=== PATIENT | female | born 1950 | race Caucasian/White ===

== ENCOUNTER 2016-12-22 13:29 | Emergency (ER) | payer OTHER ==
[~2016-12-22] VITALS: Ht 165.1 cm; Wt 96.2 kg
[~2016-12-22 13:29] MED LIST: ALBU1AER9 INH; CLOP1TAB15 PO; FLUT110A INH; GABA-113 PO; LISI-729 PO; METO25TA3 PO; OXYC-57 PO; PANT40TA PO; RANI300T2 PO; SYMIN/8045 INH; TRAZ100T29 PO; VITAMIN B12 INJ INJ
[2016-12-22 13:33] VITALS: TEMP 36.8; O2SAT 95; Ht 165.1 cm; Wt 96.2 kg
[2016-12-22] MEDS ORDERED: OXYCODONE HCL IR 5 MG TAB (IMMEDIATE RELEASE) PO STA (13:51)
[2016-12-22] MEDS ORDERED: ONDANSETRON 4MG OD TAB PO STA (13:51)
[2016-12-22] MEDS ORDERED: HYDR-4313 PO (13:53)
[2016-12-22] MEDS ORDERED: CYAN100074 IM (13:58)
[2016-12-22] MEDS ORDERED: PARO30TA4 PO (13:58)
--- NOTE | 2016-12-22 14:01 | EMERGENCY ROOM VISIT NOTE ---
History Report prepared by Jo-Ann: Irene Enriquez Under the Supervision of: Dr. Doug Quinteros M.D. First contact with patient: 13:46 Chief Complaint: HEAD INJURY (MINOR) Stated Complaint: FALL 1 WK AGO, HIT BACK OF HEAD, REFERRED History of Present Illness The patient is a 66 year old female who presents to the Emergency Room with complaints of a persistent, worsening headache that began 9 days ago. She currently rates her discomfort as a 9/10 in severity. The patient states that she was walking out of the post office 9 days ago and states that her feet went out from under her, noting that she hit the back of her head and back. She notes that her headache has been worsening since the day she fell. The patient additionally notes neck pain, back pain, and shoulder pain. She notes that she has been getting lightheaded intermittently and has been nauseous. The patient denies any loss of consciousness, increased shortness of breath, or vomiting. She states that she is a smoker. The patient states that she is on Aspirin and Plavix, but denies being on Coumadin. She states that she consulted her PCP today and states that she was told to come to the emergency department for further work up. The patient states that she takes Vicodin for pain, noting that she took two prior to arrival without relief of her symptoms. Source of History: patient Onset: 9 days ago Position: head Symptom Intensity: 9/10 Timing: worsening Associated Symptoms: + back pain, + nausea, + neck pain, No LOC, No SOB, No vomiting Note: Associated Symptoms: shoulder pain, recent fall, lightheaded Review of Systems See HPI for pertinent positives & negatives. A total of 10 systems reviewed and were otherwise negative. Past Medical & Surgical Medical Problems: (1) Williamson's esophagus (2) Coronary artery disease (3) GERD (gastroesophageal reflux disease) (4) Hematemesis (5) HTN (hypertension) (6) Hypertension Surgical Problems: (1) H/O cardiac catheterization (2) H/O percutaneous transluminal coronary angioplasty (3) S/P CABG (coronary artery bypass graft) (4) Stented coronary artery Family History Cancer Heart disease Social History Smoking Status: Current Every Day Smoker Marital Status: Occupation Status: disabled Current/Historical Medications Scheduled Acetaminophen/Hydrocodone (Hydrocodone/Acetaminophen 5-325 mg), 1 TAB PO BID Aspirin (Aspirin Chewable), 81 MG PO QAM Atorvastatin (Lipitor), 80 MG PO HS Budesonide/Formoterol Fumarate (Symbicort 80/4.5 Inhaler), 2 PUFFS INH BID Clopidogrel (Plavix), 75 MG PO QAM Cyanocobalamin (Vitamin Deficiency Inject), Unknown Dose IM MONTHLY Ferrous Sulfate (Iron Supplement), 1 TAB PO QAM Fluticasone Propionate Hfa (Flovent Hfa 110MCG Inhaler), 2 PUFF INH BID Fluticasone Propionate (Nasal) (Flonase), 2 SPRAYS MARTINEZ QAM Gabapentin (Neurontin), 300 MG PO TID Lisinopril (Prinivil), 5 MG PO QAM Loratadine (Claritin), 10 MG PO QAM Metoprolol Succ (Toprol Xl) (Toprol-Xl), 12.5 MG PO QAM Montelukast Sodium (Singulair), 10 MG PO QAM Oxygen (Oxygen), 2 LITERS NA HS & PRN Pantoprazole (Protonix), 40 MG PO BID Paroxetine (Paroxetine HCl), 30 MG PO DAILY Ranitidine (Zantac), 300 MG PO HS Tiotropium [place] (Spiriva Handihaler), 1 CAP INH QAM Scheduled PRN Albuterol (Proair Hfa), 2 PUFF INH Q4 PRN for SOB/Wheezing Allergies Coded Allergies: No Known Allergies (Verified , 11/05/16) Physical Exam Vital Signs Date Time Temp Pulse Resp B/P Pulse Ox O2 Delivery O2 Flow Rate FiO2 12/22/16 15:15 84 16 138/78 12/22/16 13:33 36.8 72 18 122/73 95 Room Air Physical Exam GENERAL: Patient is in no acute distress. HEENT: No acute trauma, normocephalic atraumatic, mucous membranes moist, no nasal congestion, no scleral icterus. NECK: Contusion noted to posterior neck, no hematoma, no yanelis stepoff, but entire area is sore to touch. No stridor, no adenopathy, trachea is midline. LUNGS: Scattered wheezing, breath sounds are equal, no respiratory distress, no rhonchi. HEART: Without murmurs gallops or rubs, regular rate and rhythm. ABDOMEN: Soft, nontender, bowel sounds positive, no hernias, no peritonitis. EXTREMITIES: Brace on left wrist. No cyanosis or edema, no signs for acute trauma. NEUROLOGIC: Oriented x 3, no acute motor or sensory deficits, no focal weakness. SKIN: No rash, no jaundice, no diaphoresis. Medical Decision & Procedures ER Provider Diagnostic Interpretation: CT results as stated below per my review and radiologist interpretation: CT HEAD WITHOUT CONTRAST (CT) CLINICAL HISTORY: Headache. Head trauma. COMPARISON STUDY: 09/01/2006 TECHNIQUE: Axial CT of the brain is performed from the vertex to the skull base. IV contrast was not administered for this examination. CT DOSE: FINDINGS: No intra or extra-axial mass lesions are visualized. There is no CT evidence of acute cortical infarction. There is no evidence of midline shift. There is no acute hemorrhage. No calvarial fractures are visualized. There are minimal white matter hypodensities likely on a small vessel basis. There is no evidence of pathologic ventricular dilatation. There is no acute sinusitis. Postsurgical changes are present within the paranasal sinuses. The right mastoid is somewhat sclerotic. IMPRESSION: No acute intracranial findings Electronically signed by: Adrien Hebert M.D. 12/22/2016 2:25 PM Dictated Date/Time: 12/22/2016 2:[address] DOSE: 929.66 mGy.cm HISTORY: FALL, NECK PAIN TECHNIQUE: Multiaxial CT images of the cervical spine were performed and reformatted in the sagittal and coronal plane without the use of contrast. COMPARISON: None. FINDINGS: No fractures. No subluxation. Prevertebral soft tissues and the C1-C2 interval are intact. No pneumothorax. Distended proximal esophagus. Moderate disc space narrowing at C5-C6 and C6-C7 with small endplate osteophytes present results in mild central canal narrowing at these levels. IMPRESSION: No fractures within the cervical spine. Electronically signed by: John Jones M.D. 12/22/2016 3:02 PM Dictated Date/Time: 12/22/2016 2:42 PM Medications Administered Medications (Trade) Dose Ordered Sig/Sj Route Start Time Stop Time Status Last Admin Dose Admin Ondansetron HCl (Zofran Odt) 4 mg NOW STAT PO 12/22/16 13:51 12/22/16 13:54 DC 12/22/16 14:08 4 MG Oxycodone HCl (Roxicodone Immediate Rel Tab) 5 mg NOW STAT PO 12/22/16 13:51 12/22/16 13:54 DC 12/22/16 14:09 5 MG ED Course 1347: The patient was evaluated in room A8. A complete history and physical exam was performed. 1351: Ordered Oxycodone HCl 5 mg PO, Zofran Odt 4 mg PO. 1507: I reevaluated the patient and she is resting comfortably. I discussed the exam findings with her and I discussed the treatment plan. She verbalized complete understanding and agreement. She is ready to go home. Medical Decision The patient is a 66 year old female who presents to the ED with complaints of a headache. Differential diagnoses considered include Intracranial bleeding, cervical spine fracture, concussion, contusion, skull fracture. The patient presents for a headache and nausea. She fell 9 days ago. She is on aspirin and Plavix. She has an older-appearing hematoma to the posterior cervical spine on my exam. Brain CT shows no skull fracture, no bleed or mass effect. C-spine CT shows no acute fracture. I could not find evidence for injury to the other areas of her body based on my exam. The patient's fall does sound mechanical. She slipped on a slippery surface and went to the ground. During her ER stay, she was given oral oxycodone for pain, oral Zofran for nausea. She is being discharged, I talked to her about the possibility of concussion. She will follow with her doctors office and return here for worsening symptoms. She has pain meds to use at home for her discomfort. Impression Primary Impression: Closed head injury Additional Impressions: Concussion Neck pain, acute Scribe Attestation The scribe's documentation has been prepared under my direction and personally reviewed by me in its entirety. I confirm that the note above accurately reflects all work, treatment, procedures, and medical decision making performed by me. Departure Information Dispostion Home / Self-Care Referrals Juliane Oconnor D.O. (PCP) Forms HOME CARE DOCUMENTATION FORM, IMPORTANT VISIT INFORMATION Patient Instructions Concussion, My [facility] [place] [facility] Additional Instructions pain meds at home as before ice may help tylenol may help rest follow with april ag[facility] brain CT scan today was ok--no bleeding noted Problem Qualifiers
--- NOTE | 2016-12-22 14:27 | DIAGNOSTIC IMAGING REPORT ---
CT HEAD WITHOUT CONTRAST (CT) CLINICAL HISTORY: Headache. Head trauma. COMPARISON STUDY: 09/01/2006 TECHNIQUE: Axial CT of the brain is performed from the vertex to the skull base. IV contrast was not administered for this examination. CT DOSE: FINDINGS: No intra or extra-axial mass lesions are visualized. There is no CT evidence of acute cortical infarction. There is no evidence of midline shift. There is no acute hemorrhage. No calvarial fractures are visualized. There are minimal white matter hypodensities likely on a small vessel basis. There is no evidence of pathologic ventricular dilatation. There is no acute sinusitis. Postsurgical changes are present within the paranasal sinuses. The right mastoid is somewhat sclerotic. IMPRESSION: No acute intracranial findings Electronically signed by: Adrien Hebert M.D. 12/22/2016 2:25 PM Dictated Date/Time: 12/22/2016 2:24 PM
--- NOTE | 2016-12-22 15:04 | DIAGNOSTIC IMAGING REPORT ---
CERVICAL SPINE CT CT DOSE: 929.66 mGy.cm HISTORY: FALL, NECK PAIN TECHNIQUE: Multiaxial CT images of the cervical spine were performed and reformatted in the sagittal and coronal plane without the use of contrast. COMPARISON: None. FINDINGS: No fractures. No subluxation. Prevertebral soft tissues and the C1-C2 interval are intact. No pneumothorax. Distended proximal esophagus. Moderate disc space narrowing at C5-C6 and C6-C7 with small endplate osteophytes present results in mild central canal narrowing at these levels. IMPRESSION: No fractures within the cervical spine. Electronically signed by: John Jones M.D. 12/22/2016 3:02 PM Dictated Date/Time: 12/22/2016 2:42 PM
[2016-12-22 15:15] VITALS: BP 138/78; PULSE 84
[2016-12-22] MEDS ORDERED: MONT1TAB3 PO (15:24)
[2016-12-22] MEDS ORDERED: BUPR-79 PO (15:24)
[2016-12-22] MEDS ORDERED: ATOR-26 PO (15:24)
[2016-12-22] MEDS ORDERED: METO-157 PO (15:24)
[2016-12-22] MEDS ORDERED: OXGN (15:24)
[2016-12-22] MEDS ORDERED: TIOTCAP INH (15:24)
[2016-12-22] MEDS ORDERED: ASPCH81X PO (15:24)
[2016-12-22] MEDS ORDERED: FERR325T51 PO (15:24)
[2016-12-22] MEDS ORDERED: CLR10 PO (15:24)
[2016-12-22] MEDS ORDERED: FLUT0.0529 NAE (16:53)
[2017-01-15] MEDS ORDERED: FERROUS SULFATE PO (14:08)
[2017-01-15] MEDS ORDERED: PRLSR20 PO (14:08)
[2017-01-15] MEDS ORDERED: METO-157 PO (14:08)
[2017-01-15] MEDS ORDERED: VICODIN PO (14:08)
[2017-01-15] MEDS ORDERED: SUMA100T16 PO (14:08)
[2017-01-15] MEDS ORDERED: LXT PO (14:08)
[2017-01-15] MEDS ORDERED: METO1TAB69 PO (14:08)
[2017-01-15] MEDS ORDERED: SIMV80TA2 PO (14:10)
[2017-01-15] MEDS ORDERED: GABA-113 PO (14:11)
[2017-01-15] MEDS ORDERED: FLUO40CA8 PO (14:12)
[2017-01-15] MEDS ORDERED: NTRGSL/4 UT (14:15)
[2017-03-23] MEDS ORDERED: METO1TAB31 PO (19:45)
[2017-03-27] MEDS ORDERED: LVQ500 PO (12:20)
[2017-03-27] MEDS ORDERED: PRED10TA PO (12:20)
[2017-03-27] MEDS ORDERED: NCDT21 TD (12:20)
[2017-04-09] MEDS ORDERED: TRAZ100T29 PO (09:24)
[2017-04-09] MEDS ORDERED: PRED10TA PO (09:24)
[2017-04-09] MEDS ORDERED: FERR1TAB23 PO (09:24)
[2017-04-09] MEDS ORDERED: FLUO20CA20 PO (09:24)
[2017-04-09] MEDS ORDERED: OMEP40CA41 PO (09:27)
== END 2016-12-22 15:16 | disposition home or self-care (01) ==
LOC: C.EDB 13:31 → C.EDD 15:16
DX: S06.0X0A Concussion without loss of consciousness, initial encounter (principal); M54.2 Cervicalgia; W19.XXXA Unspecified fall, initial encounter; Y92.242 Post office as the place of occurrence of the external cause; F17.210 Nicotine dependence, cigarettes, uncomplicated; Z79.82 Long term (current) use of aspirin; Z79.01 Long term (current) use of anticoagulants; K22.70 Barrett's esophagus without dysplasia; I25.10 Atherosclerotic heart disease of native coronary artery without angina pectoris; K21.9 Gastro-esophageal reflux disease without esophagitis; I10 Essential (primary) hypertension; Z95.5 Presence of coronary angioplasty implant and graft; Z95.1 Presence of aortocoronary bypass graft; Z79.899 Other long term (current) drug therapy

== ENCOUNTER 2017-01-20 10:04 | Day surgery (SDC) | payer OTHER ==
[2017-01-15 14:17] VITALS: BMI 34.0
--- NOTE | 2017-01-15 15:12 | PAT Medication Instructions ---
Service Date Jan 15, 2017. Current Home Medication List Albuterol (Proair Hfa), 2 PUFF INH Q4 PRN for SOB/Wheezing Aspirin (Aspirin Chewable), 81 MG PO QAM Budesonide/Formoterol Fumarate (Symbicort 80/4.5 Inhaler), 2 PUFFS INH BID Clopidogrel (Plavix), 75 MG PO QAM Cyanocobalamin (Vitamin Deficiency Inject), Unknown Dose IM MONTHLY Fluoxetine (Prozac), 40 MG PO QAM Fluticasone Propionate Hfa (Flovent Hfa 110MCG Inhaler), 2 PUFF INH BID Fluticasone Propionate (Nasal) (Flonase), 2 SPRAYS MARTINEZ QAM Gabapentin (Neurontin), 300 MG PO AM/NOON Gabapentin (Neurontin), 600 MG PO HS Laxative (Laxative), 1 TAB PO PRN Loratadine (Claritin), 10 MG PO QAM Metoclopramide (Reglan), 5 MG PO QAM Metoprolol Succ (Toprol Xl) (Toprol-Xl ), 100 MG PO QAM Montelukast Sodium (Singulair), 10 MG PO QAM Nitroglycerin (Nitrostat), 0.4 MG UT PRN Omeprazole (Prilosec), 40 MG PO QAM Oxygen (Oxygen), 2 LITERS NA HS & PRN Paroxetine (Paroxetine HCl), 30 MG PO QAM Ranitidine (Zantac), 300 MG PO HS Simvastatin (Zocor), 80 MG PO QAM Sumatriptan Succinate (Imitrex), 100 MG PO PRN PRN for UD Tiotropium [place] (Spiriva Handihaler), 1 CAP INH QAM [Ferrous Sulfate], 150 MG PO QAM [Vicodin], 1-2 TAB PO Q4H 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 Instructions For Your Scheduled Surgery - Continue as directed: Nitroglycerin (Nitrostat), 0.4 MG UT PRN - Instructions per surgeon and prescribing physician: Clopidogrel (Plavix), 75 MG PO QAM Aspirin (Aspirin Chewable), 81 MG PO QAM - Hold the following medications the morning of surgery: [Ferrous Sulfate], 150 MG PO QAM Laxative (Laxative), 1 TAB PO PRN Loratadine (Claritin), 10 MG PO QAM - Take the following medications the morning of surgery with a sip of water: Albuterol (Proair Hfa), 2 PUFF INH Q4 PRN for SOB/Wheezing (use if needed; BRING TO HOSPITAL) [Vicodin], 1-2 TAB PO Q4H PRN for RN (may take if needed up to 4 hours prior to surgery) Budesonide/Formoterol Fumarate (Symbicort 80/4.5 Inhaler), 2 PUFFS INH BID Fluticasone Propionate Hfa (Flovent Hfa 110MCG Inhaler), 2 PUFF INH BID Fluoxetine (Prozac), 40 MG PO QAM Omeprazole (Prilosec), 40 MG PO QAM Simvastatin (Zocor), 80 MG PO QAM Paroxetine (Paroxetine HCl), 30 MG PO QAM Gabapentin (Neurontin), 300 MG PO AM/NOON Metoclopramide (Reglan), 5 MG PO QAM Metoprolol Succ (Toprol Xl) (Toprol-Xl ), 100 MG PO QAM Montelukast Sodium (Singulair), 10 MG PO QAM Fluticasone Propionate (Nasal) (Flonase), 2 SPRAYS MARTINEZ QAM Tiotropium [place] (Spiriva Handihaler), 1 CAP INH QAM Sumatriptan Succinate (Imitrex), 100 MG PO PRN PRN for UD - Take the following medications as scheduled the night before surgery: Albuterol (Proair Hfa), 2 PUFF INH Q4 PRN for SOB/Wheezing [Vicodin], 1-2 TAB PO Q4H PRN for RN Budesonide/Formoterol Fumarate (Symbicort 80/4.5 Inhaler), 2 PUFFS INH BID Fluticasone Propionate Hfa (Flovent Hfa 110MCG Inhaler), 2 PUFF INH BID Laxative (Laxative), 1 TAB PO PRN Gabapentin (Neurontin), 600 MG PO HS Ranitidine (Zantac), 300 MG PO HS Sumatriptan Succinate (Imitrex), 100 MG PO PRN PRN for UD If you have any questions please call us at [phone] or [phone] or [phone]
--- NOTE | 2017-01-15 15:19 | DIAGNOSTIC IMAGING REPORT ---
CHEST 2 VIEWS ROUTINE HISTORY: Preop. COMPARISON: Chest 06/03/2016. FINDINGS: There are postoperative changes. The heart is stable in size. Prior cholecystectomy. Stable blunting of the costophrenic sulci suggest trace pleural effusions or pleural scarring. Linear densities within the right mid to lower lung zone likely represents scarring. This is also unchanged. No pneumothorax. No new focal lung consolidations. No evidence for pulmonary edema. IMPRESSION: No significant change compared to the prior study. No acute process. Electronically signed by: John Jones M.D. 01/15/2017 3:18 PM Dictated Date/Time: 01/15/2017 3:16 PM
[2017-01-15 15:26] LABS: BASO % 0.3 %; BASO ABS # 0.03 K/uL (0-0.2); COMPLETE YES; EOS % 3.3 %; HEMATOCRIT 42.7 % (37-47); LYMPH % 27.2 %; LYMPH ABS # 3.24 K/uL (1.2-3.4); MEAN CELL VOLUME 92.8 fL (80-100); MEAN CORPUSCULAR HEMOGLOBIN 30.7 pg (25-34); MEAN PLATELET VOLUME 9.5 fL (7.4-10.4); MONO % 7.6 %; NEUT % 60.6 %; PLATELET COUNT 425 K/uL (130-400); WHITE BLOOD COUNT 11.93 K/uL (4.8-10.8)
[2017-01-15 15:28] LABS: URINE APPEARANCE CLEAR (CLEAR); URINE BILIRUBIN NEG (NEG); URINE COLOR YELLOW; URINE NITRITE NEG (NEG); URINE SPECIFIC GRAVITY 1.004 (1.000-1.030); UROBILINOGEN NEG (NEG)
[2017-01-15 15:30] LABS: MANUAL MICROSCOPIC REQUIRED? NO; REVIEW REQ? NO
[2017-01-15 15:38] LABS: PARTIAL THROMBOPLASTIN RATIO 1.1; PROTHROMBIN TIME (PATIENT) 10.6 SECONDS (9.0-12.0)
[2017-01-15 15:49] LABS: BUN/CREATININE RATIO 10.8 (10-20); CALCIUM 9.3 mg/dl (8.5-10.1); CREATININE 0.97 mg/dl (0.60-1.20); POTASSIUM 3.9 mmol/L (3.5-5.1)
--- NOTE | 2017-01-19 17:19 | HISTORY & PHYSICAL EXAMINATION ---
DATE OF ADMISSION: 01/20/2017 HISTORY OF PRESENT ILLNESS: The patient is a 66-year-old white female, 5 feet 5 inches, 218 pounds, BMI of 36.28. The patient presents after sustaining a fall injuring her right elbow. She has a calcification avulsion of a piece of chip of bone from her lateral epicondyle, which has been ongoing painful. It is palpable under the skin and is painful for her. She has no evidence of disruption of her extensor mechanism. She is neurovascularly and neurologically intact. PAST MEDICAL HISTORY: Significant for previous history of angina, previous myocardial infarction, hypertension, hypercholesterolemia, history of a previous asthma as well as chronic cough, shortness of breath when lying flat, no history of thyroid or diabetes. PAST SURGICAL HISTORY: Consistent with previous ganglion cyst excision. MEDICATIONS: Include metoprolol 100 mg b.i.d., omeprazole 20 mg daily, lorazepam 0.5 mg p.o. at bedtime, Plavix 75 mg 1 p.o. daily, Zetia 10 mg p.o. daily, simvastatin 80 mg p.o. daily, trazodone 50 mg p.o. at bedtime, Singulair 81 mg p.o. daily. REVIEW OF SYSTEMS: Otherwise unremarkable. See history of present illness for pertinent positives. PHYSICAL EXAMINATION: GENERAL: Reveals a very pleasant 66-year-old white female, 5 fee 5 inches, 218, BMI of 36.28 with the above complaints noted. HEENT: Otherwise unremarkable, atraumatic, normocephalic. HEART: Regular at 72 beats per minute. LUNGS: Clear without rales, rhonchi, or wheezes noted. ABDOMEN: Soft, nontender, nondistended. Bowel sounds are present in all 4 quadrants. RECTAL: No rectal examination was performed. MUSCULOSKELETAL: Consistent with that of a painful right elbow with piece of free floating calcification. PLAN: For surgical procedure. Postop pain management, DVT prophylaxis, antibiotics as noted above. MTDD
[~2017-01-20] VITALS: Ht 165.1 cm; Wt 95.0 kg
--- NOTE | 2017-01-20 07:16 | History & Physical Bridge Note ---
H&P Re-Evaluation Bridge Note: I have examined the patient, reviewed the History & Physical and in the interval since the performance of the History & Physical I have noted the following changes of clinical significance: No changes noted
[~2017-01-20 10:04] MED LIST changes: +ASPCH81X PO; +BUPIVACAINE/EPINEPHRINE 0.25% 1:200,000 30 ML VIAL ONE; +CEFAZOLIN 2000 MG/60 ML D5W 60 ML IV SCH; +CLR10 PO; +CYAN100074 IM; +DEXAMETHASONE SOD INJ 4 MG/ML VIAL ONE; +FENTANYL CITRATE INJ 50 MCG/1 ML 2 ML VIAL ONE; +FERROUS SULFATE PO; +FLUO40CA8 PO; +FLUT0.0529 NAE; +LACTATED RINGER'S 1000ML IV SCH; +LIDOCAINE HCL 2% 2 ML VIAL (20MG/ML) ONE; -LISI-729 PO; +LXT PO; +METO-157 PO; +METO1TAB69 PO; -METO25TA3 PO; +MIDAZOLAM HCL 1 MG/ML 2ML VIAL ONE; +MONT1TAB3 PO; +NTRGSL/4 UT; +ONDANSETRON INJ 2 MG/ML 2 ML VIAL ONE; +OXGN; -OXYC-57 PO; -PANT40TA PO; +PARO30TA4 PO; +PRLSR20 PO; +PROPOFOL IV EMULSION 10 MG/ML 20 ML VIAL IV ONE; +SIMV80TA2 PO; +SUMA100T16 PO; +TIOTCAP INH; -TRAZ100T29 PO; +VICODIN PO; -VITAMIN B12 INJ INJ
[2017-01-20 10:34] VITALS: BP 182/98; PULSE 73; TEMP 36.6; O2SAT 95; Ht 165.1 cm; Wt 95.0 kg
[2017-01-20] MEDS ORDERED: PHENYLEPHRINE HCL INJ 10 MG/ML VIAL ONE (11:39)
--- NOTE | 2017-01-20 12:00 | [facility] Post Operative Brief Note ---
Immediate Operative Summary Operative Date Jan 20, 2017. Pre-Operative Diagnosis calcification lateral epicondyle rt elbow Post-Operative Diagnosis same Procedure(s) Performed excision calcification rt lateral epicondyle Surgeon shannon Poultry Pinner Surgeon(s) rudy Estimated Blood Loss 1cc Findings 1 x 1 cm calcification lateral epicondyle Specimens calcification Complication(s) None Disposition Recovery Room / PACU
--- NOTE | 2017-01-20 12:13 | OPERATIVE REPORT ---
DATE OF OPERATION: 01/20/2017 PREOPERATIVE DIAGNOSIS: Ankle calcific mass right extensor mechanism right elbow. POSTOPERATIVE DIAGNOSIS: Same. PROCEDURE: Excision of painful calcific mass x3, right elbow extensor mechanism. SURGEON: Dr. Pillai. SALES OPERATIONS ASSISTANT: Janak Howard, who was necessary for prepping, draping, retraction, wound closure defects to subsequent skin and was necessary for the case. COMPLICATIONS: None. HISTORY OF PRESENT ILLNESS: The patient presents as a very pleasant 66-year-old white female with complaints of painful masses about her right elbow. She has 3 masses measuring approximately 5 x 5 mm involving the lateral epicondyle insertion. DESCRIPTION OF PROCEDURE: After proper prepping and draping of the right elbow region incision made over the region of the lateral epicondyle. Special attention was paid to protect neurovascular structures at all times. The calcific masses were excised in their entirety. The extensor mechanism was repaired utilizing 2-0 Vicryl, subQ was closed with 3-0 Vicryl, skin was closed with 4-0 Monocryl. Sterile compression dressing was placed. The patient was taken to the recovery room in stable condition. ESTIMATED BLOOD LOSS: 1 mL. COMPLICATIONS: None. TOURNIQUET TIME: 15 minutes. I attest to the content of the Intraoperative Record and any orders documented therein. Any exceptio ns are noted below.
[2017-01-20] MEDS ORDERED: SODIUM CHLORIDE 0.9% 1000ML 1,000 ML IV SCH (12:14)
[2017-01-20] MEDS ORDERED: HYDROCODONE/ACETAMOPHEN 5/325MG TAB PO PRN ×2 (12:15)
[2017-01-20] MEDS ORDERED: ATROPINE SULFATE 0.1 MG/ML 5ML SYR IV PRN (12:15)
[2017-01-20] MEDS ORDERED: EpHEDrine SULFATE INJ 50 MG/ML AMP IV PRN (12:15)
[2017-01-20] MEDS ORDERED: ONDANSETRON INJ 2 MG/ML 2 ML VIAL IV PRN ×2 (12:15)
[2017-01-20] MEDS ORDERED: HYDR-5688 PO (12:20)
--- NOTE | 2017-01-20 12:26 | Discharge Instructions ---
Discharge Instructions Visit Reason for Visit: Right Elbow Calcific Tendinitis Discharge Discharge Diagnosis / Problem: excision right elbow calcification Discharge Goals Goal(s): Decrease discomfort, Improve function, Increase independence Activity Recommendations Activity Limitations: as noted below Lifting Limitations: gradually increase as tolerated Exercise/Sports Limitations: gradually increase as tolerated Anesthesia Post Anesthesia Instructions: If you have had General Anesthesia or IV Sedation: * Do not drive today. * Resume driving when surgeon permits. * Do not make important decisions or sign legal documents today. * Call surgeon for: 1. Temperature elevations greater than 101 degrees F. 2. Uncontrollable pain. 3. Excessive bleeding. 4. Persistent nausea and vomiting. 5. Medication intolerance (nausea, vomiting or rash). * For nausea and vomiting use only clear liquids such as: tea, soda, bouillon until nausea subsides, then gradually increase diet as tolerated. * If you have any concerns or questions, call your surgeon's office. If physician is unavailable and it is an emergency, call 911 or go to the nearest emergency room. . Instructions / Follow-Up Instructions / Follow-Up Anesthesia . Post Anesthesia Instructions: If you have had General Anesthesia or IV Sedation: * Do not drive today. * Resume driving when surgeon permits. * Do not make important decisions or sign legal documents today. * Call surgeon for: 1. Temperature elevations greater than 101 degrees F. 2. Uncontrollable pain. 3. Excessive bleeding. 4. Persistent nausea and vomiting. 5. Medication intolerance (nausea, vomiting or rash). * For nausea and vomiting use only clear liquids such as: tea, soda, bouillon until nausea subsides, then gradually increase diet as tolerated. * If you have any concerns or questions, call your surgeon's office. If physician is unavailable and it is an emergency, call 911 or go to the nearest emergency room. . Instructions / Follow-Up Instructions / Follow-Up ACTIVITY RECOMMENDATIONS: * Avoid lifting anything heavier than a medium water glass until your first post operative visit. SPECIAL CARE INSTRUCTIONS: * Your bandage should be left in place. * Some drainage onto the dressing may occur. This is normal. If it continues and is excessive, please call the office. * If the bandage feels excessively tight, you may loosen the elastic bandage. Then call the physician's office for further instructions. * If possible, keep your hand elevated above the level of your heart for the first 2 post operative days as much as possible. You may use a sling if necessary. * You should move your fingers regularly (50-100 motions per hour) unless otherwise instructed. * You may shower with a waterproof covering over the bandage. * Keep the bandage clean and dry. SPECIAL PRECAUTIONS: * If you notice increased drainage, fever over 101 degrees F. or severe, unremitting pain, call your physician/office at . * You may have been prescribed pain medication. If you experience nausea and/or skin rash, discontinue this medication and contact our office for an alternative medication. FOLLOW UP VISIT: If appointment is not already scheduled: Please call [facility] to make a follow-up appointment after your surgery at . Diet Recommendations Recommended Home Diet: resume previous diet Procedures Procedures Performed: Left Wrist Revision Excision Recurrent Ganglion Cyst Pending Studies Studies pending at discharge: no Medical Emergencies . Who to Call and When: Medical Emergencies: If at any time you feel your situation is an emergency, please call [phone] immediately. . Non-Emergent Contact Non-Emergency issues call your: Surgeon Contact Number: [phone] Call Non-Emergent contact if: temperature is above 101.5, your pain is worsening, wound has increased drainage, wound has increased redness Diet Recommendations Recommended Home Diet: resume previous diet Procedures Procedures Performed: excision calcification rt lateral epicondyle Pending Studies Studies pending at discharge: no Medical Emergencies . Who to Call and When: Medical Emergencies: If at any time you feel your situation is an emergency, please call [phone] immediately. . Non-Emergent Contact Non-Emergency issues call your: Primary Care Provider, Surgeon . . "Provider Documentation" section prepared by Janak Howard. [place] Drug Monitoring Program Search Results: patient reviewed within database, no issues identified
[2017-01-20] MEDS ORDERED: BUPIVACAINE 0.5% W/EPI 1:200,000 INJ ONE (12:27)
[2017-01-20] MEDS: FENTANYL CITRATE INJ 50 MCG/1 ML 2 ML VIAL IV PRN ×3 (12:28→12:43)
[2017-01-20] MEDS ORDERED: NURSING VERBAL MED ORDER ONE (12:36)
[2017-01-20 12:44] VITALS: PULSE 71; O2SAT 97
--- NOTE | 2017-01-20 12:56 | Anesthesiology Progress Note ---
Anesthesia Post Op Note Date & Time Jan 20, 2017 at 12:56 Vital Signs Pain Intensity: 5.0 Vital Signs Past 12 Hours Date Time Temp Pulse Resp B/P Pulse Ox O2 Delivery O2 Flow Rate FiO2 01/20/17 12:44 71 14 97 Room Air 01/20/17 12:35 76 13 142/79 100 Mask 10 01/20/17 12:25 75 15 141/84 100 Mask 10 01/20/17 12:15 36.1 76 12 167/106 100 Mask 10 01/20/17 10:34 36.6 73 20 182/98 95 Room Air Notes Mental Status: alert / awake / arousable, participated in evaluation Pt Amnestic to Procedure: Yes Nausea / Vomiting: adequately controlled Pain: adequately controlled Airway Patency, RR, SpO2: stable & adequate BP & HR: stable & adequate Hydration State: stable & adequate Anesthetic Complications: no major complications apparent
[2017-01-20 13:10] VITALS: BP 129/70; PULSE 77; TEMP 37; O2SAT 96
[2017-01-20] MEDS ORDERED: ALBUT/IPRATROP 3MG/0.5MG NEB 3 ML VIAL INH ONE (13:30)
[2017-01-20 13:40] VITALS: BP 142/65; PULSE 82; O2SAT 94
[2017-01-20 13:59] VITALS: BP 139/66; PULSE 79; TEMP 36.9; O2SAT 94
[2017-03-23] MEDS ORDERED: METO1TAB31 PO (19:45)
[2017-03-27] MEDS ORDERED: NCDT21 TD (12:20)
[2017-03-27] MEDS ORDERED: LVQ500 PO (12:20)
[2017-03-27] MEDS ORDERED: PRED10TA PO (12:20)
[2017-04-09] MEDS ORDERED: FERR1TAB23 PO (09:24)
[2017-04-09] MEDS ORDERED: FLUO20CA20 PO (09:24)
[2017-04-09] MEDS ORDERED: TRAZ100T29 PO (09:24)
[2017-04-09] MEDS ORDERED: PRED10TA PO (09:24)
[2017-04-09] MEDS ORDERED: OMEP40CA41 PO (09:27)
== END 2017-01-20 14:00 | disposition home or self-care (01) ==
LOC: C.ACU 10:04
PROVIDERS: ATTEND Orthopaedic Surgery
DX: R22.31 Localized swelling, mass and lump, right upper limb (principal); I10 Essential (primary) hypertension; Z79.899 Other long term (current) drug therapy; I25.2 Old myocardial infarction

== ENCOUNTER → 2017-03-10 | Outpatient (CLI) | payer OTHER ==
[~2017-03-10] MED LIST changes: +ALBU18002 INH; +ANTIBIO; +ANTIBIOTIC PO; +ATOR80TA PO; -BUPIVACAINE/EPINEPHRINE 0.25% 1:200,000 30 ML VIAL ONE; -CEFAZOLIN 2000 MG/60 ML D5W 60 ML IV SCH; -DEXAMETHASONE SOD INJ 4 MG/ML VIAL ONE; +DOXY100C PO; +DULO60CA44 PO; -FENTANYL CITRATE INJ 50 MCG/1 ML 2 ML VIAL ONE; +FERR1TAB23 PO; +FLUO20CA20 PO; +FLUT0.15; +FLUT0.15 NAE; +FLUT1AER5 INH; +FLVHFA110 INH; +FLVHFA44 INH; +HYDR-3419 PO; +HYDR-5688 PO; +IPRASOL4 INH; +ISOS30TA3 PO; -LACTATED RINGER'S 1000ML IV SCH; -LIDOCAINE HCL 2% 2 ML VIAL (20MG/ML) ONE; +LISI-729 PO; +LORA10CA2 PO; +LVQ500 PO; +METO-478 PO; +METO100T44 PO; -METO1TAB69 PO; -MIDAZOLAM HCL 1 MG/ML 2ML VIAL ONE; +NCDT21 TD; +OMEP40CA41 PO; -ONDANSETRON INJ 2 MG/ML 2 ML VIAL ONE; +PRED-301 PO; +PRED10TA PO; +PRED20TA PO; +PREG1CAP70 PO; -PROPOFOL IV EMULSION 10 MG/ML 20 ML VIAL IV ONE; +REGADENOSON 0.4 MG/5 ML SYR ONE; +RXC5 PO; +SPRIN/30 INH; -SUMA100T16 PO; +TRAZ100T29 PO; +TRAZ50TA35 PO; -VICODIN PO; +VNTHFA/IN INH
--- NOTE | 2017-03-10 23:51 | MYOCARDIAL PERFUSION SCAN ---
NUCLEAR STRESS TEST REQUESTING PHYSICIAN: Braden Thakur Jr, MD STUDY TITLE: One day nuclear medicine technetium-99m Cardiolite myocardial perfusion scan. INDICATIONS: Atypical chest pain, history of coronary artery disease. EKG: Baseline normal sinus rhythm with nonspecific ST changes, ventricular rate of 83. LEXISCAN EKG: Heart rate dom from 81 to 103 representing 66% of maximum predicted heart rate. Study was nondiagnostic with no significant EKG changes noted with Lexiscan. There were occasional PVCs. TECHNIQUE: For the stress portion of the study, a 33.1 mCi of technetium-99m Cardiolite IV was injected at 13:12 p.m. on 03/10/2017. Thirty minutes following the injection, imaging of the heart was performed in multiple projections. For the rest portion of the study, 10.9 mCi of technetium-99m Cardiolite was injected IV at 11:35 a.m. One hour following the injection, imaging of the heart was performed in the same projections. FINDINGS: Raw images were reviewed in detail. There was suggestion of mild left lateral breast attenuation. There was mild gut and liver tracer uptake impacting the inferior imaging of the border of the heart on the stress, more so than the rest. There was no significant pathologic extracardiac uptake. The short axis, vertical long axis and horizontal long axis images were reviewed in detail. There was no significant visual TID. There was a small, mild largely reversible perfusion defect involving the mid inferolateral and apical inferior wall. Summed difference score of 3. LV function was mild to moderately reduced with an EF of 40%, visually EF appears normal. LV size was normal with end-diastolic volume of 39. There was septal dyskinesis. Otherwise, no regional wall motion abnormalities. IMPRESSION: 1. Small, mild largely reversible perfusion defect involving the mid inferolateral and apical inferior chong. Suspect this represents artifact. Less likely potentially represents a small amount of single vessel ischemia involving possible PDA or posterolateral branch. 2. Normal left ventricular size. [id number] calculated left ventricular dysfunction with an ejection fraction of 40%. Visually, left ventricular function appears normal with septal dyskinesis consistent with postoperative state. 3. Nondiagnostic Lexiscan EKG with only occasional PVCs. MTDD
== END | disposition home or self-care (01) ==
LOC: C.NUCL 10:48
PROVIDERS: ATTEND Internal Medicine Cardiovascular Disease
DX: R07.89 Other chest pain (principal); I25.10 Atherosclerotic heart disease of native coronary artery without angina pectoris; R06.09 Other forms of dyspnea

== ENCOUNTER 2017-03-16 10:20 | Emergency (ER) | payer OTHER ==
[~2017-03-16] VITALS: Ht 165.1 cm; Wt 96.6 kg
[~2017-03-16 10:20] MED LIST changes: -ALBU18002 INH; -ANTIBIO; -ANTIBIOTIC PO; -ATOR80TA PO; -DOXY100C PO; -DULO60CA44 PO; -FERR1TAB23 PO; -FLUO20CA20 PO; -FLUT0.15; -FLUT0.15 NAE; -FLUT1AER5 INH; -FLVHFA110 INH; -FLVHFA44 INH; -HYDR-3419 PO; -IPRASOL4 INH; -ISOS30TA3 PO; -LISI-729 PO; -LORA10CA2 PO; -LVQ500 PO; -METO-157 PO; -METO-478 PO; -NCDT21 TD; -OMEP40CA41 PO; -PRED-301 PO; -PRED10TA PO; -PRED20TA PO; -PREG1CAP70 PO; -REGADENOSON 0.4 MG/5 ML SYR ONE; -RXC5 PO; -SPRIN/30 INH; -TRAZ100T29 PO; -TRAZ50TA35 PO; -VNTHFA/IN INH
[2017-03-16 10:21] VITALS: TEMP 36.6; Ht 165.1 cm; Wt 96.6 kg
[2017-03-16] MEDS ORDERED: SODIUM CHLORIDE 0.9% 1000ML 1,000 ML IV STA (10:31)
[2017-03-16] MEDS ORDERED: ALBUT/IPRATROP 3MG/0.5MG NEB 3 ML VIAL INH STA (10:31)
[2017-03-16] MEDS ORDERED: METHYLPREDNISOLONE 125 MG VIAL IV STA (10:31)
[2017-03-16] MEDS ORDERED: ACETAMINOPHEN 500 MG TAB PO STA (10:39)
[2017-03-16] MEDS ORDERED: ALBU18002 INH (10:50)
--- NOTE | 2017-03-16 10:55 | DIAGNOSTIC IMAGING REPORT ---
SINGLE VIEW CHEST CLINICAL HISTORY: Dyspnea. FINDINGS: An AP, portable, upright chest radiograph is compared to study dated 01/15/2017. The examination is degraded by portable technique, large body habitus, and patient rotation. The patient is status post midline sternotomy. The heart is top normal for projection and there is atherosclerotic calcification of the thoracic aorta. The pulmonary vasculature is noncongested. Chronic interstitial thickening is unchanged. Scarring in the right lower lung is similar to previous. No airspace consolidation is identified typical for pneumonia. Small pleural effusions are suspected. No pneumothorax is seen. The skeletal structures are osteopenic. The bony thorax is grossly intact. Cholecystectomy clips are identified in the right upper quadrant. IMPRESSION: 1.There is no airspace consolidation typical for pneumonia. 2. Small pleural effusions. Electronically signed by: Doug Figueredo M.D. 03/16/2017 10:53 AM Dictated Date/Time: 03/16/2017 10:51 AM
[2017-03-16] MEDS ORDERED: SPRIN/30 INH (11:11)
[2017-03-16] MEDS ORDERED: FLUT0.15 NAE (11:12)
[2017-03-16] MEDS ORDERED: FLVHFA110 INH (11:16)
[2017-03-16 11:24] LABS: BASO % 0.2 %; BASO ABS # 0.02 K/uL (0-0.2); COMPLETE YES; EOS % 3.3 %; HEMATOCRIT 34.7 % (37-47); IG% 0.6 %; LYMPH % 18.3 %; LYMPH ABS # 2.14 K/uL (1.2-3.4); MEAN CELL VOLUME 93.8 fL (80-100); MEAN CORPUSCULAR HEMOGLOBIN 31.4 pg (25-34); MEAN CORPUSCULAR HGB CONC 33.4 g/dl (32-36); MEAN PLATELET VOLUME 9.4 fL (7.4-10.4); MONO % 8.3 %; NEUT % 69.3 %; PLATELET COUNT 421 K/uL (130-400); WHITE BLOOD COUNT 11.67 K/uL (4.8-10.8)
[2017-03-16] MEDS ORDERED: FLVHFA44 INH (11:32)
[2017-03-16 11:35] LABS: PARTIAL THROMBOPLASTIN RATIO 1.2; PROTHROMBIN TIME (PATIENT) 10.6 SECONDS (9.0-12.0)
[2017-03-16 11:42] LABS: ALT/SGPT 22 U/L (12-78); AST/SGOT 8 U/L (15-37); BLOOD UREA NITROGEN 9 mg/dl (7-18); BUN/CREATININE RATIO 11.3 (10-20); CALCIUM 8.6 mg/dl (8.5-10.1); CARBON DIOXIDE 26 mmol/L (21-32); CHLORIDE 106 mmol/L (98-107); CREATININE 0.76 mg/dl (0.60-1.20); GLUCOSE 118 mg/dl (70-99); POTASSIUM 3.6 mmol/L (3.5-5.1); SODIUM 140 mmol/L (136-145)
[2017-03-16 11:46] LABS: ALB/GLOB RATIO 0.7 (0.9-2); ALKALINE PHOSPHATASE 146 U/L (45-117)
[2017-03-16] MEDS ORDERED: DOXYCYCLINE HYCLATE 100 MG CAP PO ONE (12:00)
[2017-03-16 12:02] VITALS: O2SAT 93
[2017-03-16] MEDS ORDERED: PRED20TA PO (12:28)
[2017-03-16] MEDS ORDERED: DOXY100C PO (12:28)
[2017-03-16] MEDS ORDERED: VNTHFA/IN INH (12:28)
[2017-03-16 12:43] VITALS: BP 130/70; PULSE 85; O2SAT 99
--- NOTE | 2017-03-16 13:58 | EMERGENCY ROOM VISIT NOTE ---
History Report prepared by Jo-Ann: Thom Brown Under the Supervision of: Dr. Doug Quinteros M.D. First contact with patient: 10:27 Chief Complaint: SHORTNESS OF BREATH Stated Complaint: SOB,TROUBLE BREATHING History of Present Illness The patient is a 66 year old female who presents to the Emergency Room with complaints of persistent shortness of breath for the past 1.5 weeks. The patient also complains of a productive cough, headache and chest tightness. She feels warm but is not sure if she is febrile. The patient has a history of COPD and emphysema. She also has a history of pneumonia. The patient was on antibiotics and steroids last month. She notes that her symptoms worsened when she finished the medications. The patient is on Spiriva and Singulair. She does not have an albuterol inhaler. She was immunized for influenza this year. The patient had a stress test last week which was normal. She has a history of CABG and stent placement. The patient follows up with the [facility] group. Source of History: patient Onset: 1.5 weeks ago Position: other (respiratory) Quality: other (short of breath) Timing: other (persistent) Associated Symptoms: + cough, + fevers (subjective), + headache Review of Systems See HPI for pertinent positives & negatives. A total of 10 systems reviewed and were otherwise negative. Past Medical & Surgical Medical Problems: (1) Williamson's esophagus (2) Coronary artery disease (3) GERD (gastroesophageal reflux disease) (4) Hematemesis (5) HTN (hypertension) (6) Hypertension Surgical Problems: (1) H/O cardiac catheterization (2) H/O percutaneous transluminal coronary angioplasty (3) S/P CABG (coronary artery bypass graft) (4) Stented coronary artery Family History Cancer Heart disease Social History Smoking Status: Current Every Day Smoker Marital Status: Occupation Status: disabled Current/Historical Medications Scheduled Albuterol Hfa (Ventolin Hfa), 3 PUFFS INH Q4 Aspirin (Aspirin Chewable), 81 MG PO QAM Budesonide/Formoterol Fumarate (Symbicort 80/4.5 Inhaler), 2 PUFFS INH BID Clopidogrel (Plavix), 75 MG PO QAM Cyanocobalamin (Vitamin Deficiency Inject), Unknown Dose IM MONTHLY Doxycycline Hyclate (Vibramycin), 100 MG PO BID Fluticasone Propionate (Nasal) (Flonase Allergy Relief), 2 SPRAYS MARTINEZ QAM Gabapentin (Neurontin), 300 MG PO AM/NOON Gabapentin (Neurontin), 600 MG PO HS Loratadine (Claritin), 10 MG PO QAM Metoprolol Succ (Toprol Xl) (Toprol-Xl ), 100 MG PO QAM Montelukast Sodium (Singulair), 10 MG PO QAM Nitroglycerin (Nitrostat), 0.4 MG UT PRN Omeprazole (Prilosec), 40 MG PO QAM Oxygen (Oxygen), 2 LITERS NA HS & PRN Prednisone (Prednisone), 0 PO DAILY Ranitidine (Zantac), 300 MG PO HS Simvastatin (Zocor), 80 MG PO QAM Tiotropium [place] (Spiriva Handihaler), 1 CAP INH QAM [Ferrous Sulfate], 150 MG PO QAM Scheduled PRN Albuterol Sulfate (Proair Respiclick), 2 PUFFS INH Q4H PRN for SOB/Wheezing Hydrocodone/Acetaminophen 5MG/325MG ([place] 5MG/325MG), 1-2 TABLETS PO q4-6 Hours PRN for Pain Allergies Coded Allergies: No Known Allergies (Verified , 03/16/17) Physical Exam Vital Signs Date Time Temp Pulse Resp B/P Pulse Ox O2 Delivery O2 Flow Rate FiO2 03/16/17 12:43 85 20 130/70 99 Nasal Cannula 3.0 03/16/17 12:03 Nasal Cannula 2.0 03/16/17 12:02 93 Room Air 03/16/17 11:58 89 20 134/78 93 03/16/17 11:31 142/66 03/16/17 10:21 36.6 93 18 131/73 Room Air Physical Exam GENERAL: Patient is in no acute distress. HEENT: No acute trauma, normocephalic atraumatic, mucous membranes moist, no nasal congestion, no scleral icterus. NECK: No stridor, no adenopathy, no meningismus, trachea is midline. LUNGS: Lung wheezing and rhonchi bilaterally, dry cough noted, breath sounds are equal, no respiratory distress. HEART: Without murmurs gallops or rubs, regular rate and rhythm. ABDOMEN: Soft, nontender, bowel sounds positive, no hernias, no peritonitis. EXTREMITIES: Mild bilateral pedal edema. No cyanosis, full range of motion of all the joints without pain or difficulty, no signs for acute trauma. NEUROLOGIC: Oriented x 3, no acute motor or sensory deficits, no focal weakness. SKIN: No rash, no jaundice, no diaphoresis. Medical Decision & Procedures ER Provider Diagnostic Interpretation: X-ray results as stated below per interpretation by me and the radiologist: SINGLE VIEW CHEST CLINICAL HISTORY: Dyspnea. FINDINGS: An AP, portable, upright chest radiograph is compared to study dated 01/15/2017. The examination is degraded by portable technique, large body habitus, and patient rotation. The patient is status post midline sternotomy. The heart is top normal for projection and there is atherosclerotic calcification of the thoracic aorta. The pulmonary vasculature is noncongested. Chronic interstitial thickening is unchanged. Scarring in the right lower lung is similar to previous. No airspace consolidation is identified typical for pneumonia. Small pleural effusions are suspected. No pneumothorax is seen. The skeletal structures are osteopenic. The bony thorax is grossly intact. Cholecystectomy clips are identified in the right upper quadrant. IMPRESSION: 1.There is no airspace consolidation typical for pneumonia. 2. Small pleural effusions. Electronically signed by: Doug Figueredo M.D. 03/16/2017 10:53 AM Dictated Date/Time: 03/16/2017 10:51 AM Laboratory Results 03/16/17 10:55 Red Blood Count 3.70, Mean Corpuscular Volume 93.8, Mean Corpuscular Hemoglobin 31.4, Mean Corpuscular Hemoglobin Concent 33.4, Mean Platelet Volume 9.4, Neutrophils (%) (Auto) 69.3, Lymphocytes (%) (Auto) 18.3, Monocytes (%) (Auto) 8.3, Eosinophils (%) (Auto) 3.3, Basophils (%) (Auto) 0.2, Neutrophils # (Auto) 8.08, Lymphocytes # (Auto) 2.14, Monocytes # (Auto) 0.97, Eosinophils # (Auto) 0.39, Basophils # (Auto) 0.02 03/16/17 10:55 Test 03/16/17 10:55 03/16/17 11:20 White Blood Count 11.67 K/uL (4.8-10.8) Red Blood Count 3.70 M/uL (4.2-5.4) Hemoglobin 11.6 g/dL (12.0-16.0) Hematocrit 34.7 % (37-47) Mean Corpuscular Volume 93.8 fL (80-100) Mean Corpuscular Hemoglobin 31.4 pg (25-34) Mean Corpuscular Hemoglobin Concent 33.4 g/dl (32-36) Platelet Count 421 K/uL (130-400) Mean Platelet Volume 9.4 fL (7.4-10.4) Neutrophils (%) (Auto) 69.3 % Lymphocytes (%) (Auto) 18.3 % Monocytes (%) (Auto) 8.3 % Eosinophils (%) (Auto) 3.3 % Basophils (%) (Auto) 0.2 % Neutrophils # (Auto) 8.08 K/uL (1.4-6.5) Lymphocytes # (Auto) 2.14 K/uL (1.2-3.4) Monocytes # (Auto) 0.97 K/uL (0.11-0.59) Eosinophils # (Auto) 0.39 K/uL (0-0.5) Basophils # (Auto) 0.02 K/uL (0-0.2) RDW Standard Deviation 50.2 fL (36.4-46.3) RDW Coefficient of Variation 14.6 % (11.5-14.5) Immature Granulocyte % (Auto) 0.6 % Immature Granulocyte # (Auto) 0.07 K/uL (0.00-0.02) Prothrombin Time 10.6 SECONDS (9.0-12.0) Prothromb Time International Ratio 1.0 (0.9-1.1) Activated Partial Thromboplast Time 32.4 SECONDS (21.0-31.0) Partial Thromboplastin Ratio 1.2 Anion Gap 8.0 mmol/L (3-11) Est Creatinine Clear Calc Drug Dose 83.7 ml/min Estimated GFR () 94.7 Estimated GFR (Non- 81.7 BUN/Creatinine Ratio 11.3 (10-20) Calcium Level 8.6 mg/dl (8.5-10.1) Total Bilirubin 0.3 mg/dl (0.2-1) Aspartate Amino Transf (AST/SGOT) 8 U/L (15-37) Alanine Aminotransferase (ALT/SGPT) 22 U/L (12-78) Alkaline Phosphatase 146 U/L (45-117) Troponin I < 0.015 ng/ml (0-0.045) Total Protein 6.9 gm/dl (6.4-8.2) Albumin 2.9 gm/dl (3.4-5.0) Globulin 4.0 gm/dl (2.5-4.0) Albumin/Globulin Ratio 0.7 (0.9-2) Influenza Type A Antigen Neg for Influ A (NEG) Influenza Type B Antigen Neg for Influ B (NEG) Laboratory results reviewed by me. Medications Administered Medications (Trade) Dose Ordered Sig/Sj Route Start Time Stop Time Status Last Admin Dose Admin Sodium Chloride (Nss 1000ml) 1,000 ml @ 200 mls/hr Q5H STAT IV 03/16/17 10:31 03/16/17 13:01 DC 03/16/17 11:01 200 MLS/HR Methylprednisolone Sodium Succinate (Solu-Medrol IV) 125 mg NOW STAT IV 03/16/17 10:31 03/16/17 10:37 DC 03/16/17 11:02 125 MG Albuterol/ Ipratropium (Duoneb) 3 ml NOW STAT INH 03/16/17 10:31 03/16/17 10:37 DC 03/16/17 11:01 3 ML Acetaminophen (Tylenol Tab) 1,000 mg NOW STAT PO 03/16/17 10:39 03/16/17 10:40 DC 03/16/17 11:02 1,000 MG Doxycycline Hyclate (Vibramycin Cap) 100 mg ONE ONCE PO 03/16/17 12:00 03/16/17 12:16 DC 03/16/17 11:55 100 MG ECG Indication: SOB/dyspnea Rate (beats per minute): 83 Rhythm: normal sinus Findings: T-wave inversion (Anterior), no ectopy Comparison ECG Date: 03 June 2016 Change: no significant change ED Course 1030: The patient was evaluated in room B5. A complete history and physical exam was performed. 1031: DuoNeb 3 ml INH, Solu-Medrol 125 mg IV, NSS 1000 ml @ 200 mls/hr. 1039: Tylenol 1000 mg PO. 1200: Doxycycline Hyclate 100 mg PO. 1217: Reassessed the patient. She was feeling better after the DuoNeb treatment. Discussed results and discharge instructions: She verbalized understanding and agreement. The patient is ready for discharge. Medical Decision Differential diagnosis includes pneumonia, bronchitis, exacerbation of COPD, CHF , cardiac ischemia, influenza. There is a mild leukocytosis which could be consistent with infection. No worrisome anemia. No significant electrolyte abnormality, kidney failure or hepatitis. Influenza testing was negative. Chest film shows no pneumonia, pneumothorax or CHF. EKG shows a sinus rhythm, no acute ischemia. Cardiac enzyme testing times one is not consistent with acute cardiac injury. The patient received IV saline, she received a DuoNeb. She was given oral Tylenol and oral doxycycline. She was given a dose of IV Solu-Medrol. The patient feels improved since the nebulizer treatment. She is not hypoxic or toxic. She likely has an acute bronchitis with an exacerbation of COPD. Given her COPD history, I do think antibiotics are indicated. She will be discharged on doxycycline, a prednisone taper, frequent albuterol use. Of note , she had no albuterol inhaler to use at home for rescue purposes. The patient was encouraged to follow with her doctor this week. She was encouraged to return here for worsening symptoms or if not improving. Impression Primary Impression: Acute bronchitis Additional Impression: COPD exacerbation Scribe Attestation The scribe's documentation has been prepared under my direction and personally reviewed by me in its entirety. I confirm that the note above accurately reflects all work, treatment, procedures, and medical decision making performed by me. Departure Information Dispostion Home / Self-Care Prescriptions Prednisone (Prednisone) 20 Mg Tab 0 PO DAILY, #18 TAB 3 DAILY FOR 3 DAYS, THEN 2 DAILY FOR 3 DAYS, THEN 1 DAILY FOR 3 DAYS. Prov: Doug Quinteros M.D. 03/16/17 Doxycycline Hyclate (VIBRAMYCIN) 100 Mg Cap 100 MG PO BID for 10 Days, #20 CAP Prov: Doug Quinteros M.D. 03/16/17 Albuterol Hfa (VENTOLIN HFA) 200 Puffs/85554 Mcg Aers 3 PUFFS INH Q4, #1 INHA Prov: Doug Quinteros M.D. 03/16/17 Referrals Juliane Oconnor D.OMauricio (PCP) Forms HOME CARE DOCUMENTATION FORM, IMPORTANT VISIT INFORMATION Patient Instructions My [facility] Additional Instructions albuterol inhaler 3 puffs every 4 hours all other inhaler use to stay the same prednisone as directed doxycycline 2x per day for 10 days return if worsening see april garcia this week for a recheck and possible nebulizer or oxygen use Problem Qualifiers
[2017-03-27] MEDS ORDERED: PRED10TA PO (12:20)
[2017-03-27] MEDS ORDERED: LVQ500 PO (12:20)
[2017-03-27] MEDS ORDERED: NCDT21 TD (12:20)
[2017-04-09] MEDS ORDERED: FERR1TAB23 PO (09:24)
[2017-04-09] MEDS ORDERED: PRED10TA PO (09:24)
[2017-04-09] MEDS ORDERED: FLUO20CA20 PO (09:24)
[2017-04-09] MEDS ORDERED: TRAZ100T29 PO (09:24)
[2017-04-09] MEDS ORDERED: OMEP40CA41 PO (09:27)
[2017-10-05] MEDS ORDERED: HYDR-3419 PO (11:57)
[2017-10-05] MEDS ORDERED: ANTIBIO (12:15)
[2017-10-05] MEDS ORDERED: PRED-301 PO (12:17)
[2017-10-05] MEDS ORDERED: ANTIBIOTIC PO (12:17)
[2017-10-30] MEDS ORDERED: PREG1CAP70 PO (06:31)
[2017-10-30] MEDS ORDERED: METO-157 PO (06:31)
[2017-10-30] MEDS ORDERED: DULO60CA44 PO (06:31)
[2017-10-30] MEDS ORDERED: LORA10CA2 PO (06:31)
[2017-10-31] MEDS ORDERED: RXC5 PO (07:44)
== END 2017-03-16 12:45 | disposition home or self-care (01) ==
LOC: C.EDB 10:21
DX: J20.9 Acute bronchitis, unspecified (principal); J44.1 Chronic obstructive pulmonary disease with (acute) exacerbation; Z87.01 Personal history of pneumonia (recurrent); K22.70 Barrett's esophagus without dysplasia; I25.10 Atherosclerotic heart disease of native coronary artery without angina pectoris; K21.9 Gastro-esophageal reflux disease without esophagitis; I10 Essential (primary) hypertension; Z95.1 Presence of aortocoronary bypass graft; Z80.9 Family history of malignant neoplasm, unspecified; Z82.49 Family history of ischemic heart disease and other diseases of the circulatory system; F17.210 Nicotine dependence, cigarettes, uncomplicated; Z79.82 Long term (current) use of aspirin; Z79.02 Long term (current) use of antithrombotics/antiplatelets; Z79.899 Other long term (current) drug therapy

== ENCOUNTER 2017-03-23 14:31 | Inpatient (IN) | payer OTHER ==
[~2017-03-23] VITALS: Ht 165.1 cm; Wt 96.9 kg
[~2017-03-23 14:31] MED LIST changes: +ALBU18002 INH; -ALBU1AER9 INH; +DOXY100C PO; -FLUO40CA8 PO; -FLUT0.0529 NAE; +FLUT0.15 NAE; -FLUT110A INH; -LXT PO; -PARO30TA4 PO; +PRED20TA PO; +SPRIN/30 INH; -TIOTCAP INH; +VNTHFA/IN INH
[2017-03-23] MEDS ORDERED: ALBUT/IPRATROP 3MG/0.5MG NEB 3 ML VIAL INH STA (16:24)
[2017-03-23] MEDS ORDERED: PIPERACILLIN/TAZOBACTAM 4.5 GM/100ML D5W IV STA (16:44)
--- NOTE | 2017-03-23 16:44 | DIAGNOSTIC IMAGING REPORT ---
SINGLE VIEW CHEST CLINICAL HISTORY: Dyspnea. FINDINGS: An AP, portable, upright chest radiograph is compared to study dated 03/16/2017. The examination is degraded by portable technique, large body habitus, and patient rotation. The patient is status post midline sternotomy. The heart is top normal for projection and there is atherosclerotic calcification of the thoracic aorta. The pulmonary vasculature is noncongested. Chronic interstitial thickening is unchanged. Scarring in the right lower lung is similar to previous. No airspace consolidation is identified typical for pneumonia. Small pleural effusions are suspected. No pneumothorax is seen. The skeletal structures are osteopenic. The bony thorax is grossly intact. Cholecystectomy clips are identified in the right upper quadrant. IMPRESSION: 1.There is no airspace consolidation typical for pneumonia and there has been no significant change from 03/16/2017. 2. Small pleural effusions are again noted. Electronically signed by: Doug Figueredo M.D. 03/23/2017 4:42 PM Dictated Date/Time: 03/23/2017 4:41 PM
[2017-03-23 16:54] LABS: BASO % 0.2 %; BASO ABS # 0.04 K/uL (0-0.2); COMPLETE YES; EOS % 0.1 %; HEMATOCRIT 37.5 % (37-47); IG% 2.7 %; LYMPH % 12.5 %; LYMPH ABS # 2.33 K/uL (1.2-3.4); MEAN CELL VOLUME 94.9 fL (80-100); MEAN CORPUSCULAR HEMOGLOBIN 30.9 pg (25-34); MEAN CORPUSCULAR HGB CONC 32.5 g/dl (32-36); MEAN PLATELET VOLUME 9.2 fL (7.4-10.4); MONO % 5.9 %; NEUT % 78.6 %; PLATELET COUNT 544 K/uL (130-400); RED BLOOD COUNT 3.95 M/uL (4.2-5.4); WHITE BLOOD COUNT 18.66 K/uL (4.8-10.8)
[2017-03-23 17:02] LABS: PROTHROMBIN TIME (PATIENT) 10.8 SECONDS (9.0-12.0)
[2017-03-23] MEDS ORDERED: TRAZ50TA35 PO (17:04)
--- NOTE | 2017-03-23 17:04 | EMERGENCY ROOM VISIT NOTE ---
History Report prepared by Jo-Ann: Kibmerly Hogue Under the Supervision of: Dr. Doug Quinteros M.D. First contact with patient: 16:18 Chief Complaint: SHORTNESS OF BREATH Stated Complaint: FLUID IN LUNGS Nursing Triage Summary: Pt reports "fluid in her lungs" SOB x1 week PCP told pt to come to ED History of Present Illness The patient is a 66 year old female who presents to the Emergency Room with complaints of worsening shortness of breath that started 1 week ago. The shortness of breath is worse with exertion. The patient has been using a nebulizer at home, as well as oxygen PRN and inhalers but nothing has offered her any relief. The patient's last dose of albuterol was this morning. She is also experiencing intermittent bilateral lower extremity edema. The patient was seen in the ED for similar symptoms last week. She was diagnosed with bronchitis and discharged home. The patient was also started on doxycycline and a prednisone taper. She states that she is supposed to finish the prednisone taper on Thursday. The patient is also experiencing a productive cough that is about the same as it was when she was seen in the ED last week. She saw her PCP today for a follow-up from her ED visit. Per nursing staff, the patient's PCP heard rales in the patient's lungs. The patient denies any history of fluid build-up and she denies recent increased fluid intake. The patient's daughter states that the patient has history of a LA with a double bypass and a stent. Source of History: patient, nursing staff Onset: 1 week ago Position: chest Quality: other (shortness of breath) Timing: worsening Modifying Factors (Relieving): other (None) Associated Symptoms: + cough (productive) Note: intermittent bilateral lower extremity edema Review of Systems See HPI for pertinent positives & negatives. A total of 10 systems reviewed and were otherwise negative. Past Medical & Surgical Medical Problems: (1) Williamson's esophagus (2) Coronary artery disease (3) GERD (gastroesophageal reflux disease) (4) Hematemesis (5) HTN (hypertension) (6) Hypertension (7) Shortness of breath Surgical Problems: (1) H/O cardiac catheterization (2) H/O percutaneous transluminal coronary angioplasty (3) S/P CABG (coronary artery bypass graft) (4) Stented coronary artery Family History Cancer Heart disease Social History Smoking Status: Current Every Day Smoker Marital Status: Occupation Status: disabled Current/Historical Medications Scheduled Aspirin (Aspirin Chewable), 81 MG PO QAM Atorvastatin Calcium (Lipitor), 1 TAB PO DAILY Budesonide/Formoterol Fumarate (Symbicort 80/4.5 Inhaler), 2 PUFFS INH BID Clopidogrel (Plavix), 75 MG PO QAM Fluticasone Propionate (Inhala (Flovent Diskus), 2 PUFFS INH BID Gabapentin (Neurontin), 300 MG PO AM/NOON Gabapentin (Neurontin), 600 MG PO HS Isosorbide Mononitrate Ext Rel (Imdur Ext Rel), 1 TAB PO DAILY Lisinopril (Prinivil), 5 MG PO DAILY Metoclopramide (Reglan), 5 MG PO TIDM Metoprolol Succinate (Toprol Xl), 25 MG PO DAILY Montelukast Sodium (Singulair), 10 MG PO QAM Nitroglycerin (Nitrostat), 0.4 MG UT PRN Omeprazole (Prilosec), 40 MG PO QAM Oxygen (Oxygen), 2 LITERS NA HS & PRN Ranitidine (Zantac), 300 MG PO HS Tiotropium [place] (Spiriva Handihaler), 1 CAP INH QAM Trazodone Hcl (Trazodone), 50 MG PO HS Scheduled PRN Albuterol Sulfate (Proair Respiclick), 2 PUFFS INH Q4H PRN for SOB/Wheezing Hydrocodone/Acetaminophen 5MG/325MG ([place] 5MG/325MG), 1-2 TABLETS PO q4-6 Hours PRN for Pain Ipratropium-Albuterol (Duoneb), 1 TREATMENT INH Q4H PRN for SOB/Wheezing Allergies Coded Allergies: No Known Allergies (Verified , 03/23/17) Physical Exam Vital Signs Date Time Temp Pulse Resp B/P Pulse Ox O2 Delivery O2 Flow Rate FiO2 03/23/17 18:00 74 18 149/71 94 03/23/17 17:30 72 18 131/68 93 03/23/17 17:00 72 18 147/62 95 Room Air 03/23/17 17:00 97 Room Air 03/23/17 17:00 97 Room Air 03/23/17 16:30 64 18 152/89 95 Room Air 03/23/17 16:09 70 26 170/77 97 Room Air 03/23/17 14:36 36.5 84 20 142/71 92 Room Air Physical Exam GENERAL: Patient is in no acute distress. HEENT: No acute trauma, normocephalic atraumatic, mucous membranes moist, no nasal congestion, no scleral icterus. NECK: No stridor, no adenopathy, no meningismus, trachea is midline. LUNGS: Bilateral wheezing, some diminished breath sounds bilaterally, breath sounds equal, crackles in right base. HEART: Without murmurs gallops or rubs, regular rate and rhythm. ABDOMEN: Soft, nontender, bowel sounds positive, no hernias, no peritonitis. EXTREMITIES: No cyanosis or edema, full range of motion of all the joints without pain or difficulty, no signs for acute trauma. NEUROLOGIC: Oriented x 3, no acute motor or sensory deficits, no focal weakness. SKIN: No rash, no jaundice, no diaphoresis. Medical Decision & Procedures ER Provider Diagnostic Interpretation: X-ray results as stated below per interpretation by me and the radiologist: SINGLE VIEW CHEST IMPRESSION: 1.There is no airspace consolidation typical for pneumonia and there has been no significant change from 03/16/2017. 2. Small pleural effusions are again noted. Electronically signed by: Doug Figueredo M.D. 03/23/2017 4:42 PM Dictated Date/Time: 03/23/2017 4:41 PM Laboratory Results 03/23/17 16:38 Red Blood Count 3.95, Mean Corpuscular Volume 94.9, Mean Corpuscular Hemoglobin 30.9, Mean Corpuscular Hemoglobin Concent 32.5, Mean Platelet Volume 9.2, Neutrophils (%) (Auto) 78.6, Lymphocytes (%) (Auto) 12.5, Monocytes (%) (Auto) 5.9, Eosinophils (%) (Auto) 0.1, Basophils (%) (Auto) 0.2, Neutrophils # (Auto) 14.66, Lymphocytes # (Auto) 2.33, Monocytes # (Auto) 1.11, Eosinophils # (Auto) 0.02, Basophils # (Auto) 0.04 03/23/17 16:38 Test 03/23/17 16:38 03/23/17 16:53 White Blood Count 18.66 K/uL (4.8-10.8) Red Blood Count 3.95 M/uL (4.2-5.4) Hemoglobin 12.2 g/dL (12.0-16.0) Hematocrit 37.5 % (37-47) Mean Corpuscular Volume 94.9 fL (80-100) Mean Corpuscular Hemoglobin 30.9 pg (25-34) Mean Corpuscular Hemoglobin Concent 32.5 g/dl (32-36) Platelet Count 544 K/uL (130-400) Mean Platelet Volume 9.2 fL (7.4-10.4) Neutrophils (%) (Auto) 78.6 % Lymphocytes (%) (Auto) 12.5 % Monocytes (%) (Auto) 5.9 % Eosinophils (%) (Auto) 0.1 % Basophils (%) (Auto) 0.2 % Neutrophils # (Auto) 14.66 K/uL (1.4-6.5) Lymphocytes # (Auto) 2.33 K/uL (1.2-3.4) Monocytes # (Auto) 1.11 K/uL (0.11-0.59) Eosinophils # (Auto) 0.02 K/uL (0-0.5) Basophils # (Auto) 0.04 K/uL (0-0.2) RDW Standard Deviation 51.7 fL (36.4-46.3) RDW Coefficient of Variation 14.8 % (11.5-14.5) Immature Granulocyte % (Auto) 2.7 % Immature Granulocyte # (Auto) 0.50 K/uL (0.00-0.02) Prothrombin Time 10.8 SECONDS (9.0-12.0) Prothromb Time International Ratio 1.0 (0.9-1.1) Activated Partial Thromboplast Time 25.6 SECONDS (21.0-31.0) Partial Thromboplastin Ratio 1.0 Anion Gap 6.0 mmol/L (3-11) Est Creatinine Clear Calc Drug Dose 75.0 ml/min Estimated GFR () 82.8 Estimated GFR (Non- 71.4 BUN/Creatinine Ratio 21.7 (10-20) Calcium Level 9.2 mg/dl (8.5-10.1) Total Bilirubin 0.3 mg/dl (0.2-1) Alanine Aminotransferase (ALT/SGPT) 27 U/L (12-78) Alkaline Phosphatase 111 U/L (45-117) Troponin I < 0.015 ng/ml (0-0.045) Pro-B-Type Natriuretic Peptide 317 pg/ml (0-900) Total Protein 6.4 gm/dl (6.4-8.2) Albumin 3.2 gm/dl (3.4-5.0) Globulin 3.2 gm/dl (2.5-4.0) Albumin/Globulin Ratio 1.0 (0.9-2) Influenza Type A (RT-PCR) Neg for Influ A (NEG) Influenza Type B (RT-PCR) Neg for Influ B (NEG) Laboratory results reviewed by me. Medications Administered Medications (Trade) Dose Ordered Sig/Sj Route Start Time Stop Time Status Last Admin Dose Admin Albuterol/ Ipratropium (Duoneb) 3 ml NOW STAT INH 03/23/17 16:24 03/23/17 16:26 DC 03/23/17 16:59 3 ML Piperacillin Sod/ Tazobactam Sod (Zosyn Iv) 4.5 gm NOW STAT IV 03/23/17 16:44 03/23/17 16:45 DC 03/23/17 18:17 4.5 GM ECG Indication: SOB/dyspnea Rate (beats per minute): 68 Rhythm: normal sinus Findings: T-wave inversion (Anterior), no acute ischemic change, no ectopy Comparison ECG Date: 03/16/2017 ED Course 1620: The patient was evaluated in room C9. A complete history and physical exam was performed. 1624: Ordered DuoNeb 3 ml INH 1644: Ordered Zosyn 4.5 gm IV 1810: Discussed the patient's case with Dr. Bong Vasquez. The patient will be evaluated for further management. 1811: Upon reexamination the patient is resting comfortably. I discussed results and treatment plan with the patient. She verbalizes agreement and understanding. The patient will be evaluated for further management. Medical Decision Differential diagnoses considered include bronchitis or pneumonia, CHF, cardiac ischemia, influenza, fluid overload, electrolyte imbalance, failed outpatient treatment. There is a moderate leukocytosis which could be consistent with infection or possibly, consistent with her recent steroid use. No concerning anemia. No significant electrolyte abnormality, kidney failure or hepatitis. There was no coagulopathy. Influenza testing was negative. Blood cultures are pending. EKG shows a sinus rhythm. No acute ischemia. Chest x-ray does not show any acute CHF, no obvious pneumonia, no pneumothorax. Cardiac enzyme testing times one is not consistent with acute cardiac injury. BNP was not elevated making CHF less likely. The patient has crackles at her right base. I do think she is an early pneumonia in this area, this would fit with her presentation. She did receive IV Zosyn. She was given a DuoNeb. Admission/observation is warranted. She has been on antibiotics and steroids and is worsening. Her family doctor sent her in today since her condition was not improving. She is feeling quite short of breath. I do think a hospital stay is warranted. I spoke to the patient and to case management. The on-call hospitalist was consulted. Consults Time Called: 1808 Consulting Physician: Dr. Bong Vasquez Returned Call: 1809 Discussed the patient's case with Dr. Bong Vasquez. The patient will be evaluated for further management. Impression Primary Impression: Pneumonia Additional Impressions: Shortness of breath Failure of outpatient treatment Scribe Attestation The scribe's documentation has been prepared under my direction and personally reviewed by me in its entirety. I confirm that the note above accurately reflects all work, treatment, procedures, and medical decision making performed by me. Departure Information Dispostion Being Evaluated By Hospitalist Referrals No Doctor, Assigned (PCP) Patient Instructions My [facility] Problem Qualifiers Primary Impression: Pneumonia Pneumonia type: due to unspecified organism Laterality: unspecified laterality Lung location: unspecified part of lung Qualified Codes: J18.9 - Pneumonia, unspecified organism
[2017-03-23 18:02] LABS: ALKALINE PHOSPHATASE 111 U/L (45-117); ALT/SGPT 27 U/L (12-78); BLOOD UREA NITROGEN 18 mg/dl (7-18); BUN/CREATININE RATIO 21.7 (10-20); CALCIUM 9.2 mg/dl (8.5-10.1); CARBON DIOXIDE 31 mmol/L (21-32); CHLORIDE 105 mmol/L (98-107); CREATININE 0.85 mg/dl (0.60-1.20); GLUCOSE 124 mg/dl (70-99); SODIUM 142 mmol/L (136-145)
[2017-03-23 19:16] LABS: INFLUENZA A PCR Neg for Influ A (NEG); INFLUENZA B PCR Neg for Influ B (NEG)
[2017-03-23] MEDS ORDERED: ONDANSETRON INJ 2 MG/ML 2 ML VIAL IV PRN (19:30)
[2017-03-23] MEDS ORDERED: ACETAMINOPHEN 325 MG TAB PO PRN (19:30)
[2017-03-23 19:42] LABS: MAGNESIUM 2.3 mg/dl (1.8-2.4)
[2017-03-23] MEDS ORDERED: ATOR80TA PO (19:45)
[2017-03-23] MEDS ORDERED: METO-478 PO (19:45)
[2017-03-23] MEDS ORDERED: IPRASOL4 INH (19:45)
[2017-03-23] MEDS ORDERED: FLUT1AER5 INH (19:45)
[2017-03-23] MEDS ORDERED: ISOS30TA3 PO (19:45)
[2017-03-23] MEDS ORDERED: LISI-729 PO (20:08)
[2017-03-23] MEDS ORDERED: METO-157 PO (20:08)
[2017-03-23] MEDS: ALBUT/IPRATROP 3MG/0.5MG NEB 3 ML VIAL INH SCH (21:00)
[2017-03-23 21:01] VITALS: PULSE 64; O2SAT 96
[2017-03-23 21:16] VITALS: BP 133/77; PULSE 74; TEMP 36.7; O2SAT 97; Ht 165.1 cm; Wt 96.9 kg
[2017-03-23] MEDS ORDERED: FLUT0.15 (21:17)
[2017-03-23] MEDS: RANITIDINE HCL 150 MG TAB PO SCH (21:54)
[2017-03-23] MEDS: GABAPENTIN 600 MG TAB PO SCH (21:55)
[2017-03-23] MEDS: TRAZODONE HCL 50 MG TAB PO SCH (21:55)
[2017-03-23] MEDS: METHYLPREDNISOLONE IV 40 MG in SYRINGE 0 ML IV SCH (21:56)
[2017-03-23] MEDS: NICOTINE 21 MG/24 HR TDSY TD SCH (21:56)
[2017-03-23] MEDS: LEVOFLOXACIN / D5W 500 MG in PREMIXED IN D5W 100 ML IV SCH (21:56)
[2017-03-23] MEDS: ENOXAPARIN 40 MG/0.4 ML SYR SQ SCH (21:56)
--- NOTE | 2017-03-23 22:19 | History and Physical ---
History & Physical Date & Time of Service: Mar 23, 2017 at 21:56 Chief Complaint: Shortness Of Breath Primary Care Physician: Juliane Oconnor D.O. History of Present Illness 66 year old female who presents to the ER with shortness of breath. Patient was seen in the ER on 03/16 for similar symptoms and was given doxycycline and prednisone taper. Patient reports continued symptoms despite the use of these medicines. She reports shortness of breath with minimal exertion. She has had a cough productive for yellow and green sputum. She reports hot flashes and chills at times which are chronic. She did not take her temperature at home. She denies chest pain, pressure, or palpitations. She denies abdominal pain, nausea, or vomiting. She reports diarrhea since starting the doxycycline. She denies urinary symptoms. In the ER, patient is saturating well on room air. She was given neb and IV Zosyn. Past Medical/Surgical History Medical Problems: (1) Williamson's esophagus Status: Chronic (2) CKD (chronic kidney disease), stage III Status: Chronic (3) COPD (chronic obstructive pulmonary disease) Status: Chronic (4) Coronary artery disease Permanent Comment: 2010 - CABG x 2 2015 - left cx stent Status: Chronic (5) DDD (degenerative disc disease) Status: Chronic (6) Gastroparesis Status: Chronic (7) GERD (gastroesophageal reflux disease) Status: Chronic (8) HTN (hypertension) Status: Chronic (9) HTN (hypertension) Status: Chronic (10) TIA (transient ischemic attack) Status: Chronic Surgical Problems: (1) H/O left knee surgery Status: Chronic (2) H/O shoulder surgery Status: Chronic (3) History of carpal tunnel surgery Status: Chronic (4) History of hysterectomy Status: Chronic (5) History of Lauren fundoplication Status: Chronic (6) Hx of cholecystectomy Status: Chronic (7) Hx of tonsillectomy Status: Chronic (8) S/P right knee arthroscopy Status: Chronic (9) Status post total hip replacement, left Status: Chronic Family History FH: breast cancer MOTHER Heart disease FATHER Social History Smoking Status: Current Every Day Smoker Alcohol Use: none Immunizations History of Influenza Vaccine: Yes Influenza Vaccine Date: Sep 19, 2016 History of Tetanus Vaccine?: Yes Tetanus Immunization Date: May 20, 2016 History of Pneumococcal: Yes Pneumococcal Date: Jan 02, 2017 Multi-Drug Resistant Organisms History of MDRO: No Allergies Coded Allergies: No Known Allergies (Verified , 03/23/17) Home Medications Scheduled Aspirin (Aspirin Chewable), 81 MG PO QAM Atorvastatin Calcium (Lipitor), 1 TAB PO DAILY Budesonide/Formoterol Fumarate (Symbicort 80/4.5 Inhaler), 2 PUFFS INH BID Clopidogrel (Plavix), 75 MG PO QAM Fluticasone Propionate (Inhala (Flovent Diskus), 2 PUFFS INH BID Fluticasone Propionate (Nasal) (Flonase Allergy Relief), 1 SPRAY NA BID Gabapentin (Neurontin), 300 MG PO AM/NOON Gabapentin (Neurontin), 600 MG PO HS Isosorbide Mononitrate Ext Rel (Imdur Ext Rel), 1 TAB PO DAILY Lisinopril (Prinivil), 5 MG PO DAILY Metoclopramide (Reglan), 5 MG PO TIDM Metoprolol Succinate (Toprol Xl), 25 MG PO DAILY Montelukast Sodium (Singulair), 10 MG PO QAM Nitroglycerin (Nitrostat), 0.4 MG UT PRN Omeprazole (Prilosec), 40 MG PO QAM Oxygen (Oxygen), 2 LITERS NA HS & PRN Ranitidine (Zantac), 300 MG PO HS Tiotropium [place] (Spiriva Handihaler), 1 CAP INH QAM Trazodone Hcl (Trazodone), 50 MG PO HS Scheduled PRN Albuterol Sulfate (Proair Respiclick), 2 PUFFS INH Q4H PRN for SOB/Wheezing Hydrocodone/Acetaminophen 5MG/325MG ([place] 5MG/325MG), 1-2 TABLETS PO q4-6 Hours PRN for Pain Ipratropium-Albuterol (Duoneb), 1 TREATMENT INH Q4H PRN for SOB/Wheezing Review of Systems 10 point review of systems was completed with the pertinent positives and negatives noted per the HPI Physical Exam Vital Signs Date Time Temp Pulse Resp B/P Pulse Ox O2 Delivery O2 Flow Rate FiO2 03/23/17 21:16 36.7 74 18 133/77 97 Room Air 03/23/17 21:01 64 16 96 Room Air 03/23/17 18:00 74 18 149/71 94 03/23/17 17:30 72 18 131/68 93 03/23/17 17:00 72 18 147/62 95 Room Air 03/23/17 17:00 97 Room Air 03/23/17 17:00 97 Room Air 03/23/17 16:30 64 18 152/89 95 Room Air 03/23/17 16:09 70 26 170/77 97 Room Air 03/23/17 14:36 36.5 84 20 142/71 92 Room Air General Appearance: no apparent distress Head: normocephalic Eyes: normal inspection ENT: hearing grossly normal Neck: supple, no JVD Respiratory/Chest: no respiratory distress, + decreased breath sounds (mild), + crackles (faint, BL bases) Cardiovascular: regular rate, rhythm, no edema, normal peripheral pulses Abdomen/GI: normal bowel sounds, non tender, soft Extremities/Musculoskelatal: normal inspection, no calf tenderness Neurologic/Psych: no motor/sensory deficits, alert, normal mood/affect, oriented x 3 Skin: normal color, warm/dry Diagnostics Laboratory Results Results Past 24 Hours Test 03/23/17 16:38 03/23/17 16:53 03/23/17 18:58 Range/Units White Blood Count 18.66 4.8-10.8 K/uL Red Blood Count 3.95 4.2-5.4 M/uL Hemoglobin 12.2 12.0-16.0 g/dL Hematocrit 37.5 37-47 % Mean Corpuscular Volume 94.9 80-100 fL Mean Corpuscular Hemoglobin 30.9 25-34 pg Mean Corpuscular Hemoglobin Concent 32.5 32-36 g/dl Platelet Count 544 130-400 K/uL Mean Platelet Volume 9.2 7.4-10.4 fL Neutrophils (%) (Auto) 78.6 % Lymphocytes (%) (Auto) 12.5 % Monocytes (%) (Auto) 5.9 % Eosinophils (%) (Auto) 0.1 % Basophils (%) (Auto) 0.2 % Neutrophils # (Auto) 14.66 1.4-6.5 K/uL Lymphocytes # (Auto) 2.33 1.2-3.4 K/uL Monocytes # (Auto) 1.11 0.11-0.59 K/uL Eosinophils # (Auto) 0.02 0-0.5 K/uL Basophils # (Auto) 0.04 0-0.2 K/uL RDW Standard Deviation 51.7 36.4-46.3 fL RDW Coefficient of Variation 14.8 11.5-14.5 % Immature Granulocyte % (Auto) 2.7 % Immature Granulocyte # (Auto) 0.50 0.00-0.02 K/uL Prothrombin Time 10.8 9.0-12.0 SECONDS Prothromb Time International Ratio 1.0 0.9-1.1 Activated Partial Thromboplast Time 25.6 21.0-31.0 SECONDS Partial Thromboplastin Ratio 1.0 Sodium Level 142 136-145 mmol/L Potassium Level 4.0 3.5-5.1 mmol/L Chloride Level 105 98-107 mmol/L Carbon Dioxide Level 31 21-32 mmol/L Anion Gap 6.0 3-11 mmol/L Blood Urea Nitrogen 18 7-18 mg/dl Creatinine 0.85 0.60-1.20 mg/dl Est Creatinine Clear Calc Drug Dose 75.0 ml/min Estimated GFR () 82.8 Estimated GFR (Non- 71.4 BUN/Creatinine Ratio 21.7 10-20 Random Glucose 124 70-99 mg/dl Calcium Level 9.2 8.5-10.1 mg/dl Magnesium Level 2.3 1.8-2.4 mg/dl Total Bilirubin 0.3 0.2-1 mg/dl Aspartate Amino Transf (AST/SGOT) 10 15-37 U/L Alanine Aminotransferase (ALT/SGPT) 27 12-78 U/L Alkaline Phosphatase 111 45-117 U/L Troponin I < 0.015 0-0.045 ng/ml Pro-B-Type Natriuretic Peptide 317 0-900 pg/ml Total Protein 6.4 6.4-8.2 gm/dl Albumin 3.2 3.4-5.0 gm/dl Globulin 3.2 2.5-4.0 gm/dl Albumin/Globulin Ratio 1.0 0.9-2 Influenza Type A (RT-PCR) Neg for Influ A NEG Influenza Type B (RT-PCR) Neg for Influ B NEG Microbiology Results 03/23/17 Blood Culture, Received Pending 03/23/17 Blood Culture, Received Pending Diagnostic Radiology CXR IMPRESSION: 1.There is no airspace consolidation typical for pneumonia and there has been no significant change from 03/16/2017. 2. Small pleural effusions are again noted. Impression Assessment and Plan SHORTNESS OF BREATH, MILD COPD EXACERBATION - admit to med/surg - patient presenting with increasing shortness of breath and cough despite the use of doxycycline and prednisone taper as an outpatient - patient's continued smoking likely contributing to her symptoms - patient saturating well on room air, no infiltrate noted on CXR, no wheezing during my exam - will place patient on IV steroids, around the clock nebs, continue home inhaled corticosteroid - s/p Zosyn in the ED, will change to Levaquin - sputum culture CAD - stable, no reports of chest pain - continue ASA, Plavix, beta yair, nitrate, and statin HTN - BP controlled, continue isosorbide, lisinopril, and metoprolol GASTROPARESIS - continue Reglan GERD - continue H2 yair DVT PROPHYLAXIS - SQ Lovenox DISPO - In my clinical judgment this beneficiary meets acute admission criteria, established by [facility], that includes being hospitalized through two midnights. Level of Care Med/Surg Advanced Directives Existing Living Will: No Existing Power of Radial Drill Press Set Up Operator: No Resuscitation Status FULL RESUSCITATION VTE Prophylaxis VTE Risk Assessment Done? Y/N: Yes Risk Level: Moderate Given or contraindicated: Enoxaparin (Lovenox)SQ Note I have seen and examined the patient and have discussed the case with the provider above. I agree with the assessment and plan above. Ms. Jesus is an active smoker, which is putting her at risk for recurrent bouts of bronchitis as she appears to have today. She has some rhonchi at the lung bases on exam but is not wheezing, and she is not ill-appearing. Agree with Levaquin and IV steroids up front, which will likely be tapered in am based on her clinical appearance. Although she states she has gained 7 lbs in the last week, she has also been on steroids and there is no evidence of heart failure on exam today. She is off oxygen and has no conversational dyspnea. Cont with plan as above. DO Bong
[2017-03-23] MEDS: FLUTICASONE PROPIONATE NA SPR 16 GM BTL SCH (22:31)
[2017-03-23 23:13] VITALS: BP 111/71; PULSE 80; TEMP 36.7; O2SAT 97
[2017-03-24] VITALS (10 sets, daily range): BP systolic 109–130; BP diastolic 65–75; PULSE 67–107; TEMP 36.7–36.8; O2SAT 90–98
[2017-03-24] MEDS: ALBUT/IPRATROP 3MG/0.5MG NEB 3 ML VIAL INH SCH ×4 (02:13→19:30)
[2017-03-24] MEDS ORDERED: NURSING DECISION MEDICATION ORDER SCH (02:15)
[2017-03-24] MEDS ORDERED: MICONAZOLE NITRATE POWDER 43 GM EXT PRN (04:30)
[2017-03-24] MEDS: METHYLPREDNISOLONE IV 40 MG in SYRINGE 0 ML IV SCH ×3 (05:35→20:47)
[2017-03-24 07:41] LABS: HEMATOCRIT 37.1 % (37-47); MEAN CELL VOLUME 94.6 fL (80-100); MEAN CORPUSCULAR HEMOGLOBIN 30.4 pg (25-34); MEAN CORPUSCULAR HGB CONC 32.1 g/dl (32-36); MEAN PLATELET VOLUME 9.2 fL (7.4-10.4); PLATELET COUNT 517 K/uL (130-400); RED BLOOD COUNT 3.92 M/uL (4.2-5.4); WHITE BLOOD COUNT 16.14 K/uL (4.8-10.8)
[2017-03-24] MEDS: HYDROCODONE/ACETAMOPHEN 5/325MG TAB PO PRN ×3 (07:55→21:51)
[2017-03-24] MEDS: FLUTICASONE PROPIONATE NA SPR 16 GM BTL SCH ×2 (07:56→20:44)
[2017-03-24] MEDS: BUDESONIDE/FORMOTEROL FUMARATE 80/4.5 60 PUFFS/INHALER INH SCH ×2 (07:56→20:44)
[2017-03-24] MEDS: GABAPENTIN 300 MG CAP PO SCH ×2 (07:57→20:47)
[2017-03-24] MEDS: NICOTINE 21 MG/24 HR TDSY TD SCH (07:57)
[2017-03-24] MEDS: METOPROLOL SUCC 25MG EXT REL TAB PO SCH (07:59)
[2017-03-24] MEDS: LISINOPRIL 5 MG TAB PO SCH (07:59)
[2017-03-24] MEDS: MONTELUKAST SOD 10 MG TAB PO SCH (07:59)
[2017-03-24] MEDS: ASPIRIN 81 MG ECTAB PO SCH (07:59)
[2017-03-24] MEDS: ISOSORBIDE MONONITRATE 30 MG TABCR PO SCH (07:59)
[2017-03-24] MEDS: CLOPIDOGREL BISULFATE 75 MG TAB PO SCH (07:59)
[2017-03-24] MEDS: ATORVASTATIN 40 MG TAB PO SCH (08:00)
[2017-03-24] MEDS: METOCLOPRAMIDE HCL 5 MG TAB PO SCH ×3 (08:00→16:44)
[2017-03-24] MEDS: PANTOprazole SOD 40 MG TAB PO SCH (08:00)
[2017-03-24 08:38] LABS: BUN/CREATININE RATIO 17.3 (10-20); CALCIUM 8.8 mg/dl (8.5-10.1); CREATININE 0.96 mg/dl (0.60-1.20); POTASSIUM 4.1 mmol/L (3.5-5.1)
[2017-03-24] MEDS ORDERED: FLUCONAZOLE 100 MG TAB PO ONE (12:15)
[2017-03-24 16:28] LABS: MANUAL MICROSCOPIC REQUIRED? NO; REVIEW REQ? NO; URINE APPEARANCE CLEAR (CLEAR); URINE BILIRUBIN NEG (NEG); URINE COLOR DK YELLOW; URINE EPITHELIAL CELL AUTO >30 /lpf (0-5); URINE NITRITE NEG (NEG); URINE PH 5.5 (4.5-7.5); UROBILINOGEN NEG (NEG); ZZUR CULT IF INDIC CLEAN CATCH NO
--- NOTE | 2017-03-24 16:51 | Progress Note ---
Subjective Date of Service: Mar 24, 2017. Subjective Pt evaluation today including: conversation w/ patient, physical exam, lab review, review of studies, review of inpatient medication list Saw/examined the patient in room 461 C/o shortness of breath - used prednisone as outpatient but did not help her breathing pain in the right rib area, as well as right hip Problem List Medical Problems: (1) Acute bronchitis Status: Acute (2) Closed head injury Status: Acute (3) Concussion Status: Acute (4) COPD exacerbation Status: Acute (5) Hypotension Status: Acute (6) Neck pain, acute Status: Acute (7) Upper GI bleed Status: Acute (8) Vomiting Status: Acute Review of Systems Constitutional: No chills, No fever Respiratory: + cough, + dyspnea at rest, + dyspnea on exertion, + shortness of breath, + sputum, + wheezing, No hemoptysis Cardiac: No chest pain, No edema, No palpitations Abdomen: No diarrhea, No nausea, No pain, No vomiting Musculoskeletal: + joint pain (multiple joints, R hip, R ribs, L knee) Female : + dysuria, + urinary frequency, No abnormal vaginal bleeding, No hematuria, No incontinence Medications Current Inpatient Medications Medications (Trade) Dose Ordered Sig/Sj Route Start Time Stop Time Status Last Admin Dose Admin Enoxaparin Sodium (Lovenox Inj) 40 mg QPM SQ 03/23/17 21:00 04/22/17 20:59 03/23/17 21:56 40 MG Acetaminophen (Tylenol Tab) 650 mg Q4H PRN PO 03/23/17 19:30 04/22/17 19:29 Ondansetron HCl (Zofran Inj) 4 mg Q6H PRN IV 03/23/17 19:30 04/22/17 19:29 Albuterol/ Ipratropium 3 ml 3 ml Q6R INH 03/23/17 21:00 04/22/17 20:59 03/24/17 14:28 3 ML Methylprednisolone Sodium Succinate/ Syringe (Solu-Medrol IV/ Syringe) 0.64 ml @ 1.5 mls/min Q8H IV 03/23/17 21:00 04/22/17 20:59 03/24/17 12:40 1.5 MLS/MIN Nicotine (Nicoderm Cq 21MG Patch) 1 patch QAM TD 03/23/17 20:15 04/22/17 20:14 03/24/17 07:57 1 PATCH Miscellaneous 1 ea 1 ea HS N/A 03/24/17 22:00 04/23/17 21:59 Levofloxacin/Prmx (Levaquin / D5W/ Premixed D5W) 100 ml @ 100 mls/hr DAILY@2100 IV 03/23/17 21:00 03/30/17 20:59 03/23/17 21:56 100 MLS/HR Aspirin (Ecotrin Tab) 81 mg QAM PO 03/24/17 08:00 04/23/17 07:59 03/24/17 07:59 81 MG Atorvastatin Calcium (Lipitor Tab) 80 mg DAILY PO 03/24/17 08:00 04/23/17 07:59 03/24/17 08:00 80 MG Budesonide/ Formoterol Fumarate (Symbicort 80/ 4.5 Inh) 2 puffs BID INH 03/24/17 08:00 04/23/17 07:59 03/24/17 07:56 2 PUFFS Clopidogrel Bisulfate (plAVix TAB) 75 mg QAM PO 03/24/17 08:00 04/23/17 07:59 03/24/17 07:59 75 MG Gabapentin (Neurontin Cap) 300 mg BID PO 03/24/17 08:00 04/23/17 07:59 03/24/17 07:57 300 MG Gabapentin (Neurontin Tab) 600 mg HS PO 03/23/17 22:00 04/22/17 21:59 03/23/17 21:55 600 MG Acetaminophen/ Hydrocodone Bitart ([employer] 5/325 Tab) 1 tab Q6H PRN PO 03/23/17 20:15 04/06/17 20:14 03/24/17 14:48 1 TAB Isosorbide Mononitrate (Imdur Ext Rel Tab) 30 mg DAILY PO 03/24/17 08:00 04/23/17 07:59 03/24/17 07:59 30 MG Lisinopril (Zestril Tab) 5 mg DAILY PO 03/24/17 08:00 04/23/17 07:59 03/24/17 07:59 5 MG Metoclopramide HCl (Reglan Tab) 5 mg TIDM PO 03/24/17 08:00 5/25/17 07:59 03/24/17 12:40 5 MG Metoprolol Succinate (Toprol Xl Tab) 25 mg DAILY PO 03/24/17 08:00 04/23/17 07:59 03/24/17 07:59 25 MG Montelukast Sodium (Singulair Tab) 10 mg QAM PO 03/24/17 08:00 04/23/17 07:59 03/24/17 07:59 10 MG Trazodone HCl (Desyrel Tab) 50 mg HS PO 03/23/17 22:00 04/22/17 21:59 03/23/17 21:55 50 MG Miscellaneous Information (Order Awaiting Action) 1 ea QS N/A 03/24/17 00:00 04/23/17 00:00 Pantoprazole Sodium (Protonix Tab) 40 mg QAM PO 03/24/17 08:00 04/23/17 07:59 03/24/17 08:00 40 MG Ranitidine HCl (zANTac TAB) 300 mg HS PO 03/23/17 22:00 04/22/17 21:59 03/23/17 21:54 300 MG Fluticasone Propionate (Flonase Nasal [place]) 2 sprays BID NA 03/23/17 21:30 04/22/17 21:29 03/24/17 07:56 2 SPRAYS Miconazole Nitrate (Desenex Powder) 1 appln PRN PRN EXT 03/24/17 04:30 04/23/17 04:29 Objective Vital Signs Date Time Temp Pulse Resp B/P Pulse Ox O2 Delivery O2 Flow Rate FiO2 03/24/17 15:10 36.8 79 20 129/69 94 Room Air 03/24/17 14:28 68 16 90 Room Air 03/24/17 12:00 94 Room Air 03/24/17 08:00 Nasal Cannula 2.0 03/24/17 08:00 98 Nasal Cannula 2.0 03/24/17 07:41 36.7 67 20 130/75 98 Nasal Cannula 2.0 03/24/17 07:14 68 16 98 Room Air 03/24/17 00:00 97 Nasal Cannula 2.0 03/24/17 00:00 97 Room Air 2.0 03/23/17 23:13 36.7 80 18 111/71 97 Nasal Cannula 2.0 03/23/17 21:16 36.7 74 18 133/77 97 Room Air 03/23/17 21:01 64 16 96 Room Air 03/23/17 18:00 74 18 149/71 94 03/23/17 17:30 72 18 131/68 93 03/23/17 17:00 72 18 147/62 95 Room Air 03/23/17 17:00 97 Room Air 03/23/17 17:00 97 Room Air 03/23/17 16:30 64 18 152/89 95 Room Air Physical Exam General Appearance: no apparent distress, + obese Respiratory/Chest: no respiratory distress, no accessory muscle use, + decreased breath sounds, + wheezing Cardiovascular: regular rate, rhythm, no murmur Abdomen: normal bowel sounds, non tender, soft, + hernia Extremities: + pertinent finding (trace pedal edema) Neurologic/Psychiatric: no motor/sensory deficits, alert, normal mood/affect Skin: normal color Laboratory Results Last 24 Hours Test 03/23/17 16:38 03/23/17 16:53 03/23/17 18:58 03/24/17 00:00 White Blood Count 18.66 K/uL Red Blood Count 3.95 M/uL Hemoglobin 12.2 g/dL Hematocrit 37.5 % Mean Corpuscular Volume 94.9 fL Mean Corpuscular Hemoglobin 30.9 pg Mean Corpuscular Hemoglobin Concent 32.5 g/dl Platelet Count 544 K/uL Mean Platelet Volume 9.2 fL Neutrophils (%) (Auto) 78.6 % Lymphocytes (%) (Auto) 12.5 % Monocytes (%) (Auto) 5.9 % Eosinophils (%) (Auto) 0.1 % Basophils (%) (Auto) 0.2 % Neutrophils # (Auto) 14.66 K/uL Lymphocytes # (Auto) 2.33 K/uL Monocytes # (Auto) 1.11 K/uL Eosinophils # (Auto) 0.02 K/uL Basophils # (Auto) 0.04 K/uL RDW Standard Deviation 51.7 fL RDW Coefficient of Variation 14.8 % Immature Granulocyte % (Auto) 2.7 % Immature Granulocyte # (Auto) 0.50 K/uL Prothrombin Time 10.8 SECONDS Prothromb Time International Ratio 1.0 Activated Partial Thromboplast Time 25.6 SECONDS Partial Thromboplastin Ratio 1.0 Sodium Level 142 mmol/L Potassium Level mmol/L 4.0 mmol/L Chloride Level 105 mmol/L Carbon Dioxide Level 31 mmol/L Anion Gap 6.0 mmol/L Blood Urea Nitrogen 18 mg/dl Creatinine 0.85 mg/dl Est Creatinine Clear Calc Drug Dose 75.0 ml/min Estimated GFR () 82.8 Estimated GFR (Non- 71.4 BUN/Creatinine Ratio 21.7 Random Glucose 124 mg/dl Calcium Level 9.2 mg/dl Magnesium Level mg/dl 2.3 mg/dl Total Bilirubin 0.3 mg/dl Aspartate Amino Transf (AST/SGOT) U/L 10 U/L Alanine Aminotransferase (ALT/SGPT) 27 U/L Alkaline Phosphatase 111 U/L Troponin I < 0.015 ng/ml Pro-B-Type Natriuretic Peptide 317 pg/ml Total Protein 6.4 gm/dl Albumin 3.2 gm/dl Globulin 3.2 gm/dl Albumin/Globulin Ratio 1.0 Influenza Type A (RT-PCR) Neg for Influ A Influenza Type B (RT-PCR) Neg for Influ B Urine Color DK YELLOW Urine Appearance CLEAR Urine pH 5.5 Urine Specific [place] 1.030 Urine Protein NEG Urine Glucose (UA) NEG Urine Ketones TRACE Urine Occult Blood NEG Urine Nitrite NEG Urine Bilirubin NEG Urine Urobilinogen NEG Urine Leukocyte Esterase TRACE Urine WBC (Auto) 1-5 /hpf Urine RBC (Auto) 0-4 /hpf Urine Hyaline Casts (Auto) 5-10 /lpf Urine Epithelial Cells (Auto) >30 /lpf Urine Bacteria (Auto) NEG Test 03/24/17 07:07 White Blood Count 16.14 K/uL Red Blood Count 3.92 M/uL Hemoglobin 11.9 g/dL Hematocrit 37.1 % Mean Corpuscular Volume 94.6 fL Mean Corpuscular Hemoglobin 30.4 pg Mean Corpuscular Hemoglobin Concent 32.1 g/dl RDW Standard Deviation 50.9 fL RDW Coefficient of Variation 14.9 % Platelet Count 517 K/uL Mean Platelet Volume 9.2 fL Sodium Level 141 mmol/L Potassium Level 4.1 mmol/L Chloride Level 107 mmol/L Carbon Dioxide Level 28 mmol/L Anion Gap 6.0 mmol/L Blood Urea Nitrogen 17 mg/dl Creatinine 0.96 mg/dl Est Creatinine Clear Calc Drug Dose 66.4 ml/min Estimated GFR () 71.4 Estimated GFR (Non- 61.6 BUN/Creatinine Ratio 17.3 Random Glucose 179 mg/dl Calcium Level 8.8 mg/dl Assessment and Plan This is a 66 year old female with PMH of tobacco use disorder and COPD, CAD s/p CABG x 2 and stent in 2015, HTN, Williamson's esophagus, hx. of TIA presents with worsening shortness of breath Acute COPD Exacerbation was seen in the ER on 03/16 - sent home with doxycycline and prednisone states that this did not work and she had to come back to the ER on 03/23 CXR shows no new findings - no pneumonia, consolidation, etc. started on IV solu-medrol and Levaquin - which we can continue for today (03/24) will likely switch to oral prednisone on 03/25 continue nebulizers - restart Spiriva on discharge saturating well without supplemental oxygen - continue to use O2 via nasal cannula nocturnally Tobacco Use Disorder continues to smoke cigarettes ~ 1/2 PPD currently has a nicotine patch on and is motivated to quit counseled on tobacco cessation and pt. agreeable Dysuria patient states that she has some dysuria tells me that this is similar to when she had a yeast infection will give one dose of 150mg fluconazole UA ordered and does not look dirty, no further antibiotics for this are needed CAD s/p CABG no chest pain, no findings on EKG, no elevation of troponins continue current medications: aspirin, Plavix, statin, Imdur, Toprol, Lisinopril DVT ppx Lovenox FULL CODE
[2017-03-24] MEDS: ENOXAPARIN 40 MG/0.4 ML SYR SQ SCH (20:48)
[2017-03-24] MEDS: LEVOFLOXACIN / D5W 500 MG in PREMIXED IN D5W 100 ML IV SCH (20:48)
[2017-03-24] MEDS: TRAZODONE HCL 50 MG TAB PO SCH (21:48)
[2017-03-24] MEDS: GABAPENTIN 600 MG TAB PO SCH (21:48)
[2017-03-24] MEDS: RANITIDINE HCL 150 MG TAB PO SCH (21:49)
[2017-03-25] VITALS (7 sets, daily range): BP systolic 121–134; BP diastolic 76; PULSE 62–82; TEMP 36.4–36.8; O2SAT 92–97
[2017-03-25] MEDS: ALBUT/IPRATROP 3MG/0.5MG NEB 3 ML VIAL INH SCH ×6 (02:15→23:28)
[2017-03-25] MEDS: METHYLPREDNISOLONE IV 40 MG in SYRINGE 0 ML IV SCH ×2 (05:22→12:26)
[2017-03-25 08:52] LABS: BUN/CREATININE RATIO 20.5 (10-20); POTASSIUM 4.3 mmol/L (3.5-5.1)
[2017-03-25 08:54] LABS: CALCIUM 9.6 mg/dl (8.5-10.1)
[2017-03-25 09:27] LABS: HEMATOCRIT 38.1 % (37-47); MEAN CELL VOLUME 95.7 fL (80-100); MEAN CORPUSCULAR HEMOGLOBIN 30.2 pg (25-34); MEAN CORPUSCULAR HGB CONC 31.5 g/dl (32-36); MEAN PLATELET VOLUME 9.2 fL (7.4-10.4); PLATELET COUNT 524 K/uL (130-400); RED BLOOD COUNT 3.98 M/uL (4.2-5.4); WHITE BLOOD COUNT 25.23 K/uL (4.8-10.8)
[2017-03-25] MEDS: ASPIRIN 81 MG ECTAB PO SCH (09:29)
[2017-03-25] MEDS: BUDESONIDE/FORMOTEROL FUMARATE 80/4.5 60 PUFFS/INHALER INH SCH ×2 (09:29→21:14)
[2017-03-25] MEDS: FLUTICASONE PROPIONATE NA SPR 16 GM BTL SCH ×2 (09:29→21:14)
[2017-03-25] MEDS: MONTELUKAST SOD 10 MG TAB PO SCH (09:30)
[2017-03-25] MEDS: GABAPENTIN 300 MG CAP PO SCH ×2 (09:30→17:03)
[2017-03-25] MEDS: ATORVASTATIN 40 MG TAB PO SCH (09:30)
[2017-03-25] MEDS: ISOSORBIDE MONONITRATE 30 MG TABCR PO SCH (09:30)
[2017-03-25] MEDS: METOPROLOL SUCC 25MG EXT REL TAB PO SCH (09:30)
[2017-03-25] MEDS: CLOPIDOGREL BISULFATE 75 MG TAB PO SCH (09:30)
[2017-03-25] MEDS: METOCLOPRAMIDE HCL 5 MG TAB PO SCH ×3 (09:30→17:04)
[2017-03-25] MEDS: PANTOprazole SOD 40 MG TAB PO SCH ×2 (09:30→21:16)
[2017-03-25] MEDS: LISINOPRIL 5 MG TAB PO SCH (09:31)
[2017-03-25] MEDS: NICOTINE 21 MG/24 HR TDSY TD SCH (09:31)
[2017-03-25] MEDS: HYDROCODONE/ACETAMOPHEN 5/325MG TAB PO PRN ×3 (09:36→23:44)
--- NOTE | 2017-03-25 12:33 | Clinical Documentation Query ---
CLINICAL DOCUMENTATION QUERY Dr. WATKINS, In your clinical opinion is this patient being managed for: ( ) Acute bronchitis with acute COPD exacerbation ( ) Other explanation of clinical findings (Please Explain) ( ) Unable to determine (Please Define) ( ) Need to Discuss ( ) Not Agree The medical record reflects the following clinical findings, treatment, and risk factors. Clinical Indicators: 66 yo female presenting with worsening dyspnea. Was seen in ER previously and diagnosed with bronchitis--discharged with outpatient treatment of oral antibiotics and oral steroids. Now noted to have a cough productive for yellow and green sputum. Treatment:IV zosyn, duonebs, IV levaquin, IV solumedrol, O2 HS Risk Factors: chronic tobacco use, COPD Please clarify and document your clinical opinion in the progress notes and discharge summary. Terms such as "probable", "suspected", "likely", "questionable", "possible", or "still to be ruled out" are acceptable. IF IN AGREEMENT, YOU MUST DOCUMENT ABOVE DIAGNOSTIC STATEMENT IN DAILY PROGRESS NOTES AND DISCHARGE SUMMARY. This document is not part of the patient's record. Thank You, Saranya Sahu RN [phone]
--- NOTE | 2017-03-25 15:54 | DIAGNOSTIC IMAGING REPORT ---
ULTRASOUND ABDOMINAL WALL CLINICAL HISTORY: Epigastric abdominal pain. Clinical concern for hernia. FINDINGS: Real-time grayscale sonography of the supraumbilical abdominal wall is performed at the indicated site of interest. There is no sonographic evidence of umbilical hernia. No hernia could be induced and the patient perform the Valsalva maneuver. The septae soft tissues are normal in appearance. IMPRESSION: There is no sonographic evidence of umbilical/periumbilical hernia as clinically queried. Electronically signed by: Doug Figueredo M.D. 03/25/2017 3:52 PM Dictated Date/Time: 03/25/2017 3:51 PM
--- NOTE | 2017-03-25 16:05 | Progress Note ---
Subjective Date of Service: Mar 25, 2017. Subjective Pt evaluation today including: conversation w/ patient, physical exam, lab review, review of studies, review of inpatient medication list Saw/examined the patient in room 461 C/o abdominal pain and reflux like symptoms breathing improving Problem List Medical Problems: (1) Acute bronchitis Status: Acute (2) Closed head injury Status: Acute (3) Concussion Status: Acute (4) COPD exacerbation Status: Acute (5) Hypotension Status: Acute (6) Neck pain, acute Status: Acute (7) Upper GI bleed Status: Acute (8) Vomiting Status: Acute Review of Systems Constitutional: No chills, No fever Respiratory: + cough, + shortness of breath, + sputum Cardiac: No chest pain, No edema, No palpitations Abdomen: + pain, No GI bleeding, No constipation, No diarrhea, No nausea, No vomiting Medications Current Inpatient Medications Medications (Trade) Dose Ordered Sig/Sj Route Start Time Stop Time Status Last Admin Dose Admin Enoxaparin Sodium (Lovenox Inj) 40 mg QPM SQ 03/23/17 21:00 04/22/17 20:59 03/24/17 20:48 40 MG Acetaminophen (Tylenol Tab) 650 mg Q4H PRN PO 03/23/17 19:30 04/22/17 19:29 Ondansetron HCl (Zofran Inj) 4 mg Q6H PRN IV 03/23/17 19:30 04/22/17 19:29 Albuterol/ Ipratropium (Duoneb) 3 ml Q6R INH 03/23/17 21:00 04/22/17 20:59 03/25/17 13:47 3 ML Nicotine (Nicoderm Cq 21MG Patch) 1 patch QAM TD 03/23/17 20:15 04/22/17 20:14 03/25/17 09:31 1 PATCH Miscellaneous 1 ea 1 ea HS N/A 03/24/17 22:00 04/23/17 21:59 03/24/17 21:49 1 EA Levofloxacin/Prmx (Levaquin / D5W/ Premixed D5W) 100 ml @ 100 mls/hr DAILY@2100 IV 03/23/17 21:00 03/30/17 20:59 03/24/17 20:48 100 MLS/HR Aspirin (Ecotrin Tab) 81 mg QAM PO 03/24/17 08:00 04/23/17 07:59 03/25/17 09:29 81 MG Atorvastatin Calcium (Lipitor Tab) 80 mg DAILY PO 03/24/17 08:00 04/23/17 07:59 03/25/17 09:30 80 MG Budesonide/ Formoterol Fumarate (Symbicort 80/ 4.5 Inh) 2 puffs BID INH 03/24/17 08:00 04/23/17 07:59 03/25/17 09:29 2 PUFFS Clopidogrel Bisulfate (plAVix TAB) 75 mg QAM PO 03/24/17 08:00 04/23/17 07:59 03/25/17 09:30 75 MG Gabapentin (Neurontin Tab) 600 mg HS PO 03/23/17 22:00 04/22/17 21:59 03/24/17 21:48 600 MG Acetaminophen/ Hydrocodone Bitart ([place] 5/325 Tab) 1 tab Q6H PRN PO 03/23/17 20:15 04/06/17 20:14 03/25/17 09:36 1 TAB Isosorbide Mononitrate (Imdur Ext Rel Tab) 30 mg DAILY PO 03/24/17 08:00 04/23/17 07:59 03/25/17 09:30 30 MG Lisinopril (Zestril Tab) 5 mg DAILY PO 03/24/17 08:00 04/23/17 07:59 03/25/17 09:31 5 MG Metoclopramide HCl (Reglan Tab) 5 mg TIDM PO 03/24/17 08:00 04/23/17 07:59 03/25/17 12:26 5 MG Metoprolol Succinate (Toprol Xl Tab) 25 mg DAILY PO 03/24/17 08:00 04/23/17 07:59 03/25/17 09:30 25 MG Montelukast Sodium (Singulair Tab) 10 mg QAM PO 03/24/17 08:00 04/23/17 07:59 03/25/17 09:30 10 MG Trazodone HCl (Desyrel Tab) 50 mg HS PO 03/23/17 22:00 04/22/17 21:59 03/24/17 21:48 50 MG Miscellaneous Information (Order Awaiting Action) 1 ea QS N/A 03/24/17 00:00 04/23/17 00:00 Ranitidine HCl (zANTac TAB) 300 mg HS PO 03/23/17 22:00 04/22/17 21:59 03/24/17 21:49 300 MG Fluticasone Propionate (Flonase Nasal [place]) 2 sprays BID NA 03/23/17 21:30 04/22/17 21:29 03/25/17 09:29 2 SPRAYS Miconazole Nitrate (Desenex Powder) 1 appln PRN PRN EXT 03/24/17 04:30 04/23/17 04:29 Pantoprazole Sodium (Protonix Tab) 40 mg BID PO 03/25/17 20:00 04/24/17 19:59 Prednisone (PredniSONE TAB) 40 mg DAILY PO 03/26/17 08:00 04/25/17 07:59 Gabapentin (Neurontin Cap) 300 mg BID@0800,1200 PO 03/25/17 15:00 04/24/17 14:59 Objective Vital Signs Date Time Temp Pulse Resp B/P Pulse Ox O2 Delivery O2 Flow Rate FiO2 03/25/17 13:47 62 20 95 Room Air 03/25/17 11:48 Room Air 03/25/17 07:58 36.8 69 18 121/76 95 Room Air 03/25/17 07:56 62 20 97 Nasal Cannula 2.0 03/25/17 02:51 62 20 92 Room Air 03/25/17 00:00 Room Air 2.0 Nasal Cannula 03/24/17 23:44 36.7 87 18 109/65 93 Room Air 03/24/17 20:00 Room Air 2.0 Nasal Cannula 03/24/17 19:30 107 16 93 Room Air Physical Exam General Appearance: no apparent distress, + obese Respiratory/Chest: chest non-tender, no respiratory distress, no accessory muscle use, + wheezing (end expiratory) Cardiovascular: regular rate, rhythm, no edema, no murmur Abdomen: normal bowel sounds, soft, + tenderness Extremities: normal inspection, no pedal edema Laboratory Results Last 24 Hours Test 03/25/17 08:00 White Blood Count 25.23 K/uL Red Blood Count 3.98 M/uL Hemoglobin 12.0 g/dL Hematocrit 38.1 % Mean Corpuscular Volume 95.7 fL Mean Corpuscular Hemoglobin 30.2 pg Mean Corpuscular Hemoglobin Concent 31.5 g/dl RDW Standard Deviation 52.5 fL RDW Coefficient of Variation 15.0 % Platelet Count 524 K/uL Mean Platelet Volume 9.2 fL Sodium Level 142 mmol/L Potassium Level 4.3 mmol/L Chloride Level 106 mmol/L Carbon Dioxide Level 27 mmol/L Anion Gap 9.0 mmol/L Blood Urea Nitrogen 21 mg/dl Creatinine 1.00 mg/dl Est Creatinine Clear Calc Drug Dose 63.7 ml/min Estimated GFR () 68.0 Estimated GFR (Non- 58.7 BUN/Creatinine Ratio 20.5 Random Glucose 147 mg/dl Calcium Level 9.6 mg/dl Assessment and Plan This is a 66 year old female with PMH of tobacco use disorder and COPD, CAD s/p CABG x 2 and stent in 2014, HTN, Williamson's esophagus, hx. of TIA presents with worsening shortness of breath Acute COPD Exacerbation 03/25 patient is doing well, requiring no supplemental O2 will switch IV solu-medrol to prednisone in AM (03/26) continue Levaquin for now 03/24 was seen in the ER on 03/16 - sent home with doxycycline and prednisone states that this did not work and she had to come back to the ER on 03/23 CXR shows no new findings - no pneumonia, consolidation, etc. started on IV solu-medrol and Levaquin - which we can continue for today (03/24) will likely switch to oral prednisone on 03/25 continue nebulizers - restart Spiriva on discharge saturating well without supplemental oxygen - continue to use O2 via nasal cannula nocturnally Abdominal Pain obtain an U/S no evidence of hernia noted PPI increased to BID dosing (increased reflux symptoms) Tobacco Use Disorder continues to smoke cigarettes ~ 1/2 PPD currently has a nicotine patch on and is motivated to quit counseled on tobacco cessation and pt. agreeable Dysuria patient states that she has some dysuria tells me that this is similar to when she had a yeast infection will give one dose of 150mg fluconazole UA ordered and does not look dirty, no further antibiotics for this are needed CAD s/p CABG no chest pain, no findings on EKG, no elevation of troponins continue current medications: aspirin, Plavix, statin, Imdur, Toprol, Lisinopril DVT ppx Lovenox FULL CODE
[2017-03-25] MEDS: LEVOFLOXACIN / D5W 500 MG in PREMIXED IN D5W 100 ML IV SCH (21:16)
[2017-03-25] MEDS: ENOXAPARIN 40 MG/0.4 ML SYR SQ SCH (21:17)
[2017-03-25] MEDS: TRAZODONE HCL 50 MG TAB PO SCH (21:24)
[2017-03-25] MEDS: GABAPENTIN 600 MG TAB PO SCH (21:25)
[2017-03-25] MEDS: RANITIDINE HCL 150 MG TAB PO SCH (21:25)
[2017-03-26] VITALS: O2SAT 95
[2017-03-26 00:23] VITALS: BP 131/81; PULSE 71; TEMP 36.6; O2SAT 96
[2017-03-26] MEDS: ALBUT/IPRATROP 3MG/0.5MG NEB 3 ML VIAL INH SCH ×4 (02:56→20:36)
[2017-03-26 07:29] LABS: MEAN CELL VOLUME 96.8 fL (80-100); MEAN PLATELET VOLUME 9.3 fL (7.4-10.4); PLATELET COUNT 479 K/uL (130-400); RED BLOOD COUNT 4.03 M/uL (4.2-5.4)
[2017-03-26 07:55] VITALS: BP 138/84; PULSE 68; TEMP 36.5; O2SAT 97
[2017-03-26 08:05] LABS: BUN/CREATININE RATIO 20.3 (10-20); CALCIUM 9.1 mg/dl (8.5-10.1); CREATININE 0.96 mg/dl (0.60-1.20); POTASSIUM 3.7 mmol/L (3.5-5.1)
[2017-03-26] MEDS: BUDESONIDE/FORMOTEROL FUMARATE 80/4.5 60 PUFFS/INHALER INH SCH ×2 (08:56→22:02)
[2017-03-26] MEDS: CLOPIDOGREL BISULFATE 75 MG TAB PO SCH (08:57)
[2017-03-26] MEDS: FLUTICASONE PROPIONATE NA SPR 16 GM BTL SCH ×2 (08:57→22:02)
[2017-03-26] MEDS: GABAPENTIN 300 MG CAP PO SCH ×2 (08:57→13:30)
[2017-03-26] MEDS: ISOSORBIDE MONONITRATE 30 MG TABCR PO SCH (08:57)
[2017-03-26] MEDS: ATORVASTATIN 40 MG TAB PO SCH (08:57)
[2017-03-26] MEDS: ASPIRIN 81 MG ECTAB PO SCH (08:57)
[2017-03-26] MEDS: MONTELUKAST SOD 10 MG TAB PO SCH (08:58)
[2017-03-26] MEDS: PANTOprazole SOD 40 MG TAB PO SCH ×2 (08:58→22:04)
[2017-03-26] MEDS: LISINOPRIL 5 MG TAB PO SCH (08:58)
[2017-03-26] MEDS: METOPROLOL SUCC 25MG EXT REL TAB PO SCH (08:58)
[2017-03-26] MEDS: METOCLOPRAMIDE HCL 5 MG TAB PO SCH ×3 (08:58→17:59)
[2017-03-26] MEDS: NICOTINE 21 MG/24 HR TDSY TD SCH (08:59)
[2017-03-26] MEDS: HYDROCODONE/ACETAMOPHEN 5/325MG TAB PO PRN ×2 (09:00→22:08)
[2017-03-26] MEDS ORDERED: SODIUM CHLORIDE 0.65% NA SOLN 45 ML (OCEAN) ONE (09:04)
[2017-03-26] MEDS ORDERED: SODIUM CHLORIDE 0.65% NA SOLN 45 ML (OCEAN) PRN (09:45)
[2017-03-26] MEDS ORDERED: NURSING VERBAL MED ORDER ONE (11:45)
[2017-03-26] MEDS ORDERED: BISACODYL 5 MG TABEC ONE ×2 (11:52→17:57)
[2017-03-26] MEDS ORDERED: BISACODYL 5 MG TABEC PO ONE ×2 (12:00→15:30)
[2017-03-26 14:44] VITALS: BP_SYST 109; BP_SYST 166; BP_DIAS 68; BP_DIAS 76; PULSE 55; PULSE 75; PULSE 91; TEMP 36.3; TEMP 36.8; O2SAT 96; O2SAT 97
[2017-03-26] MEDS ORDERED: DOCUSATE SODIUM 100 MG CAP PO ONE (15:30)
[2017-03-26] MEDS: LEVOFLOXACIN 500 MG TAB PO SCH (16:13)
--- NOTE | 2017-03-26 16:37 | Progress Note ---
Subjective Date of Service: Mar 26, 2017. Subjective Pt evaluation today including: conversation w/ patient, physical exam, lab review, review of studies, review of inpatient medication list Saw/examined the patient in room 461 she's breathing much better with no significant issues c/o constipation Problem List Medical Problems: (1) Acute bronchitis Status: Acute (2) Closed head injury Status: Acute (3) Concussion Status: Acute (4) COPD exacerbation Status: Acute (5) Hypotension Status: Acute (6) Neck pain, acute Status: Acute (7) Upper GI bleed Status: Acute (8) Vomiting Status: Acute Review of Systems Constitutional: No chills, No fever Respiratory: + cough, + sputum (improving), No shortness of breath Cardiac: No chest pain Abdomen: + constipation, No GI bleeding, No diarrhea, No nausea, No pain, No vomiting Medications Current Inpatient Medications Medications (Trade) Dose Ordered Sig/Sj Route Start Time Stop Time Status Last Admin Dose Admin Enoxaparin Sodium (Lovenox Inj) 40 mg QPM SQ 03/23/17 21:00 04/22/17 20:59 03/25/17 21:17 40 MG Acetaminophen (Tylenol Tab) 650 mg Q4H PRN PO 03/23/17 19:30 04/22/17 19:29 Ondansetron HCl (Zofran Inj) 4 mg Q6H PRN IV 03/23/17 19:30 04/22/17 19:29 Albuterol/ Ipratropium (Duoneb) 3 ml Q6R INH 03/23/17 21:00 04/22/17 20:59 03/26/17 14:44 3 ML Nicotine (Nicoderm Cq 21MG Patch) 1 patch QAM TD 03/23/17 20:15 04/22/17 20:14 03/26/17 08:59 1 PATCH Miscellaneous (Remove Nicoderm Patch) 1 ea HS N/A 03/24/17 22:00 04/23/17 21:59 03/25/17 21:17 1 EA Aspirin (Ecotrin Tab) 81 mg QAM PO 03/24/17 08:00 04/23/17 07:59 03/26/17 08:57 81 MG Atorvastatin Calcium (Lipitor Tab) 80 mg DAILY PO 03/24/17 08:00 04/23/17 07:59 03/26/17 08:57 80 MG Budesonide/ Formoterol Fumarate (Symbicort 80/ 4.5 Inh) 2 puffs BID INH 03/24/17 08:00 04/23/17 07:59 03/26/17 08:56 2 PUFFS Clopidogrel Bisulfate (plAVix TAB) 75 mg QAM PO 03/24/17 08:00 04/23/17 07:59 03/26/17 08:57 75 MG Gabapentin (Neurontin Tab) 600 mg HS PO 03/23/17 22:00 04/22/17 21:59 03/25/17 21:25 600 MG Acetaminophen/ Hydrocodone Bitart ([place] 5/325 Tab) 1 tab Q6H PRN PO 03/23/17 20:15 04/06/17 20:14 03/26/17 09:00 1 TAB Isosorbide Mononitrate (Imdur Ext Rel Tab) 30 mg DAILY PO 03/24/17 08:00 04/23/17 07:59 03/26/17 08:57 30 MG Lisinopril (Zestril Tab) 5 mg DAILY PO 03/24/17 08:00 04/23/17 07:59 03/26/17 08:58 5 MG Metoclopramide HCl (Reglan Tab) 5 mg TIDM PO 03/24/17 08:00 04/23/17 07:59 03/26/17 12:40 5 MG Metoprolol Succinate (Toprol Xl Tab) 25 mg DAILY PO 03/24/17 08:00 04/23/17 07:59 03/26/17 08:58 25 MG Montelukast Sodium (Singulair Tab) 10 mg QAM PO 03/24/17 08:00 04/23/17 07:59 03/26/17 08:58 10 MG Trazodone HCl (Desyrel Tab) 50 mg HS PO 03/23/17 22:00 04/22/17 21:59 03/25/17 21:24 50 MG Miscellaneous Information (Order Awaiting Action) 1 ea QS N/A 03/24/17 00:00 04/23/17 00:00 Ranitidine HCl (zANTac TAB) 300 mg HS PO 03/23/17 22:00 04/22/17 21:59 03/25/17 21:25 300 MG Fluticasone Propionate (Flonase Nasal [place]) 2 sprays BID NA 03/23/17 21:30 04/22/17 21:29 03/26/17 08:57 2 SPRAYS Miconazole Nitrate (Desenex Powder) 1 appln PRN PRN EXT 03/24/17 04:30 04/23/17 04:29 Pantoprazole Sodium (Protonix Tab) 40 mg BID PO 03/25/17 20:00 04/24/17 19:59 03/26/17 08:58 40 MG Prednisone (PredniSONE TAB) 40 mg DAILY PO 03/26/17 08:00 04/25/17 07:59 03/26/17 08:58 40 MG Gabapentin (Neurontin Cap) 300 mg BID@0800,1200 PO 03/25/17 15:00 04/24/17 14:59 03/26/17 13:30 300 MG Sodium Chloride ([place] Nasal [place]) 1 sprays PRN PRN NA 03/26/17 09:45 04/25/17 09:44 Levofloxacin (Levaquin Tab) 500 mg DAILY@11 PO 03/26/17 16:00 03/30/17 20:59 03/26/17 16:13 500 MG Docusate Sodium (coLACE CAP) 100 mg BID PO 03/26/17 20:00 04/25/17 19:59 Senna (Senokot Tab) 8.6 mg QAM PO 03/27/17 08:00 04/26/17 07:59 Objective Vital Signs Date Time Temp Pulse Resp B/P Pulse Ox O2 Delivery O2 Flow Rate FiO2 03/26/17 14:44 36.8 75 18 109/68 96 Room Air 03/26/17 14:44 55 20 96 Nasal Cannula 2.0 03/26/17 13:43 Nasal Cannula 2.0 03/26/17 07:55 36.5 68 18 138/84 97 Nasal Cannula 1.5 03/26/17 00:23 36.6 71 18 131/81 96 2.0 03/26/17 00:00 95 Room Air 03/25/17 23:28 68 20 95 Room Air 03/25/17 19:56 62 20 95 Room Air Physical Exam General Appearance: no apparent distress Respiratory/Chest: chest non-tender, lungs clear, normal breath sounds, no respiratory distress, no accessory muscle use Cardiovascular: regular rate, rhythm, no edema, no murmur Abdomen: non tender, soft, + distended Laboratory Results Last 24 Hours Test 03/26/17 07:09 White Blood Count 27.10 K/uL Red Blood Count 4.03 M/uL Hemoglobin 12.1 g/dL Hematocrit 39.0 % Mean Corpuscular Volume 96.8 fL Mean Corpuscular Hemoglobin 30.0 pg Mean Corpuscular Hemoglobin Concent 31.0 g/dl RDW Standard Deviation 54.1 fL RDW Coefficient of Variation 15.3 % Platelet Count 479 K/uL Mean Platelet Volume 9.3 fL Sodium Level 140 mmol/L Potassium Level 3.7 mmol/L Chloride Level 105 mmol/L Carbon Dioxide Level 28 mmol/L Anion Gap 7.0 mmol/L Blood Urea Nitrogen 20 mg/dl Creatinine 0.96 mg/dl Est Creatinine Clear Calc Drug Dose 66.4 ml/min Estimated GFR () 71.4 Estimated GFR (Non- 61.6 BUN/Creatinine Ratio 20.3 Random Glucose 127 mg/dl Calcium Level 9.1 mg/dl Assessment and Plan This is a 66 year old female with PMH of tobacco use disorder and COPD, CAD s/p CABG x 2 and stent in 2015, HTN, Williamson's esophagus, hx. of TIA presents with worsening shortness of breath Acute COPD Exacerbation 03/26 continue prednisone for now continue Levaquin (switch IV to PO) requesting O2 for home, but she is saturating well on RA she can use nocturnal O2, which she has 03/25 patient is doing well, requiring no supplemental O2 will switch IV solu-medrol to prednisone in AM (03/26) continue Levaquin for now 03/24 was seen in the ER on 03/16 - sent home with doxycycline and prednisone states that this did not work and she had to come back to the ER on 03/23 CXR shows no new findings - no pneumonia, consolidation, etc. started on IV solu-medrol and Levaquin - which we can continue for today (03/24) will likely switch to oral prednisone on 03/25 continue nebulizers - restart Spiriva on discharge saturating well without supplemental oxygen - continue to use O2 via nasal cannula nocturnally Abdominal Pain obtain an U/S no evidence of hernia noted PPI increased to BID dosing (increased reflux symptoms) ordered Colace, Dulcolax, Senna Tobacco Use Disorder continues to smoke cigarettes ~ 1/2 PPD currently has a nicotine patch on and is motivated to quit counseled on tobacco cessation and pt. agreeable Dysuria patient states that she has some dysuria tells me that this is similar to when she had a yeast infection will give one dose of 150mg fluconazole UA ordered and does not look dirty, no further antibiotics for this are needed CAD s/p CABG no chest pain, no findings on EKG, no elevation of troponins continue current medications: aspirin, Plavix, statin, Imdur, Toprol, Lisinopril DVT ppx Lovenox FULL CODE
[2017-03-26 20:37] VITALS: PULSE 68; O2SAT 95
[2017-03-26] MEDS: DOCUSATE SODIUM 100 MG CAP PO SCH (22:04)
[2017-03-26] MEDS: GABAPENTIN 600 MG TAB PO SCH (22:05)
[2017-03-26] MEDS: ENOXAPARIN 40 MG/0.4 ML SYR SQ SCH (22:05)
[2017-03-26] MEDS: TRAZODONE HCL 50 MG TAB PO SCH (22:05)
[2017-03-26] MEDS: RANITIDINE HCL 150 MG TAB PO SCH (22:06)
[2017-03-26 23:52] VITALS: BP 125/79; PULSE 79; TEMP 36.8; O2SAT 98
[2017-03-27] VITALS: O2SAT 98
[2017-03-27] MEDS: ALBUT/IPRATROP 3MG/0.5MG NEB 3 ML VIAL INH SCH ×2 (01:07→08:08)
[2017-03-27] MEDS: ASPIRIN 81 MG ECTAB PO SCH (07:42)
[2017-03-27] MEDS: GABAPENTIN 300 MG CAP PO SCH ×2 (07:43→11:57)
[2017-03-27] MEDS: ATORVASTATIN 40 MG TAB PO SCH (07:43)
[2017-03-27] MEDS: CLOPIDOGREL BISULFATE 75 MG TAB PO SCH (07:43)
[2017-03-27] MEDS: DOCUSATE SODIUM 100 MG CAP PO SCH (07:44)
[2017-03-27] MEDS: ISOSORBIDE MONONITRATE 30 MG TABCR PO SCH (07:44)
[2017-03-27] MEDS: METOPROLOL SUCC 25MG EXT REL TAB PO SCH (07:44)
[2017-03-27] MEDS: PANTOprazole SOD 40 MG TAB PO SCH (07:45)
[2017-03-27] MEDS: METOCLOPRAMIDE HCL 5 MG TAB PO SCH ×2 (07:45→11:57)
[2017-03-27] MEDS: MONTELUKAST SOD 10 MG TAB PO SCH (07:45)
[2017-03-27] MEDS: LISINOPRIL 5 MG TAB PO SCH (07:45)
[2017-03-27] MEDS: LEVOFLOXACIN 500 MG TAB PO SCH (07:46)
[2017-03-27] MEDS: BUDESONIDE/FORMOTEROL FUMARATE 80/4.5 60 PUFFS/INHALER INH SCH (07:46)
[2017-03-27] MEDS: FLUTICASONE PROPIONATE NA SPR 16 GM BTL SCH (07:46)
[2017-03-27] MEDS: NICOTINE 21 MG/24 HR TDSY TD SCH (07:46)
[2017-03-27] MEDS: HYDROCODONE/ACETAMOPHEN 5/325MG TAB PO PRN (07:51)
[2017-03-27 08:00] VITALS: O2SAT 98
[2017-03-27] MEDS ORDERED: SENNA 8.6 MG TAB PO SCH (08:00)
[2017-03-27 08:02] LABS: HEMATOCRIT 37.5 % (37-47); MEAN CELL VOLUME 96.4 fL (80-100); MEAN CORPUSCULAR HEMOGLOBIN 31.1 pg (25-34); MEAN CORPUSCULAR HGB CONC 32.3 g/dl (32-36); MEAN PLATELET VOLUME 9.3 fL (7.4-10.4); PLATELET COUNT 443 K/uL (130-400); RED BLOOD COUNT 3.89 M/uL (4.2-5.4); WHITE BLOOD COUNT 22.94 K/uL (4.8-10.8)
[2017-03-27 08:27] LABS: BUN/CREATININE RATIO 23.7 (10-20); CREATININE 0.9 mg/dl (0.60-1.20); POTASSIUM 3.9 mmol/L (3.5-5.1)
[2017-03-27 08:40] LABS: CALCIUM 9.5 mg/dl (8.5-10.1)
[2017-03-27 08:46] VITALS: BP 115/75; PULSE 70; TEMP 36.4; O2SAT 99
--- NOTE | 2017-03-27 12:13 | Progress Note ---
Subjective Date of Service: Mar 27, 2017. Subjective Pt evaluation today including: conversation w/ patient, physical exam, lab review, review of studies, review of inpatient medication list Saw/examined the patient in room 461 She's doing well, no problems/issues to note today Problem List Medical Problems: (1) Acute bronchitis Status: Acute (2) Closed head injury Status: Acute (3) Concussion Status: Acute (4) COPD exacerbation Status: Acute (5) Hypotension Status: Acute (6) Neck pain, acute Status: Acute (7) Upper GI bleed Status: Acute (8) Vomiting Status: Acute Review of Systems Constitutional: No chills, No fever Respiratory: + cough, + sputum, No shortness of breath Cardiac: No chest pain, No edema, No palpitations Abdomen: No diarrhea, No nausea, No pain, No vomiting Heme: No abnormal bleeding/bruising Medications Current Inpatient Medications Medications (Trade) Dose Ordered Sig/Sj Route Start Time Stop Time Status Last Admin Dose Admin Enoxaparin Sodium (Lovenox Inj) 40 mg QPM SQ 03/23/17 21:00 04/22/17 20:59 03/26/17 22:05 40 MG Acetaminophen (Tylenol Tab) 650 mg Q4H PRN PO 03/23/17 19:30 04/22/17 19:29 Ondansetron HCl (Zofran Inj) 4 mg Q6H PRN IV 03/23/17 19:30 04/22/17 19:29 Albuterol/ Ipratropium (Duoneb) 3 ml Q6R INH 03/23/17 21:00 04/22/17 20:59 03/26/17 20:36 3 ML Nicotine (Nicoderm Cq 21MG Patch) 1 patch QAM TD 03/23/17 20:15 04/22/17 20:14 03/27/17 07:46 1 PATCH Miscellaneous (Remove Nicoderm Patch) 1 ea HS N/A 03/24/17 22:00 04/23/17 21:59 03/26/17 22:05 1 EA Aspirin (Ecotrin Tab) 81 mg QAM PO 03/24/17 08:00 04/23/17 07:59 03/27/17 07:42 81 MG Atorvastatin Calcium (Lipitor Tab) 80 mg DAILY PO 03/24/17 08:00 04/23/17 07:59 03/27/17 07:43 80 MG Budesonide/ Formoterol Fumarate (Symbicort 80/ 4.5 Inh) 2 puffs BID INH 03/24/17 08:00 04/23/17 07:59 03/27/17 07:46 2 PUFFS Clopidogrel Bisulfate (plAVix TAB) 75 mg QAM PO 03/24/17 08:00 04/23/17 07:59 03/27/17 07:43 75 MG Gabapentin (Neurontin Tab) 600 mg HS PO 03/23/17 22:00 04/22/17 21:59 03/26/17 22:05 600 MG Acetaminophen/ Hydrocodone Bitart ([place] 5/325 Tab) 1 tab Q6H PRN PO 03/23/17 20:15 04/06/17 20:14 03/27/17 07:51 1 TAB Isosorbide Mononitrate (Imdur Ext Rel Tab) 30 mg DAILY PO 03/24/17 08:00 04/23/17 07:59 03/27/17 07:44 30 MG Lisinopril (Zestril Tab) 5 mg DAILY PO 03/24/17 08:00 04/23/17 07:59 03/27/17 07:45 5 MG Metoclopramide HCl (Reglan Tab) 5 mg TIDM PO 03/24/17 08:00 04/23/17 07:59 03/27/17 11:57 5 MG Metoprolol Succinate (Toprol Xl Tab) 25 mg DAILY PO 03/24/17 08:00 04/23/17 07:59 03/27/17 07:44 25 MG Montelukast Sodium (Singulair Tab) 10 mg QAM PO 03/24/17 08:00 04/23/17 07:59 03/27/17 07:45 10 MG Trazodone HCl (Desyrel Tab) 50 mg HS PO 03/23/17 22:00 04/22/17 21:59 03/26/17 22:05 50 MG Miscellaneous Information (Order Awaiting Action) 1 ea QS N/A 03/24/17 00:00 04/23/17 00:00 Ranitidine HCl (zANTac TAB) 300 mg HS PO 03/23/17 22:00 04/22/17 21:59 03/26/17 22:06 300 MG Fluticasone Propionate (Flonase Nasal [place]) 2 sprays BID NA 03/23/17 21:30 04/22/17 21:29 03/27/17 07:46 2 SPRAYS Miconazole Nitrate (Desenex Powder) 1 appln PRN PRN EXT 03/24/17 04:30 04/23/17 04:29 Pantoprazole Sodium (Protonix Tab) 40 mg BID PO 03/25/17 20:00 04/24/17 19:59 03/27/17 07:45 40 MG Prednisone (PredniSONE TAB) 40 mg DAILY PO 03/26/17 08:00 04/25/17 07:59 03/27/17 07:44 40 MG Gabapentin (Neurontin Cap) 300 mg BID@0800,1200 PO 03/25/17 15:00 04/24/17 14:59 03/27/17 11:57 300 MG Sodium Chloride ([place] Nasal [place]) 1 sprays PRN PRN NA 03/26/17 09:45 04/25/17 09:44 Levofloxacin (Levaquin Tab) 500 mg DAILY@11 PO 03/26/17 16:00 03/30/17 20:59 03/27/17 07:46 500 MG Docusate Sodium (coLACE CAP) 100 mg BID PO 03/26/17 20:00 04/25/17 19:59 03/27/17 07:44 100 MG Senna (Senokot Tab) 8.6 mg QAM PO 03/27/17 08:00 04/26/17 07:59 03/27/17 07:44 8.6 MG Objective Vital Signs Date Time Temp Pulse Resp B/P Pulse Ox O2 Delivery O2 Flow Rate FiO2 03/27/17 08:46 36.4 70 18 115/75 99 2.0 03/27/17 08:00 98 Nasal Cannula 2.0 03/27/17 00:00 98 Nasal Cannula 2.0 03/26/17 23:52 36.8 79 20 125/79 98 2.0 03/26/17 20:37 68 18 95 Nasal Cannula 2.0 03/26/17 16:00 Nasal Cannula 2.0 03/26/17 14:44 36.8 75 18 109/68 96 Room Air 03/26/17 14:44 55 20 96 Nasal Cannula 2.0 03/26/17 13:43 Nasal Cannula 2.0 Physical Exam General Appearance: no apparent distress, + obese Respiratory/Chest: chest non-tender, lungs clear, normal breath sounds, no respiratory distress, no accessory muscle use Cardiovascular: regular rate, rhythm, no edema, no murmur Abdomen: normal bowel sounds, non tender, soft Neurologic/Psychiatric: no motor/sensory deficits, alert, normal mood/affect Laboratory Results Last 24 Hours Test 03/27/17 07:30 White Blood Count 22.94 K/uL Red Blood Count 3.89 M/uL Hemoglobin 12.1 g/dL Hematocrit 37.5 % Mean Corpuscular Volume 96.4 fL Mean Corpuscular Hemoglobin 31.1 pg Mean Corpuscular Hemoglobin Concent 32.3 g/dl RDW Standard Deviation 53.5 fL RDW Coefficient of Variation 15.3 % Platelet Count 443 K/uL Mean Platelet Volume 9.3 fL Sodium Level 140 mmol/L Potassium Level 3.9 mmol/L Chloride Level 101 mmol/L Carbon Dioxide Level 30 mmol/L Anion Gap 9.0 mmol/L Blood Urea Nitrogen 21 mg/dl Creatinine 0.90 mg/dl Est Creatinine Clear Calc Drug Dose 70.8 ml/min Estimated GFR () 77.2 Estimated GFR (Non- 66.6 BUN/Creatinine Ratio 23.7 Random Glucose 91 mg/dl Calcium Level 9.5 mg/dl Assessment and Plan This is a 66 year old female with PMH of tobacco use disorder and COPD, CAD s/p CABG x 2 and stent in 2015, HTN, Williamson's esophagus, hx. of TIA presents with worsening shortness of breath Acute COPD Exacerbation 03/27 patient is doing well, will discharge on prednisone + Levaquin outpatient PCP follow-up 03/26 continue prednisone for now continue Levaquin (switch IV to PO) requesting O2 for home, but she is saturating well on RA she can use nocturnal O2, which she has 03/25 patient is doing well, requiring no supplemental O2 will switch IV solu-medrol to prednisone in AM (03/26) continue Levaquin for now 03/24 was seen in the ER on 03/16 - sent home with doxycycline and prednisone states that this did not work and she had to come back to the ER on 03/23 CXR shows no new findings - no pneumonia, consolidation, etc. started on IV solu-medrol and Levaquin - which we can continue for today (03/24) will likely switch to oral prednisone on 03/25 continue nebulizers - restart Spiriva on discharge saturating well without supplemental oxygen - continue to use O2 via nasal cannula nocturnally Abdominal Pain obtain an U/S no evidence of hernia noted PPI increased to BID dosing (increased reflux symptoms) ordered Colace, Dulcolax, Senna Tobacco Use Disorder continues to smoke cigarettes ~ 1/2 PPD currently has a nicotine patch on and is motivated to quit counseled on tobacco cessation and pt. agreeable Dysuria patient states that she has some dysuria tells me that this is similar to when she had a yeast infection will give one dose of 150mg fluconazole UA ordered and does not look dirty, no further antibiotics for this are needed CAD s/p CABG no chest pain, no findings on EKG, no elevation of troponins continue current medications: aspirin, Plavix, statin, Imdur, Toprol, Lisinopril DVT ppx Lovenox FULL CODE
[2017-03-27] MEDS ORDERED: PRED10TA PO (12:20)
[2017-03-27] MEDS ORDERED: NCDT21 TD (12:20)
[2017-03-27] MEDS ORDERED: LVQ500 PO (12:20)
--- NOTE | 2017-03-27 12:22 | Discharge Instructions ---
Discharge Instructions Date of Service Mar 27, 2017. Admission Reason for Admission: Shortness Of Breath Discharge Discharge Diagnosis / Problem: Acute COPD exacerbation Discharge Goals Goal(s): Decrease discomfort, Improve function Activity Recommendations Activity Limitations: resume your previous activity . Instructions / Follow-Up Instructions / Follow-Up Please follow-up with Dr. Oconnor on March 31 @ 10:15AM * You will be given Levaquin for three days (antibiotic) * You will be given prednisone (steroid); please take as follows * Take 4 tablets (40mg) for two days (03/28, 03/29) * Take 3 tablets (30mg) for the next two days (03/30, 03/31) * Take 2 tablets (20mg) for the next two days (04/01, 04/02) * Take 1 tablet (10mg) for the next two days (04/03, 04/04) * You will be prescribed a nicotine patch and are encouraged to stop smoking Current Hospital Diet Patient's current hospital diet: AHA Diet (Heart Healthy), Low Sodium Diet (2gm Na) Discharge Diet Recommended Diet: AHA Diet (Heart Healthy), Low Sodium Diet (2gm Na) Pending Studies Studies pending at discharge: no Medical Emergencies . Who to Call and When: Medical Emergencies: If at any time you feel your situation is an emergency, please call 911 immediately. . Non-Emergent Contact Non-Emergency issues call your: Primary Care Provider . . "Provider Documentation" section prepared by Helen Peña. . VTE Core Measure Inpt VTE Proph given/why not?: Enoxaparin (Lovenox)SQ
--- NOTE | 2017-03-27 12:26 | Discharge Summary ---
Discharge Summary Date of Service Mar 27, 2017. Discharge Summary Admission Date: Mar 23, 2017 at 18:20 Discharge Date: Mar 27, 2017 Discharge Disposition: Home Principal Diagnosis: Acute COPD exacerbation Medication Reconciliation New Medications: Prednisone Tab (Prednisone) 10 Mg Tab 10 MG PO DAILY for 8 Days, #20 TAB Levofloxacin (Levofloxacin) 500 Mg Tab 500 MG PO DAILY for 3 Days, #3 TAB Nicotine (Nicotine) 1 Patch Tdsy 21 MG TD QAM for 30 Days, #1 BOX Continued Medications: Albuterol Sulfate (Proair Respiclick) 108 Mcg/Act Aer 2 PUFFS INH Q4H PRN for SOB/Wheezing Aspirin (Aspirin Chewable) 81 Mg Chew 81 MG PO QAM Atorvastatin Calcium (Lipitor) 80 Mg Tab 1 TAB PO DAILY for 30 Days, #30 TAB 5 Refills Budesonide/Formoterol Fumarate (Symbicort 80/4.5 Inhaler) Aero 2 PUFFS INH BID, INHALER Clopidogrel (Plavix) 75 Mg Tab 75 MG PO QAM Fluticasone Propionate (Inhala (Flovent Diskus) 100 Mcg/Blist Aer 2 PUFFS INH BID, #1 INHALER 5 Refills Fluticasone Propionate (Nasal) (Flonase Allergy Relief) 50 Mcg/Act Spr 1 SPRAY NA BID Gabapentin (Neurontin) 300 Mg Cap 300 MG PO AM/NOON, CAP TAKE AM SURG SIP WATER Gabapentin (Neurontin) 300 Mg Cap 600 MG PO HS, CAP Hydrocodone/Acetaminophen 5MG/325MG ([place] 5MG/325MG) Tab 1-2 TABLETS PO q4-6 Hours PRN for Pain, #30 TAB PRN PAIN Ipratropium-Albuterol (Duoneb) 3 Ml Nebu 1 TREATMENT INH Q4H PRN for SOB/Wheezing, INHA Isosorbide Mononitrate Ext Rel (Imdur Ext Rel) 30 Mg Ertab 1 TAB PO DAILY for 30 Days, #30 TAB 5 Refills Lisinopril (Prinivil) 5 Mg Tab 5 MG PO DAILY, TAB Metoclopramide (Reglan) 10 Mg Tab 5 MG PO TIDM, TAB Metoprolol Succinate (Toprol Xl) 25 Mg Tab 25 MG PO DAILY for 30 Days, #30 TAB 5 Refills Montelukast Sodium (Singulair) 10 Mg Tab 10 MG PO QAM, TAB Nitroglycerin (Nitrostat) 0.4 Mg Tab 0.4 MG UT PRN, BTL Omeprazole (Prilosec) 20 Mg Capcr 40 MG PO QAM, CAP Oxygen (Oxygen) Gas 2 LITERS NA HS & PRN Ranitidine (Zantac) 300 Mg Tab 300 MG PO HS, TAB Tiotropium [place] (Spiriva Handihaler) 30 Puff/540 Mcg Aerp 1 CAP INH QAM, INHALER Trazodone Hcl (Trazodone) 50 Mg Tab 50 MG PO HS, TAB Admission Information HPI (per Admitting provider): 66 year old female who presents to the ER with shortness of breath. Patient was seen in the ER on 03/16 for similar symptoms and was given doxycycline and prednisone taper. Patient reports continued symptoms despite the use of these medicines. She reports shortness of breath with minimal exertion. She has had a cough productive for yellow and green sputum. She reports hot flashes and chills at times which are chronic. She did not take her temperature at home. She denies chest pain, pressure, or palpitations. She denies abdominal pain, nausea, or vomiting. She reports diarrhea since starting the doxycycline. She denies urinary symptoms. In the ER, patient is saturating well on room air. She was given neb and IV Zosyn. Physical Exam (per Admitting): General Appearance: no apparent distress Head: normocephalic Eyes: normal inspection ENT: hearing grossly normal Neck: supple, no JVD Respiratory/Chest: no respiratory distress, + decreased breath sounds (mild) , + crackles (faint, BL bases) Cardiovascular: regular rate, rhythm, no edema, normal peripheral pulses Abdomen/GI: normal bowel sounds, non tender, soft Extremities/Musculoskelatal: normal inspection, no calf tenderness Neurologic/Psych: no motor/sensory deficits, alert, normal mood/affect, oriented x 3 Skin: normal color, warm/dry Hospital Course This is a 66 year old female with PMH of tobacco use disorder and COPD, CAD s/p CABG x 2 and stent in 2014, HTN, Williamson's esophagus, hx. of TIA presents with worsening shortness of breath Acute COPD Exacerbation 03/27 patient is doing well, will discharge on prednisone + Levaquin outpatient PCP follow-up 03/26 continue prednisone for now continue Levaquin (switch IV to PO) requesting O2 for home, but she is saturating well on RA she can use nocturnal O2, which she has 03/25 patient is doing well, requiring no supplemental O2 will switch IV solu-medrol to prednisone in AM (03/26) continue Levaquin for now 03/24 was seen in the ER on 03/16 - sent home with doxycycline and prednisone states that this did not work and she had to come back to the ER on 03/23 CXR shows no new findings - no pneumonia, consolidation, etc. started on IV solu-medrol and Levaquin - which we can continue for today (03/24) will likely switch to oral prednisone on 03/25 continue nebulizers - restart Spiriva on discharge saturating well without supplemental oxygen - continue to use O2 via nasal cannula nocturnally Abdominal Pain obtain an U/S no evidence of hernia noted PPI increased to BID dosing (increased reflux symptoms) ordered Colace, Dulcolax, Senna Tobacco Use Disorder continues to smoke cigarettes ~ 1/2 PPD currently has a nicotine patch on and is motivated to quit counseled on tobacco cessation and pt. agreeable Dysuria patient states that she has some dysuria tells me that this is similar to when she had a yeast infection will give one dose of 150mg fluconazole UA ordered and does not look dirty, no further antibiotics for this are needed CAD s/p CABG no chest pain, no findings on EKG, no elevation of troponins continue current medications: aspirin, Plavix, statin, Imdur, Toprol, Lisinopril DVT ppx Lovenox FULL CODE Total time spent on discharge = 40 minutes This includes examination of the patient, discharge planning, medication reconciliation, and communication with other providers. Discharge Instructions Please follow-up with Dr. Oconnor on March 31 @ 10:15AM * You will be given Levaquin for three days (antibiotic) * You will be given prednisone (steroid); please take as follows * Take 4 tablets (40mg) for two days (03/28, 03/29) * Take 3 tablets (30mg) for the next two days (03/30, 03/31) * Take 2 tablets (20mg) for the next two days (3, 04/02) * Take 1 tablet (10mg) for the next two days (04/03, 04/04) * You will be prescribed a nicotine patch and are encouraged to stop smoking
[2017-03-27 12:39] VITALS: BP 115/75; PULSE 70; TEMP 36.4; O2SAT 99
[2017-04-09] MEDS ORDERED: FERR1TAB23 PO (09:24)
[2017-04-09] MEDS ORDERED: FLUO20CA20 PO (09:24)
[2017-04-09] MEDS ORDERED: TRAZ100T29 PO (09:24)
[2017-04-09] MEDS ORDERED: PRED10TA PO (09:24)
[2017-04-09] MEDS ORDERED: OMEP40CA41 PO (09:27)
[2017-10-05] MEDS ORDERED: HYDR-3419 PO (11:57)
[2017-10-05] MEDS ORDERED: ANTIBIO (12:15)
[2017-10-05] MEDS ORDERED: PRED-301 PO (12:17)
[2017-10-05] MEDS ORDERED: ANTIBIOTIC PO (12:17)
[2017-10-30] MEDS ORDERED: LORA10CA2 PO (06:31)
[2017-10-30] MEDS ORDERED: PREG1CAP70 PO (06:31)
[2017-10-30] MEDS ORDERED: METO-157 PO (06:31)
[2017-10-30] MEDS ORDERED: DULO60CA44 PO (06:31)
[2017-10-31] MEDS ORDERED: RXC5 PO (07:44)
== END 2017-03-27 13:45 | disposition home or self-care (01) | DRG 192 ==
LOC: ENRESERVDT → ENRESERVTM → C.EDB 14:32 → C.MS4W 18:20
PROVIDERS: ADMIT Hospitalist; ATTEND Family Medicine
DX: J44.1 Chronic obstructive pulmonary disease with (acute) exacerbation (principal); K22.70 Barrett's esophagus without dysplasia; I25.10 Atherosclerotic heart disease of native coronary artery without angina pectoris; N18.3 Chronic kidney disease, stage 3 (moderate); I12.9 Hypertensive chronic kidney disease with stage 1 through stage 4 chronic kidney disease, or unspecified chronic kidney disease; K21.9 Gastro-esophageal reflux disease without esophagitis; Z86.73 Personal history of transient ischemic attack (TIA), and cerebral infarction without residual deficits; Z90.49 Acquired absence of other specified parts of digestive tract; Z90.710 Acquired absence of both cervix and uterus; Z96.642 Presence of left artificial hip joint; Z80.3 Family history of malignant neoplasm of breast; Z82.49 Family history of ischemic heart disease and other diseases of the circulatory system; F17.210 Nicotine dependence, cigarettes, uncomplicated; Z79.82 Long term (current) use of aspirin; Z79.899 Other long term (current) drug therapy; Z79.02 Long term (current) use of antithrombotics/antiplatelets; Z99.81 Dependence on supplemental oxygen; K31.84 Gastroparesis; R30.0 Dysuria; R35.0 Frequency of micturition; E66.9 Obesity, unspecified; Z68.35 Body mass index [BMI] 35.0-35.9, adult; Z95.1 Presence of aortocoronary bypass graft; Z95.5 Presence of coronary angioplasty implant and graft

== ENCOUNTER → 2017-04-06 | Outpatient (CLI) | payer OTHER ==
[~2017-04-06] MED LIST changes: +ANTIBIO; +ANTIBIOTIC PO; +ATOR80TA PO; -CLR10 PO; -CYAN100074 IM; -DOXY100C PO; +DULO60CA44 PO; +FERR1TAB23 PO; -FERROUS SULFATE PO; +FLUO20CA20 PO; +FLUT0.15; -FLUT0.15 NAE; +FLUT1AER5 INH; +HYDR-3419 PO; +IPRASOL4 INH; +ISOS30TA3 PO; +LISI-729 PO; +LORA10CA2 PO; +LVQ500 PO; +METO-157 PO; +METO-478 PO; -METO100T44 PO; +NCDT21 TD; +OMEP40CA41 PO; +PRED-301 PO; +PRED10TA PO; -PRED20TA PO; +PREG1CAP70 PO; +RXC5 PO; -SIMV80TA2 PO; +TRAZ100T29 PO; +TRAZ50TA35 PO; -VNTHFA/IN INH
[2017-04-06 13:56] LABS: BLOOD UREA NITROGEN 33 mg/dl (7-18); BUN/CREATININE RATIO 27.8 (10-20); CALCIUM 9.1 mg/dl (8.5-10.1); CARBON DIOXIDE 25 mmol/L (21-32); CHLORIDE 104 mmol/L (98-107); GLUCOSE 184 mg/dl (70-99); MAGNESIUM 2.3 mg/dl (1.8-2.4); POTASSIUM 4.4 mmol/L (3.5-5.1); SODIUM 138 mmol/L (136-145)
== END | disposition home or self-care (01) ==
LOC: C.LABPBG 10:30
PROVIDERS: ATTEND Internal Medicine Cardiovascular Disease
DX: I10 Essential (primary) hypertension (principal); E78.5 Hyperlipidemia, unspecified; I25.10 Atherosclerotic heart disease of native coronary artery without angina pectoris; I42.9 Cardiomyopathy, unspecified

== ENCOUNTER → 2017-04-14 | Day surgery (SDC) | payer OTHER ==
[2017-04-09 09:29] VITALS: Ht 165.1 cm; Wt 95.0 kg
[~2017-04-14] VITALS: Ht 165.1 cm; Wt 95.0 kg
[~2017-04-14] MED LIST changes: +LIDOCAINE HCL 2% 2 ML VIAL (20MG/ML) ONE; -LVQ500 PO; +PHENYLEPHRINE HCL INJ 10 MG/ML VIAL ONE; -PRLSR20 PO; +PROPOFOL IV EMULSION 10 MG/ML 20 ML VIAL IV ONE; +SODIUM CHLORIDE 0.9% 500ML 500 ML IV ONE; -TRAZ50TA35 PO
--- NOTE | 2017-04-14 13:46 | Endo History and Physical ---
History & Physical Date of Service: April 14, 2017. Chief Complaint: HISTORY OF BARRETTS,DYSPHAGIA Referring Physician: DR WRAY History of Present Illness Epigastric pain, history of Williamson's Past Medical History Angioplasty/Stent, Arthritis, Asthma, Anxiety, Reflux, High Cholesterol, CABG, Hypertension, COPD, CVA/TIA, Depression, [place] Past Surgical History Hx Cardiac Surgery: Yes (HEART CATH-1 STENT PLACED, CABG-2 VESSELS) Hx Internal Defibrillator: No Hx Pacemaker: No Hx Abdominal Surgery: Yes (ANGLE, LAURENT, HERNIA) Hx of Implantable Prosthesis: No Hx Post-Op Nausea and Vomiting: No Hx Cancer Surgery: No Hx Thoracic Surgery: No Hx Orthopedic: Yes (RT/LEFT TKA, RT WRIST GANGLION CYST X 6, RT ELBOW EXCISION) Hx Urinary Tract Surgery: No Family History None Social History Smoking Status: Former Smoker Hx Substance Use: No Hx Alcohol Use: No Allergies Coded Allergies: No Known Allergies (Verified , 04/14/17) Current Medications Reported Home Medications Medications Dose Route/Sig Max Daily Dose Days Date Category Dose Instructions Prilosec (Omeprazole) 40 Mg Cap 40 Mg PO BID 04/09/17 Reported Fluoxetine (Fluoxetine Hcl (Pmdd)) 20 Mg Cap 1 Cap PO QAM 90 04/09/17 Reported Iron (Ferrous Sulfate) 325 Mg Tab 1 Tab PO QAM 04/09/17 Reported Trazodone (Trazodone HCl) 100 Mg Tab 100 Mg PO HS 04/09/17 Reported Prednisone 10 Mg Tab 10 Mg PO QAM 04/09/17 Reported Nicotine 1 Patch Tdsy 21 Mg TD QAM 30 03/27/17 Rx Flonase Allergy Relief (Fluticasone Propionate (Nasal)) 50 Mcg/Act Spr 1 [place] NA BID 03/23/17 Reported Reglan (Metoclopramide HCl) 10 Mg Tab 5 Mg PO TIDM 03/23/17 Reported Prinivil (Lisinopril) 5 Mg Tab 5 Mg PO QAM 03/23/17 Reported Duoneb (Ipratropium-Albuterol) 3 Ml Nebu 1 Treatment INH Q4H PRN 03/23/17 Reported Imdur Ext Rel (Isosorbide Mononitrate) 30 Mg Ertab 1 Tab PO QAM 30 03/23/17 Reported Lipitor (Atorvastatin Calcium) 80 Mg Tab 1 Tab PO QAM 30 03/23/17 Reported Toprol Xl (Metoprolol Succinate) 25 Mg Tab 1 Tab PO QAM 30 03/23/17 Reported Flovent Diskus (Fluticasone Propionate (Inhala) 100 Mcg/Blist Aer 2 Puffs INH BID 03/23/17 Reported Spiriva Handihaler (Tiotropium [place]) 30 Puff/540 Mcg Aerp 1 Cap INH QAM 03/16/17 Reported Proair Respiclick (Albuterol Sulfate) 108 Mcg/Act Aer 2 Puffs INH Q4H PRN 03/16/17 Reported [place] 5MG/325MG (Acetaminophen/Hydrocodone Bitart) Tab 1-2 Tablets PO Q4-6 HOURS PRN 01/20/17 Rx PRN PAIN Nitrostat (Nitroglycerin) 0.4 Mg Tab 0.4 Mg UT PRN 01/15/17 Reported Neurontin (Gabapentin) 300 Mg Cap 300 Mg PO TID 10/16/16 Reported 1 TAB IN AM AND AT LUNCH 2 TAB AT HS Zantac (Ranitidine HCl) 300 Mg Tab 300 Mg PO HS 06/03/16 Reported Symbicort 80/4.5 Inhaler (Budesonide/Formoterol Fumarate) Aero 2 Puffs INH BID 06/03/16 Reported Aspirin Chewable (Aspirin) 81 Mg Chew 81 Mg PO QAM 01/09/16 Reported Singulair (Montelukast Sodium) 10 Mg Tab 10 Mg PO QAM 01/09/16 Reported Oxygen Gas 2 Liters NA HS & PRN 01/09/16 Reported Plavix (Clopidogrel Bisulfate) 75 Mg Tab 75 Mg PO QAM 10/02/09 Reported Vital Signs Weight (Kilograms): 95 Height (Feet): 5 Height (Inches): 5 Date Time Temp Pulse Resp B/P Pulse Ox O2 Delivery O2 Flow Rate FiO2 04/14/17 12:34 36.8 92 20 104/60 94 Room Air Physical Exam General Appearance: WD/WN, no apparent distress Respiratory/Chest: Auscultation: breath sounds normal, rhonchi Cardiovascular: Heart Auscultation: RRR, no murmurs Abdomen: Inspection & Palpation: soft, no tenderness, guarding & rebound Assessment and Plan EGD today.
--- NOTE | 2017-04-14 14:08 | GI REPORT ---
Procedure Date: 04/14/2017 1:26 PM Procedure: Upper GI endoscopy Indications: Epigastric abdominal pain, Dysphagia, Follow-up of Williamson's esophagus Medicines: Monitored Anesthesia Care Complications: No immediate complications. Estimated blood loss: None. Estimated Blood Loss: Estimated blood loss: none. Procedure: Pre-Anesthesia Assessment: - Prior to the procedure, a History and Physical was performed, and patient medications, allergies and sensitivities were reviewed. The patient's tolerance of previous anesthesia was reviewed. - ASA Grade Assessment: III - A patient with severe systemic disease. After obtaining informed consent, the endoscope was passed under direct vision. Throughout the procedure, the patient's blood pressure, pulse, and oxygen saturations were monitored continuously. The Scope was introduced through the mouth, and advanced to the third part of duodenum. The upper GI endoscopy was accomplished with ease. The patient tolerated the procedure well. Findings: No endoscopic abnormality was evident in the esophagus to explain the patient's complaint of dysphagia. It was decided, however, to proceed with dilation of the entire esophagus. A guidewire was placed and the scope was withdrawn. Dilation was performed with a Savary dilator with no resistance at 54 Fr. The esophagus and gastroesophageal junction were examined with white light from a forward view and retroflexed position. There were esophageal mucosal changes classified as Williamson's stage C1-M3 per [place] criteria. These changes involved the mucosa at the upper extent of the gastric folds (33 cm from the incisors) extending to the Z-line (30 cm from the incisors). [place]-colored mucosa was present. The maximum longitudinal extent of these esophageal mucosal changes was 2 cm in length. Mucosa was biopsied with a cold forceps for histology. One specimen bottle was sent to pathology. A medium-sized hiatus hernia was present. A medium amount of food (residue) was found in the cardia. The examined duodenum was normal. Verification of patient identification for the specimen was done by the physician and nurse using the patient's name, date and medical record number. Impression: - No endoscopic esophageal abnormality to explain patient's dysphagia. Esophagus dilated. Dilated. - Esophageal mucosal changes classified as Williamson's stage C1-M3 per [place] criteria. Biopsied. - Medium-sized hiatus hernia. - A medium amount of food (residue) in the stomach. - Normal examined duodenum. Recommendation: - Await pathology results. - Observe patient's clinical course. - Discharge patient to home (with escort). Toi Terry M.D. Toi Terry MD 04/14/2017 2:07:54 PM This report has been signed electronically. Note Initiated On: 04/14/2017 1:26 PM I attest to the content of the Intraoperative Record and orders documented therein, exceptions below
--- NOTE | 2017-04-14 14:09 | Discharge Instructions ---
Endoscopy Patient Instructions Date / Procedure(s) Performed April 14, 2017. EGD Allergy Information Coded Allergies: No Known Allergies (Verified , 04/14/17) Discharge Date / Findings April 14, 2017. Williamson's esophagus, dilation performed. Retained food in stomach (gastroparesis ). Medication Instructions Stopped Medication(s): ASPIRIN 81MG LAST DOSE 04/14/17 PLAVIX LAST DOSE 04/07/17 Restart Stopped Medication(s): Restart all medication today. Provider Instructions Activity Restrictions - No exercising or heavy lifting for 24 hours. - Do not drink alcohol the day of the procedure. - Do not drive a car or operate machinery until the day after the procedure. - Do not make any important decisions or sign important papers in 24 hours after the procedure. Following Day: - Return to full activity which may include returning to work/school. Diet Start your diet with liquids and light foods (jello, soup, juice, toast). Then eat your usual diet if not nauseated. Eat small equal sized meals. Do not eat within three hours of lying down. Treatment For Common After Affects For mild abdominal pain, bloating, or excessive gas: - Rest - Eat lightly - Lie on right side Follow-Up Information Follow-up with DR WRAY as scheduled Anesthesia Information What You Should Know You have had a procedure that required some medicine to reduce anxiety and discomfort. This treatment is called moderate sedation. After receiving the treatment, you may be sleepy, but you will be able to breathe on your own. The effects of the treatment may last for several hours. Follow these instructions along with Activity/Diet recommendations noted above: * Do NOT do anything where dizziness or clumsiness would be dangerous. * Rest quietly at home today, then you can be up and about tomorrow. * Have a responsible person stay with you the rest of today. * You may have had an I.V. today. If so, you may take the dressing off later today. Recommendations Call your doctor if: * Trouble breathing * Continuous vomiting for more than 24 hours * Temperature above 101 degrees * Severe abdominal pain or bloating * Pain not relieved by pain medicine ordered * There is increased drainage or redness from any incision * A large amount of rectal bleeding greater than 2-3 tablespoons. (If you had a polyp/s removed or have hemorrhoids, a small amount of blood - from the rectum is to be expected.) * You have any unanswered questions or concerns. IN THE EVENT OF A SERIOUS EMERGENCY, GO TO THE NEAREST EMERGENCY ROOM Your discharge instructions were prepared by provider Toi Terry. Patient Instructions Signature Page Laury Jesus Patient (or Guardian) Signature/Date: I have read and understand the instructions given to me by my caregivers. Caregiver/RN/Doctor Signature/Date: The above-named patient and/or guardian has received patient instructions on this date. + Original Patient Signature Page (only) stays with chart. Please make copy for patient.
[2017-04-14 14:38] VITALS: BP 110/68; PULSE 80; O2SAT 97
--- NOTE | 2017-04-14 14:40 | Anesthesiology Progress Note ---
Anesthesia Post Op Note Date & Time April 14, 2017 at 14:40 Vital Signs Pain Intensity: 0 Vital Signs Past 12 Hours Date Time Temp Pulse Resp B/P Pulse Ox O2 Delivery O2 Flow Rate FiO2 04/14/17 14:24 80 20 114/71 97 Room Air 04/14/17 14:10 82 20 102/63 97 Room Air 04/14/17 12:34 36.8 92 20 104/60 94 Room Air Notes Mental Status: alert / awake / arousable, participated in evaluation Pt Amnestic to Procedure: Yes Nausea / Vomiting: adequately controlled Pain: adequately controlled Airway Patency, RR, SpO2: stable & adequate BP & HR: stable & adequate Hydration State: stable & adequate Anesthetic Complications: no major complications apparent
== END | disposition home or self-care (01) ==
LOC: C.GI 11:58
PROVIDERS: ATTEND Internal Medicine Gastroenterology
DX: R10.13 Epigastric pain (principal); R13.10 Dysphagia, unspecified; K44.9 Diaphragmatic hernia without obstruction or gangrene; I12.9 Hypertensive chronic kidney disease with stage 1 through stage 4 chronic kidney disease, or unspecified chronic kidney disease; J44.9 Chronic obstructive pulmonary disease, unspecified; N18.9 Chronic kidney disease, unspecified; J45.909 Unspecified asthma, uncomplicated; E78.00 Pure hypercholesterolemia, unspecified; E66.9 Obesity, unspecified; G47.33 Obstructive sleep apnea (adult) (pediatric); I25.10 Atherosclerotic heart disease of native coronary artery without angina pectoris; I25.2 Old myocardial infarction; Z95.1 Presence of aortocoronary bypass graft; Z98.890 Other specified postprocedural states; Z87.891 Personal history of nicotine dependence; Z86.73 Personal history of transient ischemic attack (TIA), and cerebral infarction without residual deficits; Z96.653 Presence of artificial knee joint, bilateral; Z68.34 Body mass index [BMI] 34.0-34.9, adult; Z79.02 Long term (current) use of antithrombotics/antiplatelets

== ENCOUNTER → 2017-05-11 | Outpatient (CLI) | payer OTHER ==
[~2017-05-11] MED LIST changes: -LIDOCAINE HCL 2% 2 ML VIAL (20MG/ML) ONE; -PHENYLEPHRINE HCL INJ 10 MG/ML VIAL ONE; -PROPOFOL IV EMULSION 10 MG/ML 20 ML VIAL IV ONE; -SODIUM CHLORIDE 0.9% 500ML 500 ML IV ONE
--- NOTE | 2017-05-11 13:00 | DIAGNOSTIC IMAGING REPORT ---
GI SERIES W/AIR ROUTINE CLINICAL HISTORY: HIATAL Hernia, pre SURGERYpreoperative evaluation COMPARISON STUDY: None FLUOROSCOPY TIME: 2.2 minutes. FINDINGS: Patient initiated swallow function well. Esophageal motility is diminished throughout. There is a fixed hiatal hernia. There is moderate gastroesophageal reflux. Esophageal emptying is poor. Potential early achalasia is considered. Size and configuration stomach are normal. Duodenal bulb fills well. Duodenal sweep is unremarkable. IMPRESSION: 1. Markedly diminished esophageal motility with mild esophageal dilatation. 2. Possibly of developing achalasia is considered. 3. Hiatal hernia with moderate gastroesophageal reflux. 4. Study is otherwise negative. Electronically signed by: Janak Nelson M.D. 05/11/2017 12:59 PM Dictated Date/Time: 05/11/2017 12:57 PM
== END ==
LOC: C.RAD 12:12
PROVIDERS: ATTEND Surgery
DX: K44.9 Diaphragmatic hernia without obstruction or gangrene (principal)

== ENCOUNTER → 2018-01-08 | Outpatient (CLI) | payer OTHER ==
[~2018-01-08] MED LIST changes: -ANTIBIO; -ANTIBIOTIC PO; -ASPCH81X PO; +ASPI81TA28 PO; -CLOP1TAB15 PO; +CLOP1TAB5 PO; +CYCL5TAB PO; -FLUO20CA20 PO; -GABA-113 PO; -HYDR-3419 PO; -HYDR-5688 PO; +LORA-554 PO; -NCDT21 TD; -PRED-301 PO; -PRED10TA PO; +PREG225C PO; +PRLSR20 PO; -RANI300T2 PO; +TRAZ1TAB52 PO; +VITAMIN B12 IM
--- NOTE | 2018-01-08 10:31 | DIAGNOSTIC IMAGING REPORT ---
GI SERIES W/O KUB CLINICAL HISTORY: N18.3,J44.1,F32.1,K22.70,K21.0,K31.84,F17.200heartburn and reflux. COMPARISON STUDY: April 2017 FLUOROSCOPY TIME: 1.8 minutes. NUMBER OF FLUOROSCOPIC IMAGES: 21 FINDINGS: The patient swallowed barium without difficulty. There is esophageal dysmotility. There are postsurgical changes of an interval gastroplasty. There is focal irregularity involving the gastric cardia. Given the history, this is likely secondary to interval surgery. If there is clinical concern the presence of a mucosal lesion, then endoscopic correlation should be considered in follow-up. There are retained gastric secretions within the stomach. There is no gastric outlet obstruction. The duodenal bulb appeared normal. IMPRESSION: 1. Postsurgical changes of an interval [place] gastroplasty 2. Significant dysmotility 3. Focal fold irregularity involving the gastric cardia. Given the clinical history this likely is secondary to interval surgery. Endoscopic correlation could be obtained as deemed clinically indicated. Electronically signed by: Adrien Hebert M.D. 01/08/2018 10:29 AM Dictated Date/Time: 01/08/2018 10:23 AM
== END | disposition home or self-care (01) ==
LOC: C.RAD 09:55
PROVIDERS: ATTEND Surgery
DX: K22.4 Dyskinesia of esophagus (principal); K31.89 Other diseases of stomach and duodenum; N18.3 Chronic kidney disease, stage 3 (moderate); J44.1 Chronic obstructive pulmonary disease with (acute) exacerbation; F32.1 Major depressive disorder, single episode, moderate; K22.70 Barrett's esophagus without dysplasia; K21.0 Gastro-esophageal reflux disease with esophagitis; K31.84 Gastroparesis; F17.200 Nicotine dependence, unspecified, uncomplicated; I12.9 Hypertensive chronic kidney disease with stage 1 through stage 4 chronic kidney disease, or unspecified chronic kidney disease

== ENCOUNTER → 2018-01-13 | Day surgery (SDC) | payer OTHER ==
[2018-01-11 13:23] VITALS: Ht 165.1 cm; Wt 77.0 kg
[~2018-01-13] VITALS: Ht 165.1 cm; Wt 77.0 kg
[~2018-01-13] MED LIST changes: +LIDOCAINE HCL 2% 2 ML VIAL (20MG/ML) ONE; -LORA10CA2 PO; -MONT1TAB3 PO; -PREG1CAP70 PO; +PROPOFOL IV EMULSION 10 MG/ML 20 ML VIAL IV ONE; -RXC5 PO; +SODIUM CHLORIDE 0.9% 500ML 500 ML IV ONE; -TRAZ100T29 PO
[2018-01-13 12:18] VITALS: TEMP 36.8
--- NOTE | 2018-01-13 13:16 | Endo History and Physical ---
History & Physical Date of Service: Jan 13, 2018. Chief Complaint: Reccurrent hiatel hernia Referring Physician: Dr. Valles History of Present Illness 67 yo presenting for EGD for refractory GERD Past Medical History Angioplasty/Stent, Arthritis, Asthma, Anxiety, Reflux, High Cholesterol, CABG, Hypertension, COPD, CVA/TIA, Depression, [place] Past Surgical History Hx Cardiac Surgery: Yes (HEART CATH (A COUPLE), STENT X1; CABG X2 VESSELS) Hx Internal Defibrillator: No Hx Pacemaker: No Hx Abdominal Surgery: Yes (PARTIAL HYSTER AND THEN FULL, LAURENT) Hx of Implantable Prosthesis: No Hx Post-Op Nausea and Vomiting: No Hx Cancer Surgery: No Hx Thoracic Surgery: No Hx Orthopedic: Yes (CERVICAL SURGERY 10/30/2017 (FULL ROM), LT LISANDRO, RT/LT PARTIAL REPLACEMENTS) Hx Urinary Tract Surgery: No Family History None Social History Smoking Status: Current Every Day Smoker Hx Substance Use: No Hx Alcohol Use: No Allergies Coded Allergies: Sumatriptan (Verified Adverse Reaction, Unknown, "CAN'T TAKE BECAUSE OF HER HEART", 01/13/18) Varenicline (Verified Adverse Reaction, Unknown, "CAN'T TAKE BECAUSE OF HER HEART", 01/13/18) Current Medications Reported Home Medications Medications Dose Route/Sig Max Daily Dose Days Date Category [Vitamin B12] 1 Dose IM MONTHLY 01/11/18 Reported Plavix (Clopidogrel Bisulfate) 75 Mg Tab 75 Mg PO QAM 01/11/18 Reported Allergy Relief (Loratadine) 10 Mg Tab 1 Tab PO QAM 01/11/18 Reported Aspirin Ec (Aspirin) 81 Mg Tab 81 Mg PO QAM 01/11/18 Reported Prilosec (Omeprazole) 20 Mg Capcr 20 Mg PO QAM 01/11/18 Reported Flexeril (Cyclobenzaprine Hcl) 5 Mg Tab 5 Mg PO TID 01/11/18 Reported Lyrica (Pregabalin) 225 Mg Cap 225 Mg PO BID 01/11/18 Reported Desyrel (Trazodone Hcl) 150 Mg Tab 150 Mg PO HS 01/11/18 Reported Cymbalta (Duloxetine Hcl) 60 Mg Cap 60 Mg PO QAM 10/30/17 Reported Reglan (Metoclopramide HCl) 10 Mg Tab 5 Mg PO ACHS 10/30/17 Reported Prilosec (Omeprazole) 40 Mg Cap 40 Mg PO QAM 04/09/17 Reported Iron (Ferrous Sulfate) 325 Mg Tab 1 Tab PO QAM 04/09/17 Reported Flonase Allergy Relief (Fluticasone Propionate (Nasal)) 50 Mcg/Act Spr 1 [place] NA BID 03/23/17 Reported Prinivil (Lisinopril) 5 Mg Tab 5 Mg PO QAM 03/23/17 Reported Imdur Ext Rel (Isosorbide Mononitrate) 30 Mg Ertab 1 Tab PO QAM 03/23/17 Reported Lipitor (Atorvastatin) 80 Mg Tab 1 Tab PO HS 03/23/17 Reported Toprol Xl (Metoprolol Succinate) 25 Mg Tab 1 Tab PO QAM 03/23/17 Reported Flovent Diskus (Fluticasone Propionate (Inhala) 100 Mcg/Blist Aer 2 Puffs INH BID 03/23/17 Reported Spiriva Handihaler (Tiotropium [place]) 30 Puff/540 Mcg Aerp 1 Cap INH QAM 03/16/17 Reported Proair Respiclick (Albuterol Sulfate) 108 Mcg/Act Aer 2 Puffs INH Q4H PRN 03/16/17 Reported Nitrostat (Nitroglycerin) 0.4 Mg Tab 0.4 Mg UT UD PRN 01/15/17 Reported Symbicort 80/4.5 Inhaler (Budesonide/Formoterol Fumarate) Aero 2 Puffs INH BID 06/03/16 Reported Oxygen Gas 2 Liters NA CONTINOUS 01/09/16 Reported Vital Signs Weight (Kilograms): 77.05 Height (Feet): 5 Height (Inches): 5 Date Time Temp Pulse Resp B/P (MAP) Pulse Ox O2 Delivery O2 Flow Rate FiO2 01/13/18 12:18 36.8 71 20 112/56 (74) 95 Room Air Physical Exam General Appearance: WD/WN, no apparent distress Respiratory/Chest: Auscultation: breath sounds normal, CTA except as noted Cardiovascular: Heart Auscultation: RRR, normal S1, normal S2 Abdomen: Inspection & Palpation: soft, non-distended Assessment and Plan 67 yo presenting for refractory GERD
--- NOTE | 2018-01-13 13:47 | GI REPORT ---
Procedure Date: 01/13/2018 1:22 PM Procedure: Upper GI endoscopy Indications: Heartburn Medicines: Monitored Anesthesia Care Complications: No immediate complications. Estimated blood loss: None. Estimated Blood Loss: Estimated blood loss: none. Procedure: Pre-Anesthesia Assessment: - Pre-Anesthesia Assessment: - Prior to the procedure, a History and Physical was performed, and patient medications, allergies and sensitivities were reviewed. The patient's tolerance of previous anesthesia was reviewed. Please see [place] for complete details. - The risks and benefits of the procedure and the sedation options and risks were discussed with the patient. All questions were answered and informed consent was obtained. - Patient identification and proposed procedure were verified prior to the procedure by the physician and the nurse. The procedure was verified in the pre-procedure area in the procedure room. After obtaining informed consent, the endoscope was passed carefully and meticuously under direct vision and only advanced when the lumen was clearly identified, C02 insuflation was utilized throughout the entirity of the procedure. Throughout the procedure, the patient's blood pressure, pulse, and oxygen saturations were monitored continuously. After obtaining informed consent, the endoscope was passed under direct vision. Throughout the procedure, the patient's blood pressure, pulse, and oxygen saturations were monitored continuously. The scope was introduced through the mouth, and advanced to the body of the stomach. The upper GI endoscopy was accomplished without difficulty. The patient tolerated the procedure well. Findings: LA Grade A (one or more mucosal breaks less than 5 mm, not extending between tops of 2 mucosal folds) esophagitis with no bleeding was found. A large amount of food (residue) was found in the gastric body. Therefore procedure aborted. Impression: - LA Grade A reflux esophagitis. - A large amount of food (residue) in the stomach. - No specimens collected. Recommendation: - Discharge patient to home (with escort). - Gastroparesis diet. - Refer to a dietitian at appointment to be scheduled to discuss Gastroparesis. - Repeat Study with liquids prior x 24 hrs. - Ok to increase prilosec to twice daily. Mino Lea MD 01/13/2018 1:46:49 PM This report has been signed electronically. Note Initiated On: 01/13/2018 1:22 PM I attest to the content of the Intraoperative Record and orders documented therein, exceptions below
--- NOTE | 2018-01-13 13:49 | Anesthesiology Progress Note ---
Anesthesia Post Op Note Date & Time Jan 13, 2018 at 13:48 Vital Signs Pain Intensity: 0 Vital Signs Past 12 Hours Date Time Temp Pulse Resp B/P (MAP) Pulse Ox O2 Delivery O2 Flow Rate FiO2 01/13/18 13:39 73 20 113/67 (82) 98 Room Air 01/13/18 12:18 36.8 71 20 112/56 (74) 95 Room Air Notes Mental Status: alert / awake / arousable, participated in evaluation Pt Amnestic to Procedure: Yes Nausea / Vomiting: adequately controlled Pain: adequately controlled Airway Patency, RR, SpO2: stable & adequate BP & HR: stable & adequate Hydration State: stable & adequate Anesthetic Complications: no major complications apparent Food discovered in stomach on endoscopic evaluation. No evidence for intraoperative aspiration or during emergence. Doing well in pacu.
--- NOTE | 2018-01-13 13:59 | Discharge Instructions ---
Endoscopy Patient Instructions Date / Procedure(s) Performed Jan 13, 2018. EGD Allergy Information Coded Allergies: Sumatriptan (Verified Adverse Reaction, Unknown, "CAN'T TAKE BECAUSE OF HER HEART", 01/13/18) Varenicline (Verified Adverse Reaction, Unknown, "CAN'T TAKE BECAUSE OF HER HEART", 01/13/18) Discharge Date / Findings Jan 13, 2018. well. Findings: LA Grade A (one or more mucosal breaks less than 5 mm, not extending between tops of 2 mucosal folds) esophagitis with no bleeding was found. A large amount of food (residue) was found in the gastric body. Therefore procedure aborted. Impression: - LA Grade A reflux esophagitis. - A large amount of food (residue) in the stomach. - No specimens collected. Recommendation: - Discharge patient to home (with escort). - Gastroparesis diet. - Refer to a dietitian at appointment to be scheduled to discuss Gastroparesis. - Repeat Study with liquids prior x 24 hrs. - Ok to increase prilosec to twice daily. Medication Instructions Stopped Medication(s): Plavix stopped 01-06-18. Provider Instructions Activity Restrictions - No exercising or heavy lifting for 24 hours. - Do not drink alcohol the day of the procedure. - Do not drive a car or operate machinery until the day after the procedure. - Do not make any important decisions or sign important papers in 24 hours after the procedure. Following Day: - Return to full activity which may include returning to work/school. Diet Start your diet with liquids and light foods (jello, soup, juice, toast). Then eat your usual diet if not nauseated. Treatment For Common After Affects For mild abdominal pain, bloating, or excessive gas: - Rest - Eat lightly - Lie on right side Follow-Up Information Follow-up with Dr. Valles as scheduled Anesthesia Information What You Should Know You have had a procedure that required some medicine to reduce anxiety and discomfort. This treatment is called moderate sedation. After receiving the treatment, you may be sleepy, but you will be able to breathe on your own. The effects of the treatment may last for several hours. Follow these instructions along with Activity/Diet recommendations noted above: * Do NOT do anything where dizziness or clumsiness would be dangerous. * Rest quietly at home today, then you can be up and about tomorrow. * Have a responsible person stay with you the rest of today. * You may have had an I.V. today. If so, you may take the dressing off later today. Recommendations Call your doctor if: * Trouble breathing * Continuous vomiting for more than 24 hours * Temperature above 101 degrees * Severe abdominal pain or bloating * Pain not relieved by pain medicine ordered * There is increased drainage or redness from any incision * A large amount of rectal bleeding greater than 2-3 tablespoons. (If you had a polyp/s removed or have hemorrhoids, a small amount of blood - from the rectum is to be expected.) * You have any unanswered questions or concerns. IN THE EVENT OF A SERIOUS EMERGENCY, GO TO THE NEAREST EMERGENCY ROOM Your discharge instructions were prepared by provider Mino Lea. Patient Instructions Signature Page Laury Jesus Patient (or Guardian) Signature/Date: I have read and understand the instructions given to me by my caregivers. Caregiver/RN/Doctor Signature/Date: The above-named patient and/or guardian has received patient instructions on this date. + Original Patient Signature Page (only) stays with chart. Please make copy for patient.
[2018-01-13 14:05] VITALS: BP 130/79; PULSE 77; O2SAT 98
== END | disposition home or self-care (01) ==
LOC: C.GI 11:33
PROVIDERS: ATTEND Internal Medicine
DX: R12 Heartburn (principal); K21.0 Gastro-esophageal reflux disease with esophagitis; K44.9 Diaphragmatic hernia without obstruction or gangrene; J44.9 Chronic obstructive pulmonary disease, unspecified; I25.2 Old myocardial infarction; I63.9 Cerebral infarction, unspecified; E78.00 Pure hypercholesterolemia, unspecified; I10 Essential (primary) hypertension; Z90.711 Acquired absence of uterus with remaining cervical stump; F17.200 Nicotine dependence, unspecified, uncomplicated; Z88.9 Allergy status to unspecified drugs, medicaments and biological substances; Z95.1 Presence of aortocoronary bypass graft; Z96.642 Presence of left artificial hip joint; Z98.890 Other specified postprocedural states; Z79.82 Long term (current) use of aspirin; Z79.899 Other long term (current) drug therapy; Z79.02 Long term (current) use of antithrombotics/antiplatelets

== ENCOUNTER 2019-12-06 09:52 | Inpatient (IN) ==
--- NOTE | 2019-11-02 16:14 | PAT Medication Instructions ---
Medication Instructions Date of Service November 02, 2019 Home Medications acetaminophen [Tylenol Extra Strength] 2 tab PO Q6H PRN atorvastatin 80 mg PO QAM cetirizine [Allergy Relief (cetirizine)] 10 mg PO QAM cholecalciferol (vitamin D3) [Vitamin D3] 1,000 unit PO DAILY clopidogrel [Plavix] 75 mg PO QAM cyanocobalamin (vitamin B-12) 1,000 mcg SUBLINGUAL QAM duloxetine [Cymbalta] 30 mg PO QAM ferrous sulfate [Iron (ferrous sulfate)] 325 mg PO DAILY magnesium oxide 400 mg PO HS metoprolol succinate 25 mg PO QAM trazodone 150 mg PO HS albuterol sulfate 90 mcg/actuation aerosol inhaler 1 - 2 puff INHALATION Q4H PRN apixaban 5 mg tablet 5 mg PO BID cyclobenzaprine 5 mg tablet 5 mg PO Q8H PRN fluticasone propionate 220 mcg/actuation HFA aerosol inhaler 1 puffs INHALATION BID gabapentin 300 mg capsule 300 mg PO TID loratadine 10 mg tablet 10 mg PO DAILY lorazepam 0.5 mg tablet 0.5 mg PO TID PRN metoclopramide HCl 10 mg tablet 10 mg PO QID PRN nitroglycerin 0.4 mg sublingual tablet 0.4 mg SL UD PRN omeprazole 20 mg capsule,delayed release 20 mg PO BID pantoprazole 40 mg tablet,delayed release 40 mg PO DAILY pregabalin 225 mg capsule 225 mg PO BID tiotropium bromide 18 mcg capsule with inhalation device 1 cap INHALATION DAILY puffs triamterene 37.5 mg-hydrochlorothiazide 25 mg tablet 1 tab PO .COMPLEX PRN Continue as directed nitroglycerin 0.4 mg sublingual tablet 0.4 mg SL UD PRN (if needed) ASK your prescriber and surgeon clopidogrel [Plavix] 75 mg PO QAM apixaban 5 mg tablet 5 mg PO BID DO NOT take the morning of surgery cetirizine [Allergy Relief (cetirizine)] 10 mg PO QAM cholecalciferol (vitamin D3) [Vitamin D3] 1,000 unit PO DAILY cyanocobalamin (vitamin B-12) 1,000 mcg SUBLINGUAL QAM ferrous sulfate [Iron (ferrous sulfate)] 325 mg PO DAILY cyclobenzaprine 5 mg tablet 5 mg PO Q8H PRN loratadine 10 mg tablet 10 mg PO DAILY metoclopramide HCl 10 mg tablet 10 mg PO QID PRN triamterene 37.5 mg-hydrochlorothiazide 25 mg tablet 1 tab PO .COMPLEX PRN Take morning of surgery With a small sip of water, OTHERWISE NOTHING TO EAT OR DRINK AFTER MIDNIGHT: acetaminophen [Tylenol Extra Strength] 2 tab PO Q6H PRN (okay to take up to 4 hours prior to surgery if needed) atorvastatin 80 mg PO QAM duloxetine [Cymbalta] 30 mg PO QAM metoprolol succinate 25 mg PO QAM albuterol sulfate 90 mcg/actuation aerosol inhaler 1 - 2 puff INHALATION Q4H PRN (use if needed; please bring with you to hospital day of surgery if possible) fluticasone propionate 220 mcg/actuation HFA aerosol inhaler 1 puffs INHALATION BID gabapentin 300 mg capsule 300 mg PO TID lorazepam 0.5 mg tablet 0.5 mg PO TID PRN (if needed) omeprazole 20 mg capsule,delayed release 20 mg PO BID pantoprazole 40 mg tablet,delayed release 40 mg PO DAILY pregabalin 225 mg capsule 225 mg PO BID tiotropium bromide 18 mcg capsule with inhalation device 1 cap INHALATION DAILY puffs Take evening before surgery acetaminophen [Tylenol Extra Strength] 2 tab PO Q6H PRN (if needed) magnesium oxide 400 mg PO HS trazodone 150 mg PO HS albuterol sulfate 90 mcg/actuation aerosol inhaler 1 - 2 puff INHALATION Q4H PRN (if needed) cyclobenzaprine 5 mg tablet 5 mg PO Q8H PRN (if needed) fluticasone propionate 220 mcg/actuation HFA aerosol inhaler 1 puffs INHALATION BID gabapentin 300 mg capsule 300 mg PO TID lorazepam 0.5 mg tablet 0.5 mg PO TID PRN (if needed) metoclopramide HCl 10 mg tablet 10 mg PO QID PRN (if needed) omeprazole 20 mg capsule,delayed release 20 mg PO BID pregabalin 225 mg capsule 225 mg PO BID triamterene 37.5 mg-hydrochlorothiazide 25 mg tablet 1 tab PO .COMPLEX PRN (if n eeded) Other Notes If you have any questions please call us at [phone] or [phone] or [phone] or [phone]
--- NOTE | 2019-11-03 14:30 | Anesthesiology Consultation ---
Date of Service November 03, 2019 Assessment & Plan (1) Encounter for pre-operative examination: - Cardiology addendum: 10/24/19: "Based on my visit with the patient in June she would be an acceptable cardiac risk to undergo surgery. This is provided that she has had no significant change in her clinical condition since I last saw her." [Patient subsequently seen at [facility] 11/03/19 and voiced no acute cardiopulmonary complaints/changes to clinical status since last cardiology office visit]. - Apixaban/plavix instructions per surgeon/prescriber - Possible difficult intubation: d/t cervical extension s/p ACDF* Chart Review Chart Review: Acceptable Risk for Surgery and Patient seen in Pre Admission Testing Teaching & Discussion Pre-Anesthesia Teaching/Discussion Notes: Instructed NPO after midnight before surgery,except medications with 15 cc of water. Medication instructions provided according to the [facility] guidelines. History Surgery Operation Date: 12/06/19 12:45 Proposed Procedures p L4-L5 Decompression and Fusion, L5-S1 Hardware Removal, Spinal Cord Monitoring - Bret Miller, Height/Weight Height: 5 ft 5 in Weight: 81.3 kg Allergies Allergy/AdvReac Type Severity Reaction Status Date / Time sumatriptan AdvReac Unknown advised to Verified 11/03/19 14:11 avoid d/t hx heart surgery varenicline AdvReac Unknown advised to Verified 11/03/19 14:11 avoid d/t hx heart surgery Medications Home Medications Medication Instructions Recorded Confirmed Last Taken acetaminophen [Tylenol Extra 2 tab PO Q6H PRN 03/22/19 10/31/19 03/27/19 14:00 Strength] atorvastatin 80 mg PO QAM 03/22/19 10/31/19 03/27/19 09:00 cetirizine [Allergy Relief 10 mg PO QAM 03/22/19 10/31/19 03/27/19 09:00 (cetirizine)] cholecalciferol (vitamin D3) 1,000 unit PO DAILY 03/22/19 10/31/19 03/27/19 09:00 [Vitamin D3] clopidogrel [Plavix] 75 mg PO QAM 03/22/19 10/31/19 03/21/19 cyanocobalamin (vitamin B-12) 1,000 mcg SUBLINGUAL QAM 03/22/19 10/31/19 03/27/19 09:00 duloxetine [Cymbalta] 30 mg PO QAM 03/22/19 10/31/19 03/27/19 09:00 ferrous sulfate [Iron (ferrous 325 mg PO DAILY 03/22/19 10/31/19 03/27/19 09:00 sulfate)] magnesium oxide 400 mg PO 03/22/19 10/31/19 03/27/19 09:00 metoprolol succinate 25 mg PO QAM 03/22/19 10/31/19 03/28/19 06:30 trazodone 150 mg PO HS 03/22/19 10/31/19 03/27/19 21:00 albuterol sulfate 90 mcg/actuation 1 - 2 puff INHALATION Q4H PRN 06/24/19 10/31/19 Unknown aerosol inhaler apixaban 5 mg tablet 5 mg PO BID 06/24/19 10/31/19 Unknown cyclobenzaprine 5 mg tablet 5 mg PO Q8H PRN tab 06/24/19 10/31/19 Unknown fluticasone propionate 220 1 puffs INHALATION BID 06/24/19 10/31/19 Unknown mcg/actuation HFA aerosol inhaler gabapentin 300 mg capsule 300 mg PO TID 06/24/19 10/31/19 Unknown loratadine 10 mg tablet 10 mg PO DAILY tab 06/24/19 10/31/19 Unknown lorazepam 0.5 mg tablet 0.5 mg PO TID PRN tab 06/24/19 10/31/19 Unknown metoclopramide HCl 10 mg tablet 10 mg PO QID PRN tab 06/24/19 10/31/19 Unknown nitroglycerin 0.4 mg sublingual 0.4 mg SL UD PRN #1 tab 06/24/19 10/31/19 Unknown tablet omeprazole 20 mg capsule,delayed 20 mg PO BID cap 06/24/19 10/31/19 Unknown release pantoprazole 40 mg tablet,delayed 40 mg PO DAILY tab 06/24/19 10/31/19 Unknown release pregabalin 225 mg capsule 225 mg PO BID cap 06/24/19 10/31/19 Unknown tiotropium bromide 18 mcg capsule 1 cap INHALATION DAILY puffs 06/24/19 10/31/19 Unknown with inhalation device triamterene 37.5 1 tab PO .COMPLEX PRN tab 06/24/19 10/31/19 Unknown mg-hydrochlorothiazide 25 mg tablet Past Medical History Medical History Anxiety Barretts esophagus Carotid artery disease Chronic obstructive pulmonary disease CKD (chronic kidney disease), stage III (Inactive) Coronary artery disease CABG x 2 (2009) cardiac stent x 1 (2014 - LCx) Degenerative disc disease Depression GERD (gastroesophageal reflux disease) controlled Hyperlipidemia Hypertension Learning disability cannot spell/limited reading skills Migraine Myocardial Infarction "silent" MO- remote/several years ago Osteoarthritis PAD (peripheral artery disease) <50% aorta-iliac system stenosis per 09/26/19 duplex Paroxysmal atrial fibrillation Peripheral neuropathy LLE PVD (peripheral vascular disease) Stroke "silent" stroke noted incidentally on imaging several years ago= no residual issues Exercise / Class Metabolic Activity III < 4 Walking/Shop/Light housework Past Family History Family History Father Family history of diabetes mellitus Past Surgical History Surgical History Fusion of spine LUMBAR ACDF C5-C7: 10/30/17: Grade view 1, MAC#3, ETT 7.0 at [facility] History of bilateral tubal ligation History of cardiac cath CABG x 2 (2009) cardiac stent x 1 (2014 - LCx) History of cholecystectomy History of colonoscopy History of esophagogastroduodenoscopy (EGD) History of Lauren fundoplication History of tonsillectomy History of tooth extraction History of total abdominal hysterectomy and bilateral salpingo-oophorectomy History of total hip arthroplasty LEFT History of total knee replacement RT/LEFT Past Anesthesia History No Hx of Anesthesia Complications and No Family Hx of Anesthesia Complications History of PONV No Hx of PONV and No Hx of Motion Sickness Social History Smoking Status: Current every day smoker tobacco type: cigarettes Smoking cigarettes per day: 10 CIG DAILY (TOBACCO USE X 40+ YEARS AGO) Do You Dip or Chew Tobacco: No Hx Alcohol Use: No Hx Substance Use: No substance use type: does not use Review of Systems Reflux controlled. Patient denies chest pain, shortness of breath, cough, wheezing, palpitations. Physical Exam Vital Signs VITALS BP 120/79 P 91 TEMP 98.4 SP02 94%RA RESP 16 PHYSICAL Decreased cervical extension s/p ACDF* Full TMJ range of motion. TMD 3 finger breaths Mallampati Score 2 Dentition: edentulous Lungs: + rhonchi Cardiac: regular rate and rhythm, no murmurs noted Spine: normal Carotid arteries: negative bruit Extremities: no edema Testing Laboratory Results 11/03/19 14:06 11/03/19 14:49 PT 10.5 Seconds (9.0-12.0) 11/03/19 14:06 INR 1.0 (0.9-1.1) 11/03/19 14:06 APTT 33.6 Seconds (21.0-31.0) H 11/03/19 14:06 Urine Color Yellow 11/03/19 14:06 Urine Appearance Clear (Clear) 11/03/19 14:06 Urine pH 5.5 (4.5-7.5) 11/03/19 14:06 Ur Specific Cook 1.015 (1.000-1.030) 11/03/19 14:06 Urine Protein Negative (Negative) 11/03/19 14:06 Urine Glucose (UA) Negative (Negative) 11/03/19 14:06 Urine Ketones Negative (Negative) 11/03/19 14:06 Urine Nitrite Negative (Negative) 11/03/19 14:06 Ur Leukocyte Esterase Trace (Negative) H 11/03/19 14:06 Urine WBC (Auto) 5-10 /hpf (0-5) H 11/03/19 14:06 Urine RBC (Auto) 0-4 /hpf (0-4) 11/03/19 14:06 U Hyaline Cast (Auto) 0 /lpf (0-5) 11/03/19 14:06 U Epithel Cells (Auto) >30 /lpf (0-5) H 11/03/19 14:06 Urine Bacteria (Auto) Negative (Negative) 11/03/19 14:06 Blood Type O Positive 11/03/19 14:49 Antibody Screen NEGATIVE 11/03/19 14:49 Electrocardiogram Date: 10/26/19 NSr at 89bpm. NS STA. Chest X-Ray Date: 11/03/19 There are stable areas of presumed pleural scarring. There are linear opacities at the right mid and lower lung zone, likely representing atelectasis/scarring. These remain similar to the preceding study. There is no failure. There is no evidence of lobar consolidation.[There are postsurgical changes of midline sternotomy. There are postsurgical changes present within the cervical spine. No acute findings. Echocardiogram Date: 08/24/17 EF 55-59%. Grade I DD. No significant valvular disease. Stress Test Date: 03/10/17 Type: nuclear Small, mild largely reversible perfusion defect involving the mid interolateral and apical inferior chong-- suspect this represents artifact. Less potentially r epresents a small amount of single vessel ischemia involving possible PDA and posterolateral branch. EF 40% (visually left ventricular function appears normal with septal dyskinesis consistent with postoperative state). Nondiagnostic Lexiscan EKG with only occasional PVC's. Stress test was again reviewed by cardiology at 07/01/19 office visit which again felt stress test perfusion defect represented artifact. Per cardiology addendum: 10/24/19: "Based on my visit with the patient in June she would be an acceptable cardiac risk to undergo surgery. This is provided that she has had no significant change in her clinical condition since I last saw her." Cardiac Catheterization Date: 02/22/15 Dominant: Right Left Main (% Stenosis): Normal LAD (% Stenosis): Proximal (50) D1 (% Stenosis): Normal Circumflex (% Stenosis): Ostial (70), Proximal (70) OM1 (% Stenosis): Normal RCA (% Stenosis): Proximal (100) Grafts - RCA (%): Normal Grafts - Ramus (%): Normal *Resolute 2.5x8mm THOMAS to LCx* Other Testing Aorta-Iliac arterial duplex: 09/26/19: <50% aorta-iliac system stenosis per 09/26/19 duplex. No evidence of aneurysm in the abdominal aorta or common iliac arteries bilaterally. No significant change compared with previous exam done 06/18/15 per report. Carotid duplex: 07/01/19: 50-60% b/l ICA stenosis. Antegrade flow in the vertebral arteries b/l.
--- NOTE | 2019-11-03 15:19 | XRay Report ---
XR chest Pre-admission PA/Lat CLINICAL HISTORY: Preoperative chest COMPARISON STUDY: 03/23/2017, 06/03/2016 FINDINGS: There are stable areas of presumed pleural scarring. There are linear opacities at the righ t mid and lower lung zone, likely representing atelectasis/scarring. These remain similar to the prec eding study. There is no failure. There is no evidence of lobar consolidation.[There are postsurgical changes of midline sternotomy. There are postsurgical changes present within the cervical spine. IMPRESSION: 1. Areas of chronic pleural-parenchymal scarring. No acute findings. Electronically signed by: Adrien Hebert M.D. 11/03/2019 3:18 PM
[2019-11-03 16:04] LABS: Basophils # (auto) 0.02 K/uL (0-0.2); Basophils % (auto) 0.2 %; Eosinophils # (auto) 0.15 K/uL (0-0.5); Eosinophils % (auto) 1.5 %; Hematocrit (blood only) 39.9 % (37-47); Hemoglobin 12.9 g/dL (12.0-16.0); Immature Granulocytes # (auto) 0.03 K/uL (0.00-0.02); Immature Granulocytes % (auto) 0.3 %; Lymphocytes # (auto) 3.23 K/uL (1.2-3.4); Lymphocytes % (auto) 31.8 %; Mean Corpuscular Hgb Conc 32.3 g/dL (32-36); Mean Corpuscular Volume 95.9 fL (80-100); Monocytes # (auto) 0.83 K/uL (0.11-0.59); Monocytes % (auto) 8.2 %; Neutrophils # (auto) 5.91 K/uL (1.4-6.5); Platelet Count 369 K/uL (130-400); RDW Coefficient of Variation 15.3 % (11.5-14.5); RDW Standard Deviation 53.8 fL (36.4-46.3); Red Blood Count 4.16 M/uL (4.2-5.4); White Blood Count 10.17 K/uL (4.8-10.8)
[2019-11-03 16:14] LABS: BUN Creatinine Ratio 9.2 (10-20); Calcium 8.7 mg/dl (8.5-10.1); Creatinine Clr Calc Pharmacy 60.8 ml/min; Est GFR (African American) 73.6; Est GFR (Non-African American) 63.5
[2019-11-03 16:17] LABS: Partial Thromboplastin Ratio 1.2; Partial Thromboplastin Time 33.6 Seconds (21.0-31.0); Prothrombin Time 10.5 Seconds (9.0-12.0)
[2019-11-03 16:23] LABS: Appearance Urine Clear (Clear); Bacteria Urine Automated Negative (Negative); Bilirubin Urine Negative (Negative); Blood Urine Negative (Negative); Cast Urine Automated 0 /lpf (0-5); Color Urine Yellow; Epithelial Cell Urine Auto >30 /lpf (0-5); Glucose Urine UA Negative (Negative); Ketones Urine Negative (Negative); Leukocyte Esterase Urine Trace (Negative); Nitrite Urine Negative (Negative); Protein Urine Negative (Negative); RBC Urine Automated 0-4 /hpf (0-4); Specific Gravity Urine 1.015 (1.000-1.030); Urobilinogen Urine Negative (Negative); pH Urine 5.5 (4.5-7.5)
[~2019-12-06 09:52] MED LIST changes: +ACETAMINOPHEN 500 MG TAB PO SCH; -ALBU18002 INH; -ASPI81TA28 PO; -ATOR80TA PO; +CEFAZOLIN 2000MG 2,000 MG/15 ML SYR IV SCH; -CLOP1TAB5 PO; -CYCL5TAB PO; +CeleBREX 200 MG CAP PO SCH; -DULO60CA44 PO; -FERR1TAB23 PO; -FLUT0.15; -FLUT1AER5 INH; +GABAPENTIN 300 MG CAP PO SCH; -IPRASOL4 INH; -ISOS30TA3 PO; -LIDOCAINE HCL 2% 2 ML VIAL (20MG/ML) ONE; -LISI-729 PO; -LORA-554 PO; +LR 15ML/HR IV SCH; -METO-157 PO; -METO-478 PO; -NTRGSL/4 UT; -OMEP40CA41 PO; -OXGN; -PREG225C PO; -PRLSR20 PO; -PROPOFOL IV EMULSION 10 MG/ML 20 ML VIAL IV ONE; -SODIUM CHLORIDE 0.9% 500ML 500 ML IV ONE; -SPRIN/30 INH; -SYMIN/8045 INH; -TRAZ1TAB52 PO; -VITAMIN B12 IM
[2019-12-06] MEDS ORDERED: fentaNYL citrate 100 MCG/2 ML VIAL IV PRN (10:06)
[2019-12-06] MEDS ORDERED: ONDANSETRON INJ 2 MG/ML 2 ML VIAL IV PRN ×2 (10:06→16:19)
[2019-12-06] MEDS ORDERED: PHENYLEPHRINE 100MCG/ML 5ML SYR IV PRN (10:06)
[2019-12-06] MEDS ORDERED: MEPERIDINE HCL 25 MG/ML CARP IV PRN (10:06)
[2019-12-06] MEDS ORDERED: ePHEDrine sulfate 50 MG/ML AMP IV PRN (10:06)
[2019-12-06] MEDS ORDERED: ATROPINE SULFATE 0.1 MG/ML 10ML SYR IV PRN (10:06)
[2019-12-06] MEDS ORDERED: LABETALOL HCL IV 5 MG/ML 20ML IV PRN (10:06)
[2019-12-06] MEDS ORDERED: PROPOFOL IV EMULSION 10 MG/ML 20 ML VIAL IV ONE (11:04)
[2019-12-06] MEDS ORDERED: ONDANSETRON INJ 2 MG/ML 2 ML VIAL ONE (11:04)
[2019-12-06] MEDS ORDERED: fentaNYL citrate 100 MCG/2 ML VIAL ONE ×3 (11:04→15:10)
[2019-12-06] MEDS ORDERED: LIDOCAINE HCL 2% 2 ML VIAL/AMP(20MG/ML) INFIL ONE (11:04)
[2019-12-06] MEDS ORDERED: ROCURONIUM BROMIDE 10 MG/ML 5 ML VIAL ONE (11:04)
[2019-12-06] MEDS ORDERED: MIDAZOLAM HCL 1 MG/ML 2ML VIAL ONE (11:05)
--- NOTE | 2019-12-06 12:00 | History & Physical Bridge Note ---
Date of Service December 06, 2019 History & Physical Bridge Note I have examined the patient, reviewed the History & Physical and in the interval since the performance of the History & Physical I have noted the following changes of clinical significance: no changes noted
--- NOTE | 2019-12-06 12:01 | History & Physical Report ---
Date of Service December 06, 2019 Assessment & Plan (1) Neurogenic claudication due to lumbar spinal stenosis: L4-L5 decompression and fusion L5-S1 hardware removal Present on Admission?: Yes History of Present Illness Chief Complaint: Back and leg pain Primary Care Provider: Juliane Oconnor, DO This is a 69-year-old female well-known to me that presents with chronic persistent back and leg pain. After failing extensive course of nonoperative care is here for surgical intervention. Allergies Allergy/AdvReac Type Severity Reaction Status Date / Time sumatriptan AdvReac Unknown advised to Verified 12/06/19 10:24 avoid d/t hx heart surgery varenicline AdvReac Unknown advised to Verified 12/06/19 10:24 avoid d/t hx heart surgery Home Medications Home Medications Medication Instructions Recorded Confirmed Type acetaminophen [Tylenol Extra 2 tab PO Q6H PRN 03/22/19 12/06/19 History Strength] atorvastatin 80 mg PO QAM 03/22/19 12/06/19 History cetirizine [Allergy Relief 10 mg PO QAM 03/22/19 12/06/19 History (cetirizine)] cholecalciferol (vitamin D3) 1,000 unit PO DAILY 03/22/19 12/06/19 History [Vitamin D3] clopidogrel [Plavix] 75 mg PO QAM 03/22/19 12/06/19 History cyanocobalamin (vitamin B-12) 1,000 mcg SUBLINGUAL QAM 03/22/19 12/06/19 History duloxetine [Cymbalta] 30 mg PO QAM 03/22/19 12/06/19 History ferrous sulfate [Iron (ferrous 325 mg PO DAILY 03/22/19 12/06/19 History sulfate)] magnesium oxide 400 mg PO HS 03/22/19 12/06/19 History metoprolol succinate 25 mg PO QAM 03/22/19 12/06/19 History trazodone 150 mg PO HS 03/22/19 12/06/19 History albuterol sulfate 90 mcg/actuation 1 - 2 puff INHALATION Q4H PRN gm 06/24/19 12/06/19 History aerosol inhaler apixaban 5 mg tablet 5 mg PO BID 06/24/19 12/06/19 History cyclobenzaprine 5 mg tablet 5 mg PO Q8H PRN tab 06/24/19 12/06/19 History fluticasone propionate 220 1 puffs INHALATION BID gm 06/24/19 12/06/19 History mcg/actuation HFA aerosol inhaler gabapentin 300 mg capsule 300 mg PO TID 06/24/19 12/06/19 History loratadine 10 mg tablet 10 mg PO DAILY tab 06/24/19 12/06/19 History lorazepam 0.5 mg tablet 0.5 mg PO TID PRN tab 06/24/19 12/06/19 History metoclopramide HCl 10 mg tablet 10 mg PO QID PRN tab 06/24/19 10/31/19 History nitroglycerin 0.4 mg sublingual 0.4 mg SL UD PRN #1 tab 06/24/19 12/06/19 History tablet omeprazole 20 mg capsule,delayed 20 mg PO BID cap 06/24/19 12/06/19 History release pantoprazole 40 mg tablet,delayed 40 mg PO DAILY tab 06/24/19 12/06/19 History release pregabalin 225 mg capsule 225 mg PO BID cap 06/24/19 12/06/19 History tiotropium bromide 18 mcg capsule 1 cap INHALATION DAILY puffs 06/24/19 12/06/19 History with inhalation device triamterene 37.5 1 tab PO .COMPLEX PRN tab 06/24/19 12/06/19 History mg-hydrochlorothiazide 25 mg tablet Past Med/Surg History Medical History Anxiety Barretts esophagus Carotid artery disease Chronic obstructive pulmonary disease CKD (chronic kidney disease), stage III (Inactive) Coronary artery disease CABG x 2 (2009) cardiac stent x 1 (2014 - LCx) Degenerative disc disease Depression GERD (gastroesophageal reflux disease) controlled Hyperlipidemia Hypertension Learning disability cannot spell/limited reading skills Migraine Myocardial Infarction "silent" [place]- remote/several years ago Osteoarthritis PAD (peripheral artery disease) <50% aorta-iliac system stenosis per 09/26/19 duplex Paroxysmal atrial fibrillation Peripheral neuropathy LLE PVD (peripheral vascular disease) Stroke "silent" stroke noted incidentally on imaging several years ago= no residual issues Surgical History Fusion of spine LUMBAR ACDF C5-C7: 10/30/17: Grade view 1, MAC#3, ETT 7.0 at [facility] History of bilateral tubal ligation History of cardiac cath CABG x 2 (2009) cardiac stent x 1 (2015 - LCx) History of cholecystectomy History of colonoscopy History of esophagogastroduodenoscopy (EGD) History of Lauren fundoplication History of tonsillectomy History of tooth extraction History of total abdominal hysterectomy and bilateral salpingo-oophorectomy History of total hip arthroplasty LEFT History of total knee replacement RT/LEFT Family History Father Family history of diabetes mellitus Social History Preferred Language: Singaporean Communication Ability: Effective Incident Response Analyst Required: No Beliefs That Will Affect Care: None Current Living Situation: Spouse Other Information That Helps Us Care for You: No Feels Safe at Home: Yes Safety Concerns: Feels Safe At This Time Smoking Status: Current every day smoker Tobacco Type: cigarettes ; Cigarettes Per Day: 10 CIG DAILY (TOBACCO USE X 40+ YEARS AGO) ; Do You Dip or Chew Tobacco: No ; Second Hand Exposure: No ; Tobacco Cessation Education Requested by Patient: No Hx Alcohol Use: No Hx Substance Use: No Physical Exam Physical Exam: Patient is alert and oriented neurologically intact. Results & Data Vital Signs (Past 12 Hours) Vital Signs Temp Pulse Resp BP Pulse Ox 12/06/19 10:32 36.4 C L 98 H 20 164/81 H 98
[2019-12-06] MEDS ORDERED: BACITRACIN INJ 50,000 UNIT VIAL ONE (12:27)
[2019-12-06] MEDS ORDERED: BUPIVACAINE/EPINEPHRINE 0.5% MPF 1:200,000 10 ML VIAL ONE (12:31)
[2019-12-06] MEDS ORDERED: FLOSEAL HEMOSTATIC MATRIX 10ML TOP ONE (13:15)
--- NOTE | 2019-12-06 14:40 | Operative Report ---
Post Operative Report Pre & Post Diagnosis Operation Date: 12/06/19 11:55 Pre-Op Diagnosis: Lumbar spinal stenosis with radiculopathy Post-Op Diagnosis: Same I identified the patient and participated in the time-out.: Yes Procedure Operation Date: 12/06/19 11:55 Actual Procedures #1 removal of instrumentation L5-S1. #2 expiration of fusion L5-S1. #3 lumbar decompression with bilateral medial facetectomies foraminotomies L4-5. #4 posterior spinal fusion L4-5 per #5 placement posterior instrumentation L4-5 L5- S1. #6 interbody fusion L4-5. #7 placement of titanium cage 12 x 22 mm L4-5. #8 placement of locally harvested morselized autograft in the posterior lateral gutters. #9 patient infuse collagen sponge master graft and posterior gutters and ostial amp and interbody space. Surgeon Bret Miller DO Patient Transporter Layla Navarro Estimated Blood Loss 150 Findings Consistent with Post-Op Diagnosis Specimens None Indications This is a 69-year-old female known to the presents with above-mentioned diagnosis after failing stents course of nonoperative care is here for surgical invention. Description of Procedure Patient was met with identified informed consent obtained. Patient was then taken to the operative suite underwent an patient placed in a prone position Ja ckson table on top Landon frame. All bony prominences well-padded eyes inspected to ensure no external pressure placed upon. This point the lumbar spine was prepped and draped in the normal sterile fashion. Sharp dissection with assistance pericardial form down to and exposing the lamina and trans- processes of L4 and the instrumentation L5 and S1 levels bilaterally. Then proceeded with the hardware bilaterally explore the fusion mass noting some continued motion. Then performed complete laminectomy of L4 including bilateral medial facetectomies and foraminotomies addressing severe stenosis. Pedicle screws were then placed in L4-L5 and S1 levels bilaterally with assistance of fluoroscopy and appropriate size efrain placed. By way of a transforaminal portion left complete discectomy was performed endplates curetted to subcortical being bone and a 12 x 22 mm titanium cage filled with osteo-bone graft tapped in position. The rods were then compressed locked in final position bilaterally. The transverse processes of L4 and L5 bur to subcortical bleeding bone. Infuse collagen sponge master graft and local autograft was then placed in the posterior lateral gutters. 15 round CLAUDIO drain inserted. Patient was then closed with 1 Vicryl in the fascia 2-0 Vicryl subcutaneously and 4 Monocryl for possible closure. Patient was then awakened taken to PACU stable condition. Please note Layla Navarro was present at the entire procedure involved in patient positioning complex portions of the surgery and final skin closure. Lastly spinal cord monitoring was utilized that the procedure no changes noted. I attest to the content of the Intraoperative Record and any orders documented therein. Any exceptions are noted below.
--- NOTE | 2019-12-06 14:44 | Fluoroscopy Report ---
FL lumbar spine 2-3V CLINICAL HISTORY: L4-L5 DECOMPRESSION AND FUSION L5-S1 HARDWARE REMOVAL COMPARISON STUDY: 05/31/2018 FLUOROSCOPY TIME: 10 seconds. NUMBER OF FLUOROSCOPIC IMAGES: 2 FINDINGS: There are postsurgical changes of L4-5 and L5-S1 discectomies interbody fusions. There is p osterior pedicle screw fixation with L4-S1 pedicle screws and adjoining spinal rods. IMPRESSION: Intraoperative radiographs demonstrating postsurgical changes as described above. ACT 112: Negative or not required by law. Electronically signed by: Adrien Hebert M.D. 12/06/2019 2:42 PM
[2019-12-06] MEDS: HYDROmorphone INJ 2 MG/ML SYR/VIAL IV PRN ×6 (15:12→15:38)
--- NOTE | 2019-12-06 15:37 | Anesthesiology Progress Note ---
Date of Service December 06, 2019 Anesthesia Post Procedure Vital Signs Vital Signs: Temp Pulse Pulse Resp BP Pulse Ox 12/06/19 15:25 82 20 121/65 98 12/06/19 15:15 77 13 142/82 H 99 12/06/19 14:55 82 13 131/69 99 12/06/19 14:48 36.5 C 89 13 165/108 H 99 12/06/19 14:05 79 13 148/70 H 99 12/06/19 10:32 36.4 C L 98 H 20 164/81 H 98 Pain Intensity Lower Back: Pain Intensity: 2 Transfer of Care Handoff Completed per policy Notes Mental Status: alert / awake / arousable Patient Amnestic to Procedure: Yes Nausea / Vomiting: adequately controlled Pain: adequately controlled Airway Patency, RR, SpO2: stable & adequate BP & HR: stable & adequate Hydration State: stable & adequate Anesthetic Complications: no major complications apparent and Pt Satisfied with anesthetic care Notes: The patient is awake and stable.
[2019-12-06] MEDS ORDERED: NITROGLYCERIN SL 0.4 MG/TAB TAB SL PRN (16:19)
[2019-12-06] MEDS ORDERED: HYDROmorphone INJ 1 MG/ML SYRINGE IV PRN (16:19)
[2019-12-06] MEDS ORDERED: ACETAMINOPHEN 500 MG TAB PO PRN (16:19)
[2019-12-06] MEDS ORDERED: PROMETHAZINE HCL 12.5 MG in SODIUM CHLORIDE 0.9% 50 ML IV PRN (16:19)
[2019-12-06] MEDS ORDERED: HYDROmorphone INJ 0.5 MG/0.5 ML SYR IV PRN (16:19)
[2019-12-06] MEDS ORDERED: DO NOT ADMINISTER FLU VACCINE PRN (16:19)
[2019-12-06] MEDS ORDERED: LORazepam 0.5 MG/1 ML VIAL IV PRN (16:19)
[2019-12-06] MEDS ORDERED: METOCLOPRAMIDE HCL INJ 5 MG/ML 2 ML VIAL IV PRN (16:19)
[2019-12-06] MEDS ORDERED: ONDANSETRON 4 MG OD TAB PO PRN (16:19)
[2019-12-06] MEDS ORDERED: DO NOT ADMINISTER PNEUMOCOCCAL VACCINE PRN (16:19)
[2019-12-06] MEDS ORDERED: LORazepam 0.5 MG TAB PO PRN (16:19)
[2019-12-06] MEDS ORDERED: MAGNESIUM HYDROXIDE SUSP 30 ML UDC PO PRN (16:19)
[2019-12-06] MEDS ORDERED: FAMOTIDINE 20 MG TAB PO PRN (16:19)
[2019-12-06] MEDS ORDERED: ALUMINUM/MAGNESIUM SUSP 30 ML UDC PO PRN (16:19)
[2019-12-06] MEDS ORDERED: bisacodyL 10 MG SUPP PR PRN (16:19)
[2019-12-06] MEDS ORDERED: ACETAMINOPHEN 1,000 MG/100 ML VIAL IV PRN (16:19)
[2019-12-06] MEDS ORDERED: NALOXONE HCL 0.4 MG/1 ML VIAL/CARP IV PRN (16:19)
[2019-12-06] MEDS ORDERED: METOCLOPRAMIDE HCL 10 MG TABLET PO PRN (16:19)
[2019-12-06] MEDS ORDERED: CYCLOBENZAPRINE HCL 5 MG TAB PO PRN (16:19)
[2019-12-06] MEDS ORDERED: SOD PHOSPHATE/SOD BIPHOSPHATE ENEMA 132 ML BTL PR PRN (16:19)
--- NOTE | 2019-12-06 19:53 | Hospitalist Consultation ---
Date of Consultation December 06, 2019 Assessment & Plan (1) Neurogenic claudication due to lumbar spinal stenosis: S/P decompression and fusion performed by Dr. Miller today. No post op complication Incentive spirometry Monitor H/H Pain control PT/OT evl Paroxysmal Afib Rate control with metoprolol Apixaban 5mg on hold due to recent procedure Will restart anticoagulant once bleeding stable HTN BP stable Continue metoprolol CAD Please restart plavix once bleeding improved Continue statin and metoprolol DVR px as per ortho CODE STATUS Full code History of Present Illness Reason for Consultation: Medical management Attending Physician: Bret Miller, DO History of Present Illness Past medical history of COPD, cardiomyopathy, CAD, peripheral vascular disease, hypertension, paroxysmal A. fib, dyslipidemia who failed conservative management for neurogenic claudication due to lumbar spinal stenosis. [facility] was consulted for medical management. S/P removal of instrumentation L5-S1. #2 expiration of fusion L5-S1. #3 lumbar decompression with bilateral medial facetectomies foraminotomies L4-[address] Miller today. Currently pt said that pain controlled. Denies any chest pain, palpitation, dizziness, shortness of breath. Allergies Allergy/AdvReac Type Severity Reaction Status Date / Time sumatriptan AdvReac Unknown advised to Verified 12/06/19 10:24 avoid d/t hx heart surgery varenicline AdvReac Unknown advised to Verified 12/06/19 10:24 avoid d/t hx heart surgery Home Medications Home Medications Medication Instructions Recorded Confirmed Type acetaminophen [Tylenol Extra 2 tab PO Q6H PRN 03/22/19 12/06/19 History Strength] atorvastatin 80 mg PO QAM 03/22/19 12/06/19 History cetirizine [Allergy Relief 10 mg PO QAM 03/22/19 12/06/19 History (cetirizine)] cholecalciferol (vitamin D3) 1,000 unit PO DAILY 03/22/19 12/06/19 History [Vitamin D3] clopidogrel [Plavix] 75 mg PO QAM 03/22/19 12/06/19 History cyanocobalamin (vitamin B-12) 1,000 mcg SUBLINGUAL QAM 03/22/19 12/06/19 History duloxetine [Cymbalta] 30 mg PO QAM 03/22/19 12/06/19 History ferrous sulfate [Iron (ferrous 325 mg PO DAILY 03/22/19 12/06/19 History sulfate)] magnesium oxide 400 mg PO HS 03/22/19 12/06/19 History metoprolol succinate 25 mg PO QAM 03/22/19 12/06/19 History trazodone 150 mg PO HS 03/22/19 12/06/19 History albuterol sulfate 90 mcg/actuation 1 - 2 puff INHALATION Q4H PRN gm 06/24/19 12/06/19 History aerosol inhaler apixaban 5 mg tablet 5 mg PO BID 06/24/19 12/06/19 History cyclobenzaprine 5 mg tablet 5 mg PO Q8H PRN tab 06/24/19 12/06/19 History fluticasone propionate 220 1 puffs INHALATION BID gm 06/24/19 12/06/19 History mcg/actuation HFA aerosol inhaler gabapentin 300 mg capsule 300 mg PO TID 06/24/19 12/06/19 History loratadine 10 mg tablet 10 mg PO DAILY tab 06/24/19 12/06/19 History lorazepam 0.5 mg tablet 0.5 mg PO TID PRN tab 06/24/19 12/06/19 History metoclopramide HCl 10 mg tablet 10 mg PO QID PRN tab 06/24/19 10/31/19 History nitroglycerin 0.4 mg sublingual 0.4 mg SL UD PRN #1 tab 06/24/19 12/06/19 History tablet omeprazole 20 mg capsule,delayed 20 mg PO BID cap 06/24/19 12/06/19 History release pantoprazole 40 mg tablet,delayed 40 mg PO DAILY tab 06/24/19 12/06/19 History release tiotropium bromide 18 mcg capsule 1 cap INHALATION DAILY puffs 06/24/19 12/06/19 History with inhalation device triamterene 37.5 1 tab PO .COMPLEX PRN tab 06/24/19 12/06/19 History mg-hydrochlorothiazide 25 mg tablet Patient History Medical History Anxiety Barretts esophagus Carotid artery disease Chronic obstructive pulmonary disease CKD (chronic kidney disease), stage III (Inactive) Coronary artery disease CABG x 2 (2009) cardiac stent x 1 (2014 - LCx) Degenerative disc disease Depression GERD (gastroesophageal reflux disease) controlled Hyperlipidemia Hypertension Learning disability cannot spell/limited reading skills Migraine Myocardial Infarction "silent" TX- remote/several years ago Osteoarthritis PAD (peripheral artery disease) <50% aorta-iliac system stenosis per 09/26/19 duplex Paroxysmal atrial fibrillation Peripheral neuropathy LLE PVD (peripheral vascular disease) Stroke "silent" stroke noted incidentally on imaging several years ago= no residual issues Surgical History Fusion of spine LUMBAR ACDF C5-C7: 10/30/17: Grade view 1, MAC#3, ETT 7.0 at [facility] History of bilateral tubal ligation History of cardiac cath CABG x 2 (2009) cardiac stent x 1 (2015 - LCx) History of cholecystectomy History of colonoscopy History of esophagogastroduodenoscopy (EGD) History of Lauren fundoplication History of tonsillectomy History of tooth extraction History of total abdominal hysterectomy and bilateral salpingo-oophorectomy History of total hip arthroplasty LEFT History of total knee replacement RT/LEFT Family History Father Family history of diabetes mellitus Social History Preferred Language: Luxembourgish Communication Ability: Effective Pilot Safety Inspector Required: No Beliefs That Will Affect Care: None Current Living Situation: Spouse Other Information That Helps Us Care for You: No Feels Safe at Home: Yes Safety Concerns: Feels Safe At This Time Smoking Status: Current every day smoker Tobacco Type: cigarettes ; Cigarettes Per Day: 10 CIG DAILY (TOBACCO USE X 40+ YEARS AGO) ; Do You Dip or Chew Tobacco: No ; Second Hand Exposure: No ; Tobacco Cessation Education Requested by Patient: No Hx Alcohol Use: No Hx Substance Use: No Review of Systems Review of Systems: All systems reviewed & are unremarkable except as noted in HPI & below Physical Exam Physical Exam: General- No acute distress Head- atraumatic Eyes- PERRL, EOMI, ENT- oropharynx clear Neck- supple, no JVD Lungs- clear to auscultation Heart- regular rhythm; no murmur Abdomen- normal bowel sounds, soft, nontender Extremities- no calf tenderness Neuro- alert, oriented x 3; PERRL, EOMI; no facial palsy; no dysarthria Skin- warm & dry Results & Data Vital Signs (Past 12 Hours) Vital Signs Temp Pulse Pulse Pulse Resp BP Pulse Ox 12/06/19 19:18 36.4 C L 82 16 104/65 93 12/06/19 18:16 36.6 C 83 18 117/68 98 12/06/19 17:15 36.4 C L 82 16 104/63 96 12/06/19 16:40 36.5 C 80 16 103/68 95 12/06/19 16:15 36.8 C 85 16 104/68 96 12/06/19 15:55 36.4 C L 80 14 107/60 95 12/06/19 15:45 36.4 C L 87 21 125/56 L 97 12/06/19 15:35 81 17 108/61 98 12/06/19 15:25 82 20 121/65 98 12/06/19 15:15 77 13 142/82 H 99 12/06/19 14:55 82 13 131/69 99 12/06/19 14:48 36.5 C 89 13 165/108 H 99 12/06/19 14:05 79 13 148/70 H 99 12/06/19 10:32 36.4 C L 98 H 20 164/81 H 98 Diagnostic Findings FL lumbar spine 2-3V CLINICAL HISTORY: L4-L5 DECOMPRESSION AND FUSION L5-S1 HARDWARE REMOVAL COMPARISON STUDY: 05/31/2018 FLUOROSCOPY TIME: 10 seconds. NUMBER OF FLUOROSCOPIC IMAGES: 2 FINDINGS: There are postsurgical changes of L4-5 and L5-S1 discectomies interbody fusions. There is posterior pedicle screw fixation with L4-S1 pedicle screws and adjoining spinal rods. IMPRESSION: Intraoperative radiographs demonstrating postsurgical changes as described above. ACT 112: Negative or not required by law. Electronically signed by: Adrien Hebert M.D. 12/06/2019 2:42 PM Dictated: 12/06/19 1440 Transcribed: 12/06/19 1440 XR chest Pre-admission PA/Lat CLINICAL HISTORY: Preoperative chest COMPARISON STUDY: 03/23/2017, 06/03/2016 FINDINGS: There are stable areas of presumed pleural scarring. There are linear opacities at the right mid and lower lung zone, likely representing atelectasis/scarring. These remain similar to the preceding study. There is no failure. There is no evidence of lobar consolidation.[There are postsurgical changes of midline sternotomy. There are postsurgical changes present within the cervical spine. IMPRESSION: 1. Areas of chronic pleural-parenchymal scarring. No acute findings. Electronically signed by: Adrien Hebert M.D. 11/03/2019 3:18 PM Dictated: 11/03/19 1516 Transcribed: 11/03/19 1516
[2019-12-06] MEDS: SODIUM CHLORIDE 0.9% 1000ML 1,000 ML IV SCH (20:11)
[2019-12-06] MEDS: GABAPENTIN 300 MG CAP PO SCH (20:13)
[2019-12-06] MEDS: DOCUSATE SODIUM/SENNA 50/8.6MG TAB PO SCH (20:13)
[2019-12-06] MEDS: MAGNESIUM OXIDE 400 MG TAB PO SCH (20:13)
[2019-12-06] MEDS: TRAZODONE HCL 50 MG TAB PO SCH (20:13)
[2019-12-06] MEDS: OXYCODONE HCL IR 5 MG TAB (IMMEDIATE RELEASE) PO PRN (20:19)
[2019-12-06] MEDS: CEFAZOLIN 2000MG 2,000 MG/15 ML SYR IV SCH (20:33)
[2019-12-06] MEDS ORDERED: PREGABALIN 75 MG CAP PO SCH (21:00)
[2019-12-06] MEDS ORDERED: NON-FORMULARY MEDICATION (Omeprazole 20 MG) PO SCH (21:00)
[2019-12-07] MEDS: OXYCODONE HCL IR 5 MG TAB (IMMEDIATE RELEASE) PO PRN ×3 (00:34→13:10)
[2019-12-07] MEDS: CEFAZOLIN 2000MG 2,000 MG/15 ML SYR IV SCH (04:15)
[2019-12-07] MEDS: TRAMADOL HCL 50 MG TABLET PO PRN (04:20)
[2019-12-07] MEDS: SODIUM CHLORIDE 0.9% 1000ML 1,000 ML IV SCH (04:27)
[2019-12-07 05:33] LABS: Basophils # (auto) 0.01 K/uL (0-0.2); Basophils % (auto) 0.1 %; Eosinophils # (auto) 0.09 K/uL (0-0.5); Eosinophils % (auto) 0.8 %; Hematocrit (blood only) 32.9 % (37-47); Hemoglobin 10.4 g/dL (12.0-16.0); Immature Granulocytes # (auto) 0.04 K/uL (0.00-0.02); Immature Granulocytes % (auto) 0.3 %; Lymphocytes # (auto) 1.05 K/uL (1.2-3.4); Mean Corpuscular Hemoglobin 30.9 pg (25-34); Mean Corpuscular Hgb Conc 31.6 g/dL (32-36); Mean Corpuscular Volume 97.6 fL (80-100); Mean Platelet Volume 9.3 fL (7.4-10.4); Monocytes # (auto) 0.91 K/uL (0.11-0.59); Monocytes % (auto) 7.8 %; Neutrophils # (auto) 9.59 K/uL (1.4-6.5); Platelet Count 292 K/uL (130-400); RDW Coefficient of Variation 14.8 % (11.5-14.5); Red Blood Count 3.37 M/uL (4.2-5.4); White Blood Count 11.69 K/uL (4.8-10.8)
[2019-12-07] MEDS: POLYETHYLENE (MIRALAX) 17 GM PACK PO SCH ×3 (05:53→17:59)
[2019-12-07 06:02] LABS: BUN Creatinine Ratio 9.4 (10-20); Creatinine Clr Calc Pharmacy 79.2 ml/min; Est GFR (African American) 102.5; Est GFR (Non-African American) 88.4
[2019-12-07] MEDS: FERROUS SULFATE 325 MG TAB PO SCH (08:42)
[2019-12-07] MEDS: PANTOprazole 40 MG TAB PO SCH (08:43)
[2019-12-07] MEDS: CHOLECALCIFEROL 1,000 UNITS TAB PO SCH (08:43)
[2019-12-07] MEDS: DULOXETINE HCL 30 MG CAP PO SCH (08:43)
[2019-12-07] MEDS: GABAPENTIN 300 MG CAP PO SCH ×3 (08:44→20:42)
[2019-12-07] MEDS: ATORVASTATIN 40 MG TAB PO SCH (08:44)
[2019-12-07] MEDS: LORATADINE 10 MG TAB PO SCH (08:45)
[2019-12-07] MEDS: METOPROLOL SUCC 25MG EXT REL TAB PO SCH (08:49)
--- NOTE | 2019-12-07 08:57 | Hospitalist Progress Note ---
Date of Service December 07, 2019 Assessment & Plan (1) Neurogenic claudication due to lumbar spinal stenosis: S/P decompression and fusion POD # [address] Miller EBL: 150ml, CLAUDIO drain 190ml tolerated procedure well pain/wound management per ortho activity and therapy as directed by ortho Incentive spirometry Monitor H/H - (pre op 12.9 and 39.9) today 10.4 and 32.9 (2) Paroxysmal atrial fibrillation: mildly tachycardic this morning, likely 2/2 to pain, rhythm controlled continue metoprolol Apixaban 5mg on hold due to recent procedure, recommend resume starting at discretion of Dr. Miller (3) HTN (hypertension): blood pressure controlled continue metoprolol (4) COPD (chronic obstructive pulmonary disease): no acute exac pt prescribed spiriva, states she hasn't used it in 2 years, "I don't need it." Will d/c encourage incentive spirometry pt did require O2 supplementation over night, states she use to use O2 at HS at home, but unable to afford monitor O2 saturations, currently stable (5) Coronary artery disease: restart plavix once hemostasis achieved - resume at discretion of Dr. Miller Continue statin and metoprolol (6) Tobacco abuse: current smoker encourage cessation declines nicotine patch Disposition: per primary Follow up: Dr. Oconnor FULL CODE Pt was seen and examined in collaboration with Dr. Phillips please see addendum Thank you for this consultation. We will follow the patient with you during their hospital stay. You can reach a [facility] via pager @ [phone]. Supervising Physician Co-Signing Physician Notes I saw this patient with the physician web marketing assistant, I participated in the history, physical, review of systems, and physical exam. I reviewed the medications with the patient and the physician web marketing assistant and helped reconcile the medications. I helped take a detailed family and social history as well. I formulated the assessment and plan personally with the physician web marketing assistant and went over it with the patient. Physical Exam Gen-AAO x 3, NAD, Afebrile, Edentulous Head-NCAT, EOMI, PERRLA, Anicteric Sclera, No Posterior Pharyngeal Erythema Neck-Supple, No JVD, No Thyromegaly, No Masses, No LAD, No Bruits Lungs-Clear to Auscultation Bilaterally, No Rales, No Rhonchi, No Wheezing, No Crepitus Chest-No S4, +S1, +S2, No S3, No Murmurs, No Rubs, No Gallops, No Ectopy Abdomen-Soft, Bowel Sounds Present, Non Tender, Non Distended, No Hepatomegaly, No Splenomegaly, No Palpable Masses, No Rebound, No Rigidity, No Guarding Musculoskeletal-Full Range of Motion Bilaterally, No CVAT Extremities-No Cyanosis, No Clubbing, No Edema Nuero-Cranial Nerves II-XII grossly intact, Motor WNL, DTRs WNL, Strength WNL, Non Focal Psych-Normal Mood Subjective Patient was seen and examined in room 311. Follow-up POD #[address] Miller. Patient complains of lumbar discomfort, no radiation of pain. Pain currently 8/10. Recently received analgesia. She denies any fever, chills, sweats, lightheadedness, dizziness, chest pain, shortness breath at rest, hemoptysis, nausea, vomiting, abdominal pain. She is not passing flatus. Continues to have Craig catheter in place. She does elicit to cough that started this morning wi th occasional production and purulent sputum. She denies chronic cough, but feels a secondary to her ET tube. Appetite is decreased since surgery, but is drinking liquids. She admits to doing incentive spirometer, last use first and this morning. According to nursing staff she did require oxygen via nasal cannula overnight. Patient states at home she used to require 2 L at bedtime; ever, has not used in the past 2 years secondary to inability to afford. Review of Systems Review of Systems: All systems reviewed & are unremarkable except as noted in HPI & below Physical Exam Physical Exam: Gen: WD/WN, NAD,Female, A&O x3 HEENT: Normocephalic, atraumatic, conjunctivae moist, sclerae anicteric, mucous membranes dry, dentition absent Lung: Clear to Auscultation bilaterally, no wheezes/rales/rhonchi Heart: tachycardic rate 100, regular rhythm, no murmurs, rubs, or gallops Abdomen: Soft, NT, ND +BS x 4 Extremities: No edema Skin: Warm, no rash, negative turgor. : Craig in place draining tamiko colored urine Results & Data Vital Signs (Past 12 Hours) Vital Signs Temp Pulse Pulse Pulse Resp BP BP 12/07/19 08:49 99 H 108/67 12/07/19 07:45 37.1 C 92 H 20 114/70 12/07/19 03:56 96 H 12/07/19 03:55 37.0 C 108 H 20 133/79 12/07/19 03:54 12/06/19 23:16 36.9 C 98 H 16 125/69 12/06/19 21:17 36.4 C L 84 16 103/66 Pulse Ox 12/07/19 08:49 12/07/19 07:45 92 12/07/19 03:56 12/07/19 03:55 97 12/07/19 03:54 85 L 12/06/19 23:16 92 12/06/19 21:17 94 Laboratory Results Short CBC 12/07/19 Range/Units 05:22 WBC 11.69 H (4.8-10.8) K/uL Hgb 10.4 L (12.0-16.0) g/dL Hct 32.9 L (37-47) % Plt Count 292 (130-400) K/uL BMP 12/07/19 05:22 Sodium 138 Potassium 4.0 Chloride 106 Carbon Dioxide 30 BUN 7 Creatinine 0.70 Glucose 104 H Calcium 8.0 L Medications Administered Atorvastatin Calcium (Lipitor) 80 mg PO QAM [facility] Stop: 01/06/20 08:59 Last Admin: 12/07/19 08:44 Dose: 80 mg Documented by: [id number] Duloxetine HCl (Cymbalta) 30 mg PO QAM [facility] Stop: 01/06/20 08:59 Last Admin: 12/07/19 08:43 Dose: 30 mg Documented by: [id number] Ferrous Sulfate (Feosol) 325 mg PO DAILY [facility] Stop: 01/06/20 08:59 Last Admin: 12/07/19 08:42 Dose: 325 mg Documented by: [id number] Gabapentin (Neurontin) 300 mg PO TID [facility] Stop: 01/05/20 20:59 Last Admin: 12/07/19 08:44 Dose: 300 mg Documented by: [id number] Admin: 12/06/19 20:13 Dose: 300 mg Documented by: [id number] Loratadine (Claritin) 10 mg PO DAILY [facility] Stop: 01/06/20 08:59 Last Admin: 12/07/19 08:45 Dose: 10 mg Documented by: [id number] Magnesium Oxide (Mag-Ox) 400 mg PO [facility] Stop: 01/05/20 20:59 Last Admin: 12/06/19 20:13 Dose: 400 mg Documented by: [id number] Metoprolol Succinate (Toprol Xl) 25 mg PO QAM [facility] Stop: 01/06/20 08:59 Last Admin: 12/07/19 08:49 Dose: 25 mg Documented by: [id number] Oxycodone HCl (Roxicodone Immediate Rel) 5 - 10 mg PO Q4H PRN PRN Reason: Moderate-Severe Pain Stop: 12/20/19 16:18 Last Admin: 12/07/19 07:45 Dose: 10 mg Documented by: [id number] Admin: 12/07/19 00:34 Dose: 10 mg Documented by: [id number] Admin: 12/06/19 20:19 Dose: 10 mg Documented by: [id number] Pantoprazole Sodium (Protonix) 40 mg PO DAILY [facility] Stop: 01/06/20 08:59 Last Admin: 12/07/19 08:43 Dose: 40 mg Documented by: [id number] Polyethylene Glycol (Miralax Powder Packet) 17 gm PO Q6 [facility] Stop: 01/06/20 05:59 Last Admin: 12/07/19 05:53 Dose: 17 gm Documented by: [id number] Senna/Docusate Sodium (Senokot S) 2 tab PO [facility] Stop: 01/05/20 20:59 Last Admin: 12/06/19 20:13 Dose: 2 tab Documented by: [id number] Tiotropium [place] (Spiriva) 1 puffs INH DAILY [facility] Stop: 01/06/20 08:59 Last Admin: 12/07/19 08:50 Dose: Not Given Documented by: [id number] Tramadol HCl (Ultram) 50 - 100 mg PO Q4H PRN PRN Reason: Moderate-Severe Pain Stop: 01/05/20 16:18 Last Admin: 12/07/19 04:20 Dose: 100 mg Documented by: [id number] Trazodone HCl (Desyrel) 150 mg PO [facility] Stop: 01/05/20 20:59 Last Admin: 12/06/19 20:13 Dose: 150 mg Documented by: [id number] Vitamin D (Vitamin D3) 1,000 units PO DAILY [facility] Stop: 01/06/20 08:59 Last Admin: 12/07/19 08:43 Dose: 1,000 units Documented by: [id number] Discontinued Medications Acetaminophen (Tylenol) 1,000 mg PO PREOP [facility] Stop: 12/06/19 18:00 Last Admin: 12/06/19 10:46 Dose: 1,000 mg Documented by: [id number] Bacitracin (Bacitracin) Confirm Administered Dose 50,000 units .ROUTE .STK-MED [facility] Stop: 12/06/19 12:28 Last Admin: 12/06/19 13:14 Dose: 50,000 units Documented by: [id number] Bupivacaine HCl/Epinephrine Bitart (Sensorcaine/Epinephrine 0.5% Mpf 1:200,000) Confirm Administered Dose 30 ml .ROUTE .[facility] Stop: 12/06/19 12:32 Last Admin: 12/06/19 13:15 Dose: 20 ml Documented by: [id number] Celecoxib (Celebrex) 200 mg PO PREOP [facility] Stop: 12/06/19 18:00 Last Admin: 12/06/19 10:46 Dose: 200 mg Documented by: [id number] Fentanyl Citrate (Fentanyl Citrate) Confirm Administered Dose 100 mcg .ROUTE .[facility] Stop: 12/06/19 15:11 Last Admin: 12/06/19 22:11 Dose: Not Given Documented by: [id number] Gabapentin (Neurontin) 300 mg PO PREOP [facility] Stop: 12/06/19 18:00 Last Admin: 12/06/19 10:46 Dose: 300 mg Documented by: [id number] Hydromorphone HCl (Dilaudid) 0.25 mg IV Q5M PRN PRN Reason: Pain Stop: 12/20/19 10:09 Last Admin: 12/06/19 15:38 Dose: 0.25 mg Documented by: [id number] Admin: 12/06/19 15:33 Dose: 0.25 mg Documented by: [id number] Admin: 12/06/19 15:27 Dose: 0.25 mg Documented by: [id number] Admin: 12/06/19 15:23 Dose: 0.25 mg Documented by: [id number] Admin: 12/06/19 15:17 Dose: 0.25 mg Documented by: [id number] Admin: 12/06/19 15:12 Dose: 0.25 mg Documented by: [id number] Lactated Ringer's (Lr) 1,000 mls @ 15 mls/hr IV .Q24H [facility] Stop: 12/07/19 05:59 Last Infusion: 12/06/19 12:35 Dose: 0 mls/hr Documented by: [id number] Admin: 12/06/19 10:45 Dose: 15 mls/hr Documented by: [id number] Cefazolin Sodium (Ancef 2000mg) 2,000 mg in 15 mls @ 3.75 mls/min IV PREOP [facility]; Protocol Stop: 12/06/19 18:00 Last Admin: 12/06/19 12:35 Dose: 3.75 mls/min Documented by: [id number] Cefazolin Sodium (Ancef 2000mg) 2,000 mg in 15 mls @ 3.75 mls/min IV Q8H [facility]; Protocol Stop: 12/07/19 04:33 Last Admin: 12/07/19 04:15 Dose: 3.75 mls/min Documented by: [id number] Admin: 12/06/19 20:33 Dose: 3.75 mls/min Documented by: [id number] Sodium Chloride (Nss 1000ml) 1,000 mls @ 100 mls/hr IV .Q10H [facility] Stop: 01/05/20 16:18 Last Admin: 12/07/19 04:27 Dose: Not Given Documented by: [id number] Infusion: 12/07/19 04:26 Dose: 0 mls/hr Documented by: [id number] Infusion: 12/06/19 22:15 Dose: 100 mls/hr Documented by: [id number] Admin: 12/06/19 20:11 Dose: 100 mls/hr Documented by: [id number] Miscellaneous (Floseal Hemostatic Matrix 10ml) 10 ml TOP ONCE ONE Stop: 12/06/19 13:16 Last Admin: 12/06/19 14:20 Dose: 15 ml Documented by: [id number]
[2019-12-07] MEDS ORDERED: TIOTROPIUM BROMIDE 5 PUFF/90 MCG INH INH SCH (09:00)
[2019-12-07] MEDS ORDERED: CETIRIZINE HCL 10 MG TABLET PO SCH (09:00)
--- NOTE | 2019-12-07 13:01 | Orthopedic Progress Note ---
Date of Service December 07, 2019 Assessment & Plan (1) Neurogenic claudication due to lumbar spinal stenosis: This time we will continue physical therapy monitor her CLAUDIO output hopefully discharge home in the next few days. Present on Admission?: Yes Subjective Back pain is controlled leg pain improved. Physical Exam Physical Exam: Patient is neurologically intact comfortable. Ambulating with a walker. Results & Data Vital Signs (Past 12 Hours) Vital Signs Temp Pulse Pulse Pulse Resp BP BP 12/07/19 12:00 37.1 C 85 19 132/70 12/07/19 08:49 99 H 108/67 12/07/19 07:45 37.1 C 92 H 20 114/70 12/07/19 03:56 96 H 12/07/19 03:55 37.0 C 108 H 20 133/79 12/07/19 03:54 Pulse Ox 12/07/19 12:00 92 12/07/19 08:49 12/07/19 07:45 92 12/07/19 03:56 12/07/19 03:55 97 12/07/19 03:54 85 L
[2019-12-07] MEDS: MAGNESIUM OXIDE 400 MG TAB PO SCH (20:41)
[2019-12-07] MEDS: DOCUSATE SODIUM/SENNA 50/8.6MG TAB PO SCH (20:42)
[2019-12-07] MEDS: TRAZODONE HCL 50 MG TAB PO SCH (20:42)
[2019-12-08] MEDS: POLYETHYLENE (MIRALAX) 17 GM PACK PO SCH ×5 (00:40→23:55)
[2019-12-08] MEDS: OXYCODONE HCL IR 5 MG TAB (IMMEDIATE RELEASE) PO PRN (00:42)
[2019-12-08 06:49] LABS: BUN Creatinine Ratio 7.5 (10-20); Calcium 8.4 mg/dl (8.5-10.1); Creatinine Clr Calc Pharmacy 79.2 ml/min; Est GFR (African American) 102.5; Est GFR (Non-African American) 88.4; Potassium 3.8 mmol/L (3.5-5.1)
[2019-12-08] MEDS: TRAMADOL HCL 50 MG TABLET PO PRN ×2 (08:34→13:21)
[2019-12-08] MEDS: CHOLECALCIFEROL 1,000 UNITS TAB PO SCH (08:35)
[2019-12-08] MEDS: ATORVASTATIN 40 MG TAB PO SCH (08:35)
[2019-12-08] MEDS: DULOXETINE HCL 30 MG CAP PO SCH (08:35)
[2019-12-08] MEDS: LORATADINE 10 MG TAB PO SCH (08:36)
[2019-12-08] MEDS: PANTOprazole 40 MG TAB PO SCH (08:36)
[2019-12-08] MEDS: GABAPENTIN 300 MG CAP PO SCH ×3 (08:36→19:53)
[2019-12-08] MEDS: FERROUS SULFATE 325 MG TAB PO SCH (08:36)
[2019-12-08] MEDS: METOPROLOL SUCC 25MG EXT REL TAB PO SCH (08:39)
[2019-12-08 09:29] LABS: Hematocrit (blood only) 32.2 % (37-47); Hemoglobin 10.2 g/dL (12.0-16.0); Mean Corpuscular Hemoglobin 30.6 pg (25-34); Mean Corpuscular Hgb Conc 31.7 g/dL (32-36); Mean Corpuscular Volume 96.7 fL (80-100); Platelet Count 298 K/uL (130-400); RDW Coefficient of Variation 15.1 % (11.5-14.5); RDW Standard Deviation 53.5 fL (36.4-46.3); Red Blood Count 3.33 M/uL (4.2-5.4); White Blood Count 12.63 K/uL (4.8-10.8)
--- NOTE | 2019-12-08 09:55 | Hospitalist Progress Note ---
Date of Service December 08, 2019 Assessment & Plan (1) Neurogenic claudication due to lumbar spinal stenosis: S/P decompression and fusion POD #[address] Miller EBL: 150ml, CLAUDIO drain 300ml to date tolerated procedure well pain/wound management per ortho activity and therapy as directed by ortho Incentive spirometry Monitor H/H - hgb stable at 10.2 today (hgb 10.4 yesterday) (2) Paroxysmal atrial fibrillation: mildly tachycardic this morning, likely 2/2 to pain, rhythm controlled continue metoprolol Apixaban 5mg on hold due to recent procedure, recommend resume starting at discretion of Dr. Miller (3) HTN (hypertension): blood pressure controlled continue metoprolol (4) COPD (chronic obstructive pulmonary disease): no acute exac but wheezing at baseline, per patient pt prescribed Spiriva, states she hasn't used it in 2 years, "I don't need it." encourage incentive spirometry pt did require O2 supplementation over night, states she use to use O2 at HS at home, but unable to afford monitor O2 saturations, currently stable (5) Coronary artery disease: restart plavix once hemostasis achieved - resume at discretion of Dr. Miller Continue statin and metoprolol (6) Tobacco abuse: current smoker encourage cessation declines nicotine patch Disposition: per primary Follow up: Dr. Oconnor FULL CODE Pt was seen and examined in collaboration with Dr. Phillips please see addendum Thank you for this consultation. We will follow the patient with you during their hospital stay. You can reach a member of the [facility]ist Team 22/06 via pager @ [phone]. Supervising Physician Co-Signing Physician Notes I saw this patient with the physician personnel assistant, I participated in the history, physical, review of systems, and physical exam. I reviewed the medications with the patient and the physician personnel assistant and helped reconcile the medications. I helped take a detailed family and social history as well. I formulated the assessment and plan personally with the physician personnel assistant and went over it with the patient. ROS-No Headache, No Visual Changes, No Nausea, No Vomiting, No Fever, No Chills, No Neck Pain or Stiffness, No Chest Pain, No Palpitations, No SOB, No RUSSO, No Cough, No Sputum, No Wheezing, No Abdominal Pain, No Diarrhea, No Hematemesis, No Hemoptysis, No Unexpected Weight Loss, No Flank pain, No Melena, No Hematochezia, No Frequency, No Urgency, No Burning, No Hematuria, No Rashes, No Diaphoresis. Appetite is Normal Gen-AAO x 3, NAD, Afebrile, Edentulous Head-NCAT, EOMI, PERRLA, Anicteric Sclera, No Posterior Pharyngeal Erythema Neck-Supple, No JVD, No Thyromegaly, No Masses, No LAD, No Bruits Lungs-Clear to Auscultation Bilaterally, No Rales, No Rhonchi, No Wheezing, No Crepitus Chest-No S4, +S1, +S2, No S3, No Murmurs, No Rubs, No Gallops, No Ectopy Abdomen-Soft, Bowel Sounds Present, Non Tender, Non Distended, No Hepatomegaly, No Splenomegaly, No Palpable Masses, No Rebound, No Rigidity, No Guarding Musculoskeletal-Full Range of Motion Bilaterally, No CVAT Extremities-No Cyanosis, No Clubbing, No Edema Nuero-Cranial Nerves II-XII grossly intact, Motor WNL, DTRs WNL, Strength WNL, Non Focal Psych-Normal Mood Subjective Seen and examined in 311-1. Endorses some surgical site pain, especially while participating in therapy. Denies any distal pain or paresthesias to bilateral lower extremities. Tolerating diet well without any nausea, vomiting or abdominal pain. No chest pain or shortness of breath. Urinating on own without issue. Passing flatus but no BM yet. Review of Systems Review of Systems: At least ten systems reviewed and negative except as noted in the HPI. Physical Exam Physical Exam: Physical Exam: General Appearance: WD/WN, vitals as above, NAD, sitting up in bedside chair watching TV, pleasant, conversing easily Head: normocephalic, atraumatic Eyes: normal inspection, PERRL, conjunctivae normal, anicteric sclerae ENT: external ear and nose normal, oropharynx normal Neck: trachea midline, no thyromegaly, normal visual inspection Respiratory: lungs clear to auscultation except for scattered wheezes. No rales or rhonchi. Normal insp/exp effort, no accessory muscle use Cardiovascular: regular rate, rhythm, no murmur appreciated, normal peripheral pulses Chest: normal inspection of chest Abdomen/GI: normal bowel sounds, soft, nontender, no hepatosplenomegaly Extremities/Musculoskeletal: Spinal dressing clean, dry, intact. CLAUDIO drain visualized. No cyanosis or clubbing, extremities motor strength 5/5 Neurologic: PERRL, EOMI, accommodation nl, no face palsy, no dysarthria, CN's II-XI intact bilaterally and moves all extremities Psychiatric: A+Ox3, euthymic affect Skin: no rashes, normal color, warm/dry Results & Data Vital Signs (Past 12 Hours) Vital Signs Temp Pulse Pulse Resp BP Pulse Ox 12/08/19 08:38 97 H 113/73 12/08/19 06:54 37.1 C 101 H 16 102/65 90 12/07/19 23:52 36.7 C 89 17 124/77 91 Laboratory Results Short CBC 12/08/19 Range/Units 05:57 WBC 12.63 H (4.8-10.8) K/uL Hgb 10.2 L (12.0-16.0) g/dL Hct 32.2 L (37-47) % Plt Count 298 (130-400) K/uL BMP 12/08/19 05:57 Sodium 138 Potassium 3.8 Chloride 104 Carbon Dioxide 30 BUN 5 L Creatinine 0.70 Glucose 148 H Calcium 8.4 L
--- NOTE | 2019-12-08 12:19 | Orthopedic Progress Note ---
Date of Service December 08, 2019 Assessment & Plan (1) Neurogenic claudication due to lumbar spinal stenosis: This time we will continue physical therapy monitor CLAUDIO output anticipate discharge home tomorrow. Present on Admission?: Yes Subjective Patient's back pain is controlled leg symptoms markedly improved. Physical Exam Physical Exam: Patient is in the chair at the bedside. She has good strength testing. Appears comfortable. Results & Data Vital Signs (Past 12 Hours) Vital Signs Temp Pulse Pulse Resp BP Pulse Ox 12/08/19 08:38 97 H 113/73 12/08/19 06:54 37.1 C 101 H 16 102/65 90
[2019-12-08] MEDS: DOCUSATE SODIUM/SENNA 50/8.6MG TAB PO SCH (19:50)
[2019-12-08] MEDS: TRAZODONE HCL 50 MG TAB PO SCH (19:52)
[2019-12-08] MEDS: MAGNESIUM OXIDE 400 MG TAB PO SCH (19:52)
[2019-12-09 05:42] LABS: Hematocrit (blood only) 33.2 % (37-47); Hemoglobin 10.7 g/dL (12.0-16.0); Mean Corpuscular Hemoglobin 30.9 pg (25-34); Mean Corpuscular Hgb Conc 32.2 g/dL (32-36); Mean Platelet Volume 9.7 fL (7.4-10.4); Platelet Count 319 K/uL (130-400); RDW Coefficient of Variation 14.8 % (11.5-14.5); RDW Standard Deviation 51.8 fL (36.4-46.3); Red Blood Count 3.46 M/uL (4.2-5.4); White Blood Count 14.99 K/uL (4.8-10.8)
[2019-12-09] MEDS: POLYETHYLENE (MIRALAX) 17 GM PACK PO SCH ×4 (06:02→22:46)
[2019-12-09 06:22] LABS: BUN Creatinine Ratio 8.8 (10-20); Calcium 8.9 mg/dl (8.5-10.1); Creatinine Clr Calc Pharmacy 95.5 ml/min; Potassium 3.8 mmol/L (3.5-5.1)
[2019-12-09] MEDS: DULOXETINE HCL 30 MG CAP PO SCH (09:01)
[2019-12-09] MEDS: FERROUS SULFATE 325 MG TAB PO SCH (09:01)
[2019-12-09] MEDS: ATORVASTATIN 40 MG TAB PO SCH (09:01)
[2019-12-09] MEDS: LORATADINE 10 MG TAB PO SCH (09:01)
[2019-12-09] MEDS: CHOLECALCIFEROL 1,000 UNITS TAB PO SCH (09:01)
[2019-12-09] MEDS: METOPROLOL SUCC 25MG EXT REL TAB PO SCH (09:02)
[2019-12-09] MEDS: PANTOprazole 40 MG TAB PO SCH (09:02)
[2019-12-09] MEDS: GABAPENTIN 300 MG CAP PO SCH ×3 (09:02→20:22)
--- NOTE | 2019-12-09 09:53 | Hospitalist Progress Note ---
Date of Service December 09, 2019 Assessment & Plan (1) Neurogenic claudication due to lumbar spinal stenosis: S/P decompression and fusion POD #[address] Miller EBL: 150ml, CLAUDIO drain 300ml to date tolerated procedure well pain/wound management per ortho activity and therapy as directed by ortho Incentive spirometry Monitor H/H - hgb stable at 10.2 today (hgb 10.4 yesterday) (2) Paroxysmal atrial fibrillation: mildly tachycardic this morning, likely 2/2 to pain, rhythm controlled continue metoprolol Apixaban 5mg on hold due to recent procedure, recommend resume starting at discretion of Dr. Miller (3) HTN (hypertension): blood pressure controlled continue metoprolol (4) COPD (chronic obstructive pulmonary disease): no acute exac but wheezing at baseline, per patient pt prescribed Spiriva, states she hasn't used it in 2 years, "I don't need it." encourage incentive spirometry pt did require O2 supplementation over night, states she use to use O2 at HS at home, but unable to afford monitor O2 saturations, currently stable (5) Coronary artery disease: restart plavix once hemostasis achieved - resume at discretion of Dr. Miller Continue statin and metoprolol (6) Tobacco abuse: current smoker encouraged cessation declines nicotine patch Disposition: Panculture for Leukocytosis-DC when WBCs are trending down Follow up: Dr. Oconnor FULL CODE ROS-No Headache, No Visual Changes, No Nausea, No Vomiting, No Fever, No Chills, No Neck Pain or Stiffness, No Chest Pain, No Palpitations, No SOB, No RUSSO, No Cough, No Sputum, No Wheezing, No Abdominal Pain, No Diarrhea, No Hematemesis, No Hemoptysis, No Unexpected Weight Loss, No Flank pain, No Melena, No Hematochezia, No Frequency, No Urgency, No Burning, No Hematuria, No Rashes, No Diaphoresis. Appetite is Normal Physical Exam Gen-AAO x 3, NAD, Afebrile, Edentulous Head-NCAT, EOMI, PERRLA, Anicteric Sclera, No Posterior Pharyngeal Erythema Neck-Supple, No JVD, No Thyromegaly, No Masses, No LAD, No Bruits Lungs-Clear to Auscultation Bilaterally, No Rales, No Rhonchi, No Wheezing, No Crepitus Chest-Tachy, No S4, +S1, +S2, No S3, No Murmurs, No Rubs, No Gallops, No Ectopy Abdomen-Soft, Bowel Sounds Present, Non Tender, Non Distended, No Hepatomegaly, No Splenomegaly, No Palpable Masses, No Rebound, No Rigidity, No Guarding Musculoskeletal-Full Range of Motion Bilaterally, No CVAT Extremities-No Cyanosis, No Clubbing, No Edema Nuero-Cranial Nerves II-XII grossly intact, Motor WNL, DTRs WNL, Strength WNL, Non Focal Psych-Normal Mood Results & Data Vital Signs (Past 12 Hours) Vital Signs Temp Pulse Pulse Resp BP BP Pulse Ox 12/09/19 08:57 104 H 141/82 H 12/09/19 07:30 36.8 C 102 H 20 132/80 94 12/08/19 22:55 36.8 C 100 H 17 121/77 91
[2019-12-09 10:59] LABS: Appearance Urine Cloudy (Clear); Bacteria Urine Automated Negative (Negative); Bilirubin Urine Negative (Negative); Blood Urine Negative (Negative); Cast Urine Automated 0 /lpf (0-5); Color Urine Yellow; Glucose Urine UA Trace (Negative); Ketones Urine Negative (Negative); Leukocyte Esterase Urine Negative (Negative); Nitrite Urine Negative (Negative); Protein Urine Negative (Negative); RBC Urine Automated 0-4 /hpf (0-4); Specific Gravity Urine 1.011 (1.000-1.030); Urobilinogen Urine Negative (Negative); pH Urine 7.5 (4.5-7.5)
--- NOTE | 2019-12-09 15:15 | Orthopedic Progress Note ---
Date of Service December 09, 2019 Assessment & Plan (1) Neurogenic claudication due to lumbar spinal stenosis: This time we will continue physical therapy await her urinalysis and labs to work-up her increased white count. This may just be postoperative elevation and demargination secondary to steroids. Hopefully discharge home tomorrow. Present on Admission?: Yes Subjective Back pain is controlled leg symptoms markedly improved. Physical Exam Physical Exam: Patient is comfortable is good strength testing. Results & Data Vital Signs (Past 12 Hours) Vital Signs Temp Pulse Resp BP BP Pulse Ox 12/09/19 12:00 36.9 C 96 H 18 126/74 94 12/09/19 08:57 104 H 141/82 H 12/09/19 07:30 36.8 C 102 H 20 132/80 94
[2019-12-09] MEDS: TRAZODONE HCL 50 MG TAB PO SCH (20:23)
[2019-12-09] MEDS: DOCUSATE SODIUM/SENNA 50/8.6MG TAB PO SCH (20:23)
[2019-12-09] MEDS: MAGNESIUM OXIDE 400 MG TAB PO SCH (20:23)
[2019-12-10 05:29] LABS: Basophils # (auto) 0.02 K/uL (0-0.2); Basophils % (auto) 0.2 %; Eosinophils # (auto) 0.39 K/uL (0-0.5); Eosinophils % (auto) 3.5 %; Hematocrit (blood only) 29.6 % (37-47); Hemoglobin 9.5 g/dL (12.0-16.0); Immature Granulocytes # (auto) 0.05 K/uL (0.00-0.02); Immature Granulocytes % (auto) 0.4 %; Lymphocytes # (auto) 1.81 K/uL (1.2-3.4); Lymphocytes % (auto) 16.1 %; Mean Corpuscular Hemoglobin 30.7 pg (25-34); Mean Corpuscular Hgb Conc 32.1 g/dL (32-36); Mean Corpuscular Volume 95.8 fL (80-100); Mean Platelet Volume 9.8 fL (7.4-10.4); Monocytes # (auto) 1.34 K/uL (0.11-0.59); Monocytes % (auto) 11.9 %; Neutrophils # (auto) 7.64 K/uL (1.4-6.5); Neutrophils % (auto) 67.9 %; Platelet Count 331 K/uL (130-400); RDW Coefficient of Variation 14.8 % (11.5-14.5); RDW Standard Deviation 51.6 fL (36.4-46.3); Red Blood Count 3.09 M/uL (4.2-5.4); White Blood Count 11.25 K/uL (4.8-10.8)
[2019-12-10] MEDS ORDERED: SODIUM CHLORIDE 0.9% 1000ML 1,000 ML IV ONE (05:38)
[2019-12-10 05:45] LABS: Albumin Level 1.9 gm/dl (3.4-5.0); BUN Creatinine Ratio 11.8 (10-20); Calcium 8.5 mg/dl (8.5-10.1); Creatinine Clr Calc Pharmacy 93.9 ml/min; Est GFR (African American) 108.4; Est GFR (Non-African American) 93.5; Potassium 3.9 mmol/L (3.5-5.1)
[2019-12-10 05:48] LABS: Albumin Globulin Ratio 0.5 (0.9-2); Bilirubin,Total 0.4 mg/dl (0.2-1); Globulin 3.7 gm/dl (2.5-4.0); Total Protein 5.6 gm/dl (6.4-8.2)
[2019-12-10] MEDS: POLYETHYLENE (MIRALAX) 17 GM PACK PO SCH (06:19)
[2019-12-10] MEDS: CHOLECALCIFEROL 1,000 UNITS TAB PO SCH (08:59)
[2019-12-10] MEDS: DULOXETINE HCL 30 MG CAP PO SCH (08:59)
[2019-12-10] MEDS: METOPROLOL SUCC 25MG EXT REL TAB PO SCH (08:59)
[2019-12-10] MEDS: ATORVASTATIN 40 MG TAB PO SCH (08:59)
[2019-12-10] MEDS: FERROUS SULFATE 325 MG TAB PO SCH (09:00)
[2019-12-10] MEDS: LORATADINE 10 MG TAB PO SCH (09:00)
[2019-12-10] MEDS: GABAPENTIN 300 MG CAP PO SCH (09:00)
[2019-12-10] MEDS: PANTOprazole 40 MG TAB PO SCH (09:00)
--- NOTE | 2019-12-10 09:38 | Hospitalist Progress Note ---
Date of Service December 10, 2019 Assessment & Plan (1) Neurogenic claudication due to lumbar spinal stenosis: S/P decompression and fusion POD #[address] Miller EBL: 150ml, CLAUDIO drain 300ml to date tolerated procedure well pain/wound management per ortho activity and therapy as directed by ortho Incentive spirometry Monitor H/H - hgb stable at 10.2 today (hgb 10.4 yesterday) (2) Paroxysmal atrial fibrillation: mildly tachycardic this morning, likely 2/2 to pain, rhythm controlled continue metoprolol Apixaban 5mg on hold due to recent procedure, recommend resume starting at discretion of Dr. Miller (3) HTN (hypertension): blood pressure controlled continue metoprolol (4) COPD (chronic obstructive pulmonary disease): no acute exac but wheezing at baseline, per patient pt prescribed Spiriva, states she hasn't used it in 2 years, "I don't need it." encourage incentive spirometry pt did require O2 supplementation over night, states she use to use O2 at HS at home, but unable to afford monitor O2 saturations, currently stable (5) Coronary artery disease: restart plavix once hemostasis achieved - resume at discretion of Dr. Miller Continue statin and metoprolol (6) Tobacco abuse: current smoker encouraged cessation declines nicotine patch Disposition: Panculture for Leukocytosis-DC today, WBCs are trending down, will continue to monitor cx and if positive will notify Dr Miller and PCP Follow up: Dr. Oconnor FULL CODE ROS-No Headache, No Visual Changes, No Nausea, No Vomiting, No Fever, No Chills, No Neck Pain or Stiffness, No Chest Pain, No Palpitations, No SOB, No RUSSO, No Cough, No Sputum, No Wheezing, No Abdominal Pain, No Diarrhea, No Hematemesis, No Hemoptysis, No Unexpected Weight Loss, No Flank pain, No Melena, No Hematochezia, No Frequency, No Urgency, No Burning, No Hematuria, No Rashes, No Diaphoresis. Appetite is Normal Physical Exam Gen-AAO x 3, NAD, Afebrile, Edentulous Head-NCAT, EOMI, PERRLA, Anicteric Sclera, No Posterior Pharyngeal Erythema Neck-Supple, No JVD, No Thyromegaly, No Masses, No LAD, No Bruits Lungs-Clear to Auscultation Bilaterally, No Rales, No Rhonchi, No Wheezing, No Crepitus Chest-Tachy, No S4, +S1, +S2, No S3, No Murmurs, No Rubs, No Gallops, No Ectopy Abdomen-Soft, Bowel Sounds Present, Non Tender, Non Distended, No Hepatomegaly, No Splenomegaly, No Palpable Masses, No Rebound, No Rigidity, No Guarding Musculoskeletal-Full Range of Motion Bilaterally, No CVAT Extremities-No Cyanosis, No Clubbing, No Edema Nuero-Cranial Nerves II-XII grossly intact, Motor WNL, DTRs WNL, Strength WNL, Non Focal Psych-Normal Mood Results & Data Vital Signs (Past 12 Hours) Vital Signs Temp Pulse Pulse Pulse Resp BP Pulse Ox 12/10/19 08:58 101 H 106/71 12/10/19 06:31 37.0 C 90 17 113/67 90 12/10/19 05:57 36.6 C 89 16 122/77 91 12/09/19 23:19 36.9 C 94 H 17 92/50 L 92
--- NOTE | 2019-12-10 09:49 | Discharge Summary ---
Date of Service December 10, 2019 Admission HPI Per Admitting Provider This is a 69-year-old female well-known to me that presents with chronic persistent back and leg pain. After failing extensive course of nonoperative care is here for surgical intervention. Principal Diagnosis Lumbar spinal stenosis with neurogenic claudication Discharge Data Allergies Allergy/AdvReac Type Severity Reaction Status Date / Time sumatriptan AdvReac Unknown advised to Verified 12/06/19 10:24 avoid d/t hx heart surgery varenicline AdvReac Unknown advised to Verified 12/06/19 10:24 avoid d/t hx heart surgery Consultations 12/06/19 16:19 Consult Case Management - Discharge Planning Routine Consult Hospitalist Routine Procedures Performed Operation Date: 12/06/19 11:55 Actual Procedures p L4-L5 Decompression and Fusion, Use of Osteoamp and Infuse, Spinal Cord Monitoring(Not Applicable) - Bret Miller DO s L5-S1 Hardware Removal(Not Applicable) - Bret Miller DO Ordered Studies 12/06/19 11:55 FL fluoroscopy <1hr Routine FL lumbar spine 2-3V Routine Hospital Course (1) Neurogenic claudication due to lumbar spinal stenosis: Patient with lumbar decompression fusion tolerated so was taken to the orthopedic floor postoperative. Postop day 1 she was up and ambulating progressed quickly to postop day #2 on postop day 3 she is markedly improved pain well controlled subsequent discharge home. Discharge orders instructions from the chart for further review. Total Time Total Time Spent Total Time Spent (In Minutes): 20 minutes Discharge Plan Discharge Items Patient Disposition: Home - Self-Care Reason For Visit: Radiculopathy, Lumbar Region, Other Bursal Cyst Discharge Diagnosis: Lumbar spinal stenosis with neurogenic claudication Activity: As commented below Non-emergency contact: Primary Care Provider Call non-emergency contact if: you have any medication questions Follow-up/Referrals: Juliane Oconnor DO [Primary Care Provider] - Diet: Regular Addtl Attending Provider Instructions: ACTIVITY RECOMMENDATIONS: SELF CARE INSTRUCTIONS AFTER THORACIC/LUMBAR FUSIONS 1. You may walk to your tolerance. It is good exercise for your legs and back. Expect some back and intermittent leg aches and pains. 2. You may perform "counter-top" level activities (make a sandwich, ayo with a project, etc.). 3. No bending or lifting of more than 10 pounds or back twisting of any nature (roll like a log when turning in bed). 4. You may ride in a car for 20-30 minutes at a time. No driving until after your first visit with your doctor. 5. Frequent changes of position and restricting sitting to 30 minutes at a time will help limit the amount of back spasms and stiffness you may experience. 6. You may discontinue the use of ambulatory aids (cane, crutches, etc.) once your strength and confidence allow. 7. You may destination sign repairer the shower and let water strike your incision when you arrive home at least once daily. Do not take a tub bath, sit in a hot tub or go into a swimming pool until after your first recheck in the office. SPECIAL CARE INSTRUCTIONS: VERY IMPORTANT TO READ AND REVIEW A. Your surgical incision has been closed with a cosmetic suture under the skin that will dissolve in about 6 weeks. In 14 days, you can use a pair of clean scissors and cut the suture that is left outside of the skin at the ends of your incision. 1. The small skin tapes can be removed 7 days after surgery if they have not fallen off by that point. 2. You may keep the wound open to air as much as possible to promote healing after post-op day number 5 unless told otherwise by your doctor. 3. If you think the wound looks like it is becoming infected (redness or worsening drainage) and/or you are experiencing fever, chill or worsening back pain and muscle spasms, contact the office so that we may evaluate you as soon as possible. B. Complications are uncommon, but please contact us if you have any signs or symptoms of: 1. wound infection (fever higher than 102.5 degrees F, redness, separation of wound, drainage, or increasing pain from the incision) 2. blood clots in legs (pain, swelling, redness and warmth in legs) 3. urinary tract infection (fever higher than 102.5 degrees F, burning upon urination or increased frequency of urination) 4. nerve problems (inability to walk on your toes or heels, numbness, loss of bowel or bladder control) 5. any other symptoms that concern you C. Please call the office at if you have any concerns or questions about your operation or recovery. D. No smoking! Smoking drastically decreases the chance of a solid fusion. E. Do not take any anti-inflammatory medications (Indocin, Advil, Motrin, Aspirin, Naprosyn, etc.) as these may inhibit the chance of a solid fusion. Tylenol is okay to take for pain. MANAGING PAIN AFTER SPINAL SURGERY 1. Narcotic medication is intended for short-term use and will be provided for surgical pain. Surgical pain usually lasts for a period of 4-6 weeks. Narcotic medication includes Percocet, Vicodin, Darvocet, Tylenol #3 or Lortab. 2. Longer-term pain is more appropriately treated with non-narcotic medication such as Tylenol ES. 3. Muscle spasm is not appropriately treated with narcotics. Muscle relaxers such as Soma, Flexeril or Skelaxin can be used along with Tylenol ES. 4. Remember that we all live with some "aches and pains". This is not unusual or uncommon after an injury or as we get older. a. Back pain is expected and may include muscle spasms for 4 to 6 weeks after surgery. The pain should gradually improve. If the pain worsens for no apparent reason, please contact the office. b. Intermittent leg pain may also be experienced and should not be concerned about unless it worsens for no apparent reason. If so, please contact the office. 5. We will provide appropriate medication within the normal guidelines of their prescribed use. We will also be very cautious and aware of potential abuse and extended duration of patients' medication needs. a. Pain medications are for your comfort and to assist with sleep and rest so that the tissue can heal. They are not provided in order to return to normal activity and should not be used through the day. To do so or worsening pain at night can result from ongoing tissue damage and development of tolerance to the prescribed medicine. 6. Please allow 2-3 days to process refills. Prescriptions will not be mailed but must be picked up at the office. FOLLOW UP VISIT: Keep your scheduled follow-up appointment. Any questions, please call the office at . Pending Studies at Discharge: No Stand-Alone Forms: My [employer], Smoking Cessation Medications and DC Order Prescriptions: New hydrocodone-acetaminophen 5-325 mg tablet See Rx Instructions .ROUTE .COMPLEX PRN (Reason: pain) Qty: 30 RF: 0 tramadol 50 mg tablet 50 mg PO Q6H PRN (Reason: pain, moderate) Qty: 30 RF: 0 Continued cyclobenzaprine 5 mg tablet 5 mg PO Q8H PRN (Reason: muscle spasm) RF: 0 loratadine 10 mg tablet 10 mg PO DAILY RF: 0 lorazepam 0.5 mg tablet 0.5 mg PO TID PRN (Reason: anxiety) RF: 0 metoclopramide HCl 10 mg tablet 10 mg PO QID PRN (Reason: nausea and vomiting) RF: 0 nitroglycerin 0.4 mg tablet, sublingual 0.4 mg SL UD PRN (Reason: chest pain) Qty: 1 RF: 0 omeprazole 20 mg capsule,delayed release(DR/EC) 20 mg PO BID RF: 0 pantoprazole 40 mg tablet,delayed release (DR/EC) 40 mg PO DAILY RF: 0 tiotropium bromide 18 mcg capsule, w/inhalation device 1 cap inhalation DAILY RF: 0 triamterene-hydrochlorothiazid 37.5-25 mg tablet 1 tab PO .COMPLEX PRN (Reason: edema) RF: 0 albuterol sulfate 90 mcg/actuation HFA aerosol inhaler 1 - 2 puff inhalation Q4H PRN (Reason: shortness of breath or wheezing) RF: 0 Eliquis 5 mg tablet 5 mg PO BID RF: 0 fluticasone propionate 220 mcg/actuation HFA aerosol inhaler 1 puffs inhalation BID RF: 0 gabapentin 300 mg capsule 300 mg PO TID RF: 0 atorvastatin 80 mg Tablet 80 mg PO QAM RF: 0 cetirizine [Allergy Relief (cetirizine)] 10 mg Tablet 10 mg PO QAM RF: 0 clopidogrel [Plavix] 75 mg Tablet 75 mg PO QAM RF: 0 acetaminophen [Tylenol Extra Strength] 500 mg Tablet 2 tab PO Q6H PRN (Reason: Pain) RF: 0 trazodone 150 mg Tablet 150 mg PO HS RF: 0 ferrous sulfate [Iron (ferrous sulfate)] 325 mg (65 mg iron) Tablet 325 mg PO DAILY RF: 0 cyanocobalamin (vitamin B-12) 1,000 mcg Tablet, Sublingual 1,000 mcg SUBLINGUAL QAM RF: 0 metoprolol succinate 25 mg Tablet Extended Release 24 Hr 25 mg PO QAM RF: 0 duloxetine [Cymbalta] 30 mg Capsule,Delayed Release(Dr/Ec) 30 mg PO QAM RF: 0 cholecalciferol (vitamin D3) [Vitamin D3] 1,000 unit Tablet 1,000 unit PO DAILY RF: 0 magnesium oxide 400 mg Capsule 400 mg PO HS RF: 0 Discharge Orders: Discharge Order (Routine); Ordered 12/10/19 Ordered By: Bret Miller Admission Data Admit Date/Time: 12/06/19 14:46 Attending Provider: Bret Miller Admit Provider: Bret Miller Primary Care Provider: Juliane Oconnor Other Providers: Fausto Phillips Other Interventions: Discharge Summary Assessment (RN) Last Done: 12/10/19 09:35
== END 2019-12-10 11:02 | disposition home or self-care (01) | DRG 455 ==
LOC: ASU 09:52 → 3E 14:46

== ENCOUNTER 2022-09-17 23:33 | Inpatient (IN) ==
[2022-09-18] MEDS ORDERED: PROMETHAZINE HCL 12.5 MG in SODIUM CHLORIDE 0.9% 50 ML IV PRN (00:02)
[2022-09-18] MEDS ORDERED: LORazepam 0.5 MG TAB PO PRN (00:02)
[2022-09-18] MEDS ORDERED: oxyCODONE HCL IR 5 MG TAB (IMMEDIATE RELEASE) PO PRN (00:02)
[2022-09-18] MEDS ORDERED: LACTATED RINGER'S 1,000 ML IV STA (00:19)
[2022-09-18 01:24] LABS: Basophils # (auto) 0.02 K/uL (0-0.2); Basophils % (auto) 0.2 %; Eosinophils # (auto) 0.03 K/uL (0-0.50); Eosinophils % (auto) 0.2 %; Hematocrit (blood only) 35.8 % (34.1-44.9); Hemoglobin 11.8 g/dl (12.0-16.0); Immature Granulocytes # (auto) 0.07 K/uL (0.00-0.02); Immature Granulocytes % (auto) 0.5 %; Lymphocytes # (auto) 2.27 K/uL (1.2-3.4); Lymphocytes % (auto) 17.8 %; Mean Corpuscular Hemoglobin 30.3 pg (25.0-34.0); Mean Corpuscular Volume 91.8 fL (80.0-100.0); Mean Platelet Volume 9.1 fL (9.4-12.3); Monocytes # (auto) 1.25 K/uL (0.24-0.82); Monocytes % (auto) 9.8 %; Neutrophils # (auto) 9.14 K/uL (1.4-6.5); Neutrophils % (auto) 71.5 %; Platelet Count 406 K/uL (130-400); RDW Coefficient of Variation 14.9 % (11.5-14.5); RDW Standard Deviation 50.4 fL (36.4-46.3); White Blood Count 12.78 K/ul (4.8-10.8)
[2022-09-18 01:37] LABS: Partial Thromboplastin Ratio 1.1; Partial Thromboplastin Time 30.8 Seconds (21.0-31.0)
[2022-09-18 02:25] LABS: BUN Creatinine Ratio 9.9 (10-20); Calcium 8.2 mg/dl (8.5-10.1); Creatinine Clr Calc Pharmacy 71.1 ml/min; Est GFR (African American) 98.6 ml/min; Est GFR (Non-African American) 85.1 ml/min; Magnesium 1.8 mg/dl (1.7-2.4); Potassium 3.7 mmol/L (3.5-5.1)
[2022-09-18] MEDS: GABAPENTIN 300 MG CAP PO SCH ×4 (02:29→21:34)
[2022-09-18] MEDS: traZODone HCL 50 MG TAB PO SCH ×2 (02:30→21:34)
[2022-09-18] MEDS: ACETAMINOPHEN 325 MG TAB PO PRN (02:33)
[2022-09-18] MEDS ORDERED: MAGNESIUM SULFATE / D5W 1 GM/100 ML BAG IV ONE ×2 (02:42→22:29)
--- NOTE | 2022-09-18 02:42 | History & Physical Report ---
Date of Service September 17, 2022 Assessment & Plan (1) Recurrent syncope: Plan: Likely secondary to orthostasis given borderline BP, ketonuria and hemoconcentration Rule out structural cardiac dysfunction/arrhythmia given patient's cardiac history Rule out metastatic brain tumor given headache symptoms in light of recent esophageal cancer diagnosis Troponin elevation secondary to tachycardia hx CAD status post CABG status post stent, hx PVD PAF on Eliquis history of cardiomyopathy (EF 55 to 60%, TTE 2016), patient on the dry side history TIA hypertension, BP on the lower side hyperlipidemia, on statin Rx Williamson's esophagus/recent diagnosis of esophageal adenocarcinoma, outpatient Oncology consultation contemplated chronic anemia, hemoglobin better than baseline likely secondary to hemoconcentration prediabetes, hemoglobin A1c of 5.8 last May 2022 Right shoulder ecchymosis secondary to fall in the setting of Eliquis Rx ongoing tobacco abuse OBS Medical telemetry orthostatic vitals, TTE, Brain MRI for recurrent syncope work-up IVF Follow troponin Hold Eliquis for now given right shoulder ecchymosis, resume if H&H stable and brain MRI negative for malignancy. Nicotine patch as needed DVT prophylaxis. TEDs while Eliquis on hold (RE right shoulder ecchymosis, SCDs contraindicated in PAD history) Full code Text document was generated using [employer] voice recognition software. It may contain grammatical or spelling errors. Kindly contact undersigned for clarification of any documentation item in question. Admission and Anticipated Discharge Date Admission Date: September 17, 2022 History of Present Illness Chief Complaint: recurrent syncope Primary Care Provider: Juliane Oconnor DO History obtained from patient and records. Medical history significant for CAD status post CABG status post stent, PAF on Eliquis, history of cardiomyopathy (EF 55 to 60%, TTE 2017), PVD, history TIA, hypertension, hyperlipidemia, Williamson's esophagus, recent diagnosis of esophageal adenocarcinoma, prediabetes, chronic anemia (baseline hemoglobin 9- 10), ongoing tobacco abuse. Last 2019 under Orthopedics spine service for lumbar spine stenosis status post decompression surgery. Patient recently found to have esophageal adenocarcinoma following outpatient EGD 2 weeks ago. Outpatient Oncology consultation contemplated. Patient appetite worse than usual the last few weeks. Patient drinking green tea for fluids. Patient denies depression. Three recurrent syncopal events at home since last night preceded by lightheadedness. All episodes noted in the upright position. No chest pain, no SOB, no belly pain. No tongue biting, no incontinence, no witnessed seizures. One syncopal event leading to fall causing some bruising on the right shoulder. Tolerable right shoulder discomfort. Patient brought to [facility] ER for evaluation. SBP noted to be 100. Patient tachycardic at 115. Other pertinent labs include WBC 15, high-sensitivity troponin of 94; UA showed ketones. Patient noted achy frontal headache symptoms during ER stay. Transfer recommended by hospitalist on-call because [facility] unable to do Brain MRI as per ER provider. Patient requested to be transferred to [facility]. 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 Allergies Allergy/AdvReac Type Severity Reaction Status Date / Time sumatriptan AdvReac Unknown advised to Verified 09/03/22 09:04 avoid d/t hx heart surgery varenicline AdvReac Unknown advised to Verified 09/03/22 09:04 avoid d/t hx heart surgery Home Medications Medication Instructions Recorded Confirmed Type atorvastatin 80 mg tablet 80 mg PO HS 03/22/19 09/18/22 History duloxetine 30 mg capsule,delayed 30 mg PO QAM 03/22/19 09/18/22 History release (Cymbalta) metoprolol succinate 25 mg 25 mg PO QAM 03/22/19 09/18/22 History tablet,extended release 24 hr trazodone 150 mg tablet 150 mg PO HS 03/22/19 09/18/22 History nitroglycerin 0.4 mg sublingual 0.4 mg sublingual UD PRN chest 06/24/19 09/18/22 History tablet pain #1 tab apixaban 5 mg tablet (Eliquis) 5 mg PO BID 09/18/22 09/18/22 History cyclobenzaprine 10 mg tablet 10 mg PO HS PRN Muscle Spasm 09/18/22 09/18/22 History gabapentin 300 mg capsule 300 mg PO TID 09/18/22 09/18/22 History metoclopramide HCl 10 mg tablet 10 mg PO BID 09/18/22 09/18/22 History omeprazole 40 mg capsule,delayed 40 mg PO QAM 09/18/22 09/18/22 History release Past Med/Surg History Medical History Anxiety Barretts esophagus Carotid artery disease Chronic obstructive pulmonary disease inh prn CKD (chronic kidney disease), stage III Coronary artery disease CABG x 2 (2009) cardiac stent x 1 (2014 - LCx) Degenerative disc disease Depression GERD (gastroesophageal reflux disease) controlled Hyperlipidemia Hypertension Learning disability cannot spell/limited reading skills Migraine "haven't had one in awhile" Myocardial Infarction "silent" [place]- remote/several years ago Osteoarthritis PAD (peripheral artery disease) <50% aorta-iliac system stenosis per 09/26/19 duplex Paroxysmal atrial fibrillation Peripheral neuropathy LLE PVD (peripheral vascular disease) Stroke "silent" stroke noted incidentally on imaging several years ago= no residual issues Surgical History Fusion of spine LUMBAR ACDF C5-C7: 10/30/17: Grade view 1, MAC#3, ETT 7.0 at [facility] History of bilateral tubal ligation History of cardiac cath CABG x 2 (2009); Donna; f/u dr kemp, [place] cardiac stent x 1 (2014 - LCx); [facility] History of cholecystectomy History of colonoscopy History of esophagogastroduodenoscopy (EGD) History of Lauren fundoplication History of tonsillectomy History of tooth extraction History of total abdominal hysterectomy and bilateral salpingo-oophorectomy History of total hip arthroplasty LEFT History of total knee replacement RT/LEFT Family History Father Family history of diabetes mellitus Social History Smoking Status: Current every day smoker Cigarettes Per Day: 20; Second Hand Exposure: No; Tobacco Cessation Education Requested by Patient: No Hx Alcohol Use: No Hx Substance Use: No Preferred Language: Syrian Communication Ability: Effective Insole Rasper Required: No Beliefs That Will Affect Care: None marital status: Current Living Situation: Spouse Other Information That Helps Us Care for You: No Feels Safe at Home: Yes Safety Concerns: Feels Safe At This Time Assistive Devices: Denture - Upper and Denture - Lower Review of Systems Review of Systems: As per HPI, all other systems reviewed and negative Physical Exam Physical Exam: GENERAL: Comfortable, pleasant, no respiratory distress SKIN: Pallor, warm HEENT: Pale palpebral conjunctivae, no ptosis, dry buccal mucosa NECK : Supple, no tenderness CHEST : Decreased breath sounds, occasional expiratory wheezes, no tenderness HEART : RRR, no obvious murmurs ABDOMEN: Some distention, nontender EXTREMITIES : No LE swelling/tenderness, no other conspicuous deformities noted NEUROLOGIC : Coherent, no facial asymmetry, no other gross focality Results & Data Results & Data ([facility]) Vital Signs (Past 12 Hours) Vital Signs Temp Resp BP Pulse Ox O2 Del Method 09/17/22 23:35 36.9 C 20 126/73 93 Room Air Laboratory Results From [facility] (09/17/22) Hemoglobin 11, hematocrit 39, WBC 15, platelets 421 Serum sodium 135, potassium 3.8, chloride 98, CO2 25, BUN 8, creatinine 1, glucose 138 High-sensitivity troponin was 94 (normal value 0-50) UA ketones; WBC and nitrite negative Diagnostic Findings [facility] imaging results (09/17/22) CT head: No acute intracranial abnormality. Chronic lacunar infarctions, bilateral cerebellar hemispheres. CT chest abdomen, pelvis: No thoracic aortic aneurysm or dissection. No central pulmonary embolism. Few groundglass reticular opacities in the right upper lobe, chronic scarring versus pneumonia, scarring is favored. Few nodular densities in the lung with low suspicion. Vent dependent mild right pleural thickening likely related to remote insult. Marked fusiform mural thickening lower esophagus consistent with reported history of cervical cancer. No acute findings in the abdomen. EKG from [facility] (09/17/22) as per interpretation: Rate 115, sinus tachycardia, normal axis, T wave abnormalities septal leads
[2022-09-18] MEDS ORDERED: POTASSIUM CHLORIDE PWD 20 MEQ PACK PO STA (02:43)
[2022-09-18 03:17] LABS: Troponin I High Sensitivity 71.5 pg/ml (0-14)
[2022-09-18 06:07] LABS: Hematocrit (blood only) 32.8 % (34.1-44.9); Hemoglobin 10.9 g/dl (12.0-16.0)
[2022-09-18 07:24] LABS: Estimated Average Glucose 117 mg/dl; Hemoglobin A1C 5.7 % (4.5-5.6)
--- NOTE | 2022-09-18 08:50 | Magnetic Resonance Report ---
Brain MRI WITH AND WITHOUT CONTRAST HISTORY: Syncope. Headache. History of lung cancer. TECHNIQUE: Multiplanar multisequence MRI of the brain was performed both before and after the intrave nous administration of contrast. COMPARISON STUDY: Head CT 12/22/2016. FINDINGS: There is no mass, hematoma, midline shift, or acute infarct. The paranasal sinuses are flo r. The mastoid air cells are clear. The ventricles and sulci demonstrate mild age-related involutiona l changes. Scattered foci of T2 hyperintensity seen within the periventricular and subcortical white matter are nonspecific but suggestive of mild microvascular ischemic changes. The major vascular flow voids at the skull base are well-maintained. No abnormal enhancement to suggest intracranial metasta tic disease. IMPRESSION: 1. No acute infarct or intracranial hemorrhage. 2. No evidence for intracranial metastatic disease. ACT 112: Negative or not required by law. Electronically signed by: John Jones M.D. 09/18/2022 8:48 AM
[2022-09-18] MEDS: METOCLOPRAMIDE HCL 10 MG TABLET PO SCH ×2 (08:58→21:34)
[2022-09-18] MEDS: PANTOprazole 40 MG TAB PO SCH (08:58)
[2022-09-18] MEDS: METOPROLOL SUCC 25MG EXT REL TAB PO SCH (08:58)
[2022-09-18] MEDS: APIXABAN 5 MG TABLET PO SCH ×2 (08:58→21:34)
[2022-09-18] MEDS: DULoxetine HCL 30 MG CAP PO SCH (08:59)
[2022-09-18] MEDS ORDERED: INFLUENZA VACCINE HIGH DOSE PF 65+ 0.7 ML SYR IM ONE (09:00)
[2022-09-18] MEDS ORDERED: SODIUM CHLORIDE 0.9% 1000ML 1,000 ML IV SCH (12:45)
--- NOTE | 2022-09-18 15:02 | Hospitalist Progress Note ---
Date of Service September 18, 2022 Assessment & Plan (1) Recurrent syncope: Plan 72-year-old lady with PMH of CAD status post CABG and status post stent, PAF on Eliquis, CM [EF 55 to 60% on TTE 2017], PVD, TIA, HTN, HLD, Williamson's esophagus, recent diagnosis of esophageal adenocarcinoma, prediabetes, chronic anemia [baseline hemoglobin 9-10], ongoing tobacco abuse presented to our ED 09/17 with complaint of multiple syncope, decreased appetite, nausea and vomiting. Recurrent syncope Nausea/vomiting Recent diagnosis of esophageal carcinoma Likely demand ischemia secondary to tachycardia Patient recently found to have esophageal adenocarcinoma following outpatient EGD 2 weeks ago [employer], outpatient oncology consultation contemplated. Patient presented with recurrent syncope likely secondary to nausea/vomiting on the background of recent diagnosis of esophageal carcinoma. Patient reported 3 recurrent syncopal events at home since 1-2 days [employer] preceded by lightheadedness --all events noted in upright position. Patient reports decreasing appetite due to nausea/vomiting that follows after each meal. Outpatient CT head with no acute intracranial abnormality, chronic lacunar infarction bilateral cerebral hemispheres noted. 09/18 MRI head: No acute findings, no evidence for intracranial metastasis. Few punctate old lacunar infarcts noted within the cerebral hemispheres. F/u ECHO At presentation, WBC appears minimally elevated [appears at baseline elevation], procalcitonin negative, troponin mildly elevated but flat trended/patient with no chest pain, hemoglobin around her baseline, EKG with sinus tachycardia. Orthostatic vitals positive. Continue with IV fluids, Zofran half an hour prior to meals to avoid nausea/vomiting, if nausea vomiting does not control consider GI consult. Patient advised to take time/advised for slow transition between lying/sitting/standing position changes. Patient will need follow-up with oncology as an outpatient upon discharge. Continue with telemetry monitoring, my DC flexeril upon DC as this is known to give hypotension. Other chronic medical conditions: CAD status post CABG/stent, PVD, PAF on Love luiz, CM, TIA, HTN, HLD, Williamson's esophagus, chronic anemia, prediabetes, ongoing tobacco abuse --->> continue with/resume home meds as and when able. DVT prophylaxis: On Eliquis Full code Text document was generated using voice recognition software. It may contain grammatical or spelling errors. Kindly contact undersigned for clarification of any documentation item in question. Admission and Anticipated Discharge Date Admission Date: September 17, 2022 Subjective Patient seen and examined at bedside as a follow-up of recurrent syncope, vomiting and decreased appetite. Patient was lying in bed, on room air, NAD, reports nausea/vomiting immediately after eating food since last few weeks, has decreased appetite due to that, denies any fever or headache or chills or sore throat or cough, reports dizziness while standing up from sitting position, reports having 1 diarrheal bowel movement today, reports feeling weak and tired, denies changes in her bladder habits. Physical Exam Physical Exam: GENERAL: Alert and oriented x3. NAD, on RA. appears ill/frail. HEENT: No pallor, no icterus. Pupils equal, round and reactive to light. Oral mucosa moist. NECK: No JVD, no neck masses. HEART: S1 and S2 heard. Tachycardia. No murmur, no gallop. RESPIRATORY SYSTEM: Normal AP diameter. No accessory muscle use. No wheezing, no crackles. ABDOMEN: Soft, bowel sounds present, nontender, no distention. CENTRAL NERVOUS SYSTEM: No facial droop. Speech is clear. Obeys simple commands. Moves extremities. EXTREMITIES: No edema, no erythema seen. Results & Data Results & Data ([facility]) Vital Signs (Past 12 Hours) Vital Signs Temp Pulse Pulse Resp BP Pulse Ox O2 Del Method 09/18/22 14:37 37.5 C 94 H 18 99/61 L 92 Room Air 09/18/22 10:32 36.7 C 127 H 19 141/83 H 93 Room Air 09/18/22 10:04 Room Air 09/18/22 09:19 98 H 102/68 09/18/22 07:08 36.6 C 88 18 85/52 L 94 Room Air 09/18/22 06:55 90 09/18/22 02:56 37 C 85 20 119/73 93 Room Air
--- NOTE | 2022-09-18 16:03 | XCELERA ---
[id number]
[2022-09-18] MEDS: ONDANSETRON INJ 2 MG/ML 2 ML VIAL IV PRN (16:58)
[2022-09-18] MEDS: ATORVASTATIN 40 MG TAB PO SCH (21:34)
[2022-09-18] MEDS ORDERED: POTASSIUM CHLORIDE CRTAB 20 MEQ TABCR PO STA (22:28)
[2022-09-18] MEDS ORDERED: LACTATED RINGER'S 1,000 ML IV ONE (22:28)
[2022-09-18] MEDS ORDERED: DIGOXIN 250 MCG in SYRINGE 9 ML IV ONE ×2 (22:45→23:45)
[2022-09-19] MEDS ORDERED: LACTATED RINGER'S 1,000 ML IV ONE
[2022-09-19 06:06] LABS: Hemoglobin 9.9 g/dl (12.0-16.0); Mean Corpuscular Hemoglobin 30.1 pg (25.0-34.0); Mean Corpuscular Hgb Conc 31.9 g/dL (32.0-36.0); Mean Corpuscular Volume 94.2 fL (80.0-100.0); Mean Platelet Volume 9.1 fL (9.4-12.3); Platelet Count 311 K/uL (130-400); RDW Coefficient of Variation 15.3 % (11.5-14.5); RDW Standard Deviation 53.1 fL (36.4-46.3); Red Blood Count 3.29 M/uL (3.93-5.22); White Blood Count 10.47 K/ul (4.8-10.8)
[2022-09-19 06:18] LABS: BUN Creatinine Ratio 5.6 (10-20); Calcium 7.7 mg/dl (8.5-10.1); Creatinine Clr Calc Pharmacy 93.5 ml/min; Est GFR (African American) 109.3 ml/min; Est GFR (Non-African American) 94.3 ml/min; Magnesium 2.2 mg/dl (1.7-2.4); Phosphorus 3.7 mg/dl (2.5-4.9); Potassium 4.6 mmol/L (3.5-5.1)
--- NOTE | 2022-09-19 08:42 | Electrocardiogram Report ---
Test Reason : Blood Pressure : / mmHG Vent. Rate : 110 BPM Atrial Rate : 110 BPM P-R Int : 180 ms QRS Dur : 086 ms QT Int : 344 ms P-R-T Axes : 052 048 037 degrees QTc Int : 465 ms Sinus tachycardia Nonspecific T wave abnormality Septal leads Otherwise normal ECG When compared with ECG of 23-MAR-2017 16:46, Vent. rate has increased BY 42 BPM Nonspecific T wave abnormality has replaced inverted T waves in Anterior leads Confirmed by Fernando Avelar ([id number]) on 09/19/2022 8:42:44 AM Referred By: Alexis Scanlon Confirmed By:Fernando Avelar
[2022-09-19] MEDS: DULoxetine HCL 30 MG CAP PO SCH (10:07)
[2022-09-19] MEDS: GABAPENTIN 300 MG CAP PO SCH ×3 (10:07→20:37)
[2022-09-19] MEDS: METOCLOPRAMIDE HCL 10 MG TABLET PO SCH ×2 (10:07→20:38)
[2022-09-19] MEDS: APIXABAN 5 MG TABLET PO SCH ×2 (10:07→20:37)
[2022-09-19] MEDS: PANTOprazole 40 MG TAB PO SCH (10:07)
[2022-09-19] MEDS ORDERED: MIDODRINE HCL 2.5 MG TAB PO ONE (10:33)
[2022-09-19] MEDS: METOPROLOL SUCC 25MG EXT REL TAB PO SCH (11:25)
[2022-09-19] MEDS: ONDANSETRON INJ 2 MG/ML 2 ML VIAL IV PRN (11:25)
--- NOTE | 2022-09-19 16:17 | Hospitalist Progress Note ---
Date of Service September 19, 2022 Assessment & Plan (1) Recurrent syncope: Plan 72-year-old lady with PMH of CAD status post CABG and status post stent, PAF on Eliquis, CM [EF 55 to 60% on TTE 2017], PVD, TIA, HTN, HLD, Williamson's esophagus, recent diagnosis of esophageal adenocarcinoma, prediabetes, chronic anemia [baseline hemoglobin 9-10], ongoing tobacco abuse presented to our ED 09/17 with complaint of multiple syncope, decreased appetite, nausea and vomiting. Recurrent syncope Nausea/vomiting Recent diagnosis of esophageal carcinoma Likely demand ischemia secondary to tachycardia Patient recently found to have esophageal adenocarcinoma following outpatient EGD 2 weeks ago [employer], outpatient oncology consultation contemplated. Patient presented with recurrent syncope likely secondary to nausea/vomiting on the background of recent diagnosis of esophageal carcinoma. Patient reported 3 recurrent syncopal events at home since 1-2 days [employer] preceded by lightheadedness --all events noted in upright position. Patient reports decreasing appetite due to nausea/vomiting that follows after each meal. Outpatient CT head with no acute intracranial abnormality, chronic lacunar infarction bilateral cerebral hemispheres noted. 09/18 MRI head: No acute findings, no evidence for intracranial metastasis. Few punctate old lacunar infarcts noted within the cerebral hemispheres. 09/18/2022 echo: EF 60 to 65%, grade 2 diastolic dysfunction. Moderate concentric LVH. At presentation, WBC appears minimally elevated [appears at baseline elevation], procalcitonin negative, troponin mildly elevated but flat trended/patient with no chest pain, hemoglobin around her baseline, EKG with sinus tachycardia. Orthostatic vitals positive. Patient reports being able to eat and not throwing up, hold IV fluids for now. Continue Zofran half an hour prior to meals to avoid nausea/vomiting, if nausea vomiting does not control consider GI consult Patient advised to take time/advised for slow transition between lying/sitting/standing position changes. Patient will need follow-up with oncology as an outpatient upon discharge. Continue with telemetry monitoring, may DC flexeril upon DC as this is known to give hypotension. Midodrine added, orthostatic vitals tomorrow a.m., PT/OT, likely DC in next 1 to 2 days with improvement in her strength/orthostasis/appetite. Other chronic medical conditions: CAD status post CABG/stent, PVD, PAF on Eliquis, CM, TIA, HTN, HLD, Williamson's esophagus, chronic anemia, prediabetes, ongoing tobacco abuse --->> continue with/resume home meds as and when able. DVT prophylaxis: On Eliquis Full code Text document was generated using voice recognition software. It may contain grammatical or spelling errors. Kindly contact undersigned for clarification of any documentation item in question. Admission and Anticipated Discharge Date Admission Date: September 19, 2022 Subjective Patient seen and examined at bedside as a follow-up of recurrent syncope, vomiting and decreased appetite. Patient was lying in bed, on room air, NAD, patient reports feeling better, no nausea since yesterday late morning, adequate appetite without vomiting today morning, was still hypotensive on standing up with PT/OT today per RN. Patient denies any fever or headache or chills or sore throat or cough or other review of symptoms. Overnight patient was sinus tachycardic, received digoxin dose, received IV fluid resuscitation, heart rate better controlled in the morning and afternoon. Physical Exam Physical Exam: GENERAL: Alert and oriented x3. NAD, on RA. appears ill/frail. HEENT: No pallor, no icterus. Pupils equal, round and reactive to light. Oral mucosa moist. NECK: No JVD, no neck masses. HEART: S1 and S2 heard. Tachycardia. No murmur, no gallop. RESPIRATORY SYSTEM: Normal AP diameter. No accessory muscle use. No wheezing, no crackles. ABDOMEN: Soft, bowel sounds present, nontender, no distention. CENTRAL NERVOUS SYSTEM: No facial droop. Speech is clear. Obeys simple commands. Moves extremities. EXTREMITIES: No edema, no erythema seen. Results & Data Results & Data ([facility]) Vital Signs (Past 12 Hours) Vital Signs Temp Pulse Pulse Resp BP BP Pulse Ox 09/19/22 16:04 37.3 C 99 H 18 108/68 91 09/19/22 15:48 97 H 09/19/22 11:31 95 09/19/22 11:08 37.0 C 101 H 18 128/79 95 09/19/22 07:33 36.6 C 97 H 18 102/69 93 09/19/22 07:19 97 H O2 Del Method 09/19/22 16:04 Room Air 09/19/22 15:48 09/19/22 11:31 09/19/22 11:08 Room Air 09/19/22 07:33 Room Air 09/19/22 07:19
[2022-09-19] MEDS: MIDODRINE HCL 2.5 MG TAB PO SCH (17:34)
[2022-09-19] MEDS ORDERED: SODIUM CHLORIDE 0.45 % 1,000 ML IV SCH (18:15)
[2022-09-19] MEDS: ACETAMINOPHEN 325 MG TAB PO PRN (19:38)
[2022-09-19] MEDS: ATORVASTATIN 40 MG TAB PO SCH (20:37)
[2022-09-19] MEDS: traZODone HCL 50 MG TAB PO SCH (20:42)
[2022-09-19 23:44] LABS: BUN Creatinine Ratio 4.3 (10-20); Creatinine Clr Calc Pharmacy 72.3 ml/min; Est GFR (African American) 100.3 ml/min; Est GFR (Non-African American) 86.6 ml/min; Potassium 4.2 mmol/L (3.5-5.1)
[2022-09-20] MEDS ORDERED: SODIUM CHLORIDE 0.9% 1000ML 1,000 ML IV ONE (01:39)
[2022-09-20 06:20] LABS: Hematocrit (blood only) 31.9 % (34.1-44.9); Hemoglobin 10.2 g/dl (12.0-16.0); Mean Corpuscular Hemoglobin 29.8 pg (25.0-34.0); Mean Corpuscular Volume 93.3 fL (80.0-100.0); Mean Platelet Volume 9.3 fL (9.4-12.3); Platelet Count 326 K/uL (130-400); RDW Standard Deviation 51.3 fL (36.4-46.3); Red Blood Count 3.42 M/uL (3.93-5.22)
[2022-09-20 07:20] LABS: Calcium 8.1 mg/dl (8.5-10.1); Creatinine Clr Calc Pharmacy 84.3 ml/min; Est GFR (African American) 105.5 ml/min; Est GFR (Non-African American) 91.1 ml/min; Potassium 4.2 mmol/L (3.5-5.1)
[2022-09-20] MEDS: PANTOprazole 40 MG TAB PO SCH (08:04)
[2022-09-20] MEDS: MIDODRINE HCL 2.5 MG TAB PO SCH ×3 (08:04→16:39)
[2022-09-20] MEDS: METOCLOPRAMIDE HCL 10 MG TABLET PO SCH ×2 (08:04→23:03)
[2022-09-20] MEDS: GABAPENTIN 300 MG CAP PO SCH ×3 (08:04→23:03)
[2022-09-20] MEDS: APIXABAN 5 MG TABLET PO SCH ×2 (08:04→23:04)
[2022-09-20] MEDS: METOPROLOL SUCC 25MG EXT REL TAB PO SCH (08:04)
[2022-09-20] MEDS: DULoxetine HCL 30 MG CAP PO SCH (08:04)
[2022-09-20] MEDS ORDERED: LEVALBUTEROL HCL 1.25 MG/3 ML NEB NEB PRN (09:39)
--- NOTE | 2022-09-20 10:00 | XRay Report ---
XR chest 1V portable CLINICAL HISTORY: wheezing TECHNIQUE: Single frontal radiograph of the chest was obtained. Comparison: Comparison is made to chest radiographs 11/03/2019 FINDINGS: Median sternotomy wires are unchanged. The cardiomediastinal silhouette is normal. Right lower lung a telectasis is noted. There is right pleural thickening, similar to prior exam. Trace bilateral pleura l effusions cannot be excluded. IMPRESSION: Right lower lung atelectasis is seen. There is right pleural thickening, unchanged from prior. Trace bilateral pleural effusions cannot be excluded. ACT 112: Negative or not required by law. Electronically signed by: Louie Hardy M.D. 09/20/2022 9:59 AM
[2022-09-20] MEDS: ACETAMINOPHEN 325 MG TAB PO PRN ×3 (10:56→23:00)
--- NOTE | 2022-09-20 16:09 | Discharge Summary ---
Date of Service September 20, 2022 Admission HPI Per Admitting Provider History obtained from patient and records. Medical history significant for CAD status post CABG status post stent, PAF on Eliquis, history of cardiomyopathy (EF 55 to 60%, TTE 2017), PVD, history TIA, hypertension, hyperlipidemia, Williamson's esophagus, recent diagnosis of esophageal adenocarcinoma, prediabetes, chronic anemia (baseline hemoglobin 9- 10), ongoing tobacco abuse. Last confinement 2019 under Orthopedics spine service for lumbar spine stenosis status post decompression surgery. Patient recently found to have esophageal adenocarcinoma following outpatient EGD 2 weeks ago. Outpatient Oncology consultation contemplated. Patient appetite worse than usual the last few weeks. Patient drinking green tea for fluids. Patient denies depression. Three recurrent syncopal events at home since last night preceded by lightheadedness. All episodes noted in the upright position. No chest pain, no SOB, no belly pain. No tongue biting, no incontinence, no witnessed seizures. One syncopal event leading to fall causing some bruising on the right shoulder. Tolerable right shoulder discomfort. Patient brought to [facility] ER for evaluation. SBP noted to be 100. Patient tachycardic at 115. Other pertinent labs include WBC 15, high-sensitivity troponin of 94; UA showed ketones. Patient noted achy frontal headache symptoms during ER stay. Transfer recommended by hospitalist on-call because [facility] unable to do Brain MRI as per ER provider. Patient requested to be transferred to [facility]. 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 Admission Exam Per Admitting Provider GENERAL: Comfortable, pleasant, no respiratory distress SKIN: Pallor, warm HEENT: Pale palpebral conjunctivae, no ptosis, dry buccal mucosa NECK : Supple, no tenderness CHEST : Decreased breath sounds, occasional expiratory wheezes, no tenderness HEART : RRR, no obvious murmurs ABDOMEN: Some distention, nontender EXTREMITIES : No LE swelling/tenderness, no other conspicuous deformities noted NEUROLOGIC : Coherent, no facial asymmetry, no other gross focality Principal Diagnosis Recurrent syncope Nausea/vomiting Recent diagnosis of esophageal carcinoma Likely demand ischemia secondary to tachycardia Orthostatic hypotension Discharge Exam GENERAL: Alert and oriented x3. NAD, on RA. HEENT: No pallor, no icterus. Pupils equal, round and reactive to light. Oral mucosa moist. NECK: No JVD, no neck masses. HEART: S1 and S2 heard. Tachycardia. No murmur, no gallop. RESPIRATORY SYSTEM: Normal AP diameter. No accessory muscle use. No wheezing, no crackles. ABDOMEN: Soft, bowel sounds present, nontender, no distention. CENTRAL NERVOUS SYSTEM: No facial droop. Speech is clear. Obeys simple commands. Moves extremities. EXTREMITIES: No edema, no erythema seen. Discharge Data Allergies Allergy/AdvReac Type Severity Reaction Status Date / Time sumatriptan AdvReac Unknown advised to Verified 09/03/22 09:04 avoid d/t hx heart surgery varenicline AdvReac Unknown advised to Verified 09/03/22 09:04 avoid d/t hx heart surgery Ordered Studies 09/18/22 01:28 MRI Brain [MR brain wo/w con] Urgent Hospital Course (1) Recurrent syncope: Plan 72-year-old lady with PMH of CAD status post CABG and status post stent, PAF on Eliquis, CM [EF 55 to 60% on TTE 2017], PVD, TIA, HTN, HLD, Williamson's esophagus, recent diagnosis of esophageal adenocarcinoma, prediabetes, chronic anemia [baseline hemoglobin 9-10], ongoing tobacco abuse presented to our ED 09/17 with complaint of multiple syncope, decreased appetite, nausea and vomiting. 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 Patient presented with recurrent syncope likely secondary to nausea/vomiting on the background of recent diagnosis of esophageal carcinoma. Patient reported 3 recurrent syncopal events at home since 1-2 days CATTLE DIPPER preceded by lightheadedness --all events noted in upright position. Patient reports decreasing appetite due to nausea/vomiting that follows after each meal. Outpatient CT head with no acute intracranial abnormality, chronic lacunar infarction bilateral cerebral hemispheres noted. 09/18 MRI head: No acute findings, no evidence for intracranial metastasis. Few punctate old lacunar infarcts noted within the cerebral hemispheres. 09/18/2022 echo: EF 60 to 65%, grade 2 diastolic dysfunction. Moderate concentric LVH. At presentation, WBC appears minimally elevated [appears at baseline elevation], procalcitonin negative, troponin mildly elevated but flat trended/patient with no chest pain, hemoglobin around her baseline, EKG with sinus tachycardia. Orthostatic vitals positive. Upon starting midodrine and with improvement of patient's diet with Zofran, orthostatic vitals are negative today. Patient reports less nausea and vomiting, but patient has not been taking Zofran consistently. Patient advised to take Zofran half an hour prior to meal to avoid nausea/vomiting after meal. Patient advised to take small-volume yellow at the time, can take frequent meals. Patient advised to take Pedialyte solution or other electrolyte solution at least 1 L/day spread throughout the day. Patient advised to have slow transition between lying/sitting/standing position. Patient reports feeling more stronger and has been feeling better. Patient will have to follow-up with PCP as an outpatient in a week time and have the blood test CBC/CMP/magnesium/phosphorus level done. Flexeril has been discontinued and midodrine has been added. Patient to follow-up with her outpatient oncology as soon as possible. Patient made aware. PT/OT reevaluated, cleared for home per case folder, PT/OT notes pending. Other chronic medical conditions: CAD status post CABG/stent, PVD, PAF on Eliquis, CM, TIA, HTN, HLD, Williamson's esophagus, chronic anemia, prediabetes, ongoing tobacco abuse --->> continue with/resume home meds as and when able. DVT prophylaxis: On Eliquis Full code Patient being discharged home with following instruction at the point of discharge: Follow-up with your primary care physician in 5 to 7 days upon discharge, you will likely need blood test CBC/CMP/magnesium/phosphorus level upon PCP visit. For your nausea/vomiting, continue to take your Zofran as needed, maintain frequent but small volume meals to avoid nausea/vomiting. This point is very important. For your blood pressure dropping due to position change and recurrent syncope, you will need to have slow transition between lying/sitting/standing position as discussed at bedside. Continue to take Pedialyte solution or other electrolyte solution at least 1 L a day [divided throughout the day] along with other fluid intake. Increase protein intake in diet. You have been started on midodrine. You will need further evaluation upon your PCP visit. Your Flexeril has been discontinued as it is known to cause hypotension. For your recent diagnosis of esophageal carcinoma, establish and follow-up with oncology. Continue with the test/imaging prescribed by your outpatient provider. Take your medications as prescribed. Text document was generated using voice recognition software. It may contain grammatical or spelling errors. Kindly contact undersigned for clarification of any documentation item in question. Home Health Attestation I certify that this patient is under my care and that I, or a physicians operations manager assistant working with me, had a face to-face encounter that meets the home health [id number] encounter requirements with this patient. The encounter with the patient was in whole, or in part, for the following medical condition, which is the primary reason for home health care (list medical condition): I certify that, based on my findings, the following services are medically necessary home health services: My clinical findings support the need for the above services because: Further, I certify that my clinical findings support that this patient is homebound (i.e. absences from home require considerable and taxing effort and are for medical reasons or denominational services or infrequently or of short duration when for other reasons) because: Certification for Home Health Services: Based on the above findings, I certify that this patient is confined to the home and needs intermittent long term care, physical therapy and/or speech therapy or continues to need occupational therapy. The patient is under my care, and I have initiated the establishment of the plan of care. This patient will be followed by a physician who will periodically review the plan of care. Total Time Total Time Spent Total Time Spent (In Minutes): 50 Discharge Plan Discharge Items Patient Disposition: Home - Self-Care Reason For Visit: REC SYNCOPE Discharge Diagnosis: Recurrent syncope Nausea/vomiting Recent diagnosis of esophageal carcinoma Likely demand ischemia secondary to tachycardia Orthostatic hypotension Activity: As commented below Activity Comment: Slow transition between lying/sitting/standing position as discussed at bed Non-emergency contact: Primary Care Provider Call non-emergency contact if: you have any medication questions, your symptoms worsen and your temperature is above 101.5 Follow-up/Referrals: Juliane Oconnor DO [Primary Care Provider] - Diet: Regular Addtl Attending Provider Instructions: Follow-up with your primary care physician in 5 to 7 days upon discharge, you will likely need blood test CBC/CMP/magnesium/phosphorus level upon PCP visit. For your nausea/vomiting, continue to take your Zofran as needed, maintain frequent but small volume meals to avoid nausea/vomiting. This point is very important. For your blood pressure dropping due to position change and recurrent syncope, you will need to have slow transition between lying/sitting/standing position as discussed at bedside. Continue to take Pedialyte solution or other electrolyte solution at least 1 L a day [divided throughout the day] along with other fluid intake. Increase protein intake in diet. You have been started on midodrine. You will need further evaluation upon your PCP visit. Your Flexeril has been discontinued as it is known to cause hypotension. For your recent diagnosis of esophageal carcinoma, establish and follow-up with oncology. Continue with the test/imaging prescribed by your outpatient provider. Take your medications as prescribed. Pending Studies at Discharge: Yes (Admitting blood culture final results.) Stand-Alone Forms: My [facility], Smoking Cessation Medications and DC Order Prescriptions: New midodrine 2.5 mg Tablet 2.5 mg PO TID@0800,1200,1700 Qty: 90 0RF ondansetron 4 mg tablet,disintegrating 4 mg PO Q8H PRN (Reason: nausea and vomiting) Qty: 60 0RF Continued nitroglycerin 0.4 mg tablet, sublingual 0.4 mg SL UD PRN (Reason: chest pain) Qty: 1 atorvastatin 80 mg Tablet 80 mg PO HS trazodone 150 mg Tablet 150 mg PO HS metoprolol succinate 25 mg Tablet Extended Release 24 Hr 25 mg PO QAM duloxetine [Cymbalta] 30 mg Capsule,Delayed Release(Dr/Ec) 30 mg PO QAM omeprazole 40 mg capsule,delayed release(DR/EC) 40 mg PO QAM gabapentin 300 mg Capsule 300 mg PO TID metoclopramide HCl 10 mg tablet 10 mg PO BID Eliquis 5 mg tablet 5 mg PO BID Discontinued cyclobenzaprine 10 mg Tablet 10 mg PO HS PRN (Reason: Muscle Spasm) Discharge Orders: Discharge Order (Routine); Ordered 09/20/22 Ordered By: Gerard Cole Admission Data Admit Date/Time: 09/19/22 12:33 Attending Provider: Gerard Cole Admit Provider: Alexis Scanlon Primary Care Provider: Juliane Oconnor
[2022-09-20] MEDS: ONDANSETRON INJ 2 MG/ML 2 ML VIAL IV PRN (16:48)
--- NOTE | 2022-09-20 17:11 | Hospitalist Progress Note ---
Date of Service September 20, 2022 Assessment & Plan (1) Recurrent syncope: Plan 72-year-old lady with PMH of CAD status post CABG and status post stent, PAF on Eliquis, CM [EF 55 to 60% on TTE 2017], PVD, TIA, HTN, HLD, Williamson's esophagus, recent diagnosis of esophageal adenocarcinoma, prediabetes, chronic anemia [baseline hemoglobin 9-10], ongoing tobacco abuse presented to our ED 09/17 with complaint of multiple syncope, decreased appetite, nausea and vomiting. 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 Patient presented with recurrent syncope likely secondary to nausea/vomiting on the background of recent diagnosis of esophageal carcinoma. 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 Patient reports decreasing appetite due to nausea/vomiting that follows after each meal. Outpatient CT head with no acute intracranial abnormality, chronic lacunar infarction bilateral cerebral hemispheres noted. 09/18 MRI head: No acute findings, no evidence for intracranial metastasis. Few punctate old lacunar infarcts noted within the cerebral hemispheres. 09/18/2022 echo: EF 60 to 65%, grade 2 diastolic dysfunction. Moderate concentric LVH. At presentation, WBC appears minimally elevated [appears at baseline elevation], procalcitonin negative, troponin mildly elevated but flat trended/patient with no chest pain, hemoglobin around her baseline, EKG with sinus tachycardia. Orthostatic vitals positive. Upon starting midodrine and with improvement of patient's diet with Zofran, orthostatic vitals are negative today. Patient reports less nausea and vomiting, but patient has not been taking Zofran consistently. Patient advised to take Zofran half an hour prior to meal to avoid nausea/vomiting after meal. Patient advised to take small-volume yellow at the time, can take frequent meals. Patient advised to take Pedialyte solution or other electrolyte solution at least 1 L/day spread throughout the day. Patient advised to have slow transition between lying/sitting/standing position. Patient reports feeling more stronger and has been feeling better. had a vomiting episode in the afternoon. Patient will have to follow-up with PCP as an outpatient in a week time and have the blood test CBC/CMP/magnesium/phosphorus level done. Flexeril has been discontinued and midodrine has been added. Patient to follow-up with her outpatient oncology as soon as possible. Patient made aware. Pending pt/ot re-eval. Other chronic medical conditions: CAD status post CABG/stent, PVD, PAF on Eliquis, CM, TIA, HTN, HLD, Williamson's esophagus, chronic anemia, prediabetes, ongoing tobacco abuse --->> continue with/resume home meds as and when able. DVT prophylaxis: On Eliquis Full code Text document was generated using voice recognition software. It may contain grammatical or spelling errors. Kindly contact undersigned for clarification of any documentation item in question. Admission and Anticipated Discharge Date Admission Date: September 19, 2022 Subjective Patient seen and examined at bedside as a follow-up of recurrent syncope, vomiting and decreased appetite. Patient was lying in bed, on room air, NAD, patient reports feeling better, no nausea since yesterday late morning, adequate appetite without vomiting today morning, ortho vitals better today. Patient denies any fever or headache or chills or sore throat or cough or other review of symptoms. During the day, patient vomited, still feels weak, pending further Pt/ot eval. Physical Exam Physical Exam: GENERAL: Alert and oriented x3. NAD, on RA. HEENT: No pallor, no icterus. Pupils equal, round and reactive to light. Oral mucosa moist. NECK: No JVD, no neck masses. HEART: S1 and S2 heard. Tachycardia. No murmur, no gallop. RESPIRATORY SYSTEM: Normal AP diameter. No accessory muscle use. No wheezing, no crackles. ABDOMEN: Soft, bowel sounds present, nontender, no distention. CENTRAL NERVOUS SYSTEM: No facial droop. Speech is clear. Obeys simple commands. Moves extremities. EXTREMITIES: No edema, no erythema seen. Results & Data Results & Data ([facility]) Vital Signs (Past 12 Hours) Vital Signs Temp Pulse Pulse Resp BP Pulse Ox O2 Del Method 09/20/22 15:47 36.9 C 79 18 144/77 H 94 Room Air 09/20/22 11:17 37.1 C 70 18 96 Room Air 09/20/22 09:00 Room Air 09/20/22 07:45 76 09/20/22 06:40 37.1 C 78 18 118/70 92 Room Air
[2022-09-20] MEDS: ATORVASTATIN 40 MG TAB PO SCH (23:04)
[2022-09-20] MEDS: traZODone HCL 50 MG TAB PO SCH (23:04)
[2022-09-21 06:05] LABS: Hemoglobin 11.1 g/dl (12.0-16.0); Mean Corpuscular Hemoglobin 29.9 pg (25.0-34.0); Mean Corpuscular Hgb Conc 31.7 g/dL (32.0-36.0); Mean Corpuscular Volume 94.3 fL (80.0-100.0); Mean Platelet Volume 9.3 fL (9.4-12.3); Platelet Count 362 K/uL (130-400); RDW Coefficient of Variation 14.8 % (11.5-14.5); RDW Standard Deviation 51.4 fL (36.4-46.3); Red Blood Count 3.71 M/uL (3.93-5.22); White Blood Count 7.74 K/ul (4.8-10.8)
[2022-09-21] MEDS: MIDODRINE HCL 2.5 MG TAB PO SCH ×3 (06:14→17:32)
[2022-09-21 06:24] LABS: BUN Creatinine Ratio 5.7 (10-20); Calcium 8.9 mg/dl (8.5-10.1); Creatinine Clr Calc Pharmacy 73.8 ml/min; Est GFR (African American) 100.3 ml/min; Est GFR (Non-African American) 86.6 ml/min; Magnesium 1.9 mg/dl (1.7-2.4); Phosphorus 4.6 mg/dl (2.5-4.9); Potassium 4.5 mmol/L (3.5-5.1)
[2022-09-21] MEDS: GABAPENTIN 300 MG CAP PO SCH ×3 (09:24→20:13)
[2022-09-21] MEDS: DULoxetine HCL 30 MG CAP PO SCH (09:24)
[2022-09-21] MEDS: METOCLOPRAMIDE HCL 10 MG TABLET PO SCH ×2 (09:24→20:14)
[2022-09-21] MEDS: APIXABAN 5 MG TABLET PO SCH (09:24)
[2022-09-21] MEDS: PANTOprazole 40 MG TAB PO SCH (09:25)
[2022-09-21] MEDS: METOPROLOL SUCC 25MG EXT REL TAB PO SCH (09:25)
[2022-09-21] MEDS: ACETAMINOPHEN 325 MG TAB PO PRN ×2 (11:16→19:24)
[2022-09-21] MEDS: DOCUSATE SODIUM 100 MG CAP PO SCH ×2 (12:59→20:13)
[2022-09-21] MEDS: POLYETHYLENE (MIRALAX) 17 GM PACK PO SCH (12:59)
--- NOTE | 2022-09-21 16:03 | Hospitalist Progress Note ---
Date of Service September 21, 2022 Assessment & Plan (1) Recurrent syncope: Plan 72-year-old lady with PMH of CAD status post CABG and status post stent, PAF on Eliquis, CM [EF 55 to 60% on TTE 2017], PVD, TIA, HTN, HLD, Williamson's esophagus, recent diagnosis of esophageal adenocarcinoma, prediabetes, chronic anemia [baseline hemoglobin 9-10], ongoing tobacco abuse presented to our ED 09/17 with complaint of multiple syncope, decreased appetite, nausea and vomiting. 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 Patient presented with recurrent syncope likely secondary to nausea/vomiting on the background of recent diagnosis of esophageal carcinoma. 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 Patient reports decreasing appetite due to nausea/vomiting that follows after each meal. Outpatient CT head with no acute intracranial abnormality, chronic lacunar infarction bilateral cerebral hemispheres noted. 09/18 MRI head: No acute findings, no evidence for intracranial metastasis. Few punctate old lacunar infarcts noted within the cerebral hemispheres. 09/18/2022 echo: EF 60 to 65%, grade 2 diastolic dysfunction. Moderate concentric LVH. At presentation, WBC appears minimally elevated [appears at baseline elevation], procalcitonin negative, troponin mildly elevated but flat trended/patient with no chest pain, hemoglobin around her baseline, EKG with sinus tachycardia. Orthostatic vitals positive. Orthostatic vitals are negative 09/20 and on 09/21. Patient's with ongoing nausea and vomiting again, since until we correct her appetite we would not be able to correct her weakness and risk ongoing dizziness/weakness/orthostatic hyp otension I will consult GI and see if they can help with her ongoing nausea/vomiting and consider possibility of EGD scope/see any kind of intervention needed. Patient advised to take Zofran half an hour prior to meal to avoid nausea/vomiting after meal. Patient advised to take small-volume meal at the time, can take frequent meals. Patient advised to take Pedialyte solution or other electrolyte solution at least 1 L/day spread throughout the day. Patient advised to have slow transition between lying/sitting/standing position. Patient will have to follow-up with PCP as an outpatient in a week time and have the blood test CBC/CMP/magnesium/phosphorus level done. Flexeril has been discontinued and midodrine has been added. Patient to follow-up with her outpatient oncology as soon as possible. Patient made aware. PT/OT, CM to assist, pt might need placement. Other chronic medical conditions: CAD status post CABG/stent, PVD, PAF on Eliquis, CM, TIA, HTN, HLD, Williamson's esophagus, chronic anemia, prediabetes, ongoing tobacco abuse --->> continue with/resume home meds as and when able. DVT prophylaxis: On Eliquis, on hold in light of any procedures needed by GI estephania. Full code Text document was generated using voice recognition software. It may contain grammatical or spelling errors. Kindly contact undersigned for clarification of any documentation item in question. Admission and Anticipated Discharge Date Admission Date: September 19, 2022 Subjective Patient seen and examined at bedside as a follow-up of recurrent syncope, vomiting and decreased appetite. Patient was lying in bed, on room air, NAD, patient reports feeling better, again started having nausea and vomiting, has been able to eat better though, ortho vitals better . Patient denies any fever or headache or chills or sore throat or cough or other review of symptoms. Physical Exam Physical Exam: GENERAL: Alert and oriented x3. NAD, on RA. HEENT: No pallor, no icterus. Pupils equal, round and reactive to light. Oral mucosa moist. NECK: No JVD, no neck masses. HEART: S1 and S2 heard. Tachycardia. No murmur, no gallop. RESPIRATORY SYSTEM: Normal AP diameter. No accessory muscle use. No wheezing, no crackles. ABDOMEN: Soft, bowel sounds present, nontender, no distention. CENTRAL NERVOUS SYSTEM: No facial droop. Speech is clear. Obeys simple commands. Moves extremities. EXTREMITIES: No edema, no erythema seen. Results & Data Results & Data ([facility]) Vital Signs (Past 12 Hours) Vital Signs Temp Pulse Pulse Resp BP BP Pulse Ox 09/21/22 14:33 37.0 C 84 16 101/68 93 09/21/22 11:32 37.0 C 67 20 127/62 94 09/21/22 09:49 53 L 09/21/22 09:30 09/21/22 06:59 36.6 C 66 18 107/71 91 O2 Del Method 09/21/22 14:33 Room Air 09/21/22 11:32 Room Air 09/21/22 09:49 09/21/22 09:30 Room Air 09/21/22 06:59 Nasal Cannula
[2022-09-21] MEDS: ONDANSETRON INJ 2 MG/ML 2 ML VIAL IV PRN (17:39)
[2022-09-21] MEDS: ATORVASTATIN 40 MG TAB PO SCH (20:13)
[2022-09-21] MEDS: traZODone HCL 50 MG TAB PO SCH (20:14)
[2022-09-22] MEDS: ACETAMINOPHEN 325 MG TAB PO PRN ×2 (05:34→10:19)
[2022-09-22 07:11] LABS: BUN Creatinine Ratio 8.8 (10-20); Calcium 8.6 mg/dl (8.5-10.1); Creatinine Clr Calc Pharmacy 75.9 ml/min; Est GFR (African American) 101.3 ml/min; Est GFR (Non-African American) 87.4 ml/min; Potassium 4.3 mmol/L (3.5-5.1)
[2022-09-22] MEDS: MIDODRINE HCL 2.5 MG TAB PO SCH ×2 (08:05→11:29)
[2022-09-22] MEDS: DULoxetine HCL 30 MG CAP PO SCH (08:05)
[2022-09-22] MEDS: METOPROLOL SUCC 25MG EXT REL TAB PO SCH (08:06)
[2022-09-22] MEDS: PANTOprazole 40 MG TAB PO SCH (08:07)
[2022-09-22] MEDS: DOCUSATE SODIUM 100 MG CAP PO SCH (08:07)
[2022-09-22] MEDS: POLYETHYLENE (MIRALAX) 17 GM PACK PO SCH (08:08)
[2022-09-22] MEDS: METOCLOPRAMIDE HCL 10 MG TABLET PO SCH (08:08)
[2022-09-22] MEDS: GABAPENTIN 300 MG CAP PO SCH ×2 (08:08→13:44)
[2022-09-22] MEDS ORDERED: METOCLOPRAMIDE HCL 10 MG TABLET PO SCH (09:00)
--- NOTE | 2022-09-22 09:46 | Gastrointestinal Consultation ---
Date of Consultation September 22, 2022 Assessment & Plan (1) Nausea & vomitin72 year old female admitted with syncope, GI asked to evaluate for nausea/vomiting, discomfort. 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 Please call with any acute changes, questions or concerns. Please see addendum below with additional recommendation from my supervising physician. Supervising Physician Co-Signing Physician Notes I have seen and examined the patient and discussed the management with JC Story. Recent diagnosis of esophageal cancer. PE as above. Labs/imaging as above. Agree with further plan of care as above. History of Present Illness Reason for Consultation: nausea/vomiting Requesting Physician: Douglas Attending Physician: Gerard Cole MD History of Present Illness 72 year old female with history of CAD s/p CABG w/ stent, PAF on Eliquis, cardiomyopathy (EF 55 to 60%, TTE 2017), PVD, TIA, dyslipidemia, HTN, Williamson's esophagus, recent diagnosis of esophageal adenocarcinoma presenting with syncope, GI asked to evaluate for nausea/vomiting and discomfort. PT notes that she has discomfort at the location of her tumor. Explained as a pressure. She has had recent issues with nausea/vomiting post-prandially and a lot of regurgitation and acid reflux. Denies dysphagia. EGD 2021: - Likely malignant esophageal tumor was found from GE junction to the mid esophagus. Biopsied. - Normal stomach. - Normal examined duodenum. Allergies Allergy/AdvReac Type Severity Reaction Status Date / Time sumatriptan AdvReac Unknown advised to Verified 09/03/22 09:04 avoid d/t hx heart surgery varenicline AdvReac Unknown advised to Verified 09/03/22 09:04 avoid d/t hx heart surgery Home Medications Medication Instructions Recorded Confirmed Type atorvastatin 80 mg tablet 80 mg PO HS 03/22/19 09/18/22 History duloxetine 30 mg capsule,delayed 30 mg PO QAM 03/22/19 09/18/22 History release (Cymbalta) metoprolol succinate 25 mg 25 mg PO QAM 03/22/19 09/18/22 History tablet,extended release 24 hr trazodone 150 mg tablet 150 mg PO HS 03/22/19 09/18/22 History nitroglycerin 0.4 mg sublingual 0.4 mg sublingual UD PRN chest 06/24/19 09/18/22 History tablet pain #1 tab apixaban 5 mg tablet (Eliquis) 5 mg PO BID 09/18/22 09/18/22 History cyclobenzaprine 10 mg tablet 10 mg PO HS PRN Muscle Spasm 09/18/22 09/18/22 History gabapentin 300 mg capsule 300 mg PO TID 09/18/22 09/18/22 History metoclopramide HCl 10 mg tablet 10 mg PO BID 09/18/22 09/18/22 History omeprazole 40 mg capsule,delayed 40 mg PO QAM 09/18/22 09/18/22 History release midodrine 2.5 mg tablet 2.5 mg PO TID@0800,1200,1700 #90 09/20/22 Rx tabs ondansetron 4 mg disintegrating 4 mg PO Q8H PRN nausea and 09/20/22 Rx tablet vomiting #60 tabs Patient History Medical History Anxiety Barretts esophagus Carotid artery disease Chronic obstructive pulmonary disease inh prn CKD (chronic kidney disease), stage III Coronary artery disease CABG x 2 (2009) cardiac stent x 1 (2014 - LCx) Degenerative disc disease Depression GERD (gastroesophageal reflux disease) controlled Hyperlipidemia Hypertension Learning disability cannot spell/limited reading skills Migraine "haven't had one in awhile" Myocardial Infarction "silent" SD- remote/several years ago Osteoarthritis PAD (peripheral artery disease) <50% aorta-iliac system stenosis per 09/26/19 duplex Paroxysmal atrial fibrillation Peripheral neuropathy LLE PVD (peripheral vascular disease) Stroke "silent" stroke noted incidentally on imaging several years ago= no residual issues Surgical History Fusion of spine LUMBAR ACDF C5-C7: 10/30/17: Grade view 1, MAC#3, ETT [address] [facility] History of bilateral tubal ligation History of cardiac cath CABG x 2 (2009); Donna; f/u dr kemp, ut cardiac stent x 1 (2015 - LCx); [facility] History of cholecystectomy History of colonoscopy History of esophagogastroduodenoscopy (EGD) History of Lauren fundoplication History of tonsillectomy History of tooth extraction History of total abdominal hysterectomy and bilateral salpingo-oophorectomy History of total hip arthroplasty LEFT History of total knee replacement RT/LEFT Family History Father Family history of diabetes mellitus Social History Smoking Status: Current every day smoker Cigarettes Per Day: 20; Second Hand Exposure: No; Tobacco Cessation Education Requested by Patient: No Hx Alcohol Use: No Hx Substance Use: No Preferred Language: Faroese Communication Ability: Effective 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 Beliefs That Will Affect Care: None marital status: Current Living Situation: Spouse Other Information That Helps Us Care for You: No Feels Safe at Home: Yes Safety Concerns: Feels Safe At This Time Assistive Devices: None Review of Systems Review of Systems: All systems reviewed & are unremarkable except as noted in HPI & below Physical Exam Respiratory: normal respiratory effort; no respiratory distress and no labored breathing Cardiovascular: Rate/Rhythm: regular rate and regular rhythm Gastrointestinal (Abdomen): Inspection/Auscultation: abdomen normal to inspection; abdomen not distended and + abnormal bowel sounds Percussion/Palpation: abdomen soft; abdomen nontender, no guarding and abdomen not rigid Skin: no rashes, warm and dry Results & Data ([facility]) Vital Signs (Past 12 Hours) Vital Signs Temp Pulse Pulse Resp BP Pulse Ox Pulse Ox 09/22/22 08:15 09/22/22 06:36 37.0 C 61 18 113/54 L 96 09/22/22 04:33 37.2 C 93 H 20 107/67 91 09/21/22 22:11 57 L 09/22/22 00:00 96 O2 Del Method O2 Del Method 09/22/22 08:15 Room Air 09/22/22 06:36 Room Air 09/22/22 04:33 Room Air 09/21/22 22:11 09/22/22 00:00 Room Air Laboratory Results 09/22/22 Range/Units 05:29 Sodium 139 (136-145) mmol/L Potassium 4.3 (3.5-5.1) mmol/L Chloride 102 (98-107) mmol/L Carbon Dioxide 33 H (21-32) mmol/L Anion Gap 4 (3-11) BUN 6 (6-23) mg/dl Creatinine 0.68 (0.6-1.2) mg/dl Est Cr Clr Drug Dosing 75.9 ml/min Est GFR ( Amer) 101.3 ml/min Est GFR (Non-Af Amer) 87.4 ml/min BUN/Creatinine Ratio 8.8 L (10-20) Glucose 102 H (70-99(Fasting)) mg/dl Calcium 8.6 (8.5-10.1) mg/dl
--- NOTE | 2022-09-22 14:20 | Discharge Summary ---
Date of Service September 22, 2022 Admission HPI Per Admitting Provider History obtained from patient and records. Medical history significant for CAD status post CABG status post stent, PAF on Eliquis, history of cardiomyopathy (EF 55 to 60%, TTE 2017), PVD, history TIA, hypertension, hyperlipidemia, Williamson's esophagus, recent diagnosis of esophageal adenocarcinoma, prediabetes, chronic anemia (baseline hemoglobin 9- 10), ongoing tobacco abuse. Last confinement 2019 under Orthopedics spine service for lumbar spine stenosis status post decompression surgery. Patient recently found to have esophageal adenocarcinoma following outpatient EGD 2 weeks ago. Outpatient Oncology consultation contemplated. Patient appetite worse than usual the last few weeks. Patient drinking green tea for fluids. Patient denies depression. Three recurrent syncopal events at home since last night preceded by lightheadedness. All episodes noted in the upright position. No chest pain, no SOB, no belly pain. No tongue biting, no incontinence, no witnessed seizures. One syncopal event leading to fall causing some bruising on the right shoulder. Tolerable right shoulder discomfort. Patient brought to [facility] ER for evaluation. SBP noted to be 100. Patient tachycardic at 115. Other pertinent labs include WBC 15, high-sensitivity troponin of 94; UA showed ketones. Patient noted achy frontal headache symptoms during ER stay. Transfer recommended by hospitalist on-call because [facility] unable to do Brain MRI as per ER provider. Patient requested to be transferred to [facility]. 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 Admission Exam Per Admitting Provider GENERAL: Comfortable, pleasant, no respiratory distress SKIN: Pallor, warm HEENT: Pale palpebral conjunctivae, no ptosis, dry buccal mucosa NECK : Supple, no tenderness CHEST : Decreased breath sounds, occasional expiratory wheezes, no tenderness HEART : RRR, no obvious murmurs ABDOMEN: Some distention, nontender EXTREMITIES : No LE swelling/tenderness, no other conspicuous deformities noted NEUROLOGIC : Coherent, no facial asymmetry, no other gross focality Principal Diagnosis Recurrent syncope Nausea/vomiting Recent diagnosis of esophageal carcinoma Likely demand ischemia secondary to tachycardia Orthostatic hypotension Discharge Exam GENERAL: Alert and oriented x3. NAD, on RA. HEENT: No pallor, no icterus. Pupils equal, round and reactive to light. Oral mucosa moist. NECK: No JVD, no neck masses. HEART: S1 and S2 heard. Tachycardia. No murmur, no gallop. RESPIRATORY SYSTEM: Normal AP diameter. No accessory muscle use. No wheezing, no crackles. ABDOMEN: Soft, bowel sounds present, nontender, no distention. CENTRAL NERVOUS SYSTEM: No facial droop. Speech is clear. Obeys simple commands. Moves extremities. EXTREMITIES: No edema, no erythema seen. Discharge Data Allergies Allergy/AdvReac Type Severity Reaction Status Date / Time sumatriptan AdvReac Unknown advised to Verified 09/03/22 09:04 avoid d/t hx heart surgery varenicline AdvReac Unknown advised to Verified 09/03/22 09:04 avoid d/t hx heart surgery Consultations 09/21/22 13:58 Consult Gastroenterology Routine Ordered Studies 09/18/22 01:28 MRI Brain [MR brain wo/w con] Urgent Hospital Course (1) Recurrent syncope: Plan 72-year-old lady with PMH of CAD status post CABG and status post stent, PAF on Eliquis, CM [EF 55 to 60% on TTE 2017], PVD, TIA, HTN, HLD, Williamson's esophagus, recent diagnosis of esophageal adenocarcinoma, prediabetes, chronic anemia [baseline hemoglobin 9-10], ongoing tobacco abuse presented to our ED 09/17 with complaint of multiple syncope, decreased appetite, nausea and vomiting. 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 Patient presented with recurrent syncope likely secondary to nausea/vomiting on the background of recent diagnosis of esophageal carcinoma. 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 Patient reports decreasing appetite due to nausea/vomiting that follows after each meal. Outpatient CT head with no acute intracranial abnormality, chronic lacunar infarction bilateral cerebral hemispheres noted. 09/18 MRI head: No acute findings, no evidence for intracranial metastasis. Few punctate old lacunar infarcts noted within the cerebral hemispheres. 09/18/2022 echo: EF 60 to 65%, grade 2 diastolic dysfunction. Moderate concentric LVH. At presentation, WBC appears minimally elevated [appears at baseline elevation], procalcitonin negative, troponin mildly elevated but flat trended/patient with no chest pain, hemoglobin around her baseline, EKG with sinus tachycardia. Orthostatic vitals positive. Orthostatic vitals are negative 09/20 and on 09/21. Pt seen and evaluated by GI, recs are slippery small freq meals. Increased PPI to BID. No plan of EGD. Patient advised to take Zofran half an hour prior to meal to avoid nausea/vomiting after meal. Patient advised to take small-volume meal at the time, can take frequent meals. Patient advised to take Pedialyte solution or other electrolyte solution at least 1 L/day spread throughout the day. Patient advised to have slow transition between lying/sitting/standing position. Pt will be provided wheeled walker. Patient will have to follow-up with PCP as an outpatient in a week time and have the blood test CBC/CMP/magnesium/phosphorus level done. Flexeril has been discontinued and midodrine has been added. Patient to follow-up with her outpatient oncology as soon as possible. Patient made aware. PT/OT, CM to assist, pt might need placement. Other chronic medical conditions: CAD status post CABG/stent, PVD, PAF on Eliquis, CM, TIA, HTN, HLD, Williamson's esophagus, chronic anemia, prediabetes, ongoing tobacco abuse --->> continue with/resume home meds as and when able. DVT prophylaxis: On Eliquis Full code Patient declined SNF. Patient is being discharged home with family support with following instruction at the point of discharge: Follow-up with your primary care physician in 5 to 7 days upon discharge, you will likely need blood test CBC/CMP/magnesium/phosphorus level upon PCP visit. For your nausea/vomiting, continue to take your Zofran as needed, maintain frequent but small volume meals to avoid nausea/vomiting. Maintain soft slippery diet. This point is very important. For your blood pressure dropping due to position change and recurrent syncope, you will need to have slow transition between lying/sitting/standing position as discussed at bedside. Continue to take Pedialyte solution or other electrolyte solution at least 1 L a day [divided throughout the day] along with other fluid intake. Increase protein intake in diet. You have been started on midodrine. You will need further evaluation upon your PCP visit. Your Flexeril has been discontinued as it is known to cause hypotension. For your recent diagnosis of esophageal carcinoma, establish and follow-up with oncology. Continue with the test/imaging prescribed by your outpatient provider. Take your medications as prescribed. Text document was generated using voice recognition software. It may contain grammatical or spelling errors. Kindly contact undersigned for clarification of any documentation item in question. Home Health Attestation I certify that this patient is under my care and that I, or a physicians resident programs assistant working with me, had a face to-face encounter that meets the home health [id number] encounter requirements with this patient. The encounter with the patient was in whole, or in part, for the following medical condition, which is the primary reason for home health care (list medical condition): I certify that, based on my findings, the following services are medically nec essary home health services: My clinical findings support the need for the above services because: Further, I certify that my clinical findings support that this patient is homebound (i.e. absences from home require considerable and taxing effort and are for medical reasons or restorationism services or infrequently or of short duration when for other reasons) because: Certification for Home Health Services: Based on the above findings, I certify that this patient is confined to the home and needs intermittent jail care, physical therapy and/or speech therapy or continues to need occupational therapy. The patient is under my care, and I have initiated the establishment of the plan of care. This patient will be followed by a physician who will periodically review the plan of care. Total Time Total Time Spent Total Time Spent (In Minutes): 40 Discharge Plan Discharge Items Patient Disposition: Home - Self-Care Reason For Visit: REC SYNCOPE Discharge Diagnosis: Recurrent syncope Nausea/vomiting Recent diagnosis of esophageal carcinoma Likely demand ischemia secondary to tachycardia Orthostatic hypotension Activity: As commented below Activity Comment: Slow transition between lying/sitting/standing position as discussed at bed Non-emergency contact: Primary Care Provider Call non-emergency contact if: you have any medication questions, your symptoms worsen and your temperature is above 101.5 Follow-up/Referrals: Newhouser,Juliane M., DO [Primary Care Provider] - Diet: Regular Diet Comment: soft slippery diet Addtl Attending Provider Instructions: Follow-up with your primary care physician in 5 to 7 days upon discharge, you will likely need blood test CBC/CMP/magnesium/phosphorus level upon PCP visit. For your nausea/vomiting, continue to take your Zofran as needed, maintain frequent but small volume meals to avoid nausea/vomiting. Maintain soft slippery diet. This point is very important. For your blood pressure dropping due to position change and recurrent syncope, you will need to have slow transition between lying/sitting/standing position as discussed at bedside. Continue to take Pedialyte solution or other electrolyte solution at least 1 L a day [divided throughout the day] along with other fluid intake. Increase protein intake in diet. You have been started on midodrine. You will need further evaluation upon your PCP visit. Your Flexeril has been discontinued as it is known to cause hypotension. For your recent diagnosis of esophageal carcinoma, establish and follow-up with oncology. Continue with the test/imaging prescribed by your outpatient provider. Take your medications as prescribed. Pending Studies at Discharge: Yes (Admitting blood culture final results.) Stand-Alone Forms: My [facility] [employer], Smoking Cessation Medications and DC Order Prescriptions: New midodrine 2.5 mg Tablet 2.5 mg PO TID@0800,1200,1700 Qty: 90 0RF ondansetron 4 mg tablet,disintegrating 4 mg PO Q8H PRN (Reason: nausea and vomiting) Qty: 60 0RF Continued nitroglycerin 0.4 mg tablet, sublingual 0.4 mg SL UD PRN (Reason: chest pain) Qty: 1 atorvastatin 80 mg Tablet 80 mg PO HS trazodone 150 mg Tablet 150 mg PO HS metoprolol succinate 25 mg Tablet Extended Release 24 Hr 25 mg PO QAM duloxetine [Cymbalta] 30 mg Capsule,Delayed Release(Dr/Ec) 30 mg PO QAM gabapentin 300 mg Capsule 300 mg PO TID metoclopramide HCl 10 mg tablet 10 mg PO BID Eliquis 5 mg tablet 5 mg PO BID Changed omeprazole 40 mg capsule,delayed release(DR/EC) 40 mg PO BID Qty: 60 0RF Discontinued cyclobenzaprine 10 mg Tablet 10 mg PO HS PRN (Reason: Muscle Spasm) Discharge Orders: Discharge Order (Routine); Ordered 09/22/22 Ordered By: Gerard Cole Admission Data Admit Date/Time: 09/19/22 12:33 Attending Provider: Gerard Cole Admit Provider: Alexis Scanlon Primary Care Provider: Juliane Oconnor Other Providers: Evert Gaytan
== END 2022-09-22 16:09 | disposition home or self-care (01) | DRG 312 ==
LOC: INTOOBSV 23:33 → 2W 23:33

== ENCOUNTER 2022-10-31 13:58 | Inpatient (IN) ==
[2022-10-31] MEDS ORDERED: ADENOSINE IV SOLN 3 MG/ML 2 ML VIAL IV STA (14:19)
[2022-10-31] MEDS ORDERED: SODIUM CHLORIDE 0.9% 1000ML 1,000 ML IV STA (14:19)
[2022-10-31] MEDS ORDERED: dilTIAZem HCl 5 MG/ML 5 ML VIAL IV STA (14:26)
--- NOTE | 2022-10-31 14:28 | Emergency Department Note ---
Impression & Plan Atrial fibrillation with RVR ADMIT ED Provider Note HPI: The patient is a 72-year-old female with history of atrial fibrillation, on Eliquis, with history of adenocarcinoma of the lower esophagus, presents emergency department with chief complaint of tachyarrhythmia. Patient states that earlier today, she was going to her appointment with oncology to be evaluated for chemo/radiation therapy for her recently diagnosed adenocarcinoma of the esophagus, she was not feeling well and had an episode of vomiting while on the way to her appointment. She denies any abdominal pain. When she arrived, she was noted to have a heart rate in the 170s, she was therefore refe rred to the ED for further management. Patient denies any chest pain or shortness of breath, on arrival she is noted to have what appears to be SVT on EKG with heart rate in the 180s. She denies any chest pain, denies any shortness of breath, she is in no acute distress on my initial assessment. ROS: -Cardio: Tachyarrhythmia/SVT -GI: Nausea and vomiting *10 point review systems was conducted and is otherwise negative unless stated above *Outpatient medications and allergy history reviewed PE: General: Alert, frail-appearing, no acute distress HEENT: Normocephalic, trachea midline Eyes: Extraocular eye movement is intact, no scleral erythema Pulmonary: Clear to auscultation bilaterally, no wheezing Cardio: Tachycardic rate with regular rhythm GI: Abdomen is soft, nontender : No suprapubic tenderness MSK: No evidence of trauma or malformation of the extremities, no edema Skin: No evidence of rash Neuro: Alert, no focal deficits Psychiatric: Cooperative equipment monitor phototypesetting: - An order was placed for continuous cardiac monitoring - Patient was noted to be in narrow complex tachycardia with rate of 181 EKG: Rate: 191 Rhythm: Supraventricular tachycardia Intervals: QRS 86 ms, QTC 435 ms, MO indeterminate ST changes, no ST elevation Time: 1405 Interventions provided in ED: -IV fluid, IV adenosine, IV diltiazem bolus and drip, IV cefepime, IV vancomycin Medical Decision Making: Patient presented to the emergency department with a tachyarrhythmia, this is in the setting of her not feeling well over about the past 8 hours, she has had nausea, had an episode of vomiting on her way to see oncology today. On arrival here to the ED she is noted to be in supraventricular tachycardia, she is otherwise in no acute distress. Patient was placed on conveyor monitor, blood pressure is noted to be stable, I discussed adenosine therapy with the patient as she does show an obvious narrow complex tachycardia on her EKG consistent with SVT, she was in agreement and therefore adenosine was administered. This did successfully convert the patient to sinus tachycardia with rates in the 130s, there was no evidence of any flutter waves with administration of adenosine. Patient was being IV fluid resuscitated, lab work was pending, she then lost her P waves and went into atrial fibrillation with RVR in the 140s. Blood pressure remained stable therefore patient was given a diltiazem bolus and initiated on diltiazem drip, heart rate did eventually downtrend in the low 100s, blood pressure remained stable on my reassessment at 125/75. Patient's lab work shows evidence of a leukocytosis greater than 15,000, she is not noted to be on any steroids, potassium is within normal limits, troponin is mildly elevated at 24.0, patient denies any active chest pain. Given the patient's leukocytosis, medical history, and earlier symptoms, CT angiography of the chest as well as CT imaging of the abdomen pelvis with IV contrast were obtained. There is evidence of wall thickening lower esophagus and possible mass lesion which is likely consistent with the patient's history of adenocarcinoma, no evidence of any small bowel obstruction, no evidence of any pneumonia, no obvious infectious pathology noted on CT imaging. Patient was treated with broad-spectrum antibiotics, cefepime and vancomycin, heart rate is well controlled on my reassessment at 101 and she remains in atrial fibrillation, she is anticoagulated. She was given greater than 30 cc/kg of IV fluid, lactic acid is pending, urinalysis is also pending at the time of admission. I discussed all of the above with the on-call hospitalist for [facility], Dr. Mercado, and the patient was in agreement for admission. Patient was admitted in stable condition for further care. Critical care time: 65-minutes -Management of tachyarrhythmia including SVT and atrial fibrillation with RVR requiring IV rate control medications including adenosine and diltiazem to be administered, time spent at the bedside, management of complex medical issues and arrangement of admission, discussion with other physicians Diagnosis: 1. Supraventricular tachycardia 2. Atrial fibrillation with RVR 3. Leukocytosis 4. History of esophageal adenocarcinoma 5. Elevated high-sensitivity troponin level Disposition: Admission Janak Nogueira DO Emergency Medicine Past Med/Surg History Medical History (Updated 10/31/22 @ 18:19 by Janak Nogueira DO) Anxiety Barretts esophagus Chronic obstructive pulmonary disease CKD (chronic kidney disease), stage III Coronary artery disease CABG x 2 (2009) cardiac stent x 1 (2014 - LCx) Degenerative disc disease Depression Esophageal cancer Ganglion cyst Surgery on both wrists for this GERD (gastroesophageal reflux disease) controlled Hyperlipidemia Hypertension Learning disability cannot spell/limited reading skills Migraine "haven't had one in awhile" Myocardial Infarction "silent" HI- remote/several years ago Osteoarthritis PAD (peripheral artery disease) <50% aorta-iliac system stenosis per 09/26/19 duplex Paroxysmal atrial fibrillation Peripheral neuropathy LLE Port-A-Cath in place PVD (peripheral vascular disease) Stroke "silent" stroke noted incidentally on imaging several years ago, no residual issues Surgical History (Updated 10/29/22 @ 10:21 by Alivia Brar, MADELYN) Fusion of spine LUMBAR ACDF C5-C7: 10/30/17: Grade view 1, MAC#3, ETT 7.0 at [facility] H/O esophagogastroduodenoscopy H/O shoulder surgery Left H/O sinus surgery History of bilateral tubal ligation History of cardiac cath CABG x 2 (2009); Donna; f/u dr kemp, co cardiac stent x 1 (2014 - LCx); [facility] History of carpal tunnel surgery History of cholecystectomy History of colonoscopy History of esophagogastroduodenoscopy (EGD) History of Lauren fundoplication History of surgery Reconstruction of pyloris History of surgery Paraesophageal hernia repair with mesh in 2017 History of tonsillectomy History of tooth extraction History of total abdominal hysterectomy and bilateral salpingo-oophorectomy History of total hip arthroplasty LEFT History of total knee replacement RT/LEFT Removal of knee prosthesis Family History (Updated 10/29/22 @ 10:25 by Alivia Brar, MADELYN) Father , 73yo Myocardial infarction Mother , in her 80s Breast cancer Myocardial infarction Brother Natural with unknown cause Brother Natural with unknown cause Brother No problems noted. Brother No problems noted. Sister Breast cancer Sister No problems noted. Sister No problems noted. Sister No problems noted. Son No problems noted. Daughter No problems noted. Daughter No problems noted. Daughter No problems noted. 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 Feels Safe at Home: Yes caffeine: No during the past year weight has: remained stable Allergies Allergies Allergy/AdvReac Type Severity Reaction Status Date / Time sumatriptan AdvReac Unknown advised to Verified 10/29/22 10:13 avoid d/t hx heart surgery varenicline AdvReac Unknown advised to Verified 10/29/22 10:13 avoid d/t hx heart surgery Home Meds Home Medications Medication Instructions Recorded Confirmed atorvastatin 80 mg tablet 80 mg PO HS 03/22/19 10/31/22 duloxetine 30 mg capsule,delayed 30 mg PO QAM 03/22/19 10/31/22 release (Cymbalta) trazodone 150 mg tablet 150 mg PO HS 03/22/19 10/31/22 nitroglycerin 0.4 mg sublingual 0.4 mg sublingual UD PRN chest 06/24/19 10/31/22 tablet pain #1 tab apixaban 5 mg tablet (Eliquis) 5 mg PO AMHS 09/18/22 10/31/22 acetaminophen 500 mg tablet 500 mg PO Q4 PRN Pain 10/29/22 10/31/22 (Tylenol Extra Strength) albuterol sulfate 2.5 mg/3 mL 2.5 mg inhalation Q4H PRN 10/29/22 10/31/22 (0.083 %) solution for nebulization Abdominal Discomfort ferrous sulfate 325 mg (65 mg 325 mg PO DAILY 10/29/22 10/31/22 iron) tablet (FeroSul) fluticasone propionate 220 2 puff inhalation BID PRN as 10/29/22 10/31/22 mcg/actuation HFA aerosol inhaler directed (Flovent HFA) mecobalamin (vitamin B12) 1,000 1,000 mcg PO DAILY 10/29/22 10/31/22 mcg lozenges ropinirole 0.25 mg tablet 0.5 mg PO HS 10/29/22 10/31/22 tiotropium bromide 18 mcg capsule 1 cap inhalation DAILY PRN as 10/29/22 10/31/22 with inhalation device (Spiriva directed with HandiHaler) aspirin 81 mg chewable tablet 81 mg PO DAILY 10/30/22 10/31/22 cholecalciferol (vitamin D3) 25 25 mcg PO DAILY 10/30/22 10/31/22 mcg (1,000 unit) capsule albuterol sulfate 90 mcg/actuation 2 puff inhalation Q4 PRN Wheezing 10/31/22 10/31/22 aerosol inhaler magnesium oxide 400 mg PO DAILY 10/31/22 10/31/22 metoprolol succinate 25 mg 25 mg PO QAM 10/31/22 10/31/22 tablet,extended release 24 hr mirtazapine 15 mg tablet 15 mg PO HS 10/31/22 10/31/22 omeprazole 40 mg capsule,delayed 40 mg PO DAILYBB 10/31/22 10/31/22 release Previous Rx's Medication Instructions Recorded ondansetron 4 mg disintegrating 4 mg PO Q8H PRN nausea and 09/20/22 tablet vomiting #60 tabs prochlorperazine maleate 5 mg 5 mg PO TID PRN nausea and 10/30/22 tablet (Compazine) vomiting #30 tabs Results & Data (ED) Vital Signs Vital Signs - 24 hr 10/31/22 13:43 10/31/22 14:19 10/31/22 14:23 Pulse Rate 152 H Pulse Rate [Apical] Respiratory Rate 16 Blood Pressure [Left Arm] Blood Pressure Mean [Left Arm] Pulse Oximetry 95 Oxygen Delivery Method Room Air Room Air Sepsis Recent Fever Within 48 Hours No Sepsis New/Unexplained Change in Mental Status N/A Sepsis Action Taken by Nursing No Action Required 10/31/22 14:23 10/31/22 17:00 Pulse Rate Pulse Rate [Apical] 121 H 96 H Respiratory Rate 16 16 Blood Pressure [Left Arm] 110/75 125/75 Blood Pressure Mean [Left Arm] 86 91 Pulse Oximetry 98 95 Oxygen Delivery Method Room Air Sepsis Recent Fever Within 48 Hours Sepsis New/Unexplained Change in Mental Status Sepsis Action Taken by Nursing Laboratory Data Result diagrams: 10/31/22 14:20 10/31/22 14:20 Lab Results 10/31/22 10/31/22 10/31/22 Range/Units 14:20 14:20 14:20 WBC 15.74 H (4.8-10.8) K/ul RBC 4.38 (3.93-5.22) M/uL Hgb 13.0 (12.0-16.0) g/dl Hct 40.7 (34.1-44.9) % MCV 92.9 (80.0-100.0) fL MCH 29.7 (25.0-34.0) pg MCHC 31.9 L (32.0-36.0) g/dL RDW Std Deviation 50.9 H (36.4-46.3) fL RDW Coeff of Cassi 14.9 H (11.5-14.5) % Plt Count 657 H (130-400) K/uL MPV 9.4 (9.4-12.3) fL Immature Gran % (Auto) 1.7 % Neut % (Auto) 69.0 % Lymph % (Auto) 20.8 % Dewitt % (Auto) 8.1 % Eos % (Auto) 0.1 % Baso % (Auto) 0.3 % Neut # (Auto) 10.85 H (1.4-6.5) K/uL Lymph # (Auto) 3.28 (1.2-3.4) K/uL Dewitt # (Auto) 1.28 H (0.24-0.82) K/uL Eos # (Auto) 0.02 (0-0.50) K/uL Baso # (Auto) 0.05 (0-0.2) K/uL Immature Gran # (Auto) 0.26 H (0.00-0.02) K/uL PT 12.6 H (9.0-12.0) Seconds INR 1.2 H (0.9-1.1) APTT 34.2 H (21.0-31.0) Seconds PTT Ratio 1.2 Sodium 136 (136-145) mmol/L Potassium 3.6 (3.5-5.1) mmol/L Chloride 97 L (98-107) mmol/L Carbon Dioxide 23 (21-32) mmol/L Anion Gap 16 H (3-11) BUN 11 (6-23) mg/dl Creatinine 0.95 (0.6-1.2) mg/dl Est Cr Clr Drug Dosing 48.2 ml/min Est GFR ( Amer) 69.4 ml/min Est GFR (Non-Af Amer) 59.8 ml/min BUN/Creatinine Ratio 11.6 (10-20) Glucose 203 H (70-99(Fasting)) mg/dl Calcium 8.9 (8.5-10.1) mg/dl Total Bilirubin 0.5 (0.2-1.0) mg/dl AST 15 (13-39) U/L ALT 9 (7-52) U/L Alkaline Phosphatase 121 H (34-104) U/L Troponin I High Sens 24.0 H D (0-14) pg/ml Total Protein 6.2 (6.0-8.3) gm/dl Albumin 3.0 L (3.4-5.0) gm/dl Globulin 3.2 (2.5-4.0) gm/dl Albumin/Globulin Ratio 0.9 (0.9-2) Lipase 20 (11-82) U/L SARS-CoV-2 (PCR) (Negative) Influenza Type A (PCR) (Neg) Influenza Type B (PCR) (Neg) RSV (RT-PCR) (Neg) 10/31/22 Range/Units 14:52 WBC (4.8-10.8) K/ul RBC (3.93-5.22) M/uL Hgb (12.0-16.0) g/dl Hct (34.1-44.9) % MCV (80.0-100.0) fL MCH (25.0-34.0) pg MCHC (32.0-36.0) g/dL RDW Std Deviation (36.4-46.3) fL RDW Coeff of Cassi (11.5-14.5) % Plt Count (130-400) K/uL MPV (9.4-12.3) fL Immature Gran % (Auto) % Neut % (Auto) % Lymph % (Auto) % Dewitt % (Auto) % Eos % (Auto) % Baso % (Auto) % Neut # (Auto) (1.4-6.5) K/uL Lymph # (Auto) (1.2-3.4) K/uL Dewitt # (Auto) (0.24-0.82) K/uL Eos # (Auto) (0-0.50) K/uL Baso # (Auto) (0-0.2) K/uL Immature Gran # (Auto) (0.00-0.02) K/uL PT (9.0-12.0) Seconds INR (0.9-1.1) APTT (21.0-31.0) Seconds PTT Ratio Sodium (136-145) mmol/L Potassium (3.5-5.1) mmol/L Chloride (98-107) mmol/L Carbon Dioxide (21-32) mmol/L Anion Gap (3-11) BUN (6-23) mg/dl Creatinine (0.6-1.2) mg/dl Est Cr Clr Drug Dosing ml/min Est GFR ( Amer) ml/min Est GFR (Non-Af Amer) ml/min BUN/Creatinine Ratio (10-20) Glucose (70-99(Fasting)) mg/dl Calcium (8.5-10.1) mg/dl Total Bilirubin (0.2-1.0) mg/dl AST (13-39) U/L ALT (7-52) U/L Alkaline Phosphatase (34-104) U/L Troponin I High Sens (0-14) pg/ml Total Protein (6.0-8.3) gm/dl Albumin (3.4-5.0) gm/dl Globulin (2.5-4.0) gm/dl Albumin/Globulin Ratio (0.9-2) Lipase (11-82) U/L SARS-CoV-2 (PCR) NEGATIVE (Negative) Influenza Type A (PCR) Negative (Neg) Influenza Type B (PCR) Negative (Neg) RSV (RT-PCR) Negative (Neg) Administered Medications Diltiazem HCl 125 mg/ Dextrose 125 mls @ 10 mls/hr IV .[id number] [facility]; Protocol Stop: 11/30/22 14:59 Last Titration: 10/31/22 15:48 Dose: 10 mg/hr, 10 mls/hr Documented By: VANE Co-signed By: AL Admin: 10/31/22 15:06 Dose: 5 mg/hr, 5 mls/hr Documented By: VANE Co-signed By: CONRAD Vancomycin HCl 1,250 mg/ (Sodium Chloride) 525 mls @ 200 mls/hr IV NOW ONE Stop: 10/31/22 19:43 Last Admin: 10/31/22 17:41 Dose: 200 mls/hr Documented By: VANE Discontinued Medications Adenosine (Adenosine Iv Soln 3 Mg/Ml 2 Ml Vial) 6 mg IV NOW STA Stop: 10/31/22 14:20 Last Admin: 10/31/22 14:40 Dose: 6 mg Documented By: VANE Diltiazem HCl (Diltiazem Hcl 5 Mg/Ml 5 Ml Vial) 10 mg IV NOW STA Stop: 10/31/22 14:27 Last Admin: 10/31/22 14:32 Dose: 10 mg Documented By: VANE Co-signed By: MICHAEL Sodium Chloride (Nss 1000ml) 1,000 mls @ 999 mls/hr IV .Q1H1M STA Stop: 10/31/22 15:19 Last Infusion: 10/31/22 14:41 Dose: 0 mls/hr Documented By: Admin: 10/31/22 14:41 Dose: 999 mls/hr Documented By: VANE Cefepime HCl (Maxipime) 2,000 mg in 20 mls @ 5 mls/min IV NOW STA; Protocol Stop: 10/31/22 17:09 Last Admin: 10/31/22 17:41 Dose: 5 mls/min Documented By: VANE Sodium Chloride (Nss 1000ml) 1,000 mls @ 999 mls/hr IV .Q1H1M ONE Stop: 10/31/22 18:07 Last Admin: 10/31/22 17:42 Dose: 999 mls/hr Documented By: VANE Miscellaneous (Stat Iv Infusion Titration Per Protocol) 1 each N/A NOW STA Stop: 10/31/22 14:49 Last Admin: 10/31/22 15:08 Dose: 1 each Documented By: VANE Imaging Data Radiologist's Impression: Chest X-Ray 10/31/22 14:19 SINGLE VIEW CHEST CLINICAL HISTORY: Atypical chest pain. FINDINGS: An AP, portable, upright chest radiograph is compared to study dated 09/20/2022 and correlated with chest CT dated 09/17/2022. A right internal jugular central venous catheter is new from previous. The patient is status post midline sternotomy. The cardiomediastinal silhouette is unremarkable noting atherosclerotic calcification of the thoracic aorta. Emphysema and chronic interstitial thickening is similar to previous. There are small pleural effusions, right larger than left with foci of parenchymal scarring in the lower lungs. Fibrotic change and fluid is incidental right apex. No pneumothorax is seen. The skeletal structures are osteopenic. The bony thorax is grossly intact. Fusion hardware is noted in the lower cervical spine. IMPRESSION: 1. Small pleural effusions, right larger than left with bibasilar scarring/atelectasis. 2. Emphysema. ACT 112: Negative or not required by law. Electronically signed by: Doug Figueredo M.D. 10/31/2022 3:11 PM Abdomen/Pelvis CT 10/31/22 14:38 CT SCAN OF THE ABDOMEN AND PELVIS WITH IV CONTRAST CLINICAL HISTORY: Vomiting. COMPARISON STUDY: Abdominal CT dated scans dated 09/17/2022 and 12/23/2015. TECHNIQUE: Following the IV administration of 118 cc of Optiray 320, CT scan of the abdomen and pelvis is performed from the lung bases to the proximal femora. Images are reviewed in the axial, sagittal, and coronal planes. IV contrast was administered without complication. A dose lowering technique was utilized adhering to the principles of ALARA. CT DOSE: 629.99 mGy.cm FINDINGS: Lung bases: The patient is status post midline sternotomy. The heart is normal in size and without pericardial effusion. There is trace right pleural effusion with bibasilar scarring/atelectasis. Pleural thickening is seen at the right lung base. Postsurgical change is noted at the gastroesophageal junction with evidence of at least partial gastric pull-through. The distal esophagus/gastric pull-through is markedly thick walled and edematous. There is a 1.8 cm outpouching from the distal aspect of the distal esophagus/stomach at this level versus a necrotic paraesophageal lymph node seen on image #12. Liver: The contrast-enhanced liver is normal in size, contour, and attenuation. There is no intrahepatic biliary ductal dilatation. The hepatic veins and portal veins are patent. Gallbladder: Surgically absent and clips in the gallbladder fossa. Spleen: Normal in size and attenuation. Pancreas: Moderately atrophic and grossly unremarkable. Adrenal glands: Unremarkable. Kidneys: The contrast enhanced kidneys demonstrate mild cortical atrophy and are without hydronephrosis. There are bilateral renovascular calcifications. The kidneys enhance symmetrically. Abdominal vasculature: The abdominal aorta is normal in course and caliber noting moderate to advanced atherosclerotic calcification. Bowel: There is no bowel obstruction. Residual enteric contrast is seen throu ghout the colon. There is mild colonic diverticulosis without CT evidence of acute diverticulitis. The appendix is well-visualized and normal. Peritoneum: There is no intraperitoneal free air or abdominal ascites. Lymphadenopathy: None. Pelvic viscera: Evaluation of the pelvis is degraded by streak artifact from a left hip arthroplasty. The bladder is distended but otherwise normal as imaged. The uterus is surgically absent. No adnexal lesion is seen. Skeletal structures: The skeletal structures are osteopenic. The skeletal structures are osteopenic. There is an severe spondylosis with postsurgical change from L4-S1 spinal fusion. No lytic or blastic lesions are seen. A left hip arthroplasty is in place. IMPRESSION: 1. The partially visualized distal esophagus/gastric pull-through is markedly thick walled and edematous. This could represent a severe gastritis/esophagitis or possibly a mass lesion. Clinical correlation will be required and endoscopy could be considered for further assessment. 2. There is a 12 mm focal outpouching of the distal esophagus/gastric pull- through versus necrotic paraesophageal lymph node. 3. Trace right pleural effusion with associated pleural thickening. This was also seen in 2016. 4. No acute infectious or inflammatory findings are identified in the abdomen or pelvis. 5. Additional findings as above. ACT 112: Negative or not required by law. Electronically signed by: Doug Figueredo M.D. 10/31/2022 4:40 PM Chest CTA 10/31/22 15:58 CT angio chest PE protocol CLINICAL HISTORY: PE TECHNIQUE: Multidetector row helical CT of the chest was performed with angiographic protocol. Coronal and sagittal reformations were obtained. Coronal and sagittal MIPS were obtained from the axial data set and were submitted for review. Automated dose lowering techniques and/or adjustment according to patient size were utilized for this exam. Comparison: Comparison is made to chest radiograph 10/31/2022 FINDINGS: Lungs and pleura: Diffuse centrilobular emphysema is seen most prominent in the upper lobes. Atelectasis versus scarring is seen in the lungs. There is a small right pleural effusion. There is a 5 mm pulmonary nodule in the right upper lobe (series 4 image 180). Heart and pericardium: Heart size is normal. No pericardial effusion. Vessels: No evidence of pulmonary embolism. Bovine arch is noted. Mediastinum and patricia: The esophagus is markedly patulous. There is postsurgical change from esophageal resection with gastric pull-through. Chest wall and lower neck: Right port catheter is unchanged. Abdomen: For findings below the diaphragm, please refer to CT of the abdomen dated the same. Bones: Degenerative changes in the thoracic spine. IMPRESSION: 1. No evidence of pulmonary embolism. 2. Postsurgical changes of esophageal resection and gastric pull-through. 3. Additional findings as above. ACT 112: Negative or not required by law. Electronically signed by: Louie Hardy M.D. 10/31/2022 4:29 PM Discharge Plan Visit Data Chief Complaint: Weakness ED Provider: Janak Nogueira Discharge Problem: Atrial fibrillation with RVR Patient Disposition: Admitted As Inpatient Forms Stand Alone Forms: [facility] Prescriptions Prescriptions: No Action acetaminophen [Tylenol Extra Strength] 500 mg tablet 500 mg PO Q4 PRN (Reason: Pain) albuterol sulfate 2.5 mg /3 mL (0.083 %) solution for nebulization 2.5 mg inhalation Q4H PRN (Reason: Abdominal Discomfort) mecobalamin (vitamin B12) 1,000 mcg lozenge 1,000 mcg PO DAILY Rx Instructions: allow to dissolve in mouth OR may chew lightly before swallowing ferrous sulfate [FeroSul] 325 mg (65 mg iron) tablet 325 mg PO DAILY ropinirole 0.25 mg tablet 0.5 mg PO HS Rx Instructions: take 2 tablets with food fluticasone propionate [Flovent HFA] 220 mcg/actuation HFA aerosol inhaler 2 puff inhalation BID PRN (Reason: as directed) Spiriva with HandiHaler 18 mcg capsule, w/inhalation device 1 cap inhalation DAILY PRN (Reason: as directed) Rx Instructions: puncture 1 cap using device; one dose = 2 inhalations cholecalciferol (vitamin D3) 25 mcg (1,000 unit) capsule 25 mcg PO DAILY aspirin 81 mg tablet,chewable 81 mg PO DAILY prochlorperazine maleate [Compazine] 5 mg tablet 5 mg PO TID PRN (Reason: nausea and vomiting) Qty: 30 1RF Rx Instructions: Metoclopramide has been stopped. nitroglycerin 0.4 mg tablet, sublingual 0.4 mg SL UD PRN (Reason: chest pain) Qty: 1 Rx Instructions: may repeat 3 times if chest pain continues call 911 atorvastatin 80 mg Tablet 80 mg PO HS trazodone 150 mg Tablet 150 mg PO HS duloxetine [Cymbalta] 30 mg Capsule,Delayed Release(Dr/Ec) 30 mg PO QAM Eliquis 5 mg tablet 5 mg PO AMHS ondansetron 4 mg tablet,disintegrating 4 mg PO Q8H PRN (Reason: nausea and vomiting) Qty: 60 0RF mirtazapine 15 mg tablet 15 mg PO HS omeprazole 40 mg capsule,delayed release(DR/EC) 40 mg PO DAILYBB metoprolol succinate 25 mg tablet extended release 24 hr 25 mg PO QAM magnesium oxide 400 mg magnesium Tablet 400 mg PO DAILY albuterol sulfate 90 mcg/actuation Hfa Aerosol Inhaler 2 puff INHALATION Q4 PRN (Reason: Wheezing) Referrals Referrals: Juliane Oconnor DO [Primary Care Provider] -
[2022-10-31 14:32] LABS: Basophils # (auto) 0.05 K/uL (0-0.2); Basophils % (auto) 0.3 %; Eosinophils # (auto) 0.02 K/uL (0-0.50); Eosinophils % (auto) 0.1 %; Hematocrit (blood only) 40.7 % (34.1-44.9); Immature Granulocytes # (auto) 0.26 K/uL (0.00-0.02); Immature Granulocytes % (auto) 1.7 %; Lymphocytes # (auto) 3.28 K/uL (1.2-3.4); Lymphocytes % (auto) 20.8 %; Mean Corpuscular Hemoglobin 29.7 pg (25.0-34.0); Mean Corpuscular Hgb Conc 31.9 g/dL (32.0-36.0); Mean Corpuscular Volume 92.9 fL (80.0-100.0); Mean Platelet Volume 9.4 fL (9.4-12.3); Monocytes # (auto) 1.28 K/uL (0.24-0.82); Monocytes % (auto) 8.1 %; Neutrophils # (auto) 10.85 K/uL (1.4-6.5); Platelet Count 657 K/uL (130-400); RDW Coefficient of Variation 14.9 % (11.5-14.5); RDW Standard Deviation 50.9 fL (36.4-46.3); Red Blood Count 4.38 M/uL (3.93-5.22); White Blood Count 15.74 K/ul (4.8-10.8)
[2022-10-31] MEDS ORDERED: STAT IV Infusion **Titration per Protocol STA (14:48)
[2022-10-31 14:52] LABS: INR 1.2 (0.9-1.1); Partial Thromboplastin Ratio 1.2; Partial Thromboplastin Time 34.2 Seconds (21.0-31.0); Prothrombin Time 12.6 Seconds (9.0-12.0)
[2022-10-31 15:06] LABS: Albumin Globulin Ratio 0.9 (0.9-2); BUN Creatinine Ratio 11.6 (10-20); Bilirubin,Total 0.5 mg/dl (0.2-1.0); Calcium 8.9 mg/dl (8.5-10.1); Creatinine Clr Calc Pharmacy 48.2 ml/min; Est GFR (African American) 69.4 ml/min; Est GFR (Non-African American) 59.8 ml/min; Globulin 3.2 gm/dl (2.5-4.0); Potassium 3.6 mmol/L (3.5-5.1); Total Protein 6.2 gm/dl (6.0-8.3)
[2022-10-31] MEDS: dilTIAZem HCL 125 MG in DEXTROSE 5% 100 ML IV SCH (15:06)
--- NOTE | 2022-10-31 15:13 | XRay Report ---
SINGLE VIEW CHEST CLINICAL HISTORY: Atypical chest pain. FINDINGS: An AP, portable, upright chest radiograph is compared to study dated 09/20/2022 and correla lyle with chest CT dated 09/17/2022. A right internal jugular central venous catheter is new from [facility]. The patient is status post midline sternotomy. The cardiomediastinal silhouette is unremarkable noting atherosclerotic calcification of the thoracic aorta. Emphysema and chronic interstitial thick ening is similar to previous. There are small pleural effusions, right larger than left with foci of parenchymal scarring in the lower lungs. Fibrotic change and fluid is incidental right apex. No pneum othorax is seen. The skeletal structures are osteopenic. The bony thorax is grossly intact. Fusion ratliff rdware is noted in the lower cervical spine. IMPRESSION: 1. Small pleural effusions, right larger than left with bibasilar scarring/atelectasis. 2. Emphysema. ACT 112: Negative or not required by law. Electronically signed by: Doug Figueredo M.D. 10/31/2022 3:11 PM
[2022-10-31 15:55] LABS: Influenza A virus by PCR Negative (Neg); Influenza B virus by PCR Negative (Neg); RSV by PCR Negative (Neg); SARS CoV2 RNA(COVID-19) Ceph NEGATIVE (Negative)
--- NOTE | 2022-10-31 16:30 | CT Scan Report ---
CT angio chest PE protocol CLINICAL HISTORY: PE TECHNIQUE: Multidetector row helical CT of the chest was performed with angiographic protocol. Chaudhry l and sagittal reformations were obtained. Coronal and sagittal MIPS were obtained from the axial chico a set and were submitted for review. Automated dose lowering techniques and/or adjustment according to patient size were utilized for this exam. Comparison: Comparison is made to chest radiograph 10/31/2022 FINDINGS: Lungs and pleura: Diffuse centrilobular emphysema is seen most prominent in the upper lobes. Atelecta sis versus scarring is seen in the lungs. There is a small right pleural effusion. There is a 5 mm pu lmonary nodule in the right upper lobe (series 4 image 180). Heart and pericardium: Heart size is normal. No pericardial effusion. Vessels: No evidence of pulmonary embolism. Bovine arch is noted. Mediastinum and patricia: The esophagus is markedly patulous. There is postsurgical change from esophagea l resection with gastric pull-through. Chest wall and lower neck: Right port catheter is unchanged. Abdomen: For findings below the diaphragm, please refer to CT of the abdomen dated the same. Bones: Degenerative changes in the thoracic spine. IMPRESSION: 1. No evidence of pulmonary embolism. 2. Postsurgical changes of esophageal resection and gastric pull-through. 3. Additional findings as above. ACT 112: Negative or not required by law. Electronically signed by: Louie Hardy M.D. 10/31/2022 4:29 PM
--- NOTE | 2022-10-31 16:43 | CT Scan Report ---
CT SCAN OF THE ABDOMEN AND PELVIS WITH IV CONTRAST CLINICAL HISTORY: Vomiting. COMPARISON STUDY: Abdominal CT dated scans dated 09/17/2022 and 12/23/2015. TECHNIQUE: Following the IV administration of 118 cc of Optiray 320, CT scan of the abdomen and pelv is is performed from the lung bases to the proximal femora. Images are reviewed in the axial, sagitta l, and coronal planes. IV contrast was administered without complication. A dose lowering technique w as utilized adhering to the principles of ALARA. CT DOSE: 629.99 mGy.cm FINDINGS: Lung bases: The patient is status post midline sternotomy. The heart is normal in size and without pe ricardial effusion. There is trace right pleural effusion with bibasilar scarring/atelectasis. Pleura l thickening is seen at the right lung base. Postsurgical change is noted at the gastroesophageal saundra ction with evidence of at least partial gastric pull-through. The distal esophagus/gastric pull-throu gh is markedly thick walled and edematous. There is a 1.8 cm outpouching from the distal aspect of th e distal esophagus/stomach at this level versus a necrotic paraesophageal lymph node seen on image #1 2. Liver: The contrast-enhanced liver is normal in size, contour, and attenuation. There is no intrahepa tic biliary ductal dilatation. The hepatic veins and portal veins are patent. Gallbladder: Surgically absent and clips in the gallbladder fossa. Spleen: Normal in size and attenuation. Pancreas: Moderately atrophic and grossly unremarkable. Adrenal glands: Unremarkable. Kidneys: The contrast enhanced kidneys demonstrate mild cortical atrophy and are without hydronephros is. There are bilateral renovascular calcifications. The kidneys enhance symmetrically. Abdominal vasculature: The abdominal aorta is normal in course and caliber noting moderate to advance d atherosclerotic calcification. Bowel: There is no bowel obstruction. Residual enteric contrast is seen throughout the colon. There i s mild colonic diverticulosis without CT evidence of acute diverticulitis. The appendix is well-visu alized and normal. Peritoneum: There is no intraperitoneal free air or abdominal ascites. Lymphadenopathy: None. Pelvic viscera: Evaluation of the pelvis is degraded by streak artifact from a left hip arthroplasty. The bladder is distended but otherwise normal as imaged. The uterus is surgically absent. No adnexal lesion is seen. Skeletal structures: The skeletal structures are osteopenic. The skeletal structures are osteopenic. There is an severe spondylosis with postsurgical change from L4-S1 spinal fusion. No lytic or blastic lesions are seen. A left hip arthroplasty is in place. IMPRESSION: 1. The partially visualized distal esophagus/gastric pull-through is markedly thick walled and edemat ous. This could represent a severe gastritis/esophagitis or possibly a mass lesion. Clinical correlat ion will be required and endoscopy could be considered for further assessment. 2. There is a 12 mm focal outpouching of the distal esophagus/gastric pull-through versus necrotic pa raesophageal lymph node. 3. Trace right pleural effusion with associated pleural thickening. This was also seen in 2016. 4. No acute infectious or inflammatory findings are identified in the abdomen or pelvis. 5. Additional findings as above. ACT 112: Negative or not required by law. Electronically signed by: Doug Figueredo M.D. 10/31/2022 4:40 PM
[2022-10-31] MEDS ORDERED: CEFEPIME 2,000 MG/20 ML VIAL IV STA (17:06)
[2022-10-31] MEDS ORDERED: VANCOMYCIN HCL 1,250 MG in SODIUM CHLORIDE 0.9% 500 ML IV ONE (17:06)
[2022-10-31] MEDS ORDERED: VANCOMYCIN CONSULT ACTIVE PRN (17:06)
[2022-10-31] MEDS ORDERED: SODIUM CHLORIDE 0.9% 1000ML 1,000 ML IV ONE (17:07)
[2022-10-31 19:56] LABS: Appearance Urine Clear (Clear); Bilirubin Urine Negative (Negative); Blood Urine Negative (Negative); Color Urine Yellow; Glucose Urine UA Negative (Negative); Ketones Urine Negative (Negative); Leukocyte Esterase Urine Negative (Negative); Nitrite Urine Negative (Negative); Protein Urine Negative (Negative); Specific Gravity Urine 1.044 (1.000-1.030); Urobilinogen Urine Negative (Negative)
--- NOTE | 2022-10-31 20:13 | Electrocardiogram Report ---
Test Reason : Blood Pressure : / mmHG Vent. Rate : 191 BPM Atrial Rate : 182 BPM P-R Int : 000 ms QRS Dur : 086 ms QT Int : 244 ms P-R-T Axes : 000 047 260 degrees QTc Int : 435 ms Supraventricular tachycardia Marked ST abnormality, possible inferolateral subendocardial injury Abnormal ECG When compared with ECG of 18-SEP-2022 23:18, Vent. rate has increased BY [address] now depressed in Inferior leads ST now depressed in Lateral leads T wave inversion now evident in Inferior leads T wave inversion now evident in Lateral leads Confirmed by Lupillo Montesinos ([id number]) on 10/31/2022 8:12:58 PM Referred By: SELF Confirmed By:Germain Montesinos
--- NOTE | 2022-10-31 20:14 | Electrocardiogram Report ---
Test Reason : Blood Pressure : / mmHG Vent. Rate : 118 BPM Atrial Rate : 117 BPM P-R Int : 000 ms QRS Dur : 086 ms QT Int : 234 ms P-R-T Axes : 000 056 -84 degrees QTc Int : 327 ms Atrial fibrillation with rapid ventricular response with premature ventricular or aberrantly conducte d complexes Abnormal ECG When compared with ECG of 31-OCT-2022 14:19, (unconfirmed) T wave inversion more evident in Lateral leads Confirmed by Lupillo Montesinos ([id number]) on 10/31/2022 8:14:05 PM Referred By: SELF Confirmed By:Germain Montesinos
--- NOTE | 2022-10-31 20:14 | Electrocardiogram Report ---
Test Reason : Blood Pressure : / mmHG Vent. Rate : 143 BPM Atrial Rate : 144 BPM P-R Int : 000 ms QRS Dur : 084 ms QT Int : 302 ms P-R-T Axes : 000 053 -67 degrees QTc Int : 466 ms Atrial fibrillation with rapid ventricular response Abnormal ECG When compared with ECG of 31-OCT-2022 14:16, (unconfirmed) Atrial fibrillation has replaced Sinus rhythm Confirmed by Lupillo Montesinos ([id number]) on 10/31/2022 8:13:50 PM Referred By: SELF Confirmed By:Germain Montesinos
--- NOTE | 2022-10-31 20:15 | Electrocardiogram Report ---
Test Reason : Blood Pressure : / mmHG Vent. Rate : 132 BPM Atrial Rate : 132 BPM P-R Int : 144 ms QRS Dur : 084 ms QT Int : 294 ms P-R-T Axes : 050 054 -37 degrees QTc Int : 435 ms Poor data quality, interpretation may be adversely affected Sinus tachycardia Abnormal ECG When compared with ECG of 31-OCT-2022 14:05, (unconfirmed) ST no longer depressed in Inferior leads ST less depressed in Lateral leads Confirmed by Lupillo Montesinos ([id number]) on 10/31/2022 8:15:23 PM Referred By: SELF Confirmed By:Germain Montesinos
[2022-10-31] MEDS ORDERED: ALBUTEROL 0.083% NEBU SOLN 3 ML VIAL INH PRN (20:24)
[2022-10-31] MEDS ORDERED: ALBUTEROL HFA 8 GM INHALER INH PRN (20:24)
[2022-10-31] MEDS ORDERED: NITROGLYCERIN SL 0.4 MG/TAB TAB SL PRN ×2 (20:24)
[2022-10-31] MEDS ORDERED: PROCHLORPERAZINE MALEATE 5 MG TAB PO PRN (20:24)
[2022-10-31] MEDS ORDERED: PIPERACILLIN/TAZOBACTAM 3.375 GM in DEXTROSE 5% 100 ML IV ONE (20:45)
[2022-10-31] MEDS: SODIUM CHLORIDE 0.9% 1000ML 1,000 ML IV SCH (21:00)
[2022-10-31] MEDS: MIRTAZAPINE TAB 15 MG TAB PO SCH (21:09)
[2022-10-31] MEDS: APIXABAN 5 MG TABLET PO SCH (21:10)
[2022-10-31] MEDS: rOPINIRole HCL 0.25 MG TABLET PO SCH (21:10)
[2022-10-31] MEDS: ATORVASTATIN 40 MG TAB PO SCH (21:11)
--- NOTE | 2022-10-31 21:19 | History and Physical Report ---
DATE OF ADMISSION: 10/31/2022 CHIEF COMPLAINT: Nausea, SVT and rapid AFib. HISTORY OF PRESENT ILLNESS: A 72-year-old female with past medical history significant for CAD, status post CABG, status post stent, paroxysmal atrial fibrillation, on Eliquis, history of resolved cardiomyopathy, , history of peripheral vascular disease, history of TIA, hypertension, hyperlipidemia, history of Williamson's esophagus, recent diagnosis of esophageal adenocarcinoma, history of prediabetes, chronic anemia, baseline hemoglobin 9-10, history of tobacco abuse, used to smoke 1-2 packs of cigarettes daily, currently on nicotine patch, currently smoking 1-2 cigarettes daily. The patient was recently diagnosed with esophageal adenocarcinoma, diagnosed on 09/03/2022.Recently on 10/17/2022 when she was in suite for EGD, she was off of metoprolol succinate for 2 days and she went into PSVT at a rate of 170 beats per minute. She was given IV Lopressor and her heart rate improved. Seen by cardiology and her metoprolol succinate was increased to 50 mg daily from 25. Today, she was at radiation oncology office, the patient felt nauseous, vomited 3 times. No blood in the vomitus and she was feeling sick, heart racing and she was brought into the ER. In the ER when she came in she was in SVT at rate of 191. She was given 6 mg of iv adenosine she converted to sinus tachycardia but soon went into rapid AFib, rate of 140s and she was started on Cardizem drip, currently rate controlled with the Cardizem drip, resting comfortably. Denies any chest pain. Currently no headache, no dizziness, no blurred visions, no earache. She has runny nose for a couple of months. No sore throat. No cough. She is eating and swallowing okay. She says she is on a regular diet. No abdominal pain. Normal bladder movements. No swelling in the legs. She ambulates without support, lives with her . ALLERGIES: SUMATRIPTAN ,VARENICLINE. PAST MEDICAL HISTORY: As mentioned above. PAST SURGICAL HISTORY: CABG, cardiac stent placement, carpal tunnel surgery, colonoscopy with biopsy, cystoscopy, EGD multiple, EGD with biopsy, right knee arthroscopy, maxillary sinus endoscopy, nasal sinus endoscopy, paraesophageal hernia repair laparoscopic in 2017, total knee arthroplasty bilateral knees, removal of prosthesis of the knees, tonsillectomy, cholecystectomy, left wrist ganglion removal, total abdominal hysterectomy with removal of tubes, left total hip replacement. MEDICATIONS: The patient is on Tylenol 500 mg p.o. 4 hours p.r.n., albuterol 2 puffs inhalation q. 4 hours p.r.n., albuterol nebulization q. 4 hours p.r.n., aspirin 81 mg p.o. daily, atorvastatin 80 mg p.o. at bedtime, vitamin D 25 mcg p.o. daily, Cymbalta 30 mg p.o. a.m., Eliquis 5 mg p.o. b.i.d., ferrous sulfate 325 mg p.o. daily, Flovent 2 puffs inhalation b.i.d., magnesium oxide 400 mg p.o. daily, vitamin B12 1000 mcg p.o. daily, metoprolol succinate 50 mg p.o. daily, mirtazapine 15 mg p.o. at bedtime, nitroglycerin 0.4 mg sublingual p.r.n., omeprazole 40 mg p.o. daily, Zofran 4 mg p.o. q. 8 hours p.r.n., prochlorperazine 5 mg p.o. t.i.d. p.r.n., ropinirole 0.5 mg p.o. at bedtime, Spiriva 1 capsule inhalation daily, trazodone 150 mg p.o. at bedtime. FAMILY HISTORY: Significant for mother has breast cancer, father has heart disorder; sister has breast cancer, daughter has fibromyalgia. SOCIAL HISTORY: . History of smoking 1-2 packs daily for 46 years, currently trying to quit and on nicotine patch and smokes 1-2 cigarettes daily. Alcohol, rarely. No drug use. REVIEW OF SYSTEMS: As per HPI. Rest of the review of systems is negative. PHYSICAL EXAMINATION: GENERAL: The patient is of moderate build, not in acute distress. VITAL SIGNS: Temperature, currently afebrile, pulse currently 96, respiratory rate 16, blood pressure 125/75, oxygen 95% on room air. HEENT: Pupils equal, round and reactive to light. Oral mucosa moist. NECK: No JVD. No neck masses. CARDIOVASCULAR: S1 and S2 heard, regular rate and rhythm. No murmur, no gallop. RESPIRATORY SYSTEM: Normal AP diameter. No accessory muscle use. No wheezing, no crackles. ABDOMEN: Soft, bowel sounds present. Nontender. CENTRAL NERVOUS SYSTEM: Cranial nerves II through XII grossly intact, nonfocal. EXTREMITIES: No edema, no erythema. LABORATORY DATA: WBC 15, hemoglobin 13, hematocrit 40.7, platelets 657. PT of 12.6, INR 1.2, APTT 34.2. Sodium 136, potassium 3.6, chloride 97, bicarbonate 23, BUN 11, creatinine 0.95. Serum glucose 203, calcium 8.9, total bilirubin 0.5, AST 15, ALT 9, alkaline phosphatase 121. Troponin I high sensitivity 24, lipase 20. SARS-CoV-2 PCR negative. Influenza A and B PCR negative. RSV PCR negative. IMAGING DATA: CTA chest with PE protocol, no evidence of pulmonary embolism. Postsurgical change of esophageal resection and gastric pull-through. CT abdomen and pelvis with IV contrast partially visualized distal esophagus, gastric pull-through is markedly thick walled and edematous, this could represent severe gastritis or esophagitis or possibly mass lesion, clinical correlation will be required. Endoscopy should be considered for further assessment. There is 12 mm focal outpouching of the distal gastric or esophagus pull-through versus necrotic paraesophageal lymph node. Trace right pleural effusion with associated pleural thickening. Chest x-ray, small pleural effusions, right greater than left. Emphysema. EKG: On presentation SVT at a rate of 191, ST depression in inferior and lateral leads. Repeat EKG after adenosine seemed to be, sinus tachycardia at rate of 132, ST-T wave abnormalities. Repeat EKG: Rapid AFib at a rate of 143. Repeat AFib with rapid rate of 118, non specific ST abnormalities. ASSESSMENT AND PLAN: This is a 72-year-old female, who was recently diagnosed with esophageal cancer. Plan for chemoradiation and then surgery as per the patient and she was at radiation oncology office today when she felt nauseous and heart racing and was brought in here and found to be in SVT, resolved with adenosine and later converted to rapid atrial fibrillation, currently on IV Cardizem, resting comfortably. 1. History of supraventricular tachycardia and rapid atrial fibrillation. She has a history of paroxysmal supraventricular tachycardia and atrial fibrillation. Recently her metoprolol dose was increased to 50 mg, which she took in the morning .Currently, placed on Cardizem drip, which we will be continued. The patient is on Eliquis and aspirin, which will be continued. Monitor closely in the tele floor. Consult cardiology in the a.m. 2. Possible sepsis with elevated white count and tachycardia. The ER gave aggressive fluids and also gave IV vancomycin and cefepime. Continue with IV normal saline at 100 mL per hour. Continue with Zosyn for MRSA screen. Monitor lactic acid levels and blood cultures and monitor for response. 3. Gastritis and esophagitis. Placed on IV Protonix b.i.d. and clear liquid diet for now and consult GI in the a.m. for further recommendations. 4. Esophageal cancer, recently diagnosed. Follow with hem/onc and radiation oncology. 5. Mild elevation in troponin, mostly demand ischemia. Follow repeat enzymes. 6. History of chronic obstructive pulmonary disease: Not on home oxygen. Continue her home inhalers. We will monitor. 7. Prediabetes: Follow HbA1c levels. 8. Hypertension. Continue her home medication of metoprolol. We will monitor the blood pressure. 9. History of coronary artery disease, status post stents with coronary artery bypass graft. Continue aspirin, statin, and beta yair. 10. Depression. Continue on duloxetine and Remeron. 11. Peripheral vascular disease: On aspirin and statin. 12. History of Williamson's esophagus. Currently, placed on IV Protonix. 13. History of transient ischemic attack, on aspirin and statin. 14. Deep venous thrombosis prophylaxis: On Eliquis. DISPOSITION: Closely monitor in the tele floor. Level 1 full code. Expect to discharge home and follow with family doctor. Social service to help with discharge planning. Job ID: [id number] [facility]
[2022-10-31] MEDS: NICOTINE 21 MG/24 HR TDSY TD SCH (21:31)
[2022-10-31] MEDS: traZODone HCL 50 MG TAB PO SCH (21:35)
[2022-10-31] MEDS: PANTOprazole 40 MG in SYRINGE 0 ML IV SCH (22:20)
[2022-11-01] MEDS: dilTIAZem HCL 125 MG in DEXTROSE 5% 100 ML IV SCH (03:45)
[2022-11-01] MEDS: PIPERACILLIN/TAZOBACTAM 3.375 GM in DEXTROSE 5% 100 ML IV SCH ×3 (03:57→20:52)
[2022-11-01] MEDS: SODIUM CHLORIDE 0.9% 1000ML 1,000 ML IV SCH ×2 (06:05→17:06)
[2022-11-01 06:06] LABS: Basophils # (auto) 0.02 K/uL (0-0.2); Basophils % (auto) 0.2 %; Eosinophils # (auto) 0.03 K/uL (0-0.50); Eosinophils % (auto) 0.3 %; Hematocrit (blood only) 27.4 % (34.1-44.9); Immature Granulocytes # (auto) 0.12 K/uL (0.00-0.02); Immature Granulocytes % (auto) 1.1 %; Lymphocytes # (auto) 1.78 K/uL (1.2-3.4); Lymphocytes % (auto) 16.2 %; Mean Corpuscular Hemoglobin 29.8 pg (25.0-34.0); Mean Corpuscular Hgb Conc 32.8 g/dL (32.0-36.0); Mean Corpuscular Volume 90.7 fL (80.0-100.0); Mean Platelet Volume 9.2 fL (9.4-12.3); Monocytes # (auto) 0.98 K/uL (0.24-0.82); Monocytes % (auto) 8.9 %; Neutrophils # (auto) 8.03 K/uL (1.4-6.5); Neutrophils % (auto) 73.3 %; Platelet Count 382 K/uL (130-400); RDW Coefficient of Variation 14.9 % (11.5-14.5); RDW Standard Deviation 49.4 fL (36.4-46.3); Red Blood Count 3.02 M/uL (3.93-5.22); White Blood Count 10.96 K/ul (4.8-10.8)
[2022-11-01 06:20] LABS: Troponin I High Sensitivity 54.3 pg/ml (0-14)
[2022-11-01 06:28] LABS: BUN Creatinine Ratio 9.4 (10-20); Calcium 7.2 mg/dl (8.5-10.1); Creatinine Clr Calc Pharmacy 84.7 ml/min; Est GFR (African American) 109.9 ml/min; Est GFR (Non-African American) 94.9 ml/min; Magnesium 1.6 mg/dl (1.7-2.4); Potassium 2.8 mmol/L (3.5-5.1)
[2022-11-01] MEDS: POTASSIUM CHLORIDE CRTAB 20 MEQ TABCR PO SCH ×2 (08:09→09:55)
[2022-11-01] MEDS: POTASSIUM CHLORIDE / WTR 10 MEQ/100 ML PLCT IV SCH ×2 (08:09→09:31)
[2022-11-01] MEDS: MAGNESIUM SULFATE / D5W 1 GM/100 ML BAG IV SCH ×3 (08:10→13:06)
[2022-11-01] MEDS: APIXABAN 5 MG TABLET PO SCH ×2 (08:16→20:52)
[2022-11-01] MEDS: ASPIRIN 81 MG ECTAB PO SCH (08:16)
[2022-11-01] MEDS: PANTOprazole 40 MG in SYRINGE 0 ML IV SCH ×2 (08:16→20:52)
[2022-11-01] MEDS: MAGNESIUM OXIDE 400 MG TAB PO SCH (08:17)
[2022-11-01] MEDS: CYANOCOBALAMIN (B-12) 500 MCG TABLET PO SCH (08:17)
[2022-11-01] MEDS: DULoxetine HCL 30 MG CAP PO SCH (08:17)
[2022-11-01] MEDS: CHOLECALCIFEROL 1,000 UNITS 25 MCG TAB PO SCH (08:17)
[2022-11-01] MEDS: FERROUS SULFATE 325 MG TAB PO SCH (08:17)
[2022-11-01] MEDS: UMECLIDINIUM BROMIDE 62.5MCG/BLISTER 7 PUFFS/INHALER INH SCH (08:18)
[2022-11-01] MEDS: FLUTICASONE FUROATE 200MCG 14 PUFFS/INHALER INH SCH (08:18)
[2022-11-01] MEDS: METOPROLOL SUCC 50MG EXT REL TAB PO SCH (08:19)
[2022-11-01] MEDS: NICOTINE 21 MG/24 HR TDSY TD SCH (08:19)
[2022-11-01 10:03] LABS: A calco-baum cmplx NotReported Not Detected (NotDetected); Bact fragilis Not Reported Not Detected (NotDetected); C auris Not Reported Not Detected (NotDetected); Calbicans Not Reported Not Detected (NotDetected); Candida glabrata Not Reported Not Detected (NotDetected); Candida krusei Not Reported Not Detected (NotDetected); Cneoformans/gatti Not Reported Not Detected (NotDetected); Cparapsilosis Not Reported Not Detected (NotDetected); Ctropicalis Not Reported Not Detected (NotDetected); E cloacae compx Not Reported Not Detected (NotDetected); Efaecalis Not Reported Not Detected (NotDetected); Efaecium Not Reported Not Detected (NotDetected); Enterobacterales Not Reported Not Detected (NotDetected); Escherichia coli Not Reported Not Detected (NotDetected); H influenzae Not Reported Not Detected (NotDetected); K aerogenes Not Reported Not Detected (NotDetected); Koxytoca Not Reported Not Detected (NotDetected); Kpneumoniae grp Not Reported Not Detected (NotDetected); Lmonocyt Not Reported Not Detected (NotDetected); N meningitidis Not Reported Not Detected (NotDetected); P aeruginosa Not Reported Not Detected (NotDetected); Proteus spp Not Reported Not Detected (NotDetected); Salmonella spp Not Reported Not Detected (NotDetected); Smarcescens Not Reported Not Detected (NotDetected); Staph lugdunensis Not Reported Not Detected (NotDetected); Staph spp. Not Reported DETECTED (NotDetected); Staphaureus Not Reported Not Detected (NotDetected); Staphylococcus epidermidis DETECTED (NotDetected); Staphylococcus spp. DETECTED (NotDetected); Stenmaltophilia Not Reported Not Detected (NotDetected); Strep agal(GrpB) Not Reported Not Detected (NotDetected); Strep pneum Not Reported Not Detected (NotDetected); Strep pyog (GrpA) Not Reported Not Detected (NotDetected); Strep spp Not Reported Not Detected (NotDetected); mecAC Resistant Gene DETECTED (NotDetected)
[2022-11-01 10:23] LABS: Staphepi Not Reported DETECTED (NotDetected)
[2022-11-01 10:37] LABS: Estimated Average Glucose 108 mg/dl; Hemoglobin A1C 5.4 % (4.5-5.6)
--- NOTE | 2022-11-01 11:33 | Hospitalist Progress Note ---
Date of Service November 01, 2022 Assessment & Plan (1) Atrial fibrillation with RVR: (2) Esophageal carcinoma: Plan 72-year-old lady with PMH of CAD status post CABG and status post stent, PAF on Eliquis, CM [EF 55 to 60% on TTE 2017], PVD, TIA, HTN, HLD, Williamson's esophagus, recent diagnosis of esophageal adenocarcinoma 09/03/22, prediabetes, chronic anemia [baseline hemoglobin 9-10], ongoing tobacco abuse presented to our ED 09/17 with complaint of SVT, Nausea and vomiting. Of note, during recent EGD/EUS attempt on Oct 17, she had SVT and procedure aborted. She was off of metoprolol for 2 days. She was in oncology office on the day of arrival where she vomited/nauseous and went in SVT; hence presented to ED. She is being managed for the following: Nausea/vomiting Recent diagnosis of esophageal carcinoma: follows dr De Leon and dr Ni Gastritis and esophagitis Patient had episode of nausea and vomiting at oncology office on the day of arrival [see above] Diagnosed with esophageal adenocarcinoma 09/03/2022, was undergoing EGD/EUS on October 17 as part of onco w/u which was aborted due to SVT. Pt follows Dr. De Leon and Dr. Ni. Pt continues to smoke, pt has recurrent nausea and vomiting. Admitting CTAP: 1. The partially visualized distal esophagus/gastric pull-through is markedly thick walled and edematous. This could represent a severe gastritis/esophagitis or possibly a mass lesion. Clinical correlation will be required and endoscopy could be considered for further assessment. 2. There is a 12 mm focal outpouching of the distal esophagus/gastric pull-through versus necrotic paraesophageal lymph node. 3. Trace right pleural effusion with associated pleural thickening. This was also seen in 2016. 4. No acute infectious or inflammatory findings are identified in the abdomen or pelvis. For Nausea/vomiting: zofran as needed, slippery small freq meals, Pedialytes solution by bedside, c/w PPI, Clear liq diet until evaled by GI, await GI recs. c/w IVF, monitor and replete electrolytes. Pt will need to maintain f/u w/ her OP oncology team. Dehydration/Concern for infection or sepsis POA: 2/2 to vomiting [employer] on the background of decreased appetite d/t underlying esophageal Ca. All three cell lines elevated at presentation, came down w/ iv hydration, Pt was started on Zosyn 10/31 for possible infection, will get procal on yesterday's lab if possible and DC zosyn if neg. Pt afebrile, UA wnl. CXR no acute process. Likely demand ischemia secondary to tachycardia SVT/ Afib RVR Pt presented w/ SVT, trop elevated, pt w/ no chest pain Likely demand ischemia, continue tele, pt has h/o orthostatic hypotension --> slow transition between position changes, pt aware. 09/18/2022 echo: EF 60 to 65%, grade 2 diastolic dysfunction. Moderate concentric LVH. c/w eliquis. s/p Diltiazem, c/w metoprolol. Cardio on board. Monitor and replete electrolytes. Other chronic medical conditions:CAD status post CABG/stent, PVD, PAF on Eliquis, CM, TIA, HTN, HLD, Williamson's esophagus, chronic anemia, prediabetes, ongoing tobacco abuse --->> continue with/resume home meds as and when able. DVT prophylaxis: On Eliquis Full code Admission and Anticipated Discharge Date Admission Date: October 31, 2022 Subjective Patient seen and examined at bedside as a follow-up of supraventricular tachycardia and A. fib with RVR, nausea and vomiting on the background of recent diagnosis of esophageal carcinoma, possible sepsis. Patient was lying in bed, on room air, NAD, reports no further nausea and vomiting while in hospital, patient is on liquid diet until evaluated by GI, patient denies any chest pain or feeling of heart racing, patient denies any headache or dizziness, denies other review of symptoms. Patient reports having 1 loose stool in the morning. Physical Exam Physical Exam: GENERAL: Alert and oriented x3. NAD, on RA. Appears ill and frail. HEENT: No pallor, no icterus. Pupils equal, round and reactive to light. Oral mucosa moist. NECK: No JVD, no neck masses. HEART: S1 and S2 heard. Tachycardia. No murmur, no gallop. RESPIRATORY SYSTEM: Normal AP diameter. No accessory muscle use. No wheezing, no crackles. ABDOMEN: Soft, bowel sounds present, nontender, no distention. CENTRAL NERVOUS SYSTEM: No facial droop. Speech is clear. Obeys simple commands. Moves extremities. EXTREMITIES: No edema, no erythema seen. Results & Data Results & Data ([facility]) Vital Signs (Past 12 Hours) Vital Signs Temp Pulse Pulse Pulse Resp BP Pulse Ox 11/01/22 10:53 36.7 C 72 16 92/53 L 97 11/01/22 07:28 36.8 C 76 16 106/64 94 11/01/22 06:55 74 11/01/22 05:30 11/01/22 03:44 76 107/63 11/01/22 02:22 78 O2 Del Method 11/01/22 10:53 Room Air 11/01/22 07:28 Room Air 11/01/22 06:55 11/01/22 05:30 Room Air 11/01/22 03:44 11/01/22 02:22
--- NOTE | 2022-11-01 11:54 | Billing Data ---
Date of Service November 01, 2022 Coding Level of Care Code 18273 Initial Inpt Care Lvl 3
--- NOTE | 2022-11-01 13:28 | Cardiology Consultation ---
Date of Consultation November 01, 2022 Assessment & Plan (1) Paroxysmal atrial fibrillation: -she has spontaneously converted to sinus rhythm. -continue metoprolol succinate and Eliquis. -no further workup necessary at this time. (2) PSVT (paroxysmal supraventricular tachycardia): -original diagnosis October 17, 2022. 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 -broke easily with IV adenosine while in the emergency room yesterday. (3) Coronary artery disease: -CABG x2 in April 2010. -LCx THOMAS in January 2015. -quiescent on medical management. (4) HTN (hypertension): -adequate control on current regimen. (5) Hyperlipidemia: -continue atorvastatin. History of Present Illness Attending Physician: Gerard Cole MD History of Present Illness Mrs. Olivares is a 72-year-old female admitted yesterday with an SVT followed by atrial fibrillation. This consultation was ordered to assist in her cardiac management. Of note, patient typically follows with Dr. Kemp in the outpatient setting. The patient was in her usual state of health until yesterday. She was being seen in the Radiation Oncology office when she experienced several episodes of vomiting. She was noted to be significantly tachycardic, therefore, was sent to the emergency room. On arrival, she was noted to be in an SVT which broke with intravenous adenosine. She remained in sinus rhythm for brief period of time, then developed atrial fibrillation with a rapid ventricular response. Hospitalization was recommended. The patient has a known history of a paroxysmal SVT. She had a recent episode on October 17, 2022 while she was undergoing upper endoscopy. She had been off her metoprolol succinate for several days prior to that procedure. She also carries a history of paroxysmal atrial fibrillation. She is maintained on rate control and long-term anticoagulation. The patient converted spontaneously to sinus rhythm last evening. Currently, patient is resting comfortably in bed without complaints. Past medical and surgical history 1. CABG x2 - April 2010, KELLEY to LAD, PADMINI to PDA 2. LCx THOMAS-January 2015 3. Resolved cardiomyopathy 4. Hypertension 5. Hypercholesterolemia 6. Paroxysmal atrial fibrillation 7. Paroxysmal SVT-September 2022 8. Cerebrovascular disease 9. History of CVA 10. Peripheral vascular disease 11. Hyperglycemia 12. GERD 13. Williamson's esophagus 14. Esophageal CA-August 2022 15. Chronic renal failure 16. COPD 17. Colonic polyps 18. DJD 19. Migraine headaches 20. Peripheral neuropathy 21. Lauren fundoplication-2005 22. Right TKR 23. Cholecystectomy 24. Tubal ligation 25. ANGLE/BSO Social history and lives with her Smokes 1 pack of cigarettes daily No alcohol Family history Noncontributory Review of systems A 10 review systems was undertaken and negative except for that described above. Allergies Allergy/AdvReac Type Severity Reaction Status Date / Time sumatriptan AdvReac Unknown advised to Verified 10/29/22 10:13 avoid d/t hx heart surgery varenicline AdvReac Unknown advised to Verified 10/29/22 10:13 avoid d/t hx heart surgery Home Medications Medication Instructions Recorded Confirmed Type atorvastatin 80 mg tablet 80 mg PO HS 03/22/19 10/31/22 History duloxetine 30 mg capsule,delayed 30 mg PO QAM 03/22/19 10/31/22 History release (Cymbalta) trazodone 150 mg tablet 150 mg PO HS 03/22/19 10/31/22 History nitroglycerin 0.4 mg sublingual 0.4 mg sublingual UD PRN chest 06/24/19 10/31/22 History tablet pain #1 tab apixaban 5 mg tablet (Eliquis) 5 mg PO AMHS 09/18/22 10/31/22 History ondansetron 4 mg disintegrating 4 mg PO Q8H PRN nausea and 09/20/22 10/31/22 Rx tablet vomiting #60 tabs acetaminophen 500 mg tablet 500 mg PO Q4 PRN Pain 10/29/22 10/31/22 History (Tylenol Extra Strength) albuterol sulfate 2.5 mg/3 mL 2.5 mg inhalation Q4H PRN 10/29/22 10/31/22 History (0.083 %) solution for nebulization Abdominal Discomfort ferrous sulfate 325 mg (65 mg 325 mg PO DAILY 10/29/22 10/31/22 History iron) tablet (FeroSul) fluticasone propionate 220 2 puff inhalation BID PRN as 10/29/22 10/31/22 History mcg/actuation HFA aerosol inhaler directed (Flovent HFA) mecobalamin (vitamin B12) 1,000 1,000 mcg PO DAILY 10/29/22 10/31/22 History mcg lozenges ropinirole 0.25 mg tablet 0.5 mg PO HS 10/29/22 10/31/22 History tiotropium bromide 18 mcg capsule 1 cap inhalation DAILY PRN as 10/29/22 10/31/22 History with inhalation device (Spiriva directed with HandiHaler) aspirin 81 mg chewable tablet 81 mg PO DAILY 10/30/22 10/31/22 History cholecalciferol (vitamin D3) 25 25 mcg PO DAILY 10/30/22 10/31/22 History mcg (1,000 unit) capsule prochlorperazine maleate 5 mg 5 mg PO TID PRN nausea and 10/30/22 10/31/22 Rx tablet (Compazine) vomiting #30 tabs albuterol sulfate 90 mcg/actuation 2 puff inhalation Q4 PRN Wheezing 10/31/22 10/31/22 History aerosol inhaler magnesium oxide 400 mg PO DAILY 10/31/22 10/31/22 History metoprolol succinate 50 mg 50 mg PO DAILY 10/31/22 10/31/22 History tablet,extended release 24 hr mirtazapine 15 mg tablet 15 mg PO HS 10/31/22 10/31/22 History omeprazole 40 mg capsule,delayed 40 mg PO DAILYBB 10/31/22 10/31/22 History release Patient History Medical History (Updated 11/01/22 @ 13:25 by Toi Sexton MD) Anxiety Barretts esophagus Chronic obstructive pulmonary disease CKD (chronic kidney disease), stage III Coronary artery disease CABG x 2 (2009) cardiac stent x 1 (2014 - LCx) Degenerative disc disease Depression Esophageal cancer Ganglion cyst Surgery on both wrists for this GERD (gastroesophageal reflux disease) controlled Hyperlipidemia Hypertension Learning disability cannot spell/limited reading skills Migraine "haven't had one in awhile" Myocardial Infarction "silent" IN- remote/several years ago Osteoarthritis PAD (peripheral artery disease) <50% aorta-iliac system stenosis per 09/26/19 duplex Paroxysmal atrial fibrillation Peripheral neuropathy LLE Port-A-Cath in place PVD (peripheral vascular disease) Stroke "silent" stroke noted incidentally on imaging several years ago, no residual issues Surgical History (Updated 10/29/22 @ 10:21 by Alivia Brar RN) Fusion of spine LUMBAR ACDF C5-C7: 10/30/17: Grade view 1, MAC#3, ETT 7.0 at [facility] H/O esophagogastroduodenoscopy H/O shoulder surgery Left H/O sinus surgery History of bilateral tubal ligation History of cardiac cath CABG x 2 (2009); Donna; f/u dr kemp, ca cardiac stent x 1 (2015 - LCx); [facility] History of carpal tunnel surgery History of cholecystectomy History of colonoscopy History of esophagogastroduodenoscopy (EGD) History of Lauren fundoplication History of surgery Reconstruction of pyloris History of surgery Paraesophageal hernia repair with mesh in 2017 History of tonsillectomy History of tooth extraction History of total abdominal hysterectomy and bilateral salpingo-oophorectomy History of total hip arthroplasty LEFT History of total knee replacement RT/LEFT Removal of knee prosthesis Family History (Updated 10/29/22 @ 10:25 by Alivia Brar, RN) Father , 73yo Myocardial infarction Mother , in her 80s Breast cancer Myocardial infarction Brother Natural with unknown cause Brother Natural with unknown cause Brother No problems noted. Brother No problems noted. Sister Breast cancer Sister No problems noted. Sister No problems noted. Sister No problems noted. Son No problems noted. Daughter No problems noted. Daughter No problems noted. Daughter No problems noted. 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 Other Information That Helps Us Care for You: No Feels Safe at Home: Yes Safety Concerns: Feels Safe At This Time caffeine: No during the past year weight has: remained stable Assistive Devices: Walker Results & Data ([facility]) Vital Signs (Past 12 Hours) Vital Signs Temp Pulse Pulse Pulse Resp BP Pulse Ox 11/01/22 10:53 36.7 C 72 16 92/53 L 97 11/01/22 07:28 36.8 C 76 16 106/64 94 11/01/22 06:55 74 11/01/22 05:30 11/01/22 03:44 76 107/63 11/01/22 02:22 78 O2 Del Method 11/01/22 10:53 Room Air 11/01/22 07:28 Room Air 11/01/22 06:55 11/01/22 05:30 Room Air 11/01/22 03:44 11/01/22 02:22 Laboratory Results CBC notes hemoglobin 9.0, hematocrit 27.4, white count 10.9, and platelet count [id number]. Electrolytes note a sodium of 136, potassium 2.8, chloride 106, bicarb 25, BUN 5, creatinine 0.53, and glucose of 121. Magnesium level is low at 1.6. High sensitivity troponins 54.3. Diagnostic Findings EKG notes sinus rhythm with PACs and early transition of the precordial R-wave. There is nonspecific ST abnormality. PG Care Time/CCT Total # of Minutes Spent Total Time Spent with Patient: Total time spent is greater than 50% in coordination of care (as documented) at patient's floor/unit and/or counseling patient: Coding Level of Care Code 18570 Initial Inpt Care Lvl 3 Diagnoses Paroxysmal atrial fibrillation I48.0 PSVT (paroxysmal supraventricular tachycardia) I47.1 Coronary artery disease I25.10 HTN (hypertension) I10 Hyperlipidemia E78.5
--- NOTE | 2022-11-01 14:41 | Electrocardiogram Report ---
Test Reason : Blood Pressure : / mmHG Vent. Rate : 075 BPM Atrial Rate : 075 BPM P-R Int : 174 ms QRS Dur : 088 ms QT Int : 410 ms P-R-T Axes : 049 063 066 degrees QTc Int : 457 ms Sinus rhythm with Premature atrial complexes Nonspecific ST abnormality Abnormal ECG When compared with ECG of 31-OCT-2022 14:37, Sinus rhythm has replaced Atrial fibrillation Vent. rate has decreased BY [address] no longer depressed in Inferior leads T wave inversion no longer evident in Inferior leads T wave inversion no longer evident in Lateral leads Confirmed by Toi Sexton ([id number]) on 11/01/2022 2:40:20 PM Referred By: REFERRED SELF Confirmed By:Toi Sexton
[2022-11-01] MEDS: ATORVASTATIN 40 MG TAB PO SCH (20:51)
[2022-11-01] MEDS: traZODone HCL 50 MG TAB PO SCH (20:51)
[2022-11-01] MEDS: rOPINIRole HCL 0.25 MG TABLET PO SCH (20:52)
[2022-11-01] MEDS: MIRTAZAPINE TAB 15 MG TAB PO SCH (20:52)
--- NOTE | 2022-11-01 21:20 | Communication Note ---
Date of Service: November 01, 2022 Patient with hematochezia/diarrhea symptoms as per RN. No abdominal pain. AP LGIB Rule out C. difficile H&H now Stool C. difficile Hold aspirin and Eliquis. Will relay to AM provider.
[2022-11-01 21:46] LABS: Hematocrit (blood only) 27.4 % (34.1-44.9); Hemoglobin 8.8 g/dl (12.0-16.0)
[2022-11-02] MEDS: PIPERACILLIN/TAZOBACTAM 3.375 GM in DEXTROSE 5% 100 ML IV SCH ×2 (03:39→12:29)
[2022-11-02] MEDS: SODIUM CHLORIDE 0.9% 1000ML 1,000 ML IV SCH (06:30)
[2022-11-02] MEDS: ONDANSETRON INJ 2 MG/ML 2 ML VIAL IV PRN (06:34)
[2022-11-02] MEDS: ACETAMINOPHEN 325 MG TAB PO PRN (07:18)
[2022-11-02 07:51] LABS: Hematocrit (blood only) 27.4 % (34.1-44.9); Hemoglobin 8.8 g/dl (12.0-16.0); Mean Corpuscular Hemoglobin 29.6 pg (25.0-34.0); Mean Corpuscular Hgb Conc 32.1 g/dL (32.0-36.0); Mean Corpuscular Volume 92.3 fL (80.0-100.0); Mean Platelet Volume 9.4 fL (9.4-12.3); Platelet Count 365 K/uL (130-400); RDW Coefficient of Variation 14.6 % (11.5-14.5); RDW Standard Deviation 49.8 fL (36.4-46.3); Red Blood Count 2.97 M/uL (3.93-5.22); White Blood Count 11.51 K/ul (4.8-10.8)
[2022-11-02 08:17] LABS: BUN Creatinine Ratio 4.4 (10-20); Calcium 7.3 mg/dl (8.5-10.1); Creatinine Clr Calc Pharmacy 101.7 ml/min; Est GFR (Non-African American) 100.1 ml/min; Magnesium 1.9 mg/dl (1.7-2.4); Phosphorus 2.7 mg/dl (2.5-4.9); Potassium 3.3 mmol/L (3.5-5.1)
[2022-11-02] MEDS: PANTOprazole 40 MG in SYRINGE 0 ML IV SCH ×2 (09:28→21:02)
[2022-11-02] MEDS: MAGNESIUM OXIDE 400 MG TAB PO SCH (09:29)
[2022-11-02] MEDS: FERROUS SULFATE 325 MG TAB PO SCH (09:29)
[2022-11-02] MEDS: DULoxetine HCL 30 MG CAP PO SCH (09:29)
[2022-11-02] MEDS: CHOLECALCIFEROL 1,000 UNITS 25 MCG TAB PO SCH (09:29)
[2022-11-02] MEDS: NICOTINE 21 MG/24 HR TDSY TD SCH (09:29)
[2022-11-02] MEDS: CYANOCOBALAMIN (B-12) 500 MCG TABLET PO SCH (09:29)
[2022-11-02] MEDS: UMECLIDINIUM BROMIDE 62.5MCG/BLISTER 7 PUFFS/INHALER INH SCH (09:30)
[2022-11-02] MEDS: METOPROLOL SUCC 50MG EXT REL TAB PO SCH (09:30)
[2022-11-02] MEDS: FLUTICASONE FUROATE 200MCG 14 PUFFS/INHALER INH SCH (09:30)
[2022-11-02] MEDS: POTASSIUM CHLORIDE CRTAB 20 MEQ TABCR PO SCH ×2 (10:18→12:27)
--- NOTE | 2022-11-02 10:55 | Cardiology Progress Note ---
Date of Service November 02, 2022 Assessment & Plan (1) Paroxysmal atrial fibrillation: Plan: -spontaneously converted to sinus rhythm after admission. -continue metoprolol succinate and Eliquis. -no further workup necessary at this time. (2) PSVT (paroxysmal supraventricular tachycardia): Plan: -original diagnosis, October 17, 2022. 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 -broke easily with IV adenosine while in the emergency room. (3) Coronary artery disease: Plan: -CABG x2 in April 2010. -LCx THOMAS in January 2015. -quiescent on medical management. (4) HTN (hypertension): Plan: -adequate control on current regimen. (5) Hyperlipidemia: Plan: -continue atorvastatin. Admission and Anticipated Discharge Date Admission Date: October 31, 2022 Subjective The patient is resting comfortably in bed without complaints of chest pain, dyspnea, or palpitations. Physical Exam Physical Exam: In general is well-developed well-nourished white female no acute distress. HEENT exam is negative. Neck is supple with full carotid upstrokes. No carotid bruits. Jugular is pressure is flat at 90. There is no thyromegaly. Cardiovascular exam reveals a regular rhythm with a normal S1 and S2. Heart sounds are distant. No obvious murmurs. Lungs note distant breath sounds throughout but no rales, rhonchi, or wheezes. Abdomen is soft without bruits. Extremities reveal intact radial artery pulses bilaterally. There is no peripheral edema. Results & Data ([facility]) Vital Signs (Past 12 Hours) Vital Signs Temp Pulse Pulse Pulse Resp BP Pulse Ox 11/02/22 08:07 69 11/02/22 07:10 36.7 C 87 18 122/74 97 11/02/22 05:16 72 11/02/22 03:25 37.0 C 76 18 107/69 96 O2 Del Method 11/02/22 08:07 11/02/22 07:10 Room Air 11/02/22 05:16 11/02/22 03:25 Room Air Diagnostic Findings crystal grower notes sinus rhythm. No evidence of atrial fibrillation or an SVT. PG Care Time/CCT Total # of Minutes Spent Total Time Spent with Patient: Total time spent is greater than 50% in coordination of care (as documented) at patient's floor/unit and/or counseling patient: Coding Level of Care Code 57218 Subseq Hosp Care Lvl 3 Diagnoses Paroxysmal atrial fibrillation I48.0 PSVT (paroxysmal supraventricular tachycardia) I47.1 Coronary artery disease I25.10 HTN (hypertension) I10 Hyperlipidemia E78.5
--- NOTE | 2022-11-02 11:24 | Electrocardiogram Report ---
Test Reason : Blood Pressure : / mmHG Vent. Rate : 091 BPM Atrial Rate : 091 BPM P-R Int : 166 ms QRS Dur : 086 ms QT Int : 386 ms P-R-T Axes : 047 050 033 degrees QTc Int : 474 ms Sinus rhythm with Premature atrial complexes Nonspecific ST and T wave abnormality Abnormal ECG When compared with ECG of 01-NOV-2022 05:12, T wave inversion now evident in Anterior leads Confirmed by Toi Sexton ([id number]) on 11/02/2022 11:23:46 AM Referred By: REFERRED SELF Confirmed By:Toi Sexton
--- NOTE | 2022-11-02 13:43 | Hospitalist Progress Note ---
Date of Service November 02, 2022 Assessment & Plan (1) Atrial fibrillation with RVR: (2) Esophageal carcinoma: Plan 72-year-old lady with PMH of CAD status post CABG and status post stent, PAF on Eliquis, CM [EF 55 to 60% on TTE 2017], PVD, TIA, HTN, HLD, Williamson's esophagus, recent diagnosis of esophageal adenocarcinoma 09/03/22, prediabetes, chronic anemia [baseline hemoglobin 9-10], ongoing tobacco abuse presented to our ED 09/17 with complaint of SVT, Nausea and vomiting. Of note, during recent EGD/EUS attempt on Oct 17, she had SVT and procedure aborted. She was off of metoprolol for 2 days. She was in oncology office on the day of arrival where she vomited/nauseous and went in SVT; hence presented to ED. She is being managed for the following: Nausea/vomiting Recent diagnosis of esophageal carcinoma: follows dr De Leon and dr Ni Gastritis and esophagitis Lower GI bleed: BRBPR w/ stool 11/01, f/u [facility], holding aspirin and eliquis, await GI recs. Patient had episode of nausea and vomiting at oncology office on the day of arrival [see above] Diagnosed with esophageal adenocarcinoma 09/03/2022, was undergoing EGD/EUS on October 17 as part of onco w/u which was aborted due to SVT. Pt follows Dr. De Leon and Dr. Ni. Pt continues to smoke, pt has recurrent nausea and vomiting. Admitting CTAP: 1. The partially visualized distal esophagus/gastric pull-through is markedly thick walled and edematous. This could represent a severe gastritis/esophagitis or possibly a mass lesion. Clinical correlation will be required and endoscopy could be considered for further assessment. 2. There is a 12 mm focal outpouching of the distal esophagus/gastric pull- through versus necrotic paraesophageal lymph node. 3. Trace right pleural effusion with associated pleural thickening. This was also seen in 2016. 4. No acute infectious or inflammatory findings are identified in the abdomen or pelvis. For Nausea/vomiting: zofran as needed, slippery small freq meals, Pedialytes solution by bedside, c/w PPI, Full liq diet today, f/u GI recs. c/w IVF, monitor and replete electrolytes. Pt will need to maintain f/u w/ her OP oncology team. Dehydration/Concern for infection or sepsis POA: 2/2 to vomiting CALL BOX WIRER on the background of decreased appetite d/t underlying esophageal Ca. All three cell lines elevated at presentation, came down w/ iv hydration, Pt was started on Zosyn 10/31 for possible infection, procal neg 11/01, pt afebrile, will DC zosyn. UA wnl. CXR no acute process. Monitor off Atb. Blood culture +ve, likely contaminant:Positive blood culture /4 on 10/31 draw, repeated 11/01; serology positive for epidermidis, likely contaminant, WBC coming down, pt afebrile, follow clinically and repeat Bl Cx. Likely demand ischemia secondary to tachycardia SVT/ Afib RVR Pt presented w/ SVT, trop elevated, pt w/ no chest pain Likely demand ischemia, continue tele, pt has h/o orthostatic hypotension --> slow transition between position changes, pt aware. 09/18/2022 echo: EF 60 to 65%, grade 2 diastolic dysfunction. Moderate concentric LVH. c/w metoprolol. Cardio on board. Monitor and replete electrolytes. Eliquis on hold d/t LGIB, pt on sinus rhythm today. Other chronic medical conditions:CAD status post CABG/stent, PVD, PAF on Eliquis, CM, TIA, HTN, HLD, Williamson's esophagus, chronic anemia, prediabetes, ongoing tobacco abuse --->> continue with/resume home meds as and when able. DVT prophylaxis: Eliquis on hold, SCDs Full code Admission and Anticipated Discharge Date Admission Date: October 31, 2022 Subjective Patient seen and examined at bedside as a follow-up of supraventricular tachycardia and A. fib with RVR, nausea and vomiting on the background of recent diagnosis of esophageal carcinoma, possible sepsis. Patient was lying in bed, on room air, NAD, reports no further nausea and vomiting while in hospital, patient is on liquid diet, will do full liq diet today, will f/u GI recs, patient denies any chest pain or feeling of heart racing, patient denies any headache or dizziness, denies other review of symptoms. Pt reports having fresh blood in stool yesterday, no stool passed today by the time of bedside exam. Pt denies pain or feverish feeling. Physical Exam Physical Exam: GENERAL: Alert and oriented x3. NAD, on RA. Appears ill and frail. HEENT: No pallor, no icterus. Pupils equal, round and reactive to light. Oral mucosa moist. NECK: No JVD, no neck masses. HEART: S1 and S2 heard. regular rate and rhythm. No murmur, no gallop. RESPIRATORY SYSTEM: Normal AP diameter. No accessory muscle use. No wheezing, no crackles. ABDOMEN: Soft, bowel sounds present, nontender, no distention. CENTRAL NERVOUS SYSTEM: No facial droop. Speech is clear. Obeys simple commands. Moves extremities. EXTREMITIES: No edema, no erythema seen. Results & Data Results & Data ([facility]) Vital Signs (Past 12 Hours) Vital Signs Temp Pulse Pulse Pulse Resp BP Pulse Ox 11/02/22 12:01 36.6 C 90 14 130/78 97 11/02/22 08:07 69 11/02/22 07:10 36.7 C 87 18 122/74 97 11/02/22 05:16 72 11/02/22 03:25 37.0 C 76 18 107/69 96 O2 Del Method 11/02/22 12:01 Room Air 11/02/22 08:07 11/02/22 07:10 Room Air 11/02/22 05:16 11/02/22 03:25 Room Air
[2022-11-02 14:02] LABS: Hematocrit (blood only) 27.5 % (34.1-44.9); Hemoglobin 8.7 g/dl (12.0-16.0)
[2022-11-02] MEDS: ATORVASTATIN 40 MG TAB PO SCH (21:01)
[2022-11-02] MEDS: MIRTAZAPINE TAB 15 MG TAB PO SCH (21:02)
[2022-11-02] MEDS: rOPINIRole HCL 0.25 MG TABLET PO SCH (21:02)
[2022-11-02] MEDS: traZODone HCL 50 MG TAB PO SCH (21:08)
[2022-11-03 07:18] LABS: Hematocrit (blood only) 30.4 % (34.1-44.9); Hemoglobin 9.7 g/dl (12.0-16.0); Mean Corpuscular Hemoglobin 29.6 pg (25.0-34.0); Mean Corpuscular Hgb Conc 31.9 g/dL (32.0-36.0); Mean Corpuscular Volume 92.7 fL (80.0-100.0); Mean Platelet Volume 9.4 fL (9.4-12.3); Platelet Count 392 K/uL (130-400); RDW Coefficient of Variation 14.1 % (11.5-14.5); RDW Standard Deviation 48.4 fL (36.4-46.3); Red Blood Count 3.28 M/uL (3.93-5.22); White Blood Count 10.04 K/ul (4.8-10.8)
[2022-11-03 07:43] LABS: BUN Creatinine Ratio 7.5 (10-20); Calcium 7.8 mg/dl (8.5-10.1); Creatinine Clr Calc Pharmacy 114.4 ml/min; Est GFR (African American) 120.6 ml/min; Est GFR (Non-African American) 104.1 ml/min; Magnesium 1.9 mg/dl (1.7-2.4); Potassium 4.4 mmol/L (3.5-5.1)
[2022-11-03] MEDS: MAGNESIUM OXIDE 400 MG TAB PO SCH (09:08)
[2022-11-03] MEDS: PANTOprazole 40 MG in SYRINGE 0 ML IV SCH ×2 (09:08→21:02)
[2022-11-03] MEDS: DULoxetine HCL 30 MG CAP PO SCH (09:08)
[2022-11-03] MEDS: NICOTINE 21 MG/24 HR TDSY TD SCH (09:08)
[2022-11-03] MEDS: UMECLIDINIUM BROMIDE 62.5MCG/BLISTER 7 PUFFS/INHALER INH SCH ×2 (09:09→09:29)
[2022-11-03] MEDS: CHOLECALCIFEROL 1,000 UNITS 25 MCG TAB PO SCH (09:09)
[2022-11-03] MEDS: FERROUS SULFATE 325 MG TAB PO SCH (09:09)
[2022-11-03] MEDS: METOPROLOL SUCC 50MG EXT REL TAB PO SCH (09:09)
[2022-11-03] MEDS: CYANOCOBALAMIN (B-12) 500 MCG TABLET PO SCH (09:09)
[2022-11-03] MEDS: FLUTICASONE FUROATE 200MCG 14 PUFFS/INHALER INH SCH ×2 (09:10→09:29)
--- NOTE | 2022-11-03 12:23 | Cardiology Progress Note ---
Date of Service November 03, 2022 Assessment & Plan (1) Paroxysmal atrial fibrillation: Plan: -spontaneously converted to sinus rhythm after admission. -continue metoprolol succinate and Eliquis. -no further workup. (2) PSVT (paroxysmal supraventricular tachycardia): Plan: -original diagnosis, October 17, 2022. 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 -broke easily with IV adenosine while in the emergency room. -did have a brief episode on telemetry yesterday afternoon which broke spontaneously. (3) Coronary artery disease: Plan: -CABG x2 in April 2010. -LCx THOMAS in January 2015. -quiescent on medical management. (4) HTN (hypertension): Plan: -adequate control on current regimen. (5) Hyperlipidemia: Plan: -continue atorvastatin. Admission and Anticipated Discharge Date Admission Date: October 31, 2022 Subjective The patient is resting comfortably in bed without complaints of chest pain, dyspnea, or palpitations. Physical Exam Physical Exam: In general is well-developed well-nourished white female no acute distress. HEENT exam is negative. Neck is supple with full carotid upstrokes. No carotid bruits. Jugular is pressure is flat at 90. There is no thyromegaly. Cardiovascular exam reveals a regular rhythm with a normal S1 and S2. Heart sounds are distant. No obvious murmurs. Lungs note distant breath sounds throughout but no rales, rhonchi, or wheezes. Abdomen is soft without bruits. Extremities reveal intact radial artery pulses bilaterally. There is no peripheral edema. Results & Data ([facility]) Vital Signs (Past 12 Hours) Vital Signs Temp Pulse Pulse Resp BP Pulse Ox O2 Del Method 11/03/22 11:33 36.8 C 90 18 130/78 96 Room Air 11/03/22 07:52 36.6 C 79 77 20 131/76 96 Room Air 11/03/22 03:25 36.7 C 84 18 117/72 96 Room Air PG Care Time/CCT Total # of Minutes Spent Total Time Spent with Patient: Total time spent is greater than 50% in coordination of care (as documented) at patient's floor/unit and/or counseling patient: Coding Level of Care Code 06366 Subseq Hosp Care Lvl 3 Diagnoses Paroxysmal atrial fibrillation I48.0 PSVT (paroxysmal supraventricular tachycardia) I47.1 Coronary artery disease I25.10 HTN (hypertension) I10 Hyperlipidemia E78.5
--- NOTE | 2022-11-03 12:26 | Gastroenterology Progress Note ---
Date of Service November 03, 2022 Assessment & Plan (1) Esophageal carcinoma: (2) PSVT (paroxysmal supraventricular tachycardia): (3) Hematochezia: Plan IMPRESSION: This is a 72-year-old female with extensive cardiac history including recurrent PSVT, with known esophageal adenocarcinoma. Heart issues have interrupted her planned evaluation for her cancer. Heart rate is now controlled and pt feeling tired but otherwise at baseline. Had reported diarrhea and hematochezia over the weekend, that has not recurred over the last 2 days; HGB remains at baseline and pt HD stable. Unclear exact etiology for the hematochezia but suspect likely from esophageal cancer. C diff testing was neg. Last had colonoscopy in 2019 with several small polyps. - Continue IV Protonix therapy 40 mg b.i.d. - Liquid diet as tolerated - NPO at midnight - Hold Eliquis, any other AC - Will plan for EUS tomorrow to stage of her esophageal adenocarcinoma, so that she can proceed with chemoradiation as per her oncologist and radiation oncologist versus surgical intervention based on those findings. - Monitor and document GI output - Trend H&H, transfuse PRN Thank you for allowing us to participate in the care of this patient. Please call with any acute changes, questions or concerns. Please see addendum below with additional recommendation from my supervising physician. Admission and Anticipated Discharge Date Admission Date: October 31, 2022 Supervising Physician Co-Signing Physician Notes I performed a history and physical examination of the patient today, including specifically on physical exam - soft abdomen. I have discussed the patient's management with the advanced practitioner. Please refer to the nurse practitioner's note for the documented findings and plan of care. EUS tomorrow. Subjective Patient seen and examined, chart reviewed. Over the weekend she had hematochezia and diarrhea. C diff testing negative. No GI output in the las t2 days and HGB remains at baseline. She is HD Stable. Heart rate is controlled. States she feels tired, but denies any specific complaints. Tolerating her liquid diet. Denies abdominal pain, nausea vomiting, hematochezia, chest pain or shortness of breath, syncope or dizziness Review of Systems Review of Systems: All systems reviewed & are unremarkable except as noted in HPI & below Physical Exam Constitutional: WD/WN, vitals as above Chronically ill Eyes: PERRL, conjunctivae normal, anicteric sclerae Respiratory: normal respiratory effort, lungs clear to auscultation Cardiovascular: RRR, no murmur, no edema Gastrointestinal (Abdomen): normal bowel sounds, soft, nontender, no hepatosplenomegaly Skin: no rashes, warm and dry Psychiatric: A+Ox3, euthymic affect Results & Data ([facility]) Vital Signs (Past 12 Hours) Vital Signs Temp Pulse Pulse Resp BP Pulse Ox O2 Del Method 11/03/22 11:33 36.8 C 90 18 130/78 96 Room Air 11/03/22 07:52 36.6 C 79 77 20 131/76 96 Room Air 11/03/22 03:25 36.7 C 84 18 117/72 96 Room Air Laboratory Results 11/03/22 11/03/22 11/02/22 Range/Units 06:41 06:41 13:54 WBC 10.04 (4.8-10.8) K/ul RBC 3.28 L (3.93-5.22) M/uL Hgb 9.7 L 8.7 L (12.0-16.0) g/dl Hct 30.4 L 27.5 L (34.1-44.9) % MCV 92.7 (80.0-100.0) fL MCH 29.6 (25.0-34.0) pg MCHC 31.9 L (32.0-36.0) g/dL RDW Std Deviation 48.4 H (36.4-46.3) fL RDW Coeff of Cassi 14.1 (11.5-14.5) % Plt Count 392 (130-400) K/uL MPV 9.4 (9.4-12.3) fL Sodium 135 L (136-145) mmol/L Potassium 4.4 D (3.5-5.1) mmol/L Chloride 104 (98-107) mmol/L Carbon Dioxide 30 (21-32) mmol/L Anion Gap 1 L (3-11) BUN 3 L (6-23) mg/dl Creatinine 0.40 L (0.6-1.2) mg/dl Est Cr Clr Drug Dosing 114.4 ml/min Est GFR ( Amer) 120.6 ml/min Est GFR (Non-Af Amer) 104.1 ml/min BUN/Creatinine Ratio 7.5 L (10-20) Glucose 94 (70-99(Fasting)) mg/dl Calcium 7.8 L (8.5-10.1) mg/dl Phosphorus 3.0 (2.5-4.9) mg/dl Magnesium 1.9 (1.7-2.4) mg/dl SARS-CoV-2 IgG Ab Index (<1.00) index 10/31/22 Range/Units 14:20 WBC (4.8-10.8) K/ul RBC (3.93-5.22) M/uL Hgb (12.0-16.0) g/dl Hct (34.1-44.9) % MCV (80.0-100.0) fL MCH (25.0-34.0) pg MCHC (32.0-36.0) g/dL RDW Std Deviation (36.4-46.3) fL RDW Coeff of Cassi (11.5-14.5) % Plt Count (130-400) K/uL MPV (9.4-12.3) fL Sodium (136-145) mmol/L Potassium (3.5-5.1) mmol/L Chloride (98-107) mmol/L Carbon Dioxide (21-32) mmol/L Anion Gap (3-11) BUN (6-23) mg/dl Creatinine (0.6-1.2) mg/dl Est Cr Clr Drug Dosing ml/min Est GFR ( Amer) ml/min Est GFR (Non-Af Amer) ml/min BUN/Creatinine Ratio (10-20) Glucose (70-99(Fasting)) mg/dl Calcium (8.5-10.1) mg/dl Phosphorus (2.5-4.9) mg/dl Magnesium (1.7-2.4) mg/dl SARS-CoV-2 IgG Ab Index 1.21 H (<1.00) index
--- NOTE | 2022-11-03 14:57 | Hospitalist Progress Note ---
Date of Service November 03, 2022 Assessment & Plan (1) Atrial fibrillation with RVR: (2) Esophageal carcinoma: Plan 72-year-old lady with PMH of CAD status post CABG and status post stent, PAF on Eliquis, CM [EF 55 to 60% on TTE 2017], PVD, TIA, HTN, HLD, Williamson's esophagus, recent diagnosis of esophageal adenocarcinoma 09/03/22, prediabetes, chronic anemia [baseline hemoglobin 9-10], ongoing tobacco abuse presented to our ED 09/17 with complaint of SVT, Nausea and vomiting. Of note, during recent EGD/EUS attempt on Oct 17, she had SVT and procedure aborted. She was off of metoprolol for 2 days. She was in oncology office on the day of arrival where she vomited/nauseous and went in SVT; hence presented to ED. She is being managed for the following: Nausea/vomiting Recent diagnosis of esophageal carcinoma: follows dr De Leon and dr Ni Gastritis and esophagitis Lower GI bleed: BRBPR w/ stool 11/01, f/u [facility], holding aspirin and eliquis, await GI recs. Patient had episode of nausea and vomiting at oncology office on the day of arrival [see above] Diagnosed with esophageal adenocarcinoma 09/03/2022, was undergoing EGD/EUS on October 17 as part of onco w/u which was aborted due to SVT. Pt follows Dr. De Leon and Dr. Ni. Pt continues to smoke, pt has recurrent nausea and vomiting. Admitting CTAP: 1. The partially visualized distal esophagus/gastric pull-through is markedly thick walled and edematous. This could represent a severe gastritis/esophagitis or possibly a mass lesion. Clinical correlation will be required and endoscopy could be considered for further assessment. 2. There is a 12 mm focal outpouching of the distal esophagus/gastric pull- through versus necrotic paraesophageal lymph node. 3. Trace right pleural effusion with associated pleural thickening. This was also seen in 2016. 4. No acute infectious or inflammatory findings are identified in the abdomen or pelvis. For Nausea/vomiting: zofran as needed, slippery small freq meals, Pedialytes solution by bedside, c/w PPI, Full liq diet, d/w GI, EUS estephania, NPO midnight. Monitor and replete electrolytes. Continue to hold eliquis for EUS estephania. Pt will need to maintain f/u w/ her OP oncology team. 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 All three cell lines elevated at presentation, came down w/ iv hydration, Pt was started on Zosyn 10/31 for possible infection, procal neg 11/01, pt afebrile, zosyn DC'd. UA wnl. CXR no acute process. Monitor off Atb. Repeat Bl Cx [id number]. Blood culture +ve, likely contaminant:Positive blood culture / on 10/31 draw, repeated 11/01; serology positive for epidermidis, likely contaminant, WBC coming down, pt afebrile, follow clinically and repeat Bl Cx - no growth 48 hours. Likely demand ischemia secondary to tachycardia SVT/ Afib RVR Pt presented w/ SVT, trop elevated, pt w/ no chest pain Likely demand ischemia, continue tele, pt has h/o orthostatic hypotension --> slow transition between position changes, pt aware. 09/18/2022 echo: EF 60 to 65%, grade 2 diastolic dysfunction. Moderate concentric LVH. c/w metoprolol. Cardio on board. Monitor and replete electrolytes. Eliquis on hold d/t LGIB, pt on sinus rhythm today. Other chronic medical conditions:CAD status post CABG/stent, PVD, PAF on Eliquis, CM, TIA, HTN, HLD, Williamson's esophagus, chronic anemia, prediabetes, ongoing tobacco abuse --->> continue with/resume home meds as and when able. DVT prophylaxis: Eliquis on hold, SCDs Full code Admission and Anticipated Discharge Date Admission Date: October 31, 2022 Subjective Patient seen and examined at bedside as a follow-up of supraventricular tachyc ardia and A. fib with RVR, nausea and vomiting on the background of recent diagnosis of esophageal carcinoma, possible sepsis. Charts reviewed, labs reviewed. Patient was lying in bed, on room air, NAD, reports no further nausea and vomiting while in hospital, patient is on full liq diet today, d/w GI, NPO midnight for EUS estephania, patient denies any chest pain or feeling of heart racing, patient denies any headache or dizziness, denies other review of symptoms. Pt reports having fresh blood in stool 11/01 but no stool since 11/02. Pt denies pain or feverish feeling. Physical Exam Physical Exam: GENERAL: Alert and oriented x3. NAD, on RA. Appears ill and frail. HEENT: No pallor, no icterus. Pupils equal, round and reactive to light. Oral mucosa moist. NECK: No JVD, no neck masses. HEART: S1 and S2 heard. regular rate and rhythm. No murmur, no gallop. RESPIRATORY SYSTEM: Normal AP diameter. No accessory muscle use. No wheezing, no crackles. ABDOMEN: Soft, bowel sounds present, nontender, no distention. CENTRAL NERVOUS SYSTEM: No facial droop. Speech is clear. Obeys simple comma nds. Moves extremities. EXTREMITIES: No edema, no erythema seen. Results & Data Results & Data ([facility]) Vital Signs (Past 12 Hours) Vital Signs Temp Pulse Pulse Resp BP Pulse Ox O2 Del Method 11/03/22 11:33 36.8 C 90 18 130/78 96 Room Air 11/03/22 07:52 36.6 C 79 77 20 131/76 96 Room Air 11/03/22 03:25 36.7 C 84 18 117/72 96 Room Air
[2022-11-03] MEDS: MIRTAZAPINE TAB 15 MG TAB PO SCH (21:00)
[2022-11-03] MEDS: traZODone HCL 50 MG TAB PO SCH (21:00)
[2022-11-03] MEDS: ATORVASTATIN 40 MG TAB PO SCH (21:01)
[2022-11-03] MEDS: rOPINIRole HCL 0.25 MG TABLET PO SCH (21:01)
[2022-11-04 07:20] LABS: Hematocrit (blood only) 30.7 % (34.1-44.9); Mean Corpuscular Hemoglobin 29.6 pg (25.0-34.0); Mean Corpuscular Hgb Conc 32.6 g/dL (32.0-36.0); Mean Corpuscular Volume 90.8 fL (80.0-100.0); Mean Platelet Volume 9.3 fL (9.4-12.3); Platelet Count 412 K/uL (130-400); RDW Coefficient of Variation 14.6 % (11.5-14.5); RDW Standard Deviation 49.1 fL (36.4-46.3); Red Blood Count 3.38 M/uL (3.93-5.22); White Blood Count 9.54 K/ul (4.8-10.8)
[2022-11-04 07:51] LABS: BUN Creatinine Ratio 9.1 (10-20); Calcium 7.9 mg/dl (8.5-10.1); Est GFR (African American) 116.9 ml/min; Est GFR (Non-African American) 100.8 ml/min; Potassium 4.3 mmol/L (3.5-5.1)
[2022-11-04] MEDS: PANTOprazole 40 MG in SYRINGE 0 ML IV SCH ×2 (09:36→20:22)
[2022-11-04] MEDS: DULoxetine HCL 30 MG CAP PO SCH (09:36)
[2022-11-04] MEDS: METOPROLOL SUCC 50MG EXT REL TAB PO SCH (09:36)
[2022-11-04] MEDS: NICOTINE 21 MG/24 HR TDSY TD SCH (09:36)
[2022-11-04] MEDS: CHOLECALCIFEROL 1,000 UNITS 25 MCG TAB PO SCH (09:37)
[2022-11-04] MEDS: FERROUS SULFATE 325 MG TAB PO SCH (09:37)
[2022-11-04] MEDS: FLUTICASONE FUROATE 200MCG 14 PUFFS/INHALER INH SCH (09:37)
[2022-11-04] MEDS: UMECLIDINIUM BROMIDE 62.5MCG/BLISTER 7 PUFFS/INHALER INH SCH (09:37)
[2022-11-04] MEDS: MAGNESIUM OXIDE 400 MG TAB PO SCH (09:37)
[2022-11-04] MEDS: CYANOCOBALAMIN (B-12) 500 MCG TABLET PO SCH (09:37)
--- NOTE | 2022-11-04 12:06 | Cardiology Progress Note ---
Date of Service November 04, 2022 Assessment & Plan (1) Paroxysmal atrial fibrillation: Plan: -spontaneously converted to sinus rhythm soon after admission. -continue metoprolol succinate and Eliquis. -no further workup. (2) PSVT (paroxysmal supraventricular tachycardia): Plan: -original diagnosis, October 17, 2022. 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 -broke easily with IV adenosine while in the emergency room. (3) Coronary artery disease: Plan: -CABG x2 in April 2010. -LCx THOMAS in January 2015. -quiescent on medical management. (4) HTN (hypertension): Plan: -adequate control on current regimen. (5) Hyperlipidemia: Plan: -continue atorvastatin. Admission and Anticipated Discharge Date Admission Date: October 31, 2022 Subjective The patient is resting comfortably in bed without complaints of chest pain, dyspnea, or palpitations. Physical Exam Physical Exam: In general is well-developed well-nourished white female no acute distress. HEENT exam is negative. Neck is supple with full carotid upstrokes. No carotid bruits. No JVD. There is no thyromegaly. Cardiovascular exam reveals a regular rhythm with a normal S1 and S2. Heart sounds are distant. No obvious murmurs. Lungs note distant breath sounds throughout but no rales, rhonchi, or wheezes. Abdomen is soft without bruits. Extremities reveal intact radial artery pulses bilaterally. There is no peripheral edema. Results & Data ([facility]) Vital Signs (Past 12 Hours) Vital Signs Temp Pulse Resp BP Pulse Ox O2 Del Method 11/04/22 07:10 36.7 C 73 18 127/68 97 Room Air 11/04/22 03:14 36.5 C 87 20 113/76 96 Room Air Diagnostic Findings satellite project site monitor notes sinus rhythm without evidence of atrial fibrillation or an SVT. PG Care Time/CCT Total # of Minutes Spent Total Time Spent with Patient: Total time spent is greater than 50% in coordination of care (as documented) at patient's floor/unit and/or counseling patient: Coding Level of Care Code 59653 Subseq Hosp Care Lvl 3 Diagnoses Paroxysmal atrial fibrillation I48.0 PSVT (paroxysmal supraventricular tachycardia) I47.1 Coronary artery disease I25.10 HTN (hypertension) I10 Hyperlipidemia E78.5
--- NOTE | 2022-11-04 14:04 | History & Physical Bridge Note ---
Date of Service November 04, 2022 History & Physical Bridge Note I have examined the patient, reviewed the History & Physical and in the interval since the performance of the History & Physical I have noted the following changes of clinical significance: no changes noted EUS Patient was explained in detail regarding risks, benefits, limitations and alternatives of the above endoscopic procedure. Risks of intravenous sedation used for procedure were also explained. Risks include, but not limited to perforation, bleeding, infection, respiratory distress, cardiac arrest and . Patient is also aware about the possibility of missed lesion. Patient's questions were answered. The patient verbalized understanding the information and agreed to undergo the procedure.
--- NOTE | 2022-11-04 14:46 | Anesthesiology Consultation ---
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 Surgery Operation Date: 11/04/22 13:15 Proposed Procedures p Endoscopic Ultrasonography Upper - Rosangela Colbert MD Height/Weight Height: 5 ft 5 in Weight: 64.5 kg Allergies Allergy/AdvReac Type Severity Reaction Status Date / Time sumatriptan AdvReac Unknown advised to Verified 10/29/22 10:13 avoid d/t hx heart surgery varenicline AdvReac Unknown advised to Verified 10/29/22 10:13 avoid d/t hx heart surgery Medications Home Medications Medication Instructions Recorded Confirmed Last Taken atorvastatin 80 mg tablet 80 mg PO HS 03/22/19 10/31/22 10/16/22 19:30 duloxetine 30 mg capsule,delayed 30 mg PO QAM 03/22/19 10/31/22 10/16/22 07:00 release (Cymbalta) trazodone 150 mg tablet 150 mg PO HS 03/22/19 10/31/22 10/16/22 19:30 nitroglycerin 0.4 mg sublingual 0.4 mg sublingual UD PRN chest 06/24/19 10/31/22 Unknown tablet pain #1 tab apixaban 5 mg tablet (Eliquis) 5 mg PO AMHS 09/18/22 10/31/22 10/15/22 07:00 ondansetron 4 mg disintegrating 4 mg PO Q8H PRN nausea and 09/20/22 10/31/22 1 Week Ago tablet vomiting #60 tabs ~10/10/22 acetaminophen 500 mg tablet 500 mg PO Q4 PRN Pain 10/29/22 10/31/22 Unknown (Tylenol Extra Strength) albuterol sulfate 2.5 mg/3 mL 2.5 mg inhalation Q4H PRN 10/29/22 10/31/22 Unknown (0.083 %) solution for nebulization Abdominal Discomfort ferrous sulfate 325 mg (65 mg 325 mg PO DAILY 10/29/22 10/31/22 Unknown iron) tablet (FeroSul) fluticasone propionate 220 2 puff inhalation BID PRN as 10/29/22 10/31/22 Unknown mcg/actuation HFA aerosol inhaler directed (Flovent HFA) mecobalamin (vitamin B12) 1,000 1,000 mcg PO DAILY 10/29/22 10/31/22 Unknown mcg lozenges ropinirole 0.25 mg tablet 0.5 mg PO HS 10/29/22 10/31/22 Unknown tiotropium bromide 18 mcg capsule 1 cap inhalation DAILY PRN as 10/29/22 10/31/22 Unknown with inhalation device (Spiriva directed with HandiHaler) aspirin 81 mg chewable tablet 81 mg PO DAILY 10/30/22 10/31/22 Unknown cholecalciferol (vitamin D3) 25 25 mcg PO DAILY 10/30/22 10/31/22 Unknown mcg (1,000 unit) capsule prochlorperazine maleate 5 mg 5 mg PO TID PRN nausea and 10/30/22 10/31/22 Unknown tablet (Compazine) vomiting #30 tabs albuterol sulfate 90 mcg/actuation 2 puff inhalation Q4 PRN Wheezing 10/31/22 10/31/22 Unknown aerosol inhaler magnesium oxide 400 mg PO DAILY 10/31/22 10/31/22 Unknown metoprolol succinate 50 mg 50 mg PO DAILY 10/31/22 10/31/22 Unknown tablet,extended release 24 hr mirtazapine 15 mg tablet 15 mg PO HS 10/31/22 10/31/22 Unknown omeprazole 40 mg capsule,delayed 40 mg PO DAILYBB 10/31/22 10/31/22 Unknown release Active Medications Generic Name Dose Route Start Last Admin Trade Name Freq PRN Reason Stop Dose Admin Acetaminophen 650 mg 10/31/22 20:24 11/02/22 07:18 Acetaminophen 325 Mg Tab PO 11/30/22 20:23 650 mg Q4H PRN Administration Pain or Fever Apixaban 5 mg 10/31/22 21:00 11/01/22 20:52 Apixaban 5 Mg Tablet PO 11/30/22 20:59 5 mg AMHS ANDREY Administration Aspirin 81 mg 11/01/22 09:00 11/01/22 08:16 Aspirin 81 Mg Ectab PO 12/01/22 08:59 81 mg DAILY ANDREY Administration Atorvastatin Calcium 80 mg 10/31/22 21:00 11/03/22 21:01 Atorvastatin 40 Mg Tab PO 11/30/22 20:59 80 mg HS ANDREY Administration Cyanocobalamin 1,000 mcg 11/01/22 09:00 11/04/22 09:37 Cyanocobalamin (B-12) 500 Mcg Tablet PO 12/01/22 08:59 1,000 mcg DAILY ANDREY Administration Duloxetine HCl 30 mg 11/01/22 09:00 11/04/22 09:36 Duloxetine Hcl 30 Mg Cap PO 12/01/22 08:59 30 mg QAM ANDREY Administration Ferrous Sulfate 325 mg 11/01/22 09:00 11/04/22 09:37 Ferrous Sulfate 325 Mg Tab PO 12/01/22 08:59 325 mg DAILY ANDREY Administration Fluticasone Furoate 1 puffs 11/01/22 09:00 11/04/22 09:37 Fluticasone Furoate 200mcg 14 Puffs/Inhaler INH 12/01/22 08:59 Not Given DAILY ANDREY Pantoprazole Sodium 40 mg/ 10 mls @ 5 mls/min 10/31/22 21:00 11/04/22 09:36 Syringe IV 11/30/22 20:59 5 mls/min BID ANDREY Administration Magnesium Oxide 400 mg 11/01/22 09:00 11/04/22 09:37 Magnesium Oxide 400 Mg Tab PO 12/01/22 08:59 400 mg DAILY ANDREY Administration Metoprolol Succinate 50 mg 11/01/22 09:00 11/04/22 09:36 Metoprolol Succ 50mg Ext Rel Tab PO 12/01/22 08:59 50 mg DAILY ANDREY Administration Mirtazapine 15 mg 10/31/22 21:00 11/03/22 21:00 Mirtazapine Tab 15 Mg Tab PO 11/30/22 20:59 15 mg HS ANDREY Administration Miscellaneous 1 each 11/01/22 08:59 11/04/22 09:37 Remove Nicoderm Patch N/A 12/01/22 08:58 1 each DAILY@0859 ANDREY Administration Nicotine 21 mg 10/31/22 20:55 11/04/22 09:36 Nicotine 21 Mg/24 Hr Tdsy TD 11/30/22 20:54 21 mg DAILY ANDREY Administration Ondansetron HCl 4 mg 10/31/22 20:24 11/02/22 06:34 Ondansetron Inj 2 Mg/Ml 2 Ml Vial IV 11/30/22 20:23 4 mg Q6H PRN Administration Nausea Prochlorperazine 5 mg 10/31/22 20:24 11/01/22 09:56 Prochlorperazine Maleate 5 Mg Tab PO 11/30/22 20:23 5 mg TID PRN Administration nausea and vomiting Ropinirole HCl 0.5 mg 10/31/22 21:00 11/03/22 21:01 Ropinirole Hcl 0.25 Mg Tablet PO 11/30/22 20:59 0.5 mg HS ANDREY Administration Trazodone HCl 150 mg 10/31/22 21:00 11/03/22 21:00 Trazodone Hcl 50 Mg Tab PO 11/30/22 20:59 150 mg HS ANDREY Administration Umeclidinium [place] 1 puffs 11/01/22 09:00 11/04/22 09:37 Umeclidinium [place] 62.5mcg/Blister 7 Puffs/Inhaler INH 12/01/22 08:59 Not Given DAILY ANDREY Vitamin D 1,000 units 11/01/22 09:00 11/04/22 09:37 Cholecalciferol 1,000 Units 25 Mcg Tab PO 12/01/22 08:59 1,000 units DAILY ANDREY Administration NPO Date Last Intake of Fluids: 11/03/22 Time Last Intake of Fluids: 17:00 Date Last Intake of Solids: 11/03/22 Time Last Intake of Solids: 17:00 Past Medical History Medical History Anxiety Barretts esophagus Chronic obstructive pulmonary disease CKD (chronic kidney disease), stage III Coronary artery disease CABG x 2 (2009) cardiac stent x 1 (2014 - LCx) Degenerative disc disease Depression Esophageal cancer Ganglion cyst Surgery on both wrists for this GERD (gastroesophageal reflux disease) controlled Hyperlipidemia Hypertension Learning disability cannot spell/limited reading skills Migraine "haven't had one in awhile" Myocardial Infarction "silent" NM- remote/several years ago Osteoarthritis PAD (peripheral artery disease) <50% aorta-iliac system stenosis per 09/26/19 duplex Paroxysmal atrial fibrillation Peripheral neuropathy LLE Port-A-Cath in place PVD (peripheral vascular disease) Stroke "silent" stroke noted incidentally on imaging several years ago, no residual issues Past Family History Family History Father , 73yo Myocardial infarction Mother , in her 80s Breast cancer Myocardial infarction Brother Natural with unknown cause Brother Natural with unknown cause Brother No problems noted. Brother No problems noted. Sister Breast cancer Sister No problems noted. Sister No problems noted. Sister No problems noted. Son No problems noted. Daughter No problems noted. Daughter No problems noted. Daughter No problems noted. Past Surgical History Surgical History Fusion of spine LUMBAR ACDF C5-C7: 10/30/17: Grade view 1, MAC#3, ETT 7.0 at [facility] H/O esophagogastroduodenoscopy H/O shoulder surgery Left H/O sinus surgery History of bilateral tubal ligation History of cardiac cath CABG x 2 (2009); Donna; f/u dr kemp, md cardiac stent x 1 (2015 - LCx); [facility] History of carpal tunnel surgery History of cholecystectomy History of colonoscopy History of esophagogastroduodenoscopy (EGD) History of Lauren fundoplication History of surgery Reconstruction of pyloris History of surgery Paraesophageal hernia repair with mesh in 2017 History of tonsillectomy History of tooth extraction History of total abdominal hysterectomy and bilateral salpingo-oophorectomy History of total hip arthroplasty LEFT History of total knee replacement RT/LEFT Removal of knee prosthesis Social History Smoking Status: Current some day smoker tobacco type: cigarettes Smoking cigarettes per day: 1 Do You Dip or Chew Tobacco: No Hx Alcohol Use: No Alcohol type: beer alcohol intake frequency: holidays/special occasions only Hx Substance Use: No substance use type: does not use Physical Exam Vital Signs Last Vital Signs Temp 98.2 F 11/04/22 13:47 Pulse 92 H 11/04/22 13:47 Resp 16 11/04/22 13:47 BP 121/70 11/04/22 13:47 Pulse Ox 95 11/04/22 13:47 O2 Del Method 11/04/22 13:47 Testing Laboratory Results 11/04/22 06:48 11/04/22 06:48 PT 12.6 Seconds (9.0-12.0) H 10/31/22 14:20 INR 1.2 (0.9-1.1) H 10/31/22 14:20 APTT 34.2 Seconds (21.0-31.0) H 10/31/22 14:20 Hemoglobin A1c 5.4 % (4.5-5.6) 11/01/22 05:32 Urine Color Yellow 10/31/22 19:30 Urine Appearance Clear (Clear) 10/31/22 19:30 Urine pH 6.0 (4.5-7.5) 10/31/22 19:30 Ur Specific Jamul 1.044 (1.000-1.030) H 10/31/22 19:30 Urine Protein Negative (Negative) 10/31/22 19:30 Urine Glucose (UA) Negative (Negative) 10/31/22 19:30 Urine Ketones Negative (Negative) 10/31/22 19:30 Urine Nitrite Negative (Negative) 10/31/22 19:30 Ur Leukocyte Esterase Negative (Negative) 10/31/22 19:30 Blood Type O Positive 11/01/22 21:28 Antibody Screen NEGATIVE 11/01/22 21:28 10/31/22 15:29 Aerobic Blood Culture - Final Blood Coag neg staph not lugdunensis Anaerobic Blood Culture - Final Coag neg staph not lugdunensis 11/01/22 11:28 Aerobic Blood Culture - Preliminary Blood No growth in Aerobic bottle after 48 hours. Anaerobic Blood Culture - Final 11/01/22 11:27 Aerobic Blood Culture - Preliminary Blood No growth in Aerobic bottle after 48 hours. Anaerobic Blood Culture - Preliminary No growth in Anaerobic bottle after 48 hours. 10/31/22 15:29 Aerobic Blood Culture - Preliminary Blood No growth in Aerobic bottle after 48 hours. Anaerobic Blood Culture - Final Electrocardiogram Date: 11/02/22 Sinus rhythm with Premature atrial complexes, rate [address] and T wave abnormality Abnormal ECG When compared with ECG of 01-NOV-2022 05:12, T wave inversion now evident in Anterior leads Confirmed by Toi Sexton ([id number]) on 11/02/2022 11:23:46 AM Chest X-Ray Date: 10/31/22 IMPRESSION: 1. Small pleural effusions, right larger than left with bibasilar scarring/atelectasis. 2. Emphysema. Echocardiogram Date: 09/18/22 Compared with 02/20/15 study, some progression of LVH, otherwise no significant change. LV systolic function is normal. EF 60-65% Moderate concentric LVH Diastolic dysfunction, grade 2, consistent with elevated LA pressure RV is normal in size and function No significant valvular disease
[2022-11-04] MEDS ORDERED: ATROPINE SULFATE 0.1 MG/ML 10ML SYR IV PRN (14:56)
[2022-11-04] MEDS ORDERED: ONDANSETRON INJ 2 MG/ML 2 ML VIAL IV PRN (14:56)
[2022-11-04] MEDS ORDERED: ePHEDrine sulfate 50 MG/ML AMP IV PRN (14:56)
[2022-11-04] MEDS ORDERED: fentaNYL citrate 100 MCG/2 ML VIAL IV PRN (14:56)
[2022-11-04] MEDS ORDERED: PROPOFOL IV EMULSION 10 MG/ML 20 ML VIAL IV ONE (15:18)
[2022-11-04] MEDS ORDERED: fentaNYL citrate 100 MCG/2 ML VIAL ONE (15:18)
[2022-11-04] MEDS ORDERED: LIDOCAINE 2% MPF LOCAL 5 ML VIAL INFIL ONE (15:18)
--- NOTE | 2022-11-04 16:21 | Hospitalist Progress Note ---
Date of Service November 04, 2022 Assessment & Plan (1) Atrial fibrillation with RVR: (2) Esophageal carcinoma: Plan 72-year-old lady with PMH of CAD status post CABG and status post stent, PAF on Eliquis, CM [EF 55 to 60% on TTE 2017], PVD, TIA, HTN, HLD, Williamson's esophagus, recent diagnosis of esophageal adenocarcinoma 09/03/22, prediabetes, chronic anemia [baseline hemoglobin 9-10], ongoing tobacco abuse presented to our ED 09/17 with complaint of SVT, Nausea and vomiting. Of note, during recent EGD/EUS attempt on Oct 17, she had SVT and procedure aborted. She was off of metoprolol for 2 days. She was in oncology office on the day of arrival where she vomited/nauseous and went in SVT; hence presented to ED. She is being managed for the following: Nausea/vomiting Recent diagnosis of esophageal carcinoma: follows dr De Leon and dr Ni; consul t radiation oncology. Gastritis and esophagitis Lower GI bleed: BRBPR w/ stool 11/01, f/u [facility], holding aspirin and eliquis, await GI recs. Patient had episode of nausea and vomiting at oncology office on the day of arrival [see above] Diagnosed with esophageal adenocarcinoma 09/03/2022, was undergoing EGD/EUS on October 17 as part of onco w/u which was aborted due to SVT. Pt follows Dr. De Leon and Dr. Ni. Pt continues to smoke, pt has recurrent nausea and vomiting. Admitting CTAP: 1. The partially visualized distal esophagus/gastric pull-through is markedly thick walled and edematous. This could represent a severe gastritis/esophagitis or possibly a mass lesion. Clinical correlation will be required and endoscopy could be considered for further assessment. 2. There is a 12 mm focal outpouching of the distal esophagus/gastric pull- through versus necrotic paraesophageal lymph node. 3. Trace right pleural effusion with associated pleural thickening. This was also seen in 2016. 4. No acute infectious or inflammatory findings are identified in the abdomen or pelvis. For Nausea/vomiting: zofran as needed, slippery small freq meals, Pedialytes solution by bedside, c/w PPI, N.p.o., for EUS today, resume diet with GI clearance. Monitor and replete electrolytes. Continue to hold eliquis for EUS. Resume when cleared per GI. Pt will need to maintain f/u w/ her OP oncology team. 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 All three cell lines elevated at presentation, came down w/ iv hydration, Pt was started on Zosyn 10/31 for possible infection, procal neg 11/01, pt afebrile, zosyn DC'd. UA wnl. CXR no acute process. Monitor off Atb. Repeat Bl Cx NG48H. Blood culture +ve, likely contaminant:Positive blood culture / on 10/31 draw, repeated 11/01; serology positive for epidermidis, likely contaminant, WBC coming down, pt afebrile, follow clinically and repeat Bl Cx - no growth 48 hours. Likely demand ischemia secondary to tachycardia SVT/ Afib RVR Pt presented w/ SVT, trop elevated, pt w/ no chest pain Likely demand ischemia, continue tele, pt has h/o orthostatic hypotension --> slow transition between position changes, pt aware. 09/18/2022 echo: EF 60 to 65%, grade 2 diastolic dysfunction. Moderate concentric LVH. c/w metoprolol. Cardio on board. Monitor and replete electrolytes. Eliquis on hold d/t LGIB, pt on sinus rhythm. Other chronic medical conditions:CAD status post CABG/stent, PVD, PAF on Eliquis, CM, TIA, HTN, HLD, Williamson's esophagus, chronic anemia, prediabetes, ongoing tobacco abuse --->> continue with/resume home meds as and when able. DVT prophylaxis: Eliquis on hold, SCDs. Resume with GI clearance. Full code Admission and Anticipated Discharge Date Admission Date: October 31, 2022 Subjective Patient seen and examined at bedside as a follow-up of supraventricular tachycardia and A. fib with RVR, nausea and vomiting on the background of recent diagnosis of esophageal carcinoma, possible sepsis. Charts reviewed, labs reviewed. Patient was lying in bed, on room air, NAD, reports no further nausea and vomiting while in hospital, patient is NPO today for EUS, diet to be resumed w/ GI clearance after the procedure. Patient denies any chest pain or feeling of heart racing, patient denies any headache or dizziness, denies other review of symptoms. Pt reports having fresh blood in stool 11/01 but no stool since 11/02. Pt denies pain or feverish feeling. Physical Exam Physical Exam: GENERAL: Alert and oriented x3. NAD, on RA. Appears ill and frail. HEENT: No pallor, no icterus. Pupils equal, round and reactive to light. Oral mucosa moist. NECK: No JVD, no neck masses. HEART: S1 and S2 heard. regular rate and rhythm. No murmur, no gallop. RESPIRATORY SYSTEM: Normal AP diameter. No accessory muscle use. No wheezing, no crackles. ABDOMEN: Soft, bowel sounds present, nontender, no distention. CENTRAL NERVOUS SYSTEM: No facial droop. Speech is clear. Obeys simple commands. Moves extremities. EXTREMITIES: No edema, no erythema seen. Results & Data Results & Data ([facility]) Vital Signs (Past 12 Hours) Vital Signs Temp Pulse Pulse Resp BP Pulse Ox O2 Del Method 11/04/22 13:47 36.8 C 92 H 16 121/70 95 Room Air 11/04/22 12:16 36.7 C 90 18 138/80 98 Room Air 11/04/22 07:10 36.7 C 73 18 127/68 97 Room Air
--- NOTE | 2022-11-04 16:46 | Operative Report ---
Post Operative Report Pre & Post Diagnosis Operation Date: 11/04/22 13:15 <No data on this case meets the specified criteria> I identified the patient and participated in the time-out.: Yes Procedure Operation Date: 11/04/22 13:15 Actual Procedures p Endoscopic Ultrasonography Upper - Rosangela Colbert MD Surgeon Rosangela Colbert MD Insurance Specialist None Estimated Blood Loss 0 Findings See Below (Esophageal mass staged at T3 N0) Specimens None Description of Procedure EUS I attest to the content of the Intraoperative Record and any orders documented therein. Any exceptions are noted below.
--- NOTE | 2022-11-04 17:00 | Anesthesiology Progress Note ---
Date of Service November 04, 2022 Anesthesia Post Procedure Vital Signs Vital Signs: Temp Pulse Pulse Pulse Resp BP Pulse Ox 11/04/22 13:47 36.8 C 92 H 16 121/70 95 11/04/22 12:16 36.7 C 90 18 138/80 98 11/04/22 07:10 36.7 C 73 18 127/68 97 11/04/22 03:14 36.5 C 87 20 113/76 96 11/03/22 22:08 69 11/03/22 22:59 36.6 C 99 H 18 145/86 H 96 11/03/22 20:00 11/03/22 19:00 36.9 C 70 16 132/64 95 Pulse Ox O2 Del Method O2 Del Method 11/04/22 13:47 Room Air 11/04/22 12:16 Room Air 11/04/22 07:10 Room Air 11/04/22 03:14 Room Air 11/03/22 22:08 11/03/22 22:59 Room Air 11/03/22 20:00 95 Room Air 11/03/22 19:00 Room Air Transfer of Care Handoff Completed per policy Notes Mental Status: alert / awake / arousable Patient Amnestic to Procedure: Yes Nausea / Vomiting: adequately controlled Pain: adequately controlled Airway Patency, RR, SpO2: stable & adequate BP & HR: stable & adequate Hydration State: stable & adequate Anesthetic Complications: no major complications apparent
--- NOTE | 2022-11-04 17:02 | GI REPORT ---
Patient Name: Laury Olivares Procedure Date: 11/04/2022 4:14 PM Date of : 1950 Admit Type: Inpatient Age: 72 Gender: Female Attending MD: Rosangela Colbert MD, Procedure: Upper EUS Providers: Rosangela Colbert MD Referring MD: Gerard Cole Md Indications: Staging of esophageal adenocarcinoma Medicines: Propofol per Anesthesia Complications: No immediate complications. Estimated Blood Loss: Estimated blood loss: none. Procedure: Pre-Anesthesia Assessment: - Prior to the procedure, a History and Physical was performed, and patient medications, allergies and sensitivities were reviewed. The patient's tolerance of previous anesthesia was reviewed. - The risks and benefits of the procedure and the sedation options and risks were discussed with the patient. All questions were answered and informed consent was obtained. - Patient identification and proposed procedure were verified prior to the procedure by the physician and the nurse. The procedure was verified in the procedure room. - Pre-procedure physical examination revealed no contraindications to sedation. After obtaining informed consent, the endoscope was passed under direct vision. Throughout the procedure, the patient's blood pressure, pulse, and oxygen saturations were monitored continuously. The Endosonoscope was introduced through the mouth, and advanced to the second part of duodenum. The Colonoscope was introduced through the mouth, and advanced to the second part of duodenum. The upper EUS was accomplished without difficulty. The patient tolerated the procedure well. Findings: ENDOSONOGRAPHIC FINDING: : A hypoechoic mass was found in the lower third of the esophagus. The mass was encountered at 30 cm from the incisors and extended to 38 cm. The lesion was circumferential. The endosonographic borders were well-defined. There was sonographic evidence suggesting invasion into the adventitia (Layer 5). Impression: - Distal esophageal circumferential malignancy staged T3 N0 Mx by endosonographic criteria. Recommendation: - Return patient to [facility] for ongoing care. - Full liquid diet. - If the patient is not tolerating PO diet then I highly recommend esophageal stenting prior to discharge, otherwise if she is able to tolerate soft diet and maintain her nutrition then no need for stenting. - Patient is very high risk for massive upper GI bleeding if she is uses anticoagulation due to ongoing blood oozing of the large esophageal cancer. Please discuss this with Cardiology. - Follow up with Oncology to start treatment. Rosangela Colbert MD 11/04/2022 5:02:34 PM This report has been signed electronically. Note Initiated On: 11/04/2022 4:14 PM Number of Addenda: 0 I attest to the content of the Intraoperative Record and orders documented therein, exceptions below {[id number]}
[2022-11-04] MEDS: rOPINIRole HCL 0.25 MG TABLET PO SCH (20:22)
[2022-11-04] MEDS: MIRTAZAPINE TAB 15 MG TAB PO SCH (20:22)
[2022-11-04] MEDS: ATORVASTATIN 40 MG TAB PO SCH (20:22)
[2022-11-04] MEDS: traZODone HCL 50 MG TAB PO SCH (20:23)
[2022-11-05 06:21] LABS: Hemoglobin 9.7 g/dl (12.0-16.0); Mean Corpuscular Hemoglobin 29.8 pg (25.0-34.0); Mean Corpuscular Hgb Conc 32.3 g/dL (32.0-36.0); Mean Corpuscular Volume 92.3 fL (80.0-100.0); Mean Platelet Volume 9.5 fL (9.4-12.3); Platelet Count 368 K/uL (130-400); RDW Coefficient of Variation 14.6 % (11.5-14.5); RDW Standard Deviation 49.6 fL (36.4-46.3); Red Blood Count 3.25 M/uL (3.93-5.22); White Blood Count 8.88 K/ul (4.8-10.8)
[2022-11-05 07:18] LABS: BUN Creatinine Ratio 14.3 (10-20); Calcium 7.9 mg/dl (8.5-10.1); Creatinine Clr Calc Pharmacy 108.9 ml/min; Est GFR (African American) 118.7 ml/min; Est GFR (Non-African American) 102.4 ml/min; Magnesium 1.8 mg/dl (1.7-2.4); Phosphorus 4.3 mg/dl (2.5-4.9); Potassium 4.3 mmol/L (3.5-5.1)
--- NOTE | 2022-11-05 08:15 | Radiation OncologyConsultation ---
Date of Consultation November 05, 2022 Assessment & Plan (1) Esophageal carcinoma: This is a 72-year-old female with known adenocarcinoma of the esophagus. She has a long history of Williamson's esophagus. She developed difficulty with swallowing and had upper GI endoscopy with biopsies which revealed an adenoca rcinoma. The tumor extends from the mid esophagus to the GE junction. She was seen in medical oncology by Dr. Alexi De Leon. She was referred to our office to discuss radiation therapy. Plan is for combined radiation and chemotherapy. She had previously been scheduled for an upper EUS that was canceled due to the episode of tachycardia/atrial fibrillation. She presented to our office on 10/31/[address]. She was unfortunately feeling poorly. She had nausea and vomiting with irregular heartbeat. She was sent to the emergency room and found to have atrial fibrillation with rapid ventricular response. This did convert spontaneously after admission. She was able to undergo her upper EUS yesterday. This was found to be a uT3N0 tumor. This is in keeping with the findings of the PET/CT. CTs were done on 10/31/2022. Abnormalities seen or due to the tumor. She has not undergone surgery. She was seen today and is still quite lethargic from undergoing her procedure yesterday. We will plan to revisit her again tomorrow. We have tentatively scheduled her for a CT simulation tomorrow if she is in agreement. Supervising Physician Co-Signing Physician Notes I agree with the note documented by mid-level provider. I agree with recommendations and plan as above. History of Present Illness Reason for Consultation: To discuss CT simulation. Requesting Physician: Dr. Cole Attending Physician: Gerard Cole MD History of Present Illness Ms. Olivares is a 72-year-old female with a history of Williamson's esophagus. Patient developed progressive dysphagia and an upper GI was recommended. 09/03/2022. Upper GI endoscopy. Finding of tumor from gastroesophageal junction to mid esophagus. This was a large fungating mass with bleeding extending from the GE junction to the midesophagus. The mass was not obstructing. Biopsy reveals poorly differentiated carcinoma consistent with adenocarcinoma of the esophagus. HER2 FISH was performed with no evidence of HER2 amplification. Case #: [id number]. 09/17/2022. Admission to [facility] syncopal episode. CT chest, abdomen and pelvis. No thoracic aortic aneurysm. No central pulmonary embolism. Few groundglass and reticular opacities in the right upper lobe. Few nodular densities in the lungs with low suspicion. Nondependent mild right pleural thickening, likely related to remote insult. Marked fusiform mural thickening of the lower esophagus consistent with the reported history of esophageal carcinoma. 09/17/2022. Head CT without contrast. No acute intracranial abnormality. Chronic lacunar infarcts bilateral cerebellar hemispheres. 09/18/2022. Patient transferred to [facility]. 09/18/2022. Brain MRI. No acute infarct or intracranial hemorrhage. No evidence of intracranial metastasis. Few punctate old lacunar infarcts in the cerebellar hemispheres. 09/19/2022. Patient is seen by Juliane Alford for repeated syncopal episodes. Recommendations on medication changes and activity changes were made for the patient to minimize risk of repeated syncopal episodes. 09/26/2022. Medical oncology evaluation. Dr. Alexi De Leon. Recommendation for PET/CT and upper EUS. Recommendation for combined radiation and chemotherapy. 10/07/2022. Second opinion Dr. Milan at [facility]. 10/17/2022. Patient was scheduled for an EUS unfortunately she had an elevated heart rate and this procedure was canceled. It has yet to be appropriately rescheduled. 10/29/2022. Patient seen in radiation oncology for evaluation and discussion of treatment options for her newly diagnosed esophageal cancer. 10/30/2022. PET/CT. FDG avid circumferential thickening of the distal esophagu s, compatible with biopsy-proven esophageal adenocarcinoma. Upstream esophageal dilatation with air-fluid levels, likely representing partial obstruction. No evidence of FDG avid metastatic disease. 10/31/2022. Patient presented to radiation oncology for her CT simulation. She unfortunately was feeling poorly. She had nausea and vomiting. She was having an irregular heartbeat and palpitations. She was taken to the emergency room admitted. She was found to have atrial fibrillation with rapid ventricular response. She was admitted. She did spontaneously convert following admission. She had been scheduled to have an upper EUS. This previously was canceled due to again an episode of atrial fibrillation. 10/31/2022. CT of abdomen and pelvis. Partially visualized distal esophagus/g astric pull-through is markedly thick walled and edematous. This could represent a severe gastritis, esophagitis or possibly a mass lesion. Clinical correlation is required. 12 mm focal outpouching of the distal esophagus/gastric pull-through versus necrotic paraesophageal lymph node. 10/31/2022. Chest CT. No pulmonary embolism. Findings similar to abdominal CT. 11/04/2022. Upper EUS. Stage T3N0. 11/05/2022. Patient is seen in consultation by radiation oncology. She is very lethargic this morning in reviewing her records she had been returned to her room following the EUS fairly late in the evening. She was feeling well and had no complaints. She had not had any nausea or vomiting over the evening hours. We discussed briefly rescheduling of the CT simulation. She is very lethargic this morning. I will review this again with her tomorrow morning. We will hope to tentatively plan the CT simulation for tomorrow morning. Allergies Allergy/AdvReac Type Severity Reaction Status Date / Time sumatriptan AdvReac Unknown advised to Verified 10/29/22 10:13 avoid d/t hx heart surgery varenicline AdvReac Unknown advised to Verified 10/29/22 10:13 avoid d/t hx heart surgery Home Medications Medication Instructions Recorded Confirmed Type atorvastatin 80 mg tablet 80 mg PO HS 03/22/19 10/31/22 History duloxetine 30 mg capsule,delayed 30 mg PO QAM 03/22/19 10/31/22 History release (Cymbalta) trazodone 150 mg tablet 150 mg PO HS 03/22/19 10/31/22 History nitroglycerin 0.4 mg sublingual 0.4 mg sublingual UD PRN chest 06/24/19 10/31/22 History tablet pain #1 tab ondansetron 4 mg disintegrating 4 mg PO Q8H PRN nausea and 09/20/22 10/31/22 Rx tablet vomiting #60 tabs acetaminophen 500 mg tablet 500 mg PO Q4 PRN Pain 10/29/22 10/31/22 History (Tylenol Extra Strength) albuterol sulfate 2.5 mg/3 mL 2.5 mg inhalation Q4H PRN 10/29/22 10/31/22 History (0.083 %) solution for nebulization Abdominal Discomfort ferrous sulfate 325 mg (65 mg 325 mg PO DAILY 10/29/22 10/31/22 History iron) tablet (FeroSul) fluticasone propionate 220 2 puff inhalation BID PRN as 10/29/22 10/31/22 History mcg/actuation HFA aerosol inhaler directed (Flovent HFA) mecobalamin (vitamin B12) 1,000 1,000 mcg PO DAILY 10/29/22 10/31/22 History mcg lozenges ropinirole 0.25 mg tablet 0.5 mg PO HS 10/29/22 10/31/22 History tiotropium bromide 18 mcg capsule 1 cap inhalation DAILY PRN as 10/29/22 10/31/22 History with inhalation device (Spiriva directed with HandiHaler) aspirin 81 mg chewable tablet 81 mg PO DAILY 10/30/22 10/31/22 History cholecalciferol (vitamin D3) 25 25 mcg PO DAILY 10/30/22 10/31/22 History mcg (1,000 unit) capsule prochlorperazine maleate 5 mg 5 mg PO TID PRN nausea and 10/30/22 10/31/22 Rx tablet (Compazine) vomiting #30 tabs albuterol sulfate 90 mcg/actuation 2 puff inhalation Q4 PRN Wheezing 10/31/22 10/31/22 History aerosol inhaler magnesium oxide 400 mg PO DAILY 10/31/22 10/31/22 History metoprolol succinate 50 mg 50 mg PO DAILY 10/31/22 10/31/22 History tablet,extended release 24 hr mirtazapine 15 mg tablet 15 mg PO HS 10/31/22 10/31/22 History amiodarone 200 mg tablet 400 mg PO UD #60 tabs 11/12/22 Rx famotidine 20 mg tablet (Pepcid) 20 mg PO HS PRN heartburn #30 tabs 11/12/22 Rx pantoprazole 40 mg tablet,delayed 40 mg PO QAM 30 days #30 tabs 11/12/22 Rx release Patient History Medical History Anxiety Barretts esophagus Chronic obstructive pulmonary disease CKD (chronic kidney disease), stage III Coronary artery disease CABG x 2 (2009) cardiac stent x 1 (2015 - LCx) Degenerative disc disease Depression Esophageal cancer Ganglion cyst Surgery on both wrists for this GERD (gastroesophageal reflux disease) controlled Hyperlipidemia Hypertension Learning disability cannot spell/limited reading skills Migraine "haven't had one in awhile" Myocardial Infarction "silent" OR- remote/several years ago Osteoarthritis PAD (peripheral artery disease) <50% aorta-iliac system stenosis per 09/26/19 duplex Paroxysmal atrial fibrillation Peripheral neuropathy LLE Port-A-Cath in place PVD (peripheral vascular disease) Stroke "silent" stroke noted incidentally on imaging several years ago, no residual issues Surgical History Fusion of spine LUMBAR ACDF C5-C7: 10/30/17: Grade view 1, MAC#3, ETT 7.0 at [facility] H/O esophagogastroduodenoscopy H/O shoulder surgery Left H/O sinus surgery History of bilateral tubal ligation History of cardiac cath CABG x 2 (2009); Donna; f/u dr kemp, ca cardiac stent x 1 (2015 - LCx); [facility] History of carpal tunnel surgery History of cholecystectomy History of colonoscopy History of esophagogastroduodenoscopy (EGD) History of Lauren fundoplication History of surgery Reconstruction of pyloris History of surgery Paraesophageal hernia repair with mesh in 2017 History of tonsillectomy History of tooth extraction History of total abdominal hysterectomy and bilateral salpingo-oophorectomy History of total hip arthroplasty LEFT History of total knee replacement RT/LEFT Removal of knee prosthesis S/P CABG (coronary artery bypass graft) Family History Father , 73yo Myocardial infarction Mother , in her 80s Breast cancer Myocardial infarction Brother Natural with unknown cause Brother Natural with unknown cause Brother No problems noted. Brother No problems noted. Sister Breast cancer Sister No problems noted. Sister No problems noted. Sister No problems noted. Son No problems noted. Daughter No problems noted. Daughter No problems noted. Daughter No problems noted. 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 Feels Safe at Home: Yes caffeine: No during the past year weight has: remained stable Assistive Devices: Walker Review of Systems Constitutional: Fatigue Eyes: no problem reported Ear, Nose, Mouth, Throat: no problem reported Respiratory: no problem reported Cardiovascular: no palpitations and no problem reported Gastrointestinal: See history of present illness Genitourinary: no problem reported Musculoskeletal: no problem reported Integumentary: no problem reported Neurologic: no problem reported Psychiatric: no problem reported Hematologic / Lymphatic: no problem reported Physical Exam Constitutional: WD/WN, vitals as above Eyes: PERRL, conjunctivae normal, anicteric sclerae ENMT: external ear and nose normal, oropharynx normal Neck: trachea midline, no thyromegaly Respiratory: normal respiratory effort, lungs clear to auscultation Cardiovascular: RRR, no murmur, no edema Gastrointestinal (Abdomen): normal bowel sounds, soft, nontender, no hepatosplenomegaly Skin: no rashes, warm and dry Neurologic: Normal strength and coordination. Psychiatric: A+Ox3, euthymic affect Lymphatic: no cervical or axillary lymphadenopathy Results (Rad Onc) Pathology Results: were reviewed and pertinent findings noted in HPI Imaging Studies: were reviewed and pertinent findings noted in HPI Time Spent Midlevel I spent [10] minutes in preparation for this follow up evaluation including reviewing all the clinical records, reviewing laboratory studies, pathology reports and imaging results. I spent [20] minutes with direct face to face interaction with the patient and/or family including performing a physical exam and answering all questions. I spent [10] minutes documenting this patient's visit.
[2022-11-05] MEDS: PANTOprazole 40 MG in SYRINGE 0 ML IV SCH ×2 (08:37→20:33)
[2022-11-05] MEDS: MAGNESIUM OXIDE 400 MG TAB PO SCH (08:37)
[2022-11-05] MEDS: METOPROLOL SUCC 50MG EXT REL TAB PO SCH (08:38)
[2022-11-05] MEDS: DULoxetine HCL 30 MG CAP PO SCH (08:38)
[2022-11-05] MEDS: CYANOCOBALAMIN (B-12) 500 MCG TABLET PO SCH (08:38)
[2022-11-05] MEDS: CHOLECALCIFEROL 1,000 UNITS 25 MCG TAB PO SCH (08:38)
[2022-11-05] MEDS: FERROUS SULFATE 325 MG TAB PO SCH (08:38)
[2022-11-05] MEDS: UMECLIDINIUM BROMIDE 62.5MCG/BLISTER 7 PUFFS/INHALER INH SCH (08:39)
[2022-11-05] MEDS: NICOTINE 21 MG/24 HR TDSY TD SCH (08:39)
[2022-11-05] MEDS: FLUTICASONE FUROATE 200MCG 14 PUFFS/INHALER INH SCH (08:39)
[2022-11-05] MEDS ORDERED: ADENOSINE IV SOLN 3 MG/ML 2 ML VIAL IV ONE (10:56)
[2022-11-05] MEDS ORDERED: SODIUM CHLORIDE 0.9% 1000ML 1,000 ML IV SCH (10:59)
--- NOTE | 2022-11-05 10:59 | Gastroenterology Progress Note ---
Date of Service November 05, 2022 Assessment & Plan (1) Esophageal carcinoma: Plan This is a 72-year-old female with extensive cardiac history including recurrent PSVT, with known esophageal adenocarcinoma. EGD/EUS yesterday as above, with a distal circumferential esophageal mass extending from 30->38 cm. Reports poor appetite today; tolerating liquids but states she was not recently able to tolerate solids. Abd soft, nontender. Though she reported some hematochezia several days ago, this has not recurred and HGB remains at baseline. On exam, soft abd. - As she is not tolerating PO intake, we suggest esophageal stenting which we can look to add to the schedule tomorrow. PEG not recommended as she is a surgical candidate. - Liquid diet today as tolerated then NPO after midnight - Continue IV Protonix therapy 40 mg b.i.d. - Patient is very high risk for massive upper GI bleeding if she is uses anticoagulation due to ongoing blood oozing of the large esophageal cancer. Please discuss this with Cardiology. - Follow up with Oncology to start treatment - Monitor and document GI output - Trend H&H, transfuse PRN Thank you for allowing us to participate in the care of this patient. Please call with any acute changes, questions or concerns. Please see addendum below with additional recommendation from my supervising physician. Admission and Anticipated Discharge Date Admission Date: October 31, 2022 Supervising Physician Co-Signing Physician Notes I performed a history and physical examination of the patient today, including specifically on physical exam - soft abdomen. I have discussed the patient's management with the advanced practitioner. Please refer to the nurse practitioner's note for the documented findings and plan of care. Not tolerated diet and can hardly do liquids. Plan for EGD tomorrow with esophageal stent placement. Subjective Patient seen and examined, chart reviewed. No acute events overnight. She's resting comfortably in bed having no specific complaints but reports she has no appetite. Can tolerate sips of liquid; tray of Jello and broth at bedside but pt doesn't want it. She states recently has been having trouble getting solid foods down. No nausea, vomiting, melena, hematochezia, hematemesis, fever, chills, CP, SOB. Physical Exam Constitutional: WD/WN, vitals as above (+ chronically ill) Eyes: PERRL, conjunctivae normal, anicteric sclerae Respiratory: Normal resp effort Cardiovascular: No edema Gastrointestinal (Abdomen): normal bowel sounds, soft, nontender, no hepatosplenomegaly Psychiatric: A+Ox3, euthymic affect Results & Data ([facility]) Vital Signs (Past 12 Hours) Vital Signs Temp Pulse Resp BP Pulse Ox O2 Del Method 11/05/22 10:41 36.5 C 170 H 16 70/38 L 94 Room Air 11/05/22 06:53 36.6 C 89 16 109/70 96 Room Air 11/05/22 03:42 36.7 C 76 18 99/62 L 94 Room Air 11/04/22 23:33 36.4 C L 78 18 109/55 L 93 Room Air Laboratory Results 11/05/22 11/05/22 Range/Units 05:45 05:45 WBC 8.88 (4.8-10.8) K/ul RBC 3.25 L (3.93-5.22) M/uL Hgb 9.7 L (12.0-16.0) g/dl Hct 30.0 L (34.1-44.9) % MCV 92.3 (80.0-100.0) fL MCH 29.8 (25.0-34.0) pg MCHC 32.3 (32.0-36.0) g/dL RDW Std Deviation 49.6 H (36.4-46.3) fL RDW Coeff of Cassi 14.6 H (11.5-14.5) % Plt Count 368 (130-400) K/uL MPV 9.5 (9.4-12.3) fL Sodium 135 L (136-145) mmol/L Potassium 4.3 (3.5-5.1) mmol/L Chloride 101 (98-107) mmol/L Carbon Dioxide 29 (21-32) mmol/L Anion Gap 5 (3-11) BUN 6 (6-23) mg/dl Creatinine 0.42 L (0.6-1.2) mg/dl Est Cr Clr Drug Dosing 108.9 ml/min Est GFR ( Amer) 118.7 ml/min Est GFR (Non-Af Amer) 102.4 ml/min BUN/Creatinine Ratio 14.3 (10-20) Glucose 96 (70-99(Fasting)) mg/dl Calcium 7.9 L (8.5-10.1) mg/dl Phosphorus 4.3 D (2.5-4.9) mg/dl Magnesium 1.8 (1.7-2.4) mg/dl Diagnostic Findings EGD/EUS 11/04/22: Findings: ENDOSONOGRAPHIC FINDING: : A hypoechoic mass was found in the lower third of the esophagus. The mass was encountered at 30 cm from the incisors and extended to 38 cm. The lesion was circumferential. The endosonographic borders were well-defined. There was sonographic evidence suggesting invasion into the adventitia (Layer 5). Impression: - Distal esophageal circumferential malignancy staged T3 N0 Mx by endosonographic criteria. .
[2022-11-05] MEDS ORDERED: METOPROLOL TARTRATE 1 MG/ML VIAL IV ONE (11:06)
[2022-11-05] MEDS ORDERED: AMIODARONE 360MG / 200ML D5W IV ONE (11:07)
[2022-11-05 11:43] LABS: Hematocrit (blood only) 33.2 % (34.1-44.9); Hemoglobin 10.7 g/dl (12.0-16.0)
[2022-11-05] MEDS: SODIUM CHLORIDE 0.9% 1000ML 1,000 ML IV SCH (11:43)
[2022-11-05] MEDS ORDERED: Nursing to Pharmacy Communication SCH (11:45)
[2022-11-05 12:10] LABS: Troponin I High Sensitivity 14.2 pg/ml (0-14)
[2022-11-05 12:13] LABS: Albumin Level 2.4 gm/dl (3.4-5.0); BUN Creatinine Ratio 10.7 (10-20); Bilirubin,Total 0.4 mg/dl (0.2-1.0); Calcium 7.7 mg/dl (8.5-10.1); Creatinine Clr Calc Pharmacy 81.7 ml/min; Est GFR (Non-African American) 93.2 ml/min; Globulin 2.3 gm/dl (2.5-4.0); Magnesium 1.8 mg/dl (1.7-2.4); Phosphorus 4.1 mg/dl (2.5-4.9); Total Protein 4.7 gm/dl (6.0-8.3)
[2022-11-05] MEDS ORDERED: 0.2 MICRON FILTER SET 1 EACH IV ONE (12:48)
--- NOTE | 2022-11-05 13:20 | Cardiology Progress Note ---
Date of Service November 05, 2022 Assessment & Plan (1) Paroxysmal atrial fibrillation: Plan: -experienced atrial fibrillation with a rapid ventricular response which was poorly tolerated. -converted to sinus rhythm on intravenous amiodarone. -well convert oral amiodarone in 24-48 hours. -continue metoprolol succinate and Eliquis. (2) PSVT (paroxysmal supraventricular tachycardia): Plan: -likely an AV nicolette reentrant tachycardia. -experienced an episode this morning which was poorly tolerated but converted with IV adenosine. -as above, we will continue IV amiodarone, convert to p.o. prior to discharge. (3) Coronary artery disease: Plan: -CABG x2 in April 2010. -LCx THOMAS in January 2015. -quiescent on medical management. (4) HTN (hypertension): Plan: -adequate control on current regimen. (5) Hyperlipidemia: Plan: -continue atorvastatin. Admission and Anticipated Discharge Date Admission Date: October 31, 2022 Subjective The patient was seen during [place] [facility] [place]. She is awake, alert, conversant, and appropriate. Physical Exam Physical Exam: In general is well-developed well-nourished white female no acute distress. HEENT exam is negative. Neck is supple with full carotid upstrokes. No carotid bruits. No JVD. There is no thyromegaly. Cardiovascular exam reveals a regular rhythm with a normal S1 and S2. Heart sounds are distant. No obvious murmurs. Lungs note distant breath sounds throughout but no rales, rhonchi, or wheezes. Abdomen is soft without bruits. Extremities reveal intact radial artery pulses bilaterally. There is no peripheral edema. Results & Data ([facility]) Vital Signs (Past 12 Hours) Vital Signs Temp Pulse Pulse Resp BP Pulse Ox O2 Del Method 11/05/22 12:58 86 18 101/65 94 Room Air 11/05/22 08:00 83 11/05/22 11:10 205 H 11/05/22 10:41 36.5 C 170 H 16 70/38 L 94 Room Air 11/05/22 06:53 36.6 C 89 16 109/70 96 Room Air 11/05/22 03:42 36.7 C 76 18 99/62 L 94 Room Air Diagnostic Findings monitoring manager notes a paroxysm of SVT which responded to adenosine, however came back is atrial fibrillation and a rapid ventricular response. PG Care Time/CCT Total # of Minutes Spent Total Time Spent with Patient: Total time spent is greater than 50% in coordination of care (as documented) at patient's floor/unit and/or counseling patient: Coding Level of Care Code 94359 Subseq Hosp Care Lvl 3 Diagnoses Paroxysmal atrial fibrillation I48.0 PSVT (paroxysmal supraventricular tachycardia) I47.1 Coronary artery disease I25.10 HTN (hypertension) I10 Hyperlipidemia E78.5
[2022-11-05] MEDS ORDERED: MAGNESIUM SULFATE / D5W 1 GM/100 ML BAG IV ONE (13:32)
--- NOTE | 2022-11-05 13:46 | Hospitalist Progress Note ---
Date of Service November 05, 2022 Assessment & Plan (1) Atrial fibrillation with RVR: (2) Esophageal carcinoma: Plan 72-year-old lady with PMH of CAD status post CABG and status post stent, PAF on Eliquis, CM [EF 55 to 60% on TTE 2017], PVD, TIA, HTN, HLD, Williamson's esophagus, recent diagnosis of esophageal adenocarcinoma 09/03/22, prediabetes, chronic anemia [baseline hemoglobin 9-10], ongoing tobacco abuse presented to our ED 09/17 with complaint of SVT, Nausea and vomiting. Of note, during recent EGD/EUS attempt on Oct 17, she had SVT and procedure aborted. She was off of metoprolol for 2 days. She was in oncology office on the day of arrival where she vomited/nauseous and went in SVT; hence presented to ED. She is being managed for the following: Nausea/vomiting Recent diagnosis of esophageal carcinoma: follows dr De eLon and dr Ni; consul t radiation oncology. Gastritis and esophagitis Lower GI bleed: BRBPR w/ stool 11/01, f/u [facility], holding aspirin and eliquis, await GI recs. Patient had episode of nausea and vomiting at oncology office on the day of arrival [see above] Diagnosed with esophageal adenocarcinoma 09/03/2022, was undergoing EGD/EUS on October 17 as part of onco w/u which was aborted due to SVT. Pt follows Dr. De Leon and Dr. Ni. Pt continues to smoke, pt has recurrent nausea and vomiting. Admitting CTAP: 1. The partially visualized distal esophagus/gastric pull-through is markedly thick walled and edematous. This could represent a severe gastritis/esophagitis or possibly a mass lesion. Clinical correlation will be required and endoscopy could be considered for further assessment. 2. There is a 12 mm focal outpouching of the distal esophagus/gastric pull- through versus necrotic paraesophageal lymph node. 3. Trace right pleural effusion with associated pleural thickening. This was also seen in 2016. 4. No acute infectious or inflammatory findings are identified in the abdomen or pelvis. 11/04 EUS: Distal esophageal circumferential malignancy staged T3 N0 Mx by endosonographic criteria. Patient is very high risk for massive upper GI bleeding if she is using anticoagulation due to ongoing blood oozing of the large esophageal cancer. For Nausea/vomiting: zofran as needed, slippery small freq meals, Pedialytes solution by bedside, c/w PPI, For inability to swallow solid diet, patient is being taken to esophageal stent tomorrow per GI. N.p.o. midnight. Discussed with cardiology, will hold Eliquis and aspirin indefinitely due to patient's high risk submassive upper GI bleed. Continue to monitor and replete electrolytes, continue with normal saline until patient able to eat. Radiation oncology consulted, ongoing evaluation, appreciate. Pt will need to maintain f/u w/ her OP oncology team. 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 All three cell lines elevated at presentation, came down w/ iv hydration, Pt was started on Zosyn 10/31 for possible infection, procal neg 11/01, pt afebrile, zosyn DC'd. UA wnl. CXR no acute process. Monitor off Atb. Repeat Bl Cx NG48H. Blood culture +ve, likely contaminant:Positive blood culture 2/4 on 10/31 draw, repeated 11/01; serology positive for epidermidis, likely contaminant, WBC coming down, pt afebrile, follow clinically and repeat Bl Cx - no growth 48 hours. Likely demand ischemia secondary to tachycardia SVT/ Afib RVR Pt presented w/ SVT, trop elevated, pt w/ no chest pain Likely demand ischemia, continue tele, pt has h/o orthostatic hypotension --> slow transition between position changes, pt aware. 09/18/2022 echo: EF 60 to 65%, grade 2 diastolic dysfunction. Moderate concentric LVH. Patient again with SVT and A. fib RVR in the a.m. of 11/05/2022, status post IV adenosine x2, IV metoprolol 5 mg x 1, IV amiodarone 150 Mg bolus followed by amiodarone drip and finally conversion to sinus rhythm and about half an hour after treatment. Continue with IV fluid, continue with amiodarone drip, plan to transition to p.o. amiodarone on Thursday after cardiology evaluation c/w metoprolol. Cardio on board. Monitor and replete electrolytes. Hold Eliquis and aspirin indefinitely [see above] Other chronic medical conditions:CAD status post CABG/stent, PVD, PAF on Eliquis, CM, TIA, HTN, HLD, Williamson's esophagus, chronic anemia, prediabetes, ongoing tobacco abuse --->> continue with/resume home meds as and when able. DVT prophylaxis: SCDs Full code 11/05/2022: Patient's Sae was given a phone call and given a detailed update on code purple and other ongoing management and need to hold her Eliquis/aspirin. He voiced understanding. All his questions were answered to his satisfaction. Admission and Anticipated Discharge Date Admission Date: October 31, 2022 Subjective Patient seen and examined at bedside as a follow-up of supraventricular tachycardia and A. fib with RVR, nausea and vomiting on the background of recent diagnosis of esophageal carcinoma, possible sepsis. Charts reviewed, labs reviewed. 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 Patient denied any chest pain or feeling of heart racing, patient denies any headache or dizziness, denies other review of symptoms. Pt reports having fresh blood in stool 11/01 but no stool since 11/02. Pt denies pain or feverish feeling. Later in the morning, patient was "code purple". Patient was walking to the restroom, she felt shaky and was found to be in heart rate of 170s/SVTs, no association with chest pain or feeling of heart racing, felt not well. Code purple was 1050 hrs. patient's blood pressure was 68/44 and heart rate fluctuated between 170s to 190s. Patient received adenosine 6 mg IV, transient improvement in the heart rate but again reverted back to SVTs, patient received another 12 Mg IV adenosine, now patient with A. fib RVR with heart rate in 150s. After second dose of adenosine, patient was nauseous and vomited greenish vomitus. Patient felt superintendent building the chest. Her blood pressure and heart rate were unstable throughout with transient improvement towards normal infrequently. Patient was given 150 Mg IV amiodarone followed by amiodarone drip. Patient was also given 5 mg of IV metoprolol. Still with blood pressure in 70s to 60s over 50s to 40s. Still with heart rate elevated but around 120s. After about half an hour, she converted into sinus rhythm, she received 1 L of normal saline bolus followed by normal saline drip. Her blood pressure improved. Patient was hemodynamically stable when I left the room. The caren trevizo formally ran up to 1116 hrs. During the event, patient was nauseous and vomited, declined chest pain or feeling of heart racing. Cardiology was made aware/in the room. Discussed with cardiology, plan to continue with IV amiodarone drip until Thursday morning and then possible transition to p.o. amiodarone. Will continue with IV fluid for the time being. H&H, CMP, magnesium level, troponin were sent and reviewed, WNL. Total of 45 minutes of critical care time was spent in patient care attending caren trevizo, ordering/reviewing labs, charting and communicating with RNs/patient's Sae. Discussed with GI, because the patient is not able to swallow solid food, continue with liquid diet today and then n.p.o. midnight for possible esophageal stenting tomorrow. Also discussed with cardiology regarding anticoagulation due to risk submassive GI bleed from cancer site, plan to stop aspirin and Eliquis. Physical Exam Physical Exam: GENERAL: Alert and oriented x3. NAD, on RA. Appears ill and frail and weak. HEENT: No pallor, no icterus. Pupils equal, round and reactive to light. Oral mucosa moist. NECK: No JVD, no neck masses. HEART: S1 and S2 heard. regular rate and rhythm. No murmur, no gallop. RESPIRATORY SYSTEM: Normal AP diameter. No accessory muscle use. No wheezing, no crackles. ABDOMEN: Soft, bowel sounds present, nontender, no distention. CENTRAL NERVOUS SYSTEM: No facial droop. Speech is clear. Obeys simple commands. Moves extremities. EXTREMITIES: No edema, no erythema seen. Results & Data Results & Data ([facility]) Vital Signs (Past 12 Hours) Vital Signs Temp Pulse Pulse Resp BP Pulse Ox O2 Del Method 11/05/22 12:58 86 18 101/65 94 Room Air 11/05/22 08:00 83 11/05/22 11:10 205 H 11/05/22 10:41 36.5 C 170 H 16 70/38 L 94 Room Air 11/05/22 06:53 36.6 C 89 16 109/70 96 Room Air 11/05/22 03:42 36.7 C 76 18 99/62 L 94 Room Air
--- NOTE | 2022-11-05 14:28 | Electrocardiogram Report ---
Test Reason : Blood Pressure : / mmHG Vent. Rate : 175 BPM Atrial Rate : 083 BPM P-R Int : 000 ms QRS Dur : 094 ms QT Int : 286 ms P-R-T Axes : 000 063 265 degrees QTc Int : 488 ms Suspect V1-V3 lead reversal Supraventricular tachycardia Possible Right ventricular hypertrophy Marked T-wave abnormality, consider inferolateral ischemia Abnormal ECG When compared with ECG of 02-NOV-2022 05:26, Significant changes have occurred Confirmed by Toi Sexton ([id number]) on 11/05/2022 2:27:40 PM Referred By: REFERRED SELF Confirmed By:Toi Sexton
--- NOTE | 2022-11-05 14:29 | Electrocardiogram Report ---
Test Reason : Blood Pressure : / mmHG Vent. Rate : 145 BPM Atrial Rate : 101 BPM P-R Int : 000 ms QRS Dur : 084 ms QT Int : 264 ms P-R-T Axes : 000 060 -84 degrees QTc Int : 410 ms Supraventricular tachycardia Post adenosine pause Possible Right ventricular hypertrophy Anterior infarct (cited on or before 05-NOV-2022) Marked ST abnormality, possible inferior subendocardial injury Abnormal ECG When compared with ECG of 05-NOV-2022 10:56, (unconfirmed) Significant changes have occurred Confirmed by Toi Sexton ([id number]) on 11/05/2022 2:28:52 PM Referred By: REFERRED SELF Confirmed By:Toi Sexton
--- NOTE | 2022-11-05 14:30 | Electrocardiogram Report ---
Test Reason : Blood Pressure : / mmHG Vent. Rate : 114 BPM Atrial Rate : 114 BPM P-R Int : 162 ms QRS Dur : 082 ms QT Int : 326 ms P-R-T Axes : 061 058 -35 degrees QTc Int : 449 ms Suspect V1-V3 lead reversal Sinus tachycardia with Premature atrial complexes Abnormal ECG When compared with ECG of 05-NOV-2022 10:59, (unconfirmed) Significant changes have occurred Confirmed by Toi Sexton ([id number]) on 11/05/2022 2:29:45 PM Referred By: REFERRED SELF Confirmed By:Toi Sexton
--- NOTE | 2022-11-05 14:31 | Electrocardiogram Report ---
Test Reason : Blood Pressure : / mmHG Vent. Rate : 167 BPM Atrial Rate : 178 BPM P-R Int : 000 ms QRS Dur : 084 ms QT Int : 280 ms P-R-T Axes : 000 057 -83 degrees QTc Int : 467 ms Suspect V1-V3 lead reversal Atrial fibrillation with rapid ventricular response Marked ST abnormality, possible inferior subendocardial injury Abnormal ECG When compared with ECG of 05-NOV-2022 11:00, (unconfirmed) Atrial fibrillation has replaced Sinus rhythm Confirmed by Toi Sexton ([id number]) on 11/05/2022 2:31:06 PM Referred By: REFERRED SELF Confirmed By:Toi Sexton
--- NOTE | 2022-11-05 14:34 | Electrocardiogram Report ---
Test Reason : Blood Pressure : / mmHG Vent. Rate : 089 BPM Atrial Rate : 089 BPM P-R Int : 150 ms QRS Dur : 086 ms QT Int : 382 ms P-R-T Axes : 071 069 049 degrees QTc Int : 464 ms Normal sinus rhythm Nonspecific ST abnormality Abnormal ECG When compared with ECG of 05-NOV-2022 11:02, (unconfirmed) Significant changes have occurred Confirmed by Toi Sexton ([id number]) on 11/05/2022 2:33:30 PM Referred By: REFERRED SELF Confirmed By:Toi Sexton
--- NOTE | 2022-11-05 15:49 | Anesthesiology Consultation ---
Date of Service November 05, 2022 Assessment & Plan (1) Encounter for pre-operative examination: Chart Review Chart Review: Acceptable Risk for Surgery and Patient NOT seen in Pre Admission Testing Consults Requested none History Surgery Operation Date: 11/04/22 13:15 Proposed Procedures p Endoscopic Ultrasonography Upper - Rosangela Colbert MD Operation Date: 11/06/22 07:40 Proposed Procedures p Esophagogastroduodenoscopy with Stent Placement - Rosangela Colbert MD Operation Date: 11/06/22 16:30 Proposed Procedures p Esophagogastroduodenoscopy Dr Colbert - Rosangela Colbert MD Height/Weight Height: 5 ft 5 in Weight: 65.2 kg Allergies Allergy/AdvReac Type Severity Reaction Status Date / Time sumatriptan AdvReac Unknown advised to Verified 10/29/22 10:13 avoid d/t hx heart surgery varenicline AdvReac Unknown advised to Verified 10/29/22 10:13 avoid d/t hx heart surgery Medications Home Medications Medication Instructions Recorded Confirmed Last Taken atorvastatin 80 mg tablet 80 mg PO HS 03/22/19 10/31/22 10/16/22 19:30 duloxetine 30 mg capsule,delayed 30 mg PO QAM 03/22/19 10/31/22 10/16/22 07:00 release (Cymbalta) trazodone 150 mg tablet 150 mg PO HS 03/22/19 10/31/22 10/16/22 19:30 nitroglycerin 0.4 mg sublingual 0.4 mg sublingual UD PRN chest 06/24/19 10/31/22 Unknown tablet pain #1 tab apixaban 5 mg tablet (Eliquis) 5 mg PO AMHS 09/18/22 10/31/22 10/15/22 07:00 ondansetron 4 mg disintegrating 4 mg PO Q8H PRN nausea and 09/20/22 10/31/22 1 Week Ago tablet vomiting #60 tabs ~10/10/22 acetaminophen 500 mg tablet 500 mg PO Q4 PRN Pain 10/29/22 10/31/22 Unknown (Tylenol Extra Strength) albuterol sulfate 2.5 mg/3 mL 2.5 mg inhalation Q4H PRN 10/29/22 10/31/22 Unknow n (0.083 %) solution for nebulization Abdominal Discomfort ferrous sulfate 325 mg (65 mg 325 mg PO DAILY 10/29/22 10/31/22 Unknown iron) tablet (FeroSul) fluticasone propionate 220 2 puff inhalation BID PRN as 10/29/22 10/31/22 Unknown mcg/actuation HFA aerosol inhaler directed (Flovent HFA) mecobalamin (vitamin B12) 1,000 1,000 mcg PO DAILY 10/29/22 10/31/22 Unknown mcg lozenges ropinirole 0.25 mg tablet 0.5 mg PO HS 10/29/22 10/31/22 Unknown tiotropium bromide 18 mcg capsule 1 cap inhalation DAILY PRN as 10/29/22 10/31/22 Unknown with inhalation device (Spiriva directed with HandiHaler) aspirin 81 mg chewable tablet 81 mg PO DAILY 10/30/22 10/31/22 Unknown cholecalciferol (vitamin D3) 25 25 mcg PO DAILY 10/30/22 10/31/22 Unknown mcg (1,000 unit) capsule prochlorperazine maleate 5 mg 5 mg PO TID PRN nausea and 10/30/22 10/31/22 Unknown tablet (Compazine) vomiting #30 tabs albuterol sulfate 90 mcg/actuation 2 puff inhalation Q4 PRN Wheezing 10/31/22 10/31/22 Unknown aerosol inhaler magnesium oxide 400 mg PO DAILY 10/31/22 10/31/22 Unknown metoprolol succinate 50 mg 50 mg PO DAILY 10/31/22 10/31/22 Unknown tablet,extended release 24 hr mirtazapine 15 mg tablet 15 mg PO HS 10/31/22 10/31/22 Unknown omeprazole 40 mg capsule,delayed 40 mg PO DAILYBB 10/31/22 10/31/22 Unknown release Active Medications Generic Name Dose Route Start Last Admin Trade Name Freq PRN Reason Stop Dose Admin Acetaminophen 650 mg 10/31/22 20:24 11/02/22 07:18 Acetaminophen 325 Mg Tab PO 11/30/22 20:23 650 mg Q4H PRN Administration Pain or Fever Apixaban 5 mg 10/31/22 21:00 11/01/22 20:52 Apixaban 5 Mg Tablet PO 11/30/22 20:59 5 mg AMHS ANDREY Administration Aspirin 81 mg 11/01/22 09:00 11/01/22 08:16 Aspirin 81 Mg Ectab PO 12/01/22 08:59 81 mg DAILY ANDREY Administration Atorvastatin Calcium 80 mg 10/31/22 21:00 11/04/22 20:22 Atorvastatin 40 Mg Tab PO 11/30/22 20:59 80 mg HS ANDREY Administration Cyanocobalamin 1,000 mcg 11/01/22 09:00 11/05/22 08:38 Cyanocobalamin (B-12) 500 Mcg Tablet PO 12/01/22 08:59 1,000 mcg DAILY ANDREY Administration Duloxetine HCl 30 mg 11/01/22 09:00 11/05/22 08:38 Duloxetine Hcl 30 Mg Cap PO 12/01/22 08:59 30 mg QAM ANDREY Administration Ferrous Sulfate 325 mg 11/01/22 09:00 11/05/22 08:38 Ferrous Sulfate 325 Mg Tab PO 12/01/22 08:59 325 mg DAILY ANDREY Administration Fluticasone Furoate 1 puffs 11/01/22 09:00 11/05/22 08:39 Fluticasone Furoate 200mcg 14 Puffs/Inhaler INH 12/01/22 08:59 Not Given DAILY ANDREY Pantoprazole Sodium 40 mg/ 10 mls @ 5 mls/min 10/31/22 21:00 11/05/22 08:37 Syringe IV 11/30/22 20:59 5 mls/min BID ANDREY Administration Sodium Chloride 1,000 mls @ 80 mls/hr 11/05/22 11:30 11/05/22 11:43 Nss 1000ml IV Not Given .[id number] ANDREY Magnesium Oxide 400 mg 11/01/22 09:00 11/05/22 08:37 Magnesium Oxide 400 Mg Tab PO 12/01/22 08:59 400 mg DAILY ANDREY Administration Metoprolol Succinate 50 mg 11/01/22 09:00 11/05/22 08:38 Metoprolol Succ 50mg Ext Rel Tab PO 12/01/22 08:59 50 mg DAILY ANDREY Administration Mirtazapine 15 mg 10/31/22 21:00 11/04/22 20:22 Mirtazapine Tab 15 Mg Tab PO 11/30/22 20:59 15 mg HS ANDREY Administration Miscellaneous 1 each 11/01/22 08:59 11/05/22 08:37 Remove Nicoderm Patch N/A 12/01/22 08:58 1 each DAILY@0859 ANDREY Administration Nicotine 21 mg 10/31/22 20:55 11/05/22 08:39 Nicotine 21 Mg/24 Hr Tdsy TD 11/30/22 20:54 21 mg DAILY ANDREY Administration Ondansetron HCl 4 mg 10/31/22 20:24 11/02/22 06:34 Ondansetron Inj 2 Mg/Ml 2 Ml Vial IV 11/30/22 20:23 4 mg Q6H PRN Administration Nausea Prochlorperazine 5 mg 10/31/22 20:24 11/01/22 09:56 Prochlorperazine Maleate 5 Mg Tab PO 11/30/22 20:23 5 mg TID PRN Administration nausea and vomiting Ropinirole HCl 0.5 mg 10/31/22 21:00 11/04/22 20:22 Ropinirole Hcl 0.25 Mg Tablet PO 11/30/22 20:59 0.5 mg HS ANDREY Administration Trazodone HCl 150 mg 10/31/22 21:00 11/04/22 20:23 Trazodone Hcl 50 Mg Tab PO 11/30/22 20:59 150 mg HS ANDREY Administration Umeclidinium [place] 1 puffs 11/01/22 09:00 11/05/22 08:39 Umeclidinium [place] 62.5mcg/Blister 7 Puffs/Inhaler INH 12/01/22 08:59 Not Given DAILY ANDREY Vitamin D 1,000 units 11/01/22 09:00 11/05/22 08:38 Cholecalciferol 1,000 Units 25 Mcg Tab PO 12/01/22 08:59 1,000 units DAILY ANDREY Administration NPO Date Last Intake of Fluids: 11/03/22 Time Last Intake of Fluids: 17:00 Date Last Intake of Solids: 11/03/22 Time Last Intake of Solids: 17:00 Past Medical History Medical History Anxiety Barretts esophagus Chronic obstructive pulmonary disease CKD (chronic kidney disease), stage III Coronary artery disease CABG x 2 (2009) cardiac stent x 1 (2014 - LCx) Degenerative disc disease Depression Esophageal cancer Ganglion cyst Surgery on both wrists for this GERD (gastroesophageal reflux disease) controlled Hyperlipidemia Hypertension Learning disability cannot spell/limited reading skills Migraine "haven't had one in awhile" Myocardial Infarction "silent" MO- remote/several years ago Osteoarthritis PAD (peripheral artery disease) <50% aorta-iliac system stenosis per 09/26/19 duplex Paroxysmal atrial fibrillation Peripheral neuropathy LLE Port-A-Cath in place PVD (peripheral vascular disease) Stroke "silent" stroke noted incidentally on imaging several years ago, no residual issues Past Family History Family History Father , 73yo Myocardial infarction Mother , in her 80s Breast cancer Myocardial infarction Brother Natural with unknown cause Brother Natural with unknown cause Brother No problems noted. Brother No problems noted. Sister Breast cancer Sister No problems noted. Sister No problems noted. Sister No problems noted. Son No problems noted. Daughter No problems noted. Daughter No problems noted. Daughter No problems noted. Past Surgical History Surgical History Fusion of spine LUMBAR ACDF C5-C7: 10/30/17: Grade view 1, MAC#3, ETT 7.0 at [facility] H/O esophagogastroduodenoscopy H/O shoulder surgery Left H/O sinus surgery History of bilateral tubal ligation History of cardiac cath CABG x 2 (2009); Donna; f/u dr kemp, [place] cardiac stent x 1 (2015 - LCx); [facility] History of carpal tunnel surgery History of cholecystectomy History of colonoscopy History of esophagogastroduodenoscopy (EGD) History of Lauren fundoplication History of surgery Reconstruction of pyloris History of surgery Paraesophageal hernia repair with mesh in 2017 History of tonsillectomy History of tooth extraction History of total abdominal hysterectomy and bilateral salpingo-oophorectomy History of total hip arthroplasty LEFT History of total knee replacement RT/LEFT Removal of knee prosthesis Social History Smoking Status: Current some day smoker tobacco type: cigarettes Smoking cigarettes per day: 1 Do You Dip or Chew Tobacco: No Hx Alcohol Use: No Alcohol type: beer alcohol intake frequency: holidays/special occasions only Hx Substance Use: No substance use type: does not use Physical Exam Vital Signs Last Vital Signs Temp 36.6 C 11/05/22 15:26 Pulse 68 11/05/22 15:26 Resp 16 11/05/22 15:26 BP 95/60 L 11/05/22 15:26 Pulse Ox 95 11/05/22 15:26 O2 Del Method 11/05/22 15:26 O2 Flow Rate 2 11/04/22 17:15 Testing Laboratory Results 11/05/22 11:26 11/05/22 11:26 PT 12.6 Seconds (9.0-12.0) H 10/31/22 14:20 INR 1.2 (0.9-1.1) H 10/31/22 14:20 APTT 34.2 Seconds (21.0-31.0) H 10/31/22 14:20 Hemoglobin A1c 5.4 % (4.5-5.6) 11/01/22 05:32 Urine Color Yellow 10/31/22 19:30 Urine Appearance Clear (Clear) 10/31/22 19:30 Urine pH 6.0 (4.5-7.5) 10/31/22 19:30 Ur Specific [place] 1.044 (1.000-1.030) H 10/31/22 19:30 Urine Protein Negative (Negative) 10/31/22 19:30 Urine Glucose (UA) Negative (Negative) 10/31/22 19:30 Urine Ketones Negative (Negative) 10/31/22 19:30 Urine Nitrite Negative (Negative) 10/31/22 19:30 Ur Leukocyte Esterase Negative (Negative) 10/31/22 19:30 Blood Type O Positive 11/01/22 21:28 Antibody Screen NEGATIVE 11/01/22 21:28 10/31/22 15:29 Aerobic Blood Culture - Final Blood Coag neg staph not lugdunensis Anaerobic Blood Culture - Final Coag neg staph not lugdunensis 11/01/22 11:28 Aerobic Blood Culture - Preliminary Blood No growth in Aerobic bottle after 48 hours. Anaerobic Blood Culture - Final 11/01/22 11:27 Aerobic Blood Culture - Preliminary Blood No growth in Aerobic bottle after 48 hours. Anaerobic Blood Culture - Preliminary No growth in Anaerobic bottle after 48 hours. 10/31/22 15:29 Aerobic Blood Culture - Preliminary Blood No growth in Aerobic bottle after 48 hours. Anaerobic Blood Culture - Final Electrocardiogram Date: 11/05/22 DICTATED BY:Toi Sexton MD Test Reason : Blood Pressure : / mmHG Vent. Rate : 089 BPM Atrial Rate : 089 BPM P-R Int : 150 ms QRS Dur : 086 ms QT Int : 382 ms P-R-T Axes : 071 069 049 degrees QTc Int : 464 ms Normal sinus rhythm Nonspecific ST abnormality Abnormal ECG When compared with ECG of 05-NOV-2022 11:02, (unconfirmed) Significant changes have occurred Confirmed by Toi Sexton ([id number]) on 11/05/2022 2:33:30 PM Referred By: REFERRED SELF Confirmed By:Toi Sexton Signed By: Chest X-Ray Date: 10/31/22 IMPRESSION: 1. Small pleural effusions, right larger than left with bibasilar scarring/atelectasis. 2. Emphysema. Echocardiogram Date: 09/18/22 Compared with 02/20/15 study, some progression of LVH, otherwise no significant change. LV systolic function is normal. EF 60-65% Moderate concentric LVH Diastolic dysfunction, grade 2, consistent with elevated LA pressure RV is normal in size and function No significant valvular disease
[2022-11-05] MEDS: AMIODARONE / D5W 360 MG/200 ML BAG IV SCH (15:54)
[2022-11-05] MEDS: ATORVASTATIN 40 MG TAB PO SCH (20:33)
[2022-11-05] MEDS: rOPINIRole HCL 0.25 MG TABLET PO SCH (20:33)
[2022-11-05] MEDS: MIRTAZAPINE TAB 15 MG TAB PO SCH (20:34)
[2022-11-05] MEDS: traZODone HCL 50 MG TAB PO SCH (20:35)
[2022-11-06] MEDS: AMIODARONE / D5W 360 MG/200 ML BAG IV SCH ×2 (04:07→16:48)
[2022-11-06 07:42] LABS: Hematocrit (blood only) 29.5 % (34.1-44.9); Hemoglobin 9.6 g/dl (12.0-16.0); Mean Corpuscular Hemoglobin 29.8 pg (25.0-34.0); Mean Corpuscular Hgb Conc 32.5 g/dL (32.0-36.0); Mean Corpuscular Volume 91.6 fL (80.0-100.0); Mean Platelet Volume 9.4 fL (9.4-12.3); Platelet Count 338 K/uL (130-400); RDW Coefficient of Variation 14.6 % (11.5-14.5); RDW Standard Deviation 49.6 fL (36.4-46.3); Red Blood Count 3.22 M/uL (3.93-5.22); White Blood Count 9.59 K/ul (4.8-10.8)
--- NOTE | 2022-11-06 08:03 | Communication Note ---
Date of Service: November 06, 2022 Patient will be undergoing placement of a esophageal stent today. We will therefore hold on CT simulation until tomorrow. Information has been relayed to nursing. This update will be forwarded to the patient.
[2022-11-06 08:04] LABS: Calcium 7.7 mg/dl (8.5-10.1); Creatinine Clr Calc Pharmacy 91.5 ml/min; Est GFR (African American) 112.1 ml/min; Est GFR (Non-African American) 96.7 ml/min; Magnesium 1.9 mg/dl (1.7-2.4); Phosphorus 3.7 mg/dl (2.5-4.9); Potassium 3.7 mmol/L (3.5-5.1)
[2022-11-06] MEDS: FLUTICASONE FUROATE 200MCG 14 PUFFS/INHALER INH SCH (09:00)
[2022-11-06] MEDS: PANTOprazole 40 MG in SYRINGE 0 ML IV SCH ×2 (09:00→20:17)
[2022-11-06] MEDS: UMECLIDINIUM BROMIDE 62.5MCG/BLISTER 7 PUFFS/INHALER INH SCH (09:00)
--- NOTE | 2022-11-06 11:37 | History & Physical Bridge Note ---
Date of Service November 06, 2022 History & Physical Bridge Note I have examined the patient, reviewed the History & Physical and in the interval since the performance of the History & Physical I have noted the following changes of clinical significance: no changes noted EGD with esophageal stent placement. Patient was explained in detail regarding risks, benefits, limitations and alternatives of the above endoscopic procedure. Risks of intravenous sedation used for procedure were also explained. Risks include, but not limited to perforation, bleeding, infection, respiratory distress, cardiac arrest and . Patient is also aware about the possibility of missed lesion. Patient's questions were answered. The patient verbalized understanding the information and agreed to undergo the procedure.
[2022-11-06] MEDS: CHOLECALCIFEROL 1,000 UNITS 25 MCG TAB PO SCH (12:39)
[2022-11-06] MEDS: MAGNESIUM OXIDE 400 MG TAB PO SCH (12:39)
[2022-11-06] MEDS: DULoxetine HCL 30 MG CAP PO SCH (12:39)
[2022-11-06] MEDS: FERROUS SULFATE 325 MG TAB PO SCH (12:39)
[2022-11-06] MEDS: CYANOCOBALAMIN (B-12) 500 MCG TABLET PO SCH (12:39)
[2022-11-06] MEDS ORDERED: MIDAZOLAM HCL 1 MG/ML 2ML VIAL ONE (13:07)
[2022-11-06] MEDS ORDERED: fentaNYL citrate 100 MCG/2 ML VIAL ONE (13:07)
[2022-11-06] MEDS ORDERED: fentaNYL citrate 100 MCG/2 ML VIAL IV PRN (13:24)
[2022-11-06] MEDS ORDERED: ePHEDrine sulfate 50 MG/ML AMP IV PRN (13:24)
[2022-11-06] MEDS ORDERED: ATROPINE SULFATE 0.1 MG/ML 10ML SYR IV PRN (13:24)
[2022-11-06] MEDS ORDERED: SUCCINYLCHOLINE CHLORIDE 20 MG/ML 10 ML VIAL IV ONE (13:40)
[2022-11-06] MEDS ORDERED: ePHEDrine sulfate 50 MG/ML SYR ONE (13:40)
--- NOTE | 2022-11-06 13:57 | Operative Report ---
Post Operative Report Pre & Post Diagnosis Operation Date: 11/04/22 13:15 Pre-Op Diagnosis: esophageal cancer Post-Op Diagnosis: esophageal cancer Operation Date: 11/06/22 07:40 Pre-Op Diagnosis: WEAKNESS, SVT Operation Date: 11/06/22 16:30 <No data on this case meets the specified criteria> I identified the patient and participated in the time-out.: Yes Procedure Operation Date: 11/04/22 13:15 Actual Procedures p Endoscopic Ultrasonography Upper - Rosangela Colbert MD s Esophagogastroduodenoscopy - Rosangela Colbert MD Operation Date: 11/06/22 07:40 <No data on this case meets the specified criteria> Operation Date: 11/06/22 16:30 <No data on this case meets the specified criteria> Surgeon Rosangela Colbert MD Cytologist None Estimated Blood Loss 0 Findings See Below (Esophageal stent placed.) Specimens None Description of Procedure EGD I attest to the content of the Intraoperative Record and any orders documented therein. Any exceptions are noted below.
--- NOTE | 2022-11-06 14:08 | GI REPORT ---
Patient Name: Laury Olivares Procedure Date: 11/06/2022 1:08 PM Date of : 1950 Admit Type: Inpatient Age: 72 Gender: Female Attending MD: Rosangela Colbert MD, Procedure: Upper GI endoscopy Providers: Rosangela Colbert MD Referring MD: Gerard Cole Md Indications: Dysphagia Medicines: General Anesthesia Complications: No immediate complications. Estimated Blood Loss: Estimated blood loss: none. Procedure: Pre-Anesthesia Assessment: - Prior to the procedure, a History and Physical was performed, and patient medications, allergies and sensitivities were reviewed. The patient's tolerance of previous anesthesia was reviewed. - The risks and benefits of the procedure and the sedation options and risks were discussed with the patient. All questions were answered and informed consent was obtained. - Patient identification and proposed procedure were verified prior to the procedure by the physician and the nurse. The procedure was verified in the procedure room. - Pre-procedure physical examination revealed no contraindications to sedation. After obtaining informed consent, the endoscope was passed under direct vision. Throughout the procedure, the patient's blood pressure, pulse, and oxygen saturations were monitored continuously. The Scope was introduced through the mouth, and advanced to the second part of duodenum. The upper GI endoscopy was accomplished without difficulty. The patient tolerated the procedure well. Findings: A large, fungating mass was found in the lower third of the esophagus. The mass was obstructing and circumferential. This was stented with a 20 mm x 12.5 cm Evolution partially covered controlled-release stent with a 25 mm flange under fluoroscopic guidance. I personally interpreted the fluoroscopic images. Two clips placed proximally to anchor the stent. Impression: - Obstructing, malignant esophageal tumor was found in the lower third of the esophagus. Esophageal stent placed. Recommendation: - [facility]. - Clear liquid diet for 2 days, then advance as tolerated to full liquid diet for 2 days then follow post stent special diet. - Follow an antireflux regimen. - Use Protonix (pantoprazole) 40 mg PO daily. - Follow up with Oncology as OP. - Patient can use low dose ASA. - Recall GI if needed. Rosangela Colbert MD 11/06/2022 2:07:54 PM This report has been signed electronically. Note Initiated On: 11/06/2022 1:08 PM Number of Addenda: 0 I attest to the content of the Intraoperative Record and orders documented therein, exceptions below {[id number]}
[2022-11-06] MEDS: METOPROLOL SUCC 50MG EXT REL TAB PO SCH (15:08)
[2022-11-06] MEDS: NICOTINE 21 MG/24 HR TDSY TD SCH (15:09)
--- NOTE | 2022-11-06 15:14 | Anesthesiology Progress Note ---
Date of Service November 06, 2022 Anesthesia Post Procedure Vital Signs Vital Signs: Temp Pulse Pulse Resp BP Pulse Ox O2 Del Method 11/06/22 15:05 36.6 C 101 H 18 149/85 H 96 Room Air 11/06/22 14:58 36.8 C 104 H 18 152/84 H 96 Room Air 11/06/22 14:25 105 H 20 154/82 H 96 Room Air 11/06/22 14:15 106 H 18 147/76 H 96 Room Air 11/06/22 14:06 37.0 C 104 H 21 160/77 H 100 Oxymask 11/06/22 12:26 37.1 C 76 20 115/59 L 97 Room Air 11/06/22 12:04 36.5 C 62 17 131/78 99 Room Air 11/06/22 08:00 11/06/22 11:42 36.9 C 64 18 92/53 L 99 Room Air 11/06/22 07:42 36.8 C 72 17 119/73 94 Room Air 11/06/22 03:26 36.6 C 54 L 18 93/56 L 97 Room Air 11/06/22 00:00 61 11/05/22 23:07 36.6 C 73 18 96/60 L 97 Room Air 11/05/22 20:00 Room Air 11/05/22 19:40 36.5 C 69 18 113/70 96 Room Air 11/05/22 16:45 87 99/65 L Room Air 11/05/22 16:00 65 11/05/22 15:26 36.6 C 68 16 95/60 L 95 Room Air O2 Del Method O2 Flow Rate 11/06/22 15:05 11/06/22 14:58 11/06/22 14:25 11/06/22 14:15 11/06/22 14:06 5 11/06/22 12:26 11/06/22 12:04 11/06/22 08:00 Room Air 11/06/22 11:42 11/06/22 07:42 11/06/22 03:26 11/06/22 00:00 11/05/22 23:07 11/05/22 20:00 11/05/22 19:40 11/05/22 16:45 11/05/22 16:00 11/05/22 15:26 Transfer of Care Handoff Completed per policy Notes Mental Status: alert / awake / arousable Patient Amnestic to Procedure: Yes Nausea / Vomiting: adequately controlled Pain: adequately controlled Airway Patency, RR, SpO2: stable & adequate BP & HR: stable & adequate Hydration State: stable & adequate Anesthetic Complications: no major complications apparent
--- NOTE | 2022-11-06 16:06 | Hospitalist Progress Note ---
Date of Service November 06, 2022 Assessment & Plan (1) Atrial fibrillation with RVR: (2) Esophageal carcinoma: Plan 72-year-old lady with PMH of CAD status post CABG and status post stent, PAF on Eliquis, CM [EF 55 to 60% on TTE 2017], PVD, TIA, HTN, HLD, Williamson's esophagus, recent diagnosis of esophageal adenocarcinoma 09/03/22, prediabetes, chronic anemia [baseline hemoglobin 9-10], ongoing tobacco abuse presented to our ED 09/17 with complaint of SVT, Nausea and vomiting. Of note, during recent EGD/EUS attempt on Oct 17, she had SVT and procedure aborted. She was off of metoprolol for 2 days. She was in oncology office on the day of arrival where she vomited/nauseous and went in SVT; hence presented to ED. She is being managed for the following: Nausea/vomiting Recent diagnosis of esophageal carcinoma: follows dr De Leon and dr Ni; consul t radiation oncology. Gastritis and esophagitis Lower GI bleed: BRBPR w/ stool 11/01, f/u HnH, holding aspirin and eliquis, await GI recs. Patient had episode of nausea and vomiting at oncology office on the day of arrival [see above] Diagnosed with esophageal adenocarcinoma 09/03/2022, was undergoing EGD/EUS on October 17 as part of onco w/u which was aborted due to SVT. Pt follows Dr. De Leon and Dr. Ni. Pt continues to smoke, pt has recurrent nausea and vomiting. Admitting CTAP: 1. The partially visualized distal esophagus/gastric pull-through is markedly thick walled and edematous. This could represent a severe gastritis/esophagitis or possibly a mass lesion. Clinical correlation will be required and endoscopy could be considered for further assessment. 2. There is a 12 mm focal outpouching of the distal esophagus/gastric pull- through versus necrotic paraesophageal lymph node. 3. Trace right pleural effusion with associated pleural thickening. This was also seen in 2016. 4. No acute infectious or inflammatory findings are identified in the abdomen or pelvis. 11/04 EUS: Distal esophageal circumferential malignancy staged T3 N0 Mx by endosonographic criteria. Patient is very high risk for massive upper GI bleeding if she is using anticoagulation due to ongoing blood oozing of the large esophageal cancer. 11/06 EGD scope: Obstructing/malignant esophageal tumor in the lower third of the esophagus. Esophageal stent placed. For Nausea/vomiting: zofran as needed, slippery small freq meals, Pedialytes solution by bedside, c/w PPI, Per GI after esophageal stent, clear liquid diet for 2 days then advance as tolerated to full liquid diet for 2 days then follow-up post distended special diet. Follow antireflux regimen, Protonix 40 Mg daily. Patient can use low- dose ASA. Discussed with cardiology 11/05, will hold Eliquis and aspirin indefinitely due to patient's high risk submassive upper GI bleed.--> Continue to monitor and replete electrolytes, continue with normal saline until patient able to eat. Radiation oncology consulted, ongoing evaluation, appreciate. Pt will need to maintain f/u w/ her OP oncology team. Dehydration/Concern for infection or sepsis POA: 2/2 to vomiting [employer] on the background of decreased appetite d/t underlying esophageal Ca. All three cell lines elevated at presentation, came down w/ iv hydration, Pt was started on Zosyn 10/31 for possible infection, procal neg 11/01, pt afebrile, zosyn DC'd. UA wnl. CXR no acute process. Monitor off Atb. Repeat Bl Cx [id number]. Blood culture +ve, likely contaminant:Positive blood culture / on 10/31 draw, repeated 11/01; serology positive for epidermidis, likely contaminant, WBC coming down, pt afebrile, follow clinically and repeat Bl Cx - no growth 48 hours. Likely demand ischemia secondary to tachycardia SVT/ Afib RVR Pt presented w/ SVT, trop elevated, pt w/ no chest pain Likely demand ischemia, continue tele, pt has h/o orthostatic hypotension --> slow transition between position changes, pt aware. 09/18/2022 echo: EF 60 to 65%, grade 2 diastolic dysfunction. Moderate concentric LVH. Patient again with SVT and A. fib RVR in the a.m. of 11/05/2022, status post IV adenosine x2, IV metoprolol 5 mg x 1, IV amiodarone 150 Mg bolus followed by amiodarone drip and finally conversion to sinus rhythm and about half an hour after treatment. Continue with IV fluid, continue with amiodarone drip, plan to transition to p.o. amiodarone on Thursday after cardiology evaluation c/w metoprolol. Cardio on board. Monitor and replete electrolytes. Hold Eliquis and aspirin indefinitely [see above] Other chronic medical conditions:CAD status post CABG/stent, PVD, PAF on Eliquis, CM, TIA, HTN, HLD, Williamson's esophagus, chronic anemia, prediabetes, ongoing tobacco abuse --->> continue with/resume home meds as and when able. DVT prophylaxis: SCDs Full code 11/05/2022: Patient's Sae was given a phone call and given a detailed update on code purple and other ongoing management and need to hold her Eliquis/aspirin. He voiced understanding. All his questions were answered to his satisfaction. Admission and Anticipated Discharge Date Admission Date: October 31, 2022 Subjective Patient seen and examined at bedside as a follow-up of supraventricular tachycardia and A. fib with RVR, nausea and vomiting on the background of recent diagnosis of esophageal carcinoma, possible sepsis. Charts reviewed, labs reviewed. Patient was lying in bed, on room air, NAD, had svt f/b afib rvr for 30 min in am of 11/05, on amiodaron drip, pt npo for esophageal dilatation today, Patient denied any chest pain or feeling of heart racing, patient denies any headache or dizziness, denies other review of symptoms. Pt reports having fresh blood in stool 11/01 but no stool since 11/02. Pt denies pain or feverish feeling.Sinus rhythm overnight in tele. Physical Exam Physical Exam: GENERAL: Alert and oriented x3. NAD, on RA. Appears ill and frail and weak. HEENT: No pallor, no icterus. Pupils equal, round and reactive to light. Oral mucosa moist. NECK: No JVD, no neck masses. HEART: S1 and S2 heard. regular rate and rhythm. No murmur, no gallop. RESPIRATORY SYSTEM: Normal AP diameter. No accessory muscle use. No wheezing, no crackles. ABDOMEN: Soft, bowel sounds present, nontender, no distention. CENTRAL NERVOUS SYSTEM: No facial droop. Speech is clear. Obeys simple commands. Moves extremities. EXTREMITIES: No edema, no erythema seen. Results & Data Results & Data ([facility]) Vital Signs (Past 12 Hours) Vital Signs Temp Pulse Resp BP Pulse Ox O2 Del Method O2 Del Method 11/06/22 15:20 100 H 18 136/79 99 Room Air 11/06/22 15:05 36.6 C 101 H 18 149/85 H 96 Room Air 11/06/22 14:58 36.8 C 104 H 18 152/84 H 96 Room Air 11/06/22 14:25 105 H 20 154/82 H 96 Room Air 11/06/22 14:15 106 H 18 147/76 H 96 Room Air 11/06/22 14:06 37.0 C 104 H 21 160/77 H 100 Oxymask 11/06/22 12:26 37.1 C 76 20 115/59 L 97 Room Air 11/06/22 12:04 36.5 C 62 17 131/78 99 Room Air 11/06/22 08:00 Room Air 11/06/22 11:42 36.9 C 64 18 92/53 L 99 Room Air 11/06/22 07:42 36.8 C 72 17 119/73 94 Room Air O2 Flow Rate 11/06/22 15:20 11/06/22 15:05 11/06/22 14:58 11/06/22 14:25 11/06/22 14:15 11/06/22 14:06 5 11/06/22 12:26 11/06/22 12:04 11/06/22 08:00 11/06/22 11:42 11/06/22 07:42
[2022-11-06] MEDS: rOPINIRole HCL 0.25 MG TABLET PO SCH (20:17)
[2022-11-06] MEDS: MIRTAZAPINE TAB 15 MG TAB PO SCH (20:18)
[2022-11-06] MEDS: ATORVASTATIN 40 MG TAB PO SCH (20:18)
[2022-11-06] MEDS: traZODone HCL 50 MG TAB PO SCH (20:21)
[2022-11-06] MEDS: ACETAMINOPHEN 325 MG TAB PO PRN (20:21)
[2022-11-07] MEDS: AMIODARONE / D5W 360 MG/200 ML BAG IV SCH (05:03)
[2022-11-07 08:15] LABS: BUN Creatinine Ratio 13.6 (10-20); Calcium 7.8 mg/dl (8.5-10.1); Est GFR (African American) 116.9 ml/min; Est GFR (Non-African American) 100.8 ml/min; Potassium 3.8 mmol/L (3.5-5.1)
[2022-11-07 08:20] LABS: Hematocrit (blood only) 30.7 % (34.1-44.9); Hemoglobin 10.2 g/dl (12.0-16.0); Mean Corpuscular Hemoglobin 29.6 pg (25.0-34.0); Mean Corpuscular Hgb Conc 33.2 g/dL (32.0-36.0); Mean Platelet Volume 9.5 fL (9.4-12.3); Platelet Count 348 K/uL (130-400); RDW Coefficient of Variation 14.6 % (11.5-14.5); RDW Standard Deviation 47.4 fL (36.4-46.3); Red Blood Count 3.45 M/uL (3.93-5.22)
--- NOTE | 2022-11-07 08:46 | Gastroenterology Progress Note ---
Date of Service November 07, 2022 Assessment & Plan (1) Esophageal carcinoma: Plan This is a 72-year-old female with extensive cardiac history including recurrent PSVT, with esophageal adenocarcinoma. EGD/EUS 11/04/22 showed a distal circumferential esophageal mass extending from 30->38 cm; she was not able to tolerate her diet/hardly any liquids and pt underwent EGD for esophageal stent placement yesterday 11/06/22. Though she reported some hematochezia several days ago, this has not recurred and HGB remains at baseline. She is c/o mild epigastric tenderness that began this AM. On exam, soft abd; mild TTP epigastrium. CXR w/ stent in place, no acute changes, no pneumothorax. Discomfort may stem from stent placement and would expect this should improve. - Clear liquid diet for 2 days, then full liquid diet for 2 days, then follow post stent special diet. This was discussed with the pt and her nurse; stent diet packet given to pt at bedside - Use Pantoprazole 40 mg PO daily - Can use low dose ASA, but pt is very high risk for massive upper GI bleeding i f she is uses other anticoagulation such as Eliquis due to ongoing blood oozing of the large esophageal cancer. - Follow up with Oncology to start treatment - Monitor and document GI output - Trend H&H, transfuse PRN Thank you for allowing us to participate in the care of this patient. Please call with any acute changes, questions or concerns. Please see addendum below with additional recommendation from my supervising physician. Admission and Anticipated Discharge Date Admission Date: October 31, 2022 Supervising Physician Co-Signing Physician Notes I have discussed the patient's management with the advanced practitioner. Pl ease refer to the nurse practitioner's note for the documented findings and plan of care. CXR reviewed, no pathology, stent in place, her discomfort is likely from stent expansion. She should go home soon to follow up with Oncology as OP and start treatment for her cancer. Recall GI if needed. Subjective Patient seen and examined, chart reviewed. No acute events overnight. Pt c/o epigastric discomfort this AM; feels like an ache; not severe. Tolerating water; she doesn't like the broth and she doesn't want it; she wants cream of wheat. No nausea, vomiting, hematemesis, melena, hematochezia. She is passing flatus; no BM today. No CP, SOB, palpitations. Review of Systems Review of Systems: All systems reviewed & are unremarkable except as noted in HPI & below Physical Exam Constitutional: WD/WN, vitals as above (+ chronically ill) Eyes: PERRL, conjunctivae normal, anicteric sclerae Respiratory: normal respiratory effort, lungs clear to auscultation Cardiovascular: RRR, no murmur, no edema Gastrointestinal (Abdomen): BS x 4 quadrants; abd soft, midl TTP to the epigastrium without rebound, guarding, distention Skin: no rashes, warm and dry Psychiatric: A+Ox3, euthymic affect Results & Data ([facility]) Vital Signs (Past 12 Hours) Vital Signs Temp Pulse Pulse Resp BP Pulse Ox O2 Del Method 11/07/22 08:00 36.8 C 76 18 123/75 97 Room Air 11/07/22 03:08 36.6 C 77 18 134/75 97 Room Air 11/07/22 00:00 81 11/06/22 23:07 36.7 C 74 18 120/72 97 Room Air Laboratory Results 11/07/22 11/07/22 11/07/22 Range/Units 07:55 06:56 06:56 WBC 13.00 H Cancelled RBC 3.45 L Cancelled Hgb 10.2 L Cancelled Hct 30.7 L Cancelled MCV 89.0 Cancelled MCH 29.6 Cancelled MCHC 33.2 Cancelled RDW Std Deviation 47.4 H Cancelled RDW Coeff of Cassi 14.6 H Cancelled Plt Count 348 Cancelled MPV 9.5 Cancelled Absolute Nucleated RBC Cancelled Nucleated RBC % (auto) Cancelled Platelet Estimate Cancelled Sodium 134 L (136-145) mmol/L Potassium 3.8 (3.5-5.1) mmol/L Chloride 100 (98-107) mmol/L Carbon Dioxide 28 (21-32) mmol/L Anion Gap 6 (3-11) BUN 6 (6-23) mg/dl Creatinine 0.44 L (0.6-1.2) mg/dl Est Cr Clr Drug Dosing 104.0 ml/min Est GFR ( Amer) 116.9 ml/min Est GFR (Non-Af Amer) 100.8 ml/min BUN/Creatinine Ratio 13.6 (10-20) Glucose 105 H (70-99(Fasting)) mg/dl POC Glucose (70-99) mg/dl Calcium 7.8 L (8.5-10.1) mg/dl 11/06/22 Range/Units 12:47 WBC RBC Hgb Hct MCV MCH MCHC RDW Std Deviation RDW Coeff of Cassi Plt Count MPV Absolute Nucleated RBC Nucleated RBC % (auto) Platelet Estimate Sodium (136-145) mmol/L Potassium (3.5-5.1) mmol/L Chloride (98-107) mmol/L Carbon Dioxide (21-32) mmol/L Anion Gap (3-11) BUN (6-23) mg/dl Creatinine (0.6-1.2) mg/dl Est Cr Clr Drug Dosing ml/min Est GFR ( Amer) ml/min Est GFR (Non-Af Amer) ml/min BUN/Creatinine Ratio (10-20) Glucose (70-99(Fasting)) mg/dl POC Glucose 102 H (70-99) mg/dl Calcium (8.5-10.1) mg/dl Diagnostic Findings CXR: Cardiac silhouette is enlarged. Prior median sternotomy. Right IJ Vldhvp-e-Asri catheter is again noted with distal tip in the expected location of the mid SVC. Pulmonary emphysema with chronic interstitial coarsening. Chronic blunting of the costophrenic angles is noted along with linear scarring of the right midlung and right lung base. Trace right pleural effusion. Prior gastric pull-through with stent. Degenerative changes of the shoulders and spine. Cervical spinal fusion hardware. Postoperative changes of the left lung apex. Atherosclerosis of the aorta. IMPRESSION: 1. Emphysema with chronic interstitial coarsening. 2. Trace right pleural effusion again noted. 3. Gastric pull-through with stent. 4. No pneumothorax. EGD 11/06/22: Obstructing, malignant esophageal tumor was found in the lower third of the esophagus. Esophageal stent placed
[2022-11-07] MEDS: CYANOCOBALAMIN (B-12) 500 MCG TABLET PO SCH (09:06)
[2022-11-07] MEDS: FERROUS SULFATE 325 MG TAB PO SCH (09:06)
[2022-11-07] MEDS: DULoxetine HCL 30 MG CAP PO SCH (09:06)
[2022-11-07] MEDS: MAGNESIUM OXIDE 400 MG TAB PO SCH (09:06)
[2022-11-07] MEDS: CHOLECALCIFEROL 1,000 UNITS 25 MCG TAB PO SCH (09:06)
[2022-11-07] MEDS: PANTOprazole 40 MG in SYRINGE 0 ML IV SCH ×2 (09:06→20:06)
[2022-11-07] MEDS: UMECLIDINIUM BROMIDE 62.5MCG/BLISTER 7 PUFFS/INHALER INH SCH ×2 (09:07→09:10)
[2022-11-07] MEDS: FLUTICASONE FUROATE 200MCG 14 PUFFS/INHALER INH SCH ×2 (09:07→09:09)
--- NOTE | 2022-11-07 09:34 | XRay Report ---
XR chest 1V portable HISTORY: 72 years-old Female epigastric discomfort, s/p esophgeal stent 11/06 acute epigastric abdomi nal pain COMPARISON: Chest radiograph and CTA chest 10/31/2022 TECHNIQUE: AP view of the chest FINDINGS: Cardiac silhouette is enlarged. Prior median sternotomy. Right IJ Esiutm-e-Iclw catheter is again not ed with distal tip in the expected location of the mid SVC. Pulmonary emphysema with chronic intersti tial coarsening. Chronic blunting of the costophrenic angles is noted along with linear scarring of t he right midlung and right lung base. Trace right pleural effusion. Prior gastric pull-through with s tent. Degenerative changes of the shoulders and spine. Cervical spinal fusion hardware. Postoperative changes of the left lung apex. Atherosclerosis of the aorta. IMPRESSION: 1. Emphysema with chronic interstitial coarsening. 2. Trace right pleural effusion again noted. 3. Gastric pull-through with stent. 4. No pneumothorax. ACT 112: Negative or not required by law. The above report was generated using voice recognition software. It may contain grammatical, syntax o r spelling errors. Electronically signed by: Kevin Isbell M.D. 11/07/2022 9:32 AM
[2022-11-07] MEDS: NICOTINE 21 MG/24 HR TDSY TD SCH (11:30)
[2022-11-07] MEDS: METOPROLOL SUCC 50MG EXT REL TAB PO SCH (11:30)
--- NOTE | 2022-11-07 11:58 | Hospitalist Progress Note ---
Date of Service November 07, 2022 Assessment & Plan (1) Atrial fibrillation with RVR: (2) Esophageal carcinoma: Plan 72-year-old lady with PMH of CAD status post CABG and status post stent, PAF on Eliquis, CM [EF 55 to 60% on TTE 2017], PVD, TIA, HTN, HLD, Williamson's esophagus, recent diagnosis of esophageal adenocarcinoma 09/03/22, prediabetes, chronic anemia [baseline hemoglobin 9-10], ongoing tobacco abuse presented to our ED 09/17 with complaint of SVT, Nausea and vomiting. Of note, during recent EGD/EUS attempt on Oct 17, she had SVT and procedure aborted. She was off of metoprolol for 2 days. She was in oncology office on the day of arrival where she vomited/nauseous and went in SVT; hence presented to ED. She is being managed for the following: Nausea/vomiting Recent diagnosis of esophageal carcinoma: follows dr De Leon and dr Ni; consul t radiation oncology. Gastritis and esophagitis Lower GI bleed: BRBPR w/ stool 11/01, f/u HnH, holding aspirin and eliquis, await GI recs. Patient had episode of nausea and vomiting at oncology office on the day of arrival [see above] Diagnosed with esophageal adenocarcinoma 09/03/2022, was undergoing EGD/EUS on October 17 as part of onco w/u which was aborted due to SVT. Pt follows Dr. De Leon and Dr. Ni. Pt continues to smoke, pt has recurrent nausea and vomiting. Admitting CTAP: 1. The partially visualized distal esophagus/gastric pull-through is markedly thick walled and edematous. This could represent a severe gastritis/esophagitis or possibly a mass lesion. Clinical correlation will be required and endoscopy could be considered for further assessment. 2. There is a 12 mm focal outpouching of the distal esophagus/gastric pull- through versus necrotic paraesophageal lymph node. 3. Trace right pleural effusion with associated pleural thickening. This was also seen in 2016. 4. No acute infectious or inflammatory findings are identified in the abdomen or pelvis. 11/04 EUS: Distal esophageal circumferential malignancy staged T3 N0 Mx by endosonographic criteria. Patient is very high risk for massive upper GI bleeding if she is using anticoagulation due to ongoing blood oozing of the large esophageal cancer. 11/06 EGD scope: Obstructing/malignant esophageal tumor in the lower third of the esophagus. Esophageal stent placed. For Nausea/vomiting: zofran as needed, slippery small freq meals, Pedialytes solution by bedside, c/w PPI, Per GI after esophageal stent, clear liquid diet for 2 days from 11/06 evening then advance as tolerated to full liquid diet for 2 days then follow-up post stent special diet. Follow antireflux regimen, Protonix 40 Mg daily. Patient can use low-dose ASA. Eliquis on hold indefinitely due to patient's high risk submassive upper GI bleed.--> aspirin restarted w/ GI clearance, d/w cardio. Continue to monitor and replete electrolytes, continue with normal saline until patient able to eat properly. Radiation oncology consulted, ongoing evaluation, appreciate. Pt will need to maintain f/u w/ her OP oncology team. Dehydration/Concern for infection or sepsis POA: 2/2 to vomiting [employer] on the background of decreased appetite d/t underlying esophageal Ca. All three cell lines elevated at presentation, came down w/ iv hydration, Pt was started on Zosyn 10/31 for possible infection, procal neg 11/01, pt afebrile, zosyn DC'd. UA wnl. CXR no acute process. Monitor off Atb. Repeat Bl Cx [id number] Blood culture +ve, likely contaminant:Positive blood culture 2/4 on 10/31 draw, repeated 11/01; serology positive for epidermidis, likely contaminant, WBC coming down, pt afebrile, follow clinically and repeat Bl Cx - no growth 5days. Likely demand ischemia secondary to tachycardia SVT/ Afib RVR Pt presented w/ SVT, trop elevated, pt w/ no chest pain Likely demand ischemia, continue tele, pt has h/o orthostatic hypotension --> slow transition between position changes, pt aware. 09/18/2022 echo: EF 60 to 65%, grade 2 diastolic dysfunction. Moderate concentric LVH. Patient again with SVT and A. fib RVR in the a.m. of 11/05/2022, status post IV adenosine x2, IV metoprolol 5 mg x 1, IV amiodarone 150 Mg bolus followed by amiodarone drip and finally conversion to sinus rhythm and about half an hour after treatment. Continue with IV fluid, continue with amiodarone drip--> d/w cardio, transition to PO amio 200 mg bid today, pt will need to f/u w/ cardio as OP in 1-2 weeks upon DC for ongoing amiodarone Mx. c/w metoprolol. Cardio on board. Monitor and replete electrolytes. Hold Eliquis indefinitely. Other chronic medical conditions:CAD status post CABG/stent, PVD, PAF on Eliquis, CM, TIA, HTN, HLD, Williamson's esophagus, chronic anemia, prediabetes, ongoing tobacco abuse --->> continue with/resume home meds as and when able. DVT prophylaxis: SCDs Full code 11/05/2022: Patient's Sae was given a phone call and given a detailed update on code purple and other ongoing management and need to hold her E liquis/aspirin. He voiced understanding. All his questions were answered to his satisfaction. Admission and Anticipated Discharge Date Admission Date: October 31, 2022 Subjective Patient seen and examined at bedside as a follow-up of supraventricular tachycardia and A. fib with RVR, nausea and vomiting on the background of recent diagnosis of esophageal carcinoma, possible sepsis. Charts reviewed, labs reviewed. Patient was lying in bed, on room air, NAD, had svt f/b afib rvr for 30 min in am of 11/05, on amiodaron drip to be transitioned to PO amio today, Pt on liquid diet from 11/06 evening after esophageal dilatation 11/06 for 2 days then full liq diet for 2 days then stent diet, pt reports some epigastric discomfort but bearable, will follow. Patient denied any chest pain or feeling of heart racing, patient denies any headache or dizziness, denies other review of symptoms. Pt reports having fresh blood in stool 11/01 but no stool since 11/02. Pt denies pain or feverish feeling.Sinus rhythm overnight in tele. Physical Exam Physical Exam: GENERAL: Alert and oriented x3. NAD, on RA. Appears ill and frail and weak. HEENT: No pallor, no icterus. Pupils equal, round and reactive to light. Oral mucosa moist. NECK: No JVD, no neck masses. HEART: S1 and S2 heard. regular rate and rhythm. No murmur, no gallop. RESPIRATORY SYSTEM: Normal AP diameter. No accessory muscle use. No wheezing, no crackles. ABDOMEN: Soft, bowel sounds present, nontender, no distention. CENTRAL NERVOUS SYSTEM: No facial droop. Speech is clear. Obeys simple commands. Moves extremities. EXTREMITIES: No edema, no erythema seen. Results & Data Results & Data ([facility]) Vital Signs (Past 12 Hours) Vital Signs Temp Pulse Pulse Resp BP Pulse Ox O2 Del Method 11/07/22 11:43 36.5 C 87 16 139/83 95 Room Air 11/07/22 08:00 36.8 C 76 18 123/75 97 Room Air 11/07/22 03:08 36.6 C 77 18 134/75 97 Room Air 11/07/22 00:00 81
[2022-11-07] MEDS: AMIODARONE 200 MG TAB PO SCH ×2 (14:06→18:20)
--- NOTE | 2022-11-07 15:22 | Cardiology Progress Note ---
Date of Service November 07, 2022 Assessment & Plan (1) Paroxysmal atrial fibrillation: Plan: -atrial fibrillation with a rapid ventricular response, 11/05, was poorly tolerated. -converted to sinus rhythm on intravenous amiodarone. -which change to amiodarone 200 mg b.i.d. x1 month, then 200 mg daily. -continue metoprolol succinate. -Eliquis currently on hold due to high likelihood of a series upper GI bleed. (2) PSVT (paroxysmal supraventricular tachycardia): Plan: -likely an AV nicolette reentrant tachycardia. -experienced an episode, 11/05,which was poorly tolerated but converted with IV adenosine. -as above, continue amiodarone. (3) Coronary artery disease: Plan: -CABG x2 in April 2010. -LCx THOMAS in January 2015. -quiescent on medical management. (4) HTN (hypertension): Plan: -adequate control on current regimen. (5) Hyperlipidemia: Plan: -continue atorvastatin. Admission and Anticipated Discharge Date Admission Date: October 31, 2022 Subjective The patient is resting comfortably in bed without complaints of chest pain, dyspnea, or palpitations. Physical Exam Physical Exam: In general is well-developed well-nourished white female no acute distress. HEENT exam is negative. Neck is supple with full carotid upstrokes. No carotid bruits. No JVD. There is no thyromegaly. Cardi ovascular exam reveals a regular rhythm with a normal S1 and S2. Heart sounds are distant. No obvious murmurs. Lungs note distant breath sounds throughout but no rales, rhonchi, or wheezes. Abdomen is soft without bruits. Extremities reveal intact radial artery pulses bilaterally. There is no peripheral edema. 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 No atrial fibrillation or SVT since Thursday. PG Care Time/CCT Total # of Minutes Spent Total Time Spent with Patient: Total time spent is greater than 50% in coordination of care (as documented) at patient's floor/unit and/or counseling patient: Coding Level of Care Code 70699 Subseq Hosp Care Lvl 3 Diagnoses Paroxysmal atrial fibrillation I48.0 PSVT (paroxysmal supraventricular tachycardia) I47.1 Coronary artery disease I25.10 HTN (hypertension) I10 Hyperlipidemia E78.5
[2022-11-07] MEDS ORDERED: AMIODARONE HCL INJ 50 MG/ML 3 ML VIAL IV ONE (18:43)
[2022-11-07] MEDS ORDERED: SODIUM CHLORIDE 0.9% 10ML FLUSH IV ONE (18:43)
[2022-11-07] MEDS: ATORVASTATIN 40 MG TAB PO SCH (20:05)
[2022-11-07] MEDS: traZODone HCL 50 MG TAB PO SCH (20:05)
[2022-11-07] MEDS: rOPINIRole HCL 0.25 MG TABLET PO SCH (20:05)
[2022-11-07] MEDS: MIRTAZAPINE TAB 15 MG TAB PO SCH (20:06)
[2022-11-07] MEDS: HEPARIN 100 UNIT/ML 5ML FLUSH FLUSH PRN (20:10)
[2022-11-08] MEDS ORDERED: ALUMINUM/MAGNESIUM/SIMETH (MAALOX MAX) 30 ML UDC PO PRN (04:10)
[2022-11-08 08:29] LABS: Hematocrit (blood only) 31.9 % (34.1-44.9); Hemoglobin 10.6 g/dl (12.0-16.0); Mean Corpuscular Hemoglobin 29.4 pg (25.0-34.0); Mean Corpuscular Hgb Conc 33.2 g/dL (32.0-36.0); Mean Corpuscular Volume 88.6 fL (80.0-100.0); Mean Platelet Volume 9.5 fL (9.4-12.3); Platelet Count 347 K/uL (130-400); RDW Coefficient of Variation 13.8 % (11.5-14.5); RDW Standard Deviation 44.7 fL (36.4-46.3); White Blood Count 15.66 K/ul (4.8-10.8)
[2022-11-08] MEDS: PANTOprazole 40 MG in SYRINGE 0 ML IV SCH ×2 (08:43→21:22)
[2022-11-08] MEDS: METOPROLOL SUCC 50MG EXT REL TAB PO SCH (08:43)
[2022-11-08] MEDS: MAGNESIUM OXIDE 400 MG TAB PO SCH (08:43)
[2022-11-08] MEDS: NICOTINE 21 MG/24 HR TDSY TD SCH (08:43)
[2022-11-08] MEDS: FERROUS SULFATE 325 MG TAB PO SCH (08:43)
[2022-11-08] MEDS: AMIODARONE 200 MG TAB PO SCH ×2 (08:44→17:45)
[2022-11-08] MEDS: FLUTICASONE FUROATE 200MCG 14 PUFFS/INHALER INH SCH (08:44)
[2022-11-08] MEDS: DULoxetine HCL 30 MG CAP PO SCH (08:44)
[2022-11-08] MEDS: CYANOCOBALAMIN (B-12) 500 MCG TABLET PO SCH (08:44)
[2022-11-08] MEDS: CHOLECALCIFEROL 1,000 UNITS 25 MCG TAB PO SCH (08:44)
[2022-11-08 08:47] LABS: Calcium 7.6 mg/dl (8.5-10.1); Creatinine Clr Calc Pharmacy 91.5 ml/min; Est GFR (African American) 112.1 ml/min; Est GFR (Non-African American) 96.7 ml/min; Magnesium 1.9 mg/dl (1.7-2.4); Phosphorus 3.7 mg/dl (2.5-4.9); Potassium 4.1 mmol/L (3.5-5.1)
[2022-11-08] MEDS: UMECLIDINIUM BROMIDE 62.5MCG/BLISTER 7 PUFFS/INHALER INH SCH (08:50)
[2022-11-08] MEDS: ONDANSETRON INJ 2 MG/ML 2 ML VIAL IV PRN (08:50)
[2022-11-08] MEDS: ASPIRIN 81 MG ECTAB PO SCH (08:51)
[2022-11-08] MEDS ORDERED: FAMOTIDINE SUSP 20 MG/2.5 ML UDP PO SCH (09:00)
--- NOTE | 2022-11-08 10:38 | Hospitalist Progress Note ---
Date of Service November 08, 2022 Assessment & Plan (1) Atrial fibrillation with RVR: (2) Esophageal carcinoma: Plan 72-year-old lady with PMH of CAD status post CABG and status post stent, PAF on Eliquis, CM [EF 55 to 60% on TTE 2017], PVD, TIA, HTN, HLD, Williamson's esophagus, recent diagnosis of esophageal adenocarcinoma 09/03/22, prediabetes, chronic anemia [baseline hemoglobin 9-10], ongoing tobacco abuse presented to our ED 09/17 with complaint of SVT, Nausea and vomiting. Of note, during recent EGD/EUS attempt on Oct 17, she had SVT and procedure aborted. She was off of metoprolol for 2 days. She was in oncology office on the day of arrival where she vomited/nauseous and went in SVT; hence presented to ED. She is being managed for the following: Nausea/vomiting Recent diagnosis of esophageal carcinoma: follows dr De Leon and dr Ni; consu lt radiation oncology. Gastritis and esophagitis Lower GI bleed: BRBPR w/ stool 11/01, f/u HnH, holding aspirin and eliquis, await GI recs. Patient had episode of nausea and vomiting at oncology office on the day of arrival [see above] Diagnosed with esophageal adenocarcinoma 09/03/2022, was undergoing EGD/EUS on October 17 as part of onco w/u which was aborted due to SVT. Pt follows Dr. De Leon and Dr. Ni. Pt continues to smoke, pt has recurrent nausea and vomiting. Admitting CTAP: 1. The partially visualized distal esophagus/gastric pull-through is markedly thick walled and edematous. This could represent a severe gastritis/esophagitis or possibly a mass lesion. Clinical correlation will be required and endoscopy could be considered for further assessment. 2. There is a 12 mm focal outpouching of the distal esophagus/gastric pull- through versus necrotic paraesophageal lymph node. 3. Trace right pleural effusion with associated pleural thickening. This was also seen in 2016. 4. No acute infectious or inflammatory findings are identified in the abdomen or pelvis. 11/04 EUS: Distal esophageal circumferential malignancy staged T3 N0 Mx by endosonographic criteria. Patient is very high risk for massive upper GI bleeding if she is using anticoagulation due to ongoing blood oozing of the large esophageal cancer. 11/06 EGD scope: Obstructing/malignant esophageal tumor in the lower third of the esophagus. Esophageal stent placed. For Nausea/vomiting: zofran as needed, slippery small freq meals, Pedialytes solution by bedside, c/w PPI, Per GI after esophageal stent, clear liquid diet for 2 days from 11/06-11/08 evening then advance as tolerated to full liquid diet for 2 days then follow-up post stent special diet. Follow antireflux regimen, Protonix 40 Mg daily. Patient can use low-dose ASA - to start 11/09/2022 Eliquis on hold indefinitely due to patient's high risk submassive upper GI bleed.--> aspirin restarted w/ GI clearance, d/w cardio - will start ASA 11/09/2022 Continue to monitor and replete electrolytes, continue with normal saline until patient able to eat properly. Radiation oncology consulted, ongoing evaluation, appreciate. Pt will need to maintain f/u w/ her OP oncology team. Dehydration/Concern for infection or sepsis POA: 2/2 to vomiting [employer] on the background of decreased appetite d/t underlying esophageal Ca. All three cell lines elevated at presentation, came down w/ iv hydration, Pt was started on Zosyn 10/31 for possible infection, procal neg 11/01, pt afebrile, zosyn DC'd. UA wnl. CXR no acute process. Monitor off Atb. Repeat Bl Cx [id number] Blood culture +ve, likely contaminant:Positive blood culture 2/4 on 10/31 draw, repeated 11/01; serology positive for epidermidis, likely contaminant, WBC coming down, pt afebrile, follow clinically and repeat Bl Cx - no growth 5days. Likely demand ischemia secondary to tachycardia SVT/ Afib RVR Pt presented w/ SVT, trop elevated, pt w/ no chest pain Likely demand ischemia, continue tele, pt has h/o orthostatic hypotension --> slow transition between position changes, pt aware. 09/18/2022 echo: EF 60 to 65%, grade 2 diastolic dysfunction. Moderate concentric LVH. Patient again with SVT and A. fib RVR in the a.m. of 11/05/2022, status post IV adenosine x2, IV metoprolol 5 mg x 1, IV amiodarone 150 Mg bolus followed by amiodarone drip and finally conversion to sinus rhythm and about half an hour after treatment. Continue with IV fluid, continue with amiodarone drip--> d/w cardio, transition to PO amio 200 mg bid today, pt will need to f/u w/ cardio as OP in 1-2 weeks upon DC for ongoing amiodarone Mx. c/w metoprolol. Cardio on board. Monitor and replete electrolytes. Hold Eliquis indefinitely. Other chronic medical conditions:CAD status post CABG/stent, PVD, PAF on Eliquis, CM, TIA, HTN, HLD, Williamson's esophagus, chronic anemia, prediabetes, ongoing tobacco abuse --->> continue with/resume home meds as and when able. DVT prophylaxis: SCDs Full code Admission and Anticipated Discharge Date Admission Date: October 31, 2022 Subjective Patient with CAD s/p CABG and stenting, PAF on Eliquis, PVD, h/o TIA, HLD, Williamson's esophagus with recent diagnosis of esophageal adenocarcinoma 08/2022 presented with SVT, seen by Cardiology with addition of amiodarone and metoprolol with good rate control and converted NSR. Also s/p GE junction stent placement by GI, advancing diet as tolerated; clear liquid diet x2 days --> full liquid diet x2 days --> esophageal stent diet and follow up with GI outpatient. Currently on IV PPI BID and IV Pepcid BID for GERD symptoms. Patient reporting a lot of reflux symptoms and abdominal pain this morning. Had clear liquid diet 11/07/2022 but does not feel like eating today due to abdominal pain and reflux. Denies chest pain, shortness of breath, n/v/d, cough, fever or chills. Review of Systems Review of Systems: All systems reviewed & are unremarkable except as noted in Subjective Physical Exam Physical Exam: GENERAL: Alert and oriented x3. NAD, on RA. Appears ill and frail and weak HEENT: No pallor, no icterus. Pupils equal, round and reactive to light. Oral mucosa moist. NECK: No JVD, no neck masses. HEART: S1 and S2 heard. regular rate and rhythm. No murmur, no gallop. RESPIRATORY SYSTEM: Normal AP diameter. No accessory muscle use. No wheezing, no crackles. ABDOMEN: Soft, bowel sounds present, nontender, no distention. CENTRAL NERVOUS SYSTEM: No facial droop. Speech is clear. Obeys simple commands. Moves extremities. EXTREMITIES: No edema, no erythema seen. Results & Data Results & Data ([facility]) Vital Signs (Past 12 Hours) Vital Signs Temp Pulse Resp BP Pulse Ox O2 Del Method 11/08/22 08:09 36.6 C 70 17 115/53 L 95 Room Air 11/08/22 04:30 36.6 C 89 16 122/79 95 Room Air 11/07/22 23:02 36.8 C 78 18 113/65 93 Room Air Diagnostic Findings Laboratory Results WBC 15.66 K/ul (4.8-10.8) H 11/08/22 08:18 RBC 3.60 M/uL (3.93-5.22) L 11/08/22 08:18 Hgb 10.6 g/dl (12.0-16.0) L 11/08/22 08:18 Hct 31.9 % (34.1-44.9) L 11/08/22 08:18 MCV 88.6 fL (80.0-100.0) 11/08/22 08:18 MCH 29.4 pg (25.0-34.0) 11/08/22 08:18 MCHC 33.2 g/dL (32.0-36.0) 11/08/22 08:18 RDW Std Deviation 44.7 fL (36.4-46.3) 11/08/22 08:18 RDW Coeff of Cassi 13.8 % (11.5-14.5) 11/08/22 08:18 Plt Count 347 K/uL (130-400) 11/08/22 08:18 MPV 9.5 fL (9.4-12.3) 11/08/22 08:18 Immature Gran % (Auto) 1.1 % 11/01/22 05:32 Neut % (Auto) 73.3 % 11/01/22 05:32 Lymph % (Auto) 16.2 % 11/01/22 05:32 [place] % (Auto) 8.9 % 11/01/22 05:32 Eos % (Auto) 0.3 % 11/01/22 05:32 Baso % (Auto) 0.2 % 11/01/22 05:32 Neut # (Auto) 8.03 K/uL (1.4-6.5) H 11/01/22 05:32 Lymph # (Auto) 1.78 K/uL (1.2-3.4) 11/01/22 05:32 [place] # (Auto) 0.98 K/uL (0.24-0.82) H 11/01/22 05:32 Eos # (Auto) 0.03 K/uL (0-0.50) 11/01/22 05:32 Baso # (Auto) 0.02 K/uL (0-0.2) 11/01/22 05:32 Immature Gran # (Auto) 0.12 K/uL (0.00-0.02) H 11/01/22 05:32 Absolute Nucleated RBC Cancelled 11/07/22 06:56 Nucleated RBC % (auto) Cancelled 11/07/22 06:56 Platelet Estimate Cancelled 11/07/22 06:56 PT 12.6 Seconds (9.0-12.0) H 10/31/22 14:20 INR 1.2 (0.9-1.1) H 10/31/22 14:20 APTT 34.2 Seconds (21.0-31.0) H 10/31/22 14:20 PTT Ratio 1.2 10/31/22 14:20 Sodium 134 mmol/L (136-145) L 11/08/22 08:18 Potassium 4.1 mmol/L (3.5-5.1) 11/08/22 08:18 Chloride 99 mmol/L (98-107) 11/08/22 08:18 Carbon Dioxide 30 mmol/L (21-32) 11/08/22 08:18 Anion Gap 5 (3-11) 11/08/22 08:18 BUN 6 mg/dl (6-23) 11/08/22 08:18 Creatinine 0.50 mg/dl (0.6-1.2) L 11/08/22 08:18 Est Cr Clr Drug Dosing 91.5 ml/min 11/08/22 08:18 Est GFR ( Amer) 112.1 ml/min 11/08/22 08:18 Est GFR (Non-Af Amer) 96.7 ml/min 11/08/22 08:18 BUN/Creatinine Ratio 12.0 (10-20) 11/08/22 08:18 Glucose 112 mg/dl (70-99(Fasting)) H 11/08/22 08:18 POC Glucose 102 mg/dl (70-99) H 11/06/22 12:47 Estimat Average Glucose 108 mg/dl 11/01/22 05:32 Hemoglobin A1c 5.4 % (4.5-5.6) 11/01/22 05:32 Lactate 1.1 mmol/L (0.4-2.0) 10/31/22 18:51 Calcium 7.6 mg/dl (8.5-10.1) L 11/08/22 08:18 Phosphorus 3.7 mg/dl (2.5-4.9) 11/08/22 08:18 Magnesium 1.9 mg/dl (1.7-2.4) 11/08/22 08:18 Total Bilirubin 0.4 mg/dl (0.2-1.0) 11/05/22 11:26 AST 11 U/L (13-39) L 11/05/22 11:26 ALT 7 U/L (7-52) 11/05/22 11:26 Alkaline Phosphatase 89 U/L (34-104) 11/05/22 11:26 Troponin I High Sens 14.2 pg/ml (0-14) H 11/05/22 11:26 Total Protein 4.7 gm/dl (6.0-8.3) L 11/05/22 11:26 Albumin 2.4 gm/dl (3.4-5.0) L 11/05/22 11:26 Globulin 2.3 gm/dl (2.5-4.0) L 11/05/22 11:26 Albumin/Globulin Ratio 1.0 (0.9-2) 11/05/22 11:26 Lipase 20 U/L (11-82) 10/31/22 14:20 Procalcitonin 0.12 ng/ml (0-0.5) 11/01/22 11:27 Urine Color Yellow 10/31/22 19:30 Urine Appearance Clear (Clear) 10/31/22 19:30 Urine pH 6.0 (4.5-7.5) 10/31/22 19:30 Ur Specific [place] 1.044 (1.000-1.030) H 10/31/22 19:30 Urine Protein Negative (Negative) 10/31/22 19:30 Urine Glucose (UA) Negative (Negative) 10/31/22 19:30 Urine Ketones Negative (Negative) 10/31/22 19:30 Urine Blood Negative (Negative) 10/31/22 19:30 Urine Nitrite Negative (Negative) 10/31/22 19:30 Urine Bilirubin Negative (Negative) 10/31/22 19:30 Urine Urobilinogen Negative (Negative) 10/31/22 19:30 Ur Leukocyte Esterase Negative (Negative) 10/31/22 19:30 Nasal Screen MRSA (PCR) Negative (Negative) 10/31/22 21:11 Stl C. diff Tox B Gene Negative Cdiff Gene (Neg) 11/01/22 Unknown SARS-CoV-2 (PCR) NEGATIVE (Negative) 10/31/22 14:52 Influenza Type A (PCR) Negative (Neg) 10/31/22 14:52 Influenza Type B (PCR) Negative (Neg) 10/31/22 14:52 RSV (RT-PCR) Negative (Neg) 10/31/22 14:52 SARS-CoV-2 IgG Ab Index 1.21 index (<1.00) H 10/31/22 14:20 Staphylococcus sp PCR DETECTED (NotDetected) A 10/31/22 15:29 mecA/C-Methicil Resis Gene DETECTED (NotDetected) A 10/31/22 15:29 Staph epidermidis (PCR) DETECTED (NotDetected) A 10/31/22 15:29 Bld Cult ID Panel PCR See PCR Comment (NotDetected) 10/31/22 15:29 Blood Type O Positive 11/01/22 21:28 Antibody Screen NEGATIVE 11/01/22 21:28 Impressions Abdomen/Pelvis CT 10/31/22 14:38 CT SCAN OF THE ABDOMEN AND PELVIS WITH IV CONTRAST CLINICAL HISTORY: Vomiting. COMPARISON STUDY: Abdominal CT dated scans dated 09/17/2022 and 12/23/2015. TECHNIQUE: Following the IV administration of 118 cc of Optiray 320, CT scan of the abdomen and pelvis is performed from the lung bases to the proximal femora. Images are reviewed in the axial, sagittal, and coronal planes. IV contrast was administered without complication. A dose lowering technique was utilized adhering to the principles of ALARA. CT DOSE: 629.99 mGy.cm FINDINGS: Lung bases: The patient is status post midline sternotomy. The heart is normal in size and without pericardial effusion. There is trace right pleural effusion with bibasilar scarring/atelectasis. Pleural thickening is seen at the right lung base. Postsurgical change is noted at the gastroesophageal junction with evidence of at least partial gastric pull-through. The distal esophagus/gastric pull-through is markedly thick walled and edematous. There is a 1.8 cm outpouching from the distal aspect of the distal esophagus/stomach at this level versus a necrotic paraesophageal lymph node seen on image #12. Liver: The contrast-enhanced liver is normal in size, contour, and attenuation. There is no intrahepatic biliary ductal dilatation. The hepatic veins and portal veins are patent. Gallbladder: Surgically absent and clips in the gallbladder fossa. Spleen: Normal in size and attenuation. Pancreas: Moderately atrophic and grossly unremarkable. Adrenal glands: Unremarkable. Kidneys: The contrast enhanced kidneys demonstrate mild cortical atrophy and are without hydronephrosis. There are bilateral renovascular calcifications. The kidneys enhance symmetrically. Abdominal vasculature: The abdominal aorta is normal in course and caliber noting moderate to advanced atherosclerotic calcification. Bowel: There is no bowel obstruction. Residual enteric contrast is seen throughout the colon. There is mild colonic diverticulosis without CT evidence of acute diverticulitis. The appendix is well-visualized and normal. Peritoneum: There is no intraperitoneal free air or abdominal ascites. Lymphadenopathy: None. Pelvic viscera: Evaluation of the pelvis is degraded by streak artifact from a left hip arthroplasty. The bladder is distended but otherwise normal as imaged. The uterus is surgically absent. No adnexal lesion is seen. Skeletal structures: The skeletal structures are osteopenic. The skeletal structures are osteopenic. There is an severe spondylosis with postsurgical change from L4-S1 spinal fusion. No lytic or blastic lesions are seen. A left hip arthroplasty is in place. IMPRESSION: 1. The partially visualized distal esophagus/gastric pull-through is markedly thick walled and edematous. This could represent a severe gastritis/esophagitis or possibly a mass lesion. Clinical correlation will be required and endoscopy could be considered for further assessment. 2. There is a 12 mm focal outpouching of the distal esophagus/gastric pull- through versus necrotic paraesophageal lymph node. 3. Trace right pleural effusion with associated pleural thickening. This was also seen in 2016. 4. No acute infectious or inflammatory findings are identified in the abdomen or pelvis. 5. Additional findings as above. ACT 112: Negative or not required by law. Electronically signed by: Doug Figueredo M.D. 10/31/2022 4:40 PM Chest CTA 10/31/22 15:58 CT angio chest PE protocol CLINICAL HISTORY: PE TECHNIQUE: Multidetector row helical CT of the chest was performed with angiographic protocol. Coronal and sagittal reformations were obtained. Coronal and sagittal MIPS were obtained from the axial data set and were submitted for review. Automated dose lowering techniques and/or adjustment according to patient size were utilized for this exam. Comparison: Comparison is made to chest radiograph 10/31/2022 FINDINGS: Lungs and pleura: Diffuse centrilobular emphysema is seen most prominent in the upper lobes. Atelectasis versus scarring is seen in the lungs. There is a small right pleural effusion. There is a 5 mm pulmonary nodule in the right upper lobe (series 4 image 180). Heart and pericardium: Heart size is normal. No pericardial effusion. Vessels: No evidence of pulmonary embolism. Bovine arch is noted. Mediastinum and patricia: The esophagus is markedly patulous. There is postsurgical change from esophageal resection with gastric pull-through. Chest wall and lower neck: Right port catheter is unchanged. Abdomen: For findings below the diaphragm, please refer to CT of the abdomen dated the same. Bones: Degenerative changes in the thoracic spine. IMPRESSION: 1. No evidence of pulmonary embolism. 2. Postsurgical changes of esophageal resection and gastric pull-through. 3. Additional findings as above. ACT 112: Negative or not required by law. Electronically signed by: Louie Hardy M.D. 10/31/2022 4:29 PM Chest X-Ray 11/07/22 08:46 XR chest 1V portable HISTORY: 72 years-old Female epigastric discomfort, s/p esophgeal stent 11/06 acute epigastric abdominal pain COMPARISON: Chest radiograph and CTA chest 10/31/2022 TECHNIQUE: AP view of the chest FINDINGS: Cardiac silhouette is enlarged. Prior median sternotomy. Right IJ [id number] catheter is again noted with distal tip in the expected location of the mid SVC. Pulmonary emphysema with chronic interstitial coarsening. Chronic blunting of the costophrenic angles is noted along with linear scarring of the right midlung and right lung base. Trace right pleural effusion. Prior gastric pull-through with stent. Degenerative changes of the shoulders and spine. Cervical spinal fusion hardware. Postoperative changes of the left lung apex. Atherosclerosis of the aorta. IMPRESSION: 1. Emphysema with chronic interstitial coarsening. 2. Trace right pleural effusion again noted. 3. Gastric pull-through with stent. 4. No pneumothorax. ACT 112: Negative or not required by law. The above report was generated using voice recognition software. It may contain grammatical, syntax or spelling errors. Electronically signed by: Kevin Isbell M.D. 11/07/2022 9:32 AM Medications Administered Current Inpatient Medications Acetaminophen (Acetaminophen 325 Mg Tab) 650 mg PO Q4H PRN PRN Reason: Pain or Fever Stop: 11/30/22 20:23 Last Admin: 11/06/22 20:21 Dose: 650 mg Al Hydrox/Mg Hydrox/Simethicone (Aluminum/Magnesium/Simeth (Maalox Max) 30 Ml Udc) 30 ml PO Q6H PRN PRN Reason: Heartburn Stop: 12/08/22 04:09 Last Admin: 11/08/22 04:21 Dose: 30 ml Albuterol (Albuterol 0.083% Nebu Soln 3 Ml Vial) 2.5 mg INH Q4H PRN; Protocol PRN Reason: Shortness Of Breath Or Wheezing Stop: 11/30/22 20:23 Albuterol (Albuterol Hfa 8 Gm Inhaler) 2 puffs INH Q4 PRN PRN Reason: Wheezing Stop: 11/30/22 20:23 Amiodarone HCl (Amiodarone 200 Mg Tab) 200 mg PO BIDM [facility] Stop: 12/07/22 12:04 Last Admin: 11/08/22 08:44 Dose: 200 mg Apixaban (Apixaban 5 Mg Tablet) 5 mg PO [facility] Stop: 11/30/22 20:59 Last Admin: 11/01/22 20:52 Dose: 5 mg Aspirin (Aspirin 81 Mg Ectab) 81 mg PO DAILY ANDREY Stop: 12/01/22 08:59 Last Admin: 11/08/22 08:51 Dose: Not Given Atorvastatin Calcium (Atorvastatin 40 Mg Tab) 80 mg PO HS [facility] Stop: 11/30/22 20:59 Last Admin: 11/07/22 20:05 Dose: 80 mg Cyanocobalamin (Cyanocobalamin (B-12) 500 Mcg Tablet) 1,000 mcg PO DAILY ANDREY Stop: 12/01/22 08:59 Last Admin: 11/08/22 08:44 Dose: 1,000 mcg Duloxetine HCl (Duloxetine Hcl 30 Mg Cap) 30 mg PO QAM ANDREY Stop: 12/01/22 08:59 Last Admin: 11/08/22 08:44 Dose: 30 mg Ferrous Sulfate (Ferrous Sulfate 325 Mg Tab) 325 mg PO DAILY ANDREY Stop: 12/01/22 08:59 Last Admin: 11/08/22 08:43 Dose: 325 mg Fluticasone Furoate (Fluticasone Furoate 200mcg 14 Puffs/Inhaler) 1 puffs INH DAILY ANDREY Stop: 12/01/22 08:59 Last Admin: 11/08/22 08:44 Dose: Not Given Heparin Sodium (Porcine) (Heparin 100 Unit/Ml 5ml Flush) 5 ml FLUSH PRN PRN PRN Reason: Flush Stop: 12/02/22 01:44 Last Admin: 11/07/22 20:10 Dose: 5 ml Pantoprazole Sodium 40 mg/ (Syringe) 10 mls @ 5 mls/min IV BID [facility] Stop: 11/30/22 20:59 Last Admin: 11/08/22 08:43 Dose: 5 mls/min Sodium Chloride (Nss 1000ml) 1,000 mls @ 80 mls/hr IV .[id number] [facility] Last Admin: 11/05/22 11:43 Dose: Not Given Famotidine 20 mg/ Syringe 5 mls @ 2.5 mls/min IV BID [facility] Stop: 12/08/22 09:44 Magnesium Oxide (Magnesium Oxide 400 Mg Tab) 400 mg PO DAILY [facility] Stop: 12/01/22 08:59 Last Admin: 11/08/22 08:43 Dose: 400 mg Metoprolol Succinate (Metoprolol Succ 50mg Ext Rel Tab) 50 mg PO DAILY [facility] Stop: 12/01/22 08:59 Last Admin: 11/08/22 08:43 Dose: 50 mg Mirtazapine (Mirtazapine Tab 15 Mg Tab) 15 mg PO HS [facility] Stop: 11/30/22 20:59 Last Admin: 11/07/22 20:06 Dose: 15 mg Miscellaneous (Remove Nicoderm Patch) 1 each N/A DAILY@0859 [facility] Stop: 12/01/22 08:58 Last Admin: 11/08/22 08:44 Dose: 1 each Nicotine (Nicotine 21 Mg/24 Hr Tdsy) 21 mg TD DAILY [facility] Stop: 11/30/22 20:54 Last Admin: 11/08/22 08:43 Dose: 21 mg Nitroglycerin (Nitroglycerin Sl 0.4 Mg/Tab Tab) 0.4 mg SL UD PRN PRN Reason: Chest Pain Stop: 11/30/22 20:23 Ondansetron HCl (Ondansetron Inj 2 Mg/Ml 2 Ml Vial) 4 mg IV Q6H PRN PRN Reason: Nausea Stop: 11/30/22 20:23 Last Admin: 11/08/22 08:50 Dose: 4 mg Prochlorperazine (Prochlorperazine Maleate 5 Mg Tab) 5 mg PO TID PRN PRN Reason: nausea and vomiting Stop: 11/30/22 20:23 Last Admin: 11/01/22 09:56 Dose: 5 mg Ropinirole HCl (Ropinirole Hcl 0.25 Mg Tablet) 0.5 mg PO HS [facility] Stop: 11/30/22 20:59 Last Admin: 11/07/22 20:05 Dose: 0.5 mg Trazodone HCl (Trazodone Hcl 50 Mg Tab) 150 mg PO HS [facility] Stop: 11/30/22 20:59 Last Admin: 11/07/22 20:05 Dose: 150 mg Umeclidinium [place] (Umeclidinium [place] 62.5mcg/Blister 7 Puffs/Inhaler) 1 puffs INH DAILY [facility] Stop: 12/01/22 08:59 Last Admin: 11/08/22 08:50 Dose: Not Given Vitamin D (Cholecalciferol 1,000 Units 25 Mcg Tab) 1,000 units PO DAILY [facility] Stop: 12/01/22 08:59 Last Admin: 11/08/22 08:44 Dose: 1,000 units
[2022-11-08] MEDS: FAMOTIDINE 20 MG in SYRINGE 3 ML IV SCH ×2 (11:14→21:21)
[2022-11-08] MEDS ORDERED: METOPROLOL TARTRATE 1 MG/ML VIAL IV STA (11:59)
[2022-11-08] MEDS: SODIUM CHLORIDE 0.9% 1000ML 1,000 ML IV SCH (12:20)
--- NOTE | 2022-11-08 13:45 | Cardiology Progress Note ---
Date of Service November 08, 2022 Assessment & Plan (1) Paroxysmal atrial fibrillation: (2) PSVT (paroxysmal supraventricular tachycardia): (3) Esophageal cancer: (4) Coronary artery disease: (5) S/P CABG (coronary artery bypass graft): Plan ASSESSMENT/PLAN: 1. Paroxysmal atrial fibrillation: Has had paroxysmal atrial fibrillation during this hospital stay which apparently has spontaneously converted and then on 11/05/2022 intravenous amiodarone was used to convert to sinus rhythm. She apparently did not tolerate the second episode. IV amiodarone was discontinued on 11/07/2022 in favor of amiodarone 200 mg p.o. b.i.d.. She reverted to atrial fibrillation on 11/08/2022 but seems to be tolerating. Increase amiodarone to 400 mg p.o. b.i.d.. If she develops intolerance to the AFib, significant tachycardia, or reduced blood pressures, with Re bolus with amiodarone 150 mg IV and then drip and can hold p.o. amiodarone. Would expect that she will convert to sinus rhythm. Monitor TSH then transaminase levels while on amiodarone. She has been deemed too high risk for anticoagulation therapy given bleeding esophageal cancer. 2. Paroxysmal SVT: Apparently did not tolerate well and was terminated with intravenous adenosine in the emergency department. On amiodarone as above. 3. CAD s/p CABG x 2 (KELLEY to LAD and PADMINI to PDA) and s/p Cx PCI: No angina. On aspirin, beta-yair, and high-intensity statin therapy. She appears euvolemic. 4. Esophageal cancer: As per other providers. 5. Disposition: Cardiology will continue to follow. Primary toy painter is Dr. Thakur. Patient care communicated with primary hospitalist, Dr. Ruelas. Admission and Anticipated Discharge Date Admission Date: October 31, 2022 Subjective Notified by primary hospitalist that patient developed atrial fibrillation with rapid ventricular response late this morning. Was asked to evaluate. She vomited this morning but believes that it was well after her morning pills. She recalls feeling palpitations when AFib developed late this morning. She felt short of breath for some time but overall feels much better now. She is not at her baseline as she was earlier this morning however, stating that she feels weak. Primary hospitalist ordered metoprolol 5 mg IV x1 for RVR. She denies chest pain, syncope, near-syncope, edema, or bleeding today. Intravenous amiodarone was initiated on 11/05/2022 and discontinued on 11/07/2022 in favor of oral amiodarone 200 mg twice daily. Physical Exam Physical Exam: Gen.: No acute distress. Alert. HEENT: Anicteric sclera. Neck: No JVD. Cardiac: No ventricular heave. Irregularly irregular. Tachycardic. Normal S1- S2. No murmurs, rubs, or gallops. Pulmonary: Clear to auscultation bilaterally without wheezes, rales, or rhonchi. Abdomen: Soft, nontender, nondistended, with hypo active bowel sounds. No bruits noted. Extremities: 1+ right radial pulse. 2+ left radial pulse.. 2+ posterior tibialis pulses bilaterally. No significant pitting edema or cyanosis. Results & Data ([facility]) Vital Signs (Past 12 Hours) Vital Signs Temp Pulse Pulse Resp BP BP Pulse Ox 11/08/22 08:00 11/08/22 12:20 125 H 115/78 11/08/22 12:03 123 H 17 115/78 94 11/08/22 11:33 36.6 C 74 15 123/78 96 11/08/22 08:09 36.6 C 70 17 115/53 L 95 11/08/22 04:30 36.6 C 89 16 122/79 95 Pulse Ox O2 Del Method O2 Del Method 11/08/22 08:00 94 Room Air 11/08/22 12:20 11/08/22 12:03 Room Air 11/08/22 11:33 Room Air 11/08/22 08:09 Room Air 11/08/22 04:30 Room Air Laboratory Results Laboratory Results - last 24 hr 11/08/22 11/08/22 11/08/22 08:18 08:18 12:53 WBC 15.66 H RBC 3.60 L Hgb 10.6 L Hct 31.9 L MCV 88.6 MCH 29.4 MCHC 33.2 RDW Std Deviation 44.7 RDW Coeff of Cassi 13.8 Plt Count 347 MPV 9.5 Sodium 134 L Potassium 4.1 Chloride 99 Carbon Dioxide 30 Anion Gap 5 BUN 6 Creatinine 0.50 L Est Cr Clr Drug Dosing 91.5 Est GFR ( Amer) 112.1 Est GFR (Non-Af Amer) 96.7 BUN/Creatinine Ratio 12.0 Glucose 112 H Calcium 7.6 L Phosphorus 3.7 Magnesium 1.9 Troponin I High Sens 13.4 Diagnostic Findings Telemetry personally reviewed: Sinus rhythm with development of AFib with RVR at 11:46 a.m. on 11/08/2022. ECG personally reviewed 11/08/2022: AFib with RVR 120 beats per minute. Inferior and anterior ST/T-wave abnormality. Echo 09/18/2022: Normal LV size, wall motion, systolic function. EF 60-65%. No significant valvular abnormalities. Chest x-ray 11/07/2022: Emphysema with chronic interstitial coarsening. Chart reviewed. She underwent esophageal stent placement on 11/06/2022. Medications Administered Current Inpatient Medications Acetaminophen (Acetaminophen 325 Mg Tab) 650 mg PO Q4H PRN PRN Reason: Pain or Fever Stop: 11/30/22 20:23 Last Admin: 11/06/22 20:21 Dose: 650 mg Al Hydrox/Mg Hydrox/Simethicone (Aluminum/Magnesium/Simeth (Maalox Max) 30 Ml Udc) 30 ml PO Q6H PRN PRN Reason: Heartburn Stop: 12/08/22 04:09 Last Admin: 11/08/22 04:21 Dose: 30 ml Albuterol (Albuterol 0.083% Nebu Soln 3 Ml Vial) 2.5 mg INH Q4H PRN; Protocol PRN Reason: Shortness Of Breath Or Wheezing Stop: 11/30/22 20:23 Albuterol (Albuterol Hfa 8 Gm Inhaler) 2 puffs INH Q4 PRN PRN Reason: Wheezing Stop: 11/30/22 20:23 Amiodarone HCl (Amiodarone 200 Mg Tab) 200 mg PO BIDM [facility] Stop: 12/07/22 12:04 Last Admin: 11/08/22 08:44 Dose: 200 mg Apixaban (Apixaban 5 Mg Tablet) 5 mg PO AMHS [facility] Stop: 11/30/22 20:59 Last Admin: 11/01/22 20:52 Dose: 5 mg Aspirin (Aspirin 81 Mg Ectab) 81 mg PO DAILY [facility] Stop: 12/01/22 08:59 Last Admin: 11/08/22 08:51 Dose: Not Given Atorvastatin Calcium (Atorvastatin 40 Mg Tab) 80 mg PO HS [facility] Stop: 11/30/22 20:59 Last Admin: 11/07/22 20:05 Dose: 80 mg Cyanocobalamin (Cyanocobalamin (B-12) 500 Mcg Tablet) 1,000 mcg PO DAILY [facility] Stop: 12/01/22 08:59 Last Admin: 11/08/22 08:44 Dose: 1,000 mcg Duloxetine HCl (Duloxetine Hcl 30 Mg Cap) 30 mg PO QAM [facility] Stop: 12/01/22 08:59 Last Admin: 11/08/22 08:44 Dose: 30 mg Ferrous Sulfate (Ferrous Sulfate 325 Mg Tab) 325 mg PO DAILY [facility] Stop: 12/01/22 08:59 Last Admin: 11/08/22 08:43 Dose: 325 mg Fluticasone Furoate (Fluticasone Furoate 200mcg 14 Puffs/Inhaler) 1 puffs INH DAILY [facility] Stop: 12/01/22 08:59 Last Admin: 11/08/22 08:44 Dose: Not Given Heparin Sodium (Porcine) (Heparin 100 Unit/Ml 5ml Flush) 5 ml FLUSH PRN PRN PRN Reason: Flush Stop: 12/02/22 01:44 Last Admin: 11/07/22 20:10 Dose: 5 ml Pantoprazole Sodium 40 mg/ (Syringe) 10 mls @ 5 mls/min IV BID [facility] Stop: 11/30/22 20:59 Last Admin: 11/08/22 08:43 Dose: 5 mls/min Sodium Chloride (Nss 1000ml) 1,000 mls @ 80 mls/hr IV .[id number] [facility] Stop: 11/10/22 01:09 Last Admin: 11/08/22 12:20 Dose: 80 mls/hr Famotidine 20 mg/ Syringe 5 mls @ 2.5 mls/min IV BID [facility] Stop: 12/08/22 09:44 Last Admin: 11/08/22 11:14 Dose: 2.5 mls/min Magnesium Oxide (Magnesium Oxide 400 Mg Tab) 400 mg PO DAILY [facility] Stop: 12/01/22 08:59 Last Admin: 11/08/22 08:43 Dose: 400 mg Metoprolol Succinate (Metoprolol Succ 50mg Ext Rel Tab) 50 mg PO DAILY [facility] Stop: 12/01/22 08:59 Last Admin: 11/08/22 08:43 Dose: 50 mg Mirtazapine (Mirtazapine Tab 15 Mg Tab) 15 mg PO HS [facility] Stop: 11/30/22 20:59 Last Admin: 11/07/22 20:06 Dose: 15 mg Miscellaneous (Remove Nicoderm Patch) 1 each N/A DAILY@0859 [facility] Stop: 12/01/22 08:58 Last Admin: 11/08/22 08:44 Dose: 1 each Nicotine (Nicotine 21 Mg/24 Hr Tdsy) 21 mg TD DAILY [facility] Stop: 11/30/22 20:54 Last Admin: 11/08/22 08:43 Dose: 21 mg Nitroglycerin (Nitroglycerin Sl 0.4 Mg/Tab Tab) 0.4 mg SL UD PRN PRN Reason: Chest Pain Stop: 11/30/22 20:23 Ondansetron HCl (Ondansetron Inj 2 Mg/Ml 2 Ml Vial) 4 mg IV Q6H PRN PRN Reason: Nausea Stop: 11/30/22 20:23 Last Admin: 11/08/22 08:50 Dose: 4 mg Prochlorperazine (Prochlorperazine Maleate 5 Mg Tab) 5 mg PO TID PRN PRN Reason: nausea and vomiting Stop: 11/30/22 20:23 Last Admin: 11/01/22 09:56 Dose: 5 mg Ropinirole HCl (Ropinirole Hcl 0.25 Mg Tablet) 0.5 mg PO [facility] Stop: 11/30/22 20:59 Last Admin: 11/07/22 20:05 Dose: 0.5 mg Trazodone HCl (Trazodone Hcl 50 Mg Tab) 150 mg PO [facility] Stop: 11/30/22 20:59 Last Admin: 11/07/22 20:05 Dose: 150 mg Umeclidinium [place] (Umeclidinium [place] 62.5mcg/Blister 7 Puffs/Inhaler) 1 puffs INH DAILY [facility] Stop: 12/01/22 08:59 Last Admin: 11/08/22 08:50 Dose: Not Given Vitamin D (Cholecalciferol 1,000 Units 25 Mcg Tab) 1,000 units PO DAILY [facility] Stop: 12/01/22 08:59 Last Admin: 11/08/22 08:44 Dose: 1,000 units PG Care Time/CCT Total # of Minutes Spent Total Time Spent with Patient: Total time spent is greater than 50% in coordination of care (as documented) at patient's floor/unit and/or counseling patient: Coding Level of Care Code 50919 Subseq Hosp Care Lvl 3 Diagnoses Paroxysmal atrial fibrillation I48.0 PSVT (paroxysmal supraventricular tachycardia) I47.1 Esophageal cancer C15.9 Coronary artery disease I25.10 S/P CABG (coronary artery bypass graft) Z95.1
[2022-11-08] MEDS ORDERED: AMIODARONE 200 MG TAB PO ONE (13:50)
[2022-11-08] MEDS ORDERED: SODIUM CHLORIDE 0.9% 500 ML IV SCH ×2 (19:30→21:00)
[2022-11-08] MEDS: MIRTAZAPINE TAB 15 MG TAB PO SCH (21:22)
[2022-11-08] MEDS: rOPINIRole HCL 0.25 MG TABLET PO SCH (21:23)
[2022-11-08] MEDS: ATORVASTATIN 40 MG TAB PO SCH (21:23)
[2022-11-09] MEDS: SODIUM CHLORIDE 0.9% 1000ML 1,000 ML IV SCH ×2 (01:58→14:37)
[2022-11-09 08:00] LABS: Hematocrit (blood only) 30.1 % (34.1-44.9); Hemoglobin 9.9 g/dl (12.0-16.0); Mean Corpuscular Hemoglobin 29.7 pg (25.0-34.0); Mean Corpuscular Hgb Conc 32.9 g/dL (32.0-36.0); Mean Corpuscular Volume 90.4 fL (80.0-100.0); Mean Platelet Volume 9.3 fL (9.4-12.3); Platelet Count 362 K/uL (130-400); RDW Coefficient of Variation 14.6 % (11.5-14.5); RDW Standard Deviation 48.5 fL (36.4-46.3); Red Blood Count 3.33 M/uL (3.93-5.22); White Blood Count 17.11 K/ul (4.8-10.8)
[2022-11-09 08:12] LABS: INR 1.1 (0.9-1.1)
[2022-11-09 08:18] LABS: Albumin Level 2.2 gm/dl (3.4-5.0); BUN Creatinine Ratio 20.9 (10-20); Bilirubin,Total 0.4 mg/dl (0.2-1.0); Calcium 7.4 mg/dl (8.5-10.1); Creatinine Clr Calc Pharmacy 106.4 ml/min; Est GFR (African American) 117.8 ml/min; Est GFR (Non-African American) 101.6 ml/min; Globulin 2.3 gm/dl (2.5-4.0); Magnesium 1.8 mg/dl (1.7-2.4); Phosphorus 3.3 mg/dl (2.5-4.9); Potassium 3.4 mmol/L (3.5-5.1); Total Protein 4.5 gm/dl (6.0-8.3)
[2022-11-09] MEDS ORDERED: POTASSIUM CHLORIDE 20 MEQ/15 ML UDC PO ONE (08:24)
[2022-11-09] MEDS: AMIODARONE 200 MG TAB PO SCH ×2 (09:49→16:11)
[2022-11-09] MEDS: FAMOTIDINE 20 MG in SYRINGE 3 ML IV SCH ×2 (09:49→20:28)
[2022-11-09] MEDS: CHOLECALCIFEROL 1,000 UNITS 25 MCG TAB PO SCH (09:49)
[2022-11-09] MEDS: MAGNESIUM OXIDE 400 MG TAB PO SCH (09:50)
[2022-11-09] MEDS: CYANOCOBALAMIN (B-12) 500 MCG TABLET PO SCH (09:50)
[2022-11-09] MEDS: FERROUS SULFATE 325 MG TAB PO SCH (09:50)
[2022-11-09] MEDS: NICOTINE 21 MG/24 HR TDSY TD SCH (09:50)
[2022-11-09] MEDS: DULoxetine HCL 30 MG CAP PO SCH (09:51)
[2022-11-09] MEDS: PANTOprazole 40 MG in SYRINGE 0 ML IV SCH ×2 (09:51→20:27)
[2022-11-09] MEDS: METOPROLOL SUCC 50MG EXT REL TAB PO SCH (09:51)
[2022-11-09] MEDS: FLUTICASONE FUROATE 200MCG 14 PUFFS/INHALER INH SCH (09:57)
[2022-11-09] MEDS: UMECLIDINIUM BROMIDE 62.5MCG/BLISTER 7 PUFFS/INHALER INH SCH (09:57)
[2022-11-09] MEDS: ASPIRIN 81 MG ECTAB PO SCH (09:57)
--- NOTE | 2022-11-09 12:00 | Hospitalist Progress Note ---
Date of Service November 09, 2022 Assessment & Plan (1) Atrial fibrillation with RVR: (2) Esophageal carcinoma: Plan Patient is a 72 yr female with H/O CAD S/P CABG, stent, PAF on Eliquis, CM [EF 55 to 60% on TTE 2017], PVD, TIA, HTN, HLD, Williamson's esophagus, recent diagnosis of esophageal adenocarcinoma 09/03/22, prediabetes, chronic anemia [baseline hemoglobin 9-10], ongoing tobacco abuse presented to our ED 09/17 with complaint of SVT, Nausea and vomiting. Of note, during recent EGD/EUS attempt on Oct 17, she had SVT and procedure aborted. She was off of metoprolol for 2 days. She was in oncology office on the day of arrival where she vomited/nauseous and went in SVT; hence presented to ED. She is being managed for the following: Esophageal adenocarcinoma Gastritis, esophagitis Nausea/vomiting due to above Follows with Dr De Leon and Dr Ni Lower GI bleed: BRBPR w/ stool 11/01 Ongoing tobacco use disorder --Diagnosed with esophageal adenocarcinoma 09/03/2022, was undergoing EGD/EUS on October 17 as part of onco w/u which was aborted due to SVT. --CT ABD:The partially visualized distal esophagus/gastric pull-through is markedly thick walled and edematous. This could represent a severe gastritis/esophagitis or possibly a mass lesion. Clinical correlation will be required and endoscopy could be considered for further assessment. There is a 12 mm focal outpouching of the distal esophagus/gastric pull-through versus necrotic paraesophageal lymph node. Trace right pleural effusion with associated pleural thickening. This was also seen in 2016. No acute infectious or inflammatory findings are identified in the abdomen or pelvis. --CTA:No evidence of pulmonary embolism. Postsurgical changes of esophageal resection and gastric pull-through. --11/04 EUS: Distal esophageal circumferential malignancy staged T3 N0 Mx by endosonographic criteria. Patient is very high risk for massive upper GI bleeding if she is using anticoagulation due to ongoing blood oozing of the large esophageal cancer. --11/06 EGD scope:Obstructing/malignant esophageal tumor in the lower third of the esophagus. Esophageal stent placed. -- Clear liquid diet advance to full liquids. Advance to post stent special diet in 2 days --Continue Protonix, Pepcid -- Aspirin restarted on 11/09/22 -- Eliquis on hold indefinitely due to high risk for upper GI bleed --Appreciate GI, oncology input --Monitor H&H and transfuse PRBCs as needed --Needs follow-up with GI, oncology upon discharge Dehydration Suspected sepsis Leukocytosis likely secondary to malignancy No obvious source of infection Blood cultures negative IV antibiotics discontinued Mild Troponin elevation Likely demand ischemia secondary to tachycardia SVT Afib RVR H/O Orthostatic hypotension 09/18/2022 ECHO: EF 60 to 65%, grade 2 diastolic dysfunction. Moderate concentric LVH. -Converted to sinus rhythm IV amiodarone discontinued Continue amiodarone 400 mg daily, metoprolol 50 mg daily Not a candidate for anticoagulation Appreciate cardiology input Needs follow-up with cardiology upon discharge Eliquis held indefinitely Hypokalemia Replace replace as needed Ongoing tobacco use [employer] to quit smoking CAD S/P CABG/stent PVD TIA Continue aspirin, statin, beta-yair HLD on statin H/O Williamson's esophagus Chronic anemia Prediabetes Continue home meds DVT Px: SCDs Code Status Full code Admission and Anticipated Discharge Date Admission Date: October 31, 2022 Subjective Patient is seen and examined at bedside Converted to sinus rhythm this morning Reports on and off palpitations Also states having heartburn and mild discomfort with swallowing No other complaints Review of Systems Review of Systems: All systems reviewed & are unremarkable except as noted in Subjective Physical Exam Physical Exam: Physical Exam: Vitals signs as noted above General Appearance:Thin, chronic ill, no apparent distress Head: normocephalic, Atraumatic Eyes: normal inspection, EOMI Neck: supple, Trachea midline Respiratory/Chest: Decreased breath sounds, CTA, R port, No accessory muscle use Cardiovascular: S1, S2, No murmur Abdomen/GI:Soft, Non tender, Bowel sounds present Extremities/Musculoskeletal:normal inspection, no edema Neurologic/Psych:AAOX3, grossly no focal neurological deficits Skin: normal color, warm Results & Data Results & Data ([facility]) Vital Signs (Past 12 Hours) Vital Signs Temp Pulse Resp BP Pulse Ox O2 Del Method 11/09/22 11:22 36.8 C 75 16 140/68 93 Room Air 11/09/22 08:18 36.5 C 87 16 114/74 96 Room Air 11/09/22 02:24 36.5 C 108 H 19 107/64 96 Room Air Laboratory Results Short CBC 11/09/22 Range/Units 07:48 WBC 17.11 H (4.8-10.8) K/ul Hgb 9.9 L (12.0-16.0) g/dl Hct 30.1 L (34.1-44.9) % Plt Count 362 (130-400) K/uL BMP 11/09/22 07:48 Sodium 134 L Potassium 3.4 L Chloride 100 Carbon Dioxide 24 BUN 9 Creatinine 0.43 L Glucose 97 Calcium 7.4 L Liver Function 11/09/22 Range/Units 07:48 Total Bilirubin 0.4 (0.2-1.0) mg/dl AST 13 (13-39) U/L ALT 6 L (7-52) U/L Alkaline Phosphatase 75 (34-104) U/L Albumin 2.2 L (3.4-5.0) gm/dl
--- NOTE | 2022-11-09 14:00 | Cardiology Progress Note ---
Date of Service November 09, 2022 Assessment & Plan (1) Paroxysmal atrial fibrillation: (2) PSVT (paroxysmal supraventricular tachycardia): (3) Esophageal cancer: (4) Coronary artery disease: (5) S/P CABG (coronary artery bypass graft): Plan ASSESSMENT/PLAN: 1. Paroxysmal atrial fibrillation: Has had paroxysmal atrial fibrillation during this hospital stay which apparently has spontaneously converted and then on 11/05/2022 intravenous amiodarone was used to convert to sinus rhythm. She apparently did not tolerate the second episode. IV amiodarone was discontinued on 11/07/2022 in favor of amiodarone 200 mg p.o. b.i.d.. She reverted to atrial fibrillation on 11/08/2022 but seems to be tolerating. Amiodarone increased to 400 mg daily on 11/08/2022 and she converted to sinus rhythm on 11/09/2022. Monitor transaminase levels and TSH while on amiodarone. Continue 400 mg twice daily of amiodarone for an additional 6 days and then resume 200 mg twice daily. She has been deemed too high risk for anticoagulation therapy given bleeding esophageal cancer. 2. Paroxysmal SVT: Apparently did not tolerate well and was terminated with intravenous adenosine in the emergency department. On amiodarone as above. 3. CAD s/p CABG x 2 (KELLEY to LAD and PADMINI to PDA) and s/p Cx PCI: No angina. On aspirin, beta-yair, and high-intensity statin therapy. She appears euvolemic. 4. Esophageal cancer: As per other providers. 5. Disposition: Cardiology will continue to follow. Primary field representative/health education is Dr. Thakur. Patient care communicated with primary hospitalist, Dr. Willard. Admission and Anticipated Discharge Date Admission Date: October 31, 2022 Subjective Patient seen this morning. She converted to sinus rhythm at 3:59 a.m. on 11/09/2022. She denies chest pain, shortness of breath, palpitations, syncope, edema, or bleeding. She was alone in her hospital room. Physical Exam Physical Exam: Gen.: No acute distress. Alert. HEENT: Anicteric sclera. Neck: No JVD. Cardiac: No ventricular heave. Regular. Normal S1-S2. No murmurs, rubs, or gallops. Pulmonary: Bibasilar crackles, but otherwise clear bilaterally. Abdomen: Soft, nontender, nondistended, with hypo active bowel sounds. No bruits noted. Extremities: 1+ right radial pulse. 2+ left radial pulse. 2+ posterior tibialis pulses bilaterally. No significant pitting edema or cyanosis. Results & Data ([facility]) Vital Signs (Past 12 Hours) Vital Signs Temp Pulse Pulse Resp BP Pulse Ox O2 Del Method 11/09/22 07:00 89 11/09/22 08:00 Room Air 11/09/22 11: 36.8 C 75 16 140/68 93 Room Air 11/09/22 08:18 36.5 C 87 16 114/74 96 Room Air 11/09/22 02:24 36.5 C 108 H 19 107/64 96 Room Air Intake & Output 11/07/22 11/08/22 11/09/22 11/10/22 06:59 06:59 06:59 06:59 Intake Total 910 / 910 771.135 / 701.184 5613 / 2610 Output Total 600 / 600 400 / 400 300 / 300 Balance 310 / 310 771.135 / 991.491 7505 / 2210 -300 / -300 Weight 143 lb 11.862 oz 145 lb 15.136 oz 132 lb 11.492 oz Laboratory Results Laboratory Results - last 24 hr 11/08/22 11/09/22 11/09/22 19:15 07:48 07:48 WBC 17.11 H RBC 3.33 L Hgb 9.9 L Hct 30.1 L MCV 90.4 MCH 29.7 MCHC 32.9 RDW Std Deviation 48.5 H RDW Coeff of Cassi 14.6 H Plt Count 362 MPV 9.3 L PT 12.0 INR 1.1 Sodium Potassium Chloride Carbon Dioxide Anion Gap BUN Creatinine Est Cr Clr Drug Dosing Est GFR ( Amer) Est GFR (Non-Af Amer) BUN/Creatinine Ratio Glucose POC Glucose 140 H Calcium Phosphorus Magnesium Total Bilirubin AST ALT Alkaline Phosphatase Total Protein Albumin Globulin Albumin/Globulin Ratio 11/09/22 07:48 WBC RBC Hgb Hct MCV MCH MCHC RDW Std Deviation RDW Coeff of Cassi Plt Count MPV PT INR Sodium 134 L Potassium 3.4 L Chloride 100 Carbon Dioxide 24 Anion Gap 10 BUN 9 Creatinine 0.43 L Est Cr Clr Drug Dosing 106.4 Est GFR ( Amer) 117.8 Est GFR (Non-Af Amer) 101.6 BUN/Creatinine Ratio 20.9 H Glucose 97 POC Glucose Calcium 7.4 L Phosphorus 3.3 Magnesium 1.8 Total Bilirubin 0.4 AST 13 ALT 6 L Alkaline Phosphatase 75 Total Protein 4.5 L Albumin 2.2 L Globulin 2.3 L Albumin/Globulin Ratio 1.0 Diagnostic Findings Telemetry personally reviewed: Atrial fibrillation converted to sinus rhythm at 3:59 a.m. on 11/09/2022. Has remained in sinus rhythm. ECG personally reviewed 11/09/2022: Sinus rhythm 80 beats per minute. Nonspecific T-wave abnormality. Medications Administered Current Inpatient Medications Acetaminophen (Acetaminophen 325 Mg Tab) 650 mg PO Q4H PRN PRN Reason: Pain or Fever Stop: 11/30/22 20:23 Last Admin: 11/06/22 20:21 Dose: 650 mg Al Hydrox/Mg Hydrox/Simethicone (Aluminum/Magnesium/Simeth (Maalox Max) 30 Ml Udc) 30 ml PO Q6H PRN PRN Reason: Heartburn Stop: 12/08/22 04:09 Last Admin: 11/08/22 04:21 Dose: 30 ml Albuterol (Albuterol 0.083% Nebu Soln 3 Ml Vial) 2.5 mg INH Q4H PRN; Protocol PRN Reason: Shortness Of Breath Or Wheezing Stop: 11/30/22 20:23 Albuterol (Albuterol Hfa 8 Gm Inhaler) 2 puffs INH Q4 PRN PRN Reason: Wheezing Stop: 11/30/22 20:23 Amiodarone HCl (Amiodarone 200 Mg Tab) 400 mg PO BIDM [facility] Stop: 12/08/22 16:59 Last Admin: 11/09/22 09:49 Dose: 400 mg Apixaban (Apixaban 5 Mg Tablet) 5 mg PO AMHS [facility] Stop: 11/30/22 20:59 Last Admin: 11/01/22 20:52 Dose: 5 mg Aspirin (Aspirin 81 Mg Ectab) 81 mg PO DAILY [facility] Stop: 12/01/22 08:59 Last Admin: 11/09/22 09:57 Dose: Not Given Atorvastatin Calcium (Atorvastatin 40 Mg Tab) 80 mg PO HS [facility] Stop: 11/30/22 20:59 Last Admin: 11/08/22 21:23 Dose: 80 mg Cyanocobalamin (Cyanocobalamin (B-12) 500 Mcg Tablet) 1,000 mcg PO DAILY [facility] Stop: 12/01/22 08:59 Last Admin: 11/09/22 09:50 Dose: 1,000 mcg Duloxetine HCl (Duloxetine Hcl 30 Mg Cap) 30 mg PO QAM [facility] Stop: 12/01/22 08:59 Last Admin: 11/09/22 09:51 Dose: 30 mg Ferrous Sulfate (Ferrous Sulfate 325 Mg Tab) 325 mg PO DAILY [facility] Stop: 12/01/22 08:59 Last Admin: 11/09/22 09:50 Dose: 325 mg Fluticasone Furoate (Fluticasone Furoate 200mcg 14 Puffs/Inhaler) 1 puffs INH DAILY [facility] Stop: 12/01/22 08:59 Last Admin: 11/09/22 09:57 Dose: Not Given Heparin Sodium (Porcine) (Heparin 100 Unit/Ml 5ml Flush) 5 ml FLUSH PRN PRN PRN Reason: Flush Stop: 12/02/22 01:44 Last Admin: 11/07/22 20:10 Dose: 5 ml Pantoprazole Sodium 40 mg/ (Syringe) 10 mls @ 5 mls/min IV BID [facility] Stop: 11/30/22 20:59 Last Admin: 11/09/22 09:51 Dose: 5 mls/min Sodium Chloride (Nss 1000ml) 1,000 mls @ 80 mls/hr IV .[id number] [facility] Stop: 11/10/22 01:09 Last Admin: 11/09/22 01:58 Dose: 80 mls/hr Famotidine 20 mg/ Syringe 5 mls @ 2.5 mls/min IV BID [facility] Stop: 12/08/22 09:44 Last Admin: 11/09/22 09:49 Dose: 2.5 mls/min Magnesium Oxide (Magnesium Oxide 400 Mg Tab) 400 mg PO DAILY [facility] Stop: 12/01/22 08:59 Last Admin: 11/09/22 09:50 Dose: 400 mg Metoprolol Succinate (Metoprolol Succ 50mg Ext Rel Tab) 50 mg PO DAILY [facility] Stop: 12/01/22 08:59 Last Admin: 11/09/22 09:51 Dose: 50 mg Mirtazapine (Mirtazapine Tab 15 Mg Tab) 15 mg PO [facility] Stop: 11/30/22 20:59 Last Admin: 11/08/22 21:22 Dose: 15 mg Miscellaneous (Remove Nicoderm Patch) 1 each N/A DAILY@0859 [facility] Stop: 12/01/22 08:58 Last Admin: 11/09/22 09:49 Dose: 1 each Nicotine (Nicotine 21 Mg/24 Hr Tdsy) 21 mg TD DAILY [facility] Stop: 11/30/22 20:54 Last Admin: 11/09/22 09:50 Dose: 21 mg Nitroglycerin (Nitroglycerin Sl 0.4 Mg/Tab Tab) 0.4 mg SL UD PRN PRN Reason: Chest Pain Stop: 11/30/22 20:23 Ondansetron HCl (Ondansetron Inj 2 Mg/Ml 2 Ml Vial) 4 mg IV Q6H PRN PRN Reason: Nausea Stop: 11/30/22 20:23 Last Admin: 11/08/22 08:50 Dose: 4 mg Prochlorperazine (Prochlorperazine Maleate 5 Mg Tab) 5 mg PO TID PRN PRN Reason: nausea and vomiting Stop: 11/30/22 20:23 Last Admin: 11/01/22 09:56 Dose: 5 mg Ropinirole HCl (Ropinirole Hcl 0.25 Mg Tablet) 0.5 mg PO [facility] Stop: 11/30/22 20:59 Last Admin: 11/08/22 21:23 Dose: 0.5 mg Trazodone HCl (Trazodone Hcl 50 Mg Tab) 150 mg PO [facility] Stop: 11/30/22 20:59 Last Admin: 11/09/22 00:00 Dose: Not Given Umeclidinium [place] (Umeclidinium [place] 62.5mcg/Blister 7 Puffs/Inhaler) 1 puffs INH DAILY [facility] Stop: 12/01/22 08:59 Last Admin: 11/09/22 09:57 Dose: Not Given Vitamin D (Cholecalciferol 1,000 Units 25 Mcg Tab) 1,000 units PO DAILY [facility] Stop: 12/01/22 08:59 Last Admin: 11/09/22 09:49 Dose: 1,000 units PG Care Time/CCT Total # of Minutes Spent Total Time Spent with Patient: Total time spent is greater than 50% in coordination of care (as documented) at patient's floor/unit and/or counseling patient: Coding Level of Care Code 68082 Subseq Hosp Care Lvl 3 Diagnoses Paroxysmal atrial fibrillation I48.0 PSVT (paroxysmal supraventricular tachycardia) I47.1 Esophageal cancer C15.9 Coronary artery disease I25.10 S/P CABG (coronary artery bypass graft) Z95.1
[2022-11-09] MEDS: rOPINIRole HCL 0.25 MG TABLET PO SCH (20:27)
[2022-11-09] MEDS: ATORVASTATIN 40 MG TAB PO SCH (20:27)
[2022-11-09] MEDS: MIRTAZAPINE TAB 15 MG TAB PO SCH (20:27)
[2022-11-09] MEDS: traZODone HCL 50 MG TAB PO SCH ×2 (20:30)
--- NOTE | 2022-11-09 23:13 | Electrocardiogram Report ---
Test Reason : Blood Pressure : / mmHG Vent. Rate : 120 BPM Atrial Rate : 131 BPM P-R Int : 000 ms QRS Dur : 098 ms QT Int : 326 ms P-R-T Axes : 000 063 230 degrees QTc Int : 460 ms Atrial fibrillation with rapid ventricular response Abnormal ECG When compared with ECG of 05-NOV-2022 11:27, Atrial fibrillation has replaced Sinus rhythm ST now depressed in Inferior leads ST now depressed in Anterior leads T wave inversion now evident in Inferior leads Confirmed by Kaz Xie ([id number] on 11/09/2022 11:13:22 PM Referred By: REFERRED SELF Confirmed By:Kaz Xie
[2022-11-09] MEDS: ACETAMINOPHEN 325 MG TAB PO PRN (23:15)
--- NOTE | 2022-11-09 23:15 | Electrocardiogram Report ---
Test Reason : Blood Pressure : / mmHG Vent. Rate : 121 BPM Atrial Rate : 133 BPM P-R Int : 000 ms QRS Dur : 094 ms QT Int : 352 ms P-R-T Axes : 000 056 -67 degrees QTc Int : 499 ms Poor data quality, interpretation may be adversely affected Atrial fibrillation with rapid ventricular response Prolonged QT Abnormal ECG When compared with ECG of 08-NOV-2022 12:09, T wave inversion no longer evident in Anterior leads Confirmed by Kaz Xie ([id number]) on 11/09/2022 11:14:27 PM Referred By: REFERRED SELF Confirmed By:Kaz Xie
--- NOTE | 2022-11-09 23:16 | Electrocardiogram Report ---
Test Reason : Blood Pressure : / mmHG Vent. Rate : 088 BPM Atrial Rate : 088 BPM P-R Int : 166 ms QRS Dur : 090 ms QT Int : 376 ms P-R-T Axes : 049 046 008 degrees QTc Int : 454 ms Normal sinus rhythm Nonspecific ST and T wave abnormality Abnormal ECG When compared with ECG of 08-NOV-2022 19:20, Sinus rhythm has replaced Atrial fibrillation ST no longer depressed in Inferior leads ST no longer depressed in Anterior leads Nonspecific T wave abnormality now evident in Anterior leads Confirmed by Kaz Xie ([id number]) on 11/09/2022 11:15:36 PM Referred By: REFERRED SELF Confirmed By:Kaz Xie
[2022-11-10 06:44] LABS: Hematocrit (blood only) 28.5 % (34.1-44.9); Hemoglobin 9.3 g/dl (12.0-16.0); Mean Corpuscular Hemoglobin 29.3 pg (25.0-34.0); Mean Corpuscular Hgb Conc 32.6 g/dL (32.0-36.0); Mean Corpuscular Volume 89.9 fL (80.0-100.0); Mean Platelet Volume 9.6 fL (9.4-12.3); Platelet Count 341 K/uL (130-400); RDW Standard Deviation 46.3 fL (36.4-46.3); Red Blood Count 3.17 M/uL (3.93-5.22); White Blood Count 12.72 K/ul (4.8-10.8)
[2022-11-10 07:22] LABS: BUN Creatinine Ratio 11.1 (10-20); Calcium 7.3 mg/dl (8.5-10.1); Creatinine Clr Calc Pharmacy 101.7 ml/min; Est GFR (Non-African American) 100.1 ml/min; Potassium 3.1 mmol/L (3.5-5.1)
[2022-11-10] MEDS ORDERED: SODIUM CHLORIDE 0.9% 1000ML 1,000 ML IV ONE (07:47)
[2022-11-10] MEDS: PANTOprazole 40 MG in SYRINGE 0 ML IV SCH ×2 (09:37→20:22)
[2022-11-10] MEDS: POTASSIUM CHLORIDE 20 MEQ/15 ML UDC PO SCH ×2 (09:37→20:23)
[2022-11-10] MEDS: POTASSIUM CHLORIDE / WTR 10 MEQ/100 ML PLCT IV SCH ×2 (09:37→10:01)
[2022-11-10] MEDS: AMIODARONE 200 MG TAB PO SCH ×2 (09:38→18:02)
[2022-11-10] MEDS: METOPROLOL SUCC 50MG EXT REL TAB PO SCH (09:38)
[2022-11-10] MEDS: FERROUS SULFATE 325 MG TAB PO SCH (09:39)
[2022-11-10] MEDS: MAGNESIUM OXIDE 400 MG TAB PO SCH (09:39)
[2022-11-10] MEDS: DULoxetine HCL 30 MG CAP PO SCH (09:39)
[2022-11-10] MEDS: ASPIRIN 81 MG ECTAB PO SCH (09:40)
[2022-11-10] MEDS: CYANOCOBALAMIN (B-12) 500 MCG TABLET PO SCH (09:40)
[2022-11-10] MEDS: CHOLECALCIFEROL 1,000 UNITS 25 MCG TAB PO SCH (09:40)
[2022-11-10] MEDS: UMECLIDINIUM BROMIDE 62.5MCG/BLISTER 7 PUFFS/INHALER INH SCH (09:41)
[2022-11-10] MEDS: FLUTICASONE FUROATE 200MCG 14 PUFFS/INHALER INH SCH (09:41)
[2022-11-10] MEDS: ACETAMINOPHEN 325 MG TAB PO PRN (09:42)
[2022-11-10] MEDS: FAMOTIDINE 20 MG in SYRINGE 3 ML IV SCH ×2 (09:42→20:27)
[2022-11-10] MEDS: NICOTINE 21 MG/24 HR TDSY TD SCH (09:42)
--- NOTE | 2022-11-10 12:47 | Hospitalist Progress Note ---
Date of Service November 10, 2022 Assessment & Plan (1) Atrial fibrillation with RVR: Plan: Patient is a 72 yr female with H/O CAD S/P CABG, stent, PAF on Eliquis, CM [EF 55 to 60% on TTE 2017], PVD, TIA, HTN, HLD, Williamson's esophagus, recent diagnosis of esophageal adenocarcinoma 09/03/22, prediabetes, chronic anemia [baseline hemoglobin 9-10], ongoing tobacco abuse presented to our ED 09/17 with complaint of SVT, Nausea and vomiting. Of note, during recent EGD/EUS attempt on Oct 17, she had SVT and procedure aborted. She was off of metoprolol for 2 days. She was in oncology office on the day of arrival where she vomited/nauseous and went in SVT; hence presented to ED. She is being managed for the following: Esophageal adenocarcinoma Gastritis, esophagitis Nausea/vomiting due to above Follows with Dr De Leon and Dr Ni Lower GI bleed: BRBPR w/ stool 11/01 Ongoing tobacco use disorder --Diagnosed with esophageal adenocarcinoma 09/03/2022, was undergoing EGD/EUS on October 17 as part of onco w/u which was aborted due to SVT. --CT ABD:The partially visualized distal esophagus/gastric pull-through is markedly thick walled and edematous. This could represent a severe gastritis/esophagitis or possibly a mass lesion. Clinical correlation will be required and endoscopy could be considered for further assessment. There is a 12 mm focal outpouching of the distal esophagus/gastric pull-through versus necrotic paraesophageal lymph node. Trace right pleural effusion with associated pleural thickening. This was also seen in 2016. No acute infectious or inflammatory findings are identified in the abdomen or pelvis. --CTA:No evidence of pulmonary embolism. Postsurgical changes of esophageal resection and gastric pull-through. --11/04 EUS: Distal esophageal circumferential malignancy staged T3 N0 Mx by e ndosonographic criteria. Patient is very high risk for massive upper GI bleeding if she is using anticoagulation due to ongoing blood oozing of the large esophageal cancer. --11/06 EGD scope:Obstructing/malignant esophageal tumor in the lower third of the esophagus. Esophageal stent placed. -- Clear liquid diet advance to full liquids. Advance to post stent special diet in 2 days --Continue Protonix, Pepcid -- Aspirin restarted on 11/09/22 -- Eliquis on hold indefinitely due to high risk for upper GI bleed --Appreciate GI, oncology input --Monitor H&H and transfuse PRBCs as needed --Needs follow-up with GI, oncology upon discharge --Encourage to increase oral intake -- Palliative care consulted to address goals of care. Dehydration Suspected sepsis Leukocytosis likely secondary to malignancy No obvious source of infection Blood cultures negative IV antibiotics discontinued Mild Troponin elevation Likely demand ischemia secondary to tachycardia SVT Afib RVR H/O Orthostatic hypotension 09/18/2022 ECHO: EF 60 to 65%, grade 2 diastolic dysfunction. Moderate concentric LVH. 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 CAD S/P CABG/stent PVD TIA Continue aspirin, statin, beta-yair HLD on statin H/O Williamson's esophagus Chronic anemia Prediabetes Continue home meds DVT Px: SCDs Code Status Full code Admission and Anticipated Discharge Date Admission Date: October 31, 2022 Subjective Patient is seen and examined at bedside States feeling better today No new complaints Heartburn and odynophagia improving Denies chest pain, palpitations, dyspnea, dizziness, nausea, abd pain Ate better today as per patient Review of Systems Review of Systems: All systems reviewed & are unremarkable except as noted in Subjective Physical Exam Physical Exam: Physical Exam: Vitals signs as noted above General Appearance:Thin, chronic ill, no apparent distress Head: normocephalic, Atraumatic Eyes: normal inspection, EOMI Neck: supple, Trachea midline Respiratory/Chest: Decreased breath sounds, CTA, R port, No accessory muscle use Cardiovascular: S1, S2, No murmur Abdomen/GI:Soft, Non tender, Bowel sounds present Extremities/Musculoskeletal:normal inspection, no edema Neurologic/Psych:AAOX3, grossly no focal neurological deficits Skin: normal color, warm Results & Data Results & Data ([facility]) Vital Signs (Past 12 Hours) Vital Signs Temp Pulse Resp BP Pulse Ox O2 Del Method 11/10/22 11:11 36.5 C 75 18 151/79 H 95 Room Air 11/10/22 07:38 37 C 71 18 142/66 H 94 Room Air 11/10/22 04:43 74 15 134/74 93 Room Air 11/10/22 04:48 Room Air 11/10/22 04:35 74 15 134/74 93 Room Air 11/10/22 03:23 36.6 C 75 18 99/62 L 94 Room Air Laboratory Results Short CBC 11/10/22 Range/Units 05:58 WBC 12.72 H (4.8-10.8) K/ul Hgb 9.3 L (12.0-16.0) g/dl Hct 28.5 L (34.1-44.9) % Plt Count 341 (130-400) K/uL BMP 11/10/22 05:58 Sodium 137 Potassium 3.1 L Chloride 103 Carbon Dioxide 29 BUN 5 L Creatinine 0.45 L Glucose 103 H Calcium 7.3 L
--- NOTE | 2022-11-10 13:22 | Palliative Care Consultation ---
Date of Consultation November 10, 2022 Assessment & Plan (1) Nausea & vomiting: with esophageal cancer Some relief with zofran She also has prn compazine Could consider low dose olanzapine daily if this persists and is not responsive to prn medications (2) Palliative care encounter: I talked for 25 minutes with Mrs. Olivares about how she is coping with her illness. We talked about how she felt when she received the cancer diagnosis and she tells me that she was so shocked, she can't really remember how she felt. She is somewhat overwhelmed with her illness and complications but tells me that she is not worried about the future. "If the good Lord is willing, I will get through this". We talked about whether there were limits to what she would be willing to go through doing her treatment. She told me that she didn't feel that there were. The most important thing to her is her family, particularly, her children, grandchildren and great grandchildren. She wants to be alive as long as she can be to be with them and is willing to go through pretty much anything to do it. I asked her if she had considered whether God's plan may be for her not to get through this and she told me that she hadn't thought about that as a possibility. We also talked about who would make decisions for her if she were unable to do it. She would want her , Sae, to be her surrogate decision maker but told me that she hasn't really talked to him about what she would want. I encouraged her to do that. History of Present Illness Reason for Consultation: goals of care Requesting Physician: Dr. Willard Attending Physician: Gigi Willard MD History of Present Illness 72 yo lady with history CAD with MN, paroxysmal a fib, COPD, PVD and Williamson's esophagus. She was diagnosed with esophageal cancer and was found to have SVT during EGD. She is followed by cardiology and converted to NSR on amiodarone but has since reverted back to afib. She is currently rate controlled on amiodarone and metoprolol. Unfortunately, she has had lower gi bleeding and oozing from her tumor and her eliquis has been stopped. She did have an EGD on 11/08 with stent placement. She tells me that she is able to eat and drink without difficulty but has had frequent nausea and vomiting. She denies abdominal pain. She is taking sips of liquids during visit. She describes nausea as intermittent, worse after eating and sometimes associated with vomiting. This has been going on for weeks. She has had prn zofran and says that it does help, at least partially. Allergies Allergy/AdvReac Type Severity Reaction Status Date / Time sumatriptan AdvReac Unknown advised to Verified 10/29/22 10:13 avoid d/t hx heart surgery varenicline AdvReac Unknown advised to Verified 10/29/22 10:13 avoid d/t hx heart surgery Home Medications Medication Instructions Recorded Confirmed Type atorvastatin 80 mg tablet 80 mg PO HS 03/22/19 10/31/22 History duloxetine 30 mg capsule,delayed 30 mg PO QAM 03/22/19 10/31/22 History release (Cymbalta) trazodone 150 mg tablet 150 mg PO HS 03/22/19 10/31/22 History nitroglycerin 0.4 mg sublingual 0.4 mg sublingual UD PRN chest 06/24/19 10/31/22 History tablet pain #1 tab apixaban 5 mg tablet (Eliquis) 5 mg PO AMHS 09/18/22 10/31/22 History ondansetron 4 mg disintegrating 4 mg PO Q8H PRN nausea and 09/20/22 10/31/22 Rx tablet vomiting #60 tabs acetaminophen 500 mg tablet 500 mg PO Q4 PRN Pain 10/29/22 10/31/22 History (Tylenol Extra Strength) albuterol sulfate 2.5 mg/3 mL 2.5 mg inhalation Q4H PRN 10/29/22 10/31/22 History (0.083 %) solution for nebulization Abdominal Discomfort ferrous sulfate 325 mg (65 mg 325 mg PO DAILY 10/29/22 10/31/22 History iron) tablet (FeroSul) fluticasone propionate 220 2 puff inhalation BID PRN as 10/29/22 10/31/22 History mcg/actuation HFA aerosol inhaler directed (Flovent HFA) mecobalamin (vitamin B12) 1,000 1,000 mcg PO DAILY 10/29/22 10/31/22 History mcg lozenges ropinirole 0.25 mg tablet 0.5 mg PO HS 10/29/22 10/31/22 History tiotropium bromide 18 mcg capsule 1 cap inhalation DAILY PRN as 10/29/22 10/31/22 History with inhalation device (Spiriva directed with HandiHaler) aspirin 81 mg chewable tablet 81 mg PO DAILY 10/30/22 10/31/22 History cholecalciferol (vitamin D3) 25 25 mcg PO DAILY 10/30/22 10/31/22 History mcg (1,000 unit) capsule prochlorperazine maleate 5 mg 5 mg PO TID PRN nausea and 10/30/22 10/31/22 Rx tablet (Compazine) vomiting #30 tabs albuterol sulfate 90 mcg/actuation 2 puff inhalation Q4 PRN Wheezing 10/31/22 10/31/22 History aerosol inhaler magnesium oxide 400 mg PO DAILY 10/31/22 10/31/22 History metoprolol succinate 50 mg 50 mg PO DAILY 10/31/22 10/31/22 History tablet,extended release 24 hr mirtazapine 15 mg tablet 15 mg PO HS 10/31/22 10/31/22 History omeprazole 40 mg capsule,delayed 40 mg PO DAILYBB 10/31/22 10/31/22 History release Patient History Medical History Anxiety Barretts esophagus Chronic obstructive pulmonary disease CKD (chronic kidney disease), stage III Coronary artery disease CABG x 2 (2009) cardiac stent x 1 (2015 - LCx) Degenerative disc disease Depression Esophageal cancer Ganglion cyst Surgery on both wrists for this GERD (gastroesophageal reflux disease) controlled Hyperlipidemia Hypertension Learning disability cannot spell/limited reading skills Migraine "haven't had one in awhile" Myocardial Infarction "silent" MN- remote/several years ago Osteoarthritis PAD (peripheral artery disease) <50% aorta-iliac system stenosis per 09/26/19 duplex Paroxysmal atrial fibrillation Peripheral neuropathy LLE Port-A-Cath in place PVD (peripheral vascular disease) Stroke "silent" stroke noted incidentally on imaging several years ago, no residual issues Surgical History Fusion of spine LUMBAR ACDF C5-C7: 10/30/17: Grade view 1, MAC#3, ETT 7.0 at [facility] H/O esophagogastroduodenoscopy H/O shoulder surgery Left H/O sinus surgery History of bilateral tubal ligation History of cardiac cath CABG x 2 (2010); [place]; f/u dr kemp, or cardiac stent x 1 (2015 - LCx); [facility] History of carpal tunnel surgery History of cholecystectomy History of colonoscopy History of esophagogastroduodenoscopy (EGD) History of Lauren fundoplication History of surgery Reconstruction of pyloris History of surgery Paraesophageal hernia repair with mesh in 2017 History of tonsillectomy History of tooth extraction History of total abdominal hysterectomy and bilateral salpingo-oophorectomy History of total hip arthroplasty LEFT History of total knee replacement RT/LEFT Removal of knee prosthesis S/P CABG (coronary artery bypass graft) Family History Father , 73yo Myocardial infarction Mother , in her 80s Breast cancer Myocardial infarction Brother Natural with unknown cause Brother Natural with unknown cause Brother No problems noted. Brother No problems noted. Sister Breast cancer Sister No problems noted. Sister No problems noted. Sister No problems noted. Son No problems noted. Daughter No problems noted. Daughter No problems noted. Daughter No problems noted. 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 Feels Safe at Home: Yes caffeine: No during the past year weight has: remained stable Assistive Devices: Walker Review of Systems Review of Systems: ESAS Pain 0/3 Dyspnea 0/3 NAusea 1/3 Anxiety 0/3 Drowsiness 1/3 Physical Exam Constitutional: + thin and + frail appearing Respiratory: normal respiratory effort; no labored breathing Cardiovascular: Rate/Rhythm: + irregularly irregular Gastrointestinal (Abdomen): soft, normal BS, mild epigastric tenderness Musculoskeletal: Extremities: + muscle atrophy Skin: warm and dry Neurologic: Speech / Cognition: normal cognition Psychiatric: Affect: + flat affect Results & Data ([facility]) Vital Signs (Past 12 Hours) Vital Signs Temp Pulse Resp BP Pulse Ox O2 Del Method 11/10/22 11:11 97.7 F 75 18 151/79 H 95 Room Air 11/10/22 07:38 98.6 F 71 18 142/66 H 94 Room Air 11/10/22 04:43 74 15 134/74 93 Room Air 11/10/22 04:48 Room Air 11/10/22 04:35 74 15 134/74 93 Room Air 11/10/22 03:23 97.9 F 75 18 99/62 L 94 Room Air PG Care Time/CCT Total # of Minutes Spent Total Time Spent with Patient: Total time spent is greater than 50% in coordination of care (as documented) at patient's floor/unit and/or counseling patient: Advanced Care Planning 02278 Advanced Care Planning 30 Min Coding Level of Care Code 43444 Initial Inpt Care Lvl 2 Diagnoses Nausea & vomiting R11.2 Palliative care encounter Z51.5 Additional Codes Advanced Care Planning - 19565 Advanced Care Planning 30 Min: 55883 Advanced Care Planning 30 Min ([id number])
[2022-11-10] MEDS: traZODone HCL 50 MG TAB PO SCH (20:22)
[2022-11-10] MEDS: ATORVASTATIN 40 MG TAB PO SCH (20:23)
[2022-11-10] MEDS: MIRTAZAPINE TAB 15 MG TAB PO SCH (20:24)
[2022-11-10] MEDS: rOPINIRole HCL 0.25 MG TABLET PO SCH (20:24)
[2022-11-11] MEDS: CYANOCOBALAMIN (B-12) 500 MCG TABLET PO SCH (07:47)
[2022-11-11] MEDS: METOPROLOL SUCC 50MG EXT REL TAB PO SCH (07:47)
[2022-11-11] MEDS: MAGNESIUM OXIDE 400 MG TAB PO SCH (07:47)
[2022-11-11] MEDS: DULoxetine HCL 30 MG CAP PO SCH (07:48)
[2022-11-11] MEDS: FERROUS SULFATE 325 MG TAB PO SCH (07:48)
[2022-11-11] MEDS: PANTOprazole 40 MG in SYRINGE 0 ML IV SCH ×2 (07:48→20:09)
[2022-11-11] MEDS: AMIODARONE 200 MG TAB PO SCH ×2 (07:48→17:05)
[2022-11-11] MEDS: NICOTINE 21 MG/24 HR TDSY TD SCH (07:48)
[2022-11-11] MEDS: ASPIRIN 81 MG ECTAB PO SCH (07:48)
[2022-11-11] MEDS: CHOLECALCIFEROL 1,000 UNITS 25 MCG TAB PO SCH (07:48)
[2022-11-11] MEDS: UMECLIDINIUM BROMIDE 62.5MCG/BLISTER 7 PUFFS/INHALER INH SCH (07:49)
[2022-11-11] MEDS: FLUTICASONE FUROATE 200MCG 14 PUFFS/INHALER INH SCH (07:49)
[2022-11-11] MEDS: FAMOTIDINE 20 MG in SYRINGE 3 ML IV SCH ×2 (07:53→20:11)
[2022-11-11 08:34] LABS: BUN Creatinine Ratio 11.4 (10-20); Calcium 7.6 mg/dl (8.5-10.1); Est GFR (African American) 116.9 ml/min; Est GFR (Non-African American) 100.8 ml/min; Magnesium 1.8 mg/dl (1.7-2.4)
[2022-11-11] MEDS: HEPARIN 100 UNIT/ML 5ML FLUSH FLUSH PRN (11:46)
--- NOTE | 2022-11-11 14:54 | Hospitalist Progress Note ---
Date of Service November 11, 2022 Assessment & Plan (1) Atrial fibrillation with RVR: Plan: Patient is a 72 yr female with H/O CAD S/P CABG, stent, PAF on Eliquis, CM [EF 55 to 60% on TTE 2017], PVD, TIA, HTN, HLD, Williamson's esophagus, recent diagnosis of esophageal adenocarcinoma 09/03/22, prediabetes, chronic anemia [baseline hemoglobin 9-10], ongoing tobacco abuse presented to our ED 09/17 with complaint of SVT, Nausea and vomiting. Of note, during recent EGD/EUS attempt on Oct 17, she had SVT and procedure aborted. She was off of metoprolol for 2 days. She was in oncology office on the day of arrival where she vomited/nauseous and went in SVT; hence presented to ED. She is being managed for the following: Esophageal adenocarcinoma Gastritis, esophagitis Nausea/vomiting due to above Follows with Dr De Leon and Dr Ni Lower GI bleed: BRBPR w/ stool 11/01 Ongoing tobacco use disorder --Diagnosed with esophageal adenocarcinoma 09/03/2022, was undergoing EGD/EUS on October 17 as part of onco w/u which was aborted due to SVT. --CT ABD:The partially visualized distal esophagus/gastric pull-through is markedly thick walled and edematous. This could represent a severe gastritis/esophagitis or possibly a mass lesion. Clinical correlation will be required and endoscopy could be considered for further assessment. There is a 12 mm focal outpouching of the distal esophagus/gastric pull-through versus necrotic paraesophageal lymph node. Trace right pleural effusion with associated pleural thickening. This was also seen in 2016. No acute infectious or inflammatory findings are identified in the abdomen or pelvis. --CTA:No evidence of pulmonary embolism. Postsurgical changes of esophageal resection and gastric pull-through. --11/04 EUS: Distal esophageal circumferential malignancy staged T3 N0 Mx by e ndosonographic criteria. Patient is very high risk for massive upper GI bleeding if she is using anticoagulation due to ongoing blood oozing of the large esophageal cancer. --11/06 EGD scope:Obstructing/malignant esophageal tumor in the lower third of the esophagus. Esophageal stent placed. --Continue Protonix, Pepcid -- Aspirin restarted on 11/09/22 -- Eliquis on hold indefinitely due to high risk for upper GI bleed --Appreciate GI, oncology input --Monitor H&H and transfuse PRBCs as needed --Needs follow-up with GI, oncology upon discharge --Encourage to increase oral intake --Appreciate Palliative care Input --Advanced to Minced and Moist diet --Appreciate Speech therapy recommendations --Will request PT/OT to re-eval Dehydration Suspected sepsis Leukocytosis likely secondary to malignancy No obvious source of infection Blood cultures negative IV antibiotics discontinued Mild Troponin elevation Likely demand ischemia secondary to tachycardia SVT Afib RVR H/O Orthostatic hypotension 09/18/2022 ECHO: EF 60 to 65%, grade 2 diastolic dysfunction. Moderate concentric LVH. 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 CAD S/P CABG/stent PVD TIA Continue aspirin, statin, beta-yair HLD on statin H/O Williamson's esophagus Chronic anemia Prediabetes Continue home meds DVT Px: SCDs Code Status Full code Disposition PT/OT prior to discharge Admission and Anticipated Discharge Date Admission Date: October 31, 2022 Subjective Patient is seen and examined at bedside No new complaints Denies chest pain, palpitations, dyspnea, dizziness, nausea, abd pain Advance diet today Needs PT/OT re eval Review of Systems Review of Systems: All systems reviewed & are unremarkable except as noted in Subjective Physical Exam Physical Exam: Physical Exam: Vitals signs as noted above General Appearance:Thin, chronic ill, no apparent distress Head: normocephalic, Atraumatic Eyes: normal inspection, EOMI Neck: supple, Trachea midline Respiratory/Chest: Decreased breath sounds, CTA, R port, No accessory muscle use Cardiovascular: S1, S2, No murmur Abdomen/GI:Soft, Non tender, Bowel sounds present Extremities/Musculoskeletal:normal inspection, no edema Neurologic/Psych:AAOX3, grossly no focal neurological deficits Skin: normal color, warm Results & Data Results & Data ([facility]) Vital Signs (Past 12 Hours) Vital Signs Temp Pulse Pulse Resp BP Pulse Ox O2 Del Method 11/11/22 11:06 36.9 C 80 18 123/76 94 Room Air 11/11/22 08:00 Room Air 11/11/22 08:00 83 11/11/22 07:09 36.9 C 87 18 143/84 H 94 Room Air 11/11/22 03:39 36.7 C 77 18 133/81 93 Room Air
[2022-11-11] MEDS: ACETAMINOPHEN 325 MG TAB PO PRN (15:44)
[2022-11-11] MEDS: rOPINIRole HCL 0.25 MG TABLET PO SCH (20:09)
[2022-11-11] MEDS: traZODone HCL 50 MG TAB PO SCH (20:09)
[2022-11-11] MEDS: MIRTAZAPINE TAB 15 MG TAB PO SCH (20:10)
[2022-11-11] MEDS: ATORVASTATIN 40 MG TAB PO SCH (20:10)
[2022-11-12 06:12] LABS: Hematocrit (blood only) 30.1 % (34.1-44.9); Hemoglobin 9.7 g/dl (12.0-16.0); Mean Corpuscular Hgb Conc 32.2 g/dL (32.0-36.0); Mean Corpuscular Volume 90.1 fL (80.0-100.0); Mean Platelet Volume 9.9 fL (9.4-12.3); Platelet Count 373 K/uL (130-400); RDW Coefficient of Variation 13.8 % (11.5-14.5); RDW Standard Deviation 45.1 fL (36.4-46.3); Red Blood Count 3.34 M/uL (3.93-5.22); White Blood Count 14.32 K/ul (4.8-10.8)
[2022-11-12 06:46] LABS: BUN Creatinine Ratio 14.6 (10-20); Calcium 7.3 mg/dl (8.5-10.1); Creatinine Clr Calc Pharmacy 95.3 ml/min; Est GFR (African American) 113.6 ml/min; Potassium 3.7 mmol/L (3.5-5.1)
[2022-11-12] MEDS: PANTOprazole 40 MG in SYRINGE 0 ML IV SCH (07:58)
[2022-11-12] MEDS: METOPROLOL SUCC 50MG EXT REL TAB PO SCH (07:59)
[2022-11-12] MEDS: ASPIRIN 81 MG ECTAB PO SCH (07:59)
[2022-11-12] MEDS: CYANOCOBALAMIN (B-12) 500 MCG TABLET PO SCH (07:59)
[2022-11-12] MEDS: FAMOTIDINE 20 MG in SYRINGE 3 ML IV SCH (07:59)
[2022-11-12] MEDS: NICOTINE 21 MG/24 HR TDSY TD SCH (07:59)
[2022-11-12] MEDS: DULoxetine HCL 30 MG CAP PO SCH (07:59)
[2022-11-12] MEDS: CHOLECALCIFEROL 1,000 UNITS 25 MCG TAB PO SCH (07:59)
[2022-11-12] MEDS: AMIODARONE 200 MG TAB PO SCH (07:59)
[2022-11-12] MEDS: MAGNESIUM OXIDE 400 MG TAB PO SCH (07:59)
[2022-11-12] MEDS: FERROUS SULFATE 325 MG TAB PO SCH (07:59)
[2022-11-12] MEDS: FLUTICASONE FUROATE 200MCG 14 PUFFS/INHALER INH SCH (08:00)
[2022-11-12] MEDS: UMECLIDINIUM BROMIDE 62.5MCG/BLISTER 7 PUFFS/INHALER INH SCH (08:00)
--- NOTE | 2022-11-12 12:37 | Hospitalist Progress Note ---
Date of Service November 12, 2022 Assessment & Plan (1) Atrial fibrillation with RVR: Plan: Patient is a 72 yr female with H/O CAD S/P CABG, stent, PAF on Eliquis, CM [EF 55 to 60% on TTE 2017], PVD, TIA, HTN, HLD, Williamson's esophagus, recent diagnosis of esophageal adenocarcinoma 09/03/22, prediabetes, chronic anemia [baseline hemoglobin 9-10], ongoing tobacco abuse presented to our ED 09/17 with complaint of SVT, Nausea and vomiting. Of note, during recent EGD/EUS attempt on Oct 17, she had SVT and procedure aborted. She was off of metoprolol for 2 days. She was in oncology office on the day of arrival where she vomited/nauseous and went in SVT; hence presented to ED. She is being managed for the following: Esophageal adenocarcinoma Gastritis, esophagitis Nausea/vomiting due to above Follows with Dr De Leon and Dr Ni Lower GI bleed: BRBPR w/ stool 11/01 Ongoing tobacco use disorder --Diagnosed with esophageal adenocarcinoma 09/03/2022, was undergoing EGD/EUS on October 17 as part of onco w/u which was aborted due to SVT. --CT ABD:The partially visualized distal esophagus/gastric pull-through is markedly thick walled and edematous. This could represent a severe gastritis/esophagitis or possibly a mass lesion. Clinical correlation will be required and endoscopy could be considered for further assessment. There is a 12 mm focal outpouching of the distal esophagus/gastric pull-through versus necrotic paraesophageal lymph node. Trace right pleural effusion with associated pleural thickening. This was also seen in 2016. No acute infectious or inflammatory findings are identified in the abdomen or pelvis. --CTA:No evidence of pulmonary embolism. Postsurgical changes of esophageal resection and gastric pull-through. --11/04 EUS: Distal esophageal circumferential malignancy staged T3 N0 Mx by e ndosonographic criteria. Patient is very high risk for massive upper GI bleeding if she is using anticoagulation due to ongoing blood oozing of the large esophageal cancer. --11/06 EGD scope:Obstructing/malignant esophageal tumor in the lower third of the esophagus. Esophageal stent placed. --Continue Protonix, Pepcid -- Aspirin restarted on 11/09/22 -- Eliquis on hold indefinitely due to high risk for upper GI bleed --Appreciate GI, oncology input --Monitor H&H and transfuse PRBCs as needed --Needs follow-up with GI, oncology upon discharge --Encourage to increase oral intake --Appreciate Palliative care Input --Appreciate Speech therapy recommendations --Patient not interested in Rehab --Tolerating Minced and Moist diet --Plan to discharge home today Dehydration Suspected sepsis Leukocytosis likely secondary to malignancy No obvious source of infection Blood cultures negative IV antibiotics discontinued Mild Troponin elevation Likely demand ischemia secondary to tachycardia SVT Afib RVR H/O Orthostatic hypotension 09/18/2022 ECHO: EF 60 to 65%, grade 2 diastolic dysfunction. Moderate concentric LVH. -Converted to sinus rhythm IV amiodarone discontinued Continue metoprolol 50 mg daily Not a candidate for anticoagulation Appreciate cardiology input Needs follow-up with cardiology upon discharge Eliquis held indefinitely Plan to continue amiodarone 400 mg twice a day for 4 more days and then transition to 200 mg twice daily Needs follow-up with cardiology in 1 week upon discharge Hypokalemia Replace replace as needed Ongoing tobacco use [place] to quit smoking CAD S/P CABG/stent PVD TIA Continue aspirin, statin, beta-yair HLD on statin H/O Williamson's esophagus Chronic anemia Prediabetes Continue home meds DVT Px: SCDs Code Status Full code Disposition Home with Home Health Admission and Anticipated Discharge Date Admission Date: October 31, 2022 Subjective Patient is seen and examined at bedside States feeling better today Tolerating diet Reports minimal heart burn intermittently Denies chest pain, palpitations, dyspnea, dizziness, nausea, abd pain Not interested in Rehab Discussed with Patient's daughter at bedside Review of Systems Review of Systems: All systems reviewed & are unremarkable except as noted in Subjective Physical Exam Physical Exam: Physical Exam: Vitals signs as noted above General Appearance:Thin, chronic ill, no apparent distress Head: normocephalic, Atraumatic Eyes: normal inspection, EOMI Neck: supple, Trachea midline Respiratory/Chest: Decreased breath sounds, CTA, R port, No accessory muscle use Cardiovascular: S1, S2, No murmur Abdomen/GI:Soft, Non tender, Bowel sounds present Extremities/Musculoskeletal:normal inspection, no edema Neurologic/Psych:AAOX3, grossly no focal neurological deficits Skin: normal color, warm Results & Data Results & Data ([facility]) Vital Signs (Past 12 Hours) Vital Signs Temp Pulse Pulse Resp BP Pulse Ox O2 Del Method 11/12/22 11:09 36.7 C 69 18 106/58 L 96 Room Air 11/12/22 08:00 82 11/12/22 08:00 Room Air 11/12/22 06:58 36.8 C 68 18 116/67 94 Room Air 11/12/22 03:08 36.8 C 68 18 116/68 95 Room Air Laboratory Results Short CBC 11/12/22 Range/Units 05:25 WBC 14.32 H (4.8-10.8) K/ul Hgb 9.7 L (12.0-16.0) g/dl Hct 30.1 L (34.1-44.9) % Plt Count 373 (130-400) K/uL BMP 11/12/22 05:25 Sodium 136 Potassium 3.7 Chloride 103 Carbon Dioxide 30 BUN 7 Creatinine 0.48 L Glucose 103 H Calcium 7.3 L
--- NOTE | 2022-11-12 13:27 | Discharge Summary ---
Date of Service November 12, 2022 Admission HPI Per Admitting Provider CHIEF COMPLAINT: Nausea, SVT and rapid AFib. HISTORY OF PRESENT ILLNESS: A 72-year-old female with past medical history significant for CAD, status post CABG, status post stent, paroxysmal atrial fibrillation, on Eliquis, history of resolved cardiomyopathy, , history of peripheral vascular disease, history of TIA, hypertension, hyperlipidemia, history of Williamson's esophagus, recent diagnosis of esophageal adenocarcinoma, history of prediabetes, chronic anemia, baseline hemoglobin 9-10, history of tobacco abuse, used to smoke 1-2 packs of cigarettes daily, currently on nicotine patch, currently smoking 1-2 cigarettes daily. The patient was recently diagnosed with esophageal adenocarcinoma, diagnosed on 09/03/2022.Recently on 10/17/2022 when she was in suite for EGD, she was off of metoprolol succinate for 2 days and she went into PSVT at a rate of 170 beats per minute. She was given IV Lopressor and her heart rate improved. Seen by cardiology and her metoprolol succinate was increased to 50 mg daily from 25. Today, she was at radiation oncology office, the patient felt nauseous, vomited 3 times. No blood in the vomitus and she was feeling sick, heart racing and she was brought into the ER. In the ER when she came in she was in SVT at rate of 191. She was given 6 mg of iv adenosine she converted to sinus tachycardia but soon went into rapid AFib, rate of 140s and she was started on Cardizem drip, currently rate controlled with the Cardizem drip, resting comfortably. Denies any chest pain. Currently no headache, no dizziness, no blurred visions, no earache. She has runny nose for a couple of months. No sore throat. No cough. She is eating and swallowing okay. She says she is on a regular diet. No abdominal pain. Normal bladder movements. No swelling in the legs. She ambulates without support, lives with her . Admission Exam Per Admitting Provider PHYSICAL EXAMINATION: GENERAL: The patient is of moderate build, not in acute distress. VITAL SIGNS: Temperature, currently afebrile, pulse currently 96, respiratory rate 16, blood pressure 125/75, oxygen 95% on room air. HEENT: Pupils equal, round and reactive to light. Oral mucosa moist. NECK: No JVD. No neck masses. CARDIOVASCULAR: S1 and S2 heard, regular rate and rhythm. No murmur, no gallop. RESPIRATORY SYSTEM: Normal AP diameter. No accessory muscle use. No wheezing, no crackles. ABDOMEN: Soft, bowel sounds present. Nontender. CENTRAL NERVOUS SYSTEM: Cranial nerves II through XII grossly intact, nonfocal. EXTREMITIES: No edema, no erythema. Principal Diagnosis Atrial fibrillation with rapid ventricular response Esophageal adenocarcinoma Gastritis Esophagitis Discharge Data Allergies Allergy/AdvReac Type Severity Reaction Status Date / Time sumatriptan AdvReac Unknown advised to Verified 10/29/22 10:13 avoid d/t hx heart surgery varenicline AdvReac Unknown advised to Verified 10/29/22 10:13 avoid d/t hx heart surgery Consultations 10/31/22 17:52 ED Decision to Admit Stat 11/01/22 08:00 Consult Cardiology Routine Consult Gastroenterology Routine 11/04/22 16:16 Consult Radiation Oncology Routine 11/10/22 07:35 Consult Palliative Care Routine Procedures Performed Operation Date: 11/04/22 13:15 Actual Procedures p Endoscopic Ultrasonography Upper - Rosangela Colbert MD s Esophagogastroduodenoscopy - Rosangela Colbert MD Operation Date: 11/06/22 07:40 Actual Procedures p Esophagogastroduodenoscopy with Esophagogastroduodenoscopy stent placement(Not Applicable) - Rosangela Colbert MD Operation Date: 11/06/22 16:30 <No data on this case meets the specified criteria> Ordered Studies 10/31/22 14:38 CT Abd and Pelvis [CT abd pelvis IV con only] Stat 10/31/22 15:58 CT angio chest PE protocol Stat 11/04/22 16:11 US upper EUS PACS images Routine 11/06/22 FL esophageal dilatation Routine 11/07/22 10:20 CT guide rad therapy chest Routine Laboratory Results WBC 14.32 K/ul (4.8-10.8) H 11/12/22 05:25 RBC 3.34 M/uL (3.93-5.22) L 11/12/22 05:25 Hgb 9.7 g/dl (12.0-16.0) L 11/12/22 05:25 Hct 30.1 % (34.1-44.9) L 11/12/22 05:25 MCV 90.1 fL (80.0-100.0) 11/12/22 05:25 MCH 29.0 pg (25.0-34.0) 11/12/22 05:25 MCHC 32.2 g/dL (32.0-36.0) 11/12/22 05:25 RDW Std Deviation 45.1 fL (36.4-46.3) 11/12/22 05:25 RDW Coeff of Cassi 13.8 % (11.5-14.5) 11/12/22 05:25 Plt Count 373 K/uL (130-400) 11/12/22 05:25 MPV 9.9 fL (9.4-12.3) 11/12/22 05:25 Immature Gran % (Auto) 1.1 % 11/01/22 05:32 Neut % (Auto) 73.3 % 11/01/22 05:32 Lymph % (Auto) 16.2 % 11/01/22 05:32 [place] % (Auto) 8.9 % 11/01/22 05:32 Eos % (Auto) 0.3 % 11/01/22 05:32 Baso % (Auto) 0.2 % 11/01/22 05:32 Neut # (Auto) 8.03 K/uL (1.4-6.5) H 11/01/22 05:32 Lymph # (Auto) 1.78 K/uL (1.2-3.4) 11/01/22 05:32 [place] # (Auto) 0.98 K/uL (0.24-0.82) H 11/01/22 05:32 Eos # (Auto) 0.03 K/uL (0-0.50) 11/01/22 05:32 Baso # (Auto) 0.02 K/uL (0-0.2) 11/01/22 05:32 Immature Gran # (Auto) 0.12 K/uL (0.00-0.02) H 11/01/22 05:32 Absolute Nucleated RBC Cancelled 11/07/22 06:56 Nucleated RBC % (auto) Cancelled 11/07/22 06:56 Platelet Estimate Cancelled 11/07/22 06:56 PT 12.0 Seconds (9.0-12.0) 11/09/22 07:48 INR 1.1 (0.9-1.1) 11/09/22 07:48 APTT 34.2 Seconds (21.0-31.0) H 10/31/22 14:20 PTT Ratio 1.2 10/31/22 14:20 Sodium 136 mmol/L (136-145) 11/12/22 05:25 Potassium 3.7 mmol/L (3.5-5.1) 11/12/22 05:25 Chloride 103 mmol/L (98-107) 11/12/22 05:25 Carbon Dioxide 30 mmol/L (21-32) 11/12/22 05:25 Anion Gap 3 (3-11) 11/12/22 05:25 BUN 7 mg/dl (6-23) 11/12/22 05:25 Creatinine 0.48 mg/dl (0.6-1.2) L 11/12/22 05:25 Est Cr Clr Drug Dosing 95.3 ml/min 11/12/22 05:25 Est GFR ( Amer) 113.6 ml/min 11/12/22 05:25 Est GFR (Non-Af Amer) 98.0 ml/min 11/12/22 05:25 BUN/Creatinine Ratio 14.6 (10-20) 11/12/22 05:25 Glucose 103 mg/dl (70-99(Fasting)) H 11/12/22 05:25 POC Glucose 140 mg/dl (70-99) H 11/08/22 19:15 Estimat Average Glucose 108 mg/dl 11/01/22 05:32 Hemoglobin A1c 5.4 % (4.5-5.6) 11/01/22 05:32 Lactate 1.1 mmol/L (0.4-2.0) 10/31/22 18:51 Calcium 7.3 mg/dl (8.5-10.1) L 11/12/22 05:25 Phosphorus 3.3 mg/dl (2.5-4.9) 11/09/22 07:48 Magnesium 1.8 mg/dl (1.7-2.4) 11/11/22 07:18 Total Bilirubin 0.4 mg/dl (0.2-1.0) 11/09/22 07:48 AST 13 U/L (13-39) 11/09/22 07:48 ALT 6 U/L (7-52) L 11/09/22 07:48 Alkaline Phosphatase 75 U/L (34-104) 11/09/22 07:48 Troponin I High Sens 13.4 pg/ml (0-14) 11/08/22 12:53 Total Protein 4.5 gm/dl (6.0-8.3) L 11/09/22 07:48 Albumin 2.2 gm/dl (3.4-5.0) L 11/09/22 07:48 Globulin 2.3 gm/dl (2.5-4.0) L 11/09/22 07:48 Albumin/Globulin Ratio 1.0 (0.9-2) 11/09/22 07:48 Lipase 20 U/L (11-82) 10/31/22 14:20 Procalcitonin 0.12 ng/ml (0-0.5) 11/01/22 11:27 Urine Color Yellow 10/31/22 19:30 Urine Appearance Clear (Clear) 10/31/22 19:30 Urine pH 6.0 (4.5-7.5) 10/31/22 19:30 Ur Specific [place] 1.044 (1.000-1.030) H 10/31/22 19:30 Urine Protein Negative (Negative) 10/31/22 19:30 Urine Glucose (UA) Negative (Negative) 10/31/22 19:30 Urine Ketones Negative (Negative) 10/31/22 19:30 Urine Blood Negative (Negative) 10/31/22 19:30 Urine Nitrite Negative (Negative) 10/31/22 19:30 Urine Bilirubin Negative (Negative) 10/31/22 19:30 Urine Urobilinogen Negative (Negative) 10/31/22 19:30 Ur Leukocyte Esterase Negative (Negative) 10/31/22 19:30 Nasal Screen MRSA (PCR) Negative (Negative) 10/31/22 21:11 Stl C. diff Tox B Gene Negative Cdiff Gene (Neg) 11/01/22 Unknown SARS-CoV-2 (PCR) NEGATIVE (Negative) 10/31/22 14:52 Influenza Type A (PCR) Negative (Neg) 10/31/22 14:52 Influenza Type B (PCR) Negative (Neg) 10/31/22 14:52 RSV (RT-PCR) Negative (Neg) 10/31/22 14:52 SARS-CoV-2 IgG Ab Index 1.21 index (<1.00) H 10/31/22 14:20 Staphylococcus sp PCR DETECTED (NotDetected) A 10/31/22 15:29 mecA/C-Methicil Resis Gene DETECTED (NotDetected) A 10/31/22 15:29 Staph epidermidis (PCR) DETECTED (NotDetected) A 10/31/22 15:29 Bld Cult ID Panel PCR See PCR Comment (NotDetected) 10/31/22 15:29 Blood Type O Positive 11/01/22 21:28 Antibody Screen NEGATIVE 11/01/22 21:28 Impressions Abdomen/Pelvis CT 10/31/22 14:38 CT SCAN OF THE ABDOMEN AND PELVIS WITH IV CONTRAST CLINICAL HISTORY: Vomiting. COMPARISON STUDY: Abdominal CT dated scans dated 09/17/2022 and 12/23/2015. TECHNIQUE: Following the IV administration of 118 cc of Optiray 320, CT scan of the abdomen and pelvis is performed from the lung bases to the proximal femora. Images are reviewed in the axial, sagittal, and coronal planes. IV contrast was administered without complication. A dose lowering technique was utilized adhering to the principles of ALARA. CT DOSE: 629.99 mGy.cm FINDINGS: Lung bases: The patient is status post midline sternotomy. The heart is normal in size and without pericardial effusion. There is trace right pleural effusion with bibasilar scarring/atelectasis. Pleural thickening is seen at the right lung base. Postsurgical change is noted at the gastroesophageal junction with evidence of at least partial gastric pull-through. The distal esophagus/gastric pull-through is markedly thick walled and edematous. There is a 1.8 cm outpouching from the distal aspect of the distal esophagus/stomach at this level versus a necrotic paraesophageal lymph node seen on image #12. Liver: The contrast-enhanced liver is normal in size, contour, and attenuation. There is no intrahepatic biliary ductal dilatation. The hepatic veins and portal veins are patent. Gallbladder: Surgically absent and clips in the gallbladder fossa. Spleen: Normal in size and attenuation. Pancreas: Moderately atrophic and grossly unremarkable. Adrenal glands: Unremarkable. Kidneys: The contrast enhanced kidneys demonstrate mild cortical atrophy and are without hydronephrosis. There are bilateral renovascular calcifications. The kidneys enhance symmetrically. Abdominal vasculature: The abdominal aorta is normal in course and caliber noting moderate to advanced atherosclerotic calcification. Bowel: There is no bowel obstruction. Residual enteric contrast is seen throughout the colon. There is mild colonic diverticulosis without CT evidence of acute diverticulitis. The appendix is well-visualized and normal. Peritoneum: There is no intraperitoneal free air or abdominal ascites. Lymphadenopathy: None. Pelvic viscera: Evaluation of the pelvis is degraded by streak artifact from a left hip arthroplasty. The bladder is distended but otherwise normal as imaged. The uterus is surgically absent. No adnexal lesion is seen. Skeletal structures: The skeletal structures are osteopenic. The skeletal structures are osteopenic. There is an severe spondylosis with postsurgical change from L4-S1 spinal fusion. No lytic or blastic lesions are seen. A left hip arthroplasty is in place. IMPRESSION: 1. The partially visualized distal esophagus/gastric pull-through is markedly thick walled and edematous. This could represent a severe gastritis/esophagitis or possibly a mass lesion. Clinical correlation will be required and endoscopy could be considered for further assessment. 2. There is a 12 mm focal outpouching of the distal esophagus/gastric pull-throu gh versus necrotic paraesophageal lymph node. 3. Trace right pleural effusion with associated pleural thickening. This was also seen in 2016. 4. No acute infectious or inflammatory findings are identified in the abdomen or pelvis. 5. Additional findings as above. ACT 112: Negative or not required by law. Electronically signed by: Doug Figueredo M.D. 10/31/2022 4:40 PM Chest CTA 10/31/22 15:58 CT angio chest PE protocol CLINICAL HISTORY: PE TECHNIQUE: Multidetector row helical CT of the chest was performed with angiographic protocol. Coronal and sagittal reformations were obtained. Coronal and sagittal MIPS were obtained from the axial data set and were submitted for review. Automated dose lowering techniques and/or adjustment according to patient size were utilized for this exam. Comparison: Comparison is made to chest radiograph 10/31/2022 FINDINGS: Lungs and pleura: Diffuse centrilobular emphysema is seen most prominent in the upper lobes. Atelectasis versus scarring is seen in the lungs. There is a small right pleural effusion. There is a 5 mm pulmonary nodule in the right upper lobe (series 4 image 180). Heart and pericardium: Heart size is normal. No pericardial effusion. Vessels: No evidence of pulmonary embolism. Bovine arch is noted. Mediastinum and patricia: The esophagus is markedly patulous. There is postsurgical change from esophageal resection with gastric pull-through. Chest wall and lower neck: Right port catheter is unchanged. Abdomen: For findings below the diaphragm, please refer to CT of the abdomen dated the same. Bones: Degenerative changes in the thoracic spine. IMPRESSION: 1. No evidence of pulmonary embolism. 2. Postsurgical changes of esophageal resection and gastric pull-through. 3. Additional findings as above. ACT 112: Negative or not required by law. Electronically signed by: Louie Hardy M.D. 10/31/2022 4:29 PM Chest X-Ray 11/07/22 08:46 XR chest 1V portable HISTORY: 72 years-old Female epigastric discomfort, s/p esophgeal stent 11/06 acute epigastric abdominal pain COMPARISON: Chest radiograph and CTA chest 10/31/2022 TECHNIQUE: AP view of the chest FINDINGS: Cardiac silhouette is enlarged. Prior median sternotomy. Right IJ Drrmeb-v-Ihmh catheter is again noted with distal tip in the expected location of the mid SVC. Pulmonary emphysema with chronic interstitial coarsening. Chronic blunting of the costophrenic angles is noted along with linear scarring of the right midlung and right lung base. Trace right pleural effusion. Prior gastric pull-through with stent. Degenerative changes of the shoulders and spine. Cervical spinal fusion hardware. Postoperative changes of the left lung apex. Atherosclerosis of the aorta. IMPRESSION: 1. Emphysema with chronic interstitial coarsening. 2. Trace right pleural effusion again noted. 3. Gastric pull-through with stent. 4. No pneumothorax. ACT 112: Negative or not required by law. The above report was generated using voice recognition software. It may contain grammatical, syntax or spelling errors. Electronically signed by: Kevin Isbell M.D. 11/07/2022 9:32 AM Hospital Course (1) Atrial fibrillation with RVR: Patient is a 72 yr female with H/O CAD S/P CABG, stent, PAF on Eliquis, CM [EF 55 to 60% on TTE 2017], PVD, TIA, HTN, HLD, Williamson's esophagus, recent diagnosis of esophageal adenocarcinoma 09/03/22, prediabetes, chronic anemia [baseline hemoglobin 9-10], ongoing tobacco abuse presented to our ED 09/17 with complaint of SVT, Nausea and vomiting. Of note, during recent EGD/EUS attempt on Oct 17, she had SVT and procedure aborted. She was off of metoprolol for 2 d ays. She was in oncology office on the day of arrival where she vomited/nauseous and went in SVT; hence presented to ED. She is being managed for the following: Esophageal adenocarcinoma Gastritis, esophagitis Nausea/vomiting due to above Follows with Dr De Leon and Dr Ni Lower GI bleed: BRBPR w/ stool 11/01 Ongoing tobacco use disorder --Diagnosed with esophageal adenocarcinoma 09/03/2022, was undergoing EGD/EUS on October 17 as part of onco w/u which was aborted due to SVT. --CT ABD:The partially visualized distal esophagus/gastric pull-through is markedly thick walled and edematous. This could represent a severe gastritis/esophagitis or possibly a mass lesion. Clinical correlation will be required and endoscopy could be considered for further assessment. There is a 12 mm focal outpouching of the distal esophagus/gastric pull-through versus necrotic paraesophageal lymph node. Trace right pleural effusion with associated pleural thickening. This was also seen in 2016. No acute infectious or inflammatory findings are identified in the abdomen or pelvis. --CTA:No evidence of pulmonary embolism. Postsurgical changes of esophageal resection and gastric pull-through. --11/04 EUS: Distal esophageal circumferential malignancy staged T3 N0 Mx by endosonographic criteria. Patient is very high risk for massive upper GI bleeding if she is using anticoagulation due to ongoing blood oozing of the large esophageal cancer. --11/06 EGD scope:Obstructing/malignant esophageal tumor in the lower third of the esophagus. Esophageal stent placed. --Continue Protonix, Pepcid -- Aspirin restarted on 11/09/22 -- Eliquis on hold indefinitely due to high risk for upper GI bleed --Appreciate GI, oncology input --Monitor H&H and transfuse PRBCs as needed --Needs follow-up with GI, oncology upon discharge --Encourage to increase oral intake --Appreciate Palliative care Input --Appreciate Speech therapy recommendations --Patient not interested in Rehab --Tolerating Minced and Moist diet --Plan to discharge home today Dehydration Suspected sepsis Leukocytosis likely secondary to malignancy No obvious source of infection Blood cultures negative IV antibiotics discontinued Mild Troponin elevation Likely demand ischemia secondary to tachycardia SVT Afib RVR H/O Orthostatic hypotension 09/18/2022 ECHO: EF 60 to 65%, grade 2 diastolic dysfunction. Moderate concentric LVH. 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 CAD S/P CABG/stent PVD TIA Continue aspirin, statin, beta-yair HLD on statin H/O Williamson's esophagus Chronic anemia Prediabetes Continue home meds DVT Px: SCDs Code Status Full code Disposition Home with Home Health Total Time Total Time Spent Total Time Spent (In Minutes): 51 minutes Discharge Plan Discharge Items Patient Disposition: Home - Home Health Services Reason For Visit: WEAKNESS, SVT Discharge Diagnosis: Atrial fibrillation with rapid ventricular response Esophageal adenocarcinoma Gastritis Esophagitis Activity: Per Instructions section Exercise/Sports: Wait until after follow-up appointment Non-emergency contact: Primary Care Provider, Pad Extraction Tender, Blue Line Trimmer and Oncologist Call non-emergency contact if: you have any medication questions, your symptoms worsen, your pain is concerning for you and you have a fever Follow-up/Referrals: Toi Sexton MD [Physician] - 11/18/22 3:30 pm Juliane Oconnor DO [Primary Care Provider] - (Date & Time 11/19/2022 1:40 PM Provider Juliane Oconnor DO Department Family Practice [facility] ) Alexi De Leon MD [Surgeon] - (Date & Time 11/14/2022 10:15 AM Provider Alexi De Leon MD Department Hematology/Oncology [facility] ) Rosangela Colbert MD [Physician] - (Please call the Gastroenterology office if having any problems related to the esophageal stent that was placed on 11/06/2022. ) Dietitian Info: Minced and moist diet Diet: Regular Addtl Attending Provider Instructions: Follow-up with your primary care physician on 11/19/2022 1:40 PM Follow-up in with your oncologist Dr. Alexi De Leon in 1 to 2 weeks Follow-up with your radiation oncologist Dr.Jerome Ni for radiation therapy as advised. Follow-up with your nursing scheduler Dr. Sexton on 11/18/22 at 3:30pm as scheduled Follow-up with your locator specialist as needed Medication Changes 1) Start taking amiodarone 400 mg twice a day for 3 more days and then start taking 200 mg twice a day. Further instructions as per your nursing scheduler 2) your Eliquis (apixaban) is discontinued as recommended by your locator specialist 3) start taking Protonix 40 mg daily 4) can use Pepcid 20 mg at bedtime as needed for heartburn ----Quit smoking tobacco as advised. Seek immediate medical attention if your symptoms reoccur or worsen Please take all medications as instructed on discharge list below. Please call if you have any questions or problems. You can reach a [facility] hospitalist on duty at [facility] 24 hours a day by calling [phone] Pending Studies at Discharge: No Stand-Alone Forms: My [facility], Smoking Cessation Medications and DC Order Prescriptions: New amiodarone 200 mg Tablet 400 mg PO UD Qty: 60 1RF Rx Instructions: Take amiodarone 400 mg twice a day for 3 more days and then start taking 200 mg twice a day. pantoprazole 40 mg Tablet,Delayed Release (Dr/Ec) 40 mg PO QAM 30 Days Qty: 30 2RF famotidine [Pepcid] 20 mg tablet 20 mg PO HS PRN (Reason: heartburn) Qty: 30 0RF Continued acetaminophen [Tylenol Extra Strength] 500 mg tablet 500 mg PO Q4 PRN (Reason: Pain) albuterol sulfate 2.5 mg /3 mL (0.083 %) solution for nebulization 2.5 mg inhalation Q4H PRN (Reason: Abdominal Discomfort) mecobalamin (vitamin B12) 1,000 mcg lozenge 1,000 mcg PO DAILY Rx Instructions: allow to dissolve in mouth OR may chew lightly before swallowing ferrous sulfate [FeroSul] 325 mg (65 mg iron) tablet 325 mg PO DAILY ropinirole 0.25 mg tablet 0.5 mg PO HS Rx Instructions: take 2 tablets with food fluticasone propionate [Flovent HFA] 220 mcg/actuation HFA aerosol inhaler 2 puff inhalation BID PRN (Reason: as directed) Spiriva with HandiHaler 18 mcg capsule, w/inhalation device 1 cap inhalation DAILY PRN (Reason: as directed) Rx Instructions: puncture 1 cap using device; one dose = 2 inhalations cholecalciferol (vitamin D3) 25 mcg (1,000 unit) capsule 25 mcg PO DAILY aspirin 81 mg tablet,chewable 81 mg PO DAILY prochlorperazine maleate [Compazine] 5 mg tablet 5 mg PO TID PRN (Reason: nausea and vomiting) Qty: 30 1RF Rx Instructions: Metoclopramide has been stopped. nitroglycerin 0.4 mg tablet, sublingual 0.4 mg SL UD PRN (Reason: chest pain) Qty: 1 Rx Instructions: may repeat 3 times if chest pain continues call 911 atorvastatin 80 mg Tablet 80 mg PO HS trazodone 150 mg Tablet 150 mg PO HS duloxetine [Cymbalta] 30 mg Capsule,Delayed Release(Dr/Ec) 30 mg PO QAM ondansetron 4 mg tablet,disintegrating 4 mg PO Q8H PRN (Reason: nausea and vomiting) Qty: 60 0RF mirtazapine 15 mg tablet 15 mg PO HS magnesium oxide 400 mg magnesium Tablet 400 mg PO DAILY albuterol sulfate 90 mcg/actuation Hfa Aerosol Inhaler 2 puff INHALATION Q4 PRN (Reason: Wheezing) metoprolol succinate 50 mg tablet extended release 24 hr 50 mg PO DAILY Discontinued Eliquis 5 mg tablet 5 mg PO AMHS omeprazole 40 mg capsule,delayed release(DR/EC) 40 mg PO DAILYBB Discharge Orders: Discharge Order (Routine); Ordered 11/12/22 Ordered By: Gigi Willard Admission Data Admit Date/Time: 10/31/22 18:35 Attending Provider: Gigi Willard Admit Provider: Valentin Mercado Primary Care Provider: Juliane Oconnor Other Providers: Valentin Mercado ; Braden Thakur Jr ; Enmanuel Hickman ; Evert Gaytan ; Diana Marinelli ; Samantha Vogel ; Karie Williamson ; Kirsten Celeste ; Reji Torres ; Shannen Moreland ; Mino Lea ; Diandra Mendieta ; Lucille Carrion ; Vincent Mcdaniels ; Tatum Chamberlain ; Margie Kaur ; Kylah Garvey ; Chika Ortega ; Rosangela Colbert ; Ranjan Jaeger ; Tank Espinoza ; Donna Aguilar ; Sima Voss Jr ; Hang De Leon ; Jesusita Horton
[2022-11-12] MEDS: HEPARIN 100 UNIT/ML 5ML FLUSH FLUSH PRN (14:50)
[2022-11-13] MEDS ORDERED: PANTOprazole 40 MG TAB PO SCH (09:00)
--- NOTE | 2022-11-21 08:13 | Coding Query ---
CODING QUERY To promote full compliance with coding requirements relating to patient care, provider participation is requested in all cases of hydraulic punch press operator uncertainty. Please assist us with the question(s) below: Coding Question(s): The Progress Notes starting 11/09 through the Discharge Summary document, " Dehydration Suspected sepsis Leukocytosis likely secondary to malignancy No obvious source of infection Blood cultures negative IV antibiotics discontinued". Please specify below, in your clinical opinion, regarding suspected Sepsis: ( ) Suspected Sepsis was treated initially during this admission ( x ) Sepsis was Ruled-Out ( ) Other: Please Specify Physician's Response(s): Thank you Litzy Pack Principal Diagnosis: "that condition established after study, to be chiefly responsible for occasioning the admission of the patient to the hospital for care." Co-Existing Principal Diagnosis: "when two or more diagnoses equally meet the criteria for principal diagnosis as determined by the circumstances of admission, diagnostic work up, and/or therapy provided, and the Alphabetic Index, Tabular List, or another coding guideline does not provide sequencing direction, any one of the diagnoses may be sequenced first." "When the physician has documented what appears to be a current diagnosis in the body of the record, but has not included the diagnosis in the final diagnostic statement, the physician should be asked whether the diagnosis should be added." ([facility] 2 QTR90. p3-4) ARLETTE
--- NOTE | 2022-11-21 15:24 | Coding Query ---
CODING QUERY To promote full compliance with coding requirements relating to patient care, provider participation is requested in all cases of chairman & co founder uncertainty. Please assist us with the question(s) below: Coding Question(s): There is documentation in the record and on Discharge Summary of, " Esophageal adenocarcinoma Gastritis, esophagitis Nausea/vomiting due to above Follows with Dr De Leon and Dr Ni Lower GI bleed: BRBPR w/ stool 11/01 Ongoing tobacco use disorder --Diagnosed with esophageal adenocarcinoma 09/03/2022, was undergoing EGD/EUS on October 17 as part of onco w/u which was aborted due to SVT. --CT ABD:The partially visualized distal esophagus/gastric pull-through is markedly thick walled and edematous. This could represent a severe gastritis/esophagitis or possibly a mass lesion. Clinical correlation will be required and endoscopy could be considered for further assessment. There is a 12 mm focal outpouching of the distal esophagus/gastric pull-through versus necrotic paraesophageal lymph node. Trace right pleural effusion with associated pleural thickening. This was also seen in 2016. No acute infectious or inflammatory findings are identified in the abdomen or pelvis. --CTA:No evidence of pulmonary embolism. Postsurgical changes of esophageal resection and gastric pull-through. --11/04 EUS: Distal esophageal circumferential malignancy staged T3 N0 Mx by endosonographic criteria. Patient is very high risk for massive upper GI bleeding if she is using anticoagulation due to ongoing blood oozing of the large esophageal cancer.", and the 11/03 Gastroenterology Progress Note documents, "Had reported diarrhea and hematochezia over the weekend, that has not recurred over the last 2 days; HGB remains at baseline and pt HD stable. Unclear exact etiology for the hematochezia but suspect likely from esophageal cancer. C diff testing was neg.". Please specify below, in your clinical opinion, the source(s) of hematochezia/lower GI bleed: ( ) Esophageal Cancer ( x ) Esophageal Cancer and Esophagitis and Gastritis ( ) Other: Please Specify Physician's Response(s): Thank you Litzy Pack Principal Diagnosis: "that condition established after study, to be chiefly responsible for occasioning the admission of the patient to the hospital for care." Co-Existing Principal Diagnosis: "when two or more diagnoses equally meet the criteria for principal diagnosis as determined by the circumstances of admission, diagnostic work up, and/or therapy provided, and the Alphabetic Index, Tabular List, or another coding guideline does not provide sequencing direction, any one of the diagnoses may be sequenced first." "When the physician has documented what appears to be a current diagnosis in the body of the record, but has not included the diagnosis in the final diagnostic statement, the physician should be asked whether the diagnosis should be added." ([facility] 2 QTR90. p3-4) ARLETTE
== END 2022-11-12 15:51 | disposition home health service (06) | DRG 374 ==
LOC: ED 13:58 → 2S 18:35 → SUATTDRO 18:35 → 2S 19:48
DX: F17.210 Nicotine dependence, cigarettes, uncomplicated; Z80.3 Family history of malignant neoplasm of breast; K29.71 Gastritis, unspecified, with bleeding; I25.2 Old myocardial infarction; I48.0 Paroxysmal atrial fibrillation; Z95.1 Presence of aortocoronary bypass graft; Z95.5 Presence of coronary angioplasty implant and graft; K20.91 Esophagitis, unspecified with bleeding; D72.828 Other elevated white blood cell count; Z88.8 Allergy status to other drugs, medicaments and biological substances; Z82.49 Family history of ischemic heart disease and other diseases of the circulatory system; E87.6 Hypokalemia; I47.1 Supraventricular tachycardia; F32.A Depression, unspecified; N18.30 Chronic kidney disease, stage 3 unspecified; Z79.82 Long term (current) use of aspirin; K92.1 Melena; I24.8 Other forms of acute ischemic heart disease; K21.9 Gastro-esophageal reflux disease without esophagitis; Z86.73 Personal history of transient ischemic attack (TIA), and cerebral infarction without residual deficits; R19.7 Diarrhea, unspecified; I73.9 Peripheral vascular disease, unspecified; Z79.899 Other long term (current) drug therapy; I25.10 Atherosclerotic heart disease of native coronary artery without angina pectoris; I12.9 Hypertensive chronic kidney disease with stage 1 through stage 4 chronic kidney disease, or unspecified chronic kidney disease; E78.5 Hyperlipidemia, unspecified; R73.03 Prediabetes; D64.9 Anemia, unspecified; J44.9 Chronic obstructive pulmonary disease, unspecified; R11.2 Nausea with vomiting, unspecified; F41.9 Anxiety disorder, unspecified; E86.0 Dehydration; Z79.01 Long term (current) use of anticoagulants; C15.5 Malignant neoplasm of lower third of esophagus

== ENCOUNTER 2022-12-08 14:45 | Inpatient (IN) ==
--- NOTE | 2022-12-08 15:50 | XRay Report ---
XR chest 1V portable HISTORY: Chest pain, nonspecific COMPARISON: Chest 11/07/2019. FINDINGS: No pneumothorax. Trace bilateral pleural effusions remain unchanged. Interstitial thickenin g within the lung bases and a linear scarlike density within the right lower lobe persist. There are post sternotomy changes. Right Port-A-Cath terminates in the distal SVC. Cervical spinal fusion hardw are. Gastric pull-through with an associated stent again noted. IMPRESSION: 1. No significant change compared to the prior study. 2. Emphysema with chronic interstitial thickening again noted at the lung bases. 3. Trace bilateral pleural effusions persist. 4. Gastric pull-through with stent, unchanged. ACT 112: Negative or not required by law. Electronically signed by: John Jones M.D. 12/08/2022 3:49 PM
[2022-12-08 16:15] LABS: INR 1.2 (0.9-1.1); Partial Thromboplastin Ratio 1.3; Partial Thromboplastin Time 36.2 Seconds (21.0-31.0); Prothrombin Time 12.9 Seconds (9.0-12.0)
[2022-12-08 16:25] LABS: Acanthocytes 1+; Basophils # (auto) 0.03 K/uL (0-0.2); Basophils % (auto) 1.3 %; Echinocytes 1+; Hematocrit (blood only) 22.8 % (34.1-44.9); Hemoglobin 7.6 g/dl (12.0-16.0); Immature Granulocytes # (auto) 0.02 K/uL (0.00-0.02); Immature Granulocytes % (auto) 0.8 %; Lymphocytes # (auto) 0.18 K/uL (1.2-3.4); Lymphocytes % (auto) 7.6 %; Mean Corpuscular Hemoglobin 27.7 pg (25.0-34.0); Mean Corpuscular Hgb Conc 33.3 g/dL (32.0-36.0); Mean Corpuscular Volume 83.2 fL (80.0-100.0); Mean Platelet Volume 12.4 fL (9.4-12.3); Monocytes # (auto) 0.18 K/uL (0.24-0.82); Monocytes % (auto) 7.6 %; Neutrophils # (auto) 1.97 K/uL (1.4-6.5); Neutrophils % (auto) 82.7 %; Platelet Count 140 K/uL (130-400); RDW Coefficient of Variation 14.9 % (11.5-14.5); RDW Standard Deviation 45.1 fL (36.4-46.3); Red Blood Count 2.74 M/uL (3.93-5.22); Toxic Granulation 1+; White Blood Count 2.38 K/ul (4.8-10.8)
[2022-12-08 16:32] LABS: Albumin Globulin Ratio 0.8 (0.9-2); Albumin Level 2.1 gm/dl (3.4-5.0); BUN Creatinine Ratio 34.5 (10-20); Bilirubin,Total 1.1 mg/dl (0.2-1.0); Calcium 7.3 mg/dl (8.5-10.1); Creatinine Clr Calc Pharmacy 75.7 ml/min; Est GFR (African American) 106.7 ml/min; Est GFR (Non-African American) 92.1 ml/min; Globulin 2.5 gm/dl (2.5-4.0); Potassium 3.6 mmol/L (3.5-5.1); Total Protein 4.6 gm/dl (6.0-8.3); Troponin I High Sensitivity 23.9 pg/ml (0-14)
[2022-12-08 16:35] LABS: Influenza B virus by PCR Negative (Neg); RSV by PCR Negative (Neg)
--- NOTE | 2022-12-08 16:36 | Electrocardiogram Report ---
Test Reason : Blood Pressure : / mmHG Vent. Rate : 097 BPM Atrial Rate : 097 BPM P-R Int : 142 ms QRS Dur : 086 ms QT Int : 358 ms P-R-T Axes : 068 052 122 degrees QTc Int : 454 ms Normal sinus rhythm Diffuse Nonspecific ST and T wave abnormality Abnormal ECG When compared with ECG of 09-NOV-2022 08:34, No significant change Confirmed by Fernando Avelar ([id number]) on 12/08/2022 4:36:24 PM Referred By: ED Confirmed By:Fernando Avelar
[2022-12-08] MEDS ORDERED: METOPROLOL TARTRATE 1 MG/ML VIAL IV STA (16:41)
[2022-12-08] MEDS ORDERED: PANTOPRAZOLE BOLUS/DRIP 1 EACH IV STA (16:41)
[2022-12-08] MEDS ORDERED: PANTOprazole 80 MG in DEXTROSE 5% 100 ML IV ONE (16:41)
[2022-12-08] MEDS ORDERED: SODIUM CHLORIDE 0.9% 250 ML IV PRN ×2 (16:42→23:29)
[2022-12-08 17:09] LABS: Influenza A virus by PCR Positive (Neg); SARS CoV2 RNA(COVID-19) Ceph POSITIVE (Negative)
[2022-12-08] MEDS: PANTOprazole 40 MG in DEXTROSE 5% 100 ML IV SCH (17:25)
[2022-12-08] MEDS ORDERED: LORazepam 0.5 MG TAB PO PRN (23:29)
[2022-12-08] MEDS ORDERED: ONDANSETRON INJ 2 MG/ML 2 ML VIAL IV PRN (23:29)
[2022-12-08] MEDS ORDERED: METOPROLOL TARTRATE 1 MG/ML VIAL IV PRN (23:29)
[2022-12-08] MEDS ORDERED: ALBUTEROL 0.083% NEBU SOLN 3 ML VIAL INH PRN (23:29)
[2022-12-08] MEDS ORDERED: ACETAMINOPHEN 325 MG TAB PO PRN (23:29)
[2022-12-08] MEDS ORDERED: NITROGLYCERIN SL 0.4 MG/TAB TAB SL PRN (23:29)
[2022-12-08] MEDS ORDERED: ALBUTEROL HFA 8 GM INHALER INH PRN (23:29)
[2022-12-08] MEDS ORDERED: OSELTAMIVIR PHOSPHATE 75 MG CAP PO STA (23:48)
[2022-12-09] MEDS: SODIUM CHLORIDE 0.9% 1000ML 1,000 ML IV SCH ×3 (00:05→17:07)
[2022-12-09] MEDS ORDERED: REMDESIVIR 200 MG in SODIUM CHLORIDE 0.9% 210 ML IV ONE (00:15)
[2022-12-09] MEDS ORDERED: FLUTICASONE FUROATE 200MCG 14 PUFFS/INHALER INH PRN (00:40)
[2022-12-09] MEDS ORDERED: UMECLIDINIUM BROMIDE 62.5MCG/BLISTER 7 PUFFS/INHALER INH PRN (00:41)
[2022-12-09] MEDS: PANTOprazole 40 MG in DEXTROSE 5% 100 ML IV SCH ×4 (00:44→15:34)
--- NOTE | 2022-12-09 00:58 | History and Physical Report ---
DATE OF ADMISSION: 12/08/2022. CHIEF COMPLAINT: Weakness, anemia. HISTORY OF PRESENT ILLNESS: This is a 72-year-old female with past medical history significant for CAD, status post CABG, status post stent, paroxysmal atrial fibrillation. Eliquis was stopped last admission because of esophageal cancer and high risk of bleeding and only on aspirin, history of resolved cardiomyopathy, history of peripheral vascular disease, history of TIA, hypertension, hyperlipidemia, history of Williamson's esophagus, recent diagnosis of esophageal adenocarcinoma, history of prediabetes, chronic anemia, baseline hemoglobin around 9-10, history of tobacco abuse, used to smoke 1-2 packs of cigarettes daily, currently seems to be smoking 1-2 cigarettes daily. The patient was diagnosed with esophageal adenocarcinoma on 09/03/2022 and when she was getting EGD done on 10/17/2022, she was in SVT and also she was admitted on 10/31/2022 with nausea, SVT, and rapid AFib, and she had prolonged hospital stay and she was discharged on 11/12/2022. During the hospital stay, she was seen by cardiology and GI. Found to have gastritis, esophagitis, and also endoscopic ultrasound on 11/04/2022 showed distal esophageal circumferential malignancy stage III, N0 MX by sonographic criteria and a very high risk of massive upper GI bleeding if she is on anticoagulation due to ongoing blood oozing over the large esophageal cancer.And she had EGD on 11/06/2022 showing obstructing malignant esophageal tumor in the lower third of the esophagus, esophageal stent placed. She was placed on Protonix and Pepcid. Aspirin was restarted on 11/09/2022. Eliquis was held indefinitely due to high risk of upper GI bleed. The patient is supposed to be on amiodarone. At the time of discharge, she was prescribed amiodarone, but seems not on medrec done today The patient is a poor historian. Tried to call the and he said the patient was sent here because of sickness, but when asked further questions, he got somewhat irritated and said he is not a doctor. There is a question of some vomiting of blood, but I could not get any history from the patient and the . The patient says she is not ambulating since her discharge. She is having some chest pain, feeling of heart racing, some abdominal discomfort. Appetite is poor. Denies any headache. No blurred visions, no cough, no fevers, no runny nose, has some sore throat. She says she did not notice any blood in the stool, but she says they found it out here. She says she is micturating okay. Alert and oriented, but somewhat weak.dEdie was covid and flu positive in ER. Denies fevers or sob.But she was satting 85% on room air. ALLERGIES: SUMATRIPTAN, VARENICLINE. PAST MEDICAL HISTORY: As mentioned above. PAST SURGICAL HISTORY: CABG, carpal tunnel surgery, colonoscopy, cystoscopy, EGD, endoscopic ultrasound, knee arthroscopy, maxillary sinus endoscopy, left knee surgery, left shoulder surgery, laparoscopic Lauren procedure, laparoscopic paraesophageal hernia repair, bilateral total knee arthroplasty, tonsillectomy, cholecystectomy, right wrist ganglion removal, total abdominal hysterectomy with removal of tubes, left total hip replacement. MEDICATIONS: The patient is on Tylenol 500 mg p.o. q. 4 hours p.r.n., albuterol 2 puffs inhalation q. 4 hours p.r.n., albuterol nebs q. 4 hours p.r.n., aspirin 81 mg p.o. daily, atorvastatin 80 mg p.o. at bedtime, vitamin D 25 mcg p.o. daily, dexamethasone as directed, Flovent 220 mcg inhalation b.i.d., lorazepam 0.5 mg p.o. q. 6 hours p.r.n., magnesium oxide 400 mg p.o. daily, vitamin B12 1000 mcg p.o. daily, metoprolol succinate 50 mg p.o. daily, omeprazole 40 mg p.o. daily, Zofran 8 mg p.o. p.r.n., Protonix 40 mg p.o. daily, prochlorperazine 10 mg p.o. q. 6 hours p.r.n., ropinirole 0.5 mg p.o. at bedtime, Spiriva 1 capsule inhalation daily, trazodone 150 mg p.o. at bedtime. FAMILY HISTORY: Significant for mother has breast cancer; sister has breast cancer; daughter has fibromyalgia; son has gastrointestinal disorders. SOCIAL HISTORY: . Smoker, 1 pack a day for 46 years. No alcohol, no drug use. REVIEW OF SYSTEMS: As per HPI. The patient is a poor historian. PHYSICAL EXAMINATION: VITAL SIGNS: Temperature 36.9, pulse 120s, respiratory rate 20s, blood pressure 90/51, oxygen 100% on nasal cannula, 85% when she came in. HEENT: Pupils equal, round, and reactive to light. Oral mucosa moist. NECK: No JVD. No neck masses. CARDIOVASCULAR: S1 and S2 heard. Somewhat tachycardia. No murmurs. RESPIRATORY SYSTEM: Normal AP diameter. No accessory muscle use. No wheezing or crackles. ABDOMEN: Soft, bowel sounds present, nontender, no distention. CENTRAL NERVOUS SYSTEM: Alert and oriented. Speech is clear. No facial droop. Insight seems okay. Obeys simple commands. Moves extremities. EXTREMITIES: No edema, no erythema. LABORATORY DATA: WBC 2.3, hemoglobin 7.6, hematocrit 22.8, platelets 140. PT 12.9, INR 1.2, APTT 36.2. Sodium 130, potassium 3.6, chloride 91, bicarb 31, BUN 20, creatinine 0.5, serum glucose 161, calcium 7.3, total bilirubin 1.1, AST 15, ALT 12, alkaline phosphatase 64. Troponin I high sensitivity 23.9. SARS-CoV-2 PCR positive. Influenza A positive. Influenza B negative. RSV PCR negative. IMAGING DATA: Chest x-ray, no significant change compared to prior study, emphysema, with chronic interstitial thickening. Trace bilateral pleural effusion noted. Gastric pull-through with stent unchanged. EKG: Normal sinus rhythm at a rate of [address] abnormalities. No significant change was found. ASSESSMENT AND PLAN: This is a 72-year-old female who was recent diagnosed with esophageal adenocarcinoma, who presents with weakness and anemia. 1. Anemia of gastrointestinal bleed, question of vomiting blood, patient denies any bleeding and also could not get additional history from the . The patient has a recent diagnosis of esophageal adenocarcinoma and gastritis and esophagitis. She had endoscopic ultrasound on 11/04/2022 showing distal esophageal circumferential malignancy, stage III, N0 MX by endosonographic criteria. High risk for massive upper GI bleeding if she is on anticoagulation due to ongoing blood oozing over the large esophageal cancer. She also had EGD done on 11/06/2022 showing obstructing malignant esophageal tumor in the lower third of the esophagus. Esophageal stent placed. Today, on imaging studies shows stent in place. She is on aspirin, which will be held.. ER ordered 1 unit of PRBCs. We will give one more unit of PRBCs, IV fluids, Protonix drip. Will closely monitor in tele. GI consult. N.p.o. 2. Dehydration: The patient says she is not eating much at home. The patient is somewhat tachycardic, hypotensive. Getting blood. Will also give fluids and monitor. 3. Mild elevation in troponin, mostly demand ischemia: Follow serial enzymes. 4. History of SVT, AFib, history of orthostatic hypotension: Echo on 11/18/2022, EF of 60% to 65%, grade 2 diastolic dysfunction. She was on metoprolol 50 mg daily and amiodarone at the time of discharge. Seems to be not on amiodarone on med rec. . Will order amiodarone. Metoprolol withholding parameters. If any concern, will consult cardiology. 5. Tobacco abuse: Needs counseling. 6. CAD status post CABG: The patient is status post stent. History of peripheral vascular disease and history of transient ischemic attack: Continue statin. Continue beta yair withholding parameters. Holding aspirin. 7. History of hyperlipidemia: On statin. 8.. History of Williamson's esophagus. 9. History of chronic anemia: Baseline hemoglobin of 9-10. 10. Prediabetes: Follow HbA1c. 11. Covid and flu positive. Requiring oxygen. CXR ok. Covid precaution, Started on Tamiflu and remdesvir. Not giving steroid because of GI bleed. 12. Deep venous thrombosis prophylaxis: Sequential compression devices for now. DISPOSITION: Closely monitor in the tele floor. Level 1 FULL CODE, Eddie says she will think about Code Status.. Disposition to be determined. Job ID: [id number]
[2022-12-09] MEDS ORDERED: SODIUM CHLORIDE 0.9% 250 ML IV SCH (06:30)
[2022-12-09] MEDS: AMIODARONE 200 MG TAB PO SCH ×2 (06:32→17:08)
[2022-12-09 06:39] LABS: BUN Creatinine Ratio 35.9 (10-20); Calcium 6.6 mg/dl (8.5-10.1); Creatinine Clr Calc Pharmacy 121.7 ml/min; Est GFR (African American) 121.6 ml/min; Est GFR (Non-African American) 104.9 ml/min; Magnesium 1.6 mg/dl (1.7-2.4)
[2022-12-09 06:41] LABS: Acanthocytes 1+; Basophils # (auto) 0.02 K/uL (0-0.2); Basophils % (auto) 1.4 %; Echinocytes 1+; Hematocrit (blood only) 29.5 % (34.1-44.9); Hemoglobin 10.2 g/dl (12.0-16.0); Immature Granulocytes # (auto) 0.02 K/uL (0.00-0.02); Immature Granulocytes % (auto) 1.4 %; Lymphocytes # (auto) 0.19 K/uL (1.2-3.4); Lymphocytes % (auto) 13.7 %; Mean Corpuscular Hemoglobin 28.1 pg (25.0-34.0); Mean Corpuscular Hgb Conc 34.6 g/dL (32.0-36.0); Mean Corpuscular Volume 81.3 fL (80.0-100.0); Mean Platelet Volume 12.7 fL (9.4-12.3); Monocytes # (auto) 0.14 K/uL (0.24-0.82); Monocytes % (auto) 10.1 %; Neutrophils # (auto) 1.02 K/uL (1.4-6.5); Neutrophils % (auto) 73.4 %; Platelet Count 112 K/uL (130-400); RDW Coefficient of Variation 14.8 % (11.5-14.5); RDW Standard Deviation 43.5 fL (36.4-46.3); Red Blood Count 3.63 M/uL (3.93-5.22); White Blood Count 1.39 K/ul (4.8-10.8)
[2022-12-09 07:29] LABS: Estimated Average Glucose 137 mg/dl; Hemoglobin A1C 6.4 % (4.5-5.6)
[2022-12-09] MEDS ORDERED: STAT IV STA (07:33)
[2022-12-09] MEDS ORDERED: POTASSIUM CHLORIDE 20 MEQ/15 ML UDC PO ONE (07:45)
[2022-12-09] MEDS ORDERED: CALCIUM GLUCONATE 10% 2,000 MG in DEXTROSE 5% 50 ML IV ONE (07:45)
[2022-12-09] MEDS: MAGNESIUM OXIDE 400 MG TAB PO SCH (08:21)
[2022-12-09] MEDS: OSELTAMIVIR PHOSPHATE 75 MG CAP PO SCH ×2 (08:21→21:53)
[2022-12-09] MEDS: CYANOCOBALAMIN (B-12) 500 MCG TABLET PO SCH (08:21)
[2022-12-09] MEDS: CHOLECALCIFEROL 1,000 UNITS 25 MCG TAB PO SCH (08:21)
[2022-12-09] MEDS: MAGNESIUM SULFATE / D5W 1 GM/100 ML BAG IV SCH ×2 (08:52→11:02)
[2022-12-09] MEDS: POTASSIUM CHLORIDE / WTR 10 MEQ/100 ML PLCT IV SCH ×4 (08:53→12:36)
--- NOTE | 2022-12-09 09:50 | Emergency Department Note ---
Impression & Plan Esophageal cancer, Atrial fibrillation with RVR, Influenza A ED Provider Note CHIEF COMPLAINT: Weakness, esophageal cancer HISTORY OF PRESENT ILLNESS: This 72-year-old female patient presents to the emergency department who presents emergency department with complaints of weakness. The patient suffers from a history of esophageal cancer and has had some dark stools, weakness, has been vomiting and has not been able to ambulate now. Patient lives at home with her . She has been seen by palliative care due to her cancer history and recurrent bleeding. She also follows with oncology. History is limited due to the patient's inability to give details and her weakness. REVIEW OF SYSTEMS: As above. ALLERGIES: see below MEDICATIONS: see below PMH: see below SOCIAL HISTORY: see below DDx:Diverticulosis, AVM, coagulopathy, colitis, inflammatory bowel disease, malignancy, Gemini-Aguilar tear, esophagitis, peptic ulcer disease, variceal bleed, gastritis, epistaxis, fissure, hemorrhoids, as well as other pathologies. PHYSICAL EXAM: Vital signs reviewed. General: Chronically ill-appearing 72-year-old, in no significant distress. Cachectic and frail HEENT: No scleral icterus, PERRLA, neck supple. Dry mucous membranes. Cardiovascular: Tachycardic but regular, no extra sound. Pulmonary: Clear to auscultation bilaterally, normal work of breathing. Abdomen: Soft, nontender, nondistended, positive bowel sounds. Musculoskeletal: Atraumatic, no peripheral edema. Rectal: Guaiac positive dark brown/black stool Neurologic: Patient somnolent but arousable, answers some questions appropriately but fatigued and curled up in the blankets. Moves all extremities equally. Skin: Warm, dry, no rash EMERGENCY DEPARTMENT COURSE/MDM: This patient was evaluated and appeared to be in no distress but is chronically ill-appearing. Intravenous access was obtained through the patient's indwelling port. She was hydrated with normal saline solution. Patient is noted to be anemic on laboratory work. A follow-up guaiac stool was performed and is positive. Patient was started on IV Protonix drip and bolus. She was typed and crossed for 2 units of PRBCs which were ini tiated in the ER after consenting the patient and her sister at the bedside. Patient did receive a dose of IV metoprolol for persistent tachycardia. Patient is tested positive for COVID and influenza A, likely the source of her acute weakness in addition to the GI bleed. Case was discussed with the hospitalist service will evaluate the patient for admission and further management. MONITORING: An order for cardiac monitoring was placed and the patient is noted to be in a sinus tachycardia beats per minute. RADIOLOGY: Chest x-ray to my interpretation reveals right midlung field scarring/atelectasis, no evidence of failure, indwelling port identified. Otherwise defer to radiology EKG: To my interpretation reveals a normal sinus rhythm at [address] and T wave abnormalities, QTC is 454. No PVC, no PAC. No significant change from previous dated 11/09/2022 DISPOSITION: Admission I have personally spent greater than 35 minutes of critical care time in the direct management of this patient. This includes bedside care, interpretation of diagnostic studies, and testing, discussion with consultants, patient, and family members, and other required patient management activities. This 35 minutes is in excess of all separately billable procedures. Past Med/Surg History Medical History Altered mental status Anxiety Barretts esophagus Chronic obstructive pulmonary disease CKD (chronic kidney disease), stage III Coronary artery disease CABG x 2 (2009) cardiac stent x 1 (2014 - LCx) Degenerative disc disease Depression Esophageal cancer Ganglion cyst Surgery on both wrists for this GERD (gastroesophageal reflux disease) controlled Hyperlipidemia Hypertension Learning disability cannot spell/limited reading skills Migraine "haven't had one in awhile" Myocardial Infarction "silent" GA- remote/several years ago Osteoarthritis PAD (peripheral artery disease) <50% aorta-iliac system stenosis per 09/26/19 duplex Paroxysmal atrial fibrillation Peripheral neuropathy LLE Port-A-Cath in place PVD (peripheral vascular disease) Stroke "silent" stroke noted incidentally on imaging several years ago, no residual issues Surgical History Fusion of spine LUMBAR ACDF C5-C7: 10/30/17: Grade view 1, MAC#3, ETT 7.0 at [facility] H/O esophagogastroduodenoscopy H/O shoulder surgery Left H/O sinus surgery History of bilateral tubal ligation History of cardiac cath CABG x 2 (2009); Donna; f/u dr kemp, [place] cardiac stent x 1 (2014 - LCx); [facility] History of carpal tunnel surgery History of cholecystectomy History of colonoscopy History of esophagogastroduodenoscopy (EGD) History of Lauren fundoplication History of surgery Reconstruction of pyloris History of surgery Paraesophageal hernia repair with mesh in 2017 History of tonsillectomy History of tooth extraction History of total abdominal hysterectomy and bilateral salpingo-oophorectomy History of total hip arthroplasty LEFT History of total knee replacement RT/LEFT Removal of knee prosthesis S/P CABG (coronary artery bypass graft) Family History Father , 73yo Myocardial infarction Mother , in her 80s Breast cancer Myocardial infarction Brother Natural with unknown cause Brother Natural with unknown cause Brother No problems noted. Brother No problems noted. Sister Breast cancer Sister No problems noted. Sister No problems noted. Sister No problems noted. Son No problems noted. Daughter No problems noted. Daughter No problems noted. Daughter No problems noted. 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 Feels Safe at Home: Yes caffeine: No during the past year weight has: remained stable Assistive Devices: None Allergies Allergies Allergy/AdvReac Type Severity Reaction Status Date / Time sumatriptan AdvReac Unknown advised to Verified 12/08/22 18:58 avoid d/t hx heart surgery varenicline AdvReac Unknown advised to Verified 12/08/22 18:58 avoid d/t hx heart surgery Home Meds Home Medications Medication Instructions Recorded Confirmed atorvastatin 80 mg tablet 80 mg PO HS 03/22/19 12/08/22 trazodone 150 mg tablet 150 mg PO HS 03/22/19 12/08/22 acetaminophen 500 mg tablet 500 mg PO Q4 PRN Pain 10/29/22 12/08/22 (Tylenol Extra Strength) albuterol sulfate 2.5 mg/3 mL 2.5 mg inhalation Q4H PRN 10/29/22 12/08/22 (0.083 %) solution for nebulization Abdominal Discomfort fluticasone propionate 220 2 puff inhalation BID PRN as 10/29/22 12/08/22 mcg/actuation HFA aerosol inhaler directed (Flovent HFA) mecobalamin (vitamin B12) 1,000 1,000 mcg PO DAILY 10/29/22 12/08/22 mcg lozenges ropinirole 0.25 mg tablet 0.5 mg PO HS 10/29/22 12/08/22 tiotropium bromide 18 mcg capsule 1 cap inhalation DAILY PRN as 10/29/22 12/08/22 with inhalation device (Spiriva directed with HandiHaler) aspirin 81 mg chewable tablet 81 mg PO DAILY 10/30/22 12/08/22 cholecalciferol (vitamin D3) 25 25 mcg PO DAILY 10/30/22 12/08/22 mcg (1,000 unit) capsule albuterol sulfate 90 mcg/actuation 2 puff inhalation Q4 PRN Wheezing 10/31/22 12/08/22 aerosol inhaler magnesium oxide 400 mg PO DAILY 10/31/22 12/08/22 metoprolol succinate 50 mg 50 mg PO DAILY 10/31/22 12/08/22 tablet,extended release 24 hr lorazepam 0.5 mg tablet 0.5 mg PO Q6H PRN Anxiety 12/03/22 12/08/22 omeprazole 40 mg capsule,delayed 40 mg PO DAILY 12/03/22 12/08/22 release prochlorperazine maleate 10 mg 10 mg PO Q6H PRN NAUSEA/VOMITING 12/03/22 12/08/22 tablet (Compazine) dexamethasone 4 mg tablet See Rx Instructions .Route .COMPLEX 12/08/22 12/08/22 ondansetron HCl 8 mg tablet 8 mg PO Q8H PRN NAUSEA/VOMITING 12/08/22 12/08/22 pantoprazole 40 mg tablet,delayed 40 mg PO DAILY 12/08/22 12/08/22 release (Protonix) Results & Data (ED) Vital Signs Vital Signs - 24 hr 12/08/22 14:28 12/08/22 14:56 12/08/22 14:57 Temperature 36.6 C Temperature Source Oral Pulse Rate 79 Pulse Rate from SpO2 Sensor Respiratory Rate 16 Blood Pressure 87/60 L Blood Pressure Mean 69 Blood Pressure Position Pulse Oximetry 87 L 93 Oxygen Delivery Method Room Air Nasal Cannula Nasal Cannula Oxygen Flow Rate 2 2 Sepsis Recent Fever Within 48 Hours No Sepsis New/Unexplained Change in Mental Status N/A Sepsis Action Taken by Nursing No Action Required 12/08/22 15:04 12/08/22 15:22 12/08/22 15:22 Temperature Temperature Source Pulse Rate 95 H 96 H Pulse Rate from SpO2 Sensor Respiratory Rate 26 H 12 Blood Pressure 93/50 L Blood Pressure Mean 64 Blood Pressure Position Pulse Oximetry Oxygen Delivery Method Oxygen Flow Rate Sepsis Recent Fever Within 48 Hours Sepsis New/Unexplained Change in Mental Status Sepsis Action Taken by Nursing 12/08/22 15:30 12/08/22 15:30 12/08/22 15:31 Temperature Temperature Source Pulse Rate 119 H 120 H Pulse Rate from SpO2 Sensor 129 H 121 H Respiratory Rate 24 21 Blood Pressure 95/46 L Blood Pressure Mean 62 Blood Pressure Position Pulse Oximetry 95 96 Oxygen Delivery Method Oxygen Flow Rate Sepsis Recent Fever Within 48 Hours Sepsis New/Unexplained Change in Mental Status Sepsis Action Taken by Nursing 12/08/22 15:31 12/08/22 15:45 12/08/22 15:45 Temperature Temperature Source Pulse Rate 122 H Pulse Rate from SpO2 Sensor 123 H Respiratory Rate 21 Blood Pressure 95/56 L 76/59 L Blood Pressure Mean 69 64 Blood Pressure Position Pulse Oximetry 94 Oxygen Delivery Method Oxygen Flow Rate Sepsis Recent Fever Within 48 Hours Sepsis New/Unexplained Change in Mental Status Sepsis Action Taken by Nursing 12/08/22 15:48 12/08/22 15:48 12/08/22 15:52 Temperature Temperature Source Pulse Rate 129 H 128 H Pulse Rate from SpO2 Sensor 125 H 136 H Respiratory Rate 25 H 18 Blood Pressure 84/57 L Blood Pressure Mean 66 Blood Pressure Position Pulse Oximetry 95 89 L Oxygen Delivery Method Oxygen Flow Rate Sepsis Recent Fever Within 48 Hours Sepsis New/Unexplained Change in Mental Status Sepsis Action Taken by Nursing 12/08/22 15:52 12/08/22 16:00 12/08/22 16:00 Temperature Temperature Source Pulse Rate 122 H Pulse Rate from SpO2 Sensor 125 H Respiratory Rate 21 Blood Pressure 95/54 L 94/50 L Blood Pressure Mean 67 64 Blood Pressure Position Pulse Oximetry 95 Oxygen Delivery Method Oxygen Flow Rate Sepsis Recent Fever Within 48 Hours Sepsis New/Unexplained Change in Mental Status Sepsis Action Taken by Nursing 12/08/22 16:15 12/08/22 16:15 12/08/22 16:30 Temperature Temperature Source Pulse Rate 117 H Pulse Rate from SpO2 Sensor 125 H Respiratory Rate 14 Blood Pressure 68/44 L 94/44 L Blood Pressure Mean 52 60 Blood Pressure Position Pulse Oximetry 95 Oxygen Delivery Method Oxygen Flow Rate Sepsis Recent Fever Within 48 Hours Sepsis New/Unexplained Change in Mental Status Sepsis Action Taken by Nursing 12/08/22 16:30 12/08/22 16:53 12/08/22 16:53 Temperature Temperature Source Pulse Rate 119 H 127 H Pulse Rate from SpO2 Sensor 115 H 130 H Respiratory Rate 22 25 H Blood Pressure 100/44 L Blood Pressure Mean 62 Blood Pressure Position Pulse Oximetry 95 92 Oxygen Delivery Method Oxygen Flow Rate Sepsis Recent Fever Within 48 Hours Sepsis New/Unexplained Change in Mental Status Sepsis Action Taken by Nursing 12/08/22 17:00 12/08/22 17:00 12/08/22 17:09 Temperature Temperature Source Pulse Rate 107 H 121 H Pulse Rate from SpO2 Sensor 109 H Respiratory Rate 21 24 Blood Pressure 80/62 L Blood Pressure Mean 68 Blood Pressure Position Pulse Oximetry 97 85 L Oxygen Delivery Method Oxygen Flow Rate Sepsis Recent Fever Within 48 Hours Sepsis New/Unexplained Change in Mental Status Sepsis Action Taken by Nursing 12/08/22 17:09 12/08/22 17:10 12/08/22 17:15 Temperature Temperature Source Pulse Rate 117 H Pulse Rate from SpO2 Sensor Respiratory Rate 25 H Blood Pressure 79/55 L 85/50 L Blood Pressure Mean 63 61 Blood Pressure Position Pulse Oximetry Oxygen Delivery Method Oxygen Flow Rate Sepsis Recent Fever Within 48 Hours Sepsis New/Unexplained Change in Mental Status Sepsis Action Taken by Nursing 12/08/22 17:15 12/08/22 17:20 12/08/22 17:23 Temperature Temperature Source Pulse Rate 117 H 112 H Pulse Rate from SpO2 Sensor Respiratory Rate 22 22 Blood Pressure 83/55 L Blood Pressure Mean 64 Blood Pressure Position Pulse Oximetry Oxygen Delivery Method Oxygen Flow Rate Sepsis Recent Fever Within 48 Hours Sepsis New/Unexplained Change in Mental Status Sepsis Action Taken by Nursing 12/08/22 17:23 12/08/22 17:29 12/08/22 17:29 Temperature Temperature Source Pulse Rate 121 H 110 H Pulse Rate from SpO2 Sensor Respiratory Rate 23 29 H Blood Pressure 85/49 L Blood Pressure Mean 61 Blood Pressure Position Pulse Oximetry Oxygen Delivery Method Oxygen Flow Rate Sepsis Recent Fever Within 48 Hours Sepsis New/Unexplained Change in Mental Status Sepsis Action Taken by Nursing 12/08/22 17:30 12/08/22 17:30 12/08/22 17:40 Temperature Temperature Source Pulse Rate 121 H Pulse Rate from SpO2 Sensor Respiratory Rate 22 Blood Pressure 91/47 L 90/47 L Blood Pressure Mean 61 61 Blood Pressure Position Pulse Oximetry Oxygen Delivery Method Oxygen Flow Rate Sepsis Recent Fever Within 48 Hours Sepsis New/Unexplained Change in Mental Status Sepsis Action Taken by Nursing 12/08/22 17:40 12/08/22 17:50 12/08/22 17:50 Temperature Temperature Source Pulse Rate 108 H 113 H Pulse Rate from SpO2 Sensor 116 H 118 H Respiratory Rate 35 H 43 H Blood Pressure 77/53 L Blood Pressure Mean 61 Blood Pressure Position Pulse Oximetry 100 100 Oxygen Delivery Method Oxygen Flow Rate Sepsis Recent Fever Within 48 Hours Sepsis New/Unexplained Change in Mental Status Sepsis Action Taken by Nursing 12/08/22 17:55 12/08/22 17:55 12/08/22 18:00 Temperature Temperature Source Pulse Rate 106 H Pulse Rate from SpO2 Sensor 108 H Respiratory Rate 25 H Blood Pressure 85/59 L 99/62 L Blood Pressure Mean 67 74 Blood Pressure Position Pulse Oximetry 100 Oxygen Delivery Method Oxygen Flow Rate Sepsis Recent Fever Within 48 Hours Sepsis New/Unexplained Change in Mental Status Sepsis Action Taken by Nursing 12/08/22 18:00 12/08/22 18:10 12/08/22 18:10 Temperature Temperature Source Pulse Rate 114 H 112 H Pulse Rate from SpO2 Sensor 109 H 109 H Respiratory Rate 38 H 27 H Blood Pressure 90/53 L Blood Pressure Mean 65 Blood Pressure Position Pulse Oximetry 100 100 Oxygen Delivery Method Oxygen Flow Rate Sepsis Recent Fever Within 48 Hours Sepsis New/Unexplained Change in Mental Status Sepsis Action Taken by Nursing 12/08/22 18:20 12/08/22 18:20 12/08/22 18:30 Temperature Temperature Source Pulse Rate 114 H Pulse Rate from SpO2 Sensor 117 H Respiratory Rate 32 H Blood Pressure 93/62 L 92/52 L Blood Pressure Mean 72 65 Blood Pressure Position Pulse Oximetry 100 Oxygen Delivery Method Oxygen Flow Rate Sepsis Recent Fever Within 48 Hours Sepsis New/Unexplained Change in Mental Status Sepsis Action Taken by Nursing 12/08/22 18:30 12/08/22 19:26 12/08/22 19:45 Temperature 36.5 C 36.8 C Temperature Source Oral Oral Pulse Rate 112 H 121 H 110 H Pulse Rate from SpO2 Sensor 109 H Respiratory Rate 24 24 22 Blood Pressure 104/59 L 92/52 L Blood Pressure Mean 74 65 Blood Pressure Position Lying Pulse Oximetry 100 100 100 Oxygen Delivery Method Oxygen Flow Rate 3 3 Sepsis Recent Fever Within 48 Hours Sepsis New/Unexplained Change in Mental Status Sepsis Action Taken by Nursing 12/08/22 19:58 12/08/22 20:00 12/08/22 20:29 Temperature 37.0 C 36.4 C L Temperature Source Oral Oral Pulse Rate 116 H 113 H Pulse Rate from SpO2 Sensor Respiratory Rate 19 24 Blood Pressure 84/49 L 90/51 L Blood Pressure Mean 60 64 Blood Pressure Position Pulse Oximetry 100 100 100 Oxygen Delivery Method Nasal Cannula Oxygen Flow Rate 3 3 3 Sepsis Recent Fever Within 48 Hours Sepsis New/Unexplained Change in Mental Status Sepsis Action Taken by Nursing 12/08/22 20:30 12/08/22 21:30 Temperature 36.4 C L 36.9 C Temperature Source Oral Oral Pulse Rate 117 H 123 H Pulse Rate from SpO2 Sensor Respiratory Rate 24 25 H Blood Pressure 83/60 L 93/35 L Blood Pressure Mean 67 54 Blood Pressure Position Pulse Oximetry 100 100 Oxygen Delivery Method Oxygen Flow Rate 3 1 Sepsis Recent Fever Within 48 Hours Sepsis New/Unexplained Change in Mental Status Sepsis Action Taken by Long Term Medications Current Medication List: was personally reviewed by me Laboratory Data Attestation: I reviewed the patient's lab results. 12/09/22 05:36 12/09/22 05:36 Lab Results 12/08/22 12/08/22 12/08/22 Range/Units 15:11 15:11 15:11 WBC 2.38 L (4.8-10.8) K/ul RBC 2.74 L (3.93-5.22) M/uL Hgb 7.6 L (12.0-16.0) g/dl Hct 22.8 L (34.1-44.9) % MCV 83.2 (80.0-100.0) fL MCH 27.7 (25.0-34.0) pg MCHC 33.3 (32.0-36.0) g/dL RDW Std Deviation 45.1 (36.4-46.3) fL RDW Coeff of Cassi 14.9 H (11.5-14.5) % Plt Count 140 (130-400) K/uL MPV 12.4 H (9.4-12.3) fL Immature Gran % (Auto) 0.8 % Neut % (Auto) 82.7 % Lymph % (Auto) 7.6 % [place] % (Auto) 7.6 % Eos % (Auto) 0.0 % Baso % (Auto) 1.3 % Neut # (Auto) 1.97 (1.4-6.5) K/uL Lymph # (Auto) 0.18 L (1.2-3.4) K/uL [place] # (Auto) 0.18 L (0.24-0.82) K/uL Eos # (Auto) 0.00 (0-0.50) K/uL Baso # (Auto) 0.03 (0-0.2) K/uL Immature Gran # (Auto) 0.02 (0.00-0.02) K/uL Toxic Granulation 1+ Echinocytes 1+ Acanthocytes (Spur) 1+ PT 12.9 H (9.0-12.0) Seconds INR 1.2 H (0.9-1.1) APTT 36.2 H (21.0-31.0) Seconds PTT Ratio 1.3 Sodium 130 L (136-145) mmol/L Potassium 3.6 (3.5-5.1) mmol/L Chloride 91 L (98-107) mmol/L Carbon Dioxide 31 (21-32) mmol/L Anion Gap 8 (3-11) BUN 20 (6-23) mg/dl Creatinine 0.58 L (0.6-1.2) mg/dl Est Cr Clr Drug Dosing 75.7 ml/min Est GFR ( Amer) 106.7 ml/min Est GFR (Non-Af Amer) 92.1 ml/min BUN/Creatinine Ratio 34.5 H (10-20) Glucose 161 H (70-99(Fasting)) mg/dl Calcium 7.3 L (8.5-10.1) mg/dl Total Bilirubin 1.1 H (0.2-1.0) mg/dl AST 15 (13-39) U/L ALT 12 (7-52) U/L Alkaline Phosphatase 64 (34-104) U/L Troponin I High Sens 23.9 H (0-14) pg/ml Total Protein 4.6 L (6.0-8.3) gm/dl Albumin 2.1 L (3.4-5.0) gm/dl Globulin 2.5 (2.5-4.0) gm/dl Albumin/Globulin Ratio 0.8 L (0.9-2) SARS-CoV-2 (PCR) (Negative) Influenza Type A (PCR) (Neg) Influenza Type B (PCR) (Neg) RSV (RT-PCR) (Neg) Blood Type Antibody Screen Crossmatch 12/08/22 12/08/22 Range/Units 15:25 16:52 WBC (4.8-10.8) K/ul RBC (3.93-5.22) M/uL Hgb (12.0-16.0) g/dl Hct (34.1-44.9) % MCV (80.0-100.0) fL MCH (25.0-34.0) pg MCHC (32.0-36.0) g/dL RDW Std Deviation (36.4-46.3) fL RDW Coeff of Cassi (11.5-14.5) % Plt Count (130-400) K/uL MPV (9.4-12.3) fL Immature Gran % (Auto) % Neut % (Auto) % Lymph % (Auto) % [place] % (Auto) % Eos % (Auto) % Baso % (Auto) % Neut # (Auto) (1.4-6.5) K/uL Lymph # (Auto) (1.2-3.4) K/uL [place] # (Auto) (0.24-0.82) K/uL Eos # (Auto) (0-0.50) K/uL Baso # (Auto) (0-0.2) K/uL Immature Gran # (Auto) (0.00-0.02) K/uL Toxic Granulation Echinocytes Acanthocytes (Spur) PT (9.0-12.0) Seconds INR (0.9-1.1) APTT (21.0-31.0) Seconds PTT Ratio Sodium (136-145) mmol/L Potassium (3.5-5.1) mmol/L Chloride (98-107) mmol/L Carbon Dioxide (21-32) mmol/L Anion Gap (3-11) BUN (6-23) mg/dl Creatinine (0.6-1.2) mg/dl Est Cr Clr Drug Dosing ml/min Est GFR ( Amer) ml/min Est GFR (Non-Af Amer) ml/min BUN/Creatinine Ratio (10-20) Glucose (70-99(Fasting)) mg/dl Calcium (8.5-10.1) mg/dl Total Bilirubin (0.2-1.0) mg/dl AST (13-39) U/L ALT (7-52) U/L Alkaline Phosphatase (34-104) U/L Troponin I High Sens (0-14) pg/ml Total Protein (6.0-8.3) gm/dl Albumin (3.4-5.0) gm/dl Globulin (2.5-4.0) gm/dl Albumin/Globulin Ratio (0.9-2) SARS-CoV-2 (PCR) POSITIVE A* (Negative) Influenza Type A (PCR) Positive A* (Neg) Influenza Type B (PCR) Negative (Neg) RSV (RT-PCR) Negative (Neg) Blood Type O Positive Antibody Screen NEGATIVE Crossmatch See Detail Administered Medications Discontinued Medications Acetaminophen (Acetaminophen 325 Mg Tab) 650 mg PO Q4H PRN PRN Reason: Pain or Fever Stop: 01/07/23 23:28 Last Admin: 12/10/22 10:25 Dose: 650 mg Documented By: DEONTE Amiodarone HCl (Amiodarone 200 Mg Tab) 200 mg PO BIDM ANDREY Stop: 01/08/23 07:59 Last Admin: 12/10/22 10:23 Dose: 200 mg Documented By: Admin: 12/09/22 17:08 Dose: 200 mg Documented By: Admin: 12/09/22 06:32 Dose: 200 mg Documented By: YONIS Atorvastatin Calcium (Atorvastatin 40 Mg Tab) 80 mg PO HS ANDREY Stop: 01/08/23 20:59 Last Admin: 12/09/22 21:53 Dose: 80 mg Documented By: NOE Cyanocobalamin (Cyanocobalamin (B-12) 500 Mcg Tablet) 1,000 mcg PO DAILY ANDREY Stop: 01/08/23 08:59 Last Admin: 12/10/22 10:23 Dose: 1,000 mcg Documented By: Admin: 12/09/22 08:21 Dose: 1,000 mcg Documented By: RALEIGH Glycopyrrolate (Glycopyrrolate 0.2 Mg/Ml Vial) 0.4 mg IV Q2H PRN PRN Reason: Secretions or Pulm Congestion Stop: 01/09/23 14:44 Last Admin: 12/14/22 05:16 Dose: 0.4 mg Documented By: Admin: 12/13/22 20:57 Dose: 0.4 mg Documented By: Admin: 12/13/22 14:22 Dose: 0.4 mg Documented By: Admin: 12/12/22 20:03 Dose: 0.4 mg Documented By: Admin: 12/12/22 14:23 Dose: 0.4 mg Documented By: Admin: 12/12/22 05:43 Dose: 0.4 mg Documented By: Admin: 12/12/22 02:02 Dose: 0.4 mg Documented By: Admin: 12/11/22 21:40 Dose: 0.4 mg Documented By: GRIFFIN Heparin Sodium (Porcine) (Heparin 100 Unit/Ml 5ml Flush) 5 ml FLUSH PRN PRN PRN Reason: Flush Stop: 01/10/23 00:58 Last Admin: 12/14/22 05:16 Dose: 5 ml Documented By: Admin: 12/13/22 20:56 Dose: 5 ml Documented By: Admin: 12/13/22 18:38 Dose: 5 ml Documented By: Admin: 12/13/22 14:22 Dose: 5 ml Documented By: Admin: 12/13/22 13:21 Dose: 5 ml Documented By: Admin: 12/13/22 08:35 Dose: 5 ml Documented By: Admin: 12/13/22 05:53 Dose: 5 ml Documented By: Admin: 12/12/22 20:23 Dose: 5 ml Documented By: Admin: 12/12/22 16:59 Dose: 5 ml Documented By: Admin: 12/12/22 13:27 Dose: 5 ml Documented By: Admin: 12/12/22 10:01 Dose: 5 ml Documented By: Admin: 12/12/22 02:04 Dose: 5 ml Documented By: Admin: 12/11/22 21:29 Dose: 5 ml Documented By: GRIFFIN Pantoprazole Sodium (Protonix Bolus/Drip) 0 mls @ 1 mls/hr IV ONE STA Stop: 12/08/22 16:42 Last Admin: 12/08/22 17:24 Dose: Not Given Documented By: BERT Pantoprazole Sodium 40 mg/ (Dextrose) 100 mls @ 20 mls/hr IV Q5H ANDREY Stop: 01/07/23 16:59 Last Admin: 12/10/22 07:48 Dose: Not Given Documented By: Infusion: 12/09/22 07:45 Dose: 0 mg/hr, 0 mls/hr Documented By: Admin: 12/08/22 17:25 Dose: 8 mg/hr, 20 mls/hr Documented By: BERT Pantoprazole Sodium 80 mg/ (Dextrose) 120 mls @ 400 mls/hr IV NOW ONE Stop: 12/08/22 16:58 Last Infusion: 12/08/22 19:36 Dose: 0 mls/hr Documented By: Admin: 12/08/22 17:08 Dose: 400 mls/hr Documented By: BERT Sodium Chloride (Nss) 250 mls @ 15 mls/hr IV .[id number] PRN PRN Reason: For Transfusion Duration Stop: 12/09/22 02:42 Last Infusion: 12/09/22 07:46 Dose: 0 mls/hr Documented By: Admin: 12/08/22 17:39 Dose: 15 mls/hr Documented By: BERT Sodium Chloride (Nss 1000ml) 1,000 mls @ 75 mls/hr IV .[id number] [facility] Stop: 01/07/23 23:28 Last Infusion: 12/10/22 15:00 Dose: 0 mls/hr Documented By: Admin: 12/10/22 05:02 Dose: 75 mls/hr Documented By: Infusion: 12/10/22 05:02 Dose: 75 mls/hr Documented By: Infusion: 12/10/22 02:10 Dose: 75 mls/hr Documented By: Infusion: 12/10/22 00:47 Dose: 0 mls/hr Documented By: Admin: 12/09/22 17:07 Dose: 75 mls/hr Documented By: Infusion: 12/09/22 16:18 Dose: 125 mls/hr Documented By: Admin: 12/09/22 08:18 Dose: 125 mls/hr Documented By: Infusion: 12/09/22 08:05 Dose: 125 mls/hr Documented By: Admin: 12/09/22 00:05 Dose: 125 mls/hr Documented By: YONIS Pantoprazole Sodium 40 mg/ (Dextrose) 100 mls @ 20 mls/hr IV Q5H ANDREY Stop: 01/08/23 00:00 Last Infusion: 12/09/22 15:40 Dose: 0 mg/hr, 0 mls/hr Documented By: Admin: 12/09/22 15:34 Dose: 8 mg/hr, 20 mls/hr Documented By: Infusion: 12/09/22 14:52 Dose: 8 mg/hr, 20 mls/hr Documented By: Admin: 12/09/22 09:52 Dose: 8 mg/hr, 20 mls/hr Documented By: Infusion: 12/09/22 09:52 Dose: 8 mg/hr, 20 mls/hr Documented By: Admin: 12/09/22 05:15 Dose: 8 mg/hr, 20 mls/hr Documented By: Infusion: 12/09/22 05:15 Dose: 8 mg/hr, 20 mls/hr Documented By: Admin: 12/09/22 00:44 Dose: 8 mg/hr, 20 mls/hr Documented By: SB Remdesivir 200 mg/ Sodium (Chloride) 250 mls @ 125 mls/hr IV ONE ONE; Protocol Stop: 12/09/22 02:14 Last Infusion: 12/09/22 03:02 Dose: 0 mls/hr Documented By: Admin: 12/09/22 00:48 Dose: 125 mls/hr Documented By: SB Remdesivir 100 mg/ Sodium (Chloride) 250 mls @ 250 mls/hr IV Q24H ANDREY Stop: 12/13/22 12:59 Last Admin: 12/10/22 14:18 Dose: Not Given Documented By: ES Sodium Chloride (Nss) 250 mls @ 250 mls/hr IV .Q1H ANDREY Stop: 12/09/22 07:29 Last Admin: 12/09/22 07:48 Dose: Not Given Documented By: WS Potassium Chloride (K Krish / Wtr) 10 meq in 100 mls @ 100 mls/hr IV Q1H ANDREY Stop: 12/09/22 11:44 Last Infusion: 12/09/22 13:54 Dose: 0 mls/hr Documented By: Admin: 12/09/22 12:36 Dose: 100 mls/hr Documented By: Infusion: 12/09/22 12:02 Dose: 100 mls/hr Documented By: Admin: 12/09/22 11:02 Dose: 100 mls/hr Documented By: Infusion: 12/09/22 10:47 Dose: 100 mls/hr Documented By: Admin: 12/09/22 09:47 Dose: 100 mls/hr Documented By: Infusion: 12/09/22 09:47 Dose: 100 mls/hr Documented By: Admin: 12/09/22 08:53 Dose: 100 mls/hr Documented By: RALEIGH Calcium Gluconate 2,000 mg/ (Dextrose) 70 mls @ 240 mls/hr IV ONE ONE Stop: 12/09/22 08:02 Last Infusion: 12/09/22 08:55 Dose: 0 mls/hr Documented By: Admin: 12/09/22 08:15 Dose: 240 mls/hr Documented By: RALEIGH Magnesium Sulfate/Dextrose (Magnesium Sulfate / D5w) 1 gm in 100 mls @ 50 mls/hr IV Q2H ANDREY Stop: 12/09/22 11:44 Last Infusion: 12/09/22 13:21 Dose: 0 mls/hr Documented By: Admin: 12/09/22 11:02 Dose: 50 mls/hr Documented By: Infusion: 12/09/22 10:52 Dose: 50 mls/hr Documented By: Admin: 12/09/22 08:52 Dose: 50 mls/hr Documented By: RALEIGH Pantoprazole Sodium 40 mg/ (Syringe) 10 mls @ 5 mls/min IV BID ANDREY Stop: 01/08/23 20:59 Last Admin: 12/10/22 10:22 Dose: 5 mls/min Documented By: Admin: 12/09/22 21:55 Dose: 5 mls/min Documented By: NOE Cefepime HCl 2,000 mg/ Syringe 20 mls @ 5 mls/min IV Q8H ANDREY; Protocol Stop: 12/11/22 15:59 Last Admin: 12/10/22 14:18 Dose: Not Given Documented By: Admin: 12/10/22 10:22 Dose: 5 mls/min Documented By: Admin: 12/10/22 00:46 Dose: 5 mls/min Documented By: Admin: 12/09/22 17:07 Dose: 5 mls/min Documented By: RALEIGH Vancomycin HCl 1,500 mg/ (Sodium Chloride) 530 mls @ 200 mls/hr IV NOW ONE; Protocol Stop: 12/09/22 18:38 Last Infusion: 12/09/22 19:46 Dose: 0 mls/hr Documented By: Admin: 12/09/22 17:07 Dose: 200 mls/hr Documented By: RALEIGH Vancomycin HCl 1,250 mg/ (Sodium Chloride) 275 mls @ 200 mls/hr IV Q12H ANDREY; Protocol Stop: 12/12/22 00:00 Last Admin: 12/10/22 14:18 Dose: Not Given Documented By: Infusion: 12/10/22 02:09 Dose: 0 mls/hr Documented By: Admin: 12/10/22 00:46 Dose: 200 mls/hr Documented By: NOE Lorazepam (Lorazepam 2 Mg/1 Ml Vial) 1 mg IV Q4H PRN PRN Reason: Anxiety/Agitation Stop: 01/09/23 14:44 Last Admin: 12/12/22 02:02 Dose: 1 mg Documented By: Admin: 12/11/22 21:40 Dose: 1 mg Documented By: Admin: 12/11/22 17:25 Dose: 1 mg Documented By: Admin: 12/11/22 08:15 Dose: 1 mg Documented By: XENIA Magnesium Oxide (Magnesium Oxide 400 Mg Tab) 400 mg PO DAILY ADNREY Stop: 01/08/23 08:59 Last Admin: 12/10/22 10:24 Dose: 400 mg Documented By: Admin: 12/09/22 08:21 Dose: 400 mg Documented By: RALEIGH Metoprolol Tartrate (Metoprolol Tartrate 1 Mg/Ml Vial) 5 mg IV NOW STA Stop: 12/08/22 16:42 Last Admin: 12/08/22 17:43 Dose: 2.5 mg Documented By: BERT Metoprolol Tartrate (Metoprolol Tartrate 50 Mg Tab) 50 mg PO BID ANDREY Stop: 01/08/23 10:14 Last Admin: 12/10/22 10:24 Dose: 50 mg Documented By: Admin: 12/09/22 21:53 Dose: 50 mg Documented By: Admin: 12/09/22 11:04 Dose: 50 mg Documented By: RALEIGH Morphine Sulfate (Morphine Sulfate 2 Mg/Ml Carp) 2 mg IV Q30M PRN PRN Reason: Pain or Respiratory Distress Stop: 12/24/22 14:44 Last Admin: 12/14/22 05:16 Dose: 2 mg Documented By: Admin: 12/13/22 20:57 Dose: 2 mg Documented By: Admin: 12/13/22 18:38 Dose: 2 mg Documented By: Admin: 12/13/22 13:21 Dose: 2 mg Documented By: Admin: 12/13/22 08:34 Dose: 2 mg Documented By: Admin: 12/13/22 05:53 Dose: 2 mg Documented By: Admin: 12/12/22 20:03 Dose: 2 mg Documented By: Admin: 12/12/22 16:59 Dose: 2 mg Documented By: Admin: 12/12/22 13:27 Dose: 2 mg Documented By: Admin: 12/12/22 10:00 Dose: 2 mg Documented By: Admin: 12/11/22 21:29 Dose: 2 mg Documented By: Admin: 12/11/22 17:24 Dose: 2 mg Documented By: Admin: 12/11/22 12:11 Dose: 2 mg Documented By: Admin: 12/11/22 08:15 Dose: 2 mg Documented By: XENIA Oseltamivir Phosphate (Oseltamivir Phosphate 75 Mg Cap) 75 mg PO NOW STA; Protocol Stop: 12/08/22 23:49 Last Admin: 12/09/22 00:49 Dose: 75 mg Documented By: YONIS Oseltamivir Phosphate (Oseltamivir Phosphate 75 Mg Cap) 75 mg PO BID ANDREY; Protocol Stop: 12/13/22 09:01 Last Admin: 12/10/22 10:24 Dose: 75 mg Documented By: Admin: 12/09/22 21:53 Dose: 75 mg Documented By: Admin: 12/09/22 08:21 Dose: 75 mg Documented By: RALEIGH Potassium Chloride (Potassium Chloride 20 Meq/15 Ml Udc) 20 meq PO ONE ONE Stop: 12/09/22 07:46 Last Admin: 12/09/22 08:21 Dose: 20 meq Documented By: WS Ropinirole HCl (Ropinirole Hcl 0.25 Mg Tablet) 0.5 mg PO HS ANDREY Stop: 01/08/23 20:59 Last Admin: 12/09/22 21:54 Dose: 0.5 mg Documented By: BLOW MACHINE [employer]ER [employer] Trazodone HCl (Trazodone Hcl 50 Mg Tab) 150 mg PO HS ANDREY Stop: 01/08/23 20:59 Last Admin: 12/09/22 21:54 Dose: 150 mg Documented By: BL[employer] MACH[employer] Vitamin D (Cholecalciferol 1,000 Units 25 Mcg Tab) 1,000 units PO DAILY ANDREY Stop: 01/08/23 08:59 Last Admin: 12/10/22 10:23 Dose: 1,000 units Documented By: Admin: 12/09/22 08:21 Dose: 1,000 units Documented By: RALEIGH Imaging Data Radiologist's Impression: Chest X-Ray 12/08/22 15:38 XR chest 1V portable HISTORY: Chest pain, nonspecific COMPARISON: Chest 11/07/2019. FINDINGS: No pneumothorax. Trace bilateral pleural effusions remain unchanged. Interstitial thickening within the lung bases and a linear scarlike density within the right lower lobe persist. There are post sternotomy changes. Right Port-A-Cath terminates in the distal SVC. Cervical spinal fusion hardware. Gastric pull-through with an associated stent again noted. IMPRESSION: 1. No significant change compared to the prior study. 2. Emphysema with chronic interstitial thickening again noted at the lung bases. 3. Trace bilateral pleural effusions persist. 4. Gastric pull-through with stent, unchanged. ACT 112: Negative or not required by law. Electronically signed by: John Jones M.D. 12/08/2022 3:49 PM Blood Pressure Blood Pressure Findings: Low blood pressure Blood Pressure Disposition: further management by hospitalist Discharge Plan Visit Data Chief Complaint: Weakness Stated Complaint: WEAKNESS ED Provider: Lakshmi Siu Discharge Problem: Esophageal cancer, Atrial fibrillation with RVR, Influenza A Patient Disposition: Admitted As Inpatient Discharge Instructions Interventions: ED Discharge Assessment Last Done: 12/08/22 22:50 : Esophageal cancer Qualifiers: Malignant neoplasm of esophagus location: unspecified location Qualified Code(s): C15.9 - Malignant neoplasm of esophagus, unspecified
[2022-12-09] MEDS: METOPROLOL TARTRATE 50 MG TAB PO SCH ×2 (11:04→21:53)
--- NOTE | 2022-12-09 11:20 | Palliative Care Consultation ---
Date of Consultation December 09, 2022 Assessment & Plan (1) Palliative care encounter: (2) Advanced care planning/counseling discussion: Dr. Connolly meeting with at 2pm, I am unable to attend due to another scheduled family meeting. shared with Dr Connolly via teleconference hat he and pt had prior discussions re EOL, she didn't want to be sustained on machines/have CPR at this advanced stage of illness. They are going to discuss this further but this reporting is c/w a code status of DNR/DNI. Pt has an advanced cancer with complications of flu and covid this admission. She has a marginal PS. She is not a candidate for invasive/aggressive therapies. Her overall prognosis is poor, she does not have a curable cancer. (3) Weakness generalized: (4) Altered mental status: (5) Dyspnea and respiratory abnormalities: (6) Nausea & vomiting: (7) Esophageal carcinoma: Pathology 08/2022: Esophagus, "biopsy of esophageal mass" (biopsy): - A poorly differentiated carcinoma consistent with adenocarcinoma of the esophagus is seen. Plan Family meeting 2pm with primary team and , will update me afterwards if further pall med assistance is needed. For now, will follow peripherally. Jade Moore DNP Clinical Director, Palliative Medicine History of Present Illness Reason for Consultation: On 12/09/22 @ 10:27 Thomas Connolly Wrote To Jesusita Horton Goals of care discussion. Esophageal ca on chemoth Attending Physician: Thomas Connolly MD History of Present Illness Pt is not a reliable historian. She is a 72yo female admitted from home. Admitting note states: "The patient was diagnosed with esophageal adenocarcinoma on 09/03/2022 and when she was getting EGD done on 10/17/2022, she was in SVT and also she was admitted on 10/31/2022 with nausea, SVT, and rapid AFib, and she had prolonged hospital stay and she was discharged on 11/12/2022. During the hospital stay, she was seen by cardiology and GI. Found to have gastritis, esophagitis, and also endoscopic ultrasound on 11/04/2022 showed distal esophageal circumferential malignancy stage III, N0 MX by sonographic criteria and a very high risk of massive upper GI bleeding if she is on anticoagulation due to ongoing blood oozing over the large esophageal cancer.And she had EGD on 11/06/2022 showing obstructing malignant esophageal tumor in the lower third of the esophagus, esophageal stent placed. She was placed on Protonix and Pepcid. Aspirin was restarted on 11/09/2022. Eliquis was held indefinitely due to high risk of upper GI bleed. The patient is supposed to be on amiodarone. At the time of discharge, she was prescribed amiodarone, but seems not on medrec done today The patient is a poor historian. Tried to call the and he said the patient was sent here because of sickness, but when asked further questions, he got somewhat irritated and said he is not a doctor. There is a question of some vomiting of blood, but I could not get any history from the patient and the . The patient says she is not ambulating since her discharge. She is having some chest pain, feeling of heart racing, some abdominal discomfort. Appetite is poor. Denies any headache. No blurred visions, no cough, no fevers, no runny nose, has some sore throat. She says she did not notice any blood in the stool, but she says they found it out here. She says she is micturating okay. Alert and oriented, but somewhat weak. Patient was covid and flu positive in ER. Denies fevers or sob.But she was satting 85% on room air." PMH: CAD, status post CABG, status post stent, paroxysmal atrial fibrillation. Eliquis was stopped last admission because of esophageal cancer and high risk of bleeding and only on aspirin, history of resolved cardiomyopathy, history of per ipheral vascular disease, history of TIA, hypertension, hyperlipidemia, history of Williamson's esophagus, recent diagnosis of esophageal adenocarcinoma, history of prediabetes, chronic anemia, baseline hemoglobin around 9-10, history of tobacco abuse, used to smoke 1-2 packs of cigarettes daily Allergies Allergy/AdvReac Type Severity Reaction Status Date / Time sumatriptan AdvReac Unknown advised to Verified 12/08/22 18:58 avoid d/t hx heart surgery varenicline AdvReac Unknown advised to Verified 12/08/22 18:58 avoid d/t hx heart surgery Home Medications Medication Instructions Recorded Confirmed Type atorvastatin 80 mg tablet 80 mg PO HS 03/22/19 12/08/22 History trazodone 150 mg tablet 150 mg PO HS 03/22/19 12/08/22 History acetaminophen 500 mg tablet 500 mg PO Q4 PRN Pain 10/29/22 12/08/22 History (Tylenol Extra Strength) albuterol sulfate 2.5 mg/3 mL 2.5 mg inhalation Q4H PRN 10/29/22 12/08/22 History (0.083 %) solution for nebulization Abdominal Discomfort fluticasone propionate 220 2 puff inhalation BID PRN as 10/29/22 12/08/22 History mcg/actuation HFA aerosol inhaler directed (Flovent HFA) mecobalamin (vitamin B12) 1,000 1,000 mcg PO DAILY 10/29/22 12/08/22 History mcg lozenges ropinirole 0.25 mg tablet 0.5 mg PO HS 10/29/22 12/08/22 History tiotropium bromide 18 mcg capsule 1 cap inhalation DAILY PRN as 10/29/22 12/08/22 History with inhalation device (Spiriva directed with HandiHaler) aspirin 81 mg chewable tablet 81 mg PO DAILY 10/30/22 12/08/22 History cholecalciferol (vitamin D3) 25 25 mcg PO DAILY 10/30/22 12/08/22 History mcg (1,000 unit) capsule albuterol sulfate 90 mcg/actuation 2 puff inhalation Q4 PRN Wheezing 10/31/22 12/08/22 History aerosol inhaler magnesium oxide 400 mg PO DAILY 10/31/22 12/08/22 History metoprolol succinate 50 mg 50 mg PO DAILY 10/31/22 12/08/22 History tablet,extended release 24 hr lorazepam 0.5 mg tablet 0.5 mg PO Q6H PRN Anxiety 12/03/22 12/08/22 History omeprazole 40 mg capsule,delayed 40 mg PO DAILY 12/03/22 12/08/22 History release prochlorperazine maleate 10 mg 10 mg PO Q6H PRN NAUSEA/VOMITING 12/03/22 12/08/22 History tablet (Compazine) dexamethasone 4 mg tablet See Rx Instructions .Route .COMPLEX 12/08/22 12/08/22 History ondansetron HCl 8 mg tablet 8 mg PO Q8H PRN NAUSEA/VOMITING 12/08/22 12/08/22 History pantoprazole 40 mg tablet,delayed 40 mg PO DAILY 12/08/22 12/08/22 History release (Protonix) Patient History Medical History (Updated 12/09/22 @ 12:27 by JC Baca) Altered mental status Anxiety Barretts esophagus Chronic obstructive pulmonary disease CKD (chronic kidney disease), stage III Coronary artery disease CABG x 2 (2009) cardiac stent x 1 (2014 - LCx) Degenerative disc disease Depression Esophageal cancer Ganglion cyst Surgery on both wrists for this GERD (gastroesophageal reflux disease) controlled Hyperlipidemia Hypertension Learning disability cannot spell/limited reading skills Migraine "haven't had one in awhile" Myocardial Infarction "silent" IA- remote/several years ago Osteoarthritis PAD (peripheral artery disease) <50% aorta-iliac system stenosis per 09/26/19 duplex Paroxysmal atrial fibrillation Peripheral neuropathy LLE Port-A-Cath in place PVD (peripheral vascular disease) Stroke "silent" stroke noted incidentally on imaging several years ago, no residual issues Surgical History Fusion of spine LUMBAR ACDF C5-C7: 10/30/17: Grade view 1, MAC#3, ETT 7.0 at [facility] H/O esophagogastroduodenoscopy H/O shoulder surgery Left H/O sinus surgery History of bilateral tubal ligation History of cardiac cath CABG x 2 (2009); [place]; f/u dr kemp, vt cardiac stent x 1 (2014 - LCx); [facility] History of carpal tunnel surgery History of cholecystectomy History of colonoscopy History of esophagogastroduodenoscopy (EGD) History of Lauren fundoplication History of surgery Reconstruction of pyloris History of surgery Paraesophageal hernia repair with mesh in 2017 History of tonsillectomy History of tooth extraction History of total abdominal hysterectomy and bilateral salpingo-oophorectomy History of total hip arthroplasty LEFT History of total knee replacement RT/LEFT Removal of knee prosthesis S/P CABG (coronary artery bypass graft) Family History Father , 73yo Myocardial infarction Mother , in her 80s Breast cancer Myocardial infarction Brother Natural with unknown cause Brother Natural with unknown cause Brother No problems noted. Brother No problems noted. Sister Breast cancer Sister No problems noted. Sister No problems noted. Sister No problems noted. Son No problems noted. Daughter No problems noted. Daughter No problems noted. Daughter No problems noted. 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 Feels Safe at Home: Yes caffeine: No during the past year weight has: remained stable Assistive Devices: None Review of Systems Review of Systems: Unobtainable due to mental health condition Physical Exam Physical Exam: limited exam restless/agitated tachycardic Results & Data ([facility]) Vital Signs (Past 12 Hours) Vital Signs Temp Pulse Pulse Resp BP BP Pulse Ox 12/09/22 06:00 129 H 12/09/22 09:51 155 H 100/86 12/09/22 08:12 36.3 C L 117 H 18 110/73 91 12/09/22 03:43 36.7 C 116 H 14 90/56 L 100 12/09/22 02:43 36.7 C 105 H 14 94/54 L 100 12/09/22 01:45 36.6 C 101 H 14 92/46 L 100 12/08/22 23:35 123 H 12/09/22 01:10 36.3 C L 88 14 92/46 L 100 12/09/22 01:05 36.7 C 64 14 109/65 94 12/09/22 00:50 36.7 C 64 14 101/70 94 12/09/22 00:40 36.7 C 64 14 94/49 L 94 12/09/22 00:42 36.7 C 64 19 101/66 94 12/08/22 23:29 12/08/22 23:29 37.2 C 64 16 89/59 L 94 12/08/22 23:29 Pulse Ox O2 Del Method O2 Del Method O2 Flow Rate O2 Flow Rate 12/09/22 06:00 12/09/22 09:51 12/09/22 08:12 Nasal Cannula 2 12/09/22 03:43 12/09/22 02:43 12/09/22 01:45 0 12/08/22 23:35 12/09/22 01:10 2 12/09/22 01:05 2 12/09/22 00:50 2 12/09/22 00:40 2 12/09/22 00:42 2 12/08/22 23:29 Nasal Cannula 2 12/08/22 23:29 Nasal Cannula 2 12/08/22 23:29 94 Nasal Cannula 2 Laboratory Results covid, flu++ Diagnostic Findings Admitting CXR: 1. No significant change compared to the prior study. 2. Emphysema with chronic interstitial thickening again noted at the lung bases. 3. Trace bilateral pleural effusions persist. 4. Gastric pull-through with stent, unchanged. PG Care Time/CCT Total # of Minutes Spent Total Time Spent: 44 Total Time Spent with Patient: Total time spent is greater than 50% in coordination of care (as documented) at patient's floor/unit and/or counseling patient: Prolonged Care Time Prolonged Care Time: No Coding Level of Care Code New Pt INP/OBS CONSULT LVL 3, 45 MIN Patient Type New Medical Decision Making Moderate Complexity Diagnoses Palliative care encounter Z51.5 Advanced care planning/counseling discussion Z71.89 Weakness generalized R53.1 Altered mental status R41.82 Dyspnea and respiratory abnormalities R06.00; R06.89 Nausea & vomiting R11.2 Esophageal carcinoma C15.9
--- NOTE | 2022-12-09 11:44 | Electrocardiogram Report ---
Test Reason : Blood Pressure : / mmHG Vent. Rate : 142 BPM Atrial Rate : 147 BPM P-R Int : 000 ms QRS Dur : 088 ms QT Int : 276 ms P-R-T Axes : 000 137 -55 degrees QTc Int : 424 ms Poor data quality, interpretation may be adversely affected Atrial fibrillation with rapid ventricular response Right axis deviation Low voltage QRS Diffuse Nonspecific ST and T wave abnormality Abnormal ECG When compared with ECG of 08-DEC-2022 14:54, Atrial fibrillation has replaced Sinus rhythm HR has increased by 45 bpm Confirmed by Fernando Avelar ([id number]) on 12/09/2022 11:44:25 AM Referred By: REFERRED SELF Confirmed By:Fernando Avelar
--- NOTE | 2022-12-09 12:22 | Gastrointestinal Consultation ---
Date of Consultation December 09, 2022 Assessment & Plan (1) Esophageal carcinoma: (2) Flu: (3) COVID: Patient is a 72 years old female with complicated cardiovascular disease as noted in HPI above, notably CAD status post CABG with stent placements, atrial fibrillation currently not anticoagulated, esophageal cancer with obstructing tumor status post esophageal stent placement who presented yesterday with weakness. On evaluation found to be pancytopenic, anemic status post PRBC transfusion. She was also found to be positive for COVID-19 and flu A, receiving remdesivir and Tamiflu respectively. On HPI it was mentioned that there was a questionable history of patient vomiting blood but this was never able to be confirmed with her . She does not appear to have gross GI bleeding today including no nausea or vomiting, is having liquid brown stools. In light of her acute medical issues and other comorbidities, we will defer inpatient endoscopic procedures unless she is more stabilized and if there are any active symptoms of gross GI bleeding. Monitor blood count and transfuse as needed. Would continue PPI IV twice daily for coverage. Consider palliative care consult. Please recall GI. History of Present Illness Reason for Consultation: Esophageal ca, anemia, GI bleeding Requesting Physician: Dr. Thomas Connolly Attending Physician: Dr. Vincent Mcdaniels History of Present Illness Patient is a poor historian, unable to provide much history. History of present illness information obtained from chart review: Patient is a 72 years old female with past medical history including CAD status post CABG, with stent placement, PVD, TIA, HTN, HLD, Williamson's esophagus, A. fib, esophageal cancer s/p esophageal stent placement on 11/06/2022. Given high risk for bleeding due to her esophageal cancer, she is currently not anticoagulated (was on Eliquis). She presented with weakness yesterday. Upon evaluation she was noted to be anemic with hemoglobin of 7 status post 2 units PRBC transfusion. She is in fact noted to be pancytopenic. She had last chemotherapy session about 1 week ago. She is found to be COVID and flu positive, currently receiving Remdisivir and Tamiflu. O2 sat 91% on 2L NC. On my examination her abdomen is soft on palpation, no signs of distress from patient on palpation, she had a liquid brown stool in her bed. Allergies Allergy/AdvReac Type Severity Reaction Status Date / Time sumatriptan AdvReac Unknown advised to Verified 12/08/22 18:58 avoid d/t hx heart surgery varenicline AdvReac Unknown advised to Verified 12/08/22 18:58 avoid d/t hx heart surgery Home Medications Medication Instructions Recorded Confirmed Type atorvastatin 80 mg tablet 80 mg PO HS 03/22/19 12/08/22 History trazodone 150 mg tablet 150 mg PO HS 03/22/19 12/08/22 History acetaminophen 500 mg tablet 500 mg PO Q4 PRN Pain 10/29/22 12/08/22 History (Tylenol Extra Strength) albuterol sulfate 2.5 mg/3 mL 2.5 mg inhalation Q4H PRN 10/29/22 12/08/22 History (0.083 %) solution for nebulization Abdominal Discomfort fluticasone propionate 220 2 puff inhalation BID PRN as 10/29/22 12/08/22 History mcg/actuation HFA aerosol inhaler directed (Flovent HFA) mecobalamin (vitamin B12) 1,000 1,000 mcg PO DAILY 10/29/22 12/08/22 History mcg lozenges ropinirole 0.25 mg tablet 0.5 mg PO HS 10/29/22 12/08/22 History tiotropium bromide 18 mcg capsule 1 cap inhalation DAILY PRN as 10/29/22 12/08/22 History with inhalation device (Spiriva directed with HandiHaler) aspirin 81 mg chewable tablet 81 mg PO DAILY 10/30/22 12/08/22 History cholecalciferol (vitamin D3) 25 25 mcg PO DAILY 10/30/22 12/08/22 History mcg (1,000 unit) capsule albuterol sulfate 90 mcg/actuation 2 puff inhalation Q4 PRN Wheezing 10/31/22 12/08/22 History aerosol inhaler magnesium oxide 400 mg PO DAILY 10/31/22 12/08/22 History metoprolol succinate 50 mg 50 mg PO DAILY 10/31/22 12/08/22 History tablet,extended release 24 hr lorazepam 0.5 mg tablet 0.5 mg PO Q6H PRN Anxiety 12/03/22 12/08/22 History omeprazole 40 mg capsule,delayed 40 mg PO DAILY 12/03/22 12/08/22 History release prochlorperazine maleate 10 mg 10 mg PO Q6H PRN NAUSEA/VOMITING 12/03/22 12/08/22 History tablet (Compazine) dexamethasone 4 mg tablet See Rx Instructions .Route .COMPLEX 12/08/22 12/08/22 History ondansetron HCl 8 mg tablet 8 mg PO Q8H PRN NAUSEA/VOMITING 12/08/22 12/08/22 History pantoprazole 40 mg tablet,delayed 40 mg PO DAILY 12/08/22 12/08/22 History release (Protonix) Patient History Medical History (Updated 12/09/22 @ 12:27 by JC Baca) Altered mental status Anxiety Barretts esophagus Chronic obstructive pulmonary disease CKD (chronic kidney disease), stage III Coronary artery disease CABG x 2 (2009) cardiac stent x 1 (2014 - LCx) Degenerative disc disease Depression Esophageal cancer Ganglion cyst Surgery on both wrists for this GERD (gastroesophageal reflux disease) controlled Hyperlipidemia Hypertension Learning disability cannot spell/limited reading skills Migraine "haven't had one in awhile" Myocardial Infarction "silent" [place]- remote/several years ago Osteoarthritis PAD (peripheral artery disease) <50% aorta-iliac system stenosis per 09/26/19 duplex Paroxysmal atrial fibrillation Peripheral neuropathy LLE Port-A-Cath in place PVD (peripheral vascular disease) Stroke "silent" stroke noted incidentally on imaging several years ago, no residual issues Surgical History Fusion of spine LUMBAR ACDF C5-C7: 10/30/17: Grade view 1, MAC#3, ETT 7.0 at [facility] H/O esophagogastroduodenoscopy H/O shoulder surgery Left H/O sinus surgery History of bilateral tubal ligation History of cardiac cath CABG x 2 (2009); [place]; f/u dr kemp, [place] cardiac stent x 1 (2014 - LCx); [facility] History of carpal tunnel surgery History of cholecystectomy History of colonoscopy History of esophagogastroduodenoscopy (EGD) History of Lauren fundoplication History of surgery Reconstruction of pyloris History of surgery Paraesophageal hernia repair with mesh in 2017 History of tonsillectomy History of tooth extraction History of total abdominal hysterectomy and bilateral salpingo-oophorectomy History of total hip arthroplasty LEFT History of total knee replacement RT/LEFT Removal of knee prosthesis S/P CABG (coronary artery bypass graft) Family History Father , 73yo Myocardial infarction Mother , in her 80s Breast cancer Myocardial infarction Brother Natural with unknown cause Brother Natural with unknown cause Brother No problems noted. Brother No problems noted. Sister Breast cancer Sister No problems noted. Sister No problems noted. Sister No problems noted. Son No problems noted. Daughter No problems noted. Daughter No problems noted. Daughter No problems noted. 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 Feels Safe at Home: Yes caffeine: No during the past year weight has: remained stable Assistive Devices: None Review of Systems Review of Systems: All systems reviewed & are unremarkable except as noted in HPI & below Physical Exam Constitutional: Thin, unable to provide me much history or hold conversation Eyes: PERRL, conjunctivae normal, anicteric sclerae ENMT: external ear and nose normal, oropharynx normal Respiratory: Diminished overall, + accessory muscles used for breathing Cardiovascular: Irregular, no murmur; RN in room completed EKG: Afib w RVR Gastrointestinal (Abdomen): Soft, no guarding, BS hypoactive. Liquid brown stool Skin: no rashes, warm and dry no jaundice Neurologic: Alert, unable to answer much questions Lymphatic: no lymphedema Results & Data ([facility]) Vital Signs (Past 12 Hours) Vital Signs Temp Pulse Pulse Resp BP BP Pulse Ox 12/09/22 06:00 129 H 12/09/22 09:51 155 H 100/86 12/09/22 08:12 36.3 C L 117 H 18 110/73 91 12/09/22 03:43 36.7 C 116 H 14 90/56 L 100 12/09/22 02:43 36.7 C 105 H 14 94/54 L 100 12/09/22 01:45 36.6 C 101 H 14 92/46 L 100 12/09/22 01:10 36.3 C L 88 14 92/46 L 100 12/09/22 01:05 36.7 C 64 14 109/65 94 12/09/22 00:50 36.7 C 64 14 101/70 94 12/09/22 00:40 36.7 C 64 14 94/49 L 94 12/09/22 00:42 36.7 C 64 19 101/66 94 O2 Del Method O2 Flow Rate 12/09/22 06:00 12/09/22 09:51 12/09/22 08:12 Nasal Cannula 2 12/09/22 03:43 12/09/22 02:43 12/09/22 01:45 0 12/09/22 01:10 2 12/09/22 01:05 2 12/09/22 00:50 2 12/09/22 00:40 2 12/09/22 00:42 2
[2022-12-09 12:30] LABS: Hematocrit (blood only) 31.4 % (34.1-44.9); Hemoglobin 10.7 g/dl (12.0-16.0)
[2022-12-09] MEDS ORDERED: VANCOMYCIN CONSULT ACTIVE PRN (15:35)
[2022-12-09] MEDS ORDERED: VANCOMYCIN HCL 1,250 MG in SODIUM CHLORIDE 0.9% 500 ML IV ONE (15:35)
--- NOTE | 2022-12-09 15:37 | Hospitalist Progress Note ---
Date of Service December 09, 2022 Assessment & Plan (1) COVID-19 virus infection: (2) Influenza A: (3) Esophageal cancer: (4) Nausea & vomiting: (5) Pancytopenia: (6) Atrial fibrillation with RVR: Plan Patient is a 72-year-old female with recent diagnosis of esophageal carcinoma of lower third of esophagus diagnosed in August 2022. She underwent endoscopic ultrasound on November 04 which showed distal esophageal circumferential malignancy, stage III, N0 MX by endosonographic criteria. She also had EGD done on 11/06/2022 showing obstructing malignant esophageal tumor in the lower third of the esophagus. Esophageal stent placed. She received C1 D1 carbo/Taxol with radiation on December 02, 2022 by oncology as outpatient. Patient presented with complaint of hematemesis, nausea and decreased appetite. In the ED, patient was hypotensive, afebrile and saturating well on room air. She was found to be pancytopenic with hemoglobin around 7; received 2 units of blood. She was also found to have COVID-19 infection and influenza A positive. Patient was admitted to telemetry for further care. Suspected upper GI bleed Acute blood loss anemia status post 2 units of packed RBC Chemotherapy-induced pancytopenia COVID-19 infection Influenza A A. fib with RVR Poorly differentiated adenocarcinoma of esophagus; status post stent. Currently on chemo/radiation. Hypotensive; saturating well in room air. In and out of A. fib with RVR WBC of 1.39, hemoglobin of 10.7. Platelet 112 COVID-19 positive Influenza A positive Chest x-rayno infiltrates Plan; GI consulted for upper GI bleed; recommend IV Protonix twice daily. No inpatient endoscopic procedure until patient is more stabilized or if there is any symptoms of gross GI bleed. Cardiology consulted for A. fib with RVR; currently on amiodarone. Metoprolol 50 mg twice daily resumed; patient converted to sinus. No anticoagulation given history of GI bleed. Last echo was done in October 31 which showed EF of 60 to 65% with grade 2 diastolic dysfunction. On Tamiflu for influenza A On remdesivir for COVID-19 infection. Dexamethasone not given due to suspected upper GI bleed Started on empiric cefepime and vancomycin for suspected sepsis. We will follow-up on blood culture. Other conditions; CAD status post CABGholding aspirin, continue statin and beta-yair with holding parameters of Hyperlipidemiacontinue statin Goals of care discussion was done with her ( and surrogate decision maker) and her sister Shelby ( Contact [phone]) at bedside. They acknowledge patient's critical condition due to various comorbidities. They want to continue medical care for now.. If there is any further decompensation; they would like to make sure patient is comfortable and initiate comfort measures. CODE STATUS discussed; changed to DNR/DNI as per discussion. Her Sister Shelby would like to be contacted if patient's condition were to be deteriorated further DVT prophylaxis SCDs DNR/DNI Admission and Anticipated Discharge Date Admission Date: December 08, 2022 Subjective Patient seen and examined at bedside. Patient is lethargic; awakens her eyes to verbal stimuli. Unable to provide any other information. EKG done in a.m. showed A. fib with RVR. Her ventricular rate varied in the range of 130s; converted later to sinus rhythm. Review of Systems Review of Systems: Unobtainable due to reduced consciousness Physical Exam Physical Exam: Constitutional: Lethargic; awakens to verbal stimuli. Follows simple commands. Respiratory: Bilateral clear vesicular breath sound Cardiovascular: Irregular, no murmur, no edema Vessels: no JVD or carotid bruit Chest: normal inspection of chest Abdomen: normal bowel sounds, soft, nontender, no hepatosplenomegaly Musculoskeletal: no cyanosis or clubbing, Skin: no rashes, warm and dry normal turgor Neurologic: Lethargic; follows simple commands. non-focal Psychiatric: Lethargic, awakens to verbal stimuli. Lymphatic: no cervical or axillary lymphadenopathy : deferred Results & Data Results & Data ([facility]) Vital Signs (Past 12 Hours) Vital Signs Temp Pulse Pulse Resp BP BP Pulse Ox 12/09/22 08:08 12/09/22 12:21 37.3 C 92 H 20 98/60 L 97 12/09/22 06:00 129 H 12/09/22 09:51 155 H 100/86 12/09/22 08:12 36.3 C L 117 H 18 110/73 91 12/09/22 03:43 36.7 C 116 H 14 90/56 L 100 O2 Del Method O2 Flow Rate 12/09/22 08:08 Nasal Cannula 2 12/09/22 12:21 Nasal Cannula 3 12/09/22 06:00 12/09/22 09:51 12/09/22 08:12 Nasal Cannula 2 12/09/22 03:43 Laboratory Results Laboratory Results WBC 1.39 K/ul (4.8-10.8) L 12/09/22 05:36 RBC 3.63 M/uL (3.93-5.22) L 12/09/22 05:36 Hgb 10.7 g/dl (12.0-16.0) L 12/09/22 11:34 Hct 31.4 % (34.1-44.9) L 12/09/22 11:34 MCV 81.3 fL (80.0-100.0) 12/09/22 05:36 MCH 28.1 pg (25.0-34.0) 12/09/22 05:36 MCHC 34.6 g/dL (32.0-36.0) 12/09/22 05:36 RDW Std Deviation 43.5 fL (36.4-46.3) 12/09/22 05:36 RDW Coeff of Cassi 14.8 % (11.5-14.5) H 12/09/22 05:36 Plt Count 112 K/uL (130-400) L 12/09/22 05:36 MPV 12.7 fL (9.4-12.3) H 12/09/22 05:36 Immature Gran % (Auto) 1.4 % 12/09/22 05:36 Neut % (Auto) 73.4 % 12/09/22 05:36 Lymph % (Auto) 13.7 % 12/09/22 05:36 [place] % (Auto) 10.1 % 12/09/22 05:36 Eos % (Auto) 0.0 % 12/09/22 05:36 Baso % (Auto) 1.4 % 12/09/22 05:36 Neut # (Auto) 1.02 K/uL (1.4-6.5) L 12/09/22 05:36 Lymph # (Auto) 0.19 K/uL (1.2-3.4) L 12/09/22 05:36 Independence # (Auto) 0.14 K/uL (0.24-0.82) L 12/09/22 05:36 Eos # (Auto) 0.00 K/uL (0-0.50) 12/09/22 05:36 Baso # (Auto) 0.02 K/uL (0-0.2) 12/09/22 05:36 Immature Gran # (Auto) 0.02 K/uL (0.00-0.02) 12/09/22 05:36 Toxic Granulation 1+ 12/08/22 15:11 Echinocytes 1+ 12/09/22 05:36 Acanthocytes (Spur) 1+ 12/09/22 05:36 PT 12.9 Seconds (9.0-12.0) H 12/08/22 15:11 INR 1.2 (0.9-1.1) H 12/08/22 15:11 APTT 36.2 Seconds (21.0-31.0) H 12/08/22 15:11 PTT Ratio 1.3 12/08/22 15:11 Sodium 132 mmol/L (136-145) L 12/09/22 05:36 Potassium 3.0 mmol/L (3.5-5.1) L 12/09/22 05:36 Chloride 97 mmol/L (98-107) L 12/09/22 05:36 Carbon Dioxide 27 mmol/L (21-32) 12/09/22 05:36 Anion Gap 8 (3-11) 12/09/22 05:36 BUN 14 mg/dl (6-23) 12/09/22 05:36 Creatinine 0.39 mg/dl (0.6-1.2) L 12/09/22 05:36 Est Cr Clr Drug Dosing 121.7 ml/min 12/09/22 05:36 Est GFR ( Amer) 121.6 ml/min 12/09/22 05:36 Est GFR (Non-Af Amer) 104.9 ml/min 12/09/22 05:36 BUN/Creatinine Ratio 35.9 (10-20) H 12/09/22 05:36 Glucose 110 mg/dl (70-99(Fasting)) H 12/09/22 05:36 Estimat Average Glucose 137 mg/dl 12/09/22 05:36 Hemoglobin A1c 6.4 % (4.5-5.6) H 12/09/22 05:36 Calcium 6.6 mg/dl (8.5-10.1) L 12/09/22 05:36 Magnesium 1.6 mg/dl (1.7-2.4) L 12/09/22 05:36 Total Bilirubin 1.1 mg/dl (0.2-1.0) H 12/08/22 15:11 AST 15 U/L (13-39) 12/08/22 15:11 ALT 12 U/L (7-52) 12/08/22 15:11 Alkaline Phosphatase 64 U/L (34-104) 12/08/22 15:11 Troponin I High Sens 14.6 pg/ml (0-14) H 12/09/22 11:34 Total Protein 4.6 gm/dl (6.0-8.3) L 12/08/22 15:11 Albumin 2.1 gm/dl (3.4-5.0) L 12/08/22 15:11 Globulin 2.5 gm/dl (2.5-4.0) 12/08/22 15:11 Albumin/Globulin Ratio 0.8 (0.9-2) L 12/08/22 15:11 SARS-CoV-2 (PCR) POSITIVE (Negative) A* 12/08/22 15:25 Influenza Type A (PCR) Positive (Neg) A* 12/08/22 15:25 Influenza Type B (PCR) Negative (Neg) 12/08/22 15:25 RSV (RT-PCR) Negative (Neg) 12/08/22 15:25 Blood Type O Positive 12/08/22 16:52 Antibody Screen NEGATIVE 12/08/22 16:52 Crossmatch See Detail 12/08/22 16:52 Impressions Chest X-Ray 12/08/22 15:38 XR chest 1V portable HISTORY: Chest pain, nonspecific COMPARISON: Chest 11/07/2019. FINDINGS: No pneumothorax. Trace bilateral pleural effusions remain unchanged. Interstitial thickening within the lung bases and a linear scarlike density within the right lower lobe persist. There are post sternotomy changes. Right Port-A-Cath terminates in the distal SVC. Cervical spinal fusion hardware. Gastric pull-through with an associated stent again noted. IMPRESSION: 1. No significant change compared to the prior study. 2. Emphysema with chronic interstitial thickening again noted at the lung bases. 3. Trace bilateral pleural effusions persist. 4. Gastric pull-through with stent, unchanged. ACT 112: Negative or not required by law. Electronically signed by: John Jones M.D. 12/08/2022 3:49 PM
[2022-12-09] MEDS ORDERED: VANCOMYCIN HCL 1,500 MG in SODIUM CHLORIDE 0.9% 500 ML IV ONE (16:00)
[2022-12-09] MEDS: CEFEPIME 2,000 MG in SYRINGE 0 ML IV SCH (17:07)
[2022-12-09 17:13] LABS: Hematocrit (blood only) 30.4 % (34.1-44.9); Hemoglobin 10.5 g/dl (12.0-16.0)
--- NOTE | 2022-12-09 17:45 | Cardiology Consultation ---
Date of Consultation December 09, 2022 History of Present Illness Reason for Consultation: Paroxysmal atrial fibrillation Requesting Physician: Dr. Connolly Attending Physician: Thomas Connolly MD Allergies Allergy/AdvReac Type Severity Reaction Status Date / Time sumatriptan AdvReac Unknown advised to Verified 12/08/22 18:58 avoid d/t hx heart surgery varenicline AdvReac Unknown advised to Verified 12/08/22 18:58 avoid d/t hx heart surgery Home Medications Medication Instructions Recorded Confirmed Type atorvastatin 80 mg tablet 80 mg PO HS 03/22/19 12/08/22 History trazodone 150 mg tablet 150 mg PO HS 03/22/19 12/08/22 History acetaminophen 500 mg tablet 500 mg PO Q4 PRN Pain 10/29/22 12/08/22 History (Tylenol Extra Strength) albuterol sulfate 2.5 mg/3 mL 2.5 mg inhalation Q4H PRN 10/29/22 12/08/22 History (0.083 %) solution for nebulization Abdominal Discomfort fluticasone propionate 220 2 puff inhalation BID PRN as 10/29/22 12/08/22 History mcg/actuation HFA aerosol inhaler directed (Flovent HFA) mecobalamin (vitamin B12) 1,000 1,000 mcg PO DAILY 10/29/22 12/08/22 History mcg lozenges ropinirole 0.25 mg tablet 0.5 mg PO HS 10/29/22 12/08/22 History tiotropium bromide 18 mcg capsule 1 cap inhalation DAILY PRN as 10/29/22 12/08/22 History with inhalation device (Spiriva directed with HandiHaler) aspirin 81 mg chewable tablet 81 mg PO DAILY 10/30/22 12/08/22 History cholecalciferol (vitamin D3) 25 25 mcg PO DAILY 10/30/22 12/08/22 History mcg (1,000 unit) capsule albuterol sulfate 90 mcg/actuation 2 puff inhalation Q4 PRN Wheezing 10/31/22 12/08/22 History aerosol inhaler magnesium oxide 400 mg PO DAILY 10/31/22 12/08/22 History metoprolol succinate 50 mg 50 mg PO DAILY 10/31/22 12/08/22 History tablet,extended release 24 hr lorazepam 0.5 mg tablet 0.5 mg PO Q6H PRN Anxiety 12/03/22 12/08/22 History omeprazole 40 mg capsule,delayed 40 mg PO DAILY 12/03/22 12/08/22 History release prochlorperazine maleate 10 mg 10 mg PO Q6H PRN NAUSEA/VOMITING 12/03/22 12/08/22 History tablet (Compazine) dexamethasone 4 mg tablet See Rx Instructions .Route .COMPLEX 12/08/22 12/08/22 History ondansetron HCl 8 mg tablet 8 mg PO Q8H PRN NAUSEA/VOMITING 12/08/22 12/08/22 History pantoprazole 40 mg tablet,delayed 40 mg PO DAILY 12/08/22 12/08/22 History release (Protonix) Patient History Medical History (Updated 12/09/22 @ 15:45 by Thomas Connolly MD) Altered mental status Anxiety Barretts esophagus Chronic obstructive pulmonary disease CKD (chronic kidney disease), stage III Coronary artery disease CABG x 2 (2009) cardiac stent x 1 (2014 - LCx) Degenerative disc disease Depression Esophageal cancer Ganglion cyst Surgery on both wrists for this GERD (gastroesophageal reflux disease) controlled Hyperlipidemia Hypertension Learning disability cannot spell/limited reading skills Migraine "haven't had one in awhile" Myocardial Infarction "silent" [place]- remote/several years ago Osteoarthritis PAD (peripheral artery disease) <50% aorta-iliac system stenosis per 09/26/19 duplex Paroxysmal atrial fibrillation Peripheral neuropathy LLE Port-A-Cath in place PVD (peripheral vascular disease) Stroke "silent" stroke noted incidentally on imaging several years ago, no residual issues Surgical History Fusion of spine LUMBAR ACDF C5-C7: 10/30/17: Grade view 1, MAC#3, ETT 7.0 at [facility] H/O esophagogastroduodenoscopy H/O shoulder surgery Left H/O sinus surgery History of bilateral tubal ligation History of cardiac cath CABG x 2 (2009); [place]; f/u dr kemp, [place] cardiac stent x 1 (2014 - LCx); [facility] History of carpal tunnel surgery History of cholecystectomy History of colonoscopy History of esophagogastroduodenoscopy (EGD) History of Lauren fundoplication History of surgery Reconstruction of pyloris History of surgery Paraesophageal hernia repair with mesh in 2017 History of tonsillectomy History of tooth extraction History of total abdominal hysterectomy and bilateral salpingo-oophorectomy History of total hip arthroplasty LEFT History of total knee replacement RT/LEFT Removal of knee prosthesis S/P CABG (coronary artery bypass graft) Family History Father , 73yo Myocardial infarction Mother , in her 80s Breast cancer Myocardial infarction Brother Natural with unknown cause Brother Natural with unknown cause Brother No problems noted. Brother No problems noted. Sister Breast cancer Sister No problems noted. Sister No problems noted. Sister No problems noted. Son No problems noted. Daughter No problems noted. Daughter No problems noted. Daughter No problems noted. 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 Safe at Home: Yes caffeine: No during the past year weight has: remained stable Assistive Devices: None Results & Data ([facility]) Vital Signs (Past 12 Hours) Vital Signs Temp Pulse Pulse Resp BP Pulse Ox O2 Del Method 12/09/22 14:12 89 12/09/22 15:36 36.5 C 90 20 95/60 L 99 Room Air 12/09/22 08:08 Nasal Cannula 12/09/22 12:21 37.3 C 92 H 20 98/60 L 97 Nasal Cannula 12/09/22 06:00 129 H 12/09/22 09:51 155 H 100/86 12/09/22 08:12 36.3 C L 117 H 18 110/73 91 Nasal Cannula O2 Flow Rate 12/09/22 14:12 12/09/22 15:36 12/09/22 08:08 2 12/09/22 12:21 3 12/09/22 06:00 12/09/22 09:51 12/09/22 08:12 2
--- NOTE | 2022-12-09 17:51 | Communication Note ---
Date of Service: December 09, 2022 Patient is a 72-year-old female with complex history. She is followed by [facility] physician cardiology group for underlying ischemic heart disease and paroxysmal f fibrillation. Current issues were obstructing esophageal carcinoma Last hospitalization in October 2022 Currently undergoing treatment for esophageal carcinoma. She presents now with nausea weakness and malaise. Found to be COVID and influenza A positive. Lapsed into atrial fibrillation on hospitalization. Patient treated with IV amiodarone last evening with spontaneous conversion to sinus rhythm. Palliative care now involved Recommendations: Continue IV amiodarone then switch to oral amiodarone at prior dosing at last hospitalization. EKG in a.m. If further intervention or therapy is warranted would consult primary cardiology group
--- NOTE | 2022-12-09 17:52 | Pharmacy Report ---
Pharmacy PK ABX Note - Date of Service December 09, 2022 - Assessment and Plan Assessment 72 year old F with esophageal cancer on chemotherapy receiving vancomycin and cefepime empirically in setting of pancytopenia and sepsis. COVID (+), influenza A (+). Renal function stable. Also receiving remdesivir and oseltamivir. Day #1 of antimicrobial therapy. Plan Vancomycin * Loading dose: 1500 mg IV x 1 * Maintenance dose: 1250 mg IV every 12 hours * Regimen is predicted to achieve target AUC/JAIME of 400-600 mg/L.hr * Level will be obtained around steady state, or sooner if clinically indicated Pharmacy will continue to follow and will adjust dose/frequency as necessary. Thank you. Pharmacy has transitioned to AUC monitoring for vancomycin. AUC/JAIME is the preferred PK/PD target and is associated with decreased risk of nephrotoxicity c ompared to traditional trough targets.
[2022-12-09] MEDS ORDERED: ATORVASTATIN 40 MG TAB PO SCH (21:00)
[2022-12-09] MEDS ORDERED: rOPINIRole HCL 0.25 MG TABLET PO SCH (21:00)
[2022-12-09] MEDS ORDERED: traZODone HCL 50 MG TAB PO SCH (21:00)
[2022-12-09] MEDS: PANTOprazole 40 MG in SYRINGE 0 ML IV SCH (21:55)
[2022-12-09] MEDS ORDERED: CEFEPIME 1,000 MG in SYRINGE 0 ML IV SCH (22:00)
[2022-12-10] MEDS: VANCOMYCIN HCL 1,250 MG in SODIUM CHLORIDE 0.9% 250 ML IV SCH ×2 (00:46→14:18)
[2022-12-10] MEDS: CEFEPIME 2,000 MG in SYRINGE 0 ML IV SCH ×3 (00:46→14:18)
[2022-12-10] MEDS: SODIUM CHLORIDE 0.9% 1000ML 1,000 ML IV SCH (05:02)
[2022-12-10 06:51] LABS: Basophils # (auto) 0.02 K/uL (0-0.2); Echinocytes 2+; Giant Platelets 1+; Hematocrit (blood only) 30.3 % (34.1-44.9); Immature Granulocytes # (auto) 0.09 K/uL (0.00-0.02); Immature Granulocytes % (auto) 4.7 %; Lymphocytes % (auto) 10.4 %; Mean Corpuscular Hemoglobin 27.4 pg (25.0-34.0); Monocytes % (auto) 15.6 %; Neutrophils # (auto) 1.31 K/uL (1.4-6.5); Neutrophils % (auto) 68.3 %; Nucleated RBC # (auto) 0.03 K/uL (0-0); Nucleated RBC % (auto) 1.6 %; Platelet Count 101 K/uL (130-400); RDW Coefficient of Variation 14.6 % (11.5-14.5); RDW Standard Deviation 44.2 fL (36.4-46.3); Red Blood Count 3.65 M/uL (3.93-5.22); White Blood Count 1.92 K/ul (4.8-10.8)
[2022-12-10 06:56] LABS: Albumin Globulin Ratio 0.8 (0.9-2); Albumin Level 1.8 gm/dl (3.4-5.0); Bilirubin,Total 1.2 mg/dl (0.2-1.0); Creatinine Clr Calc Pharmacy 183.2 ml/min; Est GFR (African American) 120.6 ml/min; Est GFR (Non-African American) 104.1 ml/min; Globulin 2.2 gm/dl (2.5-4.0); Potassium 3.9 mmol/L (3.5-5.1)
[2022-12-10] MEDS: PANTOprazole 40 MG in DEXTROSE 5% 100 ML IV SCH (07:48)
[2022-12-10] MEDS: PANTOprazole 40 MG in SYRINGE 0 ML IV SCH (10:22)
[2022-12-10] MEDS: CYANOCOBALAMIN (B-12) 500 MCG TABLET PO SCH (10:23)
[2022-12-10] MEDS: AMIODARONE 200 MG TAB PO SCH (10:23)
[2022-12-10] MEDS: CHOLECALCIFEROL 1,000 UNITS 25 MCG TAB PO SCH (10:23)
[2022-12-10] MEDS: METOPROLOL TARTRATE 50 MG TAB PO SCH (10:24)
[2022-12-10] MEDS: MAGNESIUM OXIDE 400 MG TAB PO SCH (10:24)
[2022-12-10] MEDS: OSELTAMIVIR PHOSPHATE 75 MG CAP PO SCH (10:24)
[2022-12-10] MEDS ORDERED: REMDESIVIR 100 MG in SODIUM CHLORIDE 0.9% 230 ML IV SCH (12:00)
--- NOTE | 2022-12-10 15:01 | Communication Note ---
Date of Service: December 10, 2022 Pt declining. Family desire comfort care, additional family have visited for final goodbyes. and sister remain at bedside, they do not want dying prolonged and do not want meds but those for comfort to be continued/ordered. Comfort measures ordered, non comfort meds and interventions such as labs and telemetry have been stopped. Short anticipated survival. I have d/w nursing. TS 23min Jade Moore DNP Clinical Director, Palliative Medicine.
--- NOTE | 2022-12-10 17:14 | Hospitalist Progress Note ---
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 She underwent endoscopic ultrasound on November 04 which showed distal esophageal circumferential malignancy, stage III, N0 MX by endosonographic criteria. She also had EGD done on 11/06/2022 showing obstructing malignant esophageal tumor in the lower third of the esophagus. Esophageal stent placed. She received C1 D1 carbo/Taxol with radiation on December 02, 2022 by oncology as outpatient. Patient presented with complaint of hematemesis, nausea and decreased appetite. In the ED, patient was hypotensive, afebrile and saturating well on room air. She was found to be pancytopenic with hemoglobin around 7; received 2 units of blood. She was also found to have COVID-19 infection and influenza A positive. Patient was admitted to telemetry for further care. Suspected upper GI bleed Likely due to esophageal adenocarcinoma Acute blood loss anemia Chemotherapy-induced pancytopenia COVID-19 infection Influenza A A. fib with RVR Poorly differentiated adenocarcinoma of esophagus Coronary artery disease S/P CABG Hyperlipidemia Appreciate palliative medicine input Currently on comfort measures only Patient/family understands and agrees with current management Code Status DNR/DNI Admission and Anticipated Discharge Date Admission Date: December 08, 2022 Subjective Patient is seen and examined at bedside Poor historian Denies chest pain, dyspnea Lethargic mostly Discussed with patient's family at bedside Transition to comfort measures only Review of Systems Review of Systems: Other Physical Exam Physical Exam: Physical Exam: Vitals signs as noted above General Appearance: Elderly, chronically appearing, no apparent distress Head: normocephalic, Atraumatic Eyes: normal inspection, EOMI Neck: supple, Trachea midline Respiratory/Chest: Decreased breath sounds, CTA, No accessory muscle use Cardiovascular: S1, S2, tachycardic, no murmur Abdomen/GI:Soft, Non tender, Bowel sounds present Extremities/Musculoskeletal:normal inspection, no edema Neurologic/Psych:AAOX1, grossly no focal neurological deficits Skin: normal color, warm Results & Data Results & Data ([facility]) Vital Signs (Past 12 Hours) Vital Signs Temp Pulse Resp BP Pulse Ox O2 Del Method O2 Flow Rate 12/10/22 08:00 Nasal Cannula 2 12/10/22 08:33 36.9 C 120 H 20 102/67 91 Nasal Cannula Laboratory Results Short CBC 12/09/22 12/10/22 Range/Units 16:37 05:54 WBC 1.92 L (4.8-10.8) K/ul Hgb 10.5 L 10.0 L (12.0-16.0) g/dl Hct 30.4 L 30.3 L (34.1-44.9) % Plt Count 101 L (130-400) K/uL BMP 12/10/22 05:54 Sodium 131 L Potassium 3.9 D Chloride 101 Carbon Dioxide 21 BUN 16 Creatinine 0.40 L Glucose 100 H Calcium 7.0 L Liver Function 12/10/22 Range/Units 05:54 Total Bilirubin 1.2 H (0.2-1.0) mg/dl AST 13 (13-39) U/L ALT 11 (7-52) U/L Alkaline Phosphatase 61 (34-104) U/L Albumin 1.8 L (3.4-5.0) gm/dl
[2022-12-11] MEDS: LORazepam 2 MG/1 ML VIAL IV PRN ×3 (08:15→21:40)
[2022-12-11] MEDS: MoRPHine SULFATE 2 MG/ML CARP IV PRN ×4 (08:15→21:29)
--- NOTE | 2022-12-11 17:00 | Hospitalist Progress Note ---
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 She underwent endoscopic ultrasound on November 04 which showed distal esophageal circumferential malignancy, stage III, N0 MX by endosonographic criteria. She also had EGD done on 11/06/2022 showing obstructing malignant esophageal tumor in the lower third of the esophagus. Esophageal stent placed. She received C1 D1 carbo/Taxol with radiation on December 02, 2022 by oncology as outpatient. Patient presented with complaint of hematemesis, nausea and decreased appetite. In the ED, patient was hypotensive, afebrile and saturating well on room air. She was found to be pancytopenic with hemoglobin around 7; received 2 units of blood. She was also found to have COVID-19 infection and influenza A positive. Patient was admitted to telemetry for further care. Suspected upper GI bleed Likely due to esophageal adenocarcinoma Acute blood loss anemia Chemotherapy-induced pancytopenia COVID-19 infection Influenza A A. fib with RVR Poorly differentiated adenocarcinoma of esophagus Coronary artery disease S/P CABG Hyperlipidemia Appreciate palliative medicine input Currently on comfort measures only Patient/family understands and agrees with current management Very poor prognosis Code Status DNR/DNI Admission and Anticipated Discharge Date Admission Date: December 08, 2022 Subjective Patient is seen and examined at bedside Obtunded during my encounter No apparent distress Discussed with patient's son at bedside Currently on comfort measures only Review of Systems Review of Systems: Unobtainable due to reduced consciousness Physical Exam Physical Exam: Physical Exam: Vitals signs as noted above General Appearance: Elderly, ill appearing Head: normocephalic, Atraumatic Eyes: normal inspection, EOMI Neck: supple, Trachea midline Respiratory/Chest: Decreased breath sounds, CTA, No accessory muscle use Cardiovascular: S1, S2, tachycardic, no murmur Abdomen/GI:Soft, Non tender, Bowel sounds present Extremities/Musculoskeletal:normal inspection, no edema Neurologic/Psych:Obtunded Skin: normal color, warm Results & Data Results & Data ([facility]) Vital Signs (Past 12 Hours) Vital Signs O2 Del Method O2 Flow Rate 12/11/22 08:00 Nasal Cannula 3 12/11/22 06:15 Nasal Cannula 3
[2022-12-11] MEDS: HEPARIN 100 UNIT/ML 5ML FLUSH FLUSH PRN (21:29)
[2022-12-11] MEDS: GLYCOPYRROLATE 0.2 MG/ML VIAL IV PRN (21:40)
[2022-12-12] MEDS: LORazepam 2 MG/1 ML VIAL IV PRN (02:02)
[2022-12-12] MEDS: GLYCOPYRROLATE 0.2 MG/ML VIAL IV PRN ×4 (02:02→20:03)
[2022-12-12] MEDS: HEPARIN 100 UNIT/ML 5ML FLUSH FLUSH PRN ×5 (02:04→20:23)
[2022-12-12] MEDS: MoRPHine SULFATE 2 MG/ML CARP IV PRN ×4 (10:00→20:03)
--- NOTE | 2022-12-12 15:33 | Hospitalist Progress Note ---
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 She underwent endoscopic ultrasound on November 04 which showed distal esophageal circumferential malignancy, stage III, N0 MX by endosonographic criteria. She also had EGD done on 11/06/2022 showing obstructing malignant esophageal tumor in the lower third of the esophagus. Esophageal stent placed. She received C1 D1 carbo/Taxol with radiation on December 02, 2022 by oncology as outpatient. Patient presented with complaint of hematemesis, nausea and decreased appetite. In the ED, patient was hypotensive, afebrile and saturating well on room air. She was found to be pancytopenic with hemoglobin around 7; received 2 units of blood. She was also found to have COVID-19 infection and influenza A positive. Patient was admitted to telemetry for further care. Suspected upper GI bleed Likely due to esophageal adenocarcinoma Acute blood loss anemia Chemotherapy-induced pancytopenia COVID-19 infection Influenza A A. fib with RVR Poorly differentiated adenocarcinoma of esophagus Coronary artery disease S/P CABG Hyperlipidemia Appreciate palliative medicine input Currently on comfort measures only Patient/family understands and agrees with current management Very poor prognosis Continue current management Code Status DNR/DNI Admission and Anticipated Discharge Date Admission Date: December 08, 2022 Subjective Patient is seen and examined at bedside Obtunded Discussed with patient's family at bedside On comfort measures only Review of Systems Review of Systems: Unobtainable due to reduced consciousness Physical Exam Physical Exam: Physical Exam: Vitals signs as noted above General Appearance: Elderly, ill appearing Head: normocephalic, Atraumatic Eyes: normal inspection, EOMI Neck: supple, Trachea midline Respiratory/Chest: Decreased breath sounds, CTA, No accessory muscle use Cardiovascular: S1, S2, tachycardic, no murmur Abdomen/GI:Soft, Non tender, Bowel sounds present Extremities/Musculoskeletal:normal inspection, no edema Neurologic/Psych:Obtunded Skin: normal color, warm Results & Data Results & Data ([facility]) Vital Signs (Past 12 Hours) Vital Signs Temp Pulse Resp BP Pulse Ox O2 Del Method O2 Flow Rate 01/13/23 10:07 Nasal Cannula 2 12/12/22 09:46 37.2 C 33 L 26 H 95/59 L 88 L Nasal Cannula 2
[2022-12-13] MEDS: MoRPHine SULFATE 2 MG/ML CARP IV PRN ×5 (05:53→20:57)
[2022-12-13] MEDS: HEPARIN 100 UNIT/ML 5ML FLUSH FLUSH PRN ×6 (05:53→20:56)
[2022-12-13] MEDS: GLYCOPYRROLATE 0.2 MG/ML VIAL IV PRN ×2 (14:22→20:57)
--- NOTE | 2022-12-13 15:41 | Hospitalist Progress Note ---
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 She underwent endoscopic ultrasound on November 04 which showed distal esophageal circumferential malignancy, stage III, N0 MX by endosonographic criteria. She also had EGD done on 11/06/2022 showing obstructing malignant esophageal tumor in the lower third of the esophagus. Esophageal stent placed. She received C1 D1 carbo/Taxol with radiation on December 02, 2022 by oncology as outpatient. Patient presented with complaint of hematemesis, nausea and decreased appetite. In the ED, patient was hypotensive, afebrile and saturating well on room air. She was found to be pancytopenic with hemoglobin around 7; received 2 units of blood. She was also found to have COVID-19 infection and influenza A positive. Patient was admitted to telemetry for further care. Suspected upper GI bleed Likely due to esophageal adenocarcinoma Acute blood loss anemia Chemotherapy-induced pancytopenia COVID-19 infection Influenza A A. fib with RVR Poorly differentiated adenocarcinoma of esophagus Coronary artery disease S/P CABG Hyperlipidemia Appreciate palliative medicine input Currently on comfort measures only Patient/family understands and agrees with current management Very poor prognosis Continue current management Clinically deteriorating Code Status DNR/DNI Admission and Anticipated Discharge Date Admission Date: December 08, 2022 Subjective Patient is seen and examined at bedside Obtunded Mild respiratory distress Discussed with patient's family at bedside On comfort measures Review of Systems Review of Systems: Unobtainable due to reduced consciousness Physical Exam Physical Exam: Physical Exam: Vitals signs as noted above General Appearance: Elderly, ill appearing Head: normocephalic, Atraumatic Eyes: normal inspection, EOMI Neck: supple, Trachea midline Respiratory/Chest: Decreased breath sounds, CTA, + accessory muscle use Cardiovascular: S1, S2, tachycardic, no murmur Abdomen/GI:Soft, Non tender, Bowel sounds present Extremities/Musculoskeletal:normal inspection, no edema Neurologic/Psych:Obtunded Skin: normal color, warm Results & Data Results & Data ([facility]) Vital Signs (Past 12 Hours) Vital Signs Temp Pulse Resp BP Pulse Ox O2 Del Method O2 Flow Rate 12/13/22 08:42 Nasal Cannula 2 12/13/22 08:13 39.0 C H 162 H 22 71/50 L 86 L Nasal Cannula 2
[2022-12-14] MEDS: HEPARIN 100 UNIT/ML 5ML FLUSH FLUSH PRN (05:16)
[2022-12-14] MEDS: GLYCOPYRROLATE 0.2 MG/ML VIAL IV PRN (05:16)
[2022-12-14] MEDS: MoRPHine SULFATE 2 MG/ML CARP IV PRN (05:16)
--- NOTE | 2022-12-14 07:34 | Discharge Summary ---
Date of Service December 14, 2022 Admission HPI Per Admitting Provider CHIEF COMPLAINT: Weakness, anemia. HISTORY OF PRESENT ILLNESS: This is a 72-year-old female with past medical history significant for CAD, status post CABG, status post stent, paroxysmal atrial fibrillation. Eliquis was stopped last admission because of esophageal cancer and high risk of bleeding and only on aspirin, history of resolved cardiomyopathy, history of peripheral vascular disease, history of TIA, hyp ertension, hyperlipidemia, history of Williamson's esophagus, recent diagnosis of esophageal adenocarcinoma, history of prediabetes, chronic anemia, baseline hemoglobin around 9-10, history of tobacco abuse, used to smoke 1-2 packs of cigarettes daily, currently seems to be smoking 1-2 cigarettes daily. The patient was diagnosed with esophageal adenocarcinoma on 09/03/2022 and when she was getting EGD done on 10/17/2022, she was in SVT and also she was admitted on 10/31/2022 with nausea, SVT, and rapid AFib, and she had prolonged hospital stay and she was discharged on 11/12/2022. During the hospital stay, she was seen by cardiology and GI. Found to have gastritis, esophagitis, and also endoscopic ultrasound on 11/04/2022 showed distal esophageal circumferential malignancy stage III, N0 MX by sonographic criteria and a very high risk of massive upper GI bleeding if she is on anticoagulation due to ongoing blood oozing over the large esophageal cancer.And she had EGD on 11/06/2022 showing obstructing malignant esophageal tumor in the lower third of the esophagus, esophageal stent placed. She was placed on Protonix and Pepcid. Aspirin was restarted on 11/09/2022. Eliquis was held indefinitely due to high risk of upper GI bleed. The patient is supposed to be on amiodarone. At the time of discharge, she was prescribed amiodarone, but seems not on medrec done today The patient is a poor historian. Tried to call the and he said the patient was sent here because of sickness, but when asked further questions, he got somewhat irritated and said he is not a doctor. There is a question of some vomiting of blood, but I could not get any history from the patient and the . The patient says she is not ambulating since her discharge. She is having some chest pain, feeling of heart racing, some abdominal discomfort. Appetite is poor. Denies any headache. No blurred visions, no cough, no fevers, no runny nose, has some sore throat. She says she did not notice any blood in the stool, but she says they found it out here. She says she is micturating okay. Alert and oriented, but somewhat weak.Eddie was covid and flu positive in ER. Denies fevers or so b.But she was satting 85% on room air. Admission Exam Per Admitting Provider PHYSICAL EXAMINATION: VITAL SIGNS: Temperature 36.9, pulse 120s, respiratory rate 20s, blood pressure 90/51, oxygen 100% on nasal cannula, 85% when she came in. HEENT: Pupils equal, round, and reactive to light. Oral mucosa moist. NECK: No JVD. No neck masses. CARDIOVASCULAR: S1 and S2 heard. Somewhat tachycardia. No murmurs. RESPIRATORY SYSTEM: Normal AP diameter. No accessory muscle use. No wheezing or crackles. ABDOMEN: Soft, bowel sounds present, nontender, no distention. CENTRAL NERVOUS SYSTEM: Alert and oriented. Speech is clear. No facial droop. Insight seems okay. Obeys simple commands. Moves extremities. EXTREMITIES: No edema, no erythema. Principal Diagnosis Suspected upper GI bleed Likely due to esophageal adenocarcinoma Acute blood loss anemia Chemotherapy-induced pancytopenia COVID-19 infection Influenza A A. fib with RVR Poorly differentiated adenocarcinoma of esophagus Coronary artery disease S/P CABG Hyperlipidemia Discharge Data Allergies Allergy/AdvReac Type Severity Reaction Status Date / Time sumatriptan AdvReac Unknown advised to Verified 12/08/22 18:58 avoid d/t hx heart surgery varenicline AdvReac Unknown advised to Verified 12/08/22 18:58 avoid d/t hx heart surgery Consultations 12/08/22 18:53 ED Decision to Admit Stat 12/09/22 10:10 Consult Cardiology Routine 12/09/22 10:26 Consult Palliative Care Routine Procedures Performed Laboratory Results WBC 1.92 K/ul (4.8-10.8) L 12/10/22 05:54 RBC 3.65 M/uL (3.93-5.22) L 12/10/22 05:54 Hgb 10.0 g/dl (12.0-16.0) L 12/10/22 05:54 Hct 30.3 % (34.1-44.9) L 12/10/22 05:54 MCV 83.0 fL (80.0-100.0) 12/10/22 05:54 MCH 27.4 pg (25.0-34.0) 12/10/22 05:54 MCHC 33.0 g/dL (32.0-36.0) 12/10/22 05:54 RDW Std Deviation 44.2 fL (36.4-46.3) 12/10/22 05:54 RDW Coeff of Cassi 14.6 % (11.5-14.5) H 12/10/22 05:54 Plt Count 101 K/uL (130-400) L 12/10/22 05:54 MPV 13.0 fL (9.4-12.3) H 12/10/22 05:54 Immature Gran % (Auto) 4.7 % 12/10/22 05:54 Neut % (Auto) 68.3 % 12/10/22 05:54 Lymph % (Auto) 10.4 % 12/10/22 05:54 Aiken % (Auto) 15.6 % 12/10/22 05:54 Eos % (Auto) 0.0 % 12/10/22 05:54 Baso % (Auto) 1.0 % 12/10/22 05:54 Neut # (Auto) 1.31 K/uL (1.4-6.5) L 12/10/22 05:54 Lymph # (Auto) 0.20 K/uL (1.2-3.4) L 12/10/22 05:54 Aiken # (Auto) 0.30 K/uL (0.24-0.82) 12/10/22 05:54 Eos # (Auto) 0.00 K/uL (0-0.50) 12/10/22 05:54 Baso # (Auto) 0.02 K/uL (0-0.2) 12/10/22 05:54 Immature Gran # (Auto) 0.09 K/uL (0.00-0.02) H 12/10/22 05:54 Absolute Nucleated RBC 0.03 K/uL (0-0) H 12/10/22 05:54 Nucleated RBC % (auto) 1.6 % 12/10/22 05:54 Toxic Granulation 1+ 12/08/22 15:11 Giant Platelets 1+ 12/10/22 05:54 Echinocytes 2+ 12/10/22 05:54 Acanthocytes (Spur) 1+ 12/09/22 05:36 PT 12.9 Seconds (9.0-12.0) H 12/08/22 15:11 INR 1.2 (0.9-1.1) H 12/08/22 15:11 APTT 36.2 Seconds (21.0-31.0) H 12/08/22 15:11 PTT Ratio 1.3 12/08/22 15:11 Sodium 131 mmol/L (136-145) L 12/10/22 05:54 Potassium 3.9 mmol/L (3.5-5.1) D 12/10/22 05:54 Chloride 101 mmol/L (98-107) 12/10/22 05:54 Carbon Dioxide 21 mmol/L (21-32) 12/10/22 05:54 Anion Gap 9 (3-11) 12/10/22 05:54 BUN 16 mg/dl (6-23) 12/10/22 05:54 Creatinine 0.40 mg/dl (0.6-1.2) L 12/10/22 05:54 Est Cr Clr Drug Dosing 183.2 ml/min 12/10/22 05:54 Est GFR ( Amer) 120.6 ml/min 12/10/22 05:54 Est GFR (Non-Af Amer) 104.1 ml/min 12/10/22 05:54 BUN/Creatinine Ratio 40.0 (10-20) H 12/10/22 05:54 Glucose 100 mg/dl (70-99(Fasting)) H 12/10/22 05:54 Estimat Average Glucose 137 mg/dl 12/09/22 05:36 Hemoglobin A1c 6.4 % (4.5-5.6) H 12/09/22 05:36 Calcium 7.0 mg/dl (8.5-10.1) L 12/10/22 05:54 Magnesium 1.6 mg/dl (1.7-2.4) L 12/09/22 05:36 Total Bilirubin 1.2 mg/dl (0.2-1.0) H 12/10/22 05:54 AST 13 U/L (13-39) 12/10/22 05:54 ALT 11 U/L (7-52) 12/10/22 05:54 Alkaline Phosphatase 61 U/L (34-104) 12/10/22 05:54 Troponin I High Sens 13.3 pg/ml (0-14) 12/09/22 16:37 Total Protein 4.0 gm/dl (6.0-8.3) L 12/10/22 05:54 Albumin 1.8 gm/dl (3.4-5.0) L 12/10/22 05:54 Globulin 2.2 gm/dl (2.5-4.0) L 12/10/22 05:54 Albumin/Globulin Ratio 0.8 (0.9-2) L 12/10/22 05:54 Stool Occult Bld Scrn Positive (Negative) A 12/10/22 05:30 SARS-CoV-2 (PCR) POSITIVE (Negative) A* 12/08/22 15:25 Influenza Type A (PCR) Positive (Neg) A* 12/08/22 15:25 Influenza Type B (PCR) Negative (Neg) 12/08/22 15:25 RSV (RT-PCR) Negative (Neg) 12/08/22 15:25 Blood Type O Positive 12/08/22 16:52 Antibody Screen NEGATIVE 12/08/22 16:52 Crossmatch See Detail 12/08/22 16:52 Impressions Chest X-Ray 12/08/22 15:38 XR chest 1V portable HISTORY: Chest pain, nonspecific COMPARISON: Chest 11/07/2019. FINDINGS: No pneumothorax. Trace bilateral pleural effusions remain unchanged. Interstitial thickening within the lung bases and a linear scarlike density within the right lower lobe persist. There are post sternotomy changes. Right Port-A-Cath terminates in the distal SVC. Cervical spinal fusion hardware. Gastric pull-through with an associated stent again noted. IMPRESSION: 1. No significant change compared to the prior study. 2. Emphysema with chronic interstitial thickening again noted at the lung bases. 3. Trace bilateral pleural effusions persist. 4. Gastric pull-through with stent, unchanged. ACT 112: Negative or not required by law. Electronically signed by: John Jones M.D. 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 She underwent endoscopic ultrasound on November 04 which showed distal esophageal circumferential malignancy, stage III, N0 MX by endosonographic criteria. She also had EGD done on 11/06/2022 showing obstructing malignant esophageal tumor in the lower third of the esophagus. Esophageal stent placed. She received C1 D1 carbo/Taxol with radiation on December 02, 2022 by oncology as outpatient. Patient presented with complaint of hematemesis, nausea and decreased appetite. In the ED, patient was hypotensive, afebrile and saturating well on room air. She was found to be pancytopenic with hemoglobin around 7; received 2 units of blood. She was also found to have COVID-19 infection and influenza A positive. Patient was admitted to telemetry for further care. Suspected upper GI bleed Likely due to esophageal adenocarcinoma Acute blood loss anemia Chemotherapy-induced pancytopenia COVID-19 infection Influenza A A. fib with RVR Poorly differentiated adenocarcinoma of esophagus Coronary artery disease S/P CABG Hyperlipidemia Appreciate palliative medicine input on comfort measures Patient/family understands and agrees with current management Very poor prognosis Patient on 12/14/22 at 5:25 AM while on Comfort Measures. Code Status DNR/DNI Total Time Total Time Spent Total Time Spent (In Minutes): 45 Discharge Plan Discharge Items Patient Disposition: Other Date/Time: 12/14/22 05:25
== END 2022-12-14 10:00 | disposition expired | DRG 374 ==
LOC: ED 14:45 → 4W 21:38 → SUATTDRO 21:38 → 4W 22:50 → 3E 12-10 19:50